=== PATIENT | male | born 1980 | race Caucasian/White ===

== ENCOUNTER 2024-12-02 14:46 | Emergency (ER) | payer BC, SELFPAY ==
[2024-12-02 14:47] VITALS: BP 153/97; PULSE 130; RESP 18; TEMP 37; O2SAT 94; BMI 26.6
--- NOTE | 2024-12-02 14:56 | CT_ITS ---
PROCEDURE: CT CHEST, ABD, PEL W/CONTRAST 12/02/2024 REASON FOR EXAM: ASCITES ?? TECHNIQUE: Chest, abdomen and pelvis CT with intravenous contrast. Coronal and Sagittal reconstruction series were provided. One or more dose reduction techniques were used (e.g., Automated exposure control, adjustment of the mA and/or kV according to patient size, use of iterative reconstruction technique. CONTRAST: Isovue 370 VOLUME: 98mL RADIATION DOSE SUMMARY: CTDlvol: 9+ 12+ 7 mGy DLP: 939 mGycm COMPARISON: None. FINDINGS: CT CHEST: The peripheral soft tissues are unremarkable. Degenerative changes of the spine. The thyroid is unremarkable. Normal caliber esophagus. No mediastinal lymphadenopathy. The heart is normal in size. Right lower lobe density with attenuation similar to paraspinal musculature with air bronchograms in a pattern favoring pneumonia CT ABDOMEN/PELVIS: The liver is enlarged, heterogeneously hypodense, with an irregular surface contour consistent with chronic liver disease. There is a focal ill-defined region adjacent to the gallbladder fossa measuring 5.2 ??? 3.5 cm, which protrudes slightly outward; a mass cannot be excluded. The parenchyma is heterogeneous with centrally located hyperdensity and linear striations, likely reflecting altered hepatic architecture. There is recanalization of the umbilical vein and tortuous upper abdominal vessels suspicious for varices. Moderate ascites is present. The gallbladder, pancreas, spleen, adrenals, and kidneys are unremarkable, with symmetric renal enhancement and no hydronephrosis. The urinary bladder and prostate are normal. The bowel is normal in caliber. The peripheral soft tissues are unremarkable. Degenerative changes are noted in the spine. CT/CT Chest, Abd, Pel w/Contrast IMPRESSION: *Findings consistent with cirrhosis and portal hypertension, evidenced by irreg ular hepatic contour, recanalized umbilical vein, varices, and moderate ascites. *Ill-defined 5.2 ??? 3.5 cm region adjacent to the gallbladder fossa-hepatocell ular carcinoma or other neoplastic process cannot be excluded. Recommend multiphase contrast-enhanced CT or MRI for further characte rization. *No additional acute abnormalities. Reading Location: [id number]
--- NOTE | 2024-12-02 14:57 | EDS_ITS ---
HPI HPI - GI History of Present Illness Chief Complaint: Edema Detail of Chief Complaint: Possible abdominal ascites. Informant: patient Abdominal Pain/Flank Pain Onset: Days Context: Gradual Onset Timing: Continuous Quality: Cramping Location: Diffuse Current Severity: Mild Maximum Severity: Mild Worsened by: Nothing Relieved by: Nothing Nausea/Vomiting/Emesis GI Symptom: Negative for Nausea Diarrhea/Melena/Hematochezia GI Symptom: Positive for - (Constipation for about a week. Has had some bowel movement.); Negative for Diarrhea, Melena or Hematochezia Onset: Days Severity: Mild Associated Symptoms Associated Symptoms: Negative for Dysuria, Frequency, Hematuria or Urgency Narrative Narrative: 43-year-old male history of fatty liver. Prior evaluation in [place] and was told he did not have cirrhosis at that time but that was a year or 2 ago. States has had abdominal swelling the last several days to a week. Also had constipation. His concern is possible ascites. Said some mild nausea. No vomiting. No diarrhea. No fever. No dysuria. No urinary retention. Says urinating well. Denies any significant weight loss. Prior similar symptoms: Yes Recent Illness/Hospitalization: No PFSH PFS Home Medications ?Medication ?Instructions ?Recorded ?Last Taken ?Type famotidine 10 mg tablet (Acid 10 mg PO DAILY 12/02/24 Unknown History Controller) simethicone 250 mg capsule (Gas-X) 250 mg PO DAILY PRN 12/02/24 Unknown History gastrointestinal spasms or cramping Allergy/AdvReac Type Severity Reaction Status Date / Time No Known Allergies Allergy Verified 12/02/24 16:24 Social History Smoking Status: Current every day smoker tobacco type: cigarettes ROS ROS ED ROS Narrative Constipation. Abdominal bloating. Cramping. Constitutional Constitutional ED: Denies chills or fever(s) ENT ENT ED: Denies ear pain Cardiovascular Cardiovascular: Denies chest pain Respiratory/Chest Respiratory/Chest: Denies cough Gastrointestinal Gastrointestinal: Reports abdominal pain, constipation and nausea; Denies diarrhea, melena or vomiting Genitourinary Genitourinary ED: Denies dysuria, hematuria or urinary frequency Musculoskeletal Musculoskeletal: Denies arthralgias, back pain or myalgias Integumentary Denies abscess or Abrasions Neurologic Neurologic: Denies headache(s) Psychiatric Psychiatric: Denies anxiety Endocrine Endocrinology: Denies polydipsia Hematologic/Lymphatic Hematologic/Lymphatic: Denies easy bleeding or easy bruising Allergic/Immunologic Allergic/Immunologic ED: Denies mouth swelling, tongue swelling or urticaria EXAM Physical Exam Narrative Exam Narrative: 43-year-old male sitting upright in bed vital signs stable afebrile. He is little tachycardic. He seems anxious. H EENT exam pupils round react light. Moist mucous membranes. Neck nontender no JVD. Lungs clear to auscultation bilaterally. Heart tachycardic 115 no murmur. Chest wall and ribs nontender. Abdomen mildly bloated. But no peritoneal signs. No localizing tenderness. No hernia no mass. No obstruction no pulsatile mass. I do not really feel an ascites wave. Moving all 4 extremities. Nontender no edema. Normal range of motion. Normal strength. Back nontender. Neurologically he is awake and alert . Answering questions following commands. No focal motor deficits. Const Vital Signs: 12/02/24 14:47 12/02/24 14:53 Temperature 98.6 F Temperature Source Temporal Pulse Rate 130 H Respiratory Rate 18 Respiratory Effort Normal Respiratory Pattern Normal Blood Pressure 153/97 H Blood Pressure Mean 115 Pulse Ox 94 Oxygen Delivery Method Room Air Positive well nourished and well developed; Negative for cachectic, contractures or unkempt General Appearance ED: well developed and NAD; Negative for unkempt, cachectic, contractures or pallor Nutritional Appearance: Negative for cachectic HEENT Reports moist mucous membranes normocephalic and atraumatic Eyes PERRL and EOMs intact bilaterally General Eye ED: Negative for pale conjunctiva or scleral icterus Neck no lymphadenopathy, supple and no JVD Resp normal respiratory effort and clear to auscultation bilaterally Cardio regular rhythm, S1 normal heart sound, S2 normal heart sound and no murmurs; Negative for regular rate Rate: tachycardic GI non-tender, non-distended and no masses Inspection: Negative for abdominal distention Auscultation: normoactive bowel sounds Palpation: soft; Negative for tender, guarding, rigid, hepatomegaly, splenomegaly, hernia, mass, pulsatile mass or rebound tenderness present Back/Spine no CVA tenderness General Back: Negative for CVA tenderness Cervical Spine: Negative for cervical spine tenderness Thoracic Spine / Upper Back: Negative for thoracic spinal tenderness Lumbar Spine / Lower Back: Negative for lumbar spinal tenderness Extremity full ROM General Extremety ED: Negative for edema or tenderness General Extremity: Negative for edema Neuro CN's II-XII intact bilaterally and moves all extremities Sensorium / Orientation: alert, oriented to person, oriented to place and oriented to time; Negative for orientation impaired Motor Exam: strength 5/5 throughout Psych mental status grossly normal and thought process normal Appearance: Negative for unkempt Attitude: No agitated Mood & Affect: anxious; Negative for depressed or tearful Skin no wounds General Skin Exam: Negative for jaundice or pallor Lesions: no lesions Rashes: no rashes Trauma: Negative for abrasion MDM MDM MDM Narrative Medical decision making narrative: 43-year-old male with concerns for possible abdominal ascites he had a very benign exam. There may be being a little bloated which may be from constipation versus rule out ascites his exam is totally benign. There is no edema in his lower extremities. Greening labs to be obtained of his abdomen and his CT of his abdomen and pelvis. Repeat exam is unchanged. I went over all the test results with the patient. His elevated liver enzymes which are significantly higher than they were 2 years ago when he had this workup done at the [facility]. His CAT scan results. I spoke to Dr. Mckeon of GI. He will ensure the patient gets close follow-up with his office this week. Patient knows to call the office tomorrow. Get scheduled for an appointment next several days. He understands he may need a liver biopsy or further imaging studies. He is comfortable being discharged home. History & Record Review Discussion w/independent historian: Patient Additional record(s) reviewed:: No prior records Lab Data Attestation: I reviewed the patient's lab results. Lab results narrative: CBC shows a white count of 16.2 H&H of 13.2 and 36. Platelets slightly low at 115. Chemistries show a gap of 18. BUN/creatinine 10 and 0.5. Glucose 120. Liver enzymes showed total bilirubin 9.4. AST of 265. ALT 79. Alk phos 262. Lipase is slightly elevated at 115. Labs: Laboratory Results - last 24 hr 12/02/24 15:04 WBC 16.2 H RBC 3.50 L Hgb 13.2 Hct 36.8 L MCV 105.1 H MCH 37.7 H MCHC 35.9 RDW Std Deviation 61.8 H RDW Coeff of Johnson 15.9 H Plt Count 115 L MPV 12.2 H Immature Gran % (Auto) 0.400 Neut % (Auto) 81.8 H Lymph % (Auto) 10.1 L Gibson % (Auto) 7.4 Eos % (Auto) 0.1 Baso % (Auto) 0.2 Absolute Neuts (auto) 13.2 H Absolute Lymphs (auto) 1.63 Nucleated RBC % 0 Sodium 133 Potassium 3.8 Chloride 93 L Carbon Dioxide 22.1 Anion Gap 18 H BUN 10 Creatinine 0.59 L Estim Creat Clear Calc 156.19 Est GFR (MDRD) Non-Af 124 BUN/Creatinine Ratio 17.3 Glucose 120 H Calcium 9.3 Total Bilirubin 9.42 H AST 265 H ALT 79 H Alkaline Phosphatase 262 H Total Protein 6.7 Albumin 3.9 Globulin 2.8 Albumin/Globulin Ratio 1.4 Lipase 115 H Radiography Diagnostic Testing: Clinical Impression(s) from Imaging Studies Chest/Abdomen/Pelvis CT 12/02/24 14:56 IMPRESSION: *Findings consistent with cirrhosis and portal hypertension, evidenced by irregular hepatic contour, recanalized umbilical vein, varices, and moderate ascites. *Ill-defined 5.2 ??? 3.5 cm region adjacent to the gallbladder fossa- hepatocellular carcinoma or other neoplastic process cannot be excluded. Recommend multiphase contrast-enhanced CT or MRI for further characterization. *No additional acute abnormalities. Reading Location: [facility] Discharge Plan Triage Chief Complaint: Edema ED Provider: Taj Nieves Dx/Rx/DC Orders Clinical Impression: Abdominal pain, Elevated liver enzymes, Abdominal ascites, Constipation Instructions: ED Ascites, ED Constipation (Adult) Prescriptions: No Action Gas-X 250 mg capsule 250 mg PO DAILY PRN (Reason: gastrointestinal spasms or cramping) famotidine [Acid Controller] 10 mg tablet 10 mg PO DAILY Primary Care Provider: Val Patrick NP Referrals: Zac Byers MD [Non-Staff] - Keegan Mckeon DO [Med Staff - Active Staff] - As soon as possible (Call the siding installer office tomorrow, Dr. Mckoen, tell them you were seen in the ER today. That I spoke to Dr. Mckeon. And that they need to get you an appointment this week.) Activity Restrictions/Additional Instructions: GoLytely for the constipation. Drink a 10 ounce glass every half an hour to an hour to give a large bowel movement. You have an enlarged liver with elevated liver enzymes and some fluid in your abdomen called ascites. I spoke to our GI doctor, Dr. Mckeon, call his office tomorrow they will get you in this week. You need further evaluation of this including possibly a liver biopsy. May be an MRI. Once they see you and look at all your test they can determine what additional testing they need to do. Print Language: Palauan Disposition Disposition: Home, Self Care
[2024-12-02 15:31] LABS: Hematocrit 36.8 % (40-54); Hemoglobin 13.2 g/dL (13.0-16.5); Immature Granulocytes Count 0.060 X10^3/uL (0.0-0.0); Mean Corp Hgb Conc 35.9 g/dL (32-36); Mean Corpuscular Volume 105.1 fL (80-94); Mean Platelet Vol. 12.2 fl (6.2-12.0); NRBC Flagged by Analyzer 0 % (0-5); Platelet Count 115 K/mm3 (150-450); RBC Distribution Width CV 15.9 % (11.6-14.6); RBC Distribution Width SD 61.8 fl (35.1-43.9); Red Blood Count 3.50 M/mm3 (4.6-6.2); White Blood Count 16.2 K/mm3 (4.4-11.0)
[2024-12-02 15:46] LABS: Lipase 115 U/L (13-75)
[2024-12-02 15:49] LABS: AST(SGOT) 265 U/L (<=37); Alanine Aminotransfer ALT/SGPT 79 U/L (<=46); Albumin, Serum 3.9 g/dL (3.5-5.0); Alkaline Phosphatase 262 U/L (40-129); Anion Gap 18 (5-15); BUN 10 mg/dL (4-19); BUN/Creat Ratio 17.3 RATIO (10-20); Calcium,Total 9.3 mg/dL (7.6-11.0); Carbon Dioxide 22.1 mmol/L (21.0-32.0); Chloride 93 mmol/L (98-108); Estimated Creatinine Clearance 156.19 ml/min (50-250); Globulin 2.8 g/dL (2.2-4.2); Glucose 120 mg/dL (70-99); Potassium 3.8 mmol/L (3.3-5.1)
[2024-12-02] MEDS: Electrolyte Solution/Peg's 4000 ML 2000 ML PO (17:07)
[2024-12-02 17:09] VITALS: BP 145/87; PULSE 114; RESP 16; TEMP 36.6; O2SAT 989
== END 2024-12-02 17:09 | disposition home or self-care (01) ==
PROVIDERS: Emergency Provider Emergency Medicine; PCP Nurse Practitioner Family; Visit Provider Emergency Medicine
DX: R10.9 Unspecified abdominal pain (principal); K59.00 Constipation, unspecified; R18.8 Other ascites; R74.8 Abnormal levels of other serum enzymes; F17.210 Nicotine dependence, cigarettes, uncomplicated
CPT/HCPCS: 71260; 74177; 80053; 83690; 85025; 99283; Q9967; A4216

== ENCOUNTER → 2024-12-04 | Outpatient (CLI) | payer BC, SELFPAY ==
[2024-12-04 12:14] LABS: Hematocrit 35.9 % (40-54); Hemoglobin 13.0 g/dL (13.0-16.5); Immature Granulocytes Count 0.100 X10^3/uL (0.0-0.0); Mean Corp Hgb Conc 36.2 g/dL (32-36); Mean Corpuscular Volume 106.8 fL (80-94); Mean Platelet Vol. 12.9 fl (6.2-12.0); NRBC Flagged by Analyzer 0 % (0-5); Platelet Count 101 K/mm3 (150-450); RBC Distribution Width CV 16.2 % (11.6-14.6); RBC Distribution Width SD 63.7 fl (35.1-43.9); Red Blood Count 3.36 M/mm3 (4.6-6.2); White Blood Count 15.6 K/mm3 (4.4-11.0)
[2024-12-04 12:26] LABS: Prothrombin Time (Protime)PT. 15.7 SECONDS (11.7-14.9)
[2024-12-04 13:47] LABS: Hepatitis B Surface Antigen Nonreactive (Nonreactive); Hepatitis C Antibody Nonreactive (Nonreactive)
[2024-12-04 13:55] LABS: AST(SGOT) 196 U/L (<=37); Alanine Aminotransfer ALT/SGPT 72 U/L (<=46); Albumin, Serum 3.6 g/dL (3.5-5.0); Alkaline Phosphatase 227 U/L (40-129); Anion Gap 21 (5-15); BUN 10 mg/dL (4-19); BUN/Creat Ratio 16.7 RATIO (10-20); Bilirubin, Direct 11.30 mg/dL (0.00-0.30); Calcium,Total 8.7 mg/dL (7.6-11.0); Carbon Dioxide 20.1 mmol/L (21.0-32.0); Chloride 88 mmol/L (98-108); Globulin 2.6 g/dL (2.2-4.2); Glucose 86 mg/dL (70-99); Potassium 3.2 mmol/L (3.3-5.1)
[2024-12-05 05:07] LABS: GGTP 1155 IU/L (0-65)
== END | disposition home or self-care (01) ==
LOC: LAB 11:32
PROVIDERS: PCP Nurse Practitioner Family; Referring Provider Nurse Practitioner Acute Care; Visit Provider Nurse Practitioner Acute Care
DX: R74.8 Abnormal levels of other serum enzymes (principal); R18.8 Other ascites; R10.9 Unspecified abdominal pain; R93.5 Abnormal findings on diagnostic imaging of other abdominal regions, including retroperitoneum
CPT/HCPCS: 36415; 80048; 80076; 82105; 82977; 85025; 85610; 86704; 86706; 86708; 86803; 87340

== ENCOUNTER → 2024-12-04 | Outpatient (CLI) | payer BC, SELFPAY ==
--- NOTE | 2024-12-04 13:50 | MRI_ITS ---
PROCEDURE: MRI ABD WITH AND W/O CONTRAST 12/04/2024 REASON FOR EXAM: ABNORMAL CT, PALPABLE ABDOMINAL MASS TECHNIQUE: MRI ABD WITH AND W/O CONTRAST Multiplanar and multisequence images were obtained. CONTRAST: Clariscan VOLUME: 15 mL COMPARISON: CT scan on 12/02/2024. FINDINGS: Bilateral basilar atelectatic pulmonary changes. Cirrhotic liver. Large number of regenerative nodules replacing the hepatic parenchyma. When correlated to the CT scan performed on 12/02/2024. The suspected liver mass adjacent to gallbladder fossa represents regenerative nodules. No suspicious enhancing nodule. No suspicious enhancing hepatic mass. Changes of portal hypertension. Recanalization of the umbilical vein. Prominent perigastric and periesophageal varices are noted. Moderate ascites is noted. Moderate mesenteric congestion. Diffuse spondylosis. Diffuse thickening of the stomach and the small bowels which is probably secondary to portal hypertension/ascites. Normal gallbladder and extrahepatic biliary system. Normal spleen. Normal pancreas. Normal bilateral adrenal glands. Normal size of the right kidney. There is no right renal mass. There are no right renal calculi. There is no right hydronephrosis. Normal visualized right ureter. Normal size of the left kidney. There is no left renal mass. There are no left renal calculi. There is no left hydronephrosis. Normal visualized left ureter. Normal abdominal aorta. Normal inferior vena cava. Normal retroperitoneum. Normal abdominal wall. MRI/MRI Abd WITH and W/O Contrast IMPRESSION: Bilateral basilar atelectatic pulmonary changes. Cirrhotic liver. Large number of regenerative nodules replacing the hepatic parenchyma. When correlated to the CT scan performed on 12/02/2024. The suspected liver mas s adjacent to gallbladder fossa represents regenerative nodules. No suspicious enhancing nodule. No suspicious enhancing hepatic mass. Changes of portal hypertension. Recanalization of the umbilical vein. Prominent perigastric and periesophageal varices are noted. Moderate ascites is noted. Moderate mesenteric congestion. Diffuse spondylosis. Diffuse thickening of the stomach and the small bowels which is probably second magdaleno to portal hypertension/ascites. Reading Location: [place] [id number]
== END | disposition home or self-care (01) ==
LOC: OPMRI 13:48
PROVIDERS: PCP Nurse Practitioner Family; Referring Provider Nurse Practitioner Acute Care; Visit Provider Nurse Practitioner Acute Care
DX: R74.8 Abnormal levels of other serum enzymes (principal); R18.8 Other ascites; R10.9 Unspecified abdominal pain; R93.5 Abnormal findings on diagnostic imaging of other abdominal regions, including retroperitoneum
CPT/HCPCS: 74183; A9575; A4216

== ENCOUNTER 2024-12-29 11:03 | Inpatient (IN) | payer BC, SELFPAY ==
[2024-12-29] VITALS (21 sets, daily range): BP systolic 77–99; BP diastolic 46–79; PULSE 56–160; RESP 14–20; TEMP 32.9–35.3; O2SAT 96–100; BMI 25.3
--- NOTE | 2024-12-29 11:24 | EKG12_ITS ---
Test Reason : ARRYTH Blood Pressure : */* mmHG Vent. Rate : 55 BPM Atrial Rate : 55 BPM P-R Int : 272 ms QRS Dur : 148 ms QT Int : 568 ms P-R-T Axes : 23 -14 27 degrees QTcB Int : 543 ms Sinus bradycardia with 1st degree A-V block Non-specific intra-ventricular conduction block Abnormal ECG Confirmed by Sher Velasquez ([id number]), editor city KELLY LOPEZ ([id number]) on 12/30/2024 11:59:06 AM Referred By: Confirmed By: Sher Velasquez
--- NOTE | 2024-12-29 11:58 | CT_ITS ---
PROCEDURE: BRAIN/HEAD WITHOUT CONTRAST 12/29/2024 REASON FOR EXAM: FALL, AMS End-stage liver disease/cirrhosis. TECHNIQUE: Procedure Code: CTBR Modality: CT Procedure: BRAIN/HEAD WITHOUT CONTRAST Coronal and Sagittal reconstruction series were provided. One or more dose reduction techniques were used (e.g., Automated exposure control, adjustment of the mA and/or kV according to patient size, use of iterative reconstruction technique. RADIATION DOSE SUMMARY: CTDlvol: 44.99 mGy DLP: 728.62 mGycm COMPARISON: None FINDINGS: Brain: Within normal limits for age CSF Spaces: Mild generalized cerebral atrophy Sinuses/Mastoids: Clear at visualized levels Bones: Unremarkable CT/Brain/Head without Contrast IMPRESSION: Mild degree of cerebral atrophy. Reading Location: [place] [id number]
--- NOTE | 2024-12-29 12:10 | EDS_ITS ---
HPI History of Present Illness Chief Complaint: Abn Labs Informant: patient and spouse/S.O. Narrative Narrative: Patient is a 44-year-old male with history of alcoholic hepatitis, jaundice, ascites and possible hepatic cell carcinoma presenting for evaluation of i ncreased weakness, worsening jaundice fall. Patient has an appointment to see nurse practitioner for GI today and was recommended that he be sent to the ER for concern of decompensated and progressive jaundice. Patient most recently was admitted at for decompensated alcoholic cirrhosis and discharged on 12/12/2024. notes that he has been worsening over the past 3 to 4 days. His last drink was December 01. He was weak and dizzy and fell in the bathroom today. He does not think he hit his head. He states that he has been compliant with his lactulose and is confused on bowel movements (denies any black or blood in his stool). Has not had his lactulose today because of doctors appointments. He denies any chest pain but does have some ongoing upper abdominal pain which is stable. Has chronic swelling to have his abdomen. Denies any urinary symptoms. No other complaints or concerns reported at this time. PFSH [facility] Medical History no medical history Home Medications ?Medication ?Instructions ?Recorded ?Last Taken ?Type famotidine 10 mg tablet (Acid 20 mg PO DAILY 12/02/24 12/29/24 History Controller) ondansetron HCl 4 mg tablet 4 mg PO Q8H nausea #3 tabs 12/04/24 Unknown Rx furosemide 20 mg tablet (Lasix) 40 mg PO QAM 12/29/24 12/29/24 History furosemide 40 mg tablet 40 mg PO DAILY 12/29/2412/15 History lactulose 10 gram/15 mL oral 20 ml PO Q8H 12/29/24 Unk nown History solution rifaximin 550 mg tablet (Xifaxan) 550 mg PO BID 12/29/24 History simethicone 80 mg chewable tablet 80 mg PO PRN 5 Unknown History (Gas Relief 80 (simethicone)) spironolactone 100 mg tablet 100 mg PO DAILY 12/29/24 12/29/24 History Allergy/AdvReac Type Severity Reaction Status Date / Time No Known Allergies Allergy Verified 12/29/24 11:06 Family History no significant family his Surgical History no surgical history Social History Smoking Status: Current every day smoker tobacco type: cigarettes alcohol intake: current alcohol intake frequency: a few times a week Alcohol type: beer ROS ROS ED Constitutional Constitutional ED: Reports chills and other Details: Generalized weakness ; Denies fever(s) Cardiovascular Cardiovascular: Denies chest pain Gastrointestinal Gastrointestinal: Reports abdominal pain; Denies melena, nausea or vomiting Musculoskeletal Musculoskeletal: Denies arthralgias or myalgias Integumentary Reports other Details: Worsening jaundice Neurologic Neurologic: Reports weakness Psychiatric Psychiatric: Denies anxiety Hematologic/Lymphatic Hematologic/Lymphatic: Reports easy bleeding and easy bruising EXAM Physical Exam Const Vital Signs: 12/29/24 11:04 12/29/24 11:06 12/29/24 11:13 Temperature 94 F L 95.4 F L Temperature Source Temporal Temporal Pulse Rate 160 H 160 H Respiratory Rate 20 H 20 H Respiratory Effort Normal Non-Labored Respiratory Pattern Blood Pressure 92/79 92/79 Blood Pressure Mean 83 83 Pulse Ox 98 98 Oxygen Delivery Method Room Air Room Air 12/29/24 12:03 12/29/24 12:06 12/29/24 13:00 Temperature 95.6 F L 95.3 F L Temperature Source Temporal Temporal Pulse Rate 57 L 56 L 57 L Respiratory Rate 20 H 18 Respiratory Effort Respiratory Pattern Blood Pressure 78/50 L 77/50 L Blood Pressure Mean 59 59 Pulse Ox 97 98 Oxygen Delivery Method Room Air Room Air 12/29/24 13:56 12/29/24 14:00 12/29/24 15:00 Temperature 95.3 F L 95.4 F L Temperature Source Temporal Temporal Pulse Rate 59 L 58 L Respiratory Rate 18 18 Respiratory Effort Respiratory Pattern Blood Pressure 80/52 L 86/50 L 87/55 L Blood Pressure Mean 61 62 65 Pulse Ox 98 98 Oxygen Delivery Method Room Air Room Air 12/29/24 15:05 12/29/24 16:00 Temperature 95.4 F L Temperature Source Oral Pulse Rate 60 64 Respiratory Rate 16 19 H Respiratory Effort Respiratory Pattern Normal Blood Pressure 93/55 L Blood Pressure Mean 67 Pulse Ox 98 Oxygen Delivery Method Room Air Positive well nourished and well developed General Appearance ED: well developed and NAD HEENT Reports moist mucous membranes Negative for trauma Eyes PERRL and EOMs intact bilaterally General Eye ED: Yes scleral icterus Neck supple Resp normal respiratory effort and clear to auscultation bilaterally Cardio regular rate and regular rhythm GI non-tender GI Narrative: Positive fluid wave Inspection: abdominal distention Palpation: soft; Negative for tender or guarding Extremity normal to inspection General Extremety ED: Negative for edema General Extremity: Negative for edema Neuro Neuro Narrative: Slightly tremulous, no asterixis Sensorium / Orientation: alert Motor Exam: general weakness Psych mental status grossly normal Skin no rashes or lesions noted and no wounds General Skin Exam: jaundice MDM MDM MDM Narrative Medical decision making narrative: Patient is evaluated for worsening generalized weakness and jaundice. Fall today denies any injury associate this fall. Has end-stage cirrhosis of the liver. Differential includes intracranial hemorrhage, decompensated liver disease, hyperammonia anemia, spontaneous bacterial peritonitis, renal failure, sepsis, electrolyte derangement and underlying infection. Patient's blood pressure soft in the emergency room and upon arrival he is quite tachycardic however this does improve with his heart rate without further intervention. Clinically he is quite jaundiced. Abdomen only minimally tender in lower suspicion for SBP based on abdominal exam. Patient has significant leukocytosis of 29 on CBC she has a normal hemoglobin. His platelets are low at 125 consistent with his history of cirrhosis. Blood cultures and lactate added on as patient is mildly hypothermic in the emergency room. He is gently rewarmed in the ER. He is given gentle IV fluids is not fluid overloaded him and his blood pressure does improve. INR is elevated 2.2 consistent again with liver failure. His BMP shows hyponatremia the sodium 121, hyperkalemia with a potassium of 6.3 and acute renal failure with a BUN of 145 and a creatinine of 16.20. Anion gap is 33 and his bicarb is 9. Due to the profound abnormalities on this I will recheck a renal function panel to ensure its accuracy however given his clinical presentation I think it is likely true. In addition his total bilirubin is now 34 with a direct bilirubin of 25.5. He has a chronic transaminitis. Ammonia is large normal at 52.2. Lipase is also elevated to 71. CT abdomen pelvis is obtained to look for any hydronephrosis or structural values of the kidney to explain his renal failure as well as looking for any signs of intra-abdominal infection. He has cirrhotic morphology of the liver with stigmata of portal hypertension and large volume ascites but otherwise normal CT. CT of the brain is obtained as he did have a fall, and is generally weak and confused. This is negative for any acute process. Patient is given sodium bicarb and calcium gluconate in the emergency room for his hyperkalemia. EKG shows slightly peaked T waves and prolonged MS interval/QTc consistent with changes associated with hyperkalemia. Renal function panel does show the same abnormalities. He still mildly hypoglycemic 65 and is given bolus of D10 in addition to the hyper-K order set. Call to GI is sent out however I think patient require transfer back to [facility] where he follows with hepatology, Dr. Renteria. Patient is given stress dose of Solu-Cortef in case he has some type of adrenal insufficiency given his acidosis, hyponatremia and hyperkalemia. Case is discussed with Dr. Zhang, nephrology who is agreeable with Lasix drip as well as sodium bicarb drip for correction of his hyperkalemia. Nursing staff attempted to place Pryor catheter however unable to advance it. Patient signed out to oncoming physician pending final disposition as patient likely require transfer to tertiary care given his severe metabolic derangements and comorbidities. Lab Data Attestation: I reviewed the patient's lab results. Labs: Laboratory Results - last 24 hr 12/29/24 12/29/24 12/29/24 12:05 13:10 13:38 WBC 29.0 H RBC 3.58 L Hgb 13.2 Hct 35.2 L MCV 98.3 H MCH 36.9 H MCHC 37.5 H RDW Std Deviation 50.1 H RDW Coeff of Johns[place] 14.0 Plt Count 125 L MPV 12.1 H Immature Gran % (Auto) 0.700 Neut % (Auto) 92.7 H Lymph % (Auto) 3.[address] [place] % (Auto) 2.7 Eos % (Auto) 0.0 Baso % (Auto) 0.1 Absolute Neuts (auto) 26.8 H Absolute Lymphs (auto) 1.10 Nucleated RBC % 0.1 PT 25.1 H INR 2.2 Sodium 121 L 120 L Potassium 6.3 H* 6.6 H* Chloride 80 L 81 L Carbon Dioxide 9.0 L* 7.2 L* Anion Gap 33 H 32 H BUN 145 H* 146 H* Creatinine 16.20 H* 16.00 H* Estim Creat Clear Calc 5.63 L* 5.70 L* Est GFR (MDRD) Non-Af 3 L 3 L BUN/Creatinine Ratio 9.0 L 9.1 L Glucose 70 65 L Lactic Acid 1.6 Calcium 7.5 L 7.3 L Phosphorus 17.0 H* Total Bilirubin 34.00 H* Direct Bilirubin 25.50 H AST 285 H ALT 145 H Alkaline Phosphatase 243 H Ammonia 52.2 Total Protein 4.9 L Albumin 2.5 L 2.4 L Globulin 2.4 Lipase 271 H POC Glucose 12/29/24 16:08 WBC RBC Hgb Hct MCV MCH MCHC RDW Std Deviation RDW Coeff of Johnson Plt Count MPV Immature Gran % (Auto) Neut % (Auto) Lymph % (Auto) [place] % (Auto) Eos % (Auto) Baso % (Auto) Absolute Neuts (auto) Absolute Lymphs (auto) Nucleated RBC % PT INR Sodium Potassium Chloride Carbon Dioxide Anion Gap BUN Creatinine Estim Creat Clear Calc Est GFR (MDRD) Non-Af BUN/Creatinine Ratio Glucose Lactic Acid Calcium Phosphorus Total Bilirubin Direct Bilirubin AST ALT Alkaline Phosphatase Ammonia Total Protein Albumin Globulin Lipase POC Glucose 310 H Radiography Diagnostic Testing: Clinical Impression(s) from Imaging Studies Brain CT 12/29/24 11:58 IMPRESSION: Mild degree of cerebral atrophy. Reading Location: [facility] Abdomen/Pelvis CT 12/29/24 13:28 IMPRESSION: Cirrhotic liver morphology. Fatty infiltration of the liver. Stigmata of portal hypertension including large volume ascites. Normal appearance of the kidneys. No collecting system dilation or calculus. Gallstones. No biliary ductal dilation. Reading Location: [id number] Rhythm Strip Rhythm Strip: Sinus Rhythm Rate: 55 Ectopy: None EKG Initial EKG: Attestation: I personally reviewed and interpreted this EKG as follows: Interpretation: Sinus Bradycardia Comments: Sinus bradycardia with first gravy block at a rate 55 bpm MS interval 272 Normal axis Prolonged QTc at 543 Nonspecific intraventricular conduction delay Normal ST segments No prior EKG available for comparison Management Discussion w/another healthcare provider: Quality Review Trainer Critical Care Time Critical Care Time: Yes Critical care time (excluding procedures): 30-74 minutes (45), Discussing w/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, Discussing w/Consultants and Arranging Admission or Transfer Discharge Plan Triage Chief Complaint: Abn Labs ED Provider: Roseline Norris Dx/Rx/DC Orders Clinical Impression: Decompensated cirrhosis, Fatigue, Acute renal failure, Acute hyperkalemia, Acute hyponatremia, Serum total bilirubin elevated, Leukocytosis Prescriptions: No Action ondansetron HCl 4 mg tablet 4 mg PO Q8H Qty: 3 0RF furosemide [Lasix] 20 mg tablet 40 mg PO QAM Xifaxan 550 mg tablet 550 mg PO BID famotidine [Acid Controller] 10 mg tablet 20 mg PO DAILY spironolactone 100 mg tablet 100 mg PO DAILY furosemide 40 mg tablet 40 mg PO DAILY simethicone [Gas Relief 80 (simethicone)] 80 mg tablet,chewable 80 mg PO PRN Rx Instructions: after meals lactulose 10 gram/15 mL solution 20 ml PO Q8H Primary Care Provider: Val Patrick NP Referrals: Val Patrick NP, [employer] [Primary Care Provider] - Print Language: [place] Disposition Disposition: Acute Care Hospital [facility]
[2024-12-29 12:28] LABS: Prothrombin Time (Protime)PT. 25.1 SECONDS (11.7-14.9)
[2024-12-29 12:47] LABS: Lipase 271 U/L (13-75)
[2024-12-29 12:55] LABS: Ammonia 52.2 umol/L (16-60)
--- NOTE | 2024-12-29 13:19 | ED.RN ---
Dr Norris notified of sepsis alert
--- NOTE | 2024-12-29 13:28 | CT_ITS ---
PROCEDURE: ABDOMEN/PELVIS WITHOUT CONT 12/29/2024 REASON FOR EXAM: ACUTE RENAL FAILURE Jaundice, ascites. Alcoholic hepatitis. TECHNIQUE: Procedure Code: CTABDPEL Modality: CT Procedure: ABDOMEN/PELVIS WITHOUT CONT Noncontrast technique limits evaluation of the abdominal and pelvic viscera. Coronal and Sagittal reconstruction series were provided. One or more dose reduction techniques were used (e.g., Automated exposure control, adjustment of the mA and/or kV according to patient size, use of iterative reconstruction technique). RADIATION DOSE SUMMARY: CTDlvol: 10 mGy DLP: 597 mGycm COMPARISON: December 04, 2024, December 02, 2024 FINDINGS: Lung bases: Atelectasis right lung base. Liver: Cirrhotic liver morphology. Recanalization of the umbilical vein. Diffuse fatty liver. No discrete reproducible mass seen, but sensitivity for masses is diminished without the use of intravenous contrast. Correlate with recent MRI performed December 04, 2024. Gallbladder: Small calculus seen dependently within the otherwise unremarkable gallbladder. Spleen: Normal. Pancreas: Normal. Adrenals: Normal. Kidneys: No calculus. No collecting system dilation. No mass seen. Bladder: Normal Reproductive Organs: Normal male Bowel: Stomach appears normal. Small bowel is normal. Colon is evacuated. Qualitative thickening likely on the basis of nondistention. A few scattered colonic diverticula are present. Lymph nodes: None appear enlarged. Vasculature: Normal caliber. Mild atherosclerotic plaque. Peritoneum / Retroperitoneum: Large volume ascites. No mass or free air. Bones: Facet hypertrophy lower lumbar spine. CT/Abdomen/Pelvis without Cont IMPRESSION: Cirrhotic liver morphology. Fatty infiltration of the liver. Stigmata of port al hypertension including large volume ascites. Normal appearance of the kidneys. No collecting system dilation or calculus. Gallstones. No biliary ductal dilation. Reading Location: [id number]
--- NOTE | 2024-12-29 13:28 | ED.RN ---
Dr Norris notified of critical lab values
[2024-12-29 13:29] LABS: AST(SGOT) 285 U/L (<=37); Alanine Aminotransfer ALT/SGPT 145 U/L (<=46); Albumin, Serum 2.5 g/dL (3.5-5.0); Alkaline Phosphatase 243 U/L (40-129); Anion Gap 33 (5-15); BUN 145 mg/dL (4-19); BUN/Creat Ratio 9.0 RATIO (10-20); Bilirubin, Direct 25.50 mg/dL (0.00-0.30); Calcium,Total 7.5 mg/dL (7.6-11.0); Carbon Dioxide 9.0 mmol/L (21.0-32.0); Chloride 80 mmol/L (98-108); Estimated Creatinine Clearance 5.63 ml/min (50-250); Globulin 2.4 g/dL (2.2-4.2); Glucose 70 mg/dL (70-99); Potassium 6.3 mmol/L (3.3-5.1)
--- NOTE | 2024-12-29 13:38 | CHAPLAIN ---
Type of Pastoral Visit _x__ Initial Visit ___ Follow-up Visit ___ On-call Visit ___ General Patient Visit ___ Spiritual Assessment ___ Family Conference ___ Bereavement ___ Rapid Response ___ Code Blue ___ Other (describe below) Pastoral Care Referral From ___ Patient ___ Family ___ Nurse ___ Physician ___ Format Proofreader ___ Treatment Technician _x__ Other (describe below) Sacrament/Intervention _x__ Active listening ___ Anointing ___ Gnosticism ___ Bereavement ___ Communion ___ Nichol exploration ___ ___ Life review ___ Prayer ___ Reconciliation ___ Sacrament of Sick _x__ Supportive presence ___ Wedding ___ Other (describe below) Pastoral Comments HRO requested a visit to be offered to this patient and his ; entered room and found both; pt is alert but weak; pt and confirm that pt has been ill and recently spent 11 days in [facility]; pt was coming for a check up here but is obviously very jaundice and compromised in health; adds to answers but states that she is doing okay for NOW with some emphasis; pt denies needs but just reiterates that he is tired
[2024-12-29] MEDS: 0.9% Normal Saline (500mL Bag) 500 ML 999 ML IV (13:52)
[2024-12-29] MEDS: Sodium Bicarbonate 8.4% 50 ML Syringe 50 MEQ IV (13:58)
[2024-12-29 14:11] LABS: Hematocrit 35.2 % (40-54); Hemoglobin 13.2 g/dL (13.0-16.5); Immature Granulocytes Count 0.200 X10^3/uL (0.0-0.0); Mean Corp Hgb Conc 37.5 g/dL (32-36); Mean Corpuscular Volume 98.3 fL (80-94); Mean Platelet Vol. 12.1 fl (6.2-12.0); NRBC Flagged by Analyzer 0.1 % (0-5); POSITIVE DIFFERENTIAL YES; Platelet Count 125 K/mm3 (150-450); RBC Distribution Width CV 14.0 % (11.6-14.6); RBC Distribution Width SD 50.1 fl (35.1-43.9); Red Blood Count 3.58 M/mm3 (4.6-6.2); White Blood Count 29.0 K/mm3 (4.4-11.0)
[2024-12-29 14:52] LABS: Differential Indicated SCAN CRITERIA MET
[2024-12-29 15:00] LABS: Albumin, Serum 2.4 g/dL (3.5-5.0); Anion Gap 32 (5-15); BUN 146 mg/dL (4-19); BUN/Creat Ratio 9.1 RATIO (10-20); Calcium,Total 7.3 mg/dL (7.6-11.0); Carbon Dioxide 7.2 mmol/L (21.0-32.0); Chloride 81 mmol/L (98-108); Estimated Creatinine Clearance 5.70 ml/min (50-250); Glucose 65 mg/dL (70-99); Potassium 6.6 mmol/L (3.3-5.1)
[2024-12-29] MEDS: Albuterol *CONC* 2.5mg/0.5mL VIAL.NEB. 10 MG INHALATION (15:21)
[2024-12-29] MEDS: Sodium Bicarbonate 150 MEQ in Dextrose 5%-Water (1000mL Bag) 1,000 ML 250 MEQ IV (15:57)
--- NOTE | 2024-12-29 16:05 | ED.RN ---
Attempt for Urinary catheter. 14Fr cath attempted a second time without success. Patient refusing further attempts. pt states he has not peed for [address] Norris notified.
[2024-12-29] MEDS: Insulin Lispro 10 UNIT in Syringe 0 ML 6 UNIT IV (16:09)
[2024-12-29] MEDS: Furosemide 500 MG in Empty Viaflex 50 mL 1 EACH CONT INF (16:11)
[2024-12-29] MEDS: Ceftriaxone 2 GM in 0.9% Normal Saline (50mL MB+) 50 ML IV (17:19)
[2024-12-29 17:57] LABS: Potassium 5.2 mmol/L (3.3-5.1)
[2024-12-29 19:13] LABS: Potassium 5.1 mmol/L (3.3-5.1)
--- NOTE | 2024-12-29 23:39 | ED.RN ---
dr lawrence made aware of the pts low bp
[2024-12-30] VITALS (47 sets, daily range): BP systolic 73–120; BP diastolic 45–66; PULSE 61–89; RESP 13–25; TEMP 33.4–35.1; O2SAT 94–98; BMI 25.2
--- NOTE | 2024-12-30 01:00 | RAD_ITS ---
PROCEDURE: CXR FOR LINE PLACEMENT 12/30/2024 REASON FOR EXAM: CENTRAL LINE PLACEMENT TECHNIQUE: Procedure Code: RADCXRLP Modality: DX Procedure: CXR FOR LINE PLACEMENT COMPARISON: CT scan on 12/02/2024. FINDINGS: Bilateral basilar atelectatic pulmonary changes. Right subclavian central catheter is in good position with its tip at the atriocaval junction. There is no demonstrated pleural abnormality. Normal heart and pericardium. Normal mediastinum and luna. Normal visualized pulmonary arteries. Normal visualized aortic arch and descending thoracic aorta. Normal visualized thoracic spine. Normal visualized ribs, clavicles, and shoulders. There is no demonstrated abnormality of the visualized soft tissue structures of the upper abdomen. RAD/CXR for Line Placement IMPRESSION: Bilateral basilar atelectatic pulmonary changes. Right subclavian central catheter is in good position with its tip at the atrio caval junction. Reading Location: [facility]
[2024-12-30] MEDS: Norepinephrine 8 MG in 0.9% Normal Saline (250mL Bag) 242 ML 9.4 MG CONT INF (01:10)
--- OUTSIDE RECORDS SUMMARY | 2024-12-30 01:21 | XMS RPT_ITS | CCD ---
Author Organization [facility] Care Team Providers Care Camera Prototyping Engineer Name Role Phone Keron LOOSE HAND PACKER.FURNITURE MOVER HELPER, [facility] Primary Care Provider KERON, CARMITA Referring Unavailable KERON, CARMITA Primary Care Unavailable KERON, CARMITA Referring Unavailable KERON, CARMITA Primary Care Unavailable Keron LOOSE HAND PACKER.FURNITURE MOVER HELPER, [facility] Primary Care Provider Keron LOOSE HAND PACKER.FURNITURE MOVER HELPER, [facility] Primary Care Provider Keron LOOSE HAND PACKER.FURNITURE MOVER HELPER, [facility] Primary Care Provider Unavailable Primary Care Provider Unavailserge Byers MD, Dr. Frank Primary Care Provider Modesta ISLAS, Dr. Frank Referring Provider Sameer Montero Attending Provider Dr. Taj Nieves MD Emergency Provider Keron MANHOLE STRIPPER-C, Carmita Primary Care Provider Keron MANHOLE STRIPPER-C, Carmita Referring Provider Marcial MANHOLE STRIPPER-C, Maria Ines Attending Provider Marcial MANHOLE STRIPPER-C, Maria Ines Referring Provider PIEDAD RIBEIRO Attending Unavailable Dr. Taj Nieves MD Attending Provider Francisco ISLAS, Brianna Unavailable BRIANNA SINGH Admitting Unavailable MELVI SHEIKH Attending Unavailable CELESTINE QUINN Referring Unavailable Taj Nieves Attending Unavailable Keron MANHOLE STRIPPER, Carmita Primary Care Unavailable Ion Saavedra Attending Unavailable Keron MANHOLE STRIPPER, [facility] Primary Care Unavailable Keron MANHOLE STRIPPER, [facility] Primary Care Unavailable Maria Ines Ceja Attending Unavailable Maria Ines Ceja Referring Unavailable Keron MANHOLE STRIPPER, [facility] Primary Care Unavailable Keron MANHOLE STRIPPER, [facility] Referring Unavailable Maria Ines Ceja Attending Unavailable Modesta, Zac Primary Care Unavailable Zac Byers Referring Unavailable Sameer Montero Attending Unavailable Maria Ines Ceja Attending Unavailable [facility] MANHOLE STRIPPER, Carmita Referring Unavailable Keron MANHOLE STRIPPER, [facility] Primary Care Unavailable Keron MANHOLE STRIPPER, [facility] Primary Care Unavailable Maria Ines Ceja Referring Unavailable Maria Ines Ceja Attending Unavailable Keron MANHOLE STRIPPER, [facility] Primary Care Unavailable Maria Ines Ceja Referring Unavailable Maria Ines Ceja Attending Unavailable Medications Current Medications Medication Drug Class(es) Dates Sig (Normalized) Sig (Original) acetaminophen 325 mg oral tablet (9 sources) take 2 tablets by mouth every six hours as needed acetaminophen (TYLENOL) 325 mg tablet Take 650 mg by mouth every 6 hours as needed. Active Comment on above: Take 650 mg by mouth every 6 hours as needed. aluminum hydroxide 40 mg/ml / magnesium hydroxide 40 mg/ml / simethicone 4 mg/ml oral suspension (1 source) Start: 12-08-2024 diazePAM 5 mg/ml injectable solution (1 source) Benzodiazepine Start: 2024 Drug or medicament (substance) (1 source) Start: 12-06-2024 ergocalciferol 1.25 mg oral capsule (7 sources) Provitamin D2 Compound Start: 02-17-2022 take 1 capsule by mouth every week VITAMIN D2 1,250 mcg (50,000 unit) capsule Take 1 capsule by mouth one time a week. 12 capsule 02/17/2022 Active Comment on above: Take 1 capsule by [facility] one time a week. famotidine 10 mg oral tablet (6 sources) Histamine-2 Receptor Antagonist Start: 12-02-2024 take 1 tablet by mouth once daily Famotidine (Acid Controller) 10 mg tablet Active 10 mg PO DAILY December 02, 2024 12:00am take 20 mg by mouth every twenty -four hours as needed folic acid 1 mg oral tablet (6 sources) Start: 2024 Start: 02-14-2022 End: 05-15-2022 take 1 tablet by mouth once daily folic acid 1 mg tablet Indications: Alcoholic liver disease (HCC) Take 1 tablet by mouth once daily. 90 tablet 1 02/14/2022 05/15/2022 Active Comment on above: Take 1 tablet by adriana th once daily. furosemide 20 mg oral tablet (8 sources) Loop Diuretic Start: 12-29-2024 take 2 tablets by mouth once daily in the morning Furosemide (Lasix) 20 mg tablet Active 40 mg PO EVERY MORNING December 29, 2024 12:00am Start: 12-12-2024 End: 12-12-2024 Start: 12-10-2024 End: 12-11-2024 Start: 12-09-2024 End: 12-10-2024 Start: 12-06-2024 End: 12-08-2024 glucagon (rdna) 1 mg injection (2 sources) Antihypoglycemic Agent Start: 12-08-2024 50 ml glucose 500 mg/ml prefilled syringe (2 sources) Start: 12-08-2024 insulin lispro 100 unt/ml injectable solution (1 source) Insulin Analog Start: 12-08-2024 iv contrast (will be provided with radiology test) (8 sources) Start: 01-09-2022 End: 01-10-2022 iv contrast (will be provided with radiology test) Indications: Hepatomegaly MRI Liver Inject, intravenously, once for 1 dose. No IV access, insert saline lock prior to the beginning of sedation, infusion, injection of imaging exam. Discontinue saline lock post exam. If Pt. has a central line or IVAD, may access for administration according to line specific nursing protocol. Once exam is complete flush line and de-access according to line specific nursing protocol in the MR contrast administration guidelines link. 1 Each 0 01/09/2022 01/10/2022 Active Start: 01-04-2022 End: 01-05-2022 iv contrast (will be provide d with radiology test) Indications: Intra-abdominal and pelvic swelling, mass and lump, unspecified site , Nausea , Abdominal bloating , Generalized abdominal pain , Weight loss , Early satiety , Alcohol abuse , Dark urine , Pulsatile abdomen , Hepatomegaly CT ABD/PEL -Inject, intravenously, once for 1 dose.No IV access, insert saline lock prior to the beginning of sedation, infusion, injection of imaging exam. Discontinue saline lock post exam. If Pt. has a central line or IVAD, may access for administration according to line specific nursing protocol. Once exam is complete flush line and de-access according to line specific nursing protocol in the CT contrast administration guidelines link. 1 Each 0 01/04/2022 01/05/2022 Start: 01-04-2022 End: 01-05-2022 iv contrast (will be provide d with radiology test) Indications: Intra-abdominal and pelvic swelling, mass and lump, unspecified site , Nausea , Abdominal bloating , Generalized abdominal pain , Weight loss , Early satiety , Alcohol abuse , Dark urine , Pulsatile abdomen , Hepatomegaly CT ABD/PEL -Inject, intravenously, once for 1 dose.No IV access, insert saline lock prior to the beginning of sedation, infusion, injection of imaging exam. Discontinue saline lock post exam. If Pt. has a central line or IVAD, may access for administration according to line specific nursing protocol. Once exam is complete flush line and de-access according to line specific nursing protocol in the CT contrast administration guidelines link. 1 Each 0 01/04/2022 01/05/2022 Active Start: 01-02-2022 End: 01-03-2022 iv contrast (will be provide d with radiology test) Indications: Nausea , Nausea and vomiting, unspecified vomiting type , Abdominal bloating , Generalized abdominal pain , Epigastric mass , Right upper quadrant abdominal mass , Abdominal mass, LUQ (left upper quadrant) , Weight loss , Early satiety , Alcohol abuse , Dark urine CT ABD/PEL -Inject, intravenously, once for 1 dose.No IV access, insert saline lock prior to the beginning of sedation, infusion, injection of imaging exam. Discontinue saline lock post exam. If Pt. has a central line or IVAD, may access for administration according to line specific nursing protocol. Once exam is complete flush line and de-access according to line specific nursing protocol in the CT contrast administration guidelines link. 1 Each 01/02/2022 01/03/2022 Start: 01-02-2022 End: 01-03-2022 iv contrast (will be provide d with radiology test) Indications: Nausea , Nausea and vomiting, unspecified vomiting type , Abdominal bloating , Generalized abdominal pain , Epigastric mass , Right upper quadrant abdominal mass , Abdominal mass, LUQ (left upper quadrant) , Weight loss , Early satiety , Alcohol abuse , Dark urine CT ABD/PEL -Inject, intravenously, once for 1 dose.No IV access, insert saline lock prior to the beginning of sedation, infusion, injection of imaging exam. Discontinue saline lock post exam. If Pt. has a central line or IVAD, may access for administration according to line specific nursing protocol. Once exam is complete flush line and de-access according to line specific nursing protocol in the CT contrast administration guidelines link. 1 Each 0 01/02/2022 01/03/2022 Start: 01-02-2022 End: 01-03-2022 iv contrast (will be provide d with radiology test) Indications: Nausea , Nausea and vomiting, unspecified vomiting type , Abdominal bloating , Generalized abdominal pain , Epigastric mass , Right upper quadrant abdominal mass , Abdominal mass, LUQ (left upper quadrant) , Weight loss , Early satiety , Alcohol abuse , Dark urine CT ABD/PEL -Inject, intravenously, once for 1 dose.No IV access, insert saline lock prior to the beginning of sedation, infusion, injection of imaging exam. Discontinue saline lock post exam. If Pt. has a central line or IVAD, may access for administration according to line specific nursing protocol. Once exam is complete flush line and de-access according to line specific nursing protocol in the CT contrast administration guidelines link. 1 Each 0 01/02/2022 01/03/2022 Active Comment on above: CT ABD/PEL -Inject, intravenously, once for 1 dose.No IV access, insert saline lock prior to the beginning of sedation, infusion, injection of imaging exam. Discontinue saline lock post exam. If Pt. has a central line or IVAD, may access for administration according to line specific nursing protocol. Once exam is complete flush line and de-access according to line specific nursing protocol in the CT contrast administration guidelines link. MRI Liver Inject, in travenously, once for 1 dose. No IV access, insert saline lock prior to the beginning of sedation, infusion, injection of imaging exam. Discontinue saline lock post exam. If Pt. has a central line or IVAD, may access for administration according to line specific nursing protocol. Once exam is complete flush line and de-access according to line specific nursing protocol in the MR contrast administration guidelines link. lactulose 80533 mg powder for oral solution (5 sources) Osmotic Laxative Start: 12-29-2024 take 20 g by mouth three times daily Lactulose 20 gram packet Active 20 g PO THREE TIMES A DAY December 29, 2024 12:00am Start: 2024 End: 04-11-2025 lidocaine 0.04 mg/mg medicated patch (2 sources) Antiarrhythmic, Amide Local Anesthetic Start: 12-08-2024 Start: 12-04-2024 End: 12-04-2024 24 hr nicotine 0.583 mg/hr transdermal system (1 source) Cholinergic Nicotinic Agonist Start: 12-06-2024 ondansetron 4 mg oral tablet (5 sources) Serotonin-3 Receptor Antagonist Start: 12-04-2024 End: 01-11-2025 pantoprazole 40 mg delayed release oral tablet (1 source) Proton Pump Inhibitor Start: 12-09-2024 polymyxin b 18767 unt/ml / trimethoprim 1 mg/ml ophthalmic solution (2 sources) Dihydrofolate Reductase Inhibitor Antibacterial, Polymyxin-class Antibacterial Start: 12-04-2024 End: 12-12-2024 take 1 drop(s) into the eye(s) every four hours polymyxin B-trimethoprim (POLYTRIM) 10,000 unit- 1 mg/mL ophthalmic solution Indications: Acute bacterial conjunctivitis of both eyes Use 1 drop in both eyes every 4 hours for 7 days. 10 mL 12/04/2024 12/11/2024 Active prednisoLONE 5 mg oral tablet (1 source) Corticosteroid Start: 12-09-2024 promethazine hydrochloride 12.5 mg oral tablet (20 sources) Phenothiazine Start: 01-02-2022 End: 10-03-2022 take 1-2 tablets by mouth every six hours as needed for nausea promethazine (PHENERGAN) 12.5 mg tablet Take 1-2 tablets by mouth every 6 hours as needed for nausea/vomiting. 30 tablet 1 10/03/2022 Active Comment on above: Take 1-2 tablets by mouth every 6 hours as needed for nausea/vomiting. rifAXIMin 550 mg oral tablet (4 sources) Rifamycin Antibacterial Start: 12-29-2024 take 1 tablet by mouth twice daily Rifaximin (Xifaxan) 550 mg tablet Active 550 mg PO TWICE A DAY December 29, 2024 12:00am Start: 2024 End: 12-12-2024 spironolactone 100 mg oral t ablet (4 sources) Aldosterone Antagonist Start: 12-12-2024 End: 12-12-2024 Start: 12-06-2024 End: 12-11-2024 thiamine 100 mg oral tablet (14 sources) Start: 12-08-2024 Start: 2024 End: 12-07-2024 Start: 02-14-2022 End: 05-15-2022 take 1 tablet by mouth once daily thiamine (VITAMIN B1) 100 mg tablet Indications: Alcoholic liver disease (HCC) Take 1 tablet by mouth once daily. 90 tablet 1 02/14/2022 Active Comment on above: [facility]. zinc acetate 50 mg oral capsule (7 sources) Start: 04-26-2023 take 1 capsule by mouth once daily Zinc Acetate, Oral, 50 mg (zinc) cap Take 1 capsule by mouth once daily. 90 capsule 04/26/2023 Active Start: 02-17-2022 take 1 capsule by [facility] once daily Zinc Acetate, Oral, 50 mg (zinc) cap Take 1 capsule by mouth once daily. 90 capsule 0 02/17/2022 Active Comment on above: Take 1 capsule by [facility] once daily. (1 source) Start: 2024 Completed/Discontinued Medications Medication Drug Class(es) Dates Sig (Normalized) Sig (Original) amoxicillin 500 mg oral tablet (5 sources) Penicillin-class Antibacterial Start: 03-05-2015 End: 12-02-2024 take 1 tablet by mouth three times daily Amoxicillin 500 MG tablet Discontinued 500 mg PO THREE TIMES A DAY 30 0 March 05, 2015 1:00am December 02, 2024 2:56pm azithromycin 500 mg oral tablet (8 sources) Macrolide Antimicrobial Start: 01-25-2019 End: 01-05-2022 take 2 tablets by mouth once daily azithromycin (ZITHROMAX) 500 mg tablet Take 2 tablets by mouth once daily. 2 tablet 01/25/2019 01/05/2022 Discontinued Comment on above: Take 2 tablets by [facility] once daily. calcium chloride 0.0014 meq/ml / potassium chloride 0.004 meq/ml / sodium chloride 0.103 meq/ml / sodium lactate 0.028 meq/ml injectable solution (2 sources) Start: 12-04-2024 End: 2024 cefTRIAXone 2000 mg injection (1 source) Cephalosporin Antibacterial Start: 2024 End: 2024 cyclobenzaprine hydrochloride 10 mg oral tablet (8 sources) Muscle Relaxant Start: 11-04-2020 End: 01-05-2022 take 1 tablet by mouth every eight hours as needed cyclobenzaprine (FLEXERIL) 10 mg tablet Take 1 tablet by mouth three times daily as needed for muscle spasm. 15 tablet 11/04/2020 01/05/2022 Discontinued Comment on above: Take 1 tablet by adriana three times daily as needed for muscle spasm. enteric contrast (will be provided with radiology test) (7 sources) Start: 01-04-2022 End: 01-05-2022 enteric contrast (will be provided with radiology test) Indications: Intra-abdominal and pelvic swelling, mass and lump, unspecified site , Nausea , Abdominal bloating , Generalized abdominal pain , Weight loss , Early satiety , Alcohol abuse , Dark urine , Pulsatile abdomen , Hepatomegaly For CT ABD/PEL W IVCON Routine order Administer, As Directed One Time Only, via Oral, Rectal, both Oral and Rectal, Enteric Tube, Stoma or Indwelling Catheter, Enteric Contrast as designated per enteric contrast guidelines 1 Each 0 01/04/2022 01/05/2022 Start: 01-04-2022 End: 01-05-2022 enteric contrast (will be pr ovided with radiology test) Indications: Intra-abdominal and pelvic swelling, mass and lump, unspecified site , Nausea , Abdominal bloating , Generalized abdominal pain , Weight loss , Early satiety , Alcohol abuse , Dark urine , Pulsatile abdomen , Hepatomegaly For CT ABD/PEL W IVCON Routine order Administer, As Directed One Time Only, via Oral, Rectal, both Oral and Rectal, Enteric Tube, Stoma or Indwelling Catheter, Enteric Contrast as designated per enteric contrast guidelines 1 Each 0 01/04/2022 01/05/2022 Active Start: 01-02-2022 End: 01-03-2022 enteric contrast (will be pr ovided with radiology test) Indications: Nausea , Nausea and vomiting, unspecified vomiting type , Abdominal bloating , Generalized abdominal pain , Epigastric mass , Right upper quadrant abdominal mass , Abdominal mass, LUQ (left upper quadrant) , Weight loss , Early satiety , Alcohol abuse , Dark urine For CT ABD/PEL W IVCON Routine order Administer, As Directed One Time Only, via Oral, Rectal, both Oral and Rectal, Enteric Tube, Stoma or Indwelling Catheter, Enteric Contrast as designated per enteric contrast guidelines 1 Each 01/02/2022 01/03/2022 Start: 01-02-2022 End: 01-03-2022 enteric contrast (will be pr ovided with radiology test) Indications: Nausea , Nausea and vomiting, unspecified vomiting type , Abdominal bloating , Generalized abdominal pain , Epigastric mass , Right upper quadrant abdominal mass , Abdominal mass, LUQ (left upper quadrant) , Weight loss , Early satiety , Alcohol abuse , Dark urine For CT ABD/PEL W IVCON Routine order Administer, As Directed One Time Only, via Oral, Rectal, both Oral and Rectal, Enteric Tube, Stoma or Indwelling Catheter, Enteric Contrast as designated per enteric contrast guidelines 1 Each 0 01/02/2022 01/03/2022 Start: 01-02-2022 End: 01-03-2022 enteric contrast (will be pr ovided with radiology test) Indications: Nausea , Nausea and vomiting, unspecified vomiting type , Abdominal bloating , Generalized abdominal pain , Epigastric mass , Right upper quadrant abdominal mass , Abdominal mass, LUQ (left upper quadrant) , Weight loss , Early satiety , Alcohol abuse , Dark urine For CT ABD/PEL W IVCON Routine order Administer, As Directed One Time Only, via Oral, Rectal, both Oral and Rectal, Enteric Tube, Stoma or Indwelling Catheter, Enteric Contrast as designated per enteric contrast guidelines 1 Each 0 01/02/2022 01/03/2022 Active Comment on above: For CT ABD/PEL W IVC ON Routine order Administer, As Directed One Time Only, via Oral, Rectal, both Oral and Rectal, Enteric Tube, Stoma or Indwelling Catheter, Enteric Contrast as designated per enteric contrast guidelines LORazepam 1 mg oral tablet (1 source) Benzodiazepine Start: 2024 End: 2024 Start: 2024 End: 2024 50 ml magnesium sulfate 40 mg/ml injection (1 source) Start: 2024 End: 2024 meloxicam 15 mg oral tablet (8 sources) Nonsteroidal Anti-inflammatory Drug Start: 07-24-2018 End: 01-05-2022 take 1 tablet by mouth once daily for pain meloxicam (MOBIC) 15 mg tablet Indications: Closed fracture of one rib of left side with routine healing, subsequent encounter Take 1 tablet by mouth once daily. for pain. Take with food. 30 tablet 07/24/2018 01/05/2022 Discontinued Comment on above: Take 1 tablet by adriana th once daily. for pain. Take with food. naproxen 500 mg oral tablet (8 sources) Nonsteroidal Anti-inflammatory Drug Start: 11-04-2020 End: 01-05-2022 take 1 tablet by mouth every twelve hours as needed naproxen (NAPROSYN) 500 mg tablet Take 1 tablet by mouth twice daily as needed (pain/inflammatio n, take with food.). 20 tablet 11/04/2020 01/05/2022 Discontinued Comment on above: Take 1 tablet by adriana th twice daily as needed (pain/inflammation, take with food.). piperacillin 3000 mg / tazobactam 375 mg injection (1 source) Penicillin-class Antibacterial, beta Lactamase Inhibitor Start: 2024 End: 12-08-2024 take 3.375 g intravenously every six hours 100 ml potassium chloride 0.2 meq/ml injection (3 sources) Start: 12-06-2024 End: 12-06-2024 Start: 2024 End: 12-06-2024 take 20 mEq intravenously every two hours predniSONE 20 mg oral tablet (1 source) Start: 12-08-2024 End: 12-09-2024 simethicone 250 mg oral capsule (6 sources) Start: 12-02-2024 End: 12-29-2024 take 1 capsule by mouth once daily as needed for muscle spasms Simethicone (Gas-X) 250 mg capsule Discontinued 250 mg PO DAILY as needed for gastrointestinal spasms or cramping December 02, 2024 12:00am December 29, 2024 10:38am take 80 mg by mouth every six ho urs as needed 1000 ml sodium chloride 9 mg/ml injection (1 source) Start: 2024 End: 2024 triamcinolone acetonide 1 mg/ml topical cream (8 sources) Corticosteroid Start: 10-30-2014 End: 01-05-2022 triamcinolone acetonide (KENALOG) 0.1 % cream Apply 1 application to affected area twice daily. 1 Tube 0 10/30/2014 01/05/2022 Discontinued Comment on above: Apply 1 application to affected area twice daily. (3 sources) Start: 12-09-2024 End: 12-09-2024 Start: 12-07-2024 End: 12-07-2024 Start: 2024 End: 2024 Problems Active Problems Problem Classification Problem Date Documented Date Episodic/Chronic Abdominal pain (20 sources) Generalized abdominal pain; Translations: [Generalized abdominal pain] Onset: 2 Resolved: 5 Episodic Alcohol-related disorders (20 sources) Alcohol abuse; Translations: [Alcohol abuse, uncomplicated] Onset: 2 Chronic Cardiac dysrhythmias (2 sources) Tachycardia; Translations: [Tachycardia, unspecified] Onset: 5 12-04-2024 Episodic Esophageal disorders (20 sources) Gastroesophageal reflux disease; Translations: [Gastro-esophageal reflux disease without esophagitis] Onset: 7 03-26-2007 Chronic Genitourinary symptoms and ill-defined conditions (8 sources) Urine looks dark; Translations: [Other abnormal findings in urine] Onset: 2 Episodic Headache; including migraine (20 sources) Migraine; Translations: [Migraine, unspecified, not intractable, without status migrainosus] Onset: 0 04-11-2021 Chronic Inflammation; infection of eye (except that caused by tuberculosis or sexually transmitteddisease) (2 sources) Acute infectious conjunctivitis; Translations: [Unspecified acute conjunctivitis, bilateral] Onset: 5 12-04-2024 Episodic Nausea and vomiting (13 sources) Nausea; Translations: [Nausea] Onset: 2 Episodic Other gastrointestinal disorders (7 sources) Abdominal bloating; Translations: [Abdominal distension (gaseous)] Episodic Other gastrointestinal disorders (3 sources) Epigastric mass; Translations: [Epigastric swelling, mass or lump] Episodic Other gastrointestinal disorders (3 sources) Right upper quadrant abdominal mass; Translations: [Right upper quadrant abdominal swelling, mass and lump] Episodic Other gastrointestinal disorders (3 sources) Abdominal mass; Translations: [Left upper quadrant abdominal swelling, mass and lump] Episodic Other gastrointestinal disorders (4 sources) Finding of abdominopelvic segment of trunk; Translations: [Intra-abdominal and pelvic swelling, mass and lump, unspecified site] Episodic Other gastrointestinal disorders (5 sources) Finding of pulsation of abdomen; Translations: [Other specified symptoms and signs involving the digestive system and abdomen] Episodic Other gastrointestinal disorders (1 source) Abdominal distension (gaseous); Translations: [Abdominal bloating] Onset: 2 Episodic Other gastrointestinal disorders (1 source) Epigastric swelling, mass or lump; Translations: [Epigastric mass] Onset: 2 Episodic Other gastrointestinal disorders (1 source) Right upper quadrant abdominal swelling, mass and lump; Translations: [Right upper quadrant abdominal mass] Onset: 2 Episodic Other gastrointestinal disorders (1 source) Left upper quadrant abdominal swelling, mass and lump; Translations: [Abdominal mass, LUQ (left upper quadrant)] Onset: 2 Episodic Other gastrointestinal disorders (10 sources) Ascites; Translations: [Other ascites] 12-02-2024 Episodic Other gastrointestinal disorders (5 sources) Constipation; Translations: [Constipation, unspecified] 12-02-2024 Episodic Other gastrointestinal disorders (4 sources) Other ascites; Translations: [Other ascites] Onset: 5 Episodic Other hematologic conditions (1 source) Hypersplenism; Translations: [Hypersplenism] Episodic Other liver diseases (9 sources) Large liver; Translations: [Hepatomegaly, not elsewhere classified] Episodic Other liver diseases (9 sources) Elevated liver enzymes level; Translations: [Abnormal levels of other serum enzymes] 12-02-2024 Episodic Other liver diseases (1 source) Jaundice; Translations: [Unspecified jaundice] 12-04-2024 Episodic Other liver diseases (1 source) Unspecified jaundice; Translations: [Jaundice] Onset: 5 Episodic Other liver diseases (1 source) Abnormal levels of other serum enzymes; Translations: [Abnormal levels of other serum enzymes] Onset: 5 Episodic Other non-traumatic joint disorders (1 source) Pain in right shoulder; Translations: [Pain in joint, shoulder region] 11-04-2020 Episodic Other nutritional; endocrine; and metabolic disorders (20 sources) Obesity; Translations: [Obesity, unspecified] Onset: 5 11-04-2014 Chronic Other nutritional; endocrine; and metabolic disorders (7 sources) Weight loss; Translations: [Abnormal weight loss] Episodic Other nutritional; endocrine; and metabolic disorders (1 source) Abnormal weight loss; Translations: [Weight loss] Onset: 2 Episodic Other screening for suspected conditions (not mental disorders or infectious disease) (9 sources) Imaging of abdomen abnormal; Translations: [Abnormal findings on diagnostic imaging of other abdominal regions, including retroperitoneum] Onset: 5 12-04-2024 Episodic Other upper respiratory disease (20 sources) Allergic rhinitis; Translations: [Allergic rhinitis, unspecified] Onset: 7 09-12-2006 Chronic Residual codes; unclassified (7 sources) Early satiety; Translations: [Early satiety] Episodic Residual codes; unclassified (1 source) Early satiety; Translations: [Early satiety] Onset: 2 Episodic Residual codes; unclassified (1 source) Current drinker; Translations: [Other specified health status] Episodic Residual codes; unclassified (1 source) Edema, unspecified; Translations: [Edema, unspecified] Onset: 5 Episodic Septicemia (except in labor) (3 sources) Sepsis; Translations: [Sepsis, unspecified organism] Onset: 5 2024 Episodic Spondylosis; intervertebral disc disorders; other back problems (20 sources) Degeneration of lumbar intervertebral disc; Translations: [Other intervertebral disc degeneration, lumbar region] Onset: 1 01-05-2011 Chronic Substance-related disorders (20 sources) Tobacco user; Translations: [Nicotine dependence, unspecified, uncomplicated] 05-09-2011 Chronic Unclassified (5 sources) Call the cuff setter office tomorrow, Dr. Mckeon, tell them you were seen in the ER today. That I spoke to Dr. Mckeon. And that they need to get you an appointment this week. Past or Other Problems Problem Classification Problem Date Documented Da te Episodic/Chronic Administrative/social admission (11 sources) Patient encounter status; Translations: [Encounter for pre-employment examination] Onset: 09-04-2024 2017 Episodic Blindness and vision defects (20 sources) Blurring of visual image; Translations: [Other visual disturbances] Onset: 11-24-2009 11-24-2009 Episodic Other eye disorders (20 sources) Dissociated deviation; Translations: [Other specified disorders of binocular movement] Onset: 11-24-2009 11-24-2009 Episodic Spondylosis; intervertebral disc disorders; other back problems (20 sources) Lumbar radiculopathy; Translations: [Radiculopathy, lumbar region] Onset: 01-11-2011 01-11-2011 Episodic Sprains and strains (20 sources) Injury of shoulder and upper arm; Translations: [Sprain and strain of unspecified site of shoulder and upper arm] Onset: 04-26-2006 04-26-2006 Episodic Results Test Name Value Interpretation Reference Range Facility Abdomen/Pelvis without Conto n 12-29-2024 Abdomen/Pelvis without Cont [facility] Imaging Services [address] [place] [address] Abdomen/Pelvis without Cont MR#: [id number] Acct: [id number] Name: JOSE PARKER Rep #: [id number] : 1980 M 44 From: Bebo Gonzalez MD PCP: Carmita Patrick, BRYN-Yovany Status: REG ER Study: Abdomen/Pelvis without Cont Date of Exam: 12/15 09/07 Exam# [id number] Ordering Dr: Roseline Norris DO PROCEDURE: ABDOMEN/PELVIS WITHOUT CONT 12/29/2024 REASON FOR EXAM: ACUTE RENAL FAILURE Jaundice, ascites. Alcoholic hepatitis. TECHNIQUE: Procedure Code: CTABDPEL Modality: CT Procedure: ABDOMEN/PELVIS WITHOUT CONT Noncontrast technique limits evaluation of the abdominal and pelvic viscera. Coronal and Sagittal reconstruction series were provided. One or more dose reduction techniques were used (e.g., Automated exposure control, adjustment of the mA and/or kV according to patient size, use of iterative reconstruction technique). RADIATION DOSE SUMMARY: CTDlvol: 10 mGy DLP: 597 mGycm COMPARISON: December 04, 2024, December 02, 2024 FINDINGS: Lung bases: Atelectasis right lung base. Liver: Cirrhotic liver morphology. Recanalization of the umbilical vein. Diffuse fatty liver. No discrete reproducible mass seen, but sensitivity for masses is diminished without the use of intravenous contrast. Correlate with recent MRI performed December 04, 2024. Gallbladder: Small calculus seen dependently within the otherwise unremarkable gallbladder. Spleen: Normal. Pancreas: Normal. Adrenals: Normal. Kidneys: No calculus. No collecting system dilation. No mass seen. Bladder: Normal Reproductive Organs: Normal male Bowel: Stomach appears normal. Small bowel is normal. Colon is evacuated. Qualitative thickening likely on the basis of nondistention. A few scattered colonic diverticula are present. Lymph nodes: None appear enlarged. Vasculature: Normal caliber. Mild atherosclerotic plaque. Peritoneum / Retroperitoneum: Large volume ascites. No mass or free air. Bones: Facet hypertrophy lower lumbar spine. CT/Abdomen/Pelvis without Cont IMPRESSION: Cirrhotic liver morphology. Fatty infiltration of the liver. Stigmata of portal hypertension including large volume ascites. Normal appearance of the kidneys. No collecting system dilation or calculus. Gallstones. No biliary ductal dilation. Reading Location: [id number] CC: RAJESH Patrick; Dr. Roseline Norris DO Radar Operator: Signed Normal [facility] Ammoniaon 12-29-2024 Ammonia (P) [Moles/Vol] 52.2 umol/L Normal 16-60 [facility] Comment on above: Performed By: #### L 500.4050, L501.2450, L100.0100 #### [facility] [address] [place], [address] Basic Metabolic Profile (BMP )on 12-29-2024 BUN/CRE 9.0 RATIO Low 10-20 [facility] Comment on above: Performed By: #### L 100.0100, L500.3400, L501.2450, L500.2500 #### [facility] [address] [place], [address] Calcium [Mass/Vol] 7.5 mg/dL Low 7.6-11.0 [facility] Comment on above: Performed By: #### L 100.0100, L500.3400, L501.2450, L500.2500 #### [facility] [address] [place], [address] Chloride [Moles/Vol] 80 mmol/L Low 98-108 [facility] Comment on above: Performed By: #### L 100.0100, L500.3400, L501.2450, L500.2500 #### [facility] [address] [place], [address] CO2 [Moles/Vol] 9.0 mmol/L Invalid Interpretation Code 21.0-32.0 [facility] Comment on above: Result Comment: Crit ical Result(s) Called to: Елена RN (ER) by: Manish??Results read back by same. Performed By: #### L 100.0100, L500.3400, L501.2450, L500.2500 #### [facility] [address] [place], [address] Creatinine [Mass/Vol] 16.20 mg/dL Invalid Interpretation Code 0.70-1.20 [facility] Comment on above: Result Comment: Icte lilia present, Results may be affected. Critical Result(s) Called at: by:??Results read back by same. Critical Result(s) Called to: Елена MCPHERSON (ER) by: Manish??Results read back by same. Performed By: #### L 100.0100, L500.3400, L501.2450, L500.2500 #### [facility] [address] [place], [address] ECRCL 5.63 ml/min Invalid Interpretation Code 50-250 [facility] Comment on above: Performed By: #### L 100.0100, L500.3400, L501.2450, L500.2500 #### [facility] [address] [place], [address] GAP 33 High 5-15 [facility] Comment on above: Performed By: #### L 100.0100, L500.3400, L501.2450, L500.2500 #### [facility] [address] [place], [address] Glucose [Mass/Vol] 70 mg/dL Normal 70-99 [facility] Comment on above: Performed By: #### L 100.0100, L500.3400, L501.2450, L500.2500 #### [facility] [address] [place], [address] Potassium [Moles/Vol] 6.3 mmol/L Invalid Interpretation Code 3.3-5.1 [facility] Comment on above: Result Comment: Crit ical Result(s) Called at: by:??Results read back by same. Critical Result(s) Called to: Елена MCPHERSON (ER) by: Manish??Results read back by same. Performed By: #### L 100.0100, L500.3400, L501.2450, L500.2500 #### [facility] [address] [place], [address] Sodium [Moles/Vol] 121 mmol/L Low 133-145 [facility] Comment on above: Performed By: #### L 100.0100, L500.3400, L501.2450, L500.2500 #### [facility] [address] [place], [address] Urea nitrogen [Mass/Vol] 145 mg/dL Invalid Interpretation Code 4-19 [facility] Comment on above: Result Comment: Crit ical Result(s) Called to: Елена MCPHERSON (ER) by: Manish??Results read back by same. Performed By: #### L 100.0100, L500.3400, L501.2450, L500.2500 #### [facility] [address] [place], [address] Bedside Glucoseon 12-29-2024 FINGERSTICK GLU 310 mg/dL High 74-106 [facility] Comment on above: Result Comment: QIAN THOMAS OF PATIENT CARE PER NURSING PROTOCOL Performed By: #### L 500.4050, L501.2450, L100.0100 #### [facility] [address] [place], [address] Brain/Head without Contrasto n 12-29-2024 Brain/Head without Contrast [facility] Imaging Services [address] [place] [address] Brain/Head without Contrast MR#: [id number] Acct: [id number] Name: JOSE PARKER Rep #: [id number] : 1980 M 44 From: Loco colon MD PCP: RAJESH Redd Status: REG ER Study: Brain/Head without Contrast Date of Exam: 12/15 09/07 Exam# [id number] Ordering Dr: Rosleine Norris DO PROCEDURE: BRAIN/HEAD WITHOUT CONTRAST 12/29/2024 REASON FOR EXAM: FALL, AMS End-stage liver disease/cirrhosis. TECHNIQUE: Procedure Code: CTBR Modality: CT Procedure: BRAIN/HEAD WITHOUT CONTRAST Coronal and Sagittal reconstruction series were provided. One or more dose reduction techniques were used (e.g., Automated exposure control, adjustment of the mA and/or kV according to patient size, use of iterative reconstruction technique. RADIATION DOSE SUMMARY: CTDlvol: 44.99 mGy DLP: 728.62 mGycm COMPARISON: None FINDINGS: Brain: Within normal limits for age CSF Spaces: Mild generalized cerebral atrophy Sinuses/Mastoids: Clear at visualized levels Bones: Unremarkable CT/Brain/Head without Contrast IMPRESSION: Mild degree of cerebral atrophy. Reading Location: [facility] CC: MANHOLE STRIPPERAlok Patrick; Dr. Roseline Norris DO Radar Operator: Signed Normal [facility] CBC W/Diff, Automatedon 12-15 Absolute Lymph 1.10 X10 3/uL Normal 0.83-4.51 [facility] Comment on above: Performed By: #### L 100.0100, L500.3400, L501.2450, L500.2500 #### [facility] [address] [place], [address] Absolute Neut 26.8 X10 3/uL High 2.0-7.7 [facility] Comment on above: Performed By: #### L 100.0100, L500.3400, L501.2450, L500.2500 #### [facility] [address] [place], [address] Basophils/100 WBC (Bld) 0.1 % Normal 0-1 [facility] Comment on above: Performed By: #### L 100.0100, L500.3400, L501.2450, L500.2500 #### [facility] [address] [place], [address] Eosinophils/100 WBC (Bld) 0.0 % Normal 0-5 [facility] Comment on above: Performed By: #### L 100.0100, L500.3400, L501.2450, L500.2500 #### [facility] [address] [place], [address] Erythrocyte distribution width (RBC) [Ratio] 14.0 % Normal 11.6-14.6 [facility] Comment on above: Performed By: #### L 100.0100, L500.3400, L501.2450, L500.2500 #### [facility] [address] [place], [address] Hematocrit (Bld) [Volume fraction] 35.2 % Low 40-54 [facility] Comment on above: Performed By: #### L 100.0100, L500.3400, L501.2450, L500.2500 #### [facility] [address] [place], [address] Hemoglobin (Bld) [Mass/Vol] 13.2 g/dL Normal 13.0-16.5 [facility] Comment on above: Performed By: #### L 100.0100, L500.3400, L501.2450, L500.2500 #### [facility] [address] [place], [address] IG% 0.700 Normal 0.0-0.9 [facility] Comment on above: Result Comment: IG% - Immature Granulocytes (promyelocytes, myelocytes and metamyelocytes) > 1% indicates that a LEFT SHIFT is Present. Performed By: #### L 100.0100, L500.3400, L501.2450, L500.2500 #### [facility] [address] [place], [address] Lymphocytes/100 WBC (Bld) 3.8 % Low 19-41 [facility] Comment on above: Performed By: #### L 100.0100, L500.3400, L501.2450, L500.2500 #### [facility] [address] [place], [address] MCH (RBC) [Entitic mass] 36.9 pg High 27.0-32.0 [facility] Comment on above: Performed By: #### L 100.0100, L500.3400, L501.2450, L500.2500 #### [facility] [address] [place], [address] MCHC (RBC) [Mass/Vol] 37.5 g/dL High 32-36 [facility] Comment on above: Performed By: #### L 100.0100, L500.3400, L501.2450, L500.2500 #### [facility] [address] [place], [address] MCV (RBC) [Entitic vol] 98.3 fL High 80-94 [facility] Comment on above: Performed By: #### L 100.0100, L500.3400, L501.2450, L500.2500 #### [facility] [address] [place], [address] Monocytes/100 WBC (Bld) 2.7 % Normal 0-10 [facility] Comment on above: Performed By: #### L 100.0100, L500.3400, L501.2450, L500.2500 #### [facility] [address] [place], [address] Neutrophils/100 WBC (Bld) 92.7 % High 47-70 [facility] Comment on above: Performed By: #### L 100.0100, L500.3400, L501.2450, L500.2500 #### [facility] [address] [place], [address] Nucleated RBC (Bld) [#/Vol] 0.1 10*3/uL Normal 0-5 [facility] Comment on above: Performed By: #### L 100.0100, L500.3400, L501.2450, L500.2500 #### [facility] [address] [place], [address] Platelet mean volume (Bld) [Entitic vol] 12.1 fL High 6.2-12.0 [facility] Comment on above: Performed By: #### L 100.0100, L500.3400, L501.2450, L500.2500 #### [facility] [address] [place], [address] Platelets (Bld) [#/Vol] 125 10*3/uL Low 150-450 [facility] Comment on above: Performed By: #### L 100.0100, L500.3400, L501.2450, L500.2500 #### [facility] [address] [place], [address] RBC (Bld) [#/Vol] 3.58 10*6/uL Low 4.6-6.2 [facility] Comment on above: Performed By: #### L 100.0100, L500.3400, L501.2450, L500.2500 #### [facility] [address] [place], [address] RDW SD 50.1 fl High 35.1-43.9 [facility] Comment on above: Performed By: #### L 100.0100, L500.3400, L501.2450, L500.2500 #### [facility] [address] [place], [address] WBC (Bld) [#/Vol] 29.0 10*3/uL High 4.4-11.0 [facility] Comment on above: Performed By: #### L 100.0100, L500.3400, L501.2450, L500.2500 #### [facility] [address] [place], [address] Emergency Department Summary on 12-29-2024 Emergency Department Summary [facility] Medical Records Department [address] [place] [address] Emergency Department Summary 12/29/24 MR#: [id number] Acct: [id number] Name: JOSE PARKER Rep #: [id number] : 1980 44 From: Roseline Norris DO PCP: RAJESH Redd Status:REG ER Location: ED ADDENDUM by Dr. Roseline Norris DO on 12/29/24 at 1713 Case discussed with ICU attending at , Dr. Higgins. Patient is accepted. He states he would like the potassium is below 5.5 for stability transport. Will obtain VBG to check patient's acid-base status and recheck patient's potassium. 12/29/24 1713 Cosigner Signature (if applicable): cc: MANHOLE STRIPPER-C Carmita Patrick * Signed HPI History of Present Illness Chief Complaint: Abn Labs Informant: patient and spouse/S.O. Narrative Narrative: Patient is a 44-year-old male with history of alcoholic hepatitis, jaundice, ascites and possible hepatic cell carcinoma presenting for evaluation of increased weakness, worsening jaundice fall. Patient has an appointment to see nurse practitioner for GI today and was recommended that he be sent to the ER for concern of decompensated and progressive jaundice. Patient most recently was admitted at for decompensated alcoholic cirrhosis and discharged on 12/12/2024. notes that he has been worsening over the past 3 to 4 days. His last drink was December 01. He was weak and dizzy and fell in the bathroom today. He does not think he hit his head. He states that he has been compliant with his lactulose and is confused on bowel movements (denies any black or blood in his stool). Has not had his lactulose today because of doctors appointments. He denies any chest pain but does have some ongoing upper abdominal pain which is stable. Has chronic swelling to have his abdomen. Denies any urinary symptoms. No other complaints or concerns reported at this time. [facility] Medical History no medical history Home Medications ???Medication ???Instructions ???Recorded ???Last Taken ???Type famotidine 10 mg tablet (Acid 20 mg PO DAILY 12/02/24 12/29/24 H istory Controller) ondansetron HCl 4 mg tablet 4 mg PO Q8H nausea #3 tabs 5 Unknown Rx furosemide 20 mg tablet (Lasix) 40 mg PO QAM 12/29/24 12/29/24 His tory furosemide 40 mg tablet 40 mg PO DAILY 12/29/24 12/29/24 H istory lactulose 10 gram/15 mL oral 20 ml PO Q8H 12/29/24 Unknown Hist ory solution rifaximin 550 mg tablet (Xifaxan) 550 mg PO BID 12/29/24 12/29/24 H istory simethicone 80 mg chewable tablet 80 mg PO PRN 12/29/24 Unknown His tory (Gas Relief 80 (simethicone)) spironolactone 100 mg tablet 100 mg PO DAILY 12/29/24 12/29/24 History Allergy/AdvReac Type Severity Reaction Status Date / Time No Known Allergies Allergy Verified 12/29/24 11:06 Family History no significant family his Surgical History no surgical history Social History Smoking Status: Current every day smoker tobacco type: cigarettes alcohol intake: current alcohol intake frequency: a few times a week Alcohol type: beer ROS ROS ED Constitutional Constitutional ED: Reports chills and other Details: Generalized weakness ; Denies fever(s) Cardiovascular Cardiovascular: Denies chest pain Gastrointestinal Gastrointestinal: Reports abdominal pain; Denies melena, nausea or vomiting Musculoskeletal Musculoskeletal: Denies arthralgias or myalgias Integumentary Reports other Details: Worsening jaundice Neurologic Neurologic: Reports weakness Psychiatric Psychiatric: Denies anxiety Hematologic/Lymphatic Hematologic/Lymphatic: Reports easy bleeding and easy bruising EXAM Physical Exam Const Vital Signs: 12/29/24 11:04 12/29/24 11:06 12/29/24 11:13 Temperature 94 F L 95.4 F L Temperature Source Temporal Temporal Pulse Rate 160 H 160 H Respiratory Rate 20 H 20 H Respiratory Effort Normal Non-Labored Respiratory Pattern Blood Pressure 92/79 92/79 Blood Pressure Mean 83 83 Pulse Ox 98 98 Oxygen Delivery Method Room Air Room Air 12/29/24 12:03 12/29/24 12:06 12/29/24 13:00 Temperature 95.6 F L 95.3 F L Temperature Source Temporal Temporal Pulse Rate 57 L 56 L 57 L Respiratory Rate 20 H 18 Respiratory Effort Respiratory Pattern Blood Pressure 78/50 L 77/50 L Blood Pressure Mean 59 59 Pulse Ox 97 98 Oxygen Delivery Method Room Air Room Air 12/29/24 13:56 12/29/24 14:00 12/29/24 15:00 Temperature 95.3 F L 95.4 F L Temperature Source Temporal Temporal Pulse Rate 59 L 58 L Respiratory Rate 18 18 Respiratory Effort Respiratory Pattern Blood Pressure 80/52 L 86/50 L 87/55 L Blood Pressure Mean 61 62 65 Pulse Ox 98 98 Oxygen Delivery (more content not included)... Normal [facility] Gastroenterology Visit Repor ton 12-29-2024 Gastroenterology Visit Report [facility] [address] [place] [address] OFFICE VISIT Date of Service: 12/29/24 MR#: [id number] Acct: [id number] Name: JOSE PARKER tK Rep #: [id number] : 1980 Provider: RAJESH bose Age/Sex: 44/M Location: [facility] [place] Status: Signed Intake Vital Signs 12/04/24 10:35 Height 5 ft 8 in Intake Visit Reasons: Follow Up from Chief Complaint: decompensated cirrhosis Allergies No Known Allergies Allergy (Verified 12/29/24 11:06) Medications ???Medication ???Instructions ???Recorded ???Confirmed ???Type famotidine 10 mg tablet (Acid 20 mg PO DAILY 12/02/24 12/29/24 H istory Controller) ondansetron HCl 4 mg tablet 4 mg PO Q8H nausea #3 tabs 5 12/29/24 Rx furosemide 20 mg tablet (Lasix) 40 mg PO QAM 12/29/24 12/29/24 His tory furosemide 40 mg tablet 40 mg PO DAILY 12/29/24 12/29/24 H istory lactulose 20 gram oral packet 20 g PO TID 12/29/24 12/29/24 Hist ory rifaximin 550 mg tablet (Xifaxan) 550 mg PO BID 12/29/24 12/29/24 H istory simethicone 80 mg chewable tablet 80 mg PO PRN 12/29/24 12/29/24 Hi story (Gas Relief 80 (simethicone)) spironolactone 100 mg tablet 100 mg PO DAILY 12/29/24 12/29/24 History PFSH Social History Smoking Status: Current every day smoker tobacco type: cigarettes alcohol intake: current alcohol intake frequency: a few times a week Alcohol type: beer HPI HPI Chief Complaint: decompensated cirrhosis Details: OV 12/04/2024 43y/o male with acute decompensated alcoholic hepatitis, with a liver mass, portal hypertension, ascites, tachycardia (120-140's), and weight loss (10 lb over 2 months). He reports a history of heavy alcohol use (6 beers nightly, ages 14???25; currently 4.5 oz vodka 2???3x/week) last drink Sunday evening, prior liver evaluation (2021), and remote tattoo exposure, presenting with 10 days of progressive abdominal distension, nausea with oral intake, and emesis. Denies pruritus, fevers, chills, night sweats, recent viral illness, muscle aches. No overt hepatic encephalopathy at present. Reports dark urine, no change in stool color. No history of IVDU, blood transfusion, or family history of liver disease. He was seen in the ED at [facility] on 12/02/2024 at which time labs were revealing for WBC 16.7, HGB 13.2, MCV 105, PLT 115, Na 133, K+ 3.8, Creat 0.59, AST 265, ALT 79, ALP 262, T bili 9.42, albumin 3.9, lipase 115. Unable to calculate MELD without INR. He was discharged with Golytely for constipation and after 3/4 bottle he is experiencing watery diarrhea. Medications: ibuprofen 400 mg a few times weekly, Gas-X, and famotidine PRN. No recent antibiotics or acetaminophen. No evidence of GIB or infection by history, but concern for SBP given decompensation. I have ordered diagnostic and therapeutic paracentesis (STAT) and will send fluid for cell count and differential, albumin, total protein, amylase, gram stain, culture, and cytology. SAAG and total protein will help determine etiology. Labs have been ordered (CBC, CMP, INR, AFP, acute hepatitis panel, GGT), to assess for infection, coagulopathy, synthetic function, and viral hepatitis. I have requested a STAT MRI for suspected HCC characterization, with anticipation of referral to tertiary center for biopsy and ongoing management. Patient Instructions: Abstain from use of all Ibuprofen. Do not take any Tylenol Abstain from all alcohol intake Sodium restriction (<2 g/day) STAT Paracentesis STAT MRI STAT labs to be completed now ABD US: 12/04/2024 1. The patient declined to complete the examination. 2. Cirrhotic morphology of the liver with moderate volume intra-abdominal ascites of the images obtained before the patient terminated the exam GI REC's 12/12/2024 #Alcohol withdrawal #Alcoholic hepatitis Presentation is consistent with alcohol withdrawal with elevated CIWA requiring BDZ. reports th epatient never having withdrawal in the past. Patient was first found to have alcoholic hepatitis in 2021 when he was told to stop alcohol but has been continuously drinking 3 4 mixed vodka drinks until recently. PETH from this admission is very elevated at 1798. Lab is consistent with alcoholic hepatitis (T seth 17.6, AST 133/ALT 53>2, ALP 173). Low Na 129. MDF58>32. Paracentesis on 12/04 with WBC 133 ruling out SBP. No albumin collected to calculate SAAG. LowTPof 2.0. UA neg. CT head negative for any acute process. Blood culture from 12/04 negative. Plan for repeat giving persistently elevated WBC though could be from steroid. The patient has started on steroid on 12/08. Bilirubin/INR without improvement on day 5 thus plan to discontinue. Again discussed importance alcohol cessation and to follow up with transplant hepatologis (more content not included)... Normal [facility] Lactic Acidon 12-29-2024 Lactate [Moles/Vol] 1.6 mmol/L Normal 0.0-2.0 [facility] Comment on above: Order Comment: Y Result Comment: Icte lilia present, Results may be affected. Performed By: #### L 503.6005 #### [facility] [address] [facility] [address] Lipaseon 12-29-2024 Lipase [Catalytic activity/Vol] 271 U/L High 13-75 [facility] Comment on above: Result Comment: Christa zarate note: LIPASE revised reference range effective 22. New Lipase methodology. Expected to produce lower values than the previous assay method. NEW Reference Range: 13 - 75 U/L Performed By: #### L 100.0100, L500.3400, L501.2450, L500.2500 #### [facility] [address] [facility] [address] Liver Profileon 12-29-2024 Albumin [Mass/Vol] 2.5 g/dL Low 3.5-5.0 [facility] Comment on above: Performed By: #### L 100.0100, L500.3400, L501.2450, L500.2500 #### [facility] [address] [facility] [address] ALK PHOS 243 U/L High 40-129 [facility] Comment on above: Performed By: #### L 100.0100, L500.3400, L501.2450, L500.2500 #### [facility] [address] [place], [address] ALT [Catalytic activity/Vol] 145 U/L High <=46 [facility] Comment on above: Performed By: #### L 100.0100, L500.3400, L501.2450, L500.2500 #### [facility] [address] [place], [address] AST [Catalytic activity/Vol] 285 U/L High <=37 [facility] Comment on above: Performed By: #### L 100.0100, L500.3400, L501.2450, L500.2500 #### [facility] [address] [place], [address] Bilirubin [Mass/Vol] 34.00 mg/dL Invalid Interpretation Code 0.00-1.30 [facility] Comment on above: Result Comment: Call ed to: Елена MCPHERSON (ER) by: Manish Performed By: #### L 100.0100, L500.3400, L501.2450, L500.2500 #### [facility] [address] [place], [address] Bilirubin.direct [Mass/Vol] 25.50 mg/dL High 0.00-0.30 [facility] Comment on above: Performed By: #### L 100.0100, L500.3400, L501.2450, L500.2500 #### [facility] [address] [place], [address] Globulin (S) [Mass/Vol] 2.4 g/dL Normal 2.2-4.2 [facility] Comment on above: Performed By: #### L 100.0100, L500.3400, L501.2450, L500.2500 #### [facility] [address] [place], [address] T PROT 4.9 g/dL Low 5.9-8.4 [facility] Comment on above: Result Comment: Icte lilia present, Results may be affected. Performed By: #### L 100.0100, L500.3400, L501.2450, L500.2500 #### [facility] [address] [place], [address] Potassiumon 12-29-2024 Potassium [Moles/Vol] 5.1 mmol/L Normal 3.3-5.1 [facility] Comment on above: Performed By: #### L 501.5600 #### [facility] [address] [place], [address] Potassium [Moles/Vol] 5.2 mmol/L High 3.3-5.1 [facility] Comment on above: Performed By: #### L 500.4050, L501.2450, L100.0100 #### [facility] [address] [place], [address] Prothrombin Time w/INRon INR Coag (PPP) [Relative time] 2.2 {INR} Normal [facility] Comment on above: Performed By: #### L 500.4050, L501.2450, L100.0100 #### [facility] [address] [place], [address] PT Coag (PPP) [Time] 25.1 s High 11.7-14.9 [facility] Comment on above: Performed By: #### L 500.4050, L501.2450, L100.0100 #### [facility] [address] [place], [address] Renal Profileon 12-29-2024 Albumin [Mass/Vol] 2.4 g/dL Low 3.5-5.0 [facility] Comment on above: Performed By: #### L 500.3600 #### [facility] [address] [place], [address] BUN/CRE 9.1 RATIO Low 10-20 [facility] Comment on above: Performed By: #### L 500.3600 #### [facility] [address] [place], [address] Calcium [Mass/Vol] 7.3 mg/dL Low 7.6-11.0 [facility] Comment on above: Performed By: #### L 500.3600 #### [facility] [address] [place], [address] Chloride [Moles/Vol] 81 mmol/L Low 98-108 [facility] Comment on above: Performed By: #### L 500.3600 #### [facility] [address] [place], [address] CO2 [Moles/Vol] 7.2 mmol/L Invalid Interpretation Code 21.0-32.0 [facility] Comment on above: Result Comment: Crit ical Result(s) Called at: by:??Results read back by same. Performed By: #### L 500.3600 #### [facility] [address] [place], [address] Creatinine [Mass/Vol] 16.00 mg/dL Invalid Interpretation Code 0.70-1.20 [facility] Comment on above: Result Comment: Icte lilia present, Results may be affected. Critical Result(s) Called at: by:??Results read back by same. Critical Result(s) Called at: by:??Results read back by same. Performed By: #### L 500.3600 #### [facility] [address] [place], [address] ECRCL 5.70 ml/min Invalid Interpretation Code 50-250 [facility] Comment on above: Performed By: #### L 500.3600 #### [facility] [address] [place], [address] GAP 32 High 5-15 [facility] Comment on above: Performed By: #### L 500.3600 #### [facility] [address] [place], [address] Glucose [Mass/Vol] 65 mg/dL Low 70-99 [facility] Comment on above: Performed By: #### L 500.3600 #### [facility] [address] [place], [address] Phosphate [Mass/Vol] 17.0 mg/dL Invalid Interpretation Code 2.7-4.5 [facility] Comment on above: Result Comment: Crit ical Result(s) Called at: by:??Results read back by same. Critical Result(s) Called at: by:??Results read back by same. Performed By: #### L 500.3600 #### [facility] [address] [place], [address] Potassium [Moles/Vol] 6.6 mmol/L Invalid Interpretation Code 3.3-5.1 [facility] Comment on above: Result Comment: Hemo lysis present, Results??could be affected. ?? Critical Result(s) Called at: by:??Results read back by same. Critical Result(s) Called at: by:??Results read back by same. Performed By: #### L 500.3600 #### [facility] [address] [place], [address] Sodium [Moles/Vol] 120 mmol/L Low 133-145 [facility] Comment on above: Performed By: #### L 500.3600 #### [facility] [address] [place], [address] Urea nitrogen [Mass/Vol] 146 mg/dL Invalid Interpretation Code 4-19 [facility] Comment on above: Result Comment: Crit ical Result(s) Called at:1458 12/29/2024 by:??URSULA STONER Results read back by same. Performed By: #### L 500.3600 #### [facility] [address] [place], [place], [address] GFR/1.73 sq M.predicted among non-blacks MDRD (S/P/Bld) [Vol rate/Area] 3 mL/min/{1.73_m2} Low >60 [facility] Comment on above: Result Comment: mL/m in/1.73m2 CKD-EPI Creatinine Equation (2020) Performed By: #### L 500.3600 #### [facility] [address] [facility] [address] [place], [place], [address] Performed By: #### L 100.0100, L500.3400, L501.2450, L500.2500 #### [facility] [address], [place], [id number] Basic metabolic 2000 panelon 12-12-2024 Anion gap [Moles/Vol] 12 mmol/L 10 - 2 0 mmol/L [facility] Calcium [Mass/Vol] 8.3 mg/dL Low 8.6 - 10. 6 mg/dL [facility] Chloride [Moles/Vol] 91 mmol/L Low 98 - 10 7 mmol/L [facility] CO2 [Moles/Vol] 32 mmol/L 21 - 32 mmol/L [facility] Creatinine [Mass/Vol] 0.81 mg/dL 0.50 - 1.30 mg/dL [facility] eGFR - PINF [facility] Glucose [Mass/Vol] 91 mg/dL 74 - 99 mg/dL [facility] Potassium [Moles/Vol] 3.9 mmol/L 3.5 - 5.3 mmol/L [facility] Sodium [Moles/Vol] 131 mmol/L Low 136 - 145 mmol/L [facility] Urea nitrogen [Mass/Vol] 12 mg/dL 6 - 23 mg/dL [facility] Anion gap [Moles/Vol] 12 mmol/L Normal 10-20 [facility] Comment on above: Performed By: #### 1 6362-6 #### ANA M Soler ([id number]) [facility] ([facility]) [address] [place] [address] Calcium [Mass/Vol] 8.3 mg/dL Low 8.6-10.6 [facility] Comment on above: Performed By: #### 1 6362-6 #### ANA M AVINA L ([id number]) [facility] ([facility]) [address] [place] [address] Chloride [Moles/Vol] 91 mmol/L Low 98-107 [facility] Comment on above: Performed By: #### 1 6362-6 #### ANA M AVINA L ([id number]) [facility] ([facility]) [address] [place] [address] CO2 [Moles/Vol] 32 mmol/L Normal 21-32 [facility] Comment on above: Performed By: #### 1 6362-6 #### ANA M AVINA L ([id number]) [facility] ([facility]) [address] [place] [address] Creatinine [Mass/Vol] 0.81 mg/dL Normal 0.50-1.30 [facility] Comment on above: Result Comment: CORNELIO VILLANUEVA ICTERUS DETECTED. The result may be falsely decreased due to icterus or other interferents. Clinical correlation is recommended. Repeat testing may be considered. Performed By: #### 1 6362-6 #### ANA M Soler ([id number]) [facility] ([facility]) [address] [place] [address] Glomerular filtration rate >90 Normal >60 [facility] Comment on above: Result Comment: Calc ulations of estimated GFR are performed using the 2020 CKD-EPI Study Refit equation without the race variable for the IDMS-Traceable creatinine methods. https://jasn.asnjournals.org/content//ASN.13264 28364 Performed By: #### 1 6362-6 #### ANA M AVINA L ([id number]) [facility] ([facility]) [address] [place] [address] Glucose [Mass/Vol] 91 mg/dL Normal 74-99 [facility] Comment on above: Performed By: #### 1 6362-6 #### ANA M INMANER L ([id number]) [facility] ([facility]) [address] [place] [address] Potassium [Moles/Vol] 3.9 mmol/L Normal 3.5-5.3 [facility] Comment on above: Performed By: #### 1 6362-6 #### ANA M SCHULTZMOTZER L ([id number]) [facility] ([facility]) [address] [place] [address] Sodium [Moles/Vol] 131 mmol/L Low 136-145 [facility] Comment on above: Performed By: #### 1 6362-6 #### ANA M BROWNTZER L ([id number]) [facility] ([facility]) [address] [place] [address] Urea nitrogen [Mass/Vol] 12 mg/dL Normal 6-23 [facility] Comment on above: Performed By: #### 1 6362-6 #### ANA M BROWNTZER L ([id number]) [facility] ([facility]) [address] [place] [address] CBC W Auto Differential pane l (Bld)on 12-12-2024 Basophils (Bld) [#/Vol] 0.04 10*3/uL [facility] Basophils/100 WBC (Bld) 0.2 % 0.0 - 2.0 % [facility] Eosinophils (Bld) [#/Vol] 0.01 10*3/uL [facility] Eosinophils/100 WBC (Bld) 0.0 % 0.0 - 6.0 % [facility] Erythrocyte distribution width (RBC) [Ratio] 17.8 % High 11.5 - 14.5 % [facility] Hematocrit (Bld) [Volume fraction] 39.9 % Low 41.0 - 52.0 % [facility] Hemoglobin (Bld) [Mass/Vol] 13.5 g/dL 13.5 - 17.5 g/dL [facility] Immature granulocytes (Bld) [#/Vol] 0.20 10*3/uL [facility] Immature granulocytes/100 WBC (Bld) 0.9 % 0.0 - 0.9 % [facility] Interpretation and review of laboratory results Abnormal [facility] Lymphocytes (Bld) [#/Vol] 1.79 10*3/uL [facility] Lymphocytes/100 WBC (Bld) 8.2 % 13.0 - 44.0 % [facility] MCH (RBC) [Entitic mass] 37.6 pg High 26.0 - 34.0 pg [facility] MCHC (RBC) [Mass/Vol] 33.8 g/dL 32.0 - 36.0 g/dL [facility] MCV (RBC) [Entitic vol] 111 fL High 80 - 100 fL [facility] Monocytes (Bld) [#/Vol] 1.62 10*3/uL High [facility] Monocytes/100 WBC (Bld) 7.5 % 2.0 - 10.0 % [facility] Neutrophils (Bld) [#/Vol] 18.05 10*3/uL High [facility] Neutrophils/100 WBC (Bld) 83.2 % 40.0 - 80.0 % [facility] Nucleated RBC/100 WBC (Bld) [Ratio] 0.0 % [facility] Platelets (Bld) [#/Vol] 223 10*3/uL [facility] RBC (Bld) [#/Vol] 3.59 10*6/uL Low [facility] WBC (Bld) [#/Vol] 21.7 10*3/uL High [facility] Basophils (Bld) [#/Vol] 0.04 x10*3/uL Normal 0.00-0.10 [facility] Comment on above: Performed By: #### 1 6362-6 #### ANA M Soler ([id number]) [facility] ([facility]) [id number] [place] [address] Basophils/100 WBC (Bld) 0.2 % Normal 0.0-2.0 [facility] Comment on above: Performed By: #### 1 6362-6 #### ANA M Soler ([id number]) [facility] ([facility]) [address] [place] [address] Eosinophils (Bld) [#/Vol] 0.01 x10*3/uL Normal 0.00-0.70 [facility] Comment on above: Performed By: #### 1 6362-6 #### ANA M Soler ([id number]) [facility] ([facility]) [address] [place] [address] Eosinophils/100 WBC (Bld) 0.0 % Normal 0.0-6.0 [facility] Comment on above: Performed By: #### 1 6362-6 #### ANA M Soler ([id number]) [facility] ([facility]) [address] [place] [address] Erythrocyte distribution width (RBC) [Ratio] 17.8 % High 11.5-14.5 [facility] Comment on above: Performed By: #### 1 6362-6 #### ANA M Soler ([id number]) [facility] ([facility]) [address] [place] [address] Hematocrit (Bld) [Volume fraction] 39.9 % Low 41.0-52.0 [facility] Comment on above: Performed By: #### 1 6362-6 #### ANA M Soler ([id number]) [facility] ([facility]) [address] [place] [address] Hemoglobin (Bld) [Mass/Vol] 13.5 g/dL Normal 13.5-17.5 [facility] Comment on above: Performed By: #### 1 6362-6 #### ANA M Soler ([id number]) [facility] ([facility]) [address] [place] [address] Immature granulocytes (Bld) [#/Vol] 0.20 x10*3/uL Normal 0.00-0.70 [facility] Comment on above: Performed By: #### 1 6362-6 #### ANA M Soler ([id number]) [facility] ([facility]) [address] [place] [address] Immature granulocytes/100 WBC (Bld) 0.9 % Normal 0.0-0.9 [facility] Comment on above: Result Comment: Johanna ture Granulocyte Count (IG) includes promyelocytes, myelocytes and metamyelocytes but does not include bands. Percent differential counts (%) should be interpreted in the context of the absolute cell counts (cells/UL). Performed By: #### 1 6362-6 #### ANA M Soler ([id number]) [facility] ([facility]) [address] [place] [address] Lymphocytes (Bld) [#/Vol] 1.79 x10*3/uL Normal 1.20-4.80 [facility] Comment on above: Performed By: #### 1 6362-6 #### ANA M Soler ([id number]) [facility] ([facility]) [address] [place] [address] Lymphocytes/100 WBC (Bld) 8.2 % Normal 13.0-44.0 [facility] Comment on above: Performed By: #### 1 6362-6 #### ANA M Soler ([id number]) [facility] ([facility]) [address] [place] [address] MCH (RBC) [Entitic mass] 37.6 pg High 26.0-34.0 [facility] Comment on above: Performed By: #### 1 6362-6 #### ANA M Soler ([id number]) [facility] ([facility]) [address] [place] [address] MCHC (RBC) [Mass/Vol] 33.8 g/dL Normal 32.0-36.0 [facility] Comment on above: Performed By: #### 1 6362-6 #### ANA M Soler ([id number]) [facility] ([facility]) [address] [place] [address] MCV (RBC) [Entitic vol] 111 fL High 80-100 [facility] Comment on above: Performed By: #### 1 6362-6 #### ANA M Soler ([id number]) [facility] ([facility]) [address] [place] [address] Monocytes (Bld) [#/Vol] 1.62 x10*3/uL High 0.10-1.00 [facility] Comment on above: Performed By: #### 1 6362-6 #### ANA M Soler ([id number]) [facility] ([facility]) [address] [place] [address] Monocytes/100 WBC (Bld) 7.5 % Normal 2.0-10.0 [facility] Comment on above: Performed By: #### 1 6362-6 #### ANA M Soler ([id number]) [facility] ([facility]) [address] [place] [address] Neutrophils (Bld) [#/Vol] 18.05 x10*3/uL High 1.20-7.70 [facility] Comment on above: Result Comment: Perc ent differential counts (%) should be interpreted in the context of the absolute cell counts (cells/uL). Performed By: #### 1 6362-6 #### ANA M Soler ([id number]) [facility] ([facility]) [address] [place] [address] Neutrophils/100 WBC (Bld) 83.2 % Normal 40.0-80.0 [facility] Comment on above: Performed By: #### 1 6362-6 #### ANA M Soler ([id number]) [facility] ([facility]) [address] [place] [address] Nucleated RBC/100 WBC (Bld) [Ratio] 0.0 /100 WBCs Normal 0.0-0.0 [facility] Comment on above: Performed By: #### 1 6362-6 #### ANA M Soler ([id number]) [facility] ([facility]) [address] [place] [address] Platelets (Bld) [#/Vol] 223 x10*3/uL Normal 150-450 [facility] Comment on above: Performed By: #### 1 6362-6 #### ANA M Soler ([id number]) [facility] ([facility]) [address] [place] [address] RBC (Bld) [#/Vol] 3.59 x10*6/uL Low 4.50-5.90 [facility] Comment on above: Performed By: #### 1 6362-6 #### ANA M Soler ([id number]) [facility] ([facility]) [address] [place] [address] WBC (Bld) [#/Vol] 21.7 x10*3/uL High 4.4-11.3 [facility] Comment on above: Performed By: #### 1 6362-6 #### ANA M Soler ([id number]) [facility] ([facility]) [address] [place] [address] Glucose Test strip manual (B ld) [Mass/Vol]on 12-12-2024 Glucose [Mass/Vol] 98 mg/dL 74 - 99 mg/dL [facility] Interpretation and review of laboratory results Normal [facility] Glucose [Mass/Vol] 98 mg/dL Normal 74-99 [facility] Comment on above: Performed By: #### 1 6362-6 #### ANA M Soler ([id number]) [facility] ([facility]) [address] [place] [address] Glucose [Mass/Vol] 94 mg/dL 74 - 99 mg/dL [facility] Interpretation and review of laboratory results Normal [facility] Glucose [Mass/Vol] 94 mg/dL Normal 74-99 [facility] Comment on above: Performed By: #### 1 6362-6 #### ANA M Soler ([id number]) [facility] ([facility]) [address] [place] [address] Hepatic function 2000 panelo n 12-12-2024 Albumin BCP dye [Mass/Vol] 2.8 g/dL Low 3.4 - 5.0 g/dL [facility] ALP [Catalytic activity/Vol] 144 U/L High 33 - 120 U/L [facility] ALT With P-5'-P [Catalytic activity/Vol] 77 U/L High 10 - 52 U/L [facility] AST With P-5'-P [Catalytic activity/Vol] 137 U/L High 9 - 39 U/L [facility] Bilirubin [Mass/Vol] 23.6 mg/dL High 0.0 - 1 .2 mg/dL [facility] Bilirubin.direct [Mass/Vol] 15.9 mg/dL High 0.0 - 0.3 mg/dL [facility] Interpretation and review of laboratory results Abnormal [facility] Protein [Mass/Vol] 5.0 g/dL Low 6.4 - 8.2 g/dL [facility] Albumin BCP dye [Mass/Vol] 2.8 g/dL Low 3.4-5.0 [facility] Comment on above: Performed By: #### 1 6362-6 #### ANA M Soler ([id number]) [facility] ([facility]) [address] [place] [address]1421 ALP [Catalytic activity/Vol] 144 U/L High 33-120 [facility] Comment on above: Result Comment: CORNELIO VILLANUEVA ICTERUS DETECTED. The result may be falsely elevated due to icterus or other interferents. Clinical correlation is recommended. Repeat testing may be considered. Performed By: #### 1 6362-6 #### ANA M Soler ([id number]) [facility] ([facility]) [address] [place] [address] ALT With P-5'-P [Catalytic activity/Vol] 77 U/L High 10-52 [facility] Comment on above: Result Comment: Kala ents treated with Sulfasalazine may generate falsely decreased results for ALT. Performed By: #### 1 6362-6 #### ANA M Soler ([id number]) [facility] ([facility]) [address] [place] [address] AST With P-5'-P [Catalytic activity/Vol] 137 U/L High 9-39 [facility] Comment on above: Performed By: #### 1 6362-6 #### ANA M Soler ([id number]) [facility] ([facility]) [address] [place] [address] Bilirubin [Mass/Vol] 23.6 mg/dL High 0.0-1.2 [facility] Comment on above: Performed By: #### 1 6362-6 #### ANA M Soler ([id number]) [facility] ([facility]) [address] [place] [address]3616 Bilirubin.direct [Mass/Vol] 15.9 mg/dL High 0.0-0.3 [facility] Comment on above: Performed By: #### 1 6362-6 #### ANA M Soler ([id number]) [facility] ([facility]) [address] [place] [address]15 Protein [Mass/Vol] 5.0 g/dL Low 6.4-8.2 [facility] Comment on above: Performed By: #### 1 6362-6 #### ANA M Soler ([id number]) [facility] ([facility]) [address] [place] [address] 63734 Magnesiumon 12-12-2024 Magnesium [Mass/Vol] 2.53 mg/dL High 1.60 - 2.40 mg/dL [facility] Magnesium [Mass/Vol] 2.53 mg/dL High 1.60-2.40 [facility] Comment on above: Result Comment: CORNELIO VILLANUEVA ICTERUS DETECTED. The result may be falsely elevated due to icterus or other interferents. Clinical correlation is recommended. Repeat testing may be considered. Performed By: #### 1 6362-6 #### ANA M Soler ([id number]) [facility] ([facility]) [address] [place], [place] [id number] No Panel Informationon 12-12 Interpretation and review of laboratory results Abnormal [facility] PT and aPTT panel Coag (PPP) on 12-12-2024 aPTT Coag (PPP) [Time] 27 s Un [facility] INR Coag (PPP) [Relative time] 1.6 {INR} High 0.9 - 1.1 [facility] Interpretation and review of laboratory results Abnormal [facility] PT Coag (PPP) [Time] 17.2 s High [facility] aPTT Coag (PPP) [Time] 27 s Normal 26-36 [facility] Comment on above: Order Comment: The A PTT is no longer used for monitoring Unfractionated Heparin Therapy. For monitoring Heparin Therapy, use the Heparin Assay. Performed By: #### 1 6362-6 #### ANA M Soler ([id number]) [facility] ([facility]) [address] [place] [address] 969[address] INR Coag (PPP) [Relative time] 1.6 High 0.9-1.1 [facility] Comment on above: Order Comment: The A PTT is no longer used for monitoring Unfractionated Heparin Therapy. For monitoring Heparin Therapy, use the Heparin Assay. Performed By: #### 1 6362-6 #### ANA M Soler ([id number]) [facility] ([facility]) [address] [place] [address]247 PT Coag (PPP) [Time] 17.2 s High 9.8-12.4 [facility] Comment on above: Order Comment: The A PTT is no longer used for monitoring Unfractionated Heparin Therapy. For monitoring Heparin Therapy, use the Heparin Assay. Performed By: #### 1 6362-6 #### ANA M Soler ([id number]) [facility] ([facility]) [address] [place] [address] 99565 Phosphateon 12-12-2024 Phosphate [Mass/Vol] 2.4 mg/dL Low 2.5-4.9 [facility] Comment on above: Performed By: #### 1 6362-6 #### ANA M Soler ([id number]) [facility] ([facility]) [address] [place] [address] 41673 Phosphoruson 12-12-2024 Phosphate [Mass/Vol] 2.4 mg/dL Low 2.5 - 4 .9 mg/dL [facility] Alpha 1 antitrypsin phenotyp ing [Interp]on 12-11-2024 Alpha 1 antitrypsin [Mass/Vol] 257 mg/dL High 90 - 200 mg/dL [facility] Interpretation and review of laboratory results Abnormal [facility] Alpha-1 Antitrypsin Phenotyp jennifer 12-11-2024 Alpha 1 antitrypsin phenotyping [Interp] MM [facility] Basic metabolic 2000 panelon 12-11-2024 Anion gap [Moles/Vol] 14 mmol/L 10 - 2 0 mmol/L [facility] Calcium [Mass/Vol] 8.4 mg/dL Low 8.6 - 10. 6 mg/dL [facility] Chloride [Moles/Vol] 91 mmol/L Low 98 - 10 7 mmol/L [facility] CO2 [Moles/Vol] 32 mmol/L 21 - 32 mmol/L [facility] Creatinine [Mass/Vol] 0.75 mg/dL 0.50 - 1.30 mg/dL [facility] eGFR - PINF [facility] Glucose [Mass/Vol] 72 mg/dL Low 74 - 99 mg/dL [facility] Interpretation and review of laboratory results Abnormal [facility] Potassium [Moles/Vol] 3.6 mmol/L 3.5 - 5.3 mmol/L [facility] Sodium [Moles/Vol] 133 mmol/L Low 136 - 145 mmol/L [facility] Urea nitrogen [Mass/Vol] 12 mg/dL 6 - 23 mg/dL [facility] Anion gap [Moles/Vol] 14 mmol/L Normal 10-20 [facility] Comment on above: Performed By: #### 1 6362-6 #### ANA M Soler ([id number]) [facility] ([facility]) [address] [place] [address] Calcium [Mass/Vol] 8.4 mg/dL Low 8.6-10.6 [facility] Comment on above: Performed By: #### 1 6362-6 #### ANA M BROWNTZER L ([id number]) [facility] ([facility]) [address] [place] [address] Chloride [Moles/Vol] 91 mmol/L Low 98-107 [facility] Comment on above: Performed By: #### 1 6362-6 #### ANA M SCHULTZMOTZER L ([id number]) [facility] ([facility]) [address] [place] [address] CO2 [Moles/Vol] 32 mmol/L Normal 21-32 [facility] Comment on above: Performed By: #### 1 6362-6 #### ANA M SCHULTZMOTZER L ([id number]) [facility] ([facility]) [address] [place] [address] Creatinine [Mass/Vol] 0.75 mg/dL Normal 0.50-1.30 [facility] Comment on above: Result Comment: CORNELIO VILLANUEVA ICTERUS DETECTED. The result may be falsely decreased due to icterus or other interferents. Clinical correlation is recommended. Repeat testing may be considered. Performed By: #### 1 6362-6 #### ANA M INMANER L ([id number]) [facility] ([facility]) [address] [place] [address] Glomerular filtration rate >90 Normal >60 [facility] Comment on above: Result Comment: Calc ulations of estimated GFR are performed using the 2020 CKD-EPI Study Refit equation without the race variable for the IDMS-Traceable creatinine methods. https://jasn.asnjournals.org/content/early//ASN.58723 68507 Performed By: #### 1 6362-6 #### ANA M SCHULTZMOTZER L ([id number]) [facility] ([facility]) [address] [place] [address] Glucose [Mass/Vol] 72 mg/dL Low 74-99 [facility] Comment on above: Performed By: #### 1 6362-6 #### ANA M SCHULTZMOTZER L ([id number]) [facility] ([facility]) [address] [place] [address] Potassium [Moles/Vol] 3.6 mmol/L Normal 3.5-5.3 [facility] Comment on above: Performed By: #### 1 6362-6 #### ANA M AVINA L ([id number]) [facility] ([facility]) [address] [place] [address] Sodium [Moles/Vol] 133 mmol/L Low 136-145 [facility] Comment on above: Performed By: #### 1 6362-6 #### ANA M AVINA L ([id number]) [facility] ([facility]) [address] [place] [address] Urea nitrogen [Mass/Vol] 12 mg/dL Normal 6-23 [facility] Comment on above: Performed By: #### 1 6362-6 #### ANA M AVINA L ([id number]) [facility] ([facility]) [address] [place] [address] CBC W Auto Differential pane l (Bld)on 12-11-2024 Basophils (Bld) [#/Vol] 0.06 10*3/uL [facility] Basophils/100 WBC (Bld) 0.3 % 0.0 - 2.0 % [facility] Eosinophils (Bld) [#/Vol] 0.01 10*3/uL [facility] Eosinophils/100 WBC (Bld) 0.1 % 0.0 - 6.0 % [facility] Erythrocyte distribution width (RBC) [Ratio] 18.3 % High 11.5 - 14.5 % [facility] Hematocrit (Bld) [Volume fraction] 39.3 % Low 41.0 - 52.0 % [facility] Hemoglobin (Bld) [Mass/Vol] 13.4 g/dL Low 13.5 - 17.5 g/dL [facility] Immature granulocytes (Bld) [#/Vol] 0.25 10*3/uL [facility] Immature granulocytes/100 WBC (Bld) 1.4 % High 0.0 - 0.9 % [facility] Interpretation and review of laboratory results Abnormal [facility] Lymphocytes (Bld) [#/Vol] 1.87 10*3/uL [facility] Lymphocytes/100 WBC (Bld) 10.3 % 13.0 - 44.0 % [facility] MCH (RBC) [Entitic mass] 37.9 pg High 26.0 - 34.0 pg [facility] MCHC (RBC) [Mass/Vol] 34.1 g/dL 32.0 - 36.0 g/dL [facility] MCV (RBC) [Entitic vol] 111 fL High 80 - 100 fL [facility] Monocytes (Bld) [#/Vol] 1.94 10*3/uL [facility] Monocytes/100 WBC (Bld) 10.6 % 2.0 - 10.0 % [facility] Neutrophils (Bld) [#/Vol] 14.09 10*3/uL [facility] Neutrophils/100 WBC (Bld) 77.3 % 40.0 - 80.0 % [facility] Nucleated RBC/100 WBC (Bld) [Ratio] 0.1 % High [facility] Platelets (Bld) [#/Vol] 216 10*3/uL [facility] RBC (Bld) [#/Vol] 3.54 10*6/uL Low [facility] WBC (Bld) [#/Vol] 18.2 10*3/uL High [facility] Basophils (Bld) [#/Vol] 0.06 x10*3/uL Normal 0.00-0.10 [facility] Comment on above: Performed By: #### 1 6362-6 #### ANA M Soler ([id number]) [facility] ([facility]) [address] [place] [address] Basophils/100 WBC (Bld) 0.3 % Normal 0.0-2.0 [facility] Comment on above: Performed By: #### 1 6362-6 #### ANA M Soler ([id number]) [facility] ([facility]) [address] [place] [address] Eosinophils (Bld) [#/Vol] 0.01 x10*3/uL Normal 0.00-0.70 [facility] Comment on above: Performed By: #### 1 6362-6 #### ANA M Soler ([id number]) [facility] ([facility]) [address] [place] [address]1461 Eosinophils/100 WBC (Bld) 0.1 % Normal 0.0-6.0 [facility] Comment on above: Performed By: #### 1 6362-6 #### ANA M Soler ([id number]) [facility] ([facility]) [address] [place] [address]757 Erythrocyte distribution width (RBC) [Ratio] 18.3 % High 11.5-14.5 [facility] Comment on above: Performed By: #### 1 6362-6 #### ANA M Soler ([id number]) [facility] ([facility]) [address] [place] [address]76 Hematocrit (Bld) [Volume fraction] 39.3 % Low 41.0-52.0 [facility] Comment on above: Performed By: #### 1 6362-6 #### ANA M Soler ([id number]) [facility] ([facility]) [address] [place] [address]012 Hemoglobin (Bld) [Mass/Vol] 13.4 g/dL Low 13.5-17.5 [facility] Comment on above: Performed By: #### 1 6362-6 #### ANA M Soler ([id number]) [facility] ([facility]) [address] [place] [address]20 Immature granulocytes (Bld) [#/Vol] 0.25 x10*3/uL Normal 0.00-0.70 [facility] Comment on above: Performed By: #### 1 6362-6 #### ANA M Soler ([id number]) [facility] ([facility]) [address] [place] [address]402 Immature granulocytes/100 WBC (Bld) 1.4 % High 0.0-0.9 [facility] Comment on above: Result Comment: Johanna ture Granulocyte Count (IG) includes promyelocytes, myelocytes and metamyelocytes but does not include bands. Percent differential counts (%) should be interpreted in the context of the absolute cell counts (cells/UL). Performed By: #### 1 6362-6 #### ANA M Soler ([id number]) [facility] ([facility]) [address] [place] [address] Lymphocytes (Bld) [#/Vol] 1.87 x10*3/uL Normal 1.20-4.80 [facility] Comment on above: Performed By: #### 1 6362-6 #### ANA M Soler ([id number]) [facility] ([facility]) [address] [place] [address] Lymphocytes/100 WBC (Bld) 10.3 % Normal 13.0-44.0 [facility] Comment on above: Performed By: #### 1 6362-6 #### ANA M Soler ([id number]) [facility] ([facility]) [address] [place] [address] MCH (RBC) [Entitic mass] 37.9 pg High 26.0-34.0 [facility] Comment on above: Performed By: #### 1 6362-6 #### ANA M Soler ([id number]) [facility] ([facility]) [address] [place] [address] MCHC (RBC) [Mass/Vol] 34.1 g/dL Normal 32.0-36.0 [facility] Comment on above: Performed By: #### 1 6362-6 #### ANA M Soler ([id number]) [facility] ([facility]) [address] [place] [address] MCV (RBC) [Entitic vol] 111 fL High 80-100 [facility] Comment on above: Performed By: #### 1 6362-6 #### ANA M Soler ([id number]) [facility] ([facility]) [address] [place] [address] Monocytes (Bld) [#/Vol] 1.94 x10*3/uL High 0.10-1.00 [facility] Comment on above: Performed By: #### 1 6362-6 #### ANA M Soler ([id number]) [facility] ([facility]) [address] [place] [address] Monocytes/100 WBC (Bld) 10.6 % Normal 2.0-10.0 [facility] Comment on above: Performed By: #### 1 6362-6 #### ANA M Soler ([id number]) [facility] ([facility]) [address] [place] [address] Neutrophils (Bld) [#/Vol] 14.09 x10*3/uL High 1.20-7.70 [facility] Comment on above: Result Comment: Perc ent differential counts (%) should be interpreted in the context of the absolute cell counts (cells/uL). Performed By: #### 1 6362-6 #### ANA M Soler ([id number]) [facility] ([facility]) [address] [place] [address] Neutrophils/100 WBC (Bld) 77.3 % Normal 40.0-80.0 [facility] Comment on above: Performed By: #### 1 6362-6 #### ANA M Soler ([id number]) [facility] ([facility]) [address] [place] [address] 78235 Nucleated RBC/100 WBC (Bld) [Ratio] 0.1 /100 WBCs High 0.0-0.0 [facility] Comment on above: Performed By: #### 1 6362-6 #### ANA M Soler ([id number]) [facility] ([facility]) [address] [place] [address] Platelets (Bld) [#/Vol] 216 x10*3/uL Normal 150-450 [facility] Comment on above: Performed By: #### 1 6362-6 #### ANA M Soler ([id number]) [facility] ([facility]) [address] [place] [address] RBC (Bld) [#/Vol] 3.54 x10*6/uL Low 4.50-5.90 [facility] Comment on above: Performed By: #### 1 6362-6 #### ANA M Soler ([id number]) [facility] ([facility]) [address] [place] [address] WBC (Bld) [#/Vol] 18.2 x10*3/uL High 4.4-11.3 [facility] Comment on above: Performed By: #### 1 6362-6 #### ANA M Soler ([id number]) [facility] ([facility]) [address] [place] [address] Cobalamin (Vitamin B12) [Mas s/Vol]on 12-11-2024 Interpretation and review of laboratory results Normal [facility] Cobalaminson 12-11-2024 Cobalamin (Vitamin B12) [Mass/Vol] 859 pg/mL Normal 211-911 [facility] Comment on above: Performed By: #### 1 6362-6 #### ANA M Soler ([id number]) [facility] ([facility]) [address] [place] [address] 68689 Folateon 12-11-2024 Folate [Mass/Vol] 12.9 ng/mL 5.0 - PINF ng/mL [facility] Folate [Mass/Vol] 12.9 ng/mL Normal >5.0 [facility] Comment on above: Order Comment: Low < 3.4Borderline 3.4-5.0Normal >5.0Patients receiving more than 5 mg/day of biotin may have interference in test results. A sample should be taken no sooner than eight hours after previous dose. Contact the testing laboratory for additional information. Performed By: #### 1 6362-6 #### ANA M Soler ([id number]) [facility] ([facility]) [address] [place] [address] 36930 Folate [Mass/Vol]on 12-12-19 Interpretation and review of laboratory results Normal [facility] Glucose Test strip manual (B ld) [Mass/Vol]on 12-11-2024 Glucose [Mass/Vol] 116 mg/dL High 74 - 99 mg/dL [facility] Interpretation and review of laboratory results Abnormal [facility] Glucose [Mass/Vol] 116 mg/dL High 74-99 [facility] Comment on above: Performed By: #### 1 6362-6 #### ANA M Soler ([id number]) [facility] ([facility]) [address] [place] [address] 39634 Glucose [Mass/Vol] 141 mg/dL High 74 - 99 mg/dL [facility] Interpretation and review of laboratory results Abnormal [facility] Glucose [Mass/Vol] 141 mg/dL High 74-99 [facility] Comment on above: Performed By: #### 1 6362-6 #### ANA M Soler ([id number]) [facility] ([facility]) [address] [place] [address] 54577 Glucose [Mass/Vol] 113 mg/dL High 74 - 99 mg/dL [facility] Interpretation and review of laboratory results Abnormal [facility] Glucose [Mass/Vol] 113 mg/dL High 74-99 [facility] Comment on above: Performed By: #### 1 6362-6 #### ANA M Soler ([id number]) [facility] ([facility]) [address] [place] [address] 33226 Glucose [Mass/Vol] 77 mg/dL 74 - 99 mg/dL [facility] Interpretation and review of laboratory results Normal [facility] Glucose [Mass/Vol] 77 mg/dL Normal 74-99 [facility] Comment on above: Performed By: #### 1 6362-6 #### ANA M Soler ([id number]) [facility] ([facility]) [address] [place] [address] 87830 Hepatic function 2000 panelo n 12-11-2024 Albumin BCP dye [Mass/Vol] 3.0 g/dL Low 3.4 - 5.0 g/dL [facility] ALP [Catalytic activity/Vol] 164 U/L High 33 - 120 U/L [facility] ALT With P-5'-P [Catalytic activity/Vol] 74 U/L High 10 - 52 U/L [facility] AST With P-5'-P [Catalytic activity/Vol] 134 U/L High 9 - 39 U/L [facility] Bilirubin [Mass/Vol] 22.9 mg/dL High 0.0 - 1 .2 mg/dL [facility] Bilirubin.direct [Mass/Vol] 14.7 mg/dL High 0.0 - 0.3 mg/dL [facility] Interpretation and review of laboratory results Abnormal [facility] Protein [Mass/Vol] 5.4 g/dL Low 6.4 - 8.2 g/dL [facility] Albumin BCP dye [Mass/Vol] 3.0 g/dL Low 3.4-5.0 [facility] Comment on above: Performed By: #### 1 6362-6 #### ANA M Soler ([id number]) [facility] ([facility]) [address] [place] [address] 10027 ALP [Catalytic activity/Vol] 164 U/L High 33-120 [facility] Comment on above: Result Comment: CORNELIO VILLANUEVA ICTERUS DETECTED. The result may be falsely elevated due to icterus or other interferents. Clinical correlation is recommended. Repeat testing may be considered. Performed By: #### 1 6362-6 #### ANA M Soler ([id number]) [facility] ([facility]) [address] [place] [address] 08421 ALT With P-5'-P [Catalytic activity/Vol] 74 U/L High 10-52 [facility] Comment on above: Result Comment: Kala ents treated with Sulfasalazine may generate falsely decreased results for ALT. Performed By: #### 1 6362-6 #### ANA M Soler ([id number]) [facility] ([facility]) [address] [place] [address] 61107 AST With P-5'-P [Catalytic activity/Vol] 134 U/L High 9-39 [facility] Comment on above: Performed By: #### 1 6362-6 #### ANA M Soler ([id number]) [facility] ([facility]) [address] [place], [place] [address] Bilirubin [Mass/Vol] 22.9 mg/dL High 0.0-1.2 [facility] Comment on above: Performed By: #### 1 6362-6 #### ANA M Soler ([id number]) [facility] ([facility]) [address] [place] [address] 88856 Bilirubin.direct [Mass/Vol] 14.7 mg/dL High 0.0-0.3 [facility] Comment on above: Performed By: #### 1 6362-6 #### ANA M Soler ([id number]) [facility] ([facility]) [address] [place] [address] Protein [Mass/Vol] 5.4 g/dL Low 6.4-8.2 [facility] Comment on above: Performed By: #### 1 6362-6 #### ANA M Soler ([id number]) [facility] ([facility]) [address] [place] [address] Magnesiumon 12-11-2024 Magnesium [Mass/Vol] 2.50 mg/dL High 1.60 - 2.40 mg/dL [facility] Magnesium [Mass/Vol] 2.50 mg/dL High 1.60-2.40 [facility] Comment on above: Result Comment: CORNELIO VILLANUEVA ICTERUS DETECTED. The result may be falsely elevated due to icterus or other interferents. Clinical correlation is recommended. Repeat testing may be considered. Performed By: #### 1 6362-6 #### ANA M Soler ([id number]) [facility] ([facility]) [address] [place], [place] [phone] No Panel Informationon 12-11 Interpretation and review of laboratory results Abnormal [facility] PT and aPTT panel Coag (PPP) on 12-11-2024 aPTT Coag (PPP) [Time] 26 s Un [facility] INR Coag (PPP) [Relative time] 1.4 {INR} High 0.9 - 1.1 [facility] Interpretation and review of laboratory results Abnormal [facility] PT Coag (PPP) [Time] 15.3 s High [facility] aPTT Coag (PPP) [Time] 26 s Normal 26-[address] [facility] Comment on above: Order Comment: The A PTT is no longer used for monitoring Unfractionated Heparin Therapy. For monitoring Heparin Therapy, use the Heparin Assay. Performed By: #### 1 6362-6 #### ANA M Soler ([id number]) [facility] ([facility]) [address] [place] [address] 32468 INR Coag (PPP) [Relative time] 1.4 High 0.9-1.1 [facility] Comment on above: Order Comment: The A PTT is no longer used for monitoring Unfractionated Heparin Therapy. For monitoring Heparin Therapy, use the Heparin Assay. Performed By: #### 1 6362-6 #### ANA M Soler ([id number]) [facility] ([facility]) [address] [place] [address] 93674 PT Coag (PPP) [Time] 15.3 s High 9.8-12.4 [facility] Comment on above: Order Comment: The A PTT is no longer used for monitoring Unfractionated Heparin Therapy. For monitoring Heparin Therapy, use the Heparin Assay. Performed By: #### 1 6362-6 #### ANA M Soler ([id number]) [facility] ([facility]) [address] [place] [address] 51915 Phosphateon 12-11-2024 Phosphate [Mass/Vol] 2.1 mg/dL Low 2.5-4.9 [facility] Comment on above: Performed By: #### 1 6362-6 #### ANA M Soler ([id number]) [facility] ([facility]) [address] [place] [address] 28494 Phosphoruson 12-11-2024 Phosphate [Mass/Vol] 2.1 mg/dL Low 2.5 - 4 .9 mg/dL [facility] Vitamin B12on 12-11-2024 Cobalamin (Vitamin B12) [Mass/Vol] 859 pg/mL 211 - 911 pg/mL [facility] AFB Processedon 12-10-2024 Extra Tube Hold for add-ons. [facility] Albuminon 12-10-2024 Albumin (Body fld) [Mass/Vol] 1.0 g/dL Normal Not established [facility] Comment on above: Order Comment: The p erformance characteristics of this test have been validated on peritoneal/ascites,pleural, and pericardial fluid by the performing [facility] laboratory. This test has not been approved by the FDA; however, such approval is not necessary. Performed By: #### 1 968-7 #### ANA M Soler ([id number]) [facility] ([facility]) [address] [place] [address] 08563 Albumin, Body Fluidon 2024 Albumin (Body fld) [Mass/Vol] 1.0 g/dL Not established [facility] Amylaseon 12-10-2024 Amylase (Body fld) [Catalytic activity/Vol] 10 U/L Normal Not established. [facility] Comment on above: Order Comment: The p erformance characteristics of this test have been validated on peritoneal/ascites,pleural, pericardial, drain, and liver/pancreatic cyst fluid by the performing [facility] laboratory. This test has not been approved by the FDA; however, such approval is not necessary. Performed By: #### 1 968-7 #### ANA M Soler ([id number]) [facility] ([facility]) [address] [place] [address] Amylase, Body Fluidon 2024 Amylase (Body fld) [Catalytic activity/Vol] 10 U/L Not established. [facility] Bacteriaon 12-10-2024 Bacteria identified Cx Nom (Bld) Test: Blood Culture Specimen Source: Peripheral Venipuncture Specimen Type: Blood culture Specimen Date: 12/10/2024 1149 Result Date: 12/14/2024 140 Result Status: Final result Abnormal: No Resulting Lab: [facility] [address] [place] [address] CULTURE No growth at 4 days - FINAL REPORT [facility] Comment on above: Performed By: #### 1 9123-9 #### ANA M Soler ([id number]) [facility] ([facility]) [address] [place] [address] Bacteria identified Cx Nom (Bld) Test: Blood Culture Specimen Source: Peripheral Venipuncture Specimen Type: Blood culture Specimen Date: 12/10/2024 114 Result Date: 12/14/2024 140 Result Status: Final result Abnormal: No Resulting Lab: [facility] [address] [place] [address] CULTURE No growth at 4 days - FINAL REPORT [facility] Comment on above: Performed By: #### 1 9123-9 #### ANA M Soler ([id number]) [facility] ([facility]) [address] [place] [address] Bacteria identified Cx Nom (Body fld) Test: Sterile Fluid Culture/Smear Specimen Source: Ascites Fluid Specimen Type: Fluid Specimen Date: 12/10/202456 Result Date: 12/13/2024 0711 Result Status: Final result Resulting Lab: [facility] [address] [place] [address] CULTURE No growth aerobically and anaerobically STAIN (2+) Few Polymorphonuclear leukocytes No organisms seen [facility] Comment on above: Performed By: #### 1 6362-6 #### ANA M Soler ([id number]) [facility] ([facility]) [address] [place], [place] [id number] Basic metabolic 2000 panelon 12-10-2024 Anion gap [Moles/Vol] 13 mmol/L 10 - 2 0 mmol/L [facility] Calcium [Mass/Vol] 8.5 mg/dL Low 8.6 - 10. 6 mg/dL [facility] Chloride [Moles/Vol] 92 mmol/L Low 98 - 10 7 mmol/L [facility] CO2 [Moles/Vol] 30 mmol/L 21 - 32 mmol/L [facility] Creatinine [Mass/Vol] 0.64 mg/dL 0.50 - 1.30 mg/dL [facility] eGFR - PINF [facility] Glucose [Mass/Vol] 109 mg/dL High 74 - 99 mg/dL [facility] Interpretation and review of laboratory results Abnormal [facility] Potassium [Moles/Vol] 3.4 mmol/L Low 3.5 - 5.3 mmol/L [facility] Sodium [Moles/Vol] 132 mmol/L Low 136 - 145 mmol/L [facility] Urea nitrogen [Mass/Vol] 12 mg/dL 6 - 23 mg/dL [facility] Anion gap [Moles/Vol] 13 mmol/L Normal 10-20 [facility] Comment on above: Performed By: #### Sarah RUBL #### ANA M Soler ([id number]) [facility] ([facility]) [address] [place] [address] 21638 Calcium [Mass/Vol] 8.5 mg/dL Low 8.6-10.6 [facility] Comment on above: Performed By: #### Sarah RUBL #### ANA M Soler ([id number]) [facility] ([facility]) [id number] [place] [address] 04314 Chloride [Moles/Vol] 92 mmol/L Low 98-107 [facility] Comment on above: Performed By: #### Sarah RUBL #### ANA M Soler ([id number]) [facility] ([facility]) [address] [place] [address] 95171 CO2 [Moles/Vol] 30 mmol/L Normal 21-32 [facility] Comment on above: Performed By: #### D RUBL #### ANA M BROWNTZER L ([id number]) [facility] ([facility]) [address] [place] [address] Creatinine [Mass/Vol] 0.64 mg/dL Normal 0.50-1.30 [facility] Comment on above: Result Comment: CORNELIO VILLANUEVA ICTERUS DETECTED. The result may be falsely decreased due to icterus or other interferents. Clinical correlation is recommended. Repeat testing may be considered. Performed By: #### D RUBL #### ANA M BROWNTZER L ([id number]) [facility] ([facility]) [address] [place] [address] 14473 Glomerular filtration rate >90 Normal >60 [facility] Comment on above: Result Comment: Calc ulations of estimated GFR are performed using the 2020 CKD-EPI Study Refit equation without the race variable for the IDMS-Traceable creatinine methods. https://jasn.asnjournals.org/content/early/ASN.10879 04782 Performed By: #### D RUBL #### ANA M BROWNTZER L ([id number]) [facility] ([facility]) [address] [place] [address] 13130 Glucose [Mass/Vol] 109 mg/dL High 74-99 [facility] Comment on above: Performed By: #### D RUBL #### ANA M SCHULTZMOTZER L ([id number]) [facility] ([facility]) [address] [place] [address] 05480 Potassium [Moles/Vol] 3.4 mmol/L Low 3.5-5.3 [facility] Comment on above: Performed By: #### D RUBL #### ANA M SCHULTZMOTZER L ([id number]) [facility] ([facility]) [id number] [place] [address] 88882 Sodium [Moles/Vol] 132 mmol/L Low 136-145 [facility] Comment on above: Performed By: #### D RUBL #### ANA M SCHMOTZER L ([id number]) [facility] ([facility]) [address] [place] [address] Urea nitrogen [Mass/Vol] 12 mg/dL Normal 6-23 [facility] Comment on above: Performed By: #### D MANNYL #### ANA M Soler ([id number]) [facility] ([facility]) [id number] [place] [address] 39542 Bilirubinon 12-10-2024 Bilirubin (Body fld) [Mass/Vol] 6.3 mg/dL Normal Not established [facility] Comment on above: Order Comment: The p erformance characteristics of this test have been validated on peritoneal/ascites,pleural, pericardial and drain fluid by the [facility] laboratory. This test has not been approved by the FDA; however, such approval is not necessary. Performed By: #### 1 968-7 #### ANA M Soler ([id number]) [facility] ([facility]) [address] [place] [address] 44296 Bilirubin, Total, Body Fluid on 12-10-2024 Bilirubin (Body fld) [Mass/Vol] 6.3 mg/dL Not established [facility] CBC W Auto Differential pane l (Bld)on 12-10-2024 Basophils (Bld) [#/Vol] 0.06 10*3/uL [facility] Basophils/100 WBC (Bld) 0.3 % 0.0 - 2.0 % [facility] Eosinophils (Bld) [#/Vol] 0.00 10*3/uL [facility] Eosinophils/100 WBC (Bld) 0.0 % 0.0 - 6.0 % [facility] Erythrocyte distribution width (RBC) [Ratio] 18.3 % High 11.5 - 14.5 % [facility] Hematocrit (Bld) [Volume fraction] 39.6 % Low 41.0 - 52.0 % [facility] Hemoglobin (Bld) [Mass/Vol] 13.6 g/dL 13.5 - 17.5 g/dL [facility] Immature granulocytes (Bld) [#/Vol] 0.72 10*3/uL High [facility] Immature granulocytes/100 WBC (Bld) 3.1 % High 0.0 - 0.9 % [facility] Interpretation and review of laboratory results Abnormal [facility] Lymphocytes (Bld) [#/Vol] 1.38 10*3/uL [facility] Lymphocytes/100 WBC (Bld) 6.0 % 13.0 - 44.0 % [facility] MCH (RBC) [Entitic mass] 37.7 pg High 26.0 - 34.0 pg [facility] MCHC (RBC) [Mass/Vol] 34.3 g/dL 32.0 - 36.0 g/dL [facility] MCV (RBC) [Entitic vol] 110 fL High 80 - 100 fL [facility] Monocytes (Bld) [#/Vol] 2.94 10*3/uL High [facility] Monocytes/100 WBC (Bld) 12.8 % 2.0 - 10.0 % [facility] Neutrophils (Bld) [#/Vol] 17.78 10*3/uL High [facility] Neutrophils/100 WBC (Bld) 77.8 % 40.0 - 80.0 % [facility] Nucleated RBC/100 WBC (Bld) [Ratio] 0.0 % [facility] Platelets (Bld) [#/Vol] 244 10*3/uL [facility] RBC (Bld) [#/Vol] 3.61 10*6/uL Low [facility] WBC (Bld) [#/Vol] 22.9 10*3/uL High [facility] Basophils (Bld) [#/Vol] 0.06 x10*3/uL Normal 0.00-0.10 [facility] Comment on above: Performed By: #### D RUBL #### ANA M Soler ([id number]) [facility] ([facility]) [id number] [place] [address] 51184 Basophils/100 WBC (Bld) 0.3 % Normal 0.0-2.0 [facility] Comment on above: Performed By: #### D RUBL #### ANA M Soler ([id number]) [facility] ([facility]) [address] [place] [address] 76726 Eosinophils (Bld) [#/Vol] 0.00 x10*3/uL Normal 0.00-0.70 [facility] Comment on above: Performed By: #### D RUBL #### ANA M Soler ([id number]) [facility] ([facility]) [address] [place] [address] 63470 Eosinophils/100 WBC (Bld) 0.0 % Normal 0.0-6.0 [facility] Comment on above: Performed By: #### D RUBL #### ANA M Soler ([id number]) [facility] ([facility]) [address] [place] [address] 91527 Erythrocyte distribution width (RBC) [Ratio] 18.3 % High 11.5-14.5 [facility] Comment on above: Performed By: #### D RUBL #### ANA M Soler ([id number]) [facility] ([facility]) [address] [place] [address] 07396 Hematocrit (Bld) [Volume fraction] 39.6 % Low 41.0-52.0 [facility] Comment on above: Performed By: #### D RUBL #### ANA M Soler ([id number]) [facility] ([facility]) [address] [place] [address] 65962 Hemoglobin (Bld) [Mass/Vol] 13.6 g/dL Normal 13.5-17.5 [facility] Comment on above: Performed By: #### D RUBL #### ANA M Soler ([id number]) [facility] ([facility]) [address] [place] [address] 29710 Immature granulocytes (Bld) [#/Vol] 0.72 x10*3/uL High 0.00-0.70 [facility] Comment on above: Performed By: #### D RUBL #### ANA M Soler ([id number]) [facility] ([facility]) [address] [place] [address] 47673 Immature granulocytes/100 WBC (Bld) 3.1 % High 0.0-0.9 [facility] Comment on above: Result Comment: Johanna ture Granulocyte Count (IG) includes promyelocytes, myelocytes and metamyelocytes but does not include bands. Percent differential counts (%) should be interpreted in the context of the absolute cell counts (cells/UL). Performed By: #### D RUBL #### ANA M Soler ([id number]) [facility] ([facility]) [address] [place] [address] Lymphocytes (Bld) [#/Vol] 1.38 x10*3/uL Normal 1.20-4.80 [facility] Comment on above: Performed By: #### D RUBL #### ANA M Soler ([id number]) [facility] ([facility]) [address] [place] [address] 48399 Lymphocytes/100 WBC (Bld) 6.0 % Normal 13.0-44.0 [facility] Comment on above: Performed By: #### Sarah RUBL #### ANA M Soler ([id number]) [facility] ([facility]) [address] [place] [address] MCH (RBC) [Entitic mass] 37.7 pg High 26.0-34.0 [facility] Comment on above: Performed By: #### Sarah RUBL #### ANA M Soler ([id number]) [facility] ([facility]) [address] [place] [address] MCHC (RBC) [Mass/Vol] 34.3 g/dL Normal 32.0-36.0 [facility] Comment on above: Performed By: #### D RUBL #### ANA M Soler ([id number]) [facility] ([facility]) [address] [place] [address] MCV (RBC) [Entitic vol] 110 fL High 80-100 [facility] Comment on above: Performed By: #### D RUBL #### ANA M Soler ([id number]) [facility] ([facility]) [address] [place] [address] Monocytes (Bld) [#/Vol] 2.94 x10*3/uL High 0.10-1.00 [facility] Comment on above: Performed By: #### D RUBL #### ANA M Soler ([id number]) [facility] ([facility]) [address] [place] [address] 56041 Monocytes/100 WBC (Bld) 12.8 % Normal 2.0-10.0 [facility] Comment on above: Performed By: #### Sarah RUBL #### ANA M Soler ([id number]) [facility] ([facility]) [address] [place] [address] 29306 Neutrophils (Bld) [#/Vol] 17.78 x10*3/uL High 1.20-7.70 [facility] Comment on above: Result Comment: Perc ent differential counts (%) should be interpreted in the context of the absolute cell counts (cells/uL). Performed By: #### Sarah RUBL #### ANA M Soler ([id number]) [facility] ([facility]) [address] [place] [address] 37291 Neutrophils/100 WBC (Bld) 77.8 % Normal 40.0-80.0 [facility] Comment on above: Performed By: #### Sarah RUBL #### ANA M Soler ([id number]) [facility] ([facility]) [address] [place] [address] 43837 Nucleated RBC/100 WBC (Bld) [Ratio] 0.0 /100 WBCs Normal 0.0-0.0 [facility] Comment on above: Performed By: #### Sarah RUBL #### ANA M Soler ([id number]) [facility] ([facility]) [address] [place] [address] 53563 Platelets (Bld) [#/Vol] 244 x10*3/uL Normal 150-450 [facility] Comment on above: Performed By: #### D RUBL #### ANA M Soler ([id number]) [facility] ([facility]) [address] [place] [address] RBC (Bld) [#/Vol] 3.61 x10*6/uL Low 4.50-5.90 [facility] Comment on above: Performed By: #### Sarah RUBL #### ANA M Soler ([id number]) [facility] ([facility]) [address] [place] [address] WBC (Bld) [#/Vol] 22.9 x10*3/uL High 4.4-11.3 [facility] Comment on above: Performed By: #### Sarah RUBL #### ANA M Soler ([id number]) [facility] ([facility]) [address] [place] [address] Cell count panel (Body fld)o n 12-10-2024 Clarity (Body fld) Clear Clear [facility] Color (Body fld) Yellow Colorless, Straw, Yellow [facility] RBC Auto (Body fld) [#/Vol] 240 /uL see comment [facility] WBC (Body fld) [#/Vol] 0.022 10*3/uL See [facility] Clarity (Body fld) Clear Clear [facility] Color (Body fld) Yellow Colorless, Straw, Yellow [facility] RBC Auto (Body fld) [#/Vol] 252 /uL see comment [facility] WBC (Body fld) [#/Vol] 0.038 10*3/uL See [facility] Clarity (Body fld) Clear Normal Clear [facility] Comment on above: Order Comment: Body Fluid cell count reference ranges have not been established by [facility]. Reference ranges provided are based on published references. Performed By: #### 1 968-7 #### ANA M Soler ([id number]) [facility] ([facility]) [address] [place] [address] Performed By: #### 1 9123-9 #### ANA M Soler ([id number]) [facility] ([facility]) [address] [place] [address] Color (Body fld) Yellow Normal Colorless, Straw, Yellow [facility] Comment on above: Order Comment: Body Fluid cell count reference ranges have not been established by [facility]. Reference ranges provided are based on published references. Performed By: #### 1 968-7 #### ANA M Soler ([id number]) [facility] ([facility]) [address] [place] [address] Performed By: #### 1 9123-9 #### ANA M Soler ([id number]) [facility] ([facility]) [address] [place] [address] RBC Auto (Body fld) [#/Vol] 252 /uL Normal see comment [facility] Comment on above: Order Comment: Body Fluid cell count reference ranges have not been established by [facility]. Reference ranges provided are based on published references. Result Comment: Manu al hemacytometer count. BAL/Synovial/Peritoneal/Pericardial/Pleural Fluid Reference Range: <500 cells/uL Performed By: #### 1 968-7 #### ANA M Soler ([id number]) [facility] ([facility]) [address] [place] [address] RBC Auto (Body fld) [#/Vol] 240 /uL Normal see comment [facility] Comment on above: Order Comment: Body Fluid cell count reference ranges have not been established by [facility]. Reference ranges provided are based on published references. Result Comment: Manu al hemacytometer count. BAL/Synovial/Peritoneal/Pericardial/Pleural Fluid Reference Range: <500 cells/uL Performed By: #### 1 9123-9 #### ANA M Soler ([id number]) [facility] ([facility]) [address] [place], [place] [address] WBC (Body fld) [#/Vol] 0.038 10*3/uL Normal See Elvin mcduffie [facility] Comment on above: Order Comment: Body Fluid cell count reference ranges have not been established by [facility]. Reference ranges provided are based on published references. Result Comment: Manu al hemacytometer count. BAL/Synovial/Peritoneal/Pericardial/Pleural Fluid Reference Range: <500 cells/uL Performed By: #### 1 968-7 #### ANA M Soler ([id number]) [facility] ([facility]) [address] [place] [address] WBC (Body fld) [#/Vol] 0.022 10*3/uL Normal See Elvin t [facility] Comment on above: Order Comment: Body Fluid cell count reference ranges have not been established by [facility]. Reference ranges provided are based on published references. Result Comment: Manu al hemacytometer count. BAL/Synovial/Peritoneal/Pericardial/Pleural Fluid Reference Range: <500 cells/uL Performed By: #### 1 9123-9 #### ANA M Soler ([id number]) [facility] ([facility]) [address] [place] [address] 01362 Cholesterolon 12-10-2024 Cholesterol (Body fld) [Mass/Vol] <25 Normal Not established [facility] Comment on above: Order Comment: The p erformance characteristics of this test have been validated on peritoneal/ascites,pleural, and pericardial fluid by the performing [facility] laboratory. This test has not been approved by the FDA; however, such approval is not necessary. Performed By: #### 1 968-7 #### ANA M Soler ([id number]) [facility] ([facility]) [address] [place] [address] 69467 Cholesterol, Body Fluidon Cholesterol (Body fld) [Mass/Vol] mg/dL Not established mg/dL [facility] Differential panel (Body fld )on 12-10-2024 Cells Counted Total (Body fld) [#] 100 [facility] Eosinophils/100 WBC Manual cnt (Body fld) [facility] Lymphocytes/100 WBC Manual cnt (Body fld) 31 % see comment [facility] Monocytes+Macrophages/ 100 WBC Manual cnt (Body fld) 59 % see comment [facility] Neutrophils/100 WBC (Body fld) 10 % see comment [facility] Cells Counted Total (Body fld) [#] 100 Normal [facility] Comment on above: Order Comment: Body Fluid cell differential reference ranges have not been established by [facility]. Reference ranges provided are based on published references. Performed By: #### 1 9123-9 #### ANA M INMANER L ([id number]) [facility] ([facility]) [address] [place] [address] Eosinophils/100 WBC Manual cnt (Body fld) Normal [facility] Comment on above: Order Comment: Body Fluid cell differential reference ranges have not been established by [facility]. Reference ranges provided are based on published references. Result Comment: BAL Reference Range: <1% Performed By: #### 1 9123-9 #### ANA M BROWNTZER L ([id number]) [facility] ([facility]) [address] [place] [address] Lymphocytes/100 WBC Manual cnt (Body fld) 31 % Normal see comment [facility] Comment on above: Order Comment: Body Fluid cell differential reference ranges have not been established by [facility]. Reference ranges provided are based on published references. Result Comment: Syno vial/Peritoneal/Pericardial/Pleural Fluid Reference Range: <75% BAL Reference Range: <10% Performed By: #### 1 9123-9 #### ANA M BROWNTZER L ([id number]) [facility] ([facility]) [address] [place] [address] Monocytes+Macrophages/ 100 WBC Manual cnt (Body fld) 59 % Normal see comment [facility] Comment on above: Order Comment: Body Fluid cell differential reference ranges have not been established by [facility]. Reference ranges provided are based on published references. Result Comment: Syno vial/Peritoneal/Pericardial/Pleural Fluid Reference Range: <70% BAL Reference Range: 87-100% Performed By: #### 1 9123-9 #### ANA M SCHULTZMOTZER L ([id number]) [facility] ([facility]) [address] [place] [address] Neutrophils/100 WBC (Body fld) 10 % Normal see comment [facility] Comment on above: Order Comment: Body Fluid cell differential reference ranges have not been established by [facility]. Reference ranges provided are based on published references. Result Comment: Syno vial/Peritoneal/Pericardial/Pleural Fluid Reference Range: <25% BAL Reference Range: <2% Performed By: #### 1 9123-9 #### ANA M Soler ([id number]) [facility] ([facility]) [address] [place] [address] 98456 Glucoseon 12-10-2024 Glucose (Body fld) [Mass/Vol] 134 mg/dL Normal Not established [facility] Comment on above: Order Comment: The p erformance characteristics of this test have been validated on peritoneal/ascites, pleural, pericardial, drain, dialysate and liver/pancreatic cyst fluid by the [facility]. This test has not been approved by the FDA; however, such approval is not necessary. Performed By: #### 1 9123-9 #### ANA M Soler ([id number]) [facility] ([facility]) [address] [place] [address] 57551 Glucose Test strip manual (B ld) [Mass/Vol]on 12-10-2024 Glucose [Mass/Vol] 138 mg/dL High 74 - 99 mg/dL [facility] Interpretation and review of laboratory results Abnormal [facility] Glucose [Mass/Vol] 138 mg/dL High 74-99 [facility] Comment on above: Performed By: #### 1 6362-6 #### ANA M Soler ([id number]) [facility] ([facility]) [address] [place] [address] 46495 Glucose [Mass/Vol] 124 mg/dL High 74 - 99 mg/dL [facility] Interpretation and review of laboratory results Abnormal [facility] Glucose [Mass/Vol] 124 mg/dL High 74-99 [facility] Comment on above: Performed By: #### 1 6362-6 #### ANA M Soler ([id number]) [facility] ([facility]) [address] [place] [address] 53876 Glucose [Mass/Vol] 120 mg/dL High 74 - 99 mg/dL [facility] Interpretation and review of laboratory results Abnormal [facility] Glucose [Mass/Vol] 120 mg/dL High 74-99 [facility] Comment on above: Performed By: #### 1 9123-9 #### ANA M Soler ([id number]) [facility] ([facility]) [address] [place] [address] Glucose [Mass/Vol] 94 mg/dL 74 - 99 mg/dL [facility] Interpretation and review of laboratory results Normal [facility] Glucose [Mass/Vol] 94 mg/dL Normal 74-99 [facility] Comment on above: Performed By: #### 1 968-7 #### ANA M Soler ([id number]) [facility] ([facility]) [address] [place] [address] Glucose, Body Fluidon 2024 Glucose (Body fld) [Mass/Vol] 134 mg/dL Not established [facility] Guidance for paracentesis of Peritoneumon 12-10-2024 U[facility] MMODAL UH MMODAL [facility] Work Phone: [facility] Work Phone: Radiology Study observation (narrative) [facility] Work Phone: Hepatic function 2000 panelo n 12-10-2024 Albumin BCP dye [Mass/Vol] 3.1 g/dL Low 3.4 - 5.0 g/dL [facility] ALP [Catalytic activity/Vol] 165 U/L High 33 - 120 U/L [facility] ALT With P-5'-P [Catalytic activity/Vol] 67 U/L High 10 - 52 U/L [facility] AST With P-5'-P [Catalytic activity/Vol] 134 U/L High 9 - 39 U/L [facility] Bilirubin [Mass/Vol] 22.8 mg/dL High 0.0 - 1 .2 mg/dL [facility] Bilirubin.direct [Mass/Vol] 15.0 mg/dL High 0.0 - 0.3 mg/dL [facility] Interpretation and review of laboratory results Abnormal [facility] Protein [Mass/Vol] 5.5 g/dL Low 6.4 - 8.2 g/dL [facility] Albumin BCP dye [Mass/Vol] 3.1 g/dL Low 3.4-5.0 [facility] Comment on above: Performed By: #### 1 968-7 #### ANA M Soler ([id number]) [facility] ([facility]) [address] [place] [address] ALP [Catalytic activity/Vol] 165 U/L High 33-120 [facility] Comment on above: Result Comment: CORNELIO VILLANUEVA ICTERUS DETECTED. The result may be falsely elevated due to icterus or other interferents. Clinical correlation is recommended. Repeat testing may be considered. Performed By: #### 1 968-7 #### ANA M AVINA L ([id number]) [facility] ([facility]) [address] [place] [address] 02012 ALT With P-5'-P [Catalytic activity/Vol] 67 U/L High 10-52 [facility] Comment on above: Result Comment: Kala ents treated with Sulfasalazine may generate falsely decreased results for ALT. Performed By: #### 1 968-7 #### ANA M AVINA L ([id number]) [facility] ([facility]) [address] [place] [address] AST With P-5'-P [Catalytic activity/Vol] 134 U/L High 9-39 [facility] Comment on above: Performed By: #### 1 968-7 #### ANA M SCHULTZMOFLORECITAER L ([id number]) [facility] [facility] ([facility]) [address] [place] [address] Bilirubin [Mass/Vol] 22.8 mg/dL High 0.0-1.2 [facility] Comment on above: Performed By: #### 1 968-7 #### ANA M SCHULTZMOTZER L ([id number]) [facility] ([facility]) [address] [place] [address] Bilirubin.direct [Mass/Vol] 15.0 mg/dL High 0.0-0.3 [facility] Comment on above: Performed By: #### 1 968-7 #### ANA M SCHULTZMOTZER L ([id number]) [facility] ([facility]) [address] [place] [address] Protein [Mass/Vol] 5.5 g/dL Low 6.4-8.2 [facility] Comment on above: Performed By: #### 1 968-7 #### ANA M Soler ([id number]) [facility] ([facility]) [address] [place] [address] 93098 Lactate Dehydrogenase, Body Fluidon 12-10-2024 LDH Lactate to pyruvate reaction (Body fld) [Catalytic activity/Vol] 48 U/L Not established. [facility] Lactate dehydrogenaseon 11-15 LDH Lactate to pyruvate reaction (Body fld) [Catalytic activity/Vol] 48 U/L Normal Not established. [facility] Comment on above: Order Comment: The p erformance characteristics of this test have been validated on peritoneal/ascites,pleural, pericardial and drain fluid by the performing [facility] laboratory. This test has not been approved by the FDA; however, such approval is not necessary. Performed By: #### 1 9123-9 #### ANA M Soler ([id number]) [facility] ([facility]) [id number] [place] [address] Magnesiumon 12-10-2024 Magnesium [Mass/Vol] 2.59 mg/dL High 1.60 - 2.40 mg/dL [facility] Magnesium [Mass/Vol] 2.59 mg/dL High 1.60-2.40 [facility] Comment on above: Result Comment: CORNELIO ED ICTERUS DETECTED. The result may be falsely elevated due to icterus or other interferents. Clinical correlation is recommended. Repeat testing may be considered. Performed By: #### 1 968-7 #### ANA M Soler ([id number]) [facility] ([facility]) [address] [place] [address] 28285 Mycobacterium spon Mycobacterium sp identified Org specific cx Nom (Unsp spec) Test: AFB Culture/Smear Specimen Source: Ascites Fluid Specimen Type: Fluid Specimen Date: 12/10/2024 0856 Result Date: 12/24/2024 1213 Result Status: Preliminary result Resulting Lab: [facility] [address] [place], [place] [id number] CULTURE Culture in progress and will be examined weekly. A result will be issued either when positive or after 8 weeks incubation. STAIN No acid fast bacilli seen Normal [facility] Comment on above: Performed By: #### 1 6362-6 #### ANA M Soler ([id number]) [facility] ([facility]) [address] [place] [address] No Panel Informationon 12-10 [facility] Interpretation and review of laboratory results Abnormal [facility] PT and aPTT panel Coag (PPP) on 12-10-2024 aPTT Coag (PPP) [Time] 28 s Un [facility] Work Phone: INR Coag (PPP) [Relative time] 1.4 {INR} High 0.9 - 1.1 [facility] Work Phone: Interpretation and review of laboratory results Abnormal [facility] Work Phone: PT Coag (PPP) [Time] 15.5 s High [facility] Work Phone: [facility] Work Phone: [facility] Work Phone: aPTT Coag (PPP) [Time] 28 s Normal 26-36 [facility] Comment on above: Order Comment: The A PTT is no longer used for monitoring Unfractionated Heparin Therapy. For monitoring Heparin Therapy, use the Heparin Assay. Performed By: #### 1 968-7 #### ANA M Soler ([id number]) [facility] ([facility]) [address] [place] [address] INR Coag (PPP) [Relative time] 1.4 High 0.9-1.1 [facility] Comment on above: Order Comment: The A PTT is no longer used for monitoring Unfractionated Heparin Therapy. For monitoring Heparin Therapy, use the Heparin Assay. Performed By: #### 1 968-7 #### ANA M Soler ([id number]) [facility] ([facility]) [address] [place] [address]758 PT Coag (PPP) [Time] 15.5 s High 9.8-12.4 [facility] Comment on above: Order Comment: The A PTT is no longer used for monitoring Unfractionated Heparin Therapy. For monitoring Heparin Therapy, use the Heparin Assay. Performed By: #### 1 968-7 #### ANA M Soler ([id number]) [facility] ([facility]) [address] [place] [address]17 Phosphateon 12-10-2024 Phosphate [Mass/Vol] 2.0 mg/dL Low 2.5-4.9 [facility] Comment on above: Performed By: #### 1 968-7 #### ANA M Soler ([id number]) [facility] ([facility]) [address] [place] [address] 43665 Phosphoruson 12-10-2024 Phosphate [Mass/Vol] 2.0 mg/dL Low 2.5 - 4 .9 mg/dL [facility] Proteinon 12-10-2024 Protein (Body fld) [Mass/Vol] 1.5 g/dL Normal Not established [facility] Comment on above: Order Comment: The p erformance characteristics of this test have been validated on peritoneal/ascites,pleural, pericardial, drain, and liver/pancreatic cyst fluid by the [facility] laboratory. This test has not been approved by the FDA; however, such approval is not necessary. Performed By: #### 1 9123-9 #### ANA M Soler ([id number]) [facility] ([facility]) [address] [place] [address]328 Protein, Total, Body Fluidon 12-10-2024 Protein (Body fld) [Mass/Vol] 1.5 g/dL Not established [facility] Urea Nitrogen, Body Fluidon 12-10-2024 Urea nitrogen (Body fld) [Mass/Vol] 12 mg/dL Not established [facility] Urea nitrogenon 12-10-2024 Urea nitrogen (Body fld) [Mass/Vol] 12 mg/dL Normal Not established [facility] Comment on above: Order Comment: The p erformance characteristics of this test have been validated on peritoneal/ascites,pleural, pericardial, drain and dialysate fluid by the performing [facility] laboratory. This test has not been approved by the FDA; however, such approval is not necessary. Performed By: #### 1 9123-9 #### ANA M Soler ([id number]) [facility] ([facility]) [address] [place] [address] Anti-smooth muscle antibody, IgGOrdered By: Bert Mike on 12-09-2024 Smooth muscle Ab IF Ql (S) Positive Abnormal Negative [facility] Bacteria identified Cx Nom ( Bld)on 12-09-2024 Interpretation and review of laboratory results Normal [facility] Basic metabolic 2000 panelon 12-09-2024 Anion gap [Moles/Vol] 14 mmol/L 10 - 2 0 mmol/L [facility] Calcium [Mass/Vol] 8.5 mg/dL Low 8.6 - 10. 6 mg/dL [facility] Chloride [Moles/Vol] 90 mmol/L Low 98 - 10 7 mmol/L [facility] CO2 [Moles/Vol] 30 mmol/L 21 - 32 mmol/L [facility] Creatinine [Mass/Vol] 0.65 mg/dL 0.50 - 1.30 mg/dL [facility] eGFR - PINF [facility] Glucose [Mass/Vol] 101 mg/dL High 74 - 99 mg/dL [facility] Interpretation and review of laboratory results Abnormal [facility] Potassium [Moles/Vol] 3.4 mmol/L Low 3.5 - 5.3 mmol/L [facility] Sodium [Moles/Vol] 131 mmol/L Low 136 - 145 mmol/L [facility] Urea nitrogen [Mass/Vol] 10 mg/dL 6 - 23 mg/dL [facility] Anion gap [Moles/Vol] 14 mmol/L Normal 10-20 [facility] Comment on above: Performed By: #### D RUBL #### ANA M SCHULTZMOTZER L ([id number]) [facility] ([facility]) [address] [place] [address] Calcium [Mass/Vol] 8.5 mg/dL Low 8.6-10.6 [facility] Comment on above: Performed By: #### D RUBL #### ANA M SCHMOTZER L ([id number]) [facility] ([facility]) [address] [place] [address] Chloride [Moles/Vol] 90 mmol/L Low 98-107 [facility] Comment on above: Performed By: #### D RUBL #### ANA M SCHMOTZER L ([id number]) [facility] ([facility]) [address] [place] [address] CO2 [Moles/Vol] 30 mmol/L Normal 21-32 [facility] Comment on above: Performed By: #### D RUBL #### ANA M SCHULTZMOFLORECITAER L ([id number]) [facility] ([facility]) [address] [place] [address] Creatinine [Mass/Vol] 0.65 mg/dL Normal 0.50-1.30 [facility] Comment on above: Result Comment: CORNELIO VILLANUEVA ICTERUS DETECTED. The result may be falsely decreased due to icterus or other interferents. Clinical correlation is recommended. Repeat testing may be considered. Performed By: #### D RUBL #### ANA M SCHULTZMOTZER L ([id number]) [facility] ([facility]) [address] [place] [address] Glomerular filtration rate >90 Normal >60 [facility] Comment on above: Result Comment: Calc ulations of estimated GFR are performed using the 2020 CKD-EPI Study Refit equation without the race variable for the IDMS-Traceable creatinine methods. https://jasn.asnjournals.org/content//ASN.32723 94098 Performed By: #### D RUBL #### ANA M AVINA L ([id number]) [facility] ([facility]) [address] [place] [address] Glucose [Mass/Vol] 101 mg/dL High 74-99 [facility] Comment on above: Performed By: #### D RUBL #### ANA M INMANER L ([id number]) [facility] ([facility]) [address] [place] [address] 21451 Potassium [Moles/Vol] 3.4 mmol/L Low 3.5-5.3 [facility] Comment on above: Performed By: #### D RUBL #### ANA M INMANER L ([id number]) [facility] ([facility]) [address] [place] [address] 595[address] Sodium [Moles/Vol] 131 mmol/L Low 136-145 [facility] Comment on above: Performed By: #### D RUBL #### ANA M AVINA L ([id number]) [facility] ([facility]) [address] [place] [address] 75360 Urea nitrogen [Mass/Vol] 10 mg/dL Normal 6-23 [facility] Comment on above: Performed By: #### D RUBL #### ANA M AVINA L ([id number]) [facility] ([facility]) [address] [place] [address] 01111 CBC W Auto Differential pane l (Bld)on 12-09-2024 Basophils (Bld) [#/Vol] 0.04 10*3/uL [facility] Basophils/100 WBC (Bld) 0.2 % 0.0 - 2.0 % [facility] Eosinophils (Bld) [#/Vol] 0.01 10*3/uL [facility] Eosinophils/100 WBC (Bld) 0.1 % 0.0 - 6.0 % [facility] Erythrocyte distribution width (RBC) [Ratio] 18.3 % High 11.5 - 14.5 % [facility] Hematocrit (Bld) [Volume fraction] 38.7 % Low 41.0 - 52.0 % [facility] Hemoglobin (Bld) [Mass/Vol] 13.8 g/dL 13.5 - 17.5 g/dL [facility] Immature granulocytes (Bld) [#/Vol] 0.36 10*3/uL [facility] Immature granulocytes/100 WBC (Bld) 1.9 % High 0.0 - 0.9 % [facility] Interpretation and review of laboratory results Abnormal [facility] Lymphocytes (Bld) [#/Vol] 1.15 10*3/uL Low [facility] Lymphocytes/100 WBC (Bld) 5.9 % 13.0 - 44.0 % [facility] MCH (RBC) [Entitic mass] 38.7 pg High 26.0 - 34.0 pg [facility] MCHC (RBC) [Mass/Vol] 35.7 g/dL 32.0 - 36.0 g/dL [facility] MCV (RBC) [Entitic vol] 108 fL High 80 - 100 fL [facility] Monocytes (Bld) [#/Vol] 2.20 10*3/uL High [facility] Monocytes/100 WBC (Bld) 11.3 % 2.0 - 10.0 % [facility] Neutrophils (Bld) [#/Vol] 15.64 10*3/uL High [facility] Neutrophils/100 WBC (Bld) 80.6 % 40.0 - 80.0 % [facility] Nucleated RBC/100 WBC (Bld) [Ratio] 0.0 % [facility] Platelets (Bld) [#/Vol] 193 10*3/uL [facility] RBC (Bld) [#/Vol] 3.57 10*6/uL Low [facility] WBC (Bld) [#/Vol] 19.4 10*3/uL High [facility] Basophils (Bld) [#/Vol] 0.04 x10*3/uL Normal 0.00-0.10 [facility] Comment on above: Performed By: #### 5 902-2 #### ANA M Soler ([id number]) [facility] ([facility]) [address] [place] [address] Basophils/100 WBC (Bld) 0.2 % Normal 0.0-2.0 [facility] Comment on above: Performed By: #### 5 902-2 #### ANA M Soler ([id number]) [facility] ([facility]) [address] [place] [address] 45674 Eosinophils (Bld) [#/Vol] 0.01 x10*3/uL Normal 0.00-0.70 [facility] Comment on above: Performed By: #### 5 902-2 #### ANA M Soler ([id number]) [facility] ([facility]) [address] [place] [address] 24987 Eosinophils/100 WBC (Bld) 0.1 % Normal 0.0-6.0 [facility] Comment on above: Performed By: #### 5 902-2 #### ANA M Soler ([id number]) [facility] ([facility]) [address] [place] [address] 05379 Erythrocyte distribution width (RBC) [Ratio] 18.3 % High 11.5-14.5 [facility] Comment on above: Performed By: #### 5 902-2 #### ANA M Soler ([id number]) [facility] ([facility]) [address] [place] [address] 30741 Hematocrit (Bld) [Volume fraction] 38.7 % Low 41.0-52.0 [facility] Comment on above: Performed By: #### 5 902-2 #### ANA M Soler ([id number]) [facility] ([facility]) [address] [place] [address] 43225 Hemoglobin (Bld) [Mass/Vol] 13.8 g/dL Normal 13.5-17.5 [facility] Comment on above: Performed By: #### 5 902-2 #### ANA M Soler ([id number]) [facility] ([facility]) [address] [place] [address] 03755 Immature granulocytes (Bld) [#/Vol] 0.36 x10*3/uL Normal 0.00-0.70 [facility] Comment on above: Performed By: #### 5 902-2 #### ANA M Soler ([id number]) [facility] ([facility]) [address] [place] [address] 12132 Immature granulocytes/100 WBC (Bld) 1.9 % High 0.0-0.9 [facility] Comment on above: Result Comment: Johanna ture Granulocyte Count (IG) includes promyelocytes, myelocytes and metamyelocytes but does not include bands. Percent differential counts (%) should be interpreted in the context of the absolute cell counts (cells/UL). Performed By: #### 5 902-2 #### ANA M Soler ([id number]) [facility] ([facility]) [address] [place] [address] 82763 Lymphocytes (Bld) [#/Vol] 1.15 x10*3/uL Low 1.20-4.80 [facility] Comment on above: Performed By: #### 5 902-2 #### ANA M Soler ([id number]) [facility] ([facility]) [address] [place] [address] 13625 Lymphocytes/100 WBC (Bld) 5.9 % Normal 13.0-44.0 [facility] Comment on above: Performed By: #### 5 902-2 #### ANA M Soler ([id number]) [facility] ([facility]) [address] [place] [address] 59957 MCH (RBC) [Entitic mass] 38.7 pg High 26.0-34.0 [facility] Comment on above: Performed By: #### 5 902-2 #### ANA M AVINA L ([id number]) [facility] ([facility]) [address] [place] [address] 26648 MCHC (RBC) [Mass/Vol] 35.7 g/dL Normal 32.0-36.0 [facility] Comment on above: Performed By: #### 5 902-2 #### ANA M Soler ([id number]) [facility] ([facility]) [address] [place] [address] MCV (RBC) [Entitic vol] 108 fL High 80-100 [facility] Comment on above: Performed By: #### 5 902-2 #### ANA M Soler ([id number]) [facility] ([facility]) [address] [place] [address] Monocytes (Bld) [#/Vol] 2.20 x10*3/uL High 0.10-1.00 [facility] Comment on above: Performed By: #### 5 902-2 #### ANA M Soler ([id number]) [facility] ([facility]) [address] [place] [address] Monocytes/100 WBC (Bld) 11.3 % Normal 2.0-10.0 [facility] Comment on above: Performed By: #### 5 902-2 #### ANA M Soler ([id number]) [facility] ([facility]) [address] [place] [address] 89875 Neutrophils (Bld) [#/Vol] 15.64 x10*3/uL High 1.20-7.70 [facility] Comment on above: Result Comment: Perc ent differential counts (%) should be interpreted in the context of the absolute cell counts (cells/uL). Performed By: #### 5 902-2 #### ANA M Soler ([id number]) [facility] ([facility]) [address] [place] [address] Neutrophils/100 WBC (Bld) 80.6 % Normal 40.0-80.0 [facility] Comment on above: Performed By: #### 5 902-2 #### ANA M Soler ([id number]) [facility] ([facility]) [address] [place] [address] Nucleated RBC/100 WBC (Bld) [Ratio] 0.0 /100 WBCs Normal 0.0-0.0 [facility] Comment on above: Performed By: #### 5 902-2 #### ANA M Soler ([id number]) [facility] ([facility]) [address] [place] [address] Platelets (Bld) [#/Vol] 193 x10*3/uL Normal 150-450 [facility] Comment on above: Performed By: #### 5 902-2 #### ANA M Soler ([id number]) [facility] ([facility]) [address] [place] [address] 65897 RBC (Bld) [#/Vol] 3.57 x10*6/uL Low 4.50-5.90 [facility] Comment on above: Performed By: #### 5 902-2 #### ANA M Soler ([id number]) [facility] ([facility]) [address] [place] [address] 79490 WBC (Bld) [#/Vol] 19.4 x10*3/uL High 4.4-11.3 [facility] Comment on above: Performed By: #### 5 902-2 #### ANA M Soler ([id number]) [facility] ([facility]) [address] [place] [address] 34700 Glucose Test strip manual (B ld) [Mass/Vol]on 12-09-2024 Glucose [Mass/Vol] 101 mg/dL High 74 - 99 mg/dL [facility] Interpretation and review of laboratory results Abnormal [facility] Glucose [Mass/Vol] 101 mg/dL High 74-99 [facility] Comment on above: Performed By: #### 5 902-2 #### ANA M Soler ([id number]) [facility] ([facility]) [address] [place] [address] 07962 Hepatic function 2000 panelo n 12-09-2024 Albumin BCP dye [Mass/Vol] 3.2 g/dL Low 3.4 - 5.0 g/dL [facility] ALP [Catalytic activity/Vol] 163 U/L High 33 - 120 U/L [facility] ALT With P-5'-P [Catalytic activity/Vol] 60 U/L High 10 - 52 U/L [facility] AST With P-5'-P [Catalytic activity/Vol] 138 U/L High 9 - 39 U/L [facility] Bilirubin [Mass/Vol] 23.1 mg/dL High 0.0 - 1 .2 mg/dL [facility] Bilirubin.direct [Mass/Vol] 15.9 mg/dL High 0.0 - 0.3 mg/dL [facility] Interpretation and review of laboratory results Abnormal [facility] Protein [Mass/Vol] 5.7 g/dL Low 6.4 - 8.2 g/dL [facility] Albumin BCP dye [Mass/Vol] 3.2 g/dL Low 3.4-5.0 [facility] Comment on above: Performed By: #### D RUBL #### ANA M Soler ([id number]) [facility] ([facility]) [address] [place] [address]677 ALP [Catalytic activity/Vol] 163 U/L High 33-120 [facility] Comment on above: Result Comment: CORNELIO VILLANUEVA ICTERUS DETECTED. The result may be falsely elevated due to icterus or other interferents. Clinical correlation is recommended. Repeat testing may be considered. Performed By: #### D RUBL #### ANA M Soler ([id number]) [facility] ([facility]) [address] [place] [address] 30933 ALT With P-5'-P [Catalytic activity/Vol] 60 U/L High 10-52 [facility] Comment on above: Result Comment: Kala ents treated with Sulfasalazine may generate falsely decreased results for ALT. Performed By: #### D RUBL #### ANA M Soler ([id number]) [facility] ([facility]) [address] [place] [address] AST With P-5'-P [Catalytic activity/Vol] 138 U/L High 9-39 [facility] Comment on above: Performed By: #### D RUBL #### ANA M Soler ([id number]) [facility] ([facility]) [address] [place] [address] Bilirubin [Mass/Vol] 23.1 mg/dL High 0.0-1.2 [facility] Comment on above: Performed By: #### D RUBL #### ANA M Soler ([id number]) [facility] ([facility]) [address] [place] [address] Bilirubin.direct [Mass/Vol] 15.9 mg/dL High 0.0-0.3 [facility] Comment on above: Performed By: #### D RUBL #### ANA M Soler ([id number]) [facility] ([facility]) [address] [place] [address] Protein [Mass/Vol] 5.7 g/dL Low 6.4-8.2 [facility] Comment on above: Performed By: #### D RUBL #### ANA M Soler ([id number]) [facility] ([facility]) [address] [place] [address] Laboratory - Microbiology an d Antimicrobial susceptibilityon 12-09-2024 Bacteria identified Cx Nom (Bld) No growth at 4 days - FINAL REPORT [facility] Magnesiumon 12-09-2024 Magnesium [Mass/Vol] 2.60 mg/dL High 1.60 - 2.40 mg/dL [facility] Magnesium [Mass/Vol] 2.60 mg/dL High 1.60-2.40 [facility] Comment on above: Result Comment: CORNELIO RICH ICTERUS DETECTED. The result may be falsely elevated due to icterus or other interferents. Clinical correlation is recommended. Repeat testing may be considered. Performed By: #### D RUBL #### ANA M Soler ([id number]) [facility] ([facility]) [address] [place], [place] [id number] No Panel Informationon 12-09 Interpretation and review of laboratory results Abnormal [facility] PT and aPTT panel Coag (PPP) on 12-09-2024 aPTT Coag (PPP) [Time] 30 s Un [facility] Work Phone: INR Coag (PPP) [Relative time] 1.9 {INR} High 0.9 - 1.1 [facility] Work Phone: Interpretation and review of laboratory results Abnormal [facility] Work Phone: PT Coag (PPP) [Time] 20.7 s High [facility] Work Phone: [facility] Work Phone: [facility] Work Phone: aPTT Coag (PPP) [Time] 30 s Normal 26-36 [facility] Comment on above: Order Comment: The A PTT is no longer used for monitoring Unfractionated Heparin Therapy. For monitoring Heparin Therapy, use the Heparin Assay. Performed By: #### D RUBL #### ANA M Soler ([id number]) [facility] ([facility]) [address] [place] [address] 35404 INR Coag (PPP) [Relative time] 1.9 High 0.9-1.1 [facility] Comment on above: Order Comment: The A PTT is no longer used for monitoring Unfractionated Heparin Therapy. For monitoring Heparin Therapy, use the Heparin Assay. Performed By: #### D RUBL #### ANA M Soler ([id number]) [facility] ([facility]) [address] [place] [address] 83839 PT Coag (PPP) [Time] 20.7 s High 9.8-12.4 [facility] Comment on above: Order Comment: The A PTT is no longer used for monitoring Unfractionated Heparin Therapy. For monitoring Heparin Therapy, use the Heparin Assay. Performed By: #### D RUBL #### ANA M Soler ([id number]) [facility] ([facility]) [address] [place] [address] 02880 Phosphateon 12-09-2024 Phosphate [Mass/Vol] 1.9 mg/dL Low 2.5-4.9 [facility] Comment on above: Performed By: #### D RUBL #### ANA M Soler ([id number]) [facility] ([facility]) [address] [place] [address] 83186 Phosphoruson 12-09-2024 Phosphate [Mass/Vol] 1.9 mg/dL Low 2.5 - 4 .9 mg/dL [facility] Smooth muscle Ab IF Ql (S)Or dered By: Bert Mike on 12-09-2024 Interpretation and review of laboratory results Abnormal [facility] Study Interpretation of outs nilesh studyon 12-09-2024 IMAGING IMAGING CHERYL with Reflex to ENAOrdere d By: Gabriele Barbosa on 12-08-2024 Nuclear Ab Hep2 substrate Ql (S) Negative Negative [facility] Antimitochondrial antibodyon 12-08-2024 Mitochondria Ab IF Ql (S) Negative Negative [facility] Work Phone: Basic metabolic 2000 panelon 12-08-2024 Anion gap [Moles/Vol] 16 mmol/L 10 - 2 0 mmol/L [facility] Calcium [Mass/Vol] 8.5 mg/dL Low 8.6 - 10. 6 mg/dL [facility] Chloride [Moles/Vol] 93 mmol/L Low 98 - 10 7 mmol/L [facility] CO2 [Moles/Vol] 27 mmol/L 21 - 32 mmol/L [facility] Creatinine [Mass/Vol] 0.70 mg/dL 0.50 - 1.30 mg/dL [facility] eGFR - PINF [facility] Glucose [Mass/Vol] 88 mg/dL 74 - 99 mg/dL [facility] Interpretation and review of laboratory results Abnormal [facility] Potassium [Moles/Vol] 4.1 mmol/L 3.5 - 5.3 mmol/L [facility] Sodium [Moles/Vol] 132 mmol/L Low 136 - 145 mmol/L [facility] Urea nitrogen [Mass/Vol] 7 mg/dL 6 - 23 mg/dL [facility] Anion gap [Moles/Vol] 16 mmol/L Normal 10-20 [facility] Comment on above: Performed By: #### 1 4979-9 #### ANA M Soler ([id number]) [facility] ([facility]) [address] [place] [address] Calcium [Mass/Vol] 8.5 mg/dL Low 8.6-10.6 [facility] Comment on above: Performed By: #### 1 4979-9 #### ANA M AVINA L ([id number]) [facility] ([facility]) [address] [place] [address] Chloride [Moles/Vol] 93 mmol/L Low 98-107 [facility] Comment on above: Performed By: #### 1 4979-9 #### ANA M AVINA L ([id number]) [facility] ([facility]) [address] [place] [address] CO2 [Moles/Vol] 27 mmol/L Normal 21-32 [facility] Comment on above: Performed By: #### 1 4979-9 #### ANA M AVINA L ([id number]) [facility] ([facility]) [address] [place] [address] Creatinine [Mass/Vol] 0.70 mg/dL Normal 0.50-1.30 [facility] Comment on above: Performed By: #### 1 4979-9 #### ANA M AVINA L ([id number]) [facility] ([facility]) [address] [place] [address]8780 Glomerular filtration rate >90 Normal >60 [facility] Comment on above: Result Comment: Calc ulations of estimated GFR are performed using the 2020 CKD-EPI Study Refit equation without the race variable for the IDMS-Traceable creatinine methods. https://jasn.asnjournals.org/content/early//ASN.16650 84745 Performed By: #### 1 4979-9 #### ANA M BROWNTZKRYSTAL L ([id number]) [facility] ([facility]) [address] [place] [address] Glucose [Mass/Vol] 88 mg/dL Normal 74-99 [facility] Comment on above: Performed By: #### 1 4979-9 #### ANA M AVINA L ([id number]) [facility] ([facility]) [address] [place] [address] Potassium [Moles/Vol] 4.1 mmol/L Normal 3.5-5.3 [facility] Comment on above: Performed By: #### 1 4979-9 #### ANA M INMANER L ([id number]) [facility] ([facility]) [address] [place] [address] Sodium [Moles/Vol] 132 mmol/L Low 136-145 [facility] Comment on above: Performed By: #### 1 4979-9 #### ANA M SCHULTZMOTZER L ([id number]) [facility] ([facility]) [address] [place] [address] 82914 Urea nitrogen [Mass/Vol] 7 mg/dL Normal 6-23 [facility] Comment on above: Performed By: #### 1 4979-9 #### ANA M INMANER L ([id number]) [facility] ([facility]) [address] [place] [address] 79[address] CBC W Auto Differential pane l (Bld)on 12-08-2024 Basophils (Bld) [#/Vol] 0.04 10*3/uL [facility] Basophils/100 WBC (Bld) 0.3 % 0.0 - 2.0 % [facility] Eosinophils (Bld) [#/Vol] 0.15 10*3/uL [facility] Eosinophils/100 WBC (Bld) 1.2 % 0.0 - 6.0 % [facility] Erythrocyte distribution width (RBC) [Ratio] 18.0 % High 11.5 - 14.5 % [facility] Hematocrit (Bld) [Volume fraction] 32.6 % Low 41.0 - 52.0 % [facility] Hemoglobin (Bld) [Mass/Vol] 11.6 g/dL Low 13.5 - 17.5 g/dL [facility] Immature granulocytes (Bld) [#/Vol] 0.12 10*3/uL [facility] Immature granulocytes/100 WBC (Bld) 1.0 % High 0.0 - 0.9 % [facility] Interpretation and review of laboratory results Abnormal [facility] Lymphocytes (Bld) [#/Vol] 1.08 10*3/uL Low [facility] Lymphocytes/100 WBC (Bld) 8.6 % 13.0 - 44.0 % [facility] MCH (RBC) [Entitic mass] 38.8 pg High 26.0 - 34.0 pg [facility] MCHC (RBC) [Mass/Vol] 35.6 g/dL 32.0 - 36.0 g/dL [facility] MCV (RBC) [Entitic vol] 109 fL High 80 - 100 fL [facility] Monocytes (Bld) [#/Vol] 1.62 10*3/uL High [facility] Monocytes/100 WBC (Bld) 12.9 % 2.0 - 10.0 % [facility] Neutrophils (Bld) [#/Vol] 9.57 10*3/uL High [facility] Neutrophils/100 WBC (Bld) 76.0 % 40.0 - 80.0 % [facility] Nucleated RBC/100 WBC (Bld) [Ratio] 0.0 % [facility] Platelets (Bld) [#/Vol] 129 10*3/uL Low [facility] RBC (Bld) [#/Vol] 2.99 10*6/uL Low [facility] WBC (Bld) [#/Vol] 12.6 10*3/uL High [facility] Basophils (Bld) [#/Vol] 0.04 x10*3/uL Normal 0.00-0.10 [facility] Comment on above: Performed By: #### 5 902-2 #### ANA M Soler ([id number]) [facility] ([facility]) [address] [place] [address] Basophils/100 WBC (Bld) 0.3 % Normal 0.0-2.0 [facility] Comment on above: Performed By: #### 5 902-2 #### ANA M Soler ([id number]) [facility] ([facility]) [address] [place] [address] Eosinophils (Bld) [#/Vol] 0.15 x10*3/uL Normal 0.00-0.70 [facility] Comment on above: Performed By: #### 5 902-2 #### ANA M Soler ([id number]) [facility] ([facility]) [address] [place] [address] 04263 Eosinophils/100 WBC (Bld) 1.2 % Normal 0.0-6.0 [facility] Comment on above: Performed By: #### 5 902-2 #### ANA M Soler ([id number]) [facility] ([facility]) [address] [place] [address] 88437 Erythrocyte distribution width (RBC) [Ratio] 18.0 % High 11.5-14.5 [facility] Comment on above: Performed By: #### 5 902-2 #### ANA M Soler ([id number]) [facility] ([facility]) [address] [place] [address] Hematocrit (Bld) [Volume fraction] 32.6 % Low 41.0-52.0 [facility] Comment on above: Performed By: #### 5 902-2 #### ANA M Soler ([id number]) [facility] ([facility]) [address] [place] [address]686 Hemoglobin (Bld) [Mass/Vol] 11.6 g/dL Low 13.5-17.5 [facility] Comment on above: Performed By: #### 5 902-2 #### ANA M AVINA L ([id number]) [facility] ([facility]) [address] [place] [address] 88919 Immature granulocytes (Bld) [#/Vol] 0.12 x10*3/uL Normal 0.00-0.70 [facility] Comment on above: Performed By: #### 5 902-2 #### ANA M Soler ([id number]) [facility] ([facility]) [address] [place] [address] 18879 Immature granulocytes/100 WBC (Bld) 1.0 % High 0.0-0.9 [facility] Comment on above: Result Comment: Johanna ture Granulocyte Count (IG) includes promyelocytes, myelocytes and metamyelocytes but does not include bands. Percent differential counts (%) should be interpreted in the context of the absolute cell counts (cells/UL). Performed By: #### 5 902-2 #### ANA M Soler ([id number]) [facility] ([facility]) [address] [place] [address] 08531 Lymphocytes (Bld) [#/Vol] 1.08 x10*3/uL Low 1.20-4.80 [facility] Comment on above: Performed By: #### 5 902-2 #### ANA M Soler ([id number]) [facility] ([facility]) [address] [place] [address] 75119 Lymphocytes/100 WBC (Bld) 8.6 % Normal 13.0-44.0 [facility] Comment on above: Performed By: #### 5 902-2 #### ANA M Soler ([id number]) [facility] ([facility]) [address] [place] [address] 87680 MCH (RBC) [Entitic mass] 38.8 pg High 26.0-34.0 [facility] Comment on above: Performed By: #### 5 902-2 #### ANA M Soler ([id number]) [facility] ([facility]) [address] [place] [address] 67166 MCHC (RBC) [Mass/Vol] 35.6 g/dL Normal 32.0-36.0 [facility] Comment on above: Performed By: #### 5 902-2 #### ANA M Soler ([id number]) [facility] ([facility]) [address] [place] [address] 57540 MCV (RBC) [Entitic vol] 109 fL High 80-100 [facility] Comment on above: Performed By: #### 5 902-2 #### ANA M Soler ([id number]) [facility] ([facility]) [address] [place] [address] Monocytes (Bld) [#/Vol] 1.62 x10*3/uL High 0.10-1.00 [facility] Comment on above: Performed By: #### 5 902-2 #### ANA M BROWNTZER L ([id number]) [facility] ([facility]) [address] [place] [address] Monocytes/100 WBC (Bld) 12.9 % Normal 2.0-10.0 [facility] Comment on above: Performed By: #### 5 902-2 #### ANA M INMANER L ([id number]) [facility] ([facility]) [address] [place] [address] 09323 Neutrophils (Bld) [#/Vol] 9.57 x10*3/uL High 1.20-7.70 [facility] Comment on above: Result Comment: Perc ent differential counts (%) should be interpreted in the context of the absolute cell counts (cells/uL). Performed By: #### 5 902-2 #### ANA M INMANER L ([id number]) [facility] ([facility]) [address] [place] [address] 59245 Neutrophils/100 WBC (Bld) 76.0 % Normal 40.0-80.0 [facility] Comment on above: Performed By: #### 5 902-2 #### ANA M SCHULTZMOFLORECITAER L ([id number]) [facility] ([facility]) [address] [place] [address] Nucleated RBC/100 WBC (Bld) [Ratio] 0.0 /100 WBCs Normal 0.0-0.0 [facility] Comment on above: Performed By: #### 5 902-2 #### ANA M BROWNTZER L ([id number]) [facility] ([facility]) [address] [place] [address] 78426 Platelets (Bld) [#/Vol] 129 x10*3/uL Low 150-450 [facility] Comment on above: Performed By: #### 5 902-2 #### ANA M SCHULTZMOANA L ([id number]) [facility] ([facility]) [address] [place] [address] 54454 RBC (Bld) [#/Vol] 2.99 x10*6/uL Low 4.50-5.90 [facility] Comment on above: Performed By: #### 5 902-2 #### ANA M Soler ([id number]) [facility] ([facility]) [address] [place] [address] 25128 WBC (Bld) [#/Vol] 12.6 x10*3/uL High 4.4-11.3 [facility] Comment on above: Performed By: #### 5 902-2 #### ANA M Soler ([id number]) [facility] ([facility]) [address] [place] [address] 57706 Extra Urine [place]wood TubeOrdered By: Kishore Alvarez on 12-08-2024 [facility] Work Phone: Glucose Test strip manual (B ld) [Mass/Vol]on 12-08-2024 Glucose [Mass/Vol] 145 mg/dL High 74 - 99 mg/dL [facility] Interpretation and review of laboratory results Abnormal [facility] Glucose [Mass/Vol] 145 mg/dL High 74-99 [facility] Comment on above: Performed By: #### 5 902-2 #### ANA M Soler ([id number]) [facility] ([facility]) [address] [place] [address] 41917 Glucose [Mass/Vol] 131 mg/dL High 74 - 99 mg/dL [facility] Interpretation and review of laboratory results Abnormal [facility] Glucose [Mass/Vol] 131 mg/dL High 74-99 [facility] Comment on above: Performed By: #### 5 902-2 #### ANA M Soler ([id number]) [facility] ([facility]) [address] [place] [address] 81415 Hepatic function 2000 panelo n 12-08-2024 Albumin BCP dye [Mass/Vol] 3.1 g/dL Low 3.4 - 5.0 g/dL [facility] ALP [Catalytic activity/Vol] 359 U/L High 33 - 120 U/L [facility] ALT With P-5'-P [Catalytic activity/Vol] 50 U/L 10 - 52 U/L [facility] AST With P-5'-P [Catalytic activity/Vol] 130 U/L High 9 - 39 U/L [facility] Bilirubin [Mass/Vol] 21.0 mg/dL High 0.0 - 1 .2 mg/dL [facility] Bilirubin.direct [Mass/Vol] 14.4 mg/dL High 0.0 - 0.3 mg/dL [facility] Interpretation and review of laboratory results Abnormal [facility] Protein [Mass/Vol] 5.7 g/dL Low 6.4 - 8.2 g/dL [facility] Albumin BCP dye [Mass/Vol] 3.1 g/dL Low 3.4-5.0 [facility] Comment on above: Performed By: #### 5 902-2 #### ANA M Soler ([id number]) [facility] ([facility]) [address] [place] [address] 01631 ALP [Catalytic activity/Vol] 359 U/L High 33-120 [facility] Comment on above: Performed By: #### 5 902-2 #### ANA M Soler ([id number]) [facility] ([facility]) [address] [place] [address] 74328 ALT With P-5'-P [Catalytic activity/Vol] 50 U/L Normal 10-52 [facility] Comment on above: Result Comment: Kala ents treated with Sulfasalazine may generate falsely decreased results for ALT. Performed By: #### 5 902-2 #### ANA M Soler ([id number]) [facility] ([facility]) [address] [place] [address] 65115 AST With P-5'-P [Catalytic activity/Vol] 130 U/L High 9-39 [facility] Comment on above: Performed By: #### 5 902-2 #### ANA M Soler ([id number]) [facility] ([facility]) [address] [place] [address] 30524 Bilirubin [Mass/Vol] 21.0 mg/dL High 0.0-1.2 [facility] Comment on above: Performed By: #### 5 902-2 #### ANA M Soler ([id number]) [facility] ([facility]) [address] [place] [address] 31596 Bilirubin.direct [Mass/Vol] 14.4 mg/dL High 0.0-0.3 [facility] Comment on above: Performed By: #### 5 902-2 #### ANA M Soler ([id number]) [facility] ([facility]) [address] [place] [address] 89828 Protein [Mass/Vol] 5.7 g/dL Low 6.4-8.2 [facility] Comment on above: Performed By: #### 5 902-2 #### ANA M Soler ([id number]) [facility] ([facility]) [address] [place] [address] 21715 Magnesiumon 12-08-2024 Magnesium [Mass/Vol] 2.44 mg/dL High 1.60 - 2.40 mg/dL [facility] Magnesium [Mass/Vol] 2.44 mg/dL High 1.60-2.40 [facility] Comment on above: Performed By: #### 5 902-2 #### ANA M Soler ([id number]) [facility] ([facility]) [address] [place] [address] 13734 Magnesium [Mass/Vol]on 12-08 Interpretation and review of laboratory results Abnormal [facility] Mitochondria Ab IF Ql (S)on 12-08-2024 Interpretation and review of laboratory results Normal [facility] Work Phone: [facility] Work Phone: Nuclear Ab Hep2 substrate Ql (S)Ordered By: Gabriele Barbosa on 12-08-2024 Interpretation and review of laboratory results Normal [facility] PT and aPTT panel Coag (PPP) Ordered By: Beni Healy on 12-08-2024 aPTT Coag (PPP) [Time] 31 s [facility] INR Coag (PPP) [Relative time] 1.7 {INR} High 0.9 - 1.1 [facility] Interpretation and review of laboratory results Abnormal [facility] PT Coag (PPP) [Time] 19.3 s High [facility] PT and aPTT panel Coag (PPP) on 12-08-2024 aPTT Coag (PPP) [Time] 31 s Normal 26-36 [facility] Comment on above: Order Comment: The A PTT is no longer used for monitoring Unfractionated Heparin Therapy. For monitoring Heparin Therapy, use the Heparin Assay. Performed By: #### 1 4979-9 #### ANA M Soler ([id number]) [facility] ([facility]) [address] [place] [address] 10234 INR Coag (PPP) [Relative time] 1.7 High 0.9-1.1 [facility] Comment on above: Order Comment: The A PTT is no longer used for monitoring Unfractionated Heparin Therapy. For monitoring Heparin Therapy, use the Heparin Assay. Performed By: #### 1 4979-9 #### ANA M Soler ([id number]) [facility] ([facility]) [address] [place] [address] 54690 PT Coag (PPP) [Time] 19.3 s High 9.8-12.4 [facility] Comment on above: Order Comment: The A PTT is no longer used for monitoring Unfractionated Heparin Therapy. For monitoring Heparin Therapy, use the Heparin Assay. Performed By: #### 1 4979-9 #### ANA M Soler ([id number]) [facility] ([facility]) [address] [place] [address] 69542 Phosphateon 12-08-2024 Phosphate [Mass/Vol] 2.3 mg/dL Low 2.5-4.9 [facility] Comment on above: Performed By: #### 5 902-2 #### ANA M BROWNANA Soler ([id number]) [facility] ([facility]) [address] [place] [address] Phosphate [Mass/Vol]on 12-08 Interpretation and review of laboratory results Abnormal [facility] Phosphoruson 12-08-2024 Phosphate [Mass/Vol] 2.3 mg/dL Low 2.5 - 4 .9 mg/dL [facility] US GUIDED ABDOMINAL PARACENT ESISon 12-08-2024 US GUIDED ABDOMINAL PARACENTESIS Interpreted By: Dominguez Palacios, STUDY: US GUIDED ABDOMINAL PARACENTESIS; 54:45 pm INDICATION: Signs/Symptoms:Paracentes is. COMPARISON: None. ACCESSION NUMBER(S): [id number] ORDERING CLINICIAN: BRIANNA SINGH TECHNIQUE: INTERVENTIONALIST(S): Dominguez Palacios CONSENT: The patient/patient's POA/next of kin was informed of the nature of the proposed procedure. The purposes, alternatives, risks, and benefits were explained and discussed. All questions were answered and consent was obtained. SEDATION: None MEDICATION/CONTRAST: TIME OUT: A time out was performed immediately prior to procedure start with the interventional team, correctly identifying the patient name, date of , MRN, procedure, anatomy (including marking of site and side), patient position, procedure consent form, relevant laboratory and imaging test results, antibiotic administration, safety precautions, and procedure-specific equipment needs. FINDINGS: The patient was placed in the supine position. The abdominal space was examined with paz scale ultrasound, and the most accessible fluid identified and marked for paracentesis. The skin was prepped and draped in usual manner. Local anesthesia with Lidocaine was administered and a right-sided paracentesis was performed. A 5 [place] One-Step paracentesis needle/catheter was then placed where marked. Approximately 3700 mL of yellowish colored fluid was removed. The needle/catheter was then withdrawn. The patient tolerated the procedure well and there were no immediate complications. Specimen(s) sent to the laboratory and pathology for further evaluation, per the requesting team. IMPRESSION: Uneventful paracentesis, as detailed above. Right Hemiabdomen, 3700 mL I personally performed and/or directly supervised this study and was present for the entire procedure. Performed and dictated at [facility]. Signed by: Dominguez Palacios 12/10/2024 4:46 PM Dictation workstation: [id number] Normal [facility] Anti-neutrophilic cytoplasmi c antibodyon 12-07-2024 Neutrophil cytoplasmic Ab pattern IF (S) [Interp] Not detected None Detected [facility] Neutrophil cytoplasmic IgG IF (S) [Titer] <1:20 [facility] Basic metabolic 2000 panelon 12-07-2024 Anion gap [Moles/Vol] 12 mmol/L 10 - 2 0 mmol/L [facility] Calcium [Mass/Vol] 8.7 mg/dL 8.6 - 10. 6 mg/dL [facility] Chloride [Moles/Vol] 92 mmol/L Low 98 - 10 7 mmol/L [facility] CO2 [Moles/Vol] 32 mmol/L 21 - 32 mmol/L [facility] Creatinine [Mass/Vol] 0.76 mg/dL 0.50 - 1.30 mg/dL [facility] eGFR - PINF [facility] Glucose [Mass/Vol] 89 mg/dL 74 - 99 mg/dL [facility] Interpretation and review of laboratory results Abnormal [facility] Potassium [Moles/Vol] 3.5 mmol/L 3.5 - 5.3 mmol/L [facility] Sodium [Moles/Vol] 132 mmol/L Low 136 - 145 mmol/L [facility] Urea nitrogen [Mass/Vol] 9 mg/dL 6 - 23 mg/dL [facility] Anion gap [Moles/Vol] 12 mmol/L Normal 10-20 [facility] Comment on above: Performed By: #### 1 4979-9 #### ANA M Soler ([id number]) [facility] ([facility]) [address] [place] [address] Calcium [Mass/Vol] 8.7 mg/dL Normal 8.6-10.6 [facility] Comment on above: Performed By: #### 1 4979-9 #### ANA M Soler ([id number]) [facility] ([facility]) [address] [place] [address] Chloride [Moles/Vol] 92 mmol/L Low 98-107 [facility] Comment on above: Performed By: #### 1 4979-9 #### ANA M SCHULTZMOTZER L ([id number]) [facility] ([facility]) [address] [place] [address] CO2 [Moles/Vol] 32 mmol/L Normal 21-32 [facility] Comment on above: Performed By: #### 1 4979-9 #### ANA M CSHULTZMOTZER L ([id number]) [facility] ([facility]) [address] [place] [address] Creatinine [Mass/Vol] 0.76 mg/dL Normal 0.50-1.30 [facility] Comment on above: Performed By: #### 1 4979-9 #### ANA M BROWNTZER L ([id number]) [facility] ([facility]) [address] [place] [address] 91185 Glomerular filtration rate >90 Normal >60 [facility] Comment on above: Result Comment: Calc ulations of estimated GFR are performed using the 2020 CKD-EPI Study Refit equation without the race variable for the IDMS-Traceable creatinine methods. https://jasn.asnjournals.org/content/early//ASN.75828 96864 Performed By: #### 1 4979-9 #### ANA M BROWNTZER L ([id number]) [facility] ([facility]) [address] [place] [address] Glucose [Mass/Vol] 89 mg/dL Normal 74-99 [facility] Comment on above: Performed By: #### 1 4979-9 #### ANA M SCHULTZMOTZER L ([id number]) [facility] ([facility]) [address] [place] [address] Potassium [Moles/Vol] 3.5 mmol/L Normal 3.5-5.3 [facility] Comment on above: Performed By: #### 1 4979-9 #### ANA M Soler ([id number]) [facility] ([facility]) [address] [place] [address] Sodium [Moles/Vol] 132 mmol/L Low 136-145 [facility] Comment on above: Performed By: #### 1 4979-9 #### ANA M Soler ([id number]) [facility] ([facility]) [address] [place] [address] Urea nitrogen [Mass/Vol] 9 mg/dL Normal - [facility] Comment on above: Performed By: #### 1 4979-9 #### ANA M Soler ([id number]) [facility] ([facility]) [address] [place], [place] [id number] CBC W Auto Differential pane l (Bld)on 12-07-2024 Basophils (Bld) [#/Vol] 0.06 10*3/uL [facility] Basophils/100 WBC (Bld) 0.4 % 0.0 - 2.0 % [facility] Eosinophils (Bld) [#/Vol] 0.13 10*3/uL [facility] Eosinophils/100 WBC (Bld) 1.0 % 0.0 - 6.0 % [facility] Erythrocyte distribution width (RBC) [Ratio] 18.0 % High 11.5 - 14.5 % [facility] Hematocrit (Bld) [Volume fraction] 36.7 % Low 41.0 - 52.0 % [facility] Hemoglobin (Bld) [Mass/Vol] 12.8 g/dL Low 13.5 - 17.5 g/dL [facility] Immature granulocytes (Bld) [#/Vol] 0.16 10*3/uL [facility] Immature granulocytes/100 WBC (Bld) 1.2 % High 0.0 - 0.9 % [facility] Interpretation and review of laboratory results Abnormal [facility] Lymphocytes (Bld) [#/Vol] 1.68 10*3/uL [facility] Lymphocytes/100 WBC (Bld) 12.5 % 13.0 - 44.0 % [facility] MCH (RBC) [Entitic mass] 38.3 pg High 26.0 - 34.0 pg [facility] MCHC (RBC) [Mass/Vol] 34.9 g/dL 32.0 - 36.0 g/dL [facility] MCV (RBC) [Entitic vol] 110 fL High 80 - 100 fL [facility] Monocytes (Bld) [#/Vol] 1.41 10*3/uL [facility] Monocytes/100 WBC (Bld) 10.5 % 2.0 - 10.0 % [facility] Neutrophils (Bld) [#/Vol] 10.01 10*3/uL [facility] Neutrophils/100 WBC (Bld) 74.4 % 40.0 - 80.0 % [facility] Nucleated RBC/100 WBC (Bld) [Ratio] 0.1 % [facility] Platelets (Bld) [#/Vol] 121 10*3/uL Low [facility] RBC (Bld) [#/Vol] 3.34 10*6/uL Low [facility] WBC (Bld) [#/Vol] 13.5 10*3/uL High [facility] Basophils (Bld) [#/Vol] 0.06 x10*3/uL Normal 0.00-0.10 [facility] Comment on above: Performed By: #### 2 4339-4 #### ANA M Soler ([id number]) [facility] ([facility]) [id number] [place] [address] Basophils/100 WBC (Bld) 0.4 % Normal 0.0-2.0 [facility] [facility] Comment on above: Performed By: #### 2 4339-4 #### ANA M Soler ([id number]) [facility] ([facility]) [address] [place] [address] Eosinophils (Bld) [#/Vol] 0.13 x10*3/uL Normal 0.00-0.70 [facility] Comment on above: Performed By: #### 2 4339-4 #### ANA M Soler ([id number]) [facility] ([facility]) [address] [place] [address] 16018 Eosinophils/100 WBC (Bld) 1.0 % Normal 0.0-6.0 [facility] Comment on above: Performed By: #### 2 4339-4 #### ANA M Soler ([id number]) [facility] ([facility]) [address] [place] [address] 69084 Erythrocyte distribution width (RBC) [Ratio] 18.0 % High 11.5-14.5 [facility] Comment on above: Performed By: #### 2 4339-4 #### ANA M Soler ([id number]) [facility] ([facility]) [address] [place] [address] 53866 Hematocrit (Bld) [Volume fraction] 36.7 % Low 41.0-52.0 [facility] Comment on above: Performed By: #### 2 4339-4 #### ANA M Soler ([id number]) [facility] ([facility]) [address] [place] [address] 63949 Hemoglobin (Bld) [Mass/Vol] 12.8 g/dL Low 13.5-17.5 [facility] Comment on above: Performed By: #### 2 4339-4 #### ANA M Soler ([id number]) [facility] ([facility]) [address] [place] [address] 05946 Immature granulocytes (Bld) [#/Vol] 0.16 x10*3/uL Normal 0.00-0.70 [facility] Comment on above: Performed By: #### 2 4339-4 #### ANA M Soler ([id number]) [facility] ([facility]) [address] [place] [address] 39955 Immature granulocytes/100 WBC (Bld) 1.2 % High 0.0-0.9 [facility] Comment on above: Result Comment: Johanna ture Granulocyte Count (IG) includes promyelocytes, myelocytes and metamyelocytes but does not include bands. Percent differential counts (%) should be interpreted in the context of the absolute cell counts (cells/UL). Performed By: #### 2 4339-4 #### ANA M Soler ([id number]) [facility] ([facility]) [address] [place] [address] 47477 Lymphocytes (Bld) [#/Vol] 1.68 x10*3/uL Normal 1.20-4.80 [facility] Comment on above: Performed By: #### 2 4339-4 #### ANA M Soler ([id number]) [facility] ([facility]) [address] [place] [address] 51954 Lymphocytes/100 WBC (Bld) 12.5 % Normal 13.0-44.0 [facility] Comment on above: Performed By: #### 2 4339-4 #### ANA M Soler ([id number]) [facility] ([facility]) [address] [place] [address] 83760 MCH (RBC) [Entitic mass] 38.3 pg High 26.0-34.0 [facility] Comment on above: Performed By: #### 2 4339-4 #### ANA M Soler ([id number]) [facility] ([facility]) [address] [place] [address] 61133 MCHC (RBC) [Mass/Vol] 34.9 g/dL Normal 32.0-36.0 [facility] Comment on above: Performed By: #### 2 4339-4 #### ANA M Soler ([id number]) [facility] ([facility]) [address] [place] [address] 99890 MCV (RBC) [Entitic vol] 110 fL High 80-100 [facility] Comment on above: Performed By: #### 2 4339-4 #### ANA M Soler ([id number]) [facility] ([facility]) [address] [place] [address] 39077 Monocytes (Bld) [#/Vol] 1.41 x10*3/uL High 0.10-1.00 [facility] Comment on above: Performed By: #### 2 4339-4 #### ANA M Soler ([id number]) [facility] ([facility]) [address] [place] [address] Monocytes/100 WBC (Bld) 10.5 % Normal 2.0-10.0 [facility] Comment on above: Performed By: #### 2 4339-4 #### ANA M Soler ([id number]) [facility] ([facility]) [address] [place] [address] 00209 Neutrophils (Bld) [#/Vol] 10.01 x10*3/uL High 1.20-7.70 [facility] Comment on above: Result Comment: Perc ent differential counts (%) should be interpreted in the context of the absolute cell counts (cells/uL). Performed By: #### 2 4339-4 #### ANA M Soler ([id number]) [facility] ([facility]) [address] [place] [address] 88969 Neutrophils/100 WBC (Bld) 74.4 % Normal 40.0-80.0 [facility] Comment on above: Performed By: #### 2 4339-4 #### ANA M Soler ([id number]) [facility] ([facility]) [address] [place] [address] 06132 Nucleated RBC/100 WBC (Bld) [Ratio] 0.1 /100 WBCs High 0.0-0.0 [facility] Comment on above: Performed By: #### 2 4339-4 #### ANA M Soler ([id number]) [facility] ([facility]) [address] [place] [address] 04861 Platelets (Bld) [#/Vol] 121 x10*3/uL Low 150-450 [facility] Comment on above: Performed By: #### 2 4339-4 #### ANA M Soler ([id number]) [facility] ([facility]) [address] [place] [address] 10327 RBC (Bld) [#/Vol] 3.34 x10*6/uL Low 4.50-5.90 [facility] Comment on above: Performed By: #### 2 4339-4 #### ANA M Soler ([id number]) [facility] ([facility]) [address] [place] [address] WBC (Bld) [#/Vol] 13.5 x10*3/uL High 4.4-11.3 [facility] Comment on above: Performed By: #### 2 4339-4 #### ANA M Soler ([id number]) [facility] ([facility]) [address] [place] [address] Hepatic function 2000 panelo n 12-07-2024 Albumin BCP dye [Mass/Vol] 3.4 g/dL 3.4 - 5.0 g/dL [facility] ALP [Catalytic activity/Vol] 168 U/L High 33 - 120 U/L [facility] ALT With P-5'-P [Catalytic activity/Vol] 54 U/L High 10 - 52 U/L [facility] AST With P-5'-P [Catalytic activity/Vol] 128 U/L High 9 - 39 U/L [facility] Bilirubin [Mass/Vol] 20.2 mg/dL High 0.0 - 1 .2 mg/dL [facility] Bilirubin.direct [Mass/Vol] 13.5 mg/dL High 0.0 - 0.3 mg/dL [facility] Interpretation and review of laboratory results Abnormal [facility] Protein [Mass/Vol] 6.0 g/dL Low 6.4 - 8.2 g/dL [facility] Albumin BCP dye [Mass/Vol] 3.4 g/dL Normal 3.4-5.0 [facility] Comment on above: Performed By: #### 1 4979-9 #### ANA M Soler ([id number]) [facility] ([facility]) [address] [place], [place] [address] ALP [Catalytic activity/Vol] 168 U/L High 33-120 [facility] Comment on above: Performed By: #### 1 4979-9 #### ANA M Soler ([id number]) [facility] ([facility]) [address] [place] [address] ALT With P-5'-P [Catalytic activity/Vol] 54 U/L High 10-52 [facility] Comment on above: Result Comment: Kala ents treated with Sulfasalazine may generate falsely decreased results for ALT. Performed By: #### 1 4979-9 #### ANA M Soler ([id number]) [facility] ([facility]) [address] [place] [address] AST With P-5'-P [Catalytic activity/Vol] 128 U/L High 9-39 [facility] Comment on above: Performed By: #### 1 4979-9 #### ANA M Soler ([id number]) [facility] ([facility]) [address] [place] [address] Bilirubin [Mass/Vol] 20.2 mg/dL High 0.0-1.2 [facility] Comment on above: Performed By: #### 1 4979-9 #### ANA M Soler ([id number]) [facility] ([facility]) [address] [place] [address] Bilirubin.direct [Mass/Vol] 13.5 mg/dL High 0.0-0.3 [facility] Comment on above: Performed By: #### 1 4979-9 #### ANA M Soler ([id number]) [facility] ([facility]) [address] [place] [address] 93610 Protein [Mass/Vol] 6.0 g/dL Low 6.4-8.2 [facility] Comment on above: Performed By: #### 1 4979-9 #### ANA M Soler ([id number]) [facility] ([facility]) [address] [place] [address] 70124 Liver kidney microsomal Ab I F (S) [Titer]on 12-07-2024 [facility] Liver/Kidney Microsome Type 1 Antibodies, Serumon 12-07-2024 Liver kidney microsomal Ab IF (S) [Titer] <1:20 [facility] Magnesiumon 12-07-2024 Magnesium [Mass/Vol] 2.45 mg/dL High 1.60 - 2.40 mg/dL [facility] Magnesium [Mass/Vol] 2.45 mg/dL High 1.60-2.40 [facility] Comment on above: Performed By: #### 1 4979-9 #### ANA M Soler ([id number]) [facility] ([facility]) [address] [place], [place] [address] No Panel Informationon 12-07 Interpretation and review of laboratory results Abnormal [facility] PT and aPTT panel Coag (PPP) on 12-07-2024 aPTT Coag (PPP) [Time] 29 s Un [facility] INR Coag (PPP) [Relative time] 1.5 {INR} High 0.9 - 1.1 [facility] Interpretation and review of laboratory results Abnormal [facility] PT Coag (PPP) [Time] 17.1 s High [facility] aPTT Coag (PPP) [Time] 29 s Normal 26-36 [facility] Comment on above: Order Comment: The A PTT is no longer used for monitoring Unfractionated Heparin Therapy. For monitoring Heparin Therapy, use the Heparin Assay. Performed By: #### 2 4339-4 #### ANA M Soler ([id number]) [facility] ([facility]) [address] [place] [address] 49102 INR Coag (PPP) [Relative time] 1.5 High 0.9-1.1 [facility] Comment on above: Order Comment: The A PTT is no longer used for monitoring Unfractionated Heparin Therapy. For monitoring Heparin Therapy, use the Heparin Assay. Performed By: #### 2 4339-4 #### ANA M Soler ([id number]) [facility] ([facility]) [address] [place] [address] 39235 PT Coag (PPP) [Time] 17.1 s High 9.8-12.4 [facility] Comment on above: Order Comment: The A PTT is no longer used for monitoring Unfractionated Heparin Therapy. For monitoring Heparin Therapy, use the Heparin Assay. Performed By: #### 2 4339-4 #### ANA M Soler ([id number]) [facility] ([facility]) [address] [place] [address] Phosphateon 12-07-2024 Phosphate [Mass/Vol] 1.8 mg/dL Low 2.5-4.9 [facility] Comment on above: Performed By: #### 1 4979-9 #### ANA M Soelr ([id number]) [facility] ([facility]) [address] [place] [address] 04657 Phosphatidylethanol (PEth), Whole Blood, Quantitativeon 12-07-2024 Laboratory comment Christopher (Report) See Comment [facility] report See Note [facility] PEth 16:0/18:1 (POPEth) 1576 ng/mL [facility] PEth 16:0/18:2 (PLPEth) 1798 ng/mL [facility] Phosphoruson 12-07-2024 Phosphate [Mass/Vol] 1.8 mg/dL Low 2.5 - 4 .9 mg/dL [facility] Vascular US abdomen/pelvis d uplex completeon 12-07-2024 [facility] Work Phone: Radiology Study observation (narrative) [facility] Work Phone: Vascular US abdomen/pelvis d uplex completeOrdered By: Houston Avalos on 12-07-2024 [facility] Work Phone: Basic metabolic 2000 panelon 12-06-2024 Anion gap [Moles/Vol] 12 mmol/L 10 - 2 0 mmol/L [facility] Calcium [Mass/Vol] 8.1 mg/dL Low 8.6 - 10. 6 mg/dL [facility] Chloride [Moles/Vol] 91 mmol/L Low 98 - 10 7 mmol/L [facility] CO2 [Moles/Vol] 31 mmol/L 21 - 32 mmol/L [facility] Creatinine [Mass/Vol] 0.63 mg/dL 0.50 - 1.30 mg/dL [facility] eGFR - PINF [facility] Glucose [Mass/Vol] 99 mg/dL 74 - 99 mg/dL [facility] Interpretation and review of laboratory results Abnormal [facility] Potassium [Moles/Vol] 3.1 mmol/L Low 3.5 - 5.3 mmol/L [facility] Sodium [Moles/Vol] 131 mmol/L Low 136 - 145 mmol/L [facility] Urea nitrogen [Mass/Vol] 11 mg/dL 6 - 23 mg/dL [facility] Anion gap [Moles/Vol] 12 mmol/L Normal 10-20 [facility] Comment on above: Performed By: #### 2 4339-4 #### ANA M AVINA L ([id number]) [facility] ([facility]) [address] [place] [address] 69941 Calcium [Mass/Vol] 8.1 mg/dL Low 8.6-10.6 [facility] Comment on above: Performed By: #### 2 4339-4 #### ANA M AVINA L ([id number]) [facility] ([facility]) [address] [place] [address] 94899 Chloride [Moles/Vol] 91 mmol/L Low 98-107 [facility] Comment on above: Performed By: #### 2 4339-4 #### ANA M SCHULTZMOTZER L ([id number]) [facility] ([facility]) [address] [place] [address] 75664 CO2 [Moles/Vol] 31 mmol/L Normal 21-32 [facility] Comment on above: Performed By: #### 2 4339-4 #### ANA M AVINA L ([id number]) [facility] ([facility]) [address] [place] [address] 32951 Creatinine [Mass/Vol] 0.63 mg/dL Normal 0.50-1.30 [facility] Comment on above: Performed By: #### 2 4339-4 #### ANA M AVINA L ([id number]) [facility] ([facility]) [address] [place] [address] 51855 Glomerular filtration rate >90 Normal >60 [facility] Comment on above: Result Comment: Calc ulations of estimated GFR are performed using the 2020 CKD-EPI Study Refit equation without the race variable for the IDMS-Traceable creatinine methods. https://jasn.asnjournals.org/content//ASN.53949 12995 Performed By: #### 2 4339-4 #### ANA M Soler ([id number]) [facility] ([facility]) [address] [place] [address] 40171 Glucose [Mass/Vol] 99 mg/dL Normal 74-99 [facility] Comment on above: Performed By: #### 2 4339-4 #### ANA M Soler ([id number]) [facility] ([facility]) [address] [place] [address] 57340 Potassium [Moles/Vol] 3.1 mmol/L Low 3.5-5.3 [facility] Comment on above: Performed By: #### 2 4339-4 #### ANA M Soler ([id number]) [facility] ([facility]) [address] [place] [address] 79040 Sodium [Moles/Vol] 131 mmol/L Low 136-145 [facility] Comment on above: Performed By: #### 2 4339-4 #### ANA M Soler ([id number]) [facility] ([facility]) [address] [place] [address] 12546 Urea nitrogen [Mass/Vol] 11 mg/dL Normal 6-23 [facility] Comment on above: Performed By: #### 2 4339-4 #### ANA M Soler ([id number]) [facility] ([facility]) [address] [place] [address] 06567 CBC W Auto Differential pane l (Bld)on 12-06-2024 Basophils (Bld) [#/Vol] 0.03 10*3/uL [facility] Basophils/100 WBC (Bld) 0.3 % 0.0 - 2.0 % [facility] Eosinophils (Bld) [#/Vol] 0.11 10*3/uL [facility] Eosinophils/100 WBC (Bld) 1.1 % 0.0 - 6.0 % [facility] Erythrocyte distribution width (RBC) [Ratio] 17.3 % High 11.5 - 14.5 % [facility] Hematocrit (Bld) [Volume fraction] 33.2 % Low 41.0 - 52.0 % [facility] Hemoglobin (Bld) [Mass/Vol] 11.4 g/dL Low 13.5 - 17.5 g/dL [facility] Immature granulocytes (Bld) [#/Vol] 0.06 10*3/uL [facility] Immature granulocytes/100 WBC (Bld) 0.6 % 0.0 - 0.9 % [facility] Interpretation and review of laboratory results Abnormal [facility] Lymphocytes (Bld) [#/Vol] 1.09 10*3/uL Low [facility] Lymphocytes/100 WBC (Bld) 10.6 % 13.0 - 44.0 % [facility] MCH (RBC) [Entitic mass] 38.1 pg High 26.0 - 34.0 pg [facility] MCHC (RBC) [Mass/Vol] 34.3 g/dL 32.0 - 36.0 g/dL [facility] MCV (RBC) [Entitic vol] 111 fL High 80 - 100 fL [facility] Monocytes (Bld) [#/Vol] 0.89 10*3/uL [facility] Monocytes/100 WBC (Bld) 8.7 % 2.0 - 10.0 % [facility] Neutrophils (Bld) [#/Vol] 8.08 10*3/uL High [facility] Neutrophils/100 WBC (Bld) 78.7 % 40.0 - 80.0 % [facility] Nucleated RBC/100 WBC (Bld) [Ratio] 0.0 % [facility] Platelets (Bld) [#/Vol] 81 10*3/uL Low [facility] RBC (Bld) [#/Vol] 2.99 10*6/uL Low [facility] WBC (Bld) [#/Vol] 10.3 10*3/uL [facility] Basophils (Bld) [#/Vol] 0.03 x10*3/uL Normal 0.00-0.10 [facility] Comment on above: Performed By: #### 2 4339-4 #### ANA M Soler ([id number]) [facility] ([facility]) [address] [place] [address] 85918 Basophils/100 WBC (Bld) 0.3 % Normal 0.0-2.0 [facility] Comment on above: Performed By: #### 2 4339-4 #### ANA M Soler ([id number]) [facility] ([facility]) [address] [place] [address] 38201 Eosinophils (Bld) [#/Vol] 0.11 x10*3/uL Normal 0.00-0.70 [facility] Comment on above: Performed By: #### 2 4339-4 #### ANA M AVINA L ([id number]) [facility] ([facility]) [address] [place] [address] 76905 Eosinophils/100 WBC (Bld) 1.1 % Normal 0.0-6.0 [facility] Comment on above: Performed By: #### 2 4339-4 #### ANA M Soler ([id number]) [facility] ([facility]) [address] [place] [address] 03125 Erythrocyte distribution width (RBC) [Ratio] 17.3 % High 11.5-14.5 [facility] Comment on above: Performed By: #### 2 4339-4 #### ANA M AVINA L ([id number]) [facility] ([facility]) [address] [place] [address] 46507 Hematocrit (Bld) [Volume fraction] 33.2 % Low 41.0-52.0 [facility] Comment on above: Performed By: #### 2 4339-4 #### ANA M AVINA L ([id number]) [facility] ([facility]) [address] [place] [address] Hemoglobin (Bld) [Mass/Vol] 11.4 g/dL Low 13.5-17.5 [facility] Comment on above: Performed By: #### 2 4339-4 #### ANA M Soler ([id number]) [facility] ([facility]) [address] [place] [address] 76237 Immature granulocytes (Bld) [#/Vol] 0.06 x10*3/uL Normal 0.00-0.70 [facility] Comment on above: Performed By: #### 2 4339-4 #### ANA M Soler ([id number]) [facility] ([facility]) [address] [place] [address] 71722 Immature granulocytes/100 WBC (Bld) 0.6 % Normal 0.0-0.9 [facility] Comment on above: Result Comment: Johanna ture Granulocyte Count (IG) includes promyelocytes, myelocytes and metamyelocytes but does not include bands. Percent differential counts (%) should be interpreted in the context of the absolute cell counts (cells/UL). Performed By: #### 2 4339-4 #### ANA M Soler ([id number]) [facility] ([facility]) [address] [place] [address] 97417 Lymphocytes (Bld) [#/Vol] 1.09 x10*3/uL Low 1.20-4.80 [facility] Comment on above: Performed By: #### 2 4339-4 #### ANA M Soler ([id number]) [facility] ([facility]) [address] [place] [address] 93999 Lymphocytes/100 WBC (Bld) 10.6 % Normal 13.0-44.0 [facility] Comment on above: Performed By: #### 2 4339-4 #### ANA M Soler (43606) [facility] ([facility]) [address] [place] [address] MCH (RBC) [Entitic mass] 38.1 pg High 26.0-34.0 [facility] Comment on above: Performed By: #### 2 4339-4 #### ANA M Soler ([id number]) [facility] ([facility]) [address] [place] [address] MCHC (RBC) [Mass/Vol] 34.3 g/dL Normal 32.0-36.0 [facility] Comment on above: Performed By: #### 2 4339-4 #### ANA M Soler ([id number]) [facility] ([facility]) [address] [place] [address] MCV (RBC) [Entitic vol] 111 fL High 80-100 [facility] Comment on above: Performed By: #### 2 4339-4 #### ANA M Soler ([id number]) [facility] ([facility]) [address] [place] [address] 74516 Monocytes (Bld) [#/Vol] 0.89 x10*3/uL Normal 0.10-1.00 [facility] Comment on above: Performed By: #### 2 4339-4 #### ANA M Soler ([id number]) [facility] ([facility]) [address] [place] [address] Monocytes/100 WBC (Bld) 8.7 % Normal 2.0-10.0 [facility] Comment on above: Performed By: #### 2 4339-4 #### ANA M Soler ([id number]) [facility] ([facility]) [address] [place] [address] Neutrophils (Bld) [#/Vol] 8.08 x10*3/uL High 1.20-7.70 [facility] Comment on above: Result Comment: Perc ent differential counts (%) should be interpreted in the context of the absolute cell counts (cells/uL). Performed By: #### 2 4339-4 #### ANA M AVINA L ([id number]) [facility] ([facility]) [address] [place] [address] Neutrophils/100 WBC (Bld) 78.7 % Normal 40.0-80.0 [facility] Comment on above: Performed By: #### 2 4339-4 #### ANA M Soler ([id number]) [facility] ([facility]) [address] [place] [address] 99785 Nucleated RBC/100 WBC (Bld) [Ratio] 0.0 /100 WBCs Normal 0.0-0.0 [facility] Comment on above: Performed By: #### 2 4339-4 #### ANA M Soler ([id number]) [facility] ([facility]) [address] [place] [address] 76183 Platelets (Bld) [#/Vol] 81 x10*3/uL Low 150-450 [facility] Comment on above: Performed By: #### 2 4339-4 #### ANA M Soler ([id number]) [facility] ([facility]) [address] [place] [address] 63858 RBC (Bld) [#/Vol] 2.99 x10*6/uL Low 4.50-5.90 [facility] Comment on above: Performed By: #### 2 4339-4 #### ANA M Soler ([id number]) [facility] ([facility]) [address] [place] [address] 05855 WBC (Bld) [#/Vol] 10.3 x10*3/uL Normal 4.4-11.3 [facility] Comment on above: Performed By: #### 2 4339-4 #### ANA M Soler ([id number]) [facility] ([facility]) [address] [place] [address] Head WO contraston 2024 [facility]AL [facility] Work Phone: Radiology Study observation (narrative) [facility] Work Phone: CT Head WO contrastOrdered B y: Ignacio Melissa on 12-06-2024 [facility] Work Phone: Hepatic function 2000 panelo n 12-06-2024 Albumin BCP dye [Mass/Vol] 3.1 g/dL Low 3.4 - 5.0 g/dL [facility] ALP [Catalytic activity/Vol] 154 U/L High 33 - 120 U/L [facility] ALT With P-5'-P [Catalytic activity/Vol] 46 U/L 10 - 52 U/L [facility] AST With P-5'-P [Catalytic activity/Vol] 116 U/L High 9 - 39 U/L [facility] Bilirubin [Mass/Vol] 17.1 mg/dL High 0.0 - 1 .2 mg/dL [facility] Bilirubin.direct [Mass/Vol] 9.6 mg/dL High 0.0 - 0.3 mg/dL [facility] Interpretation and review of laboratory results Abnormal [facility] Protein [Mass/Vol] 5.1 g/dL Low 6.4 - 8.2 g/dL [facility] Albumin BCP dye [Mass/Vol] 3.1 g/dL Low 3.4-5.0 [facility] Comment on above: Performed By: #### 2 4339-4 #### ANA M Soler ([id number]) [facility] ([facility]) [address] [place] [address] ALP [Catalytic activity/Vol] 154 U/L High 33-120 [facility] Comment on above: Performed By: #### 2 4339-4 #### ANA M Soler ([id number]) [facility] ([facility]) [address] [place] [address] ALT With P-5'-P [Catalytic activity/Vol] 46 U/L Normal 10-52 [facility] Comment on above: Result Comment: Kala ents treated with Sulfasalazine may generate falsely decreased results for ALT. Performed By: #### 2 4339-4 #### ANA M Soler ([id number]) [facility] ([facility]) [address] [place] [address] AST With P-5'-P [Catalytic activity/Vol] 116 U/L High 9-39 [facility] Comment on above: Performed By: #### 2 4339-4 #### ANA M Soler ([id number]) [facility] ([facility]) [id number] [place] [id number] Bilirubin [Mass/Vol] 17.1 mg/dL High 0.0-1.2 [facility] Comment on above: Performed By: #### 2 4339-4 #### ANA M Soler ([id number]) [facility] ([facility]) 36 [place] [address] 14080 Bilirubin.direct [Mass/Vol] 9.6 mg/dL High 0.0-0.3 [facility] Comment on above: Performed By: #### 2 4339-4 #### ANA M Soler ([id number]) [facility] ([facility]) [address] [place] [address] 35488 Protein [Mass/Vol] 5.1 g/dL Low 6.4-8.2 [facility] Comment on above: Performed By: #### 2 4339-4 #### ANA M Soler ([id number]) [facility] ([facility]) [address] [place] [address] 06991 Magnesiumon 12-06-2024 Magnesium [Mass/Vol] 2.34 mg/dL 1.60 - 2.40 mg/dL [facility] Magnesium [Mass/Vol] 2.34 mg/dL Normal 1.60-2.40 [facility] Comment on above: Performed By: #### 2 4339-4 #### ANA M Soler ([id number]) [facility] ([facility]) [address] [place] [address] 69429 Magnesium [Mass/Vol]on 12-06 Interpretation and review of laboratory results Normal [facility] No Panel Informationon 12-06 [facility] PT and aPTT panel Coag (PPP) on 12-06-2024 aPTT Coag (PPP) [Time] 28 s Un [facility] INR Coag (PPP) [Relative time] 1.5 {INR} High 0.9 - 1.1 [facility] Interpretation and review of laboratory results Abnormal [facility] PT Coag (PPP) [Time] 17.0 s High [facility] aPTT Coag (PPP) [Time] 28 s Normal 26-36 [facility] Comment on above: Order Comment: The A PTT is no longer used for monitoring Unfractionated Heparin Therapy. For monitoring Heparin Therapy, use the Heparin Assay. Performed By: #### 2 4339-4 #### ANA M Soler ([id number]) [facility] ([facility]) [address] [place] [address] 96249 INR Coag (PPP) [Relative time] 1.5 High 0.9-1.1 [facility] Comment on above: Order Comment: The A PTT is no longer used for monitoring Unfractionated Heparin Therapy. For monitoring Heparin Therapy, use the Heparin Assay. Performed By: #### 2 4339-4 #### ANA M Soler ([id number]) [facility] ([facility]) [address] [place] [address] 47855 PT Coag (PPP) [Time] 17.0 s High 9.8-12.4 [facility] Comment on above: Order Comment: The A PTT is no longer used for monitoring Unfractionated Heparin Therapy. For monitoring Heparin Therapy, use the Heparin Assay. Performed By: #### 2 4339-4 #### ANA M Soler ([id number]) [facility] ([facility]) [address] [place] [address] 30056 Phosphateon 12-06-2024 Phosphate [Mass/Vol] 2.2 mg/dL Low 2.5-4.9 [facility] Comment on above: Performed By: #### 2 4339-4 #### ANA M Soler ([id number]) [facility] ([facility]) [address] [place] [address] 58055 Phosphate [Mass/Vol]on 12-06 Interpretation and review of laboratory results Abnormal [facility] Phosphoruson 12-06-2024 Phosphate [Mass/Vol] 2.2 mg/dL Low 2.5 - 4 .9 mg/dL [facility] AFB Processedon 2024 Extra Tube Hold for add-ons. [facility] AFP Tumor Markeron 5 AFP [Mass/Vol] 6 ng/mL 0 - 9 ng/mL [facility] AFP [Mass/Vol]on 2024 Interpretation and review of laboratory results Normal [facility] AFP, Tumor Markeron 12-06-19 25 AFP TUMOR CORNELIO 8.7 ng/mL High 0.0-6.9 [facility] Comment on above: Order Comment: N Result Comment: [employer] Electrochemiluminescence Immunoassay (ECLIA) Values obtained with different assay methods or kits cannot be used interchangeably. Results cannot be interpreted as absolute evidence of the presence or absence of malignant disease. This test is not interpretable in females. Performed By: #### L 500.4050, L501.2450, L100.0100 #### [facility] [address] [place], [address] ANTI-NEUTROPHILIC CYTOPLASMI C ANTIBODYon 2024 Neutrophil cytoplasmic Ab pattern IF (S) [Interp] Not detected Normal None Detected [facility] Comment on above: Result Comment: INTE RPRETIVE INFORMATION: ANCA IFA Pattern Neutrophil Cytoplasmic Antibodies (C-ANCA = granular cytoplasmic staining, P-ANCA = perinuclear staining) are found in the serum of over 90 percent of patients with certain necrotizing systemic vasculitides, and usually in less than 5 percent of patients with collagen vascular disease or arthritis. Performed By: [facility] [address] [place] [address] 80654 Global Category Manager: Karthik Farias MD, PhD CLIA Number: [id number] Performed By: #### 1 4979-9 #### ANA M Soler ([id number]) [facility] ([facility]) [address] [place] [address] 74650 Neutrophil cytoplasmic IgG IF (S) [Titer] <1:20 Normal <1:20 [facility] Comment on above: Performed By: #### 1 4979-9 #### ANA M Soler ([id number]) [facility] ([facility]) [address] [place] [address] 26802 Acute hepatitis 2000 panel ( S)on 2024 HAV IgM Ql (S) Non-Reactive Nonreactive [facility] HBV core IgM Ql (S) Non-Reactive Nonreactive Un [facility] HBV surface Ag IA Ql Non-Reactive Nonreactive [facility] HCV Ab Ql (S) Non-Reactive Nonreactive [facility] Interpretation and review of laboratory results [facility] Alpha 1 antitrypsin phenotyp jennifer 2024 Alpha 1 antitrypsin phenotyping [Interp] MM [facility] Comment on above: Result Comment: Clinical Interpretation: The patient appears to have a normal phenotype. All M alleles (including subtypes M1, M2, and M3) produce normal serum concentrations of [id number] inhibitor and are not associated with clinical disease. Caution in interpretation is advised if the patient has been transfused within the previous 21 days. Performed By: [facility] [address] [place] [address] 51883 Global Category Manager: Karthik Farias MD, PhD CLIA Number: [id number] Performed By: #### 1 6362-6 #### ANA M Soler ([id number]) [facility] ([facility]) [address] [place], [place] [address] Alpha 1 antitrypsin phenotyp ing [Interp]on 2024 Alpha 1 antitrypsin [Mass/Vol] 257 mg/dL High 90-200 [facility] Comment on above: Result Comment: To c onvert to umol/L, multiply mg/dL by 0.185 Performed By: #### 1 6362-6 #### ANA M Soler ([id number]) [facility] ([facility]) [address] [place] [address] 45186 Basic metabolic 2000 panelon 2024 Anion gap [Moles/Vol] 15 mmol/L 10 - 2 0 mmol/L [facility] Calcium [Mass/Vol] 8.7 mg/dL 8.6 - 10. 6 mg/dL [facility] Chloride [Moles/Vol] 88 mmol/L Low 98 - 10 7 mmol/L [facility] CO2 [Moles/Vol] 29 mmol/L 21 - 32 mmol/L [facility] Creatinine [Mass/Vol] 0.71 mg/dL 0.50 - 1.30 mg/dL [facility] eGFR - PINF [facility] Glucose [Mass/Vol] 80 mg/dL 74 - 99 mg/dL [facility] Interpretation and review of laboratory results Abnormal [facility] Potassium [Moles/Vol] 3.1 mmol/L Low 3.5 - 5.3 mmol/L [facility] Sodium [Moles/Vol] 129 mmol/L Low 136 - 145 mmol/L [facility] Urea nitrogen [Mass/Vol] 13 mg/dL 6 - 23 mg/dL [facility] Anion gap [Moles/Vol] 15 mmol/L Normal 10-20 [facility] Comment on above: Performed By: #### 2 4323-8 #### ANA M Soler ([id number]) [facility] ([facility]) [address] [place] [address] 75907 Calcium [Mass/Vol] 8.7 mg/dL Normal 8.6-10.6 [facility] Comment on above: Performed By: #### 2 4323-8 #### ANA M AVINA L ([id number]) [facility] ([facility]) [address] [place] [address] 07976 Chloride [Moles/Vol] 88 mmol/L Low 98-107 [facility] Comment on above: Performed By: #### 2 4323-8 #### ANA M AVINA L ([id number]) [facility] ([facility]) [address] [place] [address] 37295 CO2 [Moles/Vol] 29 mmol/L Normal 21-32 [facility] Comment on above: Performed By: #### 2 4323-8 #### ANA M Soler ([id number]) [facility] ([facility]) [address] [place] [address] 39123 Creatinine [Mass/Vol] 0.71 mg/dL Normal 0.50-1.30 [facility] Comment on above: Performed By: #### 2 4323-8 #### ANA M Soler ([id number]) [facility] ([facility]) [address] [place] [address] 17718 Glomerular filtration rate >90 Normal >60 [facility] Comment on above: Result Comment: Calc ulations of estimated GFR are performed using the 2020 CKD-EPI Study Refit equation without the race variable for the IDMS-Traceable creatinine methods. https://jasn.asnjournals.org/content/early//ASN.59433 93966 Performed By: #### 2 4323-8 #### ANA M Soler ([id number]) [facility] ([facility]) [address] [place] [address] 44665 Glucose [Mass/Vol] 80 mg/dL Normal 74-99 [facility] Comment on above: Performed By: #### 2 4323-8 #### ANA M AVINA L ([id number]) [facility] ([facility]) [address] [place] [address] 44206 Potassium [Moles/Vol] 3.1 mmol/L Low 3.5-5.3 [facility] Comment on above: Performed By: #### 2 4323-8 #### ANA M AVINA L ([id number]) [facility] ([facility]) [address] [place] [address] 44093 Sodium [Moles/Vol] 129 mmol/L Low 136-145 [facility] Comment on above: Performed By: #### 2 4323-8 #### ANA M SCHULTZMOTZER L ([id number]) [facility] ([facility]) [address] [place] [address] 21672 Urea nitrogen [Mass/Vol] 13 mg/dL Normal 6-23 [facility] Comment on above: Performed By: #### 2 4323-8 #### ANA M AVINA L ([id number]) [facility] ([facility]) [address] [place] [address] 85323 Blood Gas Lactic Acid, Reid pickering 2024 Lactate (BldV) [Moles/Vol] 1.2 mmol/L 0.4 - 2.0 mmol/L [facility] CBC W Auto Differential pane l (Bld)on 2024 Basophils (Bld) [#/Vol] 0.02 10*3/uL [facility] Basophils/100 WBC (Bld) 0.2 % 0.0 - 2.0 % [facility] Eosinophils (Bld) [#/Vol] 0.06 10*3/uL [facility] Eosinophils/100 WBC (Bld) 0.5 % 0.0 - 6.0 % [facility] Erythrocyte distribution width (RBC) [Ratio] 16.8 % High 11.5 - 14.5 % [facility] Hematocrit (Bld) [Volume fraction] 34.2 % Low 41.0 - 52.0 % [facility] Hemoglobin (Bld) [Mass/Vol] 12.0 g/dL Low 13.5 - 17.5 g/dL [facility] Immature granulocytes (Bld) [#/Vol] 0.08 10*3/uL [facility] Immature granulocytes/100 WBC (Bld) 0.7 % 0.0 - 0.9 % [facility] Interpretation and review of laboratory results Abnormal [facility] Lymphocytes (Bld) [#/Vol] 1.20 10*3/uL [facility] Lymphocytes/100 WBC (Bld) 10.8 % 13.0 - 44.0 % [facility] MCH (RBC) [Entitic mass] 38.2 pg High 26.0 - 34.0 pg [facility] MCHC (RBC) [Mass/Vol] 35.1 g/dL 32.0 - 36.0 g/dL [facility] MCV (RBC) [Entitic vol] 109 fL High 80 - 100 fL [facility] Monocytes (Bld) [#/Vol] 0.75 10*3/uL [facility] Monocytes/100 WBC (Bld) 6.7 % 2.0 - 10.0 % [facility] Neutrophils (Bld) [#/Vol] 9.04 10*3/uL High [facility] Neutrophils/100 WBC (Bld) 81.1 % 40.0 - 80.0 % [facility] Nucleated RBC/100 WBC (Bld) [Ratio] 0.2 % High [facility] Platelets (Bld) [#/Vol] 83 10*3/uL [place] RBC (Bld) [#/Vol] 3.14 10*6/uL [facility] WBC (Bld) [#/Vol] 11.2 10*3/uL [facility] Basophils (Bld) [#/Vol] 0.02 x10*3/uL Normal 0.00-0.10 [facility] Comment on above: Performed By: #### 2 4323-8 #### ANA M Soler ([id number]) [facility] ([facility]) [address] [place] [address] 36078 Basophils/100 WBC (Bld) 0.2 % Normal 0.0-2.0 [facility] Comment on above: Performed By: #### 2 4323-8 #### ANA M Soler ([id number]) [facility] ([facility]) [address] [place] [address] 94191 Eosinophils (Bld) [#/Vol] 0.06 x10*3/uL Normal 0.00-0.70 [facility] Comment on above: Performed By: #### 2 4323-8 #### ANA M Soler ([id number]) [facility] ([facility]) [address] [place] [address] 63054 Eosinophils/100 WBC (Bld) 0.5 % Normal 0.0-6.0 [facility] Comment on above: Performed By: #### 2 4323-8 #### ANA M Soler ([id number]) [facility] ([facility]) [address] [place] [address] 24545 Erythrocyte distribution width (RBC) [Ratio] 16.8 % High 11.5-14.5 [facility] Comment on above: Performed By: #### 2 4323-8 #### ANA M Soler ([id number]) [facility] ([facility]) [address] [place] [address] 24233 Hematocrit (Bld) [Volume fraction] 34.2 % Low 41.0-52.0 [facility] Comment on above: Performed By: #### 2 4323-8 #### ANA M Soler ([id number]) [facility] ([facility]) [address] [place] [address] 84875 Hemoglobin (Bld) [Mass/Vol] 12.0 g/dL Low 13.5-17.5 [facility] Comment on above: Performed By: #### 2 4323-8 #### ANA M Soler ([id number]) [facility] ([facility]) [address] [place] [address] 14485 Immature granulocytes (Bld) [#/Vol] 0.08 x10*3/uL Normal 0.00-0.70 [facility] Comment on above: Performed By: #### 2 4323-8 #### ANA M Soler ([id number]) [facility] ([facility]) [address] [place] [address] 94652 Immature granulocytes/100 WBC (Bld) 0.7 % Normal 0.0-0.9 [facility] Comment on above: Result Comment: Johanna ture Granulocyte Count (IG) includes promyelocytes, myelocytes and metamyelocytes but does not include bands. Percent differential counts (%) should be interpreted in the context of the absolute cell counts (cells/UL). Performed By: #### 2 4323-8 #### ANA M Soler ([id number]) [facility] ([facility]) [address] [place] [address] 73035 Lymphocytes (Bld) [#/Vol] 1.20 x10*3/uL Normal 1.20-4.80 [facility] Comment on above: Performed By: #### 2 4323-8 #### ANA M Soler ([id number]) [facility] ([facility]) [address] [place] [address] 90041 Lymphocytes/100 WBC (Bld) 10.8 % Normal 13.0-44.0 [facility] Comment on above: Performed By: #### 2 4323-8 #### ANA M Soler ([id number]) [facility] ([facility]) [address] [place] [address] 76095 MCH (RBC) [Entitic mass] 38.2 pg High 26.0-34.0 [facility] Comment on above: Performed By: #### 2 4323-8 #### ANA M Soler ([id number]) [facility] ([facility]) [address] [place] [address] 00962 MCHC (RBC) [Mass/Vol] 35.1 g/dL Normal 32.0-36.0 [facility] Comment on above: Performed By: #### 2 4323-8 #### ANA M Soler ([id number]) [facility] ([facility]) [address] [place] [address] 25828 MCV (RBC) [Entitic vol] 109 fL High 80-100 [facility] Comment on above: Performed By: #### 2 4323-8 #### ANA M Soler ([id number]) [facility] ([facility]) [address] [place] [address] 74677 Monocytes (Bld) [#/Vol] 0.75 x10*3/uL Normal 0.10-1.00 [facility] Comment on above: Performed By: #### 2 4323-8 #### ANA M Soler ([id number]) [facility] ([facility]) [address] [place] [address] 81688 Monocytes/100 WBC (Bld) 6.7 % Normal 2.0-10.0 [facility] Comment on above: Performed By: #### 2 4323-8 #### ANA M Soler ([id number]) [facility] ([facility]) [address] [place] [address] 30225 Neutrophils (Bld) [#/Vol] 9.04 x10*3/uL High 1.20-7.70 [facility] Comment on above: Result Comment: Perc ent differential counts (%) should be interpreted in the context of the absolute cell counts (cells/uL). Performed By: #### 2 4323-8 #### ANA M Soler ([id number]) [facility] ([facility]) [address] [place] [address] Neutrophils/100 WBC (Bld) 81.1 % Normal 40.0-80.0 [facility] Comment on above: Performed By: #### 2 4323-8 #### ANA M Soler ([id number]) [facility] ([facility]) [address] [place] [address] 37406 Nucleated RBC/100 WBC (Bld) [Ratio] 0.2 /100 WBCs High 0.0-0.0 [facility] Comment on above: Performed By: #### 2 4323-8 #### ANA M Soler ([id number]) [facility] ([facility]) [address] [place] [address] Platelets (Bld) [#/Vol] 83 x10*3/uL Low 150-450 [facility] Comment on above: Performed By: #### 2 4323-8 #### ANA M Soler ([id number]) [facility] ([facility]) [address] [place] [address] 56648 RBC (Bld) [#/Vol] 3.14 x10*6/uL Low 4.50-5.90 [facility] Comment on above: Performed By: #### 2 4323-8 #### ANA M Soler ([id number]) [facility] ([facility]) [address] [place] [address] 73793 WBC (Bld) [#/Vol] 11.2 x10*3/uL Normal 4.4-11.3 [facility] Comment on above: Performed By: #### 2 4323-8 #### ANA M Soler ([id number]) [facility] ([facility]) [address] [place] [address] CT HEAD WO IV CONTRASTon CT HEAD WO IV CONTRAST Interpreted By: Ignacio Spencer, STUDY: CT HEAD WO IV CONTRAST; 12/06/2024 8:10 am INDICATION: Signs/Symptoms:altered mental status. COMPARISON: None. ACCESSION NUMBER(S): [id number] ORDERING CLINICIAN: BRIANNA SINGH TECHNIQUE: Axial noncontrast head CT FINDINGS: Parenchyma: The paz-white differentiation is intact. There is no mass effect or midline shift. There is no intracranial hemorrhage. CSF Spaces: The ventricles, sulci and basal cisterns are within normal limits. There is no extraaxial fluid collection. Calvarium: The calvarium is unremarkable. Paranasal sinuses and mastoids: Visualized paranasal sinuses and mastoids are clear. Incidental note is made of incomplete arch of the C1 vertebral body posteriorly. IMPRESSION: No acute intracranial abnormality was identified within the limits of noncontrast head CT. Signed by: Ignacio Torres 12/06/2024 5:35 PM Dictation workstation: [id number] Normal [facility] Cell count panel (Body fld)o n 2024 Clarity (Body fld) Clear Clear [facility] Color (Body fld) Yellow Colorless, Straw, Yellow [facility] RBC Auto (Body fld) [#/Vol] 2000 /uL see comment [facility] WBC (Body fld) [#/Vol] 0.133 10*3/uL See Elvin mcduffie [facility] Ceruloplasminon 2024 Ceruloplasmin [Mass/Vol] 23.4 mg/dL 20.0 - 60.0 mg/dL [facility] Work Phone: Ceruloplasmin [Mass/Vol] 23.4 mg/dL Normal 20.0-60.0 [facility] Comment on above: Performed By: #### 3 040-3 #### ANA M Soler ([id number]) [facility] ([facility]) [address] [place] [address] Differential panel (Body fld )on 2024 Cells Counted Total (Body fld) [#] 100 [facility] Eosinophils/100 WBC Manual cnt (Body fld) 5 % see comment [facility] Lymphocytes/100 WBC Manual cnt (Body fld) 6 % see comment [facility] Monocytes+Macrophages/ 100 WBC Manual cnt (Body fld) 46 % see comment [facility] Neutrophils/100 WBC (Body fld) 43 % see comment [facility] Drugs of abuse screen W Refl ex confirm panel (U)on 2024 Amphetamines Screen Ql (U) Negative Presumptive Negative [facility] Barbiturates Screen Ql (U) Negative Presumptive Negative [facility] Benzodiazepines Ql (U) Negative Presu mptive Negative [facility] Benzoylecgonine Screen Ql (U) Negative Presumptive Negative [facility] Cannabinoids Screen Ql (U) Negative Presumptive Negative [facility] fentaNYL+Norfentanyl Screen Ql (U) Negative Presumptive Negative [facility] Interpretation and review of laboratory results Normal [facility] Methadone Screen Ql (U) Negative Presumptive Negative [facility] Opiates Screen Ql (U) Negative Presum ptive Negative [facility] oxyCODONE+oxyMORphone Screen Ql (U) Negative Presumptive Negative [facility] Phencyclidine Ql (U) Negative Presump tive Negative [facility] ECG 12 leadOrdered By: Adam Armstrong on 2024 Atrial Rate 124 BPM [facility] Work Phone: [phone] P [place] 35 degrees [facility] Work Phone: [phone] P Offset 194 [facility] Work Phone: [phone] P Onset 140 [facility] Work Phone: [phone] NE Interval 156 ms [facility] Work Phone: [phone] Q Onset 218 [facility] Work Phone: [phone] QRS Count 21 beats [facility] Work Phone: [phone] QRS Duration 74 ms [facility] Work Phone: [phone] QT Interval 334 ms [facility] Work Phone: [phone] QTC Calculation(Bazett) 479 ms [facility] Work Phone: QTC Fredericia 425 ms [facility] Work Phone: R [place] -11 degrees [facility] Work Phone: T [place] 49 degrees [facility] Work Phone: [phone] T Offset 385 ms [facility] Work Phone: [phone] Ventricular Rate 124 BPM [facility] Work Phone: [phone] [facility] Work Phone: [phone] ECG 12 leadon 2024 MUSE [facility] Work Phone: Ethanolon 2024 Ethanol [Mass/Vol] mg/dL NINF - 10 mg/dL [facility] Work Phone: Ethanol [Mass/Vol]on 025 Interpretation and review of laboratory results Normal [facility] Work Phone: [facility] Work Phone: Ferritinon 2024 Ferritin [Mass/Vol] 2253 ng/mL High 20 - 300 ng/mL [facility] Gas panel (BldV)on 5 Anion gap 4 (BldV) [Moles/Vol] 10.0 mmol/L 10.0 - 25.0 mmol/L [facility] Base excess Calc (BldV) [Moles/Vol] 3.0 mmol/L -2.0 - 3.0 mmol/L [facility] Calcium.ionized (BldV) [Moles/Vol] 1.08 mmol/L Low 1.10 - 1.33 mmol/L [facility] Chloride (BldV) [Moles/Vol] 90 mmol/L Low 98 - 107 mmol/L [facility] CO2 (BldV) [Partial pressure] 34 mm[Hg] Low [facility] Glucose [Mass/Vol] 82 mg/dL 74 - 99 mg/dL [facility] HCO3 (Bld) [Moles/Vol] 25.9 mmol/L 22.0 - 26.0 mmol/L [facility] Hematocrit Est (Bld) [Volume fraction] 47.0 % 41.0 - 52.0 % [facility] Hemoglobin (Bld) [Mass/Vol] 15.5 g/dL 13.5 - 17.5 g/dL [facility] Inhaled oxygen concentration 21 % [facility] Interpretation and review of laboratory results Abnormal [facility] Lactate (BldV) [Moles/Vol] 2.4 mmol/L High 0.4 - 2.0 mmol/L [facility] Oxygen (BldV) [Partial pressure] 63 mm[Hg] High [facility] Oxygen saturation in Venous blood 92 % High 45 - 75 % [facility] Oxyhemoglobin (BldV) [Mass fraction] 89.3 % High 45.0 - 75.0 % [facility] pH (BldV) 7.49 [pH] High 7.33 - 7.43 pH [facility] Potassium (BldV) [Moles/Vol] 3.3 mmol/L Low 3.5 - 5.3 mmol/L [facility] Sodium (BldV) [Moles/Vol] 123 mmol/L Low 136 - 145 mmol/L [facility] Anion gap 4 (BldV) [Moles/Vol] 10.0 mmol/L Normal 10.0-25.0 [facility] Comment on above: Performed By: #### 3 040-3 #### ANA M Soler ([id number]) [facility] ([facility]) [address] [place] [address] Base excess Calc (BldV) [Moles/Vol] 3.0 mmol/L Normal -2.0-3.0 [facility] Comment on above: Performed By: #### 3 040-3 #### ANA M Soler ([id number]) [facility] ([facility]) [address] [place], [place] [id number] Calcium.ionized (BldV) [Moles/Vol] 1.08 mmol/L Low 1.10-1.33 [facility] Comment on above: Performed By: #### 3 040-3 #### ANA M Soler ([id number]) [facility] ([facility]) [address] [place] [address] 76096 Chloride (BldV) [Moles/Vol] 90 mmol/L Low 98-107 [facility] Comment on above: Performed By: #### 3 040-3 #### ANA M Soler ([id number]) [facility]) [address] [place] [address] 33511 CO2 (BldV) [Partial pressure] 34 mm Hg Low 41-51 [facility] Comment on above: Performed By: #### 3 040-3 #### ANA M Soler ([id number]) [facility] ([facility]) [address] [place] [address] 03637 Glucose [Mass/Vol] 82 mg/dL Normal 74-99 [facility] Comment on above: Performed By: #### 3 040-3 #### ANA M Soler ([id number]) [facility] ([facility]) [address] [place] [address] 86105 HCO3 (Bld) [Moles/Vol] 25.9 mmol/L Normal 22.0-26.0 [facility] Comment on above: Performed By: #### 3 040-3 #### ANA M Soler ([id number]) [facility]) [address] [place] [address] 35970 Hematocrit Est (Bld) [Volume fraction] 47.0 % Normal 41.0-52.0 [facility] Comment on above: Performed By: #### 3 040-3 #### ANA M Soler ([id number]) [facility]) [address] [place] [address] 60215 Hemoglobin (Bld) [Mass/Vol] 15.5 g/dL Normal 13.5-17.5 [facility] Comment on above: Performed By: #### 3 040-3 #### ANA M Soler ([id number]) [facility] ([facility]) [address] [place] [address] 18606 Inhaled oxygen concentration 21 % Normal [facility] Comment on above: Performed By: #### 3 040-3 #### ANA M Soler ([id number]) [facility] ([facility]) [address] [place] [address] 65503 Lactate (BldV) [Moles/Vol] 2.4 mmol/L High 0.4-2.0 [facility] Comment on above: Performed By: #### 3 040-3 #### ANA M Soler ([id number]) [facility] ([facility]) [address] [place] [address] 65304 Oxygen (BldV) [Partial pressure] 63 mm Hg High 35-45 [facility] Comment on above: Performed By: #### 3 040-3 #### ANA M Soler ([id number]) [facility] ([facility]) [address] [place] [address] 93951 Oxygen saturation in Venous blood 92 % High 45-75 [facility] Comment on above: Performed By: #### 3 040-3 #### ANA M Soler ([id number]) [facility] ([facility]) [address] [place] [address] 88350 Oxyhemoglobin (BldV) [Mass fraction] 89.3 % High 45.0-75.0 [facility] Comment on above: Performed By: #### 3 040-3 #### ANA M Soler ([id number]) [facility] ([facility]) [address] [place] [address] 26723 pH (BldV) 7.49 [pH] High 7.33-7.43 [facility] Comment on above: Performed By: #### 3 040-3 #### ANA M Soler ([id number]) [facility] ([facility]) [address] [place] [address] 66455 Potassium (BldV) [Moles/Vol] 3.3 mmol/L Low 3.5-5.3 [facility] Comment on above: Performed By: #### 3 040-3 #### ANA M Soler ([id number]) [facility] ([facility]) [address] [place] [address] Sodium (BldV) [Moles/Vol] 123 mmol/L Low 136-145 [facility] Comment on above: Performed By: #### 3 040-3 #### ANA M Soler ([id number]) [facility] ([facility]) [address] [place] [address] 40468 Hepatic function 2000 panelo n 2024 Albumin BCP dye [Mass/Vol] 3.5 g/dL 3.4 - 5.0 g/dL [facility] Work Phone: ALP [Catalytic activity/Vol] 173 U/L High 33 - 120 U/L [facility] Work Phone: [phone] ALT With P-5'-P [Catalytic activity/Vol] 53 U/L High 10 - 52 U/L [facility] Work Phone: [phone] AST With P-5'-P [Catalytic activity/Vol] 133 U/L High 9 - 39 U/L [facility] Work Phone: [phone] Bilirubin [Mass/Vol] 17.6 mg/dL High 0.0 - 1 .2 mg/dL [facility] Work Phone: [phone] Bilirubin.direct [Mass/Vol] 10.0 mg/dL High 0.0 - 0.3 mg/dL [facility] Work Phone: [phone] Interpretation and review of laboratory results Abnormal [facility] Work Phone: [phone] Protein [Mass/Vol] 5.9 g/dL Low 6.4 - 8.2 g/dL [facility] Work Phone: Albumin BCP dye [Mass/Vol] 3.5 g/dL Normal 3.4-5.0 [facility] Comment on above: Performed By: #### 2 4323-8 #### ANA M Soler ([id number]) [facility] ([facility]) [address] [place] [address] ALP [Catalytic activity/Vol] 173 U/L High 33-120 [facility] Comment on above: Performed By: #### 2 4323-8 #### ANA M Soler ([id number]) [facility] ([facility]) [address] [place] [address] ALT With P-5'-P [Catalytic activity/Vol] 53 U/L High 10-52 [facility] Comment on above: Result Comment: Kala ents treated with Sulfasalazine may generate falsely decreased results for ALT. Performed By: #### 2 4323-8 #### ANA M Soler ([id number]) [facility] ([facility]) [address] [place] [address] AST With P-5'-P [Catalytic activity/Vol] 133 U/L High 9-39 [facility] Comment on above: Performed By: #### 2 4323-8 #### ANA M Soler ([id number]) [facility] ([facility]) [address] [place] [address] 79708 Bilirubin [Mass/Vol] 17.6 mg/dL High 0.0-1.2 [facility] Comment on above: Performed By: #### 2 4323-8 #### ANA M Soler ([id number]) [facility] ([facility]) [address] [place] [address] 22635 Bilirubin.direct [Mass/Vol] 10.0 mg/dL High 0.0-0.3 [facility] Comment on above: Performed By: #### 2 4323-8 #### ANA M Soler ([id number]) [facility] ([facility]) [address] [place] [address] 19237 Protein [Mass/Vol] 5.9 g/dL Low 6.4-8.2 [facility] Comment on above: Performed By: #### 2 4323-8 #### ANA M Soler ([id number]) [facility] ([facility]) [address] [place] [address] 77575 Hepatitis A AB, Totalon 08-2 2-2025 HEPATITIS A,TOT Positive Abnormal Negative [facility] Comment on above: Result Comment: Comm ent: The HAV total antibody assay detects both IgG and IgM but does not differentiate between them. A negative result suggests susceptibility to infection. A positive result could be due to vaccination, previously resolved infection or active infection. Testing for HAV IgM should be performed if active HAV infection is suspected. [employer] offers profiles that will automatically reflex positive HAV total antibody results to IgM (e.g., panel #[id number] HAV Antibody w/ Rfx). Performed at: [address] [id number] Bank Boss: Stanley Ozuna PhD, Phone: [phone] Performed By: #### L 500.4050, L501.2450, L100.0100 #### [facility] [address] [place], [place], [id number] Hepatitis B Core Ab Totalon 2024 HEP B CORE,TOT Negative Normal Negative [facility] Comment on above: Performed By: #### L 500.4050, L501.2450, L100.0100 #### [facility] [address] [place], [place], [id number] IgGOrdered By: Nicola Saab on 2024 IgG [Mass/Vol] 870 mg/dL 700 - 1600 mg/dL [facility] IgGon 2024 IgG [Mass/Vol] 870 mg/dL Normal 700-1600 [facility] Comment on above: Result Comment: MONO CLONAL PROTEINS MAY CAUSE FALSELY LOW RESULTS IN THIS ASSAY. SERUM PROTEIN ELECTROPHORESIS SHOULD BE DONE THE FIRST TEST TO EVALUATE MONOCLONAL GAMMOPATHY. Performed By: #### 3 040-3 #### ANA M Soler ([id number]) [facility] ([facility]) [address] [place] [address] 95689 Iron and Iron binding capaci ty panelon 2024 Iron [Mass/Vol] 70 ug/dL 35 - 150 ug/dL [facility] Iron binding capacity [Mass/Vol] 160 ug/dL Low 240 - 445 ug/dL [facility] Iron binding capacity.unsaturated [Mass/Vol] 90 ug/dL Low 110 - 370 ug/dL [facility] Iron saturation [Mass fraction] 44 % 25 - 45 % [facility] L501.5101on 2024 GGTP 1155 IU/L Abnormal 0-65 [facility] Comment on above: Performed By: #### L 500.4050, L501.2450, L100.0100 #### [facility] [address] [place], [address] Lactateon 2024 Lactate (BldV) [Moles/Vol] 1.2 mmol/L Normal 0.4-2.0 [facility] Comment on above: Performed By: #### 3 040-3 #### ANA M Soler ([id number]) [facility] ([facility]) [address] [place] [address] 63730 Lactate [Moles/Vol] 1.6 mmol/L 0.4 - 2. 0 mmol/L [facility] Lactate [Moles/Vol] 1.6 mmol/L Normal 0.4-2.0 [facility] Comment on above: Order Comment: Venip uncture immediately after or during the administration of Metamizole may lead to falsely low results. Testing should be performed immediately prior to Metamizole dosing. Result Comment: MODE RATE ICTERUS DETECTED. The result may be falsely decreased due to icterus or other interferents. Clinical correlation is recommended. Repeat testing may be considered. Performed By: #### 3 040-3 #### ANA M Soler ([id number]) [facility] ([facility]) [address] [place] [address] 89483 Lactate (BldV) [Moles/Vol]on 2024 Interpretation and review of laboratory results Normal [facility] Lactate [Moles/Vol]on 2024 Interpretation and review of laboratory results Normal [facility] Liver kidney microsomal Abon 2024 Liver kidney microsomal Ab IF (S) [Titer] <1:20 Normal <1:20 [facility] Comment on above: Result Comment: INTE RPRETIVE INFORMATION: Uwuul-Qruijs-Uiomnavwk Abs, IgG Liver-Kidney Microsome IgG antibody (anti-LKM), as detected by indirect immunofluorescent antibody (IFA) techniques, may be observed in patients with autoimmune hepatitis type 2 (AIH-2), AIH-2 associated with autoimmune tzjaaoiybihyqyiwda-boytowgvmlg-orgwoyfvkh dystrophy (APECED), viral hepatitis C or D, and some forms of drug-induced hepatitis. This IFA does not differentiate among the four types of LKM antibodies (LKM-1, LKM-2, LKM-3, and a fourth type that recognizes CY and CY antigens). Of these, anti-LKM-1 (cytochrome C613BVW2) IgG antibodies are considered specific for AIH-2. This test was developed and its performance characteristics determined by [facility]. It has not been cleared or approved by the US Food and Drug Administration. This test was performed in a CLIA certified laboratory and is intended for clinical purposes. Performed By: [facility] [address] [place] [address]11 Global Category Manager: Karthik Farias MD, PhD CLIA Number: [id number] Performed By: #### 1 4979-9 #### ANA M Soler ([id number]) [facility] ([facility]) [address] [place] [address] MagnesiumOrdered By: Erna lopez on 2024 Magnesium [Mass/Vol] 1.85 mg/dL 1.60 - 2.40 mg/dL [facility] Magnesiumon 2024 Magnesium [Mass/Vol] 1.85 mg/dL Normal 1.60-2.40 [facility] Comment on above: Performed By: #### 2 4323-8 #### ANA M Soler ([id number]) [facility] ([facility]) [address] [place] [address] Magnetic resonance imaging r eportOrdered By: Brianna Aceves on 2024 Study report [facility] Services [address] [place] [address] MRI Abd WITH and W/O Contrast MR#: [id number] Acct: [id number] Name: JOSE PARKER Rep #: [id number] : 1980 M 43 From: Miriam Aceves MD PCP: Carmita Patrick, [facility] Status: REG CLI Study:MRI Abd WITH and W/O Contrast Date of E xam: 12/04/24 Exam# [id number] Ordering Dr: Maria Ines Ceja [employer] PROCEDURE: MRI ABD WITH AND W/O CONTRAST 12/04/2024 REASON FOR EXAM: ABNORMAL CT, PALPABLE ABDOMINAL MASS TECHNIQUE: MRI ABD WITH AND W/O CONTRAST Multiplanar and multisequence images were obtained. CONTRAST: Clariscan VOLUME: 15 mL COMPARISON: CT scan on 12/02/2024. FINDINGS: Bilateral basilar atelectatic pulmonary changes. Cirrhotic liver. Large number of regenerative nodules replacing the hepatic parenchyma. When correlated to the CT scan performed on 12/02/2024. The suspected liver mass adjacent to gallbladder fossa represents regenerative nodules. No suspicious enhancing nodule. No suspicious enhancing hepatic mass. Changes of portal hypertension. Recanalization of the umbilical vein. Prominent perigastric and periesophageal varices are noted. Moderate ascites is noted. Moderate mesenteric congestion. Diffuse spondylosis. Diffuse thickening of the stomach and the small bowels which is probably secondary to portal hypertension/ascites. Normal gallbladder and extrahepatic biliary system. Normal spleen. Normal pancreas. Normal bilateral adrenal glands. Normal size of the right kidney. There is no right renal mass. There are no right renal calculi. There is no right hydronephrosis. Normal visualized right ureter. Normal size of the left kidney. There is no left renal mass. There are no leftrenal calculi. There is no left hydronephrosis. Normal visualized left ureter. Normal abdominal aorta. Normal inferior vena cava. Normal retroperitoneum. Normal abdominal wall. MRI/MRI Abd WITH and W/O Contrast IMPRESSION: Bilateral basilar atelectatic pulmonary changes. Cirrhotic liver. Large number of regenerative nodules replacing the hepatic parenchyma. When correlated to the CT scan performed on 12/02/2024. The suspected liver massadjacent to gallbladder fossa represents regenerative nodules. No suspicious enhancing nodule. No suspicious enhancing hepatic mass. Changes of portal hypertension. Recanalization of the umbilical vein. Prominent perigastric and periesophageal varices are noted. Moderate ascites is noted. Moderate mesenteric congestion. Diffuse spondylosis. Diffuse thickening of the stomach and the small bowels which is probably secondary to portal hypertension/ascites. Reading [facility] CC: RAJESH Ceja; RAJESH Patrick ~ Radar Operator: Signed [facility] Mitochondria Abon 2024 Mitochondria Ab IF Ql (S) Negative Normal Negative [facility] Comment on above: Performed By: #### 5 902-2 #### ANA M Soler ([id number]) [facility] ([facility]) [address] [place] [address] No Panel InformationOrdered By: Nicola Saab on 2024 Interpretation and review of laboratory results Normal [facility] No Panel Informationon 12-05 Interpretation and review of laboratory results Normal [facility] Work Phone: [facility] Work Phone: Interpretation and review of laboratory results Abnormal [facility] Nuclear Abon 2024 Nuclear Ab Hep2 substrate Ql (S) Negative Normal Negative [facility] Comment on above: Result Comment: The Antinuclear Antibody (CHERYL) test was performed using indirect immunofluorescence assay with HEp-2 cells slide. Performed By: #### 5 902-2 #### ANA M Soler ([id number]) [facility] ([facility]) [address] [place] [address] OsmolalityOrdered By: Ann Polk on 2024 Osmolality [Osmolality] 273 mosm/kg Low [facility] Osmolality (U) [Osmolality]o n 2024 Interpretation and review of laboratory results [facility] Work Phone: [facility] Work Phone: Osmolality [Osmolality]Order ed By: Camelia Polk on 2024 Interpretation and review of laboratory results Abnormal [facility] Osmolality, urineon 12-06-19 25 Osmolality (U) [Osmolality] 705 mosm/kg [facility] Work Phone: PHOSPHATIDYLETHANOL (PETH), WHOLE BLOOD, QUANTITATIVEon 2024 Laboratory comment Christopher (Report) See Comment Normal [facility] Comment on above: Result Comment: Phos phatidylethanol (PEth) is a group of phospholipids formed in the presence of ethanol, phospholipase D and phosphatidylcholine. PEth is known to be a direct alcohol biomarker. The predominant PEth homologues are PEth 16:0/18:1 (POPEth) and PEth 16:0/18:2 (PLPEth), which account for 37-46% and 26-28% of the total PEth homologues, respectively. PEth is incorporated into the phospholipid membrane of red blood cells and has a general half-life of 4-10 days and a window of detection of 2-4 weeks. However, the window of detection is longer in individuals who chronically or excessively consume alcohol. The limit of quantification is 10 ng/mL. Serial monitoring of PEth may be helpful in monitoring alcohol abstinence over time. PEth results should be interpreted in the context of the patient's clinical and behavioral history. Patients with advanced liver disease may have falsely elevated PEth concentrations (Sonali FARIAS et al 2018, Alcoholism Clinical & Experimental Research). This test was developed and its performance characteristics determined by [facility]. It has not been cleared or approved by the U.S. Food and Drug Administration. This test was performed in a CLIA-certified laboratory and is intended for clinical purposes. Performed By: [facility] [address] [place] [address] 26031 Global Category Manager: Karthik Farias MD, PhD CLIA Number: [id number] Performed By: #### 1 4979-9 #### ANA M Soler ([id number]) [facility] ([facility]) [address] [place] [address] Laboratory report See Note Normal [facility] Comment on above: Result Comment: Auth orized individuals can access the [employer] Enhanced Report with an [employer] account using the following link. Your local lab can assist you in obtaining the patient report if you don't have a Connect account. [email or web address] Performed By: #### 1 4979-9 #### ANA M Soler ([id number]) [facility] ([facility]) [address] [place] [address] 14816 Phosphatidylethanol 16:0-18:1 1576 ng/mL Normal [facility] Comment on above: Result Comment: PEth 16:0/18:1 (POPEth) Less than 10 ng/mL............Not detected Less than 20 ng/mL............Abstinence or light alcohol consumption 20 - 200 ng/mL................Moderate alcohol consumption Greater than 200 ng/mL........Heavy alcohol consumption or chronic alcohol use (Reference: Ricky Saleh and Davonte Harrison 2018 J. Forensic Sci) Performed By: #### 1 4979-9 #### ANA M Soler ([id number]) [facility] ([facility]) [address] [place] [address] 54475 Phosphatidylethanol 16:0-18:2 1798 ng/mL [facility] Comment on above: Result Comment: Refe rence ranges are not well established. Performed By: #### 1 4979-9 #### ANA M Soler ([id number]) [facility] ([facility]) [address] [place] [address] 49725 PT and aPTT panel Coag (PPP) on 2024 aPTT Coag (PPP) [Time] 28 s Un [facility] INR Coag (PPP) [Relative time] 1.7 {INR} High 0.9 - 1.1 [facility] Interpretation and review of laboratory results Abnormal [facility] PT Coag (PPP) [Time] 18.8 s High [facility] aPTT Coag (PPP) [Time] 28 s Normal 26-36 [facility] Comment on above: Order Comment: The A PTT is no longer used for monitoring Unfractionated Heparin Therapy. For monitoring Heparin Therapy, use the Heparin Assay. Performed By: #### 2 4323-8 #### ANA M Soler ([id number]) [facility] ([facility]) [address] [place] [address] 56803 INR Coag (PPP) [Relative time] 1.7 High 0.9-1.1 [facility] Comment on above: Order Comment: The A PTT is no longer used for monitoring Unfractionated Heparin Therapy. For monitoring Heparin Therapy, use the Heparin Assay. Performed By: #### 2 4323-8 #### ANA M Soler ([id number]) [facility] ([facility]) [address] [place] [address] 84041 PT Coag (PPP) [Time] 18.8 s High 9.8-12.4 [facility] Comment on above: Order Comment: The A PTT is no longer used for monitoring Unfractionated Heparin Therapy. For monitoring Heparin Therapy, use the Heparin Assay. Performed By: #### 2 4323-8 #### ANA M Soler ([id number]) [facility] ([facility]) [address] [place] [address] 74481 Phosphateon 2024 Phosphate [Mass/Vol] 2.6 mg/dL Normal 2.5-4.9 [facility] Comment on above: Performed By: #### 3 040-3 #### ANA M Soler ([id number]) [facility] ([facility]) [address] [place] [address] 10765 Phosphoruson 2024 Phosphate [Mass/Vol] 2.6 mg/dL 2.5 - 4 .9 mg/dL [facility] Work Phone: Protein (Body fld) [Mass/Vol ]on 2024 [facility] Protein, Total, Body Fluidon 2024 Protein (Body fld) [Mass/Vol] 2.0 g/dL Not established [facility] Smooth muscle Abon Smooth muscle Ab IF Ql (S) Positive Abnormal Negative [facility] Comment on above: Performed By: #### D RUBL #### ANA M Soler ([id number]) [facility] ([facility]) [address] [place], [place] [address] TSHon 2024 TSH Qn 3.10 m[IU]/L [facility] TSH Qnon 2024 Interpretation and review of laboratory results Normal [facility] Thyrotropinon 2024 TSH Qn 3.10 m[IU]/L Normal 0.44-3.98 [facility] Comment on above: Order Comment: Venip uncture immediately after or during the administration of Metamizole may lead to falsely low results. Testing should be performed immediately prior to Metamizole dosing. Performed By: #### 3 040-3 #### ANA M Soler ([id number]) [facility] ([facility]) [address] [place], [place] [address] US ABDOMEN LIMITEDon 025 US ABDOMEN LIMITED Interpreted By: Mina Martel and Stevens Alex STUDY: US ABDOMEN LIMITED; 2024 9:15 am INDICATION: Signs/Symptoms:new liver disease. COMPARISON: None. ACCESSION NUMBER(S): [id number] ORDERING CLINICIAN: VERO MACHADO TECHNIQUE: Multiple images of the right upper quadrant were obtained. Underwood scale, color Doppler and spectral Doppler waveform analysis was performed. FINDINGS: The patient declined to complete the examination. The liver appears heterogenous in echotexture with a nodular surface contour. Additionally, there is moderate volume intra-abdominal ascites. IMPRESSION: 1. The patient declined to complete the examination. 2. Cirrhotic morphology of the liver with moderate volume intra-abdominal ascites of the images obtained before the patient terminated the exam. I personally reviewed the images/study and I agree with the findings as stated by Gamal Schulz DO PGY-3. This study was interpreted at [place], [place]. MACRO: None Signed by: Mina España 2024 4:20 PM Dictation workstation: [id number] Normal [facility] Comment on above: Order Comment: Venip uncture immediately after or during the administration of Metamizole may lead to falsely low results. Testing should be performed immediately prior to Metamizole dosing. US Abdomen RUQon 2024 UH MMODAL UH MMODAL [facility] Work Phone: US Abdomen RUQOrdered By: Markel Mcgraw on 2024 [facility] Work Phone: US Abdomen limitedon 025 UH MMODAL UH MMODAL [facility] Work Phone: Radiology Study observation (narrative) [facility] Work Phone: US Abdomen limitedOrdered By : Mina España on 2024 [facility] Work Phone: Urinalysis complete W Reflex Culture panel (U)on 2024 Appearance (U) Turbid Abnormal Clear [facility] Bilirubin (U) [Mass/Vol] OVER (4+) Abnormal NEGATIVE mg/dL [facility] Color (U) Dark-Yellow Light-Yellow , Yellow, Dark-Yellow [facility] Glucose Auto test strip (U) [Mass/Vol] Normal Normal mg/dL [facility] Interpretation and review of laboratory results Abnormal [facility] Ketones (U) [Mass/Vol] 40 (2+) Abnormal NEGAT SÁNCHEZ mg/dL [facility] Leukocyte esterase Auto test strip Ql (U) Negative NEGATIVE [facility] Mucus Auto (Urine sed) [#/Area] 1+ Reference range not established. /LPF [facility] Nitrite Auto test strip Ql (U) Negative NEGATIVE [facility] pH (U) 6.0 [pH] 5.0, 5.5, 6.0, 6.5, 7.0, 7.5, 8.0 [facility] Protein (U) [Mass/Vol] 20 (TRACE) NEGAT SÁNCHEZ, 10 (TRACE), 20 (TRACE) mg/dL [facility] RBC (U) [#/Vol] Negative NEGATIVE mg/dL [facility] RBC Auto (Urine sed) [#/Area] NONE NONE, 1-2, 3-5 /HPF [facility] Specific gravity (U) [Rel density] 1.029 1.005 - 1.035 [facility] Urobilinogen (U) [Mass/Vol] 4 (2+) Abnormal Normal mg/dL [facility] WBC Auto (Urine sed) [#/Area] 1-5 1-5, NONE /HPF [facility] Urine electrolyteson 025 Chloride (U) [Moles/Vol] mmol/L mmol/L [facility] Chloride/Creatinine Ratio [facility] Creatinine (U) [Mass/Vol] 179.6 mg/dL 20.0 - 370.0 mg/dL [facility] Potassium (U) [Moles/Vol] 38 mmol/L [facility] Potassium/Creatinine (U) [Ratio] 21 Not established mmol/g Creat [facility] Sodium (U) [Moles/Vol] mmol/L mmol/L [facility]/Creat[facility] (U) [Ratio] [facility] US ABDOMINAL/PELVIC DUP DELANO COMPLETEon 2024 [facility] US ABDOMINAL/PELVIC DUPLEX COMPLETE Interpreted By: Houston Avalos and Sheng Max STUDY: [facility] US ABDOMINAL/PELVIC DUPLEX COMPLETE; 12/07/2024 12:52 pm INDICATION: Signs/Symptoms:Liver doppler. ,R10.84 Generalized abdominal pain COMPARISON: US ABDOMEN LIMITED 2024, MR INTERPRETATION OF OUTSIDE FILMS 12/04/2024, CT INTERPRETATION OF OUTSIDE FILMS 12/02/2024 ACCESSION NUMBER(S): [id number] ORDERING CLINICIAN: BRIANNA SINGH TECHNIQUE: Multiple color and spectral Doppler images of the liver and spleen were obtained. This examination was interpreted at [facility], [facility]. FINDINGS: DOPPLER EVALUATION: HEPATIC ARTERIES: The following demonstrate patency and appropriate direction of flow: * Main hepatic artery RI 0.56 * Right hepatic artery RI 0.53 * Left hepatic artery RI 0.75 SPLENIC VEIN: Splenic vein calculated velocity of 13.8 cm/s. RIGHT AND LEFT PORTAL VENOUS BRANCHES: Portal vein velocities are calculated as follows: * Main portal vein 14.7 cm/s * Right portal vein anterior branch 14.6 cm/s * Right portal vein posterior branch 1.6 cm/s * Left portal vein 21.2 cm/s HEPATIC VEIN: The main, left and right hepatic veins are patent. The main, left and right hepatic veins demonstrate triphasic flow. IVC appears patent. Incidentally noted recanalization of the paraumbilical vein (image 24-). SPLEEN: The spleen measures 13.9 cm and is grossly unremarkable. OTHER: The partially imaged liver demonstrates nodular contour and diffuse coarse echogenicity similar compared to prior ultrasound consistent with hepatic steatosis and cirrhosis. Small volume free fluid is noted surrounding the perihepatic spaces (image 10-03/12). IMPRESSION: 1. Patent hepatic vasculature, as described. 2. Partially visualized cirrhotic morphology of the liver with findings compatible with portal hypertension including splenomegaly, small perihepatic ascites, slow flow within the portal venous system, and lies paraumbilical vein. I personally reviewed the images/study and I agree with the findings as stated by Dr. Jama Dominguez. This study was interpreted at [place], [place]. MACRO: None Signed by: Houston Avalos 12/07/2024 7:03 PM Dictation workstation: [id number] Normal [facility] ACUTE TOXICOLOGY PANEL, KISHANBailey Yao 12-04-2024 Acetaminophen [Mass/Vol] ug/mL Normal 10.0-30.0 [facility] Comment on above: Performed By: #### D RUBL #### ANA M Soler ([id number]) [facility] ([facility]) [address] [place] [address] Ethanol [Mass/Vol] mg/dL Normal <=10 [facility] Comment on above: Performed By: #### D RUBL #### ANA M Soler ([id number]) [facility] ([facility]) [address] [place] [address] Performed By: #### 1 6362-6 #### ANA M Soler ([id number]) [facility] ([facility]) [address] [place] [address] Salicylates [Mass/Vol] mg/dL Normal 4-20 [facility] Comment on above: Performed By: ###Jonathan SPARROW #### ANA M Soler ([id number]) [facility] ([facility]) [id number] [place] [address] Absolute lymphocyte countOrd ered By: Maria Ines Marcial on 12-04-2024 Lymphocytes Auto (Unsp spec) [#/Vol] 1.11 10*3/uL 0.83-4.51 [facility] Absolute neutrophil countOrd ered By: Maria Ines Ceja on 12-04-2024 Neutrophils (Bld) [#/Vol] 13.4 10*3/uL High 2.0-7.7 [facility] Acute Toxicology Panel, Bloo don 12-04-2024 Acetaminophen [Mass/Vol] ug/mL 10.0 - 30.0 ug/mL [facility] Ethanol [Mass/Vol] mg/dL NINF - 10 mg/dL [facility] Salicylates [Mass/Vol] mg/dL 4 - 20 mg/dL [facility] Acute hepatitis 2000 panel ( S)on 12-04-2024 HAV IgM Ql (S) Non-Reactive Normal Nonreactive [facility] Comment on above: Result Comment: Biot in interference may cause falsely decreased results. Patients taking a Biotin dose of up to 5 mg/day should refrain from taking Biotin for 24 hours before sample collection. Providers may contact their local laboratory for further information. Performed By: #### 3 040-3 #### ANA M Soler ([id number]) [facility] ([facility]) [id number] [place] [address] HBV core IgM Ql (S) Non-Reactive Normal Nonreactive [facility] Comment on above: Result Comment: Resu lts from patients taking biotin supplements or receiving high-dose biotin therapy should be interpreted with caution due to possible interference with this test. Providers may contact their local laboratory for further information. Performed By: #### 3 040-3 #### ANA M Soler ([id number]) [facility] ([facility]) [address] [place] [id number] HBV surface Ag IA Ql Non-Reactive Normal Nonreactive U [facility] Comment on above: Result Comment: Biot in interference may cause falsely decreased results. Patients taking a Biotin dose of up to 5 mg/day should refrain from taking Biotin for 24 hours before sample collection. Providers may contact their local laboratory for further information. Performed By: #### 3 040-3 #### ANA M Soler ([id number]) [facility] ([facility]) [address] [place], [place] [id number] HCV Ab Ql (S) Non-Reactive Normal Nonreactive [facility] Comment on above: Result Comment: Resu lts from patients taking biotin supplements or receiving high-dose biotin therapy should be interpreted with caution due to possible interference with this test. Providers may contact their local laboratory for further information. Performed By: #### 3 040-3 #### ANA M Soler ([id number]) [facility] ([facility]) [address] [place], [place] [id number] [id number] 2024 AFP [Mass/Vol] 6 ng/mL Normal 0-9 [facility] Comment on above: Order Comment: AFP t esting is performed by chemiluminescent immunoassay using the Siemens Guestmob. Values obtained with different analyte methods cannot be used interchangeably. This test can be used as an adjunct in the diagnosis and monitoring of AFP-producing tumors, including non-seminomatous germ cell tumors and hepatocellular carcinomas. Performed By: #### 2 4323-8 #### ANA M Soler ([id number]) [facility] ([facility]) [address] [place] [address] Ammoniaon 12-04-2024 Ammonia (P) [Moles/Vol] 64 umol/L High 16 - 53 umol/L [facility] Ammonia (P) [Moles/Vol] 64 umol/L High 16-53 [facility] Comment on above: Result Comment: MODE RATE HEMOLYSIS DETECTED. The result may be falsely elevated due to hemolysis or other interferents. Clinical correlation is recommended. Repeat testing may be considered. Performed By: #### 1 6362-6 ###Jonathan Soler ([id number]) [facility] ([facility]) [address] [place] [address] Anion gap in Serum or Plasma Ordered By: Maria Ines Ceja on 12-04-2024 Anion gap [Moles/Vol] 21 mmol/L High 5-15 [facility] Automated lymphocyte count a s percentage of total leukocytesOrdered By: Maria Ines Ceja on 12-04-2024 Lymphocytes/100 WBC Auto (Unsp spec) 7.1 % Low 19-41 [facility] BUN/creatinine ratioOrdered By: Maria Ines Ceja on 12-04-2024 Urea nitrogen/Creatinine [Mass ratio] 16.7 mg/mg 10- [facility] Bacteriaon 12-04-2024 Bacteria identified Cx Nom (Bld) Test: Blood Culture Specimen Source: Peripheral Venipuncture Specimen Type: Blood culture Specimen Date: 12/04/20242220 Result Date: 12/09/2024 0000 Result Status: Final result Abnormal: No Resulting Lab: [facility] [address] [place] [address] CULTURE No growth at 4 days - FINAL REPORT [facility] Comment on above: Performed By: #### 1 6362-6 #### ANA M Soler ([id number]) [facility] ([facility]) [address] [place] [address] Basic Metabolic Profile (BMP )on 12-04-2024 BUN/CRE 16.7 RATIO Normal - [facility] Comment on above: Performed By: #### L 500.4050, L501.2450, L100.0100 #### [facility] [address] [place], [address] Calcium [Mass/Vol] 8.7 mg/dL Normal 7.6-11.0 [facility] Comment on above: Performed By: #### L 500.4050, L501.2450, L100.0100 #### [facility] [address] [place], [address] Chloride [Moles/Vol] 88 mmol/L Low 98-108 [facility] Comment on above: Performed By: #### L 500.4050, L501.2450, L100.0100 #### [facility] [address] [place], [address] CO2 [Moles/Vol] 20.1 mmol/L Low 21.0-32.0 [facility] Comment on above: Performed By: #### L 500.4050, L501.2450, L100.0100 #### [facility] [address] [place], [address] Creatinine [Mass/Vol] 0.61 mg/dL Low 0.70-1.20 [facility] Comment on above: Result Comment: Icte lilia present, Results may be affected. Performed By: #### L 500.4050, L501.2450, L100.0100 #### [facility] [address] [place], [address] GAP 21 High 5-15 [facility] Comment on above: Performed By: #### L 500.4050, L501.2450, L100.0100 #### [facility] [address] [place], [address] GFR/1.73 sq M.predicted among non-blacks MDRD (S/P/Bld) [Vol rate/Area] 123 mL/min/{1.73_m2} Normal >60 [facility] Comment on above: Result Comment: mL/m in/1.73m2 CKD-EPI Creatinine Equation (2020) Performed By: #### L 500.4050, L501.2450, L100.0100 #### [facility] [address] [place], [address] Glucose [Mass/Vol] 86 mg/dL Normal 70-99 [facility] Comment on above: Performed By: #### L 500.4050, L501.2450, L100.0100 #### [facility] [address] [place], [address] Potassium [Moles/Vol] 3.2 mmol/L Low 3.3-5.1 [facility] Comment on above: Performed By: #### L 500.4050, L501.2450, L100.0100 #### [facility] [address] [place], [address] Sodium [Moles/Vol] 129 mmol/L Low 133-145 [facility] Comment on above: Performed By: #### L 500.4050, L501.2450, L100.0100 #### [facility] [address] [place], [address] Urea nitrogen [Mass/Vol] 10 mg/dL Normal 4-19 [facility] Comment on above: Performed By: #### L 500.4050, L501.2450, L100.0100 #### [facility] [address] [place], [address] Basophil percentageOrdered B y: Maria Ines Ceja on 12-04-2024 Basophils/100 WBC (Bld) 0.3 % 0-1 [facility] Bilirubin directOrdered By: Maria Ines Ceja on 12-04-2024 Bilirubin.direct [Mass/Vol] 11.30 mg/dL High 0.00-0.30 [facility] Bilirubin, Directon 12-05-19 25 Bilirubin.direct [Mass/Vol] 9.8 mg/dL High 0.0 - 0.3 mg/dL [facility] Bilirubin, totalOrdered By: Maria Ines Ceja on 12-04-2024 Bilirubin [Mass/Vol] 15.40 mg/dL High 0.00-1.30 [facility] Comment on above: CRITICAL RESULTS JOSE LED TO LMCCLAIN BY CASSIE BALES. RESULTS READ BACK BY SAME. 1355 Bilirubin.direct [Mass/Vol]o n 12-04-2024 Interpretation and review of laboratory results Abnormal [facility] Bilirubin.glucuronidated+Seth irubin.albumin boundon 12-04-2024 Bilirubin.direct [Mass/Vol] 9.8 mg/dL High 0.0-0.3 [facility] Comment on above: Performed By: #### 1 968-7 #### ANA M Soler ([id number]) [facility] ([facility]) [address] [place] [address] CBC W Auto Differential pane l (Bld)on 12-04-2024 Basophils (Bld) [#/Vol] 0.03 10*3/uL [facility] Basophils/100 WBC (Bld) 0.2 % 0.0 - 2.0 % [facility] Eosinophils (Bld) [#/Vol] 0.01 10*3/uL [facility] Eosinophils/100 WBC (Bld) 0.1 % 0.0 - 6.0 % [facility] Erythrocyte distribution width (RBC) [Ratio] 15.5 % High 11.5 - 14.5 % [facility] Hematocrit (Bld) [Volume fraction] 32.6 % Low 41.0 - 52.0 % [facility] Hemoglobin (Bld) [Mass/Vol] 12.1 g/dL Low 13.5 - 17.5 g/dL [facility] Immature granulocytes (Bld) [#/Vol] 0.24 10*3/uL [facility] Immature granulocytes/100 WBC (Bld) 1.4 % High 0.0 - 0.9 % [facility] Interpretation and review of laboratory results Abnormal [facility] Lymphocytes (Bld) [#/Vol] 1.11 10*3/uL Low [facility] Lymphocytes/100 WBC (Bld) 6.3 % 13.0 - 44.0 % [facility] MCH (RBC) [Entitic mass] 37.9 pg High 26.0 - 34.0 pg [facility] MCHC (RBC) [Mass/Vol] 37.1 g/dL High 32.0 - 36.0 g/dL [facility] MCV (RBC) [Entitic vol] 102 fL High 80 - 100 fL [facility] Monocytes (Bld) [#/Vol] 1.07 10*3/uL [facility] Monocytes/100 WBC (Bld) 6.0 % 2.0 - 10.0 % [facility] Neutrophils (Bld) [#/Vol] 15.27 10*3/uL [facility] Neutrophils/100 WBC (Bld) 86.0 % 40.0 - 80.0 % [facility] Nucleated RBC/100 WBC (Bld) [Ratio] 0.2 % [facility] Platelets (Bld) [#/Vol] 94 10*3/uL [place] RBC (Bld) [#/Vol] 3.19 10*6/uL [facility] WBC (Bld) [#/Vol] 17.7 10*3/uL [facility] Basophils (Bld) [#/Vol] 0.03 x10*3/uL Normal 0.00-0.10 [facility] Comment on above: Performed By: #### 5 7021-8 #### ANA M Soler ([id number]) [facility] ([facility]) [address] [place] [address] Basophils/100 WBC (Bld) 0.2 % Normal 0.0-2.0 [facility] Comment on above: Performed By: #### 5 7021-8 #### ANA M Soler ([id number]) [facility] ([facility]) [address] [place] [address] Eosinophils (Bld) [#/Vol] 0.01 x10*3/uL Normal 0.00-0.70 [facility] Comment on above: Performed By: #### 5 7021-8 #### ANA M AVINA L ([id number]) [facility] ([facility]) [address] [place] [address] Eosinophils/100 WBC (Bld) 0.1 % Normal 0.0-6.0 [facility] Comment on above: Performed By: #### 5 7021-8 #### ANA M Soler ([id number]) [facility] ([facility]) [address] [place] [address] Erythrocyte distribution width (RBC) [Ratio] 15.5 % High 11.5-14.5 [facility] Comment on above: Performed By: #### 5 7021-8 #### ANA M Soler ([id number]) [facility] ([facility]) [address] [place] [address] Hematocrit (Bld) [Volume fraction] 32.6 % Low 41.0-52.0 [facility] Comment on above: Performed By: #### 5 7021-8 #### ANA M Soler ([id number]) [facility] ([facility]) [address] [place] [address] Hemoglobin (Bld) [Mass/Vol] 12.1 g/dL Low 13.5-17.5 [facility] Comment on above: Performed By: #### 5 7021-8 #### ANA M Soler ([id number]) [facility] ([facility]) [address] [place] [address] Immature granulocytes (Bld) [#/Vol] 0.24 x10*3/uL Normal 0.00-0.70 [facility] Comment on above: Performed By: #### 5 7021-8 #### ANA M Soler ([id number]) [facility] ([facility]) [address] [place] [address] Immature granulocytes/100 WBC (Bld) 1.4 % High 0.0-0.9 [facility] Comment on above: Result Comment: Johanna ture Granulocyte Count (IG) includes promyelocytes, myelocytes and metamyelocytes but does not include bands. Percent differential counts (%) should be interpreted in the context of the absolute cell counts (cells/UL). Performed By: #### 5 7021-8 #### ANA M Soler ([id number]) [facility] ([facility]) [address] [place] [address] Lymphocytes (Bld) [#/Vol] 1.11 x10*3/uL Low 1.20-4.80 [facility] Comment on above: Performed By: #### 5 7021-8 #### ANA M Soler ([id number]) [facility] ([facility]) [address] [place] [address] Lymphocytes/100 WBC (Bld) 6.3 % Normal 13.0-44.0 [facility] Comment on above: Performed By: #### 5 7021-8 #### ANA M Soler ([id number]) [facility] ([facility]) [address] [place] [address] MCH (RBC) [Entitic mass] 37.9 pg High 26.0-34.0 [facility] Comment on above: Performed By: #### 5 7021-8 #### ANA M Soler ([id number]) [facility] ([facility]) [address] [place] [address] MCHC (RBC) [Mass/Vol] 37.1 g/dL High 32.0-36.0 [facility] Comment on above: Performed By: #### 5 7021-8 #### ANA M Soler ([id number]) [facility] ([facility]) [address] [place] [address] MCV (RBC) [Entitic vol] 102 fL High 80-100 [facility] Comment on above: Performed By: #### 5 7021-8 #### ANA M Soler ([id number]) [facility] ([facility]) [address] [place] [address]76 Monocytes (Bld) [#/Vol] 1.07 x10*3/uL High 0.10-1.00 [facility] Comment on above: Performed By: #### 5 7021-8 #### ANA M Soler ([id number]) [facility] ([facility]) [address] [place] [address] 217[address] Monocytes/100 WBC (Bld) 6.0 % Normal 2.0-10.0 [facility] Comment on above: Performed By: #### 5 7021-8 #### ANA M Soler ([id number]) [facility] ([facility]) [address] [place] [address] Neutrophils (Bld) [#/Vol] 15.27 x10*3/uL High 1.20-7.70 [facility] Comment on above: Result Comment: Perc ent differential counts (%) should be interpreted in the context of the absolute cell counts (cells/uL). Performed By: #### 5 7021-8 #### ANA M Soler ([id number]) [facility] ([facility]) [address] [place] [address] Neutrophils/100 WBC (Bld) 86.0 % Normal 40.0-80.0 [facility] Comment on above: Performed By: #### 5 7021-8 #### ANA M Soler ([id number]) [facility] ([facility]) [address] [place] [address] 32680 Nucleated RBC/100 WBC (Bld) [Ratio] 0.2 /100 WBCs High 0.0-0.0 [facility] Comment on above: Performed By: #### 5 7021-8 #### ANA M Soler ([id number]) [facility] ([facility]) [address] [place] [address] Platelets (Bld) [#/Vol] 94 x10*3/uL Low 150-450 [facility] Comment on above: Performed By: #### 5 7021-8 #### ANA M Soler ([id number]) [facility] ([facility]) [address] [place] [address] 55268 RBC (Bld) [#/Vol] 3.19 x10*6/uL Low 4.50-5.90 [facility] Comment on above: Performed By: #### 5 7021-8 #### ANA M Soler ([id number]) [facility] ([facility]) [address] [place] [address]89[address] WBC (Bld) [#/Vol] 17.7 x10*3/uL High 4.4-11.3 [facility] Comment on above: Performed By: #### 5 7021-8 #### ANA M Soler ([id number]) [facility] ([facility]) [address] [place] [address] CBC W/Diff, Automatedon 08-2 Absolute Lymph 1.11 X10 3/uL Normal 0.83-4.51 [facility] Comment on above: Performed By: #### L 500.4050, L501.2450, L100.0100 #### [facility] [address] [place], [address] Absolute Neut 13.4 X10 3/uL High 2.0-7.7 [facility] Comment on above: Performed By: #### L 500.4050, L501.2450, L100.0100 #### [facility] [address] [place], [address] Basophils/100 WBC (Bld) 0.3 % Normal 0-1 [facility] Comment on above: Performed By: #### L 500.4050, L501.2450, L100.0100 #### [facility] [address] [place], [address] Eosinophils/100 WBC (Bld) 0.1 % Normal 0-5 [facility] Comment on above: Performed By: #### L 500.4050, L501.2450, L100.0100 #### [facility] [address] [place], [address] Erythrocyte distribution width (RBC) [Ratio] 16.2 % High 11.6-14.6 [facility] Comment on above: Performed By: #### L 500.4050, L501.2450, L100.0100 #### [facility] [address] [place], [address] Hematocrit (Bld) [Volume fraction] 35.9 % Low 40-54 [facility] Comment on above: Performed By: #### L 500.4050, L501.2450, L100.0100 #### [facility] [address] [place], [address] Hemoglobin (Bld) [Mass/Vol] 13.0 g/dL Normal 13.0-16.5 [facility] Comment on above: Performed By: #### L 500.4050, L501.2450, L100.0100 #### [facility] [address] [place], [address] IG% 0.600 Normal 0.0-0.9 [facility] Comment on above: Result Comment: IG% - Immature Granulocytes (promyelocytes, myelocytes and metamyelocytes) > 1% indicates that a LEFT SHIFT is Present. Performed By: #### L 500.4050, L501.2450, L100.0100 #### [facility] [address] [place], [address] Lymphocytes/100 WBC (Bld) 7.1 % Low 19-41 [facility] Comment on above: Performed By: #### L 500.4050, L501.2450, L100.0100 #### [facility] [address] [place], [address] MCH (RBC) [Entitic mass] 38.7 pg High 27.0-32.0 [facility] Comment on above: Performed By: #### L 500.4050, L501.2450, L100.0100 #### [facility] [address] [place], [address] MCHC (RBC) [Mass/Vol] 36.2 g/dL High 32-36 [facility] Comment on above: Performed By: #### L 500.4050, L501.2450, L100.0100 #### [facility] [address] [place], [address] MCV (RBC) [Entitic vol] 106.8 fL High 80-94 [facility] Comment on above: Performed By: #### L 500.4050, L501.2450, L100.0100 #### [facility] [address] [place], [address] Monocytes/100 WBC (Bld) 5.7 % Normal 0-10 [facility] Comment on above: Performed By: #### L 500.4050, L501.2450, L100.0100 #### [facility] [address] [place], [address] Neutrophils/100 WBC (Bld) 86.2 % High 47-70 [facility] Comment on above: Performed By: #### L 500.4050, L501.2450, L100.0100 #### [facility] [address] [place], [address] Nucleated RBC (Bld) [#/Vol] 0 10*3/uL Normal 0-5 [facility] Comment on above: Performed By: #### L 500.4050, L501.2450, L100.0100 #### [facility] [address] [place], [address] Platelet mean volume (Bld) [Entitic vol] 12.9 fL High 6.2-12.0 [facility] Comment on above: Performed By: #### L 500.4050, L501.2450, L100.0100 #### [facility] [address] [place], [address] Platelets (Bld) [#/Vol] 101 10*3/uL Low 150-450 [facility] Comment on above: Performed By: #### L 500.4050, L501.2450, L100.0100 #### [facility] [address] [place], [address] RBC (Bld) [#/Vol] 3.36 10*6/uL Low 4.6-6.2 [facility] Comment on above: Performed By: #### L 500.4050, L501.2450, L100.0100 #### [facility] [address] [place], [address] RDW SD 63.7 fl High 35.1-43.9 [facility] Comment on above: Performed By: #### L 500.4050, L501.2450, L100.0100 #### [facility] [address] [place], [address] WBC (Bld) [#/Vol] 15.6 10*3/uL High 4.4-11.0 [facility] Comment on above: Performed By: #### L 500.4050, L501.2450, L100.0100 #### [facility] [address] [place], [address] CNOVon 12-04-2024 CNOV Office Visit ([facility]) ----- JOSE PARKER ([id number]) 1980 M Date Time Provider Department 12/04/24 12:15 PM PIEDAD RIBEIRO During your visit today, we recorded the following information about you: Temperature Pulse Respiration Blood pressure 99.8 degrees 140/minute 21/minute 120/78 Weight 79 kg Piedad Ribeiro APRN.MIKA 12/04/2024 12:43 PM Signed [facility] Rockwellian is a 43 year old male. Patient presents with: Eye Problem: Possible SETH pink eye x 2 days HPI Patient presents today with concern for bilateral pinkeye. Patient states that he awoke especially this morning with eyes that were matted shut. Denies any trauma to the eye and does not wear contacts. Denies any nausea vomiting or fever. Review of Systems As above Objective BP 120/78 Pulse (!) 140 Temp 37.7 ?C (99.8 ?F) Resp 21 Wt 79 kg (174 lb 2.6 oz) SpO2 94% BMI 25.72 kg/m? Physical Exam Vitals and nursing note reviewed. Constitutional: General: He is not in acute distress. Appearance: Normal appearance. He is not ill-appearing. HENT: Head: Normocephalic. Mouth/Throat: Mouth: Mucous membranes are moist. Eyes: General: Scleral icterus present. Comments: Mildly injected bilateral eyes with bilateral scleral icterus Cardiovascular: Rate and Rhythm: Regular rhythm. Tachycardia present. Pulmonary: Effort: Pulmonary effort is normal. Breath sounds: Normal breath sounds. Musculoskeletal: General: Normal range of motion. Cervical back: Normal range of motion. Skin: General: Skin is warm and dry. Coloration: Skin is jaundiced. Neurological: General: No focal deficit present. Mental Status: He is alert. Psychiatric: Mood and Affect: Mood normal. Behavior: Behavior normal. {ASSESSMENT/PLAN: 1. Acute bacterial conjunctivitis of both eyes - ICD9: 372.03, ICD10: H10.33 (primary diagnosis) - see medication orders - course and contagiousness issues discussed, including hand washing. - Instructed to call if high fever, development of periorbital redness or swelling, eye pain, visual changes, concerns or if symptoms persist. - POLYMYXIN B SULFATE 10,000 UNIT-TRIMETHOPRIM 1 MG/ML EYE DROPS 2. Tachycardia - ICD9: 785.0, ICD10: R00.0 - Discussed the patient's heart rate with him who notes that he does have a normally high resting heart rate of 100-105 however as of right now he states he feels very anxious regarding his recent appointment with the GI doctor. Patient denying any chest pain or shortness of breath. Patient states that he feels his heart rate will return to normal and does not want any further testing 3. Jaundice - ICD9: 782.4, ICD10: R17 -On initial presentation patient was extremely jaundiced throughout the face extending down into the arms with bilateral scleral icterus. I did discuss this with the patient who noted that he just left his GI doctor's office where a large amount of blood was taken and he is scheduled for multiple tests tomorrow. Patient's history does show alcohol use/abuse. As patient does have ongoing follow-up with test scheduled for tomorrow no further action was needed on this presentation at this time Piedad Ribeiro APRN.MIKA History and Record Review External record(s) reviewed: prior outpatient record and prior labs/imaging. Systemic symptoms present included: Tachycardia Disposition The patient was discharged. Transfer to ED was considered. Reason for not transferring: Patient has close follow-up scheduled as outpatient Procedures Allergies As of Date: 12/04/2024 (No Known Allergies) Date Reviewed: 12/04/2024 Reviewed by: Piedad Ribeiro APRN.CNP - Fully Assessed Reason for Visit: Eye Problem [43] Cmt: Possible SETH pink eye x 2 days Primary Visit Diagnosis:Acute bacterial conjunctivitis of both eyes [H10.33] Other Visit Diagnoses:Tachycardia [R00.0] Jaundice [R17] Order(s):polymyxin B-trimethoprim (POLYTRIM) 10,000 unit- 1 mg/mL ophthalmic solutionUse 1 drop in both eyes every 4 hours for 7 days.Disp: 10 mLRfl: 0 Prescriptions as of 12/04/2024 - polymyxin B-trimethoprim (POLYTRIM) 10,000 unit- 1 mg/mL ophthalmic solution Use 1 drop in both eyes every 4 hours for 7 days. - Zinc Acetate, Oral, 50 mg (zinc) cap Take 1 capsule by mouth once daily. - promethazine (PHENERGAN) 12.5 mg tablet Take 1-2 tablets by mouth every 6 hours as needed for nausea/vomiting. - VITAMIN D2 1,250 mcg (50,000 unit) capsule Take 1 capsule by mouth one time a week. - acetaminophen (TYLENOL) 325 mg tablet Take 650 mg by mouth every 6 hours as needed. - thiamine (VITAMIN B1) 100 mg tablet Take 1 tablet by mouth once daily. Problem List As Of Date 12/04/2024 Noted Resolved SPRAIN SHOULDER/ARM NOS [UUZ1200] 04/26/2006 ALLERGIC RHINITIS NOS [J30.9] 09/12/2006 ESOPHAGEAL REFLUX [K21.9] 03/26/2007 Migraine [G43.909] 11/24/2009 (more content not included)... Normal [facility] CT TRANSFER OF OUTSIDE FILMS on 12-04-2024 CT TRANSFER OF OUTSIDE FILMS Outside images for comparison or treatment purposes, not interpreted by Radiologists. Normal [facility] Carbon dioxide, total [Moles /volume] in Central venous bloodOrdered By: Maria Ines Ceja on 12-04-2024 CO2 [Moles/Vol] 20.1 mmol/L Low 21.0-32.0 [facility] Cell count panel (Body fld)o n 12-04-2024 Clarity (Body fld) Clear Normal Clear [facility] Comment on above: Order Comment: First to runBody Fluid cell count reference ranges have not been established by [facility]. Reference ranges provided are based on published references. Performed By: #### 1 6362-6 #### ANA M Soler ([id number]) [facility] ([facility]) [address] [place] [address] Color (Body fld) Yellow Normal Colorless, Straw, Yellow [facility] Comment on above: Order Comment: First to runBody Fluid cell count reference ranges have not been established by [facility]. Reference ranges provided are based on published references. Performed By: #### 1 6362-6 #### ANA M Soler ([id number]) [facility] ([facility]) [address] [place] [address] RBC Auto (Body fld) [#/Vol] 2000 /uL Normal see comment [facility] Comment on above: Order Comment: First to runBody Fluid cell count reference ranges have not been established by [facility]. Reference ranges provided are based on published references. Result Comment: BAL/ Synovial/Peritoneal/Pericardial/Pleural Fluid Reference Range: 0 cells/uL Performed By: #### 1 6362-6 #### ANA M SCHULTZMOTZER Ryder ([id number]) [facility] ([facility]) [address] [place] [address] 13374 WBC (Body fld) [#/Vol] 0.133 10*3/uL Normal See Commnegrito t [facility] Comment on above: Order Comment: First to runBody Fluid cell count reference ranges have not been established by [facility]. Reference ranges provided are based on published references. Result Comment: BAL/ Synovial/Peritoneal/Pericardial/Pleural Fluid Reference Range: <500 cells/uL Performed By: #### 1 6362-6 #### ANA M Soler ([id number]) [facility] ([facility]) [address] [place] [address] Chloride assayOrdered By: Kahlil Ceja on 12-04-2024 Chloride [Moles/Vol] 88 mmol/L Low 98-108 [facility] Coagulation surface inducedo n 12-04-2024 aPTT Coag (PPP) [Time] 27 s Normal 26-[address] [facility] Comment on above: Order Comment: The A PTT is no longer used for monitoring Unfractionated Heparin Therapy. For monitoring Heparin Therapy, use the Heparin Assay. Performed By: #### 1 4979-9 #### ANA M Soler ([id number]) [facility] ([facility]) [address] [place] [address]773 Coagulation tissue factor in ducedon 12-04-2024 PT Coag (PPP) [Time] 18.7 s High 9.8-12.4 [facility] Comment on above: Performed By: #### 5 902-2 #### ANA M Soler ([id number]) [facility] ([facility]) [address] [place] [address] Comprehensive metabolic 2000 panelon 12-04-2024 Albumin BCP dye [Mass/Vol] 3.7 g/dL 3.4 - 5.0 g/dL [facility] ALP [Catalytic activity/Vol] 196 U/L High 33 - 120 U/L [facility] ALT With P-5'-P [Catalytic activity/Vol] 56 U/L High 10 - 52 U/L [facility] Anion gap [Moles/Vol] 21 mmol/L High 10 - 2 0 mmol/L [facility] AST With P-5'-P [Catalytic activity/Vol] 185 U/L High 9 - 39 U/L [facility] Bilirubin [Mass/Vol] 17.9 mg/dL High 0.0 - 1 .2 mg/dL [facility] Calcium [Mass/Vol] 8.5 mg/dL Low 8.6 - 10. 6 mg/dL [facility] Chloride [Moles/Vol] 88 mmol/L Low 98 - 10 7 mmol/L [facility] CO2 [Moles/Vol] 23 mmol/L 21 - 32 mmol/L [facility] Creatinine [Mass/Vol] 0.77 mg/dL 0.50 - 1.30 mg/dL [facility] eGFR - PINF [facility] Glucose [Mass/Vol] 84 mg/dL 74 - 99 mg/dL [facility] Potassium [Moles/Vol] 5.5 mmol/L High 3.5 - 5.3 mmol/L [facility] Protein [Mass/Vol] 6.5 g/dL 6.4 - 8.2 g/dL [facility] Sodium [Moles/Vol] 126 mmol/L Low 136 - 145 mmol/L [facility] Urea nitrogen [Mass/Vol] 13 mg/dL 6 - 23 mg/dL [facility] Albumin BCP dye [Mass/Vol] 3.7 g/dL Normal 3.4-5.0 [facility] Comment on above: Performed By: #### 2 4323-8 #### ANA M Soler ([id number]) [facility] ([facility]) [address] [place] [address]99 ALP [Catalytic activity/Vol] 196 U/L High 33-120 [facility] Comment on above: Performed By: #### 2 4323-8 #### ANA M Soler ([id number]) [facility] ([facility]) [address] [place] [address]86[address] ALT With P-5'-P [Catalytic activity/Vol] 56 U/L High 10-52 [facility] Comment on above: Result Comment: Kala ents treated with Sulfasalazine may generate falsely decreased results for ALT. Performed By: #### 2 4323-8 #### ANA M Soler ([id number]) [facility] ([facility]) [address] [place] [address] Anion gap [Moles/Vol] 21 mmol/L High 10-20 [facility] Comment on above: Performed By: #### 2 4323-8 #### ANA M Soler ([id number]) [facility] ([facility]) [address] [place] [address] AST With P-5'-P [Catalytic activity/Vol] 185 U/L High 9-39 [facility] Comment on above: Result Comment: MODE RATE HEMOLYSIS DETECTED. The result may be falsely elevated due to hemolysis or other interferents. Clinical correlation is recommended. Repeat testing may be considered. Performed By: #### 2 4323-8 #### ANA M Soler ([id number]) [facility] ([facility]) [address] [place] [address] 20814 Bilirubin [Mass/Vol] 17.9 mg/dL High 0.0-1.2 [facility] Comment on above: Performed By: #### 2 4323-8 #### ANA M Soler ([id number]) [facility] ([facility]) [address] [place] [address] Calcium [Mass/Vol] 8.5 mg/dL Low 8.6-10.6 [facility] Comment on above: Performed By: #### 2 4323-8 #### ANA M Soler ([id number]) [facility] ([facility]) [address] [place] [address]45 Chloride [Moles/Vol] 88 mmol/L Low 98-107 [facility] Comment on above: Performed By: #### 2 4323-8 #### ANA M Soler ([id number]) [facility] ([facility]) [address] [place] [address] CO2 [Moles/Vol] 23 mmol/L Normal 21-32 [facility] Comment on above: Performed By: #### 2 4323-8 #### ANA M Soler ([id number]) [facility] ([facility]) [address] [place] [address] Creatinine [Mass/Vol] 0.77 mg/dL Normal 0.50-1.30 [facility] Comment on above: Performed By: #### 2 432-8 #### ANA M Soler ([id number]) [facility] ([facility]) [address] [place] [address] Glomerular filtration rate >90 Normal >60 [facility] Comment on above: Result Comment: Calc ulations of estimated GFR are performed using the 2020 CKD-EPI Study Refit equation without the race variable for the IDMS-Traceable creatinine methods. https://jasn.asnjournals.org/content//ASN.54431 78074 Performed By: #### 2 4323-8 #### ANA M AVINA L ([id number]) [facility] ([facility]) [address] [place] [address] Glucose [Mass/Vol] 84 mg/dL Normal 74-99 [facility] Comment on above: Performed By: #### 2 4323-8 #### ANA M AVINA L ([id number]) [facility] ([facility]) [address] [place] [address] Potassium [Moles/Vol] 5.5 mmol/L High 3.5-5.3 [facility] Comment on above: Result Comment: MODE RATE HEMOLYSIS DETECTED. The result may be falsely elevated due to hemolysis or other interferents. Clinical correlation is recommended. Repeat testing may be considered. Performed By: #### 2 4323-8 #### ANA M AVINA L ([id number]) [facility] ([facility]) [address] [place] [address] Protein [Mass/Vol] 6.5 g/dL Normal 6.4-8.2 [facility] Comment on above: Performed By: #### 2 4323-8 #### ANA M SCHULTZMOTZER L ([id number]) [facility] ([facility]) [address] [place] [address] Sodium [Moles/Vol] 126 mmol/L Low 136-145 [facility] Comment on above: Performed By: #### 2 4323-8 #### ANA M INMANER L ([id number]) [facility] ([facility]) [address] [place] [address] 46676 Urea nitrogen [Mass/Vol] 13 mg/dL Normal 6- [facility] Comment on above: Performed By: #### 2 4323-8 #### ANA M Soler ([id number]) [facility] ([facility]) [address] [place] [address] 78279 Differential panel (Body fld )on 12-04-2024 Cells Counted Total (Body fld) [#] 100 Normal [facility] Comment on above: Order Comment: First to runBody Fluid cell differential reference ranges have not been established by [facility]. Reference ranges provided are based on published references. Performed By: #### 2 4323-8 #### ANA M Soler ([id number]) [facility] ([facility]) [address] [place] [address] Eosinophils/100 WBC Manual cnt (Body fld) 5 % Normal see comment [facility] Comment on above: Order Comment: First to runBody Fluid cell differential reference ranges have not been established by [facility]. Reference ranges provided are based on published references. Result Comment: BAL Reference Range: <1% Performed By: #### 2 4323-8 #### ANA M Soler ([id number]) [facility] ([facility]) [address] [place] [address] 98982 Lymphocytes/100 WBC Manual cnt (Body fld) 6 % Normal see comment [facility] Comment on above: Order Comment: First to runBody Fluid cell differential reference ranges have not been established by [facility]. Reference ranges provided are based on published references. Result Comment: Syno vial/Peritoneal/Pericardial/Pleural Fluid Reference Range: <75% BAL Reference Range: <10% Performed By: #### 2 4323-8 #### ANA M Soler ([id number]) [facility] ([facility]) [address] [place] [address] 30980 Monocytes+Macrophages/ 100 WBC Manual cnt (Body fld) 46 % Normal see comment [facility] Comment on above: Order Comment: First to runBody Fluid cell differential reference ranges have not been established by [facility]. Reference ranges provided are based on published references. Result Comment: Syno vial/Peritoneal/Pericardial/Pleural Fluid Reference Range: <70% BAL Reference Range: 87-100% Performed By: #### 2 4323-8 #### ANA M Soler ([id number]) [facility] ([facility]) [address] [place] [address] Neutrophils/100 WBC (Body fld) 43 % Normal see comment [facility] Comment on above: Order Comment: First to runBody Fluid cell differential reference ranges have not been established by [facility]. Reference ranges provided are based on published references. Result Comment: Syno vial/Peritoneal/Pericardial/Pleural Fluid Reference Range: <25% BAL Reference Range: <2% Performed By: #### 2 4323-8 #### ANA M Soler ([id number]) [facility] ([facility]) [address] [place] [address] Drugs of abuse screen W Refl ex confirm panel (U)on 12-04-2024 Amphetamines Screen Ql (U) Negative Normal Presumptive Negative [facility] Comment on above: Order Comment: Drug screen results are presumptive and should not be used to assesscompliance with prescribed medication. Definitive confirmatory drug testinghas been added to this sample for any positive screen result and will bereported separately.Toxicology screening results are reported qualitatively. The concentration mustbe greater than or equal to the cutoff to be reported as positive. The concentrationat which the screening test can detect an individual drug or metabolite varies.The absence of expected drug(s) and/or drug metabolite(s) may indicate non-compliance,inappropriate timing of specimen collection relative to drug administration, poor drugabsorption, diluted/adulterated urine, or limitations of testing. For medical purposesonly; not valid for forensic use.Interpretive questions should be directed to the laboratory medical directors. Result Comment: CUTO FF LEVEL: 500 NG/ML Cross-reactivity has been reported with high concentrations of the following drugs: buproprion, chloroquine, chlorpromazine, ephedrine, mephentermine, fenfluramine, phentermine, phenylpropanolamine, pseudoephedrine, and propranolol. Performed By: #### 1 6362-6 #### ANA M Soler ([id number]) [facility] ([facility]) [address] [place] [address] Barbiturates Screen Ql (U) Negative Normal Presumptive Negative [facility] Comment on above: Order Comment: Drug screen results are presumptive and should not be used to assesscompliance with prescribed medication. Definitive confirmatory drug testinghas been added to this sample for any positive screen result and will bereported separately.Toxicology screening results are reported qualitatively. The concentration mustbe greater than or equal to the cutoff to be reported as positive. The concentrationat which the screening test can detect an individual drug or metabolite varies.The absence of expected drug(s) and/or drug metabolite(s) may indicate non-compliance,inappropriate timing of specimen collection relative to drug administration, poor drugabsorption, diluted/adulterated urine, or limitations of testing. For medical purposesonly; not valid for forensic use.Interpretive questions should be directed to the laboratory medical directors. Result Comment: CUTO FF LEVEL: 200 NG/ML Performed By: #### 1 6362-6 #### AAN M Soler ([id number]) [facility] ([facility]) [address] [place] [address] Benzodiazepines Ql (U) Negative Normal Presu mptive Negative [facility] Comment on above: Order Comment: Drug screen results are presumptive and should not be used to assesscompliance with prescribed medication. Definitive confirmatory drug testinghas been added to this sample for any positive screen result and will bereported separately.Toxicology screening results are reported qualitatively. The concentration mustbe greater than or equal to the cutoff to be reported as positive. The concentrationat which the screening test can detect an individual drug or metabolite varies.The absence of expected drug(s) and/or drug metabolite(s) may indicate non-compliance,inappropriate timing of specimen collection relative to drug administration, poor drugabsorption, diluted/adulterated urine, or limitations of testing. For medical purposesonly; not valid for forensic use.Interpretive questions should be directed to the laboratory medical directors. Result Comment: CUTO FF LEVEL: 200 NG/ML Performed By: #### 1 6362-6 #### ANA M AVINA L ([id number]) [facility] ([facility]) [address] [place] [address] Benzoylecgonine Screen Ql (U) Negative Normal Presumptive Negative [facility] Comment on above: Order Comment: Drug screen results are presumptive and should not be used to assesscompliance with prescribed medication. Definitive confirmatory drug testinghas been added to this sample for any positive screen result and will bereported separately.Toxicology screening results are reported qualitatively. The concentration mustbe greater than or equal to the cutoff to be reported as positive. The concentrationat which the screening test can detect an individual drug or metabolite varies.The absence of expected drug(s) and/or drug metabolite(s) may indicate non-compliance,inappropriate timing of specimen collection relative to drug administration, poor drugabsorption, diluted/adulterated urine, or limitations of testing. For medical purposesonly; not valid for forensic use.Interpretive questions should be directed to the laboratory medical directors. Result Comment: CUTO FF LEVEL: 150 NG/ML Performed By: #### 1 6362-6 #### ANA M Soler ([id number]) [facility] ([facility]) [address] [place] [address] Cannabinoids Screen Ql (U) Negative Normal Presumptive Negative [facility] Comment on above: Order Comment: Drug screen results are presumptive and should not be used to assesscompliance with prescribed medication. Definitive confirmatory drug testinghas been added to this sample for any positive screen result and will bereported separately.Toxicology screening results are reported qualitatively. The concentration mustbe greater than or equal to the cutoff to be reported as positive. The concentrationat which the screening test can detect an individual drug or metabolite varies.The absence of expected drug(s) and/or drug metabolite(s) may indicate non-compliance,inappropriate timing of specimen collection relative to drug administration, poor drugabsorption, diluted/adulterated urine, or limitations of testing. For medical purposesonly; not valid for forensic use.Interpretive questions should be directed to the laboratory medical directors. Result Comment: CUTO FF LEVEL: 50 NG/ML Performed By: #### 1 6362-6 #### ANA M Soler ([id number]) [facility] [facility] ([facility]) [address] [place] [address] fentaNYL+Norfentanyl Screen Ql (U) Negative Normal Presumptive Negative [facility] Comment on above: Order Comment: Drug screen results are presumptive and should not be used to assesscompliance with prescribed medication. Definitive confirmatory drug testinghas been added to this sample for any positive screen result and will bereported separately.Toxicology screening results are reported qualitatively. The concentration mustbe greater than or equal to the cutoff to be reported as positive. The concentrationat which the screening test can detect an individual drug or metabolite varies.The absence of expected drug(s) and/or drug metabolite(s) may indicate non-compliance,inappropriate timing of specimen collection relative to drug administration, poor drugabsorption, diluted/adulterated urine, or limitations of testing. For medical purposesonly; not valid for forensic use.Interpretive questions should be directed to the laboratory medical directors. Result Comment: CUTO FF LEVEL: 5 NG/ML Performed By: #### 1 6362-6 #### ANA M Soler ([id number]) [facility] ([facility]) [address] [place] [address] Methadone Screen Ql (U) Negative Normal Presumptive Negative [facility] Comment on above: Order Comment: Drug screen results are presumptive and should not be used to assesscompliance with prescribed medication. Definitive confirmatory drug testinghas been added to this sample for any positive screen result and will bereported separately.Toxicology screening results are reported qualitatively. The concentration mustbe greater than or equal to the cutoff to be reported as positive. The concentrationat which the screening test can detect an individual drug or metabolite varies.The absence of expected drug(s) and/or drug metabolite(s) may indicate non-compliance,inappropriate timing of specimen collection relative to drug administration, poor drugabsorption, diluted/adulterated urine, or limitations of testing. For medical purposesonly; not valid for forensic use.Interpretive questions should be directed to the laboratory medical directors. Result Comment: CUTO FF LEVEL: 150 NG/ML The metabolite P-weiru-gkluczkcrijvpk (LAAM) is not detected by this method in concentrations that would be found in the urine of patients on LAAM therapy. Performed By: #### 1 6362-6 #### ANA M Soler ([id number]) [facility] ([facility]) [address] [place] [address] Opiates Screen Ql (U) Negative Normal Presum ptive Negative [facility] Comment on above: Order Comment: Drug screen results are presumptive and should not be used to assesscompliance with prescribed medication. Definitive confirmatory drug testinghas been added to this sample for any positive screen result and will bereported separately.Toxicology screening results are reported qualitatively. The concentration mustbe greater than or equal to the cutoff to be reported as positive. The concentrationat which the screening test can detect an individual drug or metabolite varies.The absence of expected drug(s) and/or drug metabolite(s) may indicate non-compliance,inappropriate timing of specimen collection relative to drug administration, poor drugabsorption, diluted/adulterated urine, or limitations of testing. For medical purposesonly; not valid for forensic use.Interpretive questions should be directed to the laboratory medical directors. Result Comment: CUTO FF LEVEL: 300 NG/ML The opiate screen does not detect fentanyl, meperidine, or tramadol. Oxycodone is not consistently detected (refer to Oxycodone Screen, Urine result). Performed By: #### 1 6362-6 #### ANA M Soler ([id number]) [facility] ([facility]) [address] [place] [address] oxyCODONE+oxyMORphone Screen Ql (U) Negative Normal Presumptive Negative [facility] Comment on above: Order Comment: Drug screen results are presumptive and should not be used to assesscompliance with prescribed medication. Definitive confirmatory drug testinghas been added to this sample for any positive screen result and will bereported separately.Toxicology screening results are reported qualitatively. The concentration mustbe greater than or equal to the cutoff to be reported as positive. The concentrationat which the screening test can detect an individual drug or metabolite varies.The absence of expected drug(s) and/or drug metabolite(s) may indicate non-compliance,inappropriate timing of specimen collection relative to drug administration, poor drugabsorption, diluted/adulterated urine, or limitations of testing. For medical purposesonly; not valid for forensic use.Interpretive questions should be directed to the laboratory medical directors. Result Comment: CUTO FF LEVEL: 100 NG/ML This test will accurately detect both oxycodone and oxymorphone. Performed By: #### 1 6362-6 #### ANA M Soler ([id number]) [facility] ([facility]) [address] [place] [address] Phencyclidine Ql (U) Negative Normal Presump tive Negative [facility] Comment on above: Order Comment: Drug screen results are presumptive and should not be used to assesscompliance with prescribed medication. Definitive confirmatory drug testinghas been added to this sample for any positive screen result and will bereported separately.Toxicology screening results are reported qualitatively. The concentration mustbe greater than or equal to the cutoff to be reported as positive. The concentrationat which the screening test can detect an individual drug or metabolite varies.The absence of expected drug(s) and/or drug metabolite(s) may indicate non-compliance,inappropriate timing of specimen collection relative to drug administration, poor drugabsorption, diluted/adulterated urine, or limitations of testing. For medical purposesonly; not valid for forensic use.Interpretive questions should be directed to the laboratory medical directors. Result Comment: CUTO FF LEVEL: 25 NG/ML Cross-reactivity has been reported with dextromethorphan. Performed By: #### 1 6362-6 #### ANA M Soler ([id number]) [facility] ([facility]) [id number] [place] [address] 85344 ECG 12-LEADon 12-04-2024 ECG 12-LEAD Ventricular Rate 124 Atrial Rate 124 P-R Interval 156 QRS Duration 74 Q-T Interval 334 QTC Calculation(Bazett) 479 P Wimbledon 35 R Wimbledon -11 T [place]imb[place]on 49 QRS Count 21 Q Onset 218 P Onset 140 P Offset 194 T Offset 385 QTC Fredericia 425 Diagnosis Sinus tachycardia Possible Left atrial enlargement Cannot rule out Anterior infarct , age undetermined Abnormal ECG No previous ECGs available See ED provider note for full interpretation and clinical correlation Confirmed by Rekha Armstrong ([id number]) on 2024 7:08:02 AM Normal [facility] ELECTROLYTE PANEL, URINEon 0 12-04-2024 Chloride (U) [Moles/Vol] mmol/L Normal [facility] Comment on above: Performed By: #### 3 040-3 #### ANA M Soler ([id number]) [facility] ([facility]) [address] [place] [address] 33891 CHLORIDE/CREATININE (MMOL/G) IN URINE Normal [facility] Comment on above: Result Comment: One or more analytes used in this calculation is outside of the analytical measurement range. Calculation cannot be performed. Performed By: #### 3 040-3 #### ANA M Soler ([id number]) [facility] ([facility]) [address] [place] [address] 71050 Creatinine (U) [Mass/Vol] 179.6 mg/dL Normal 20.0-370.0 [facility] Comment on above: Performed By: #### 3 040-3 #### ANA M Soler ([id number]) [facility] ([facility]) [address] [place] [address] 12472 Potassium (U) [Moles/Vol] 38 mmol/L Normal [facility] Comment on above: Performed By: #### 3 040-3 #### ANA M Soler ([id number]) [facility] ([facility]) [address] [place] [address] 70748 Potassium/Creatinine (U) [Ratio] 21 mmol/g Creat Normal Not established [facility] Comment on above: Performed By: #### 3 040-3 #### ANA M Soler ([id number]) [facility] ([facility]) [address] [place] [address] 53025 Sodium (U) [Moles/Vol] mmol/L Normal [facility] Comment on above: Performed By: #### 3 040-3 #### ANA M Soler ([id number]) [facility] ([facility]) [address] [place] [address] 86240 Sodium/Creatinine (U) [Ratio] Normal [facility] Comment on above: Result Comment: One or more analytes used in this calculation is outside of the analytical measurement range. Calculation cannot be performed. Performed By: #### 3 040-3 #### ANA M Soler ([id number]) [facility] ([facility]) [address] [place] [address] 20898 Eosinophil percentageOrdered By: Maria Ines Ceja on 12-04-2024 Eosinophils/100 WBC (Bld) 0.1 % 0-5 [facility] Erythrocyte distribution wid th ratioOrdered By: Maria Ines Ceja on 12-04-2024 Erythrocyte distribution width (RBC) [Ratio] 16.2 % High 11.6-14.6 [facility] Erythrocyte distribution wid th standard deviationOrdered By: Maria Ines Ceja on 12-04-2024 Erythrocyte distribution width (RBC) [Ratio] 63.7 fl High 35.1-43.9 [facility] Ferritinon 12-04-2024 Ferritin [Mass/Vol] 2253 ng/mL High 20-300 [facility] Comment on above: Performed By: #### 2 4323-8 #### ANA M Soler ([id number]) [facility] ([facility]) [address] [place] [address] Gamma glutamyl transferase ( GGT) measurementOrdered By: Maria Ines Ceja on 12-04-2024 Amylase [Catalytic activity/Vol] 1155 U/L High 0-65 [facility] Gas panel (BldV)on Anion gap 4 (BldV) [Moles/Vol] 10.0 mmol/L 10.0 - 25.0 mmol/L [facility] Base excess Calc (BldV) [Moles/Vol] 5.5 mmol/L High -2.0 - 3.0 mmol/L [facility] Calcium.ionized (BldV) [Moles/Vol] 1.05 mmol/L Low 1.10 - 1.33 mmol/L [facility] Chloride (BldV) [Moles/Vol] 90 mmol/L Low 98 - 107 mmol/L [facility] CO2 (BldV) [Partial pressure] 37 mm[Hg] Low [facility] Glucose [Mass/Vol] 90 mg/dL 74 - 99 mg/dL [facility] HCO3 (Bld) [Moles/Vol] 28.9 mmol/L High 22.0 - 26.0 mmol/L [facility] Hematocrit Est (Bld) [Volume fraction] 45.0 % 41.0 - 52.0 % [facility] Hemoglobin (Bld) [Mass/Vol] 15.1 g/dL 13.5 - 17.5 g/dL [facility] Interpretation and review of laboratory results Abnormal [facility] Lactate (BldV) [Moles/Vol] 1.9 mmol/L 0.4 - 2.0 mmol/L [facility] Oxygen (BldV) [Partial pressure] 41 mm[Hg] [facility] Oxygen saturation in Venous blood 61 % 45 - 75 % [facility] Oxyhemoglobin (BldV) [Mass fraction] 58.8 % 45.0 - 75.0 % [facility] pH (BldV) 7.50 [pH] High 7.33 - 7.43 pH [facility] Potassium (BldV) [Moles/Vol] 3.6 mmol/L 3.5 - 5.3 mmol/L [facility] Sodium (BldV) [Moles/Vol] 125 mmol/L Low 136 - 145 mmol/L [facility] Anion gap 4 (BldV) [Moles/Vol] 10.0 mmol/L Normal 10.0-25.0 [facility] Comment on above: Performed By: #### 2 4339-4 #### ANA M Soler ([id number]) [facility] ([facility]) [address] [place] [address] 11735 Base excess Calc (BldV) [Moles/Vol] 5.5 mmol/L High -2.0-3.0 [facility] Comment on above: Performed By: #### 2 4339-4 #### ANA M Soler ([id number]) [facility] ([facility]) [address] [place] [address] 09427 Calcium.ionized (BldV) [Moles/Vol] 1.05 mmol/L Low 1.10-1.33 [facility] Comment on above: Performed By: #### 2 4339-4 #### ANA M Soler ([id number]) [facility] ([facility]) [address] [place] [address] 36163 Chloride (BldV) [Moles/Vol] 90 mmol/L Low 98-107 [facility] Comment on above: Performed By: #### 2 4339-4 #### ANA M Soler ([id number]) [facility] ([facility]) [address] [place] [address] CO2 (BldV) [Partial pressure] 37 mm Hg Low 41-51 [facility] Comment on above: Performed By: #### 2 4339-4 #### ANA M Soler ([id number]) [facility] ([facility]) [address] [place] [address] Glucose [Mass/Vol] 90 mg/dL Normal 74-99 [facility] Comment on above: Performed By: #### 2 4339-4 #### ANA M Soler ([id number]) [facility] ([facility]) [address] [place] [address] 63413 HCO3 (Bld) [Moles/Vol] 28.9 mmol/L High 22.0-26.0 [facility] Comment on above: Performed By: #### 2 4339-4 #### ANA M Soler ([id number]) [facility] ([facility]) [address] [place] [address] 72566 Hematocrit Est (Bld) [Volume fraction] 45.0 % Normal 41.0-52.0 [facility] Comment on above: Performed By: #### 2 4339-4 #### ANA M Soler ([id number]) [facility] ([facility]) [address] [place] [address] 47196 Hemoglobin (Bld) [Mass/Vol] 15.1 g/dL Normal 13.5-17.5 [facility] Comment on above: Performed By: #### 2 4339-4 #### ANA M Soler ([id number]) [facility] ([facility]) [address] [place] [address] 39359 Lactate (BldV) [Moles/Vol] 1.9 mmol/L Normal 0.4-2.0 [facility] Comment on above: Performed By: #### 2 4339-4 #### ANA M Soler ([id number]) [facility] ([facility]) [address] [place] [address] 34622 Oxygen (BldV) [Partial pressure] 41 mm Hg Normal 35-45 [facility] Comment on above: Performed By: #### 2 4339-4 #### ANA M Soler ([id number]) [facility] ([facility]) [address] [place] [address] 74900 Oxygen saturation in Venous blood 61 % Normal 45-75 [facility] Comment on above: Performed By: #### 2 4339-4 #### ANA M Soler ([id number]) [facility] ([facility]) [address] [place] [address] 94400 Oxyhemoglobin (BldV) [Mass fraction] 58.8 % Normal 45.0-75.0 [facility] Comment on above: Performed By: #### 2 4339-4 #### ANA M Soler ([id number]) [facility] ([facility]) [address] [place] [address] 43965 pH (BldV) 7.50 [pH] High 7.33-7.43 [facility] Comment on above: Performed By: #### 2 4339-4 #### ANA M Soler ([id number]) [facility] ([facility]) [address] [place] [address] 60668 Potassium (BldV) [Moles/Vol] 3.6 mmol/L Normal 3.5-5.3 [facility] Comment on above: Performed By: #### 2 4339-4 #### ANA M Soler ([id number]) [facility] ([facility]) [address] [place] [address] 22812 Sodium (BldV) [Moles/Vol] 125 mmol/L Low 136-145 [facility] Comment on above: Performed By: #### 2 4339-4 #### ANA M Soler ([id number]) [facility] ([facility]) [address] [place] [address] 61285 Gastroenterology Visit Repor ton 12-04-2024 Gastroenterology Visit Report [facility] [address] [place] [address] OFFICE VISIT Date of Service: 12/04/24 MR#: [id number] Acct: [id number] Name: JOSE PARKER Rep #: [id number] : 1980 Provider: RAJESH bose Age/Sex: 43/M Location: [facility] Status: Signed Intake Vital Signs 12/02/24 14:47 12/04/24 10:35 Height 5 ft 8 in 5 ft 8 in Weight: 174 lb BMI 26.4 BP 123/84 H Blood Pressure Location Rt brachial Position Sitting Pulse 129 H Pulse Oximetry (%) 92 Oxygen Delivery Method room air Intake Visit Reasons: Hospital FU Chief Complaint: abdominal distension and constipation Tier In Required: No Accompanied by: Self Allergies No Known Allergies Allergy (Verified 12/02/24 16:24) Medications ???Medication ???Instructions ???Recorded ???Confirmed ???Type famotidine 10 mg tablet (Acid 10 mg PO DAILY 12/02/24 12/04/24 H istory Controller) simethicone 250 mg capsule (Gas-X) 250 mg PO DAILY PRN 12/02/24 History gastrointestinal spasms or cramping PFSH Social History Smoking Status: Current every day smoker tobacco type: cigarettes alcohol intake: current alcohol intake frequency: a few times a week Alcohol type: beer HPI HPI Chief Complaint: abdominal distension and constipation Details: ER on 12/02/2024 - for abdominal distension CT A P with IV contrast 12/02/2024 Findings consistent with cirrhosis and portal hypertension, evidenced by irregular hepatic contour, recanalized umbilical vein, varices, and moderate ascites. *Ill-defined 5.2 ??? 3.5 cm region adjacent to the gallbladder fossa-hepatocellular carcinoma or other neoplastic process cannot be excluded. Recommend multiphase contrast-enhanced CT or MRI for further characterization. *No additional acute abnormalities. - constipation - very yellow - no family h/o liver disease - drinks 2-3 beers a week - he is now having a lot of diarrhea, but prior to ER visit he would go 5d without a BM - woke up this morning with what he thinks is pink eye - eye crusted over, almost matter shut this morning - abdominal distension - afraid to eat because it causes bloating HR 120-140's CBC: 8/[id number] WBC 16.7, HGB 13.2, MCV 105, PLT 115 CMP: 12/02/2024 Na 133, K+ 3.8, Creat 0.59, AST 265, ALT 79, ALP 262, T bili 9.42, Albumin 3.9 Lipase: 12/02/2024 elevated 115 - denies any itching - abdominal distension began 10 days ago - was taking IBU, Gas-X, and Famotidine - IBU 400mg couple times a week - denies any recent ATB - denies taking any Tylenol - EtOH: 4.5 ounces 2-3x a week Vodka and soda - reports he saw someone at [facility] for his liver previously in 2021 - reports from -25y/o he would be a heavy drinker, 6 beers a night - lost weight of 10lbs in the past 2 months - c/o nausea with PO intake and emesis - denies any fevers, chills, night sweats - denies any recent viral infections - denies any known family h/o liver disease - denies any h/o IVDU - he does have tattoos - denies ever having a blood transfusion - no muscle aches - urine is a little bit darker - no change in color of stools - he did drink 3/4 bottle of Golytely ROS Const Constitutional: Positive for weight change; No fatigue or fever(s) ENT ENT: No difficulty swallowing Gastro GI: Positive for bloating, change in bowel habits, constipation, diarrhea, excessive flatus, nausea/dyspepsia and vomiting; No abdominal pain, belching, change in stool character, coffee ground emesis, cramping, heartburn, difficulty swallowing, feeling full early, incontinent of stools, Vomiting blood/hematemesis, Blood in stool, loose stools, Black,tarry stools, pain with swallowing or other Musc Musculoskeletal: No joint pain Skin Skin: No yellowing of the eye or itchy eyes Psych Psychiatric: No anxiety and No depression Endo Endocrine: Positive for weight change; No fatigue Aller/Imm Allergy/Immunologic: No itchy eyes Josué/Lymp Hematologic/Lymphatic: Positive for easy bruising; No easy bleeding ROS Narrative Negative for fever, chills, night sweats, pruritus, muscle aches, confusion, or GI bleeding. Exam Const General: cooperative Nutritional Appearance: cachectic Orientation: alert and oriented x3 HENMT Head: normocephalic Ears: hearing grossly normal bilaterally Mouth: moist mucous membranes Eyes Sclera: scleral abnormality Other: Scleral icterus??? Neck Neck: normal visual inspection, full ROM and trachea midline Resp Effort Inspection: normal respiratory effort, able to speak in complete sentences and symmetric chest movement Auscultation: Bilateral: Clear to Auscultation Cardio Rate: regular rate Rhythm: regular rhythm Heart Sounds: S1 normal and (more content not included)... Normal [facility] Glomerular filtration rate ( GFR) estimation/1.73 sq m using serum, plasma, or whole bOrdered By: Maria Ines Ceja on 12-04-2024 GFR/1.73 sq M.predicted among non-blacks MDRD (S/P/Bld) [Vol rate/Area] 123 mL/min/{1.73_m2} >60 [facility] Comment on above: mL/min/1.73m2 CKD-EP I Creatinine Equation (2020) Hematocrit Auto (Bld) [Volum e fraction]Ordered By: Maria Ines Ceja on 12-04-2024 Hematocrit (Bld) [Volume fraction] 35.9 % Low 40-54 [facility] Hemoglobin measurementOrdere d By: Maria Ines Ceja on 12-04-2024 Hemoglobin (Bld) [Mass/Vol] 13.0 g/dL 13.0-16.5 [facility] Hepatitis B Surface Antibody on 12-04-2024 HEP B Surf Ab REAC Normal [facility] Comment on above: Result Comment: <8.5 mIU/mL: Non-Reactive 8.5<= x <11.5 mIU/mL: Indeterminate >=11.5 mIU/mL: Reactive Non Reactive: Inconsistent with immunity less than <10 mIU/mL Reactive: Consistent with immunity greater than or equal to 10 mIU/mL Performed By: #### L 500.4050, L501.2450, L100.0100 #### [facility], [address] Hepatitis C Antibodyon 12-04 Hepatitis C Ab Non-Reactive Normal Nonreactive [facility] Comment on above: Result Comment: Reac tive: Presumptive evidence of antibodies to HCV. Follow CDC recommendations for supplemental testing. Non-Reactive: Antibodies to HCV were not detected; does not exclude the possibility of exposure to HCV Reactive Results are presumptive evidence of antibodies to HCV. Follow CDC recommendations for supplemental testing. Order confirmation testing: HCV Quant by PCR testing - HCVPCR lc#[id number] Non Reactive: < 0.8 Equivocal: >/= 0.8 to < 1.0 Reactive: >/= 1.0 The [facility] requires that a reactive/equivocal HCV antibody result be sent out for confirmation. HCV Quant by PCR testing. Performed By: #### L 500.4050, L501.2450, L100.0100 #### [facility] [address] [place], [address] Immature granulocytes/100 WB C Auto (Bld)Ordered By: Maria Ines Ceja on 12-04-2024 Immature granulocytes/100 WBC (Bld) 0.600 % 0.0-0.9 [facility] Comment on above: IG% - Immature Granu locytes (promyelocytes, myelocytes and metamyelocytes) > 1% indicates that a LEFT SHIFT is Present. International normalized rat io (INR) calculationOrdered By: Maria Ines Ceja on 12-04-2024 INR Coag (Bld) [Relative time] 1.2 {INR} [facility] Iron and Iron binding capaci ty panelon 12-04-2024 Iron [Mass/Vol] 70 ug/dL Normal 35-150 [facility] Comment on above: Performed By: #### 2 4323-8 #### ANA M Soler ([id number]) [facility] ([facility]) [address] [place] [address] 08119 Iron binding capacity [Mass/Vol] 160 ug/dL Low 240-445 [facility] Comment on above: Performed By: #### 2 4323-8 #### ANA M Soler ([id number]) [facility] ([facility]) [address] [place] [address] Iron binding capacity.unsaturated [Mass/Vol] 90 ug/dL Low 110-370 [facility] Comment on above: Performed By: #### 2 4323-8 #### ANA M Soler ([id number]) [facility] ([facility]) [address] [place] [address] 44296 Iron saturation [Mass fraction] 44 % Normal 25-45 [facility] Comment on above: Performed By: #### 2 4323-8 #### ANA M Soler ([id number]) [facility] ([facility]) [address] [place] [address] 35628 L3890.6102on 12-04-2024 HEP B Surf Ag Non-Reactive Normal Nonreactive [facility] Comment on above: Result Comment: Reac tive: Presumptive evidence of HBV. Repeatedly reactive samples must be confirmed using a neutralization test ([employer] HBsAg Confirmatory Test) Non-Reactive: HBsAg not detected; does not exclude the possibility of exposure to HBV Performed By: #### L 500.4050, L501.2450, L100.0100 #### [facility] [address] [place], [address] Laboratory - Chemistry and C hemistry - challengeOrdered By: Maria Ines Ceja on 12-04-2024 AST [Catalytic activity/Vol] 196 U/L High <38 [facility] - Microbiology an d Antimicrobial susceptibilityOrdered By: Maria Ines Ceja on 12-04-2024 HBV surface Ag Ql (S) Non-Reactive Nonreactive [facility] Comment on above: Reactive: Presumptiv e evidence of HBV. Repeatedly reactive samples must be confirmed using a neutralization test ([employer] HBsAg Confirmatory Test)Non-Reactive: HBsAg not detected; does not exclude the possibility of exposure to HBV Lipaseon 12-04-2024 Lipase [Catalytic activity/Vol] 70 U/L 9 - 82 U/L [facility] Lipase [Catalytic activity/V ol]on 12-04-2024 Interpretation and review of laboratory results Normal [facility] Liver Profileon 12-04-2024 Albumin [Mass/Vol] 3.6 g/dL Normal 3.5-5.0 [facility] Comment on above: Performed By: #### L 500.4050, L501.2450, L100.0100 #### [facility] [address] [place], [address] ALK PHOS 227 U/L High 40-129 [facility] Comment on above: Performed By: #### L 500.4050, L501.2450, L100.0100 #### [facility] [address] [place], [address] ALT [Catalytic activity/Vol] 72 U/L High <=46 [facility] Comment on above: Performed By: #### L 500.4050, L501.2450, L100.0100 #### [facility] [address] [place], [address] AST [Catalytic activity/Vol] 196 U/L High <=37 [facility] Comment on above: Performed By: #### L 500.4050, L501.2450, L100.0100 #### [facility] [address] [place], [address] Bilirubin [Mass/Vol] 15.40 mg/dL Invalid Interpretation Code 0.00-1.30 [facility] Comment on above: Result Comment: CRIT ICAL RESULTS CALLED TO [facility] BY CASSIE BALES. RESULTS READ BACK BY SAME. 1355 Performed By: #### L 500.4050, L501.2450, L100.0100 #### [facility] [address] [place], [address] Bilirubin.direct [Mass/Vol] 11.30 mg/dL High 0.00-0.30 [facility] Comment on above: Performed By: #### L 500.4050, L501.2450, L100.0100 #### [facility] [address] [place], [address] Globulin (S) [Mass/Vol] 2.6 g/dL Normal 2.2-4.2 [facility] Comment on above: Performed By: #### L 500.4050, L501.2450, L100.0100 #### [facility] [address] [place], [address] T PROT 6.2 g/dL Normal 5.9-8.4 [facility] Comment on above: Performed By: #### L 500.4050, L501.2450, L100.0100 #### [facility] [address] [place], [address] MCV (mean corpuscular volume ) determinationOrdered By: Maria Ines Ceja on 12-04-2024 MCV (RBC) [Entitic vol] 106.8 fL High 80-94 [facility] MR TRANSFER OF OUTSIDE FILMS on 12-04-2024 MR TRANSFER OF OUTSIDE FILMS Outside images for comparison or treatment purposes, not interpreted by Radiologists. [facility] Comment on above: Order Comment: [id number]; Pao Santos ([email or web address]); [id number] exam changed to Transfer of Outside Films per Dr. Jose Coffey request; MRI Abd WITH and W/O Contras ton 12-04-2024 MRI Abd WITH and W/O Contrast [facility] Imaging Services [address] [place], [place] [address] MRI Abd WITH and W/O Contrast MR#: [id number] Acct: [id number] Name: JOSE PARKER Rep #: [id number] : 1980 M 43 From: Brianna regalado MD PCP: RAJESH Redd Status: REG CLI Study: MRI Abd WITH and W/O Contrast Date of Exam: Exam# [id number] Ordering Dr: Maria Ines Ceja PROCEDURE: MRI ABD WITH AND W/O CONTRAST 12/04/2024 REASON FOR EXAM: ABNORMAL CT, PALPABLE ABDOMINAL MASS TECHNIQUE: MRI ABD WITH AND W/O CONTRAST Multiplanar and multisequence images were obtained. CONTRAST: Clariscan VOLUME: 15 mL COMPARISON: CT scan on 12/02/2024. FINDINGS: Bilateral basilar atelectatic pulmonary changes. Cirrhotic liver. Large number of regenerative nodules replacing the hepatic parenchyma. When correlated to the CT scan performed on 12/02/2024. The suspected liver mass adjacent to gallbladder fossa represents regenerative nodules. No suspicious enhancing nodule. No suspicious enhancing hepatic mass. Changes of portal hypertension. Recanalization of the umbilical vein. Prominent perigastric and periesophageal varices are noted. Moderate ascites is noted. Moderate mesenteric congestion. Diffuse spondylosis. Diffuse thickening of the stomach and the small bowels which is probably secondary to portal hypertension/ascites. Normal gallbladder and extrahepatic biliary system. Normal spleen. Normal pancreas. Normal bilateral adrenal glands. Normal size of the right kidney. There is no right renal mass. There are no right renal calculi. There is no right hydronephrosis. Normal visualized right ureter. Normal size of the left kidney. There is no left renal mass. There are no left renal calculi. There is no left hydronephrosis. Normal visualized left ureter. Normal abdominal aorta. Normal inferior vena cava. Normal retroperitoneum. Normal abdominal wall. MRI/MRI Abd WITH and W/O Contrast IMPRESSION: Bilateral basilar atelectatic pulmonary changes. Cirrhotic liver. Large number of regenerative nodules replacing the hepatic parenchyma. When correlated to the CT scan performed on 12/02/2024. The suspected liver mass adjacent to gallbladder fossa represents regenerative nodules. No suspicious enhancing nodule. No suspicious enhancing hepatic mass. Changes of portal hypertension. Recanalization of the umbilical vein. Prominent perigastric and periesophageal varices are noted. Moderate ascites is noted. Moderate mesenteric congestion. Diffuse spondylosis. Diffuse thickening of the stomach and the small bowels which is probably secondary to portal hypertension/ascites. Reading [facility] CC: RAJESH Ceja; RAJESH Patrick Radar Operator: Signed Normal [facility] Magnesiumon 12-04-2024 Magnesium [Mass/Vol] 1.66 mg/dL 1.60 - 2.40 mg/dL [facility] Magnesium [Mass/Vol] 1.66 mg/dL Normal 1.60-2.40 [facility] Comment on above: Performed By: #### 1 9123-9 #### ANA M Soler ([id number]) [facility] ([facility]) [address] [place] [address] Mean corpuscular hemoglobin (MCH) determinationOrdered By: Maria Ines Ceja on 12-04-2024 MCH (RBC) [Entitic mass] 38.7 pg High 27.0-32.0 [facility] Mean corpuscular hemoglobin concentration (MCHC) determinationOrdered By: Maria Ines Ceja on 12-04-2024 MCHC (RBC) [Mass/Vol] 36.2 g/dL High 32-36 [facility] Mean platelet volume determi nationOrdered By: Maria Ines Ceja on 12-04-2024 Platelet mean volume (Bld) [Entitic vol] 12.9 fL High 6.2-12.0 [facility] Monocyte percentageOrdered B y: Maria Ines Ceja on 12-04-2024 Monocytes/100 WBC (Bld) 5.7 % 0-10 [facility] Mycobacterium spon Mycobacterium sp identified Org specific cx Nom (Unsp spec) Test: AFB Culture/Smear Specimen Source: Ascites Fluid Specimen Type: Fluid Specimen Date: 12/04/20242324 Result Date: 12/24/20241212 Result Status: Preliminary result Resulting Lab: [facility] [address] [place] [address] CULTURE Culture in progress and will be examined weekly. A result will be issued either when positive or after 8 weeks incubation. STAIN No acid fast bacilli seen [facility] Comment on above: Performed By: #### 2 4339-4 #### ANA M Soler ([id number]) [facility] ([facility]) [address] [place] [address] Neutrophil percentageOrdered By: Maria Ines Ceja on 12-04-2024 Neutrophils/100 WBC (Bld) 86.2 % High 47-70 [facility] No Panel Informationon 12-04 Interpretation and review of laboratory results Normal [facility] [place] [place] Interpretation and review of laboratory results Abnormal [facility] Nucleated red blood cell per centageOrdered By: Maria Ines Ceja on 12-04-2024 Nucleated RBC/100 WBC (Bld) [Ratio] 0 % 0-5 [facility] Observationon 12-04-2024 Osmolality (U) [Osmolality] 705 mosm/kg Normal 200-1200 [facility] Comment on above: Performed By: #### 1 6362-6 #### ANA M Soler ([id number]) [facility] ([facility]) [address] [place] [address] Osmolality [Osmolality] 273 mosm/kg Low 280-300 [facility] Comment on above: Performed By: #### 1 6362-6 #### ANA M Soler ([id number]) [facility] ([facility]) [address] [place], [place] [id number] PT Coag (PPP) [Time]on 12-04 INR Coag (PPP) [Relative time] 1.7 {INR} High 0.9 - 1.1 [facility] Interpretation and review of laboratory results Abnormal [facility] INR Coag (PPP) [Relative time] 1.7 High 0.9-1.1 [facility] Comment on above: Performed By: #### 5 902-2 #### ANA M Soler ([id number]) [facility] ([facility]) [address] [place] [address] Platelet countOrdered By: Kahlil Ceja on 12-04-2024 Platelets (Bld) [#/Vol] 101 10*3/uL Low 150-450 [facility] Potassium measurement (mass/ volume)Ordered By: Maria Ines Ceja on 12-04-2024 Potassium (Unsp spec) [Mass/Vol] 3.2 mmol/L Low 3.3-5.1 [facility] Proteinon 12-04-2024 Protein (Body fld) [Mass/Vol] 2.0 g/dL Normal Not established [facility] Comment on above: Order Comment: Third to runThe performance characteristics of this test have been validated on peritoneal/ascites,pleural, pericardial, drain, and liver/pancreatic cyst fluid by the [facility] laboratory. This test has not been approved by the FDA; however, such approval is not necessary. Performed By: #### 1 6362-6 #### ANA M KAILYN Soler ([id number]) [facility] ([facility]) [address] [place] [address] Prothrombin Time w/INRon INR Coag (PPP) [Relative time] 1.2 {INR} Normal [facility] Comment on above: Performed By: #### L 500.4050, L501.2450, L100.0100 #### [facility] [address] [place], [address] PT Coag (PPP) [Time] 15.7 s High 11.7-14.9 [facility] Comment on above: Performed By: #### L 500.4050, L501.2450, L100.0100 #### [facility] [address] [place], [address] Prothrombin timeOrdered By: Maria Ines Ceja on 12-04-2024 PT Coag (PPP) [Time] 15.7 s High 11.7-14.9 [facility] Protime-INRon 12-04-2024 PT Coag (PPP) [Time] 18.7 s High [facility] RBC Auto (Bld) [#/Vol]Ordere d By: Maria Ines Ceja on 12-04-2024 RBC (Bld) [#/Vol] 3.36 10*6/uL Low 4.6-6.2 [facility] Serum creatinine measurement (mass/volume)Ordered By: Maria Ines Ceja on 12-04-2024 Creatinine [Mass/Vol] 0.61 mg/dL Low 0.70-1.20 [facility] Comment on above: Icterus present, Res ults may be affected. Serum globulin measurementOr dered By: Maria Ines Ceja on 12-04-2024 Globulin (S) [Mass/Vol] 2.6 g/dL 2.2-4.2 [facility] Serum glucose measurement (m ass/volume)Ordered By: Maria Ines Ceja on 12-04-2024 Glucose [Mass/Vol] 86 mg/dL 70-99 [facility] Serum hepatitis B virus core antibody detectionOrdered By: Maria Ines Ceja on 12-04-2024 HBV core Ab Ql (S) Negative Negative [facility] Serum hepatitis B virus surf moses antibody detectionOrdered By: Maria Ines Ceja on 12-04-2024 HBV surface Ab Ql (S) REAC [facility] Comment on above: <8.5 mIU/mL: Non-Radha ctive8.5<= x <11.5 mIU/mL: Indeterminate>=11.5 mIU/mL: Reactive Non Reactive: Inconsistent with immunity less than <10 mIU/mL Reactive: Consistent with immunity greater than or equal to 10 mIU/mL Serum or plasma alanine parham otransferase (ALT) measurementOrdered By: Maria Ines Ceja on 12-04-2024 ALT [Catalytic activity/Vol] 72 U/L High <47 [facility] Serum or plasma albumin amy urement (mass/volume)Ordered By: Maria Ines Ceja on 12-04-2024 Albumin [Mass/Vol] 3.6 g/dL 3.5-5.0 [facility] Serum or plasma alkaline alex sphatase measurementOrdered By: Maria Ines Ceja on 12-04-2024 ALP [Catalytic activity/Vol] 227 U/L High 40-129 [facility] Serum or plasma calcium amy urement (mass/volume)Ordered By: Maria Ines Ceja on 12-04-2024 Calcium [Mass/Vol] 8.7 mg/dL 7.6-11.0 [facility] Serum or plasma urea nitroge n measurement (mass/volume)Ordered By: Maria Ines Ceja on 12-04-2024 Urea nitrogen [Mass/Vol] 10 mg/dL 4-19 [facility] Sodium levelOrdered By: Chante Ceja on 12-04-2024 Sodium [Moles/Vol] 129 mmol/L Low 133-145 [facility] Total proteinOrdered By: Caprice Ceja on 12-04-2024 Protein [Mass/Vol] 6.2 g/dL 5.9-8.4 [facility] Triacylglycerol lipaseon Lipase [Catalytic activity/Vol] 70 U/L Normal 9-82 [facility] Comment on above: Order Comment: Venip uncture immediately after or during the administration of Metamizole may lead to falsely low results. Testing should be performed immediately prior to Metamizole dosing. Result Comment: MODE RATE ICTERUS DETECTED. The result may be falsely decreased due to icterus or other interferents. Clinical correlation is recommended. Repeat testing may be considered.I Performed By: #### 3 040-3 #### ANA M Soler ([id number]) [facility] ([facility]) [address] [place] [address] US Abdomen RUQon 12-04-2024 Radiology Study observation (narrative) [facility] Work Phone: US RIGHT UPPER QUADRANTon US RIGHT UPPER QUADRANT Interpreted By: Leena Mcgraw and Bartolomei Aguilar Christopher STUDY: US RIGHT UPPER QUADRANT; 2024 12:07 am INDICATION: Signs/Symptoms:new cholestasis, eval for source of obstruction. COMPARISON: MRI liver 12/04/2024. CT abdomen and pelvis 12/02/2024. ACCESSION NUMBER(S): [id number] ORDERING CLINICIAN: VERO MACHAOD TECHNIQUE: Multiple images of the right upper quadrant were obtained. FINDINGS: LIVER: The liver measures 21.8 cm and appears diffusely heterogeneous with a nodular contour. There is moderate volume perihepatic ascites. GALLBLADDER: Gallbladder is mildly distended with multiple intraluminal echogenic foci and layering echogenic material consistent with gallstones and biliary sludge respectively. Gallbladder wall thickness measures 0.3 cm. Per the resource specialist Corbett's sign is negative. BILE DUCTS: No evidence of intra or extrahepatic biliary dilatation is identified; the common bile duct is prominent but nondilated measuring 0.6 cm. PANCREAS: The pancreas is poorly visualized due to overlying bowel gas. RIGHT KIDNEY: The right kidney measures 12.2 cm in length. The renal cortical echogenicity and thickness are within normal limit. No hydronephrosis. IMPRESSION: 1. Cholelithiasis and gallbladder sludge with no sonographic evidence of acute cholecystitis. 2. Hepatomegaly. Diffuse heterogeneity of the liver with a nodular contour. Please correlate with clinical history of cirrhosis and with LFTs. 3. Moderate amount of abdominal ascites. I personally reviewed the images/study and I agree with the findings as stated. MACRO: None Signed by: Leena Mcgraw 2024 3:24 AM Dictation workstation: [id number] Normal [facility] Urinalysis complete W Reflex Culture panel (U)on 12-04-2024 Appearance (U) Turbid Normal Clear [facility] Comment on above: Order Comment: OVER is reported when the result is greater than the clinically reportable range. Performed By: #### 1 6362-6 #### ANA M Soler ([id number]) [facility] ([facility]) [address] [place] [address] Bilirubin (U) [Mass/Vol] OVER (4+) Abnormal NEGATIVE [facility] Comment on above: Order Comment: OVER is reported when the result is greater than the clinically reportable range. Performed By: #### 1 6362-6 #### ANA M Soler ([id number]) [facility] ([facility]) [address] [place] [address] Color (U) Dark-Yellow Normal Light-Yellow , Yellow, Dark-Yellow [facility] Comment on above: Order Comment: OVER is reported when the result is greater than the clinically reportable range. Performed By: #### 1 6362-6 #### ANA M Soler ([id number]) [facility] ([facility]) [address] [place] [address] Glucose Auto test strip (U) [Mass/Vol] Normal Normal Normal [facility] Comment on above: Order Comment: OVER is reported when the result is greater than the clinically reportable range. Performed By: #### 1 6362-6 #### ANA M AVINA L ([id number]) [facility] ([facility]) [address] [place] [address] Ketones (U) [Mass/Vol] 40 (2+) Abnormal NEGATIVE [facility] on above: Order Comment: OVER is reported when the result is greater than the clinically reportable range. Performed By: #### 1 6362-6 #### ANA M Soler ([id number]) [facility] ([facility]) [address] [place] [address] Leukocyte esterase Auto test strip Ql (U) Negative Normal NEGATIVE [facility] Comment on above: Order Comment: OVER is reported when the result is greater than the clinically reportable range. Performed By: #### 1 6362-6 #### ANA M AVINA L ([id number]) [facility] ([facility]) [address] [place] [address] Mucus Auto (Urine sed) [#/Area] 1+ /LPF Normal Reference range not established. [facility] Comment on above: Performed By: #### 1 6362-6 #### ANA M AVINA L ([id number]) [facility] ([facility]) [address] [place] [address] Nitrite Auto test strip Ql (U) Negative Normal NEGATIVE [facility] Comment on above: Order Comment: OVER is reported when the result is greater than the clinically reportable range. Performed By: #### 1 6362-6 #### ANA M AVINA L ([id number]) [facility] ([facility]) [address] [place] [address] pH (U) 6.0 [pH] Normal 5.0, 5.5, 6.0, 6.5, 7.0, 7.5, 8.0 [facility] Comment on above: Order Comment: OVER is reported when the result is greater than the clinically reportable range. Performed By: #### 1 6362-6 #### ANA M AVINA L ([id number]) [facility] ([facility]) [address] [place] [address] Protein (U) [Mass/Vol] 20 (TRACE) Normal NEGAT SÁNCHEZ, 10 (TRACE), 20 (TRACE) [facility] Comment on above: Order Comment: OVER is reported when the result is greater than the clinically reportable range. Performed By: #### 1 6362-6 #### ANA M BROWNTZER L ([id number]) [facility] ([facility]) [address] [place] [address] RBC (U) [#/Vol] Negative Normal NEGATIVE [facility] Comment on above: Order Comment: OVER is reported when the result is greater than the clinically reportable range. Performed By: #### 1 6362-6 #### ANA M SCHULTZMOTZER L ([id number]) [facility] ([facility]) [address] [place] [address] RBC Auto (Urine sed) [#/Area] NONE Normal NONE, 1-2, 3-5 [facility] Comment on above: Performed By: #### 1 6362-6 #### ANA M AVINA L ([id number]) [facility] ([facility]) [address] [place] [address] Specific gravity (U) [Rel density] 1.029 Normal 1.005-1.035 [facility] Comment on above: Order Comment: OVER is reported when the result is greater than the clinically reportable range. Performed By: #### 1 6362-6 #### ANA M Soler ([id number]) [facility] ([facility]) [address] [place] [address] Urobilinogen (U) [Mass/Vol] 4 (2+) Abnormal Normal [facility] Comment on above: Order Comment: OVER is reported when the result is greater than the clinically reportable range. Result Comment: Some pigments and medications may cause a false positive urobilinogen. Performed By: #### 1 6362-6 #### ANA M SCHULTZMOTZER L ([id number]) [facility] ([facility]) [address] [place] [address] WBC Auto (Urine sed) [#/Area] 1-5 Normal 1-5, NONE [facility] Comment on above: Performed By: #### 1 6362-6 #### ANA M SCHULTZMOTZER L ([id number]) [facility] ([facility]) [address] [place] [address] White blood cell (WBC) count Ordered By: Maria Ines Ceja on 12-04-2024 WBC (Bld) [#/Vol] 15.6 10*3/uL High 4.4-11.0 [facility] aPTTon 12-04-2024 aPTT Coag (PPP) [Time] 27 s [facility] aPTT Coag (PPP) [Time]on Interpretation and review of laboratory results [facility] Absolute lymphocyte countOrd ered By: Taj Nieves on 12-02-2024 Lymphocytes Auto (Unsp spec) [#/Vol] 1.63 10*3/uL 0.83-4.51 [facility] Absolute neutrophil countOrd ered By: Taj Nieves on 12-02-2024 Neutrophils (Bld) [#/Vol] 13.2 10*3/uL High 2.0-7.7 [facility] Anion gap in Serum or Plasma Ordered By: Taj Nieves on 12-02-2024 Anion gap [Moles/Vol] 18 mmol/L High 5-15 [facility] Automated lymphocyte count a s percentage of total leukocytesOrdered By: Taj Nieves on 12-02-2024 Lymphocytes/100 WBC Auto (Unsp spec) 10.1 % Low 19-41 [facility] BUN/creatinine ratioOrdered By: Taj Nieves on 12-02-2024 Urea nitrogen/Creatinine [Mass ratio] 17.3 mg/mg 10-20 [facility] Basophil percentageOrdered B y: Taj Nieves on 12-02-2024 Basophils/100 WBC (Bld) 0.2 % 0-1 [facility] Bilirubin, totalOrdered By: Taj Nieves on 12-02-2024 Bilirubin [Mass/Vol] 9.42 mg/dL High 0.00-1.30 [facility] CBC W/Diff, Automatedon 11-14 Absolute Lymph 1.63 X10 3/uL Normal 0.83-4.51 [facility] Comment on above: Performed By: #### L 500.4050, L501.2450, L100.0100 #### [facility] [place], [address] Absolute Neut 13.2 X10 3/uL High 2.0-7.7 [facility] Comment on above: Performed By: #### L 500.4050, L501.2450, L100.0100 #### [facility] [address] [place], [address] Basophils/100 WBC (Bld) 0.2 % Normal 0-1 [facility] Comment on above: Performed By: #### L 500.4050, L501.2450, L100.0100 #### [facility] [address] [place], [address] Eosinophils/100 WBC (Bld) 0.1 % Normal 0-5 [facility] Comment on above: Performed By: #### L 500.4050, L501.2450, L100.0100 #### [facility] [address] [place], [address] Erythrocyte distribution width (RBC) [Ratio] 15.9 % High 11.6-14.6 [facility] Comment on above: Performed By: #### L 500.4050, L501.2450, L100.0100 #### [facility] [address] [place], [address] Hematocrit (Bld) [Volume fraction] 36.8 % Low 40-54 [facility] Comment on above: Performed By: #### L 500.4050, L501.2450, L100.0100 #### [facility] [address] [place], [address] Hemoglobin (Bld) [Mass/Vol] 13.2 g/dL Normal 13.0-16.5 [facility] [facility] Comment on above: Performed By: #### L 500.4050, L501.2450, L100.0100 #### [facility] [address] [place], [address] IG% 0.400 Normal 0.0-0.9 [facility] Comment on above: Result Comment: IG% - Immature Granulocytes (promyelocytes, myelocytes and metamyelocytes) > 1% indicates that a LEFT SHIFT is Present. Performed By: #### L 500.4050, L501.2450, L100.0100 #### [facility] [address] [place], [id number] Lymphocytes/100 WBC (Bld) 10.1 % Low 19-41 [facility] Comment on above: Performed By: #### L 500.4050, L501.2450, L100.0100 #### [facility] [address] [place], [id number] MCH (RBC) [Entitic mass] 37.7 pg High 27.0-32.0 [facility] Comment on above: Performed By: #### L 500.4050, L501.2450, L100.0100 #### [facility] [address] [place], [address] MCHC (RBC) [Mass/Vol] 35.9 g/dL Normal 32-36 [facility] Comment on above: Performed By: #### L 500.4050, L501.2450, L100.0100 #### [facility] [address] [place], [id number] MCV (RBC) [Entitic vol] 105.1 fL High 80-94 [facility] Comment on above: Performed By: #### L 500.4050, L501.2450, L100.0100 #### [facility] [address] [place], [id number] Monocytes/100 WBC (Bld) 7.4 % Normal 0-10 [facility] Comment on above: Performed By: #### L 500.4050, L501.2450, L100.0100 #### [facility] [address] [place], [id number] Neutrophils/100 WBC (Bld) 81.8 % High 47-70 [facility] Comment on above: Performed By: #### L 500.4050, L501.2450, L100.0100 #### [facility] [address] [place], [id number] Nucleated RBC (Bld) [#/Vol] 0 10*3/uL Normal 0-5 [facility] Comment on above: Performed By: #### L 500.4050, L501.2450, L100.0100 #### [facility] [address] [place], [id number] Platelet mean volume (Bld) [Entitic vol] 12.2 fL High 6.2-12.0 [facility] Comment on above: Performed By: #### L 500.4050, L501.2450, L100.0100 #### [facility] [address] [place], [address] Platelets (Bld) [#/Vol] 115 10*3/uL Low 150-450 [facility] Comment on above: Performed By: #### L 500.4050, L501.2450, L100.0100 #### [facility] [address] [place], [id number] RBC (Bld) [#/Vol] 3.50 10*6/uL Low 4.6-6.2 [facility] Comment on above: Performed By: #### L 500.4050, L501.2450, L100.0100 #### [facility] [address] [place], [id number] RDW SD 61.8 fl High 35.1-43.9 [facility] Comment on above: Performed By: #### L 500.4050, L501.2450, L100.0100 #### [facility] [address] [place], [id number] WBC (Bld) [#/Vol] 16.2 10*3/uL High 4.4-11.0 [facility] Comment on above: Performed By: #### L 500.4050, L501.2450, L100.0100 #### [facility] [address] [place], [address] CT Chest, Abd, Pel w/Contras ton 12-02-2024 CT Chest, Abd, Pel w/Contrast [facility] Imaging Services [address] [place], [place] [address] CT Chest, Abd, Pel w/Contrast MR#: [id number] Acct: [id number] Name: JOSE PARKER Rep #: [id number] : 1980 M 43 From: Aleks Thomason MD PCP: RAJESH Redd Status: [facility] Study: CT Chest, Abd, Pel w/Contrast Date of Exam: Exam# [id number] Ordering Dr: Taj Nieves MD PROCEDURE: CT CHEST, ABD, PEL W/CONTRAST 12/02/2024 REASON FOR EXAM: ASCITES ?? TECHNIQUE: Chest, abdomen and pelvis CT with intravenous contrast. Coronal and Sagittal reconstruction series were provided. One or more dose reduction techniques were used (e.g., Automated exposure control, adjustment of the mA and/or kV according to patient size, use of iterative reconstruction technique. CONTRAST: Isovue 370 VOLUME: 98mL RADIATION DOSE SUMMARY: CTDlvol: 9+ 12+ 7 mGy DLP: 939 mGycm COMPARISON: None. FINDINGS: CT CHEST: The peripheral soft tissues are unremarkable. Degenerative changes of the spine. The thyroid is unremarkable. Normal caliber esophagus. No mediastinal lymphadenopathy. The heart is normal in size. Right lower lobe density with attenuation similar to paraspinal musculature with air bronchograms in a pattern favoring pneumonia CT ABDOMEN/PELVIS: The liver is enlarged, heterogeneously hypodense, with an irregular surface contour consistent with chronic liver disease. There is a focal ill-defined region adjacent to the gallbladder fossa measuring 5.2 ??? 3.5 cm, which protrudes slightly outward; a mass cannot be excluded. The parenchyma is heterogeneous with centrally located hyperdensity and linear striations, likely reflecting altered hepatic architecture. There is recanalization of the umbilical vein and tortuous upper abdominal vessels suspicious for varices. Moderate ascites is present. The gallbladder, pancreas, spleen, adrenals, and kidneys are unremarkable, with symmetric renal enhancement and no hydronephrosis. The urinary bladder and prostate are normal. The bowel is normal in caliber. The peripheral soft tissues are unremarkable. Degenerative changes are noted in the spine. CT/CT Chest, Abd, Pel w/Contrast IMPRESSION: *Findings consistent with cirrhosis and portal hypertension, evidenced by irregular hepatic contour, recanalized umbilical vein, varices, and moderate ascites. *Ill-defined 5.2 ??? 3.5 cm region adjacent to the gallbladder fossa-hepatocellular carcinoma or other neoplastic process cannot be excluded. Recommend multiphase contrast-enhanced CT or MRI for further characterization. *No additional acute abnormalities. Reading Location: [facility] CC: RAJESH Patrick; Dr. Taj Nieves MD Radar Operator: Signed Normal [facility] Carbon dioxide, total [Moles /volume] in Central venous bloodOrdered By: Taj Nieves on 12-02-2024 CO2 [Moles/Vol] 22.1 mmol/L 21.0-32.0 [facility] Chloride assayOrdered By: Kahlil Nieves on 12-02-2024 Chloride [Moles/Vol] 93 mmol/L Low 98-108 [facility] Comprehensive Metabolic Prof ilon 12-02-2024 Albumin [Mass/Vol] 3.9 g/dL Normal 3.5-5.0 [facility] Comment on above: Performed By: #### L 500.4050, L501.2450, L100.0100 #### [facility] [address] [place], [address] Albumin/Globulin [Mass ratio] 1.4 {ratio} Normal 0.9-2.4 [facility] Comment on above: Performed By: #### L 500.4050, L501.2450, L100.0100 #### [facility] [address] [place], [address] ALK PHOS 262 U/L High 40-129 [facility] Comment on above: Performed By: #### L 500.4050, L501.2450, L100.0100 #### [facility] [address] [place], [address] ALT [Catalytic activity/Vol] 79 U/L High <=46 [facility] Comment on above: Performed By: #### L 500.4050, L501.2450, L100.0100 #### [facility] [address] [place], [address] AST [Catalytic activity/Vol] 265 U/L High <=37 [facility] Comment on above: Performed By: #### L 500.4050, L501.2450, L100.0100 #### [facility] [address] [place], [address] Bilirubin [Mass/Vol] 9.42 mg/dL High 0.00-1.30 [facility] Comment on above: Performed By: #### L 500.4050, L501.2450, L100.0100 #### [facility] [address] [place], [address] BUN/CRE 17.3 RATIO Normal 10-20 [facility] Comment on above: Performed By: #### L 500.4050, L501.2450, L100.0100 #### [facility] [address] [place], [address] Calcium [Mass/Vol] 9.3 mg/dL Normal 7.6-11.0 [facility] Comment on above: Performed By: #### L 500.4050, L501.2450, L100.0100 #### [facility] [address] [place], [address] Chloride [Moles/Vol] 93 mmol/L Low 98-108 [facility] Comment on above: Performed By: #### L 500.4050, L501.2450, L100.0100 #### [facility] [address] [place], [address] CO2 [Moles/Vol] 22.1 mmol/L Normal 21.0-32.0 [facility] Comment on above: Performed By: #### L 500.4050, L501.2450, L100.0100 #### [facility] [address] [place], [address] Creatinine [Mass/Vol] 0.59 mg/dL Low 0.70-1.20 [facility] Comment on above: Result Comment: Icte lilia present, Results may be affected. Performed By: #### L 500.4050, L501.2450, L100.0100 #### [facility] [address] [place], [address] ECRCL 156.19 ml/min Normal 50-250 [facility] Comment on above: Performed By: #### L 500.4050, L501.2450, L100.0100 #### [facility] [address] [place], [address] GAP 18 High 5-15 [facility] Comment on above: Performed By: #### L 500.4050, L501.2450, L100.0100 #### [facility] [address] [place], [address] GFR/1.73 sq M.predicted among non-blacks MDRD (S/P/Bld) [Vol rate/Area] 124 mL/min/{1.73_m2} Normal >60 [facility] Comment on above: Result Comment: mL/m in/1.73m2 CKD-EPI Creatinine Equation (2020) Performed By: #### L 500.4050, L501.2450, L100.0100 #### [facility] [address] [place], [address] Globulin (S) [Mass/Vol] 2.8 g/dL Normal 2.2-4.2 [facility] Comment on above: Performed By: #### L 500.4050, L501.2450, L100.0100 #### [facility] [address] [place], [address] Glucose [Mass/Vol] 120 mg/dL High 70-99 [facility] Comment on above: Performed By: #### L 500.4050, L501.2450, L100.0100 #### [facility] [address] [place], [address] Potassium [Moles/Vol] 3.8 mmol/L Normal 3.3-5.1 [facility] Comment on above: Performed By: #### L 500.4050, L501.2450, L100.0100 #### [facility] [address] [place], [address] Sodium [Moles/Vol] 133 mmol/L Normal 133-145 [facility] Comment on above: Performed By: #### L 500.4050, L501.2450, L100.0100 #### [facility] [address] [place], [address] T PROT 6.7 g/dL Normal 5.9-8.4 [facility] Comment on above: Performed By: #### L 500.4050, L501.2450, L100.0100 #### [facility] [address] [place], [address] Urea nitrogen [Mass/Vol] 10 mg/dL Normal 4-19 [facility] Comment on above: Performed By: #### L 500.4050, L501.2450, L100.0100 #### [facility] [address] [place], [address] Emergency Department Summary on 12-02-2024 Emergency Department Summary [facility] Medical Records Department [address] [place] [address] Emergency Department Summary 12/02/24 MR#: [id number] Acct: [id number] Name: JOSE PARKER Rep #: [id number] : 1980 43 From: Taj Nieves MD PCP: RAJESH Redd Status:DEP ER Location: ED HPI HPI - GI History of Present Illness Chief Complaint: Edema Detail of Chief Complaint: Possible abdominal ascites. Informant: patient Abdominal Pain/Flank Pain Onset: Days Context: Gradual Onset Timing: Continuous Quality: Cramping Location: Diffuse Current Severity: Mild Maximum Severity: Mild Worsened by: Nothing Relieved by: Nothing Nausea/Vomiting/Emesis GI Symptom: Negative for Nausea Diarrhea/Melena/Hematoche [place] GI Symptom: Positive for - (Constipation for about a week. Has had some bowel movement.); Negative for Diarrhea, Melena or Hematochezia Onset: Days Severity: Mild Associated Symptoms Associated Symptoms: Negative for Dysuria, Frequency, Hematuria or Urgency Narrative Narrative: 43-year-old male history of fatty liver. Prior evaluation in [place] and was told he did not have cirrhosis at that time but that was a year or 2 ago. States has had abdominal swelling the last several days to a week. Also had constipation. His concern is possible ascites. Said some mild nausea. No vomiting. No diarrhea. No fever. No dysuria. No urinary retention. Says urinating well. Denies any significant weight loss. 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 Abdominal bloating. Cramping. Constitutional Constitutional ED: Denies chills or fever(s) ENT ENT ED: Denies ear pain Cardiovascular Cardiovascular: Denies chest pain Respiratory/Chest Respiratory/Chest: Denies cough Gastrointestinal Gastrointestinal: Reports abdominal pain, constipation and nausea; Denies diarrhea, melena or vomiting Genitourinary Genitourinary ED: Denies dysuria, hematuria or urinary frequency Musculoskeletal Musculoskeletal: Denies arthralgias, back pain or myalgias Integumentary Denies abscess or Abrasions Neurologic Neurologic: Denies headache(s) Psychiatric Psychiatric: Denies anxiety Endocrine Endocrinology: Denies polydipsia Hematologic/Lymphatic Hematologic/Lymphatic: Denies easy bleeding or easy bruising Allergic/Immunologic Allergic/Immunologic ED: Denies mouth swelling, tongue swelling or urticaria EXAM Physical Exam Narrative Exam Narrative: 43-year-old male sitting upright in bed vital signs stable afebrile. He is little tachycardic. He seems anxious. H EENT exam pupils round react light. Moist mucous membranes. Neck nontender no JVD. Lungs clear to auscultation bilaterally. Heart tachycardic 115 no murmur. Chest wall and ribs nontender. Abdomen mildly bloated. But no peritoneal signs. No localizing tenderness. No hernia no mass. No obstruction no pulsatile mass. I do not really feel an ascites wave. Moving all 4 extremities. Nontender no edema. Normal range of motion. Normal strength. Back nontender. Neurologically he is awake and alert. Answering questions following commands. No focal motor deficits. Const Vital Signs: 12/02/24 14:47 12/02/24 14:53 Temperature 98.6 F Temperature Source Temporal Pulse Rate 130 H Respiratory Rate 18 Respiratory Effort Normal Respiratory Pattern Normal Blood Pressure 153/97 H Blood Pressure Mean 115 Pulse Ox 94 Oxygen Delivery Method Room Air Positive well nourished and well developed; Negative for cachectic, contractures or unkempt General Appearance ED: well developed and NAD; Negative for unkempt, cachectic, contractures or pallor Nutritional Appearance: Negative for cachectic HEENT Reports moist mucous membranes normocephalic and atraumatic Eyes PERRL and EOMs intact bilaterally General Eye ED: Negative for pale conjunctiva or scleral icterus Neck no lymphadenopathy, supple and no JVD Resp normal respiratory effort and clear to auscultation bilaterally Cardio regular rhythm, S1 normal heart sound, S2 normal heart sound and no murmurs; Negative for regular rate Rate: tachycardic GI non-tender, non-distended and no masses Inspection: Negative for a (more content not included)... Normal [facility] Eosinophil percentageOrdered By: Taj Nieves on 12-02-2024 Eosinophils/100 WBC (Bld) 0.1 % 0-5 [facility] Erythrocyte distribution wid th ratioOrdered By: Taj Nieves on 12-02-2024 Erythrocyte distribution width (RBC) [Ratio] 15.9 % High 11.6-14.6 [facility] Erythrocyte distribution wid th standard deviationOrdered By: Taj Nieves on 12-02-2024 Erythrocyte distribution width (RBC) [Ratio] 61.8 fl High 35.1-43.9 [facility] Glomerular filtration rate ( GFR) estimation/1.73 sq m using serum, plasma, or whole bOrdered By: Taj Nieves on 12-02-2024 GFR/1.73 sq M.predicted among non-blacks MDRD (S/P/Bld) [Vol rate/Area] 124 mL/min/{1.73_m2} >60 [facility] Comment on above: mL/min/1.73m2 CKD-EP I Creatinine Equation (2020) Hematocrit Auto (Bld) [Volum e fraction]Ordered By: Taj Nieves on 12-02-2024 Hematocrit (Bld) [Volume fraction] 36.8 % Low 40-54 [facility] Hemoglobin measurementOrdere d By: Taj Nieves on 12-02-2024 Hemoglobin (Bld) [Mass/Vol] 13.2 g/dL 13.0-16.5 [facility] Immature granulocytes/100 WB C Auto (Bld)Ordered By: Taj Nieves on 12-02-2024 Immature granulocytes/100 WBC (Bld) 0.400 % 0.0-0.9 [facility] Comment on above: IG% - Immature Granu locytes (promyelocytes, myelocytes and metamyelocytes) > 1% indicates that a LEFT SHIFT is Present. Laboratory - Chemistry and C hemistry - challengeOrdered By: Taj Nieves on 12-02-2024 AST [Catalytic activity/Vol] 265 U/L High <38 [facility] Lipaseon 12-02-2024 Lipase [Catalytic activity/Vol] 115 U/L High 13-75 [facility] Comment on above: Result Comment: Christa zarate note: LIPASE revised reference range effective 22. New Lipase methodology. Expected to produce lower values than the previous assay method. NEW Reference Range: 13 - 75 U/L Performed By: #### L 500.4050, L501.2450, L100.0100 #### [facility] [address] [place], [address] Lipase measurementOrdered By : Taj Nieves on 12-02-2024 Lipase [Catalytic activity/Vol] 115 U/L High 13-75 [facility] Comment on above: Please note:LIPASE r evised reference range effective 22. New Lipase methodology. Expected to produce lower values than the previous assay method. NEW Reference Range: 13 - 75 U/L MCV (mean corpuscular volume ) determinationOrdered By: Taj Nieves on 12-02-2024 MCV (RBC) [Entitic vol] 105.1 fL High 80-94 [facility] Mean corpuscular hemoglobin (MCH) determinationOrdered By: Taj Nieves on 12-02-2024 MCH (RBC) [Entitic mass] 37.7 pg High 27.0-32.0 [facility] Mean corpuscular hemoglobin concentration (MCHC) determinationOrdered By: Taj Nieves on 12-02-2024 MCHC (RBC) [Mass/Vol] 35.9 g/dL 32-36 [facility] Mean platelet volume determi nationOrdered By: Taj Nieves on 12-02-2024 Platelet mean volume (Bld) [Entitic vol] 12.2 fL High 6.2-12.0 [facility] Monocyte percentageOrdered B y: Taj Nieves on 12-02-2024 Monocytes/100 WBC (Bld) 7.4 % 0-10 [facility] Neutrophil percentageOrdered By: Taj Nieves on 12-02-2024 Neutrophils/100 WBC (Bld) 81.8 % High 47-70 [facility] Nucleated red blood cell per centageOrdered By: Taj Nieves on 12-02-2024 Nucleated RBC/100 WBC (Bld) [Ratio] 0 % 0-5 [facility] Platelet countOrdered By: Kahlil Nieves on 12-02-2024 Platelets (Bld) [#/Vol] 115 10*3/uL Low 150-450 [facility] Potassium measurement (mass/ volume)Ordered By: Taj Nieves on 12-02-2024 Potassium (Unsp spec) [Mass/Vol] 3.8 mmol/L 3.3-5.1 [facility] RBC Auto (Bld) [#/Vol]Ordere d By: Taj Nieves on 12-02-2024 RBC (Bld) [#/Vol] 3.50 10*6/uL Low 4.6-6.2 [facility] Serum creatinine measurement (mass/volume)Ordered By: Tja Nieves on 12-02-2024 Creatinine [Mass/Vol] 0.59 mg/dL Low 0.70-1.20 [facility] Comment on above: Icterus present, Res ults may be affected. Serum globulin measurementOr dered By: Taj Nieves on 12-02-2024 Globulin (S) [Mass/Vol] 2.8 g/dL 2.2-4.2 [facility] Serum glucose measurement (m ass/volume)Ordered By: Taj Nieves on 12-02-2024 Glucose [Mass/Vol] 120 mg/dL High 70-99 [facility] Serum or plasma alanine parham otransferase (ALT) measurementOrdered By: Taj Nieves on 12-02-2024 ALT [Catalytic activity/Vol] 79 U/L High <47 [facility] Serum or plasma albumin amy urement (mass/volume)Ordered By: Taj Nieves on 12-02-2024 Albumin [Mass/Vol] 3.9 g/dL 3.5-5.0 [facility] Serum or plasma albumin/glob ulin mass ratioOrdered By: Taj Nieves on 12-02-2024 Albumin/Globulin [Mass ratio] 1.4 {ratio} 0.9-2.4 [facility] Serum or plasma alkaline alex sphatase measurementOrdered By: Taj Nieves on 12-02-2024 ALP [Catalytic activity/Vol] 262 U/L High 40-129 [facility] Serum or plasma calcium amy urement (mass/volume)Ordered By: Taj Nieves on 12-02-2024 Calcium [Mass/Vol] 9.3 mg/dL 7.6-11.0 [facility] Serum or plasma urea nitroge n measurement (mass/volume)Ordered By: Taj Nieves on 12-02-2024 Urea nitrogen [Mass/Vol] 10 mg/dL 4-19 [facility] Sodium levelOrdered By: Taj Nieves on 12-02-2024 Sodium [Moles/Vol] 133 mmol/L 133-145 [facility] Total proteinOrdered By: Tanner Nieves on 12-02-2024 Protein [Mass/Vol] 6.7 g/dL 5.9-8.4 [facility] White blood cell (WBC) count Ordered By: Taj Nieves on 12-02-2024 WBC (Bld) [#/Vol] 16.2 10*3/uL High 4.4-11.0 [facility] Urgent Care Visit Reporton 0 09-04-2024 Urgent Care Visit Report [facility] [address], [address] [place] [address] OFFICE VISIT Date of Service: 09/04/24 MR#: [id number] Acct: [id number] Name: JOSE PARKER Rep #: [id number] : 1980 Provider: YUAN Acuña Age/Sex: 43/M Location: [facility] Status: Signed Intake Vital Signs 03/05/15 18:31 Height 5 ft 8 in Intake Visit Reasons: PE/NON DOT/PHYSICAL/[place] Allergies No Known Allergies Allergy (Verified 03/05/15 19:10) PFSH Social History (Updated 12/05/17 @ 14:35 by Akash BOLDEN, YUAN) Smoking Status: Current every day smoker HPI HPI Details: JOSE PARKER, is a 43 M who presents to the office today for preemployment physical. Please see corresponding scanned documents with today's date. 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 Hematocrit (Bld) [Volume fraction] 42.9 % 39.0 - 51.0 % [facility] Hemoglobin (Bld) [Mass/Vol] 14.2 g/dL 13.0 - 17.0 g/dL [facility] MCH (RBC) [Entitic mass] 36.4 pg High 26.0 - 34.[address] [facility] MCHC (RBC) [Mass/Vol] 33.1 g/dL 30.5 - 36.0 g/dL [facility] MCV (RBC) [Entitic vol] 110.0 fL High 80.0 - 100.[address] [facility] Nucleated RBC (Bld) [#/Vol] <0.01 k/uL [facility] Platelet mean volume (Bld) [Entitic vol] 11.8 fL 9.0 - 12.[address] [facility] Platelets (Bld) [#/Vol] 156 10*3/uL 150 - 400 k/uL [facility] RBC (Bld) [#/Vol] 3.90 10*6/uL Low 4.20 - 6.0 0 m/uL [facility] WBC (Bld) [#/Vol] 11.42 10*3/uL High 3.70 - 11 .00 k/uL [facility] Comprehensive metabolic 2000 panelon 02-14-2022 Albumin [Mass/Vol] 4.2 g/dL 3.9 - 4.9 g/dL [facility] ALP [Catalytic activity/Vol] 194 U/L High 38 - 113 U/L [facility] ALT [Catalytic activity/Vol] 32 U/L 10 - 54 U/L [facility] Anion gap [Moles/Vol] 12 mmol/L 9 - 18 mmol/L [facility] AST [Catalytic activity/Vol] 75 U/L High 14 - 40 U/L [facility] Bilirubin [Mass/Vol] 1.2 mg/dL 0.2 - 1 .3 mg/dL [facility] Calcium [Mass/Vol] 9.3 mg/dL 8.5 - 10. 2 mg/dL [facility] Chloride [Moles/Vol] 104 mmol/L 97 - 10 5 mmol/L [facility] CO2 [Moles/Vol] 22 mmol/L 22 - 30 mmol/L [facility] Creatinine [Mass/Vol] 0.65 mg/dL Low 0.73 - 1.22 mg/dL [facility] Estimated Glomerular Filtration Rate 121 mL/min/1.73m >=60 mL/min/1.73m [facility] Glucose [Mass/Vol] 91 mg/dL 74 - 99 mg/dL [facility] Potassium [Moles/Vol] 4.5 mmol/L 3.7 - 5.1 mmol/L [facility] Protein [Mass/Vol] 7.0 g/dL 6.3 - 8.0 g/dL [facility] Sodium [Moles/Vol] 138 mmol/L 136 - 144 mmol/L [facility] Urea nitrogen [Mass/Vol] 9 mg/dL 9 - 24 mg/dL [facility] US ABD LIVER VASCULARon 11-0 [facility] US DOPPLER COMPLETEon 2021 [facility] VIBRATION CONTROLLED TRANSIE NT ELASTOGRAPHY (POC)on 02-14-2022 [facility] VITAMIN B12 BLOODon 02-15-20 Cobalamin (Vitamin B12) [Mass/Vol] 508 pg/mL 232 - 1,245 pg/mL [facility] VITAMIN D 25 HYDROXYon 02-14 25-hydroxyvitamin D3 [Mass/Vol] 9.7 ng/mL Low 31.0 - 80.0 ng/mL [facility] No Panel Informationon 01-04 [facility] AMYLASE BLDon 01-03-2022 Amylase [Catalytic activity/Vol] 22 U/L Low 30 - 104 U/L [facility] C-PEPTIDE BLDon 01-03-2022 C peptide [Mass/Vol] 0.90 ng/mL 0.81 - 3.85 ng/mL [facility] C-REACTIVE PROTEIN (CRP)on 0 01-03-2022 CRP [Mass/Vol] 1.1 mg/dL High <0.9 mg/dL [facility] CBC W Auto Differential pane l (Bld)on 01-03-2022 Abs Immature Gran 0.04 k/uL <0.10 k/uL [facility] Basophils (Bld) [#/Vol] 0.04 10*3/uL <0.11 k/uL [facility] Basophils/100 WBC (Bld) 0.3 % [facility] CBC W Differential panel, method unspecified (Bld) Done [facility] Differential cell count method Nom (Bld) Auto [facility] Eosinophils (Bld) [#/Vol] 0.10 10*3/uL <0.46 k/uL [facility] Eosinophils/100 WBC (Bld) 0.7 % [facility] Erythrocyte distribution width (RBC) [Ratio] 14.1 % 11.5 - 15.0 % [facility] Hematocrit (Bld) [Volume fraction] 42.9 % 39.0 - 51.0 % [facility] Hemoglobin (Bld) [Mass/Vol] 14.8 g/dL 13.0 - 17.0 g/dL [facility] Immature Gran % 0.3 % [facility] Lymphocytes (Bld) [#/Vol] 2.07 10*3/uL 1.00 - 4.00 k/uL [facility] Lymphocytes/100 WBC (Bld) 14.6 % [facility] MCH (RBC) [Entitic mass] 38.8 pg High 26.0 - 34.[address] [facility] MCHC (RBC) [Mass/Vol] 34.5 g/dL 30.5 - 36.0 g/dL [facility] MCV (RBC) [Entitic vol] 112.6 fL High 80.0 - 100.[address] [facility] Monocytes (Bld) [#/Vol] 1.28 10*3/uL High <0.87 k/uL [facility] Monocytes/100 WBC (Bld) 9.0 % [facility] Neutrophils (Bld) [#/Vol] 10.68 10*3/uL High 1.45 - 7.50 k/uL [facility] Neutrophils/100 WBC (Bld) 75.1 % [facility] Nucleated RBC (Bld) [#/Vol] <0.01 k/uL [facility] Nucleated RBC/100 WBC (Bld) [Ratio] 0.0 /[address] [facility] Platelet Estimate Decreased [facility] Platelet mean volume (Bld) [Entitic vol] 12.9 fL High 9.0 - 12.[address] [facility] Platelets (Bld) [#/Vol] 134 10*3/uL Low 150 - 400 k/uL [facility] Polychromasia LM Ql (Bld) Slight [facility] RBC (Bld) [#/Vol] 3.81 10*6/uL Low 4.20 - 6.0 0 m/uL [facility] Red Cell Morph Reviewed: unremarkable [facility] WBC (Bld) [#/Vol] 14.21 10*3/uL High 3.70 - 11 .00 k/uL [facility] Comprehensive metabolic 2000 panelon 01-03-2022 Albumin [Mass/Vol] 3.7 g/dL Low 3.9 - 4.9 g/dL [facility] ALP [Catalytic activity/Vol] 291 U/L High 38 - 113 U/L [facility] ALT [Catalytic activity/Vol] 40 U/L 10 - 54 U/L [facility] Anion gap [Moles/Vol] 12 mmol/L 9 - 18 mmol/L [facility] AST [Catalytic activity/Vol] 123 U/L High 14 - 40 U/L [facility] Bilirubin [Mass/Vol] 1.2 mg/dL 0.2 - 1 .3 mg/dL [facility] Calcium [Mass/Vol] 9.2 mg/dL 8.5 - 10. 2 mg/dL [facility] Chloride [Moles/Vol] 101 mmol/L 97 - 10 5 mmol/L [facility] CO2 [Moles/Vol] 25 mmol/L 22 - 30 mmol/L [facility] Creatinine [Mass/Vol] 0.63 mg/dL Low 0.73 - 1.22 mg/dL [facility] Estimated Glomerular Filtration Rate 123 mL/min/1.73m >=60 mL/min/1.73m [facility] Glucose [Mass/Vol] 82 mg/dL 74 - 99 mg/dL [facility] Potassium [Moles/Vol] 3.9 mmol/L 3.7 - 5.1 mmol/L [facility] Protein [Mass/Vol] 6.9 g/dL 6.3 - 8.0 g/dL [facility] Sodium [Moles/Vol] 138 mmol/L 136 - 144 mmol/L [facility] Urea nitrogen [Mass/Vol] 5 mg/dL Low 9 - 24 mg/dL [facility] ESR Westergren method (Bld) [Velocity]on 01-03-2022 ESR (Bld) [Velocity] 26 mm/h High 0 - 15 mm/hr [facility] FERRITIN [facility] 01-03-2022 Ferritin [Mass/Vol] 2773.0 ng/mL High 30.3 - 5 65.7 ng/mL [facility] Iron and Iron binding capaci ty panelon 01-03-2022 Iron [Mass/Vol] 93 ug/dL 41 - 186 ug/dL [facility] Iron binding capacity [Mass/Vol] 182 ug/dL Low 232 - 386 ug/dL [facility] Iron/TIBC [Molar ratio] 51.1 % 15.0 - 57.0 % [facility] LIPASE [facility] 01-03-2022 Lipase [Catalytic activity/Vol] 49 U/L 16 - 61 U/L [facility] T3 [facility] 01-03-2022 T3 [Mass/Vol] 131 ng/dL 79 - 165 ng/dL [facility] T4 FREE/FREE THYROXon 2021 Free T4 [Mass/Vol] 1.4 ng/dL 0.9 - 1.7 ng/dL [facility] TSH [facility] 01-03-2022 TSH Qn 2.700 m[IU]/L 0.270 - 4.200 mIU/L [facility] Urinalysis complete panel (U )on 01-03-2022 Bilirubin Ql (U) Negative Negative [facility] Clarity (Unsp spec) Cloudy Abnormal Clear [facility] Color (U) [place] Abnormal Yellow [facility] Glucose Test strip (U) [Mass/Vol] Negative Negative [facility] Hemoglobin Ql (U) Negative Negative [facility] Ketones Ql (U) Negative Negative [facility] Leukocyte esterase Test strip Ql (U) Negative Negative [facility] Nitrite Ql (U) Negative Negative [facility] pH (U) 6.0 [pH] 5.0 - 8.0 [facility] Protein (U) [Mass/Vol] 1+ Abnormal Negative [facility] RBC LM.HPF (Urine sed) [#/Area] 0-3 /HPF 0-3 /HPF [facility] Specific gravity (U) [Rel density] 1.024 1.005 - 1.030 [facility] Urobilinogen Ql (U) 1+ Abnormal Negative [facility] WBC LM.HPF (Urine sed) [#/Area] 0-5 /HPF 0-5 /HPF [facility] XR CHEST 2V FRONTAL/LATon [facility] XR Chest PA and Lateralon IMPRESSION: Mild hazy opacity at the left base, atelectasis versus small focus of bronchopneumonia in the appropriate clinical setting. Radar Operator: PSCB Transcribe Date/Time: Jan 02 2022 3:44P Dictated by : JONH SONG MD This examination was interpreted and the report reviewed and electronically signed by: JONH SONG MD on Jan 02 2022 3:46PM [facility] DIVISION OF RADIOLOGY * * *Final Report* * * DATE OF EXAM: Jan 02 2022 3:39PM WOX 5291 - XR CHEST 2V FRONTAL/LAT / PROCEDURE REASON: multiple diagnoses * * * * Physician Interpretation * * * * EXAMINATION: CHEST RADIOGRAPH (2 VIEW FRONTAL & LATERAL) CLINICAL HISTORY: Nausea MQ: XC2_6 EXAM DATE/TIME: 01/02/2022 3:39 PM COMPARISON: No relevant prior studies available. RESULT: Lines, tubes, and devices: None. Lungs and pleura: Small hazy opacity at the left base. Cardiomediastinal silhouette: Normal cardiomediastinal silhouette. Bones and soft tissues: No acute abnormality. Remote healed left lower lateral rib fracture. DIVISION OF RADIOLOGY Provider, [facility] - 01/02/2022 * * *Final Report* * * DATE OF EXAM: Jan 02 2022 3:39PM WOX 5291 - XR CHEST 2V FRONTAL/LAT / PROCEDURE REASON: multiple diagnoses * * * * Physician Interpretation * * * * EXAMINATION: CHEST RADIOGRAPH (2 VIEW FRONTAL & LATERAL) CLINICAL HISTORY: Nausea MQ: XC2_6 EXAM DATE/TIME: 01/02/2022 3:39 PM COMPARISON: No relevant prior studies available. RESULT: Lines, tubes, and devices: None. Lungs and pleura: Small hazy opacity at the left base. Cardiomediastinal silhouette: Normal cardiomediastinal silhouette. Bones and soft tissues: No acute abnormality. Remote healed left lower lateral rib fracture. IMPRESSION IMPRESSION: Mild hazy opacity at the left base, atelectasis versus small focus of bronchopneumonia in the appropriate clinical setting. Radar Operator: [facility] Transcribe Date/Time: Jan 02 2022 3:44P Dictated by : JONH SONG MD This examination was interpreted and the report reviewed and electronically signed by: JONH SONG MD on Jan 02 2022 3:46PM EST [facility] Radiology Study observation (narrative) [facility] XR Chest PA and LateralOrder ed By: Ccf Provider on 01-02-2022 [facility] XR Shoulder - right 3 Viewso n 11-04-2020 IMPRESSION: Acromioclavicular osteoarthrosis. No acute osseous abnormality identified. Radar Operator: [facility] Transcribe Date/Time: Nov 04 2020 9:39A Dictated by : TRES CHURCHILL MD This examination was interpreted and the report reviewed and electronically signed by: TRES CHURCHILL MD on Nov 04 2020 9:40AM [facility] DIVISION OF RADIOLOGY * * *Final Report* * * DATE OF EXAM: Nov 04 2020 9:36AM WOX 5253 - XR SHLDR >/=3V AP/FRANK AP/OTHR RT / PROCEDURE REASON: Acute pain of right shoulder * * * * Physician Interpretation * * * * Right shoulder radiographs HISTORY: 39 years old Clinical information: Acute pain of right shoulder 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 RESULT: Findings: Glenohumeral joint space is maintained. Mild narrowing of the chromic clavicular joint. Subacromial osteophyte formation. No fracture or dislocation. 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 RESULT: Findings: Glenohumeral joint space is maintained. Mild narrowing of the chromic clavicular joint. Subacromial osteophyte formation. No fracture or dislocation. IMPRESSION IMPRESSION: Acromioclavicular osteoarthrosis. No acute osseous abnormality identified. Radar Operator: PSCB Transcribe Date/Time: Nov 04 2020 9:39A Dictated by : TRES CHURCHILL MD This examination was interpreted and the report reviewed and electronically signed by: TRES CHURCHILL MD on Nov 04 2020 9:40AM EST [facility] Radiology Study observation (narrative) [facility] XR Shoulder - right 3 ViewsO rdered By: Ccf Provider on 11-04-2020 [facility] DDI VIBRATION CONTROLLED TRA NSIENT ELASTOGRAPHY (VCTE) [facility] Vital Signs Date Time Vital Sign Value Performing Clinician Facility 12-12-2024 05:08-0400 Body temperature 99 [degF] Vero Machado MD Work Phone: [facility] 12-12-2024 05:08-0400 Diastolic blood pressure 56 mm[Hg] Vero Machado MD Work Phone: [facility] 12-12-2024 05:08-0400 Heart rate 79 /min Vero Machado MD Work Phone: [facility] 12-12-2024 05:08-0400 Respiratory rate 18 /min Vero Machado MD Work Phone: [facility] 12-12-2024 05:08-0400 SaO2% (BldA) [Mass fraction] 92 % Vero Machado MD Work Phone: [facility] 12-12-2024 05:08-0400 Systolic blood pressure 98 mm[Hg] Vero Machado MD Work Phone: [facility] 2024 11:16-0400 Body temperature 37.0 Vero Machado MD Work Phone: [facility] 2024 10:48-0400 Body temperature 37.0 degrees Celsius [facility] Comment on above: Performed By: #### [id number] #### ANA M Soler ([id number]) [facility] ([facility]) [address] [place] [address] 2024 03:21-0400 Body height 172.2 cm Vero Machado MD Work Phone: [facility] 2024 03:21-0400 Body mass index (BMI) [Ratio] 26.62 kg/m2 Vero Machado MD Work Phone: [facility] 2024 03:21-0400 Body weight 78.93 kg Vero Machado MD Work Phone: [facility] 12-04-2024 22:19-0400 Body temperature 37.0 Vero Machado MD Work Phone: [facility] 12-04-2024 22:17-0400 Body temperature 37.0 degrees Celsius [facility] Comment on above: Result Comment: NOTE: Patient Results ar e Not Corrected for Temperature Performed By: #### 2 4339-4 #### ANA M Soler ([id number]) [facility] ([facility]) [address] [place] [address] 12-04-2024 12:21-0400 Body mass index (BMI) [Ratio] 25.72 kg/m2 Piedad Ribeiro APRN.CNP Work Phone: [facility] 12-04-2024 12:21-0400 Body temperature 99.81 [degF] Piedad Moomaw LOOSE [employer] P[employer]ER.FURNITURE MOVER HELPER Work Phone: [facility] 12-04-2024 12:21-0400 Body weight 79 kg Piedad Moomaw [employer]OOSE HAND PACKER.FURNITURE MOVER HELPER Work Phone: [facility] 12-04-2024 12:21-0400 Diastolic blood pressure 78 mm[Hg] Piedad Moomaw LOOSE HAND PACKER.FURNITURE MOVER HELPER Work Phone: [facility] 12-04-2024 12:21-0400 Heart rate 140 /min Piedad Moomaw LOOSE HAND PACKER.FURNITURE MOVER HELPER Work Phone: [facility] 12-04-2024 12:21-0400 Respiratory rate 21 /min Piedad Moomaw LOOSE HAND PACKER.FURNITURE MOVER HELPER Work Phone: [facility] 12-04-2024 12:21-0400 SaO2% (BldA) [Mass fraction] 94 % Piedad Moomaw [employer]OOSE HAND PACKER.FURNITURE MOVER HELPER Work Phone: [facility] 12-04-2024 12:21-0400 Systolic blood pressure 120 mm[Hg] Piedad Moomaw LOOSE HAND PACKER.FURNITURE MOVER HELPER Work Phone: [facility] 12-04-2024 10:35-0400 Body height 172.[address] Zac Byers MD Work Phone: [facility] 12-04-2024 10:35-0400 Body mass index (BMI) [Ratio] 26.4 kg/m2 Dr. Zac Byers MD Work Phone: [facility] 12-04-2024 10:35-0400 Body weight 78.[address] Zac Byers MD Work Phone: [facility] 12-04-2024 10:35-0400 Diastolic blood pressure 84 mm[Hg] Dr. Zac Byers MD Work Phone: [facility] 12-04-2024 10:35-0400 Heart rate 129 /min Dr. Zac Byers MD Work Phone: [facility] 12-04-2024 10:35-0400 SaO2% (BldA) [Mass fraction] 92 % Dr. Zac Byers MD Work Phone: 1(939)947-927450 [place] [address] 12-04-2024 10:35-0400 Systolic blood pressure 123 mm[Hg] Dr. Zac Byers MD Work Phone: 6(245)160-030950 [place] [address] 12-02-2024 17:09-0400 Body temperature 97.9 [degF] Dr. Zac Byers MD Work Phone: 5(538)019-716650 [place] [address] 12-02-2024 17:09-0400 Diastolic blood pressure 87 mm[Hg] Dr. Zac Byers MD Work Phone: 7(865)635-267350 [place] [address] 12-02-2024 17:09-0400 Heart rate 114 /min Dr. Zac Byers MD Work Phone: 2(827)393-657150 [place] [address] 12-02-2024 17:09-0400 Respiratory rate 16 /min Dr. Zac Byers MD Work Phone: 8(916)960-791150 [place] [address] 12-02-2024 17:09-0400 SaO2% (BldA) [Mass fraction] 989 % Dr. Zac Byers MD Work Phone: 9(482)147-029750 [place] [address] 12-02-2024 17:09-0400 Systolic blood pressure 145 mm[Hg] Dr. Zac Byers MD Work Phone: 1(158)917-444150 [place] [address] 12-02-2024 14:47-0400 Body height 172.[address] Zac Byers MD Work Phone: 1(842)434-757650 [place] [address] 12-02-2024 14:47-0400 Body mass index (BMI) [Ratio] 26.6 kg/m2 Dr. Zac Byers MD Work Phone: 1(190)233-436650 [place] [address] 12-02-2024 14:47-0400 Body weight 79.[address] Zac Byers MD Work Phone: 0(883)465-374250 [place] [address] 02-14-2022 12:38-0400 Body height 175.3 cm Noemi Russell MD Work Phone: [facility] 02-14-2022 12:38-0400 Body weight 78.11 kg Noemi Russell MD Work Phone: [facility] 02-14-2022 12:38-0400 Diastolic blood pressure 78 mm[Hg] Noemi Russell MD Work Phone: [facility] 02-14-2022 12:38-0400 Heart rate 108 /min Noemi Russell MD Work Phone: [facility] 02-14-2022 12:38-0400 SaO2% (BldA) [Mass fraction] 100 % Noemi Russell MD Work Phone: [facility] 02-14-2022 12:38-0400 Systolic blood pressure 122 mm[Hg] Noemi Russell MD Work Phone: [facility] 01-09-2022 11:13-0400 Body height 175.3 cm Aleks Najera MD Work Phone: [facility] 01-09-2022 11:13-0400 Body temperature 97.59 [degF] Aleks Najera MD Work Phone: [facility] 01-09-2022 11:13-0400 Body weight 74.75 kg Aleks Najera MD Work Phone: [facility] 01-09-2022 11:13-0400 Diastolic blood pressure 60 mm[Hg] Aleks Najera MD Work Phone: [facility] 01-09-2022 11:13-0400 Heart rate 96 /min Aleks Najera MD Work Phone: [facility] 01-09-2022 11:13-0400 SaO2% (BldA) [Mass fraction] 98 % Aleks Najera MD Work Phone: [facility] 01-09-2022 11:13-0400 Systolic blood pressure 102 mm[Hg] Aleks Najera MD Work Phone: [facility] 01-02-2022 13:51-0400 Body height 176.9 cm Carmita Keron LOOSE HAND PACKER.FURNITURE MOVER HELPER Work Phone: [facility] 01-02-2022 13:51-0400 Body weight 75.39 kg Carmita Keron LOOSE HAND PACKER.FURNITURE MOVER HELPER Work Phone: [facility] 01-02-2022 13:51-0400 Diastolic blood pressure 76 mm[Hg] Carmita Keron LOOSE HAND PACKER.FURNITURE MOVER HELPER Work Phone: [facility] 01-02-2022 13:51-0400 Heart rate 109 /min Carmita Keron LOOSE HAND PACKER.FURNITURE MOVER HELPER Work Phone: [facility] 01-02-2022 13:51-0400 SaO2% (BldA) [Mass fraction] 94 % Carmita Keron LOOSE HAND PACKER.FURNITURE MOVER HELPER Work Phone: [facility] 01-02-2022 13:51-0400 Systolic blood pressure 118 mm[Hg] Carmita Keron LOOSE HAND PACKER.FURNITURE MOVER HELPER Work Phone: [facility] Encounters Encounter Date Encounter Type Care Provider Facility Start: 12-29-2024 Emergency department patient visit Ion Keri Facility:[facility] Start: 12-29-2024 End: 12-29-2024 Patient encounter procedure Maria Ines Ceja MANHOLE STRIPPER-C -[facility] Work Phone: Start: 12-29-2024 End: 12-29-[address] Zac Byers MD Work Phone: -[facility] Start: 2024 ambulatory Carmita reynaga NP Facility:[facility] Start: 12-04-2024 End: 12-12-2024 Evaluation and management of inpatient Vero Machado MD Work Phone: [facility] [address] Start: 12-04-2024 End: 12-04-2024 Emergency department patient visit CELESTINE QUINN [facility] Start: 12-04-2024 End: 12-04-[address] Zac Byers MD Work Phone: [facility] Start: 12-04-2024 End: 12-04-2024 Patient encounter procedure Maria Ines MENA -[facility] Work Phone: Start: 12-04-2024 End: 12-04-2024 ambulatory PIEDAD YORDANW Facility:[facility] Start: 12-04-2024 End: 12-04-2024 Patient encounter procedure Maria Ines MENA -Laboratory Work Phone: Comment on above: Acute bacterial conj unctivitis of both eyes (Primary Dx); Tachycardia; Jaundice Start: 12-04-2024 End: 12-04-2024 Patient encounter procedure Maria Ines MENA -[facility] Work Phone: Start: 12-04-2024 End: 12-04-[address] Zac Byers MD Work Phone: -[facility] Start: 12-04-2024 End: 12-04-2024 ambulatory Carmita Patrick NP Facility:[facility] Start: 12-02-2024 End: 12-02-2024 Emergency department patient visit Dr. Zac Byers MD Work Phone: -Emergency Department Work Phone: Start: 09-04-2024 End: 09-04-2024 Patient encounter procedure Sameer Mars [place] -[facility] Work Phone: Start: 09-04-2024 End: 09-04-2024 ambulatory Zac Byers Facility:[facility] Start: 10-08-2023 Telephone encounter Noemi cox MD Work Phone: Gastroenterology Comment on above: Appointment Start: 10-02-2022 Refill Carmita reynaga LOOSE HAND PACKERDonnyFURNITURE MOVER HELPER Work Phone: [address] [place] [address] Comment on above: Refill Request; Refi ll Request Patient Question Start: 03-17-2022 Refill Carmita reynaga LOOSE HAND PACKER.FURNITURE MOVER HELPER Work Phone: [facility] Comment on above: Refill Request Start: 02-27-2022 Telephone encounter Adriana POPE Work Phone: NEUROLOGY Comment on above: Care Coordination ([facility] clinic follow up) Start: 02-17-2022 Orders Only Noemi ronquillo MD Work Phone: Gastroenterology Start: 02-14-2022 End: 02-14-2022 Orders Only Noemi Russell MD Work Phone: Gastroenterology Comment on above: Hepatomegaly (Primar y Dx) Alcohol use (Primary Dx) Alcoholic liver dise ase (HCC) (Primary Dx) Hepatomegaly [R16.0] Alcohol abuse (Prima ry Dx) Start: 02-13-2022 ambulatory Adriana Ojedaronnell POPE Work Phone: NEUROLOGY Comment on above: Informed Consent Start: 02-13-2022 E-mail encounter fro m caregiver Adriana Jackson POPE Work Phone: [facility] Start: 01-19-2022 End: 01-19-2022 ambulatory Noemi Russell MD Work Phone: Gastroenterology Comment on above: Alcoholic cirrhosis of liver without ascites (HCC) (Primary Dx); Hepatomegaly; Nausea and vomiting, unspecified vomiting type Start: 01-19-2022 End: 01-19-2022 Telemedicine consultation with patient Neomi Russell MD Work Phone: [facility] Start: 01-18-2022 Telephone encounter Sarah Cheek (Pss) Gastroenterology Comment on above: Appointment Start: 01-09-2022 End: 01-09-2022 Patient encounter procedure Aleks Najera MD Work Phone: Gastroenterology Comment on above: Hypersplenism (Prima ry Dx); Intra-abdominal and pelvic swelling, mass and lump, unspecified site; Abdominal bloating; Generalized abdominal pain; Weight loss; Early satiety; Alcohol abuse; Dark urine; Pulsatile abdomen; Hepatomegaly; Nausea and vomiting, unspecified vomiting type Start: 01-05-2022 Telephone encounter Carmita Quezada vaalexus ANNETTE.FURNITURE MOVER HELPER Work Phone: [facility] Comment on above: Results Start: 01-04-2022 End: 01-04-2022 Subsequent hospital visit by physician [facility] ([facility]) Work Phone: Cat Scan Comment on above: Intra-abdominal and pelvic swelling, mass and lump, unspecified site [R19.00] Start: 01-03-2022 Telephone encounter Carmita Burnham ANNETTE.FURNITURE MOVER HELPER Work Phone: [facility] Comment on above: Patient update re: C T scan (Left without having test done ) Start: 01-02-2022 ambulatory [facility] Facil ty:[facility] Start: 01-02-2022 End: 01-02-2022 Subsequent hospital visit by physician [facility] Work Phone: [facility] Start: 01-02-2022 End: 01-02-2022 Subsequent hospital visit by physician X[facility] Work Phone: Radiology Comment on above: Nausea [R11.0] Start: 01-02-2022 End: 01-02-2022 Patient encounter procedure Carmita Patrick [employer]OOSE [employer] P[employer]ER.FURNITURE MOVER HELPER Work Phone: [facility] Comment on above: Hepatomegaly (Primar y Dx); Pulsatile abdomen; Nausea; Nausea and vomiting, unspecified vomiting type; Abdominal bloating; Generalized abdominal pain; Epigastric mass; Right upper quadrant abdominal mass; Abdominal mass, LUQ (left upper quadrant); Weight loss; Early satiety; Alcohol abuse; Dark urine Start: 11-04-2020 End: 11-04-2020 Subsequent hospital visit by physician [facility] [place] Work Phone: Radiology Comment on above: Acute pain of right shoulder [M25.511] Procedures Date Procedure Procedure Detail Performing Clinician Start: 12-12-2024 Glucose quantitative blood xcpt reagent strip Melvi Weaver DO Work Phone: Start: 12-12-2024 End: 12-12-2024 Comprehensive metabolic panel Azalia Zamora MD Work Phone: Start: 12-11-2024 Glucose quantitative blood xcpt reagent strip Esmer Delonte Weaver DO Work Phone: Start: 12-11-2024 Glucose quantitative blood xcpt reagent strip Melvi Patel Delonte Weaver DO Work Phone: Start: 12-11-2024 Glucose quantitative blood xcpt reagent strip Esmer Delonte Weaver DO Work Phone: Start: 12-11-2024 Cyanocobalamin vitamin b-12 Arin Gonsalez MD Work Phone: Start: 12-11-2024 End: 12-11-2024 Comprehensive metabolic panel Azalia Zamora MD Work Phone: Start: 12-10-2024 Glucose quantitative blood xcpt reagent strip Melvi Weaver DO Work Phone: Start: 12-10-2024 Glucose quantitative blood xcpt reagent strip Esmer Delonte Weaver DO Work Phone: Start: 12-10-2024 Glucose quantitative blood xcpt reagent strip Melvi Martel Owen DO Work Phone: Start: 12-10-2024 End: 12-10-2024 Culture bacterial blood aerobic w/id isolates Arin Gonsalez MD Work Phone: Start: 12-10-2024 AFB PROCESSED Arin Gonsalez MD Work Phone: Start: 12-10-2024 Albumin [Mass/volume] in Body fluid Arin Gonsalez MD Work Phone: Start: 12-10-2024 Amylase [Enzymatic activity/volume] in Body fluid Arin Gonsalez MD Work Phone: Start: 12-10-2024 End: 12-10-2024 Assay of amylase Arin Gonsalez MD Work Phone: Start: 12-10-2024 Bilirubin.total [Mass/volume] in Body fluid Arin Gonsalez MD Work Phone: Start: 12-10-2024 Cell count and Differential panel - Body fluid Arin Gonsalez MD Work Phone: Start: 12-10-2024 Cell count misc body fluids w/differential count Arin Gonsalez MD Work Phone: Start: 12-10-2024 Cholesterol [Mass/volume] in Body fluid Arin Gonsalez MD Work Phone: Start: 12-10-2024 Cul bact xcpt urine blood/stool aerobic isol Arin Gonsalez MD Work Phone: Start: 12-10-2024 Differential panel - Body fluid Arin Kaplan MD Work Phone: Start: 12-10-2024 Glucose [Mass/volume] in Body fluid Arin Gonsalez MD Work Phone: Start: 12-10-2024 Lactate dehydrogenase [Enzymatic activity/volume] in Body fluid by Lactate to pyruvate reaction Arin Gonsalez MD Work Phone: Start: 12-10-2024 Other source albumin quantitative each specimen Arin Gonsalez MD Work Phone: Start: 12-10-2024 Protein [Mass/volume] in Body fluid Arin Gonsalez MD Work Phone: Start: 12-10-2024 Urea nitrogen [Mass/volume] in Body fluid Arin Gonsalez MD Work Phone: Start: 12-10-2024 Abdom paracentesis dx/ther w/imaging guidance Arin Gonsalez MD Work Phone: Start: 12-10-2024 Comprehensive metabolic panel Azalia Zamora MD Work Phone: Start: 12-09-2024 End: 12-09-2024 Comprehensive metabolic panel Azalia Zamora MD Work Phone: Start: 12-08-2024 Glucose quantitative blood xcpt reagent strip Brianna Singh MD Work Phone: Start: 12-08-2024 Glucose quantitative blood xcpt reagent strip Brianna Singh MD Work Phone: Start: 12-08-2024 Blood count complete auto&auto difrntl wbc Azalia Zamora MD Work Phone: Start: 12-08-2024 Comprehensive metabolic panel Azalia Zamora MD Work Phone: Start: 12-07-2024 Dup-scan artl geno abdl/pel/scrot&/rpr orgn com Gregor Mayfield MD Work Phone: Start: 12-07-2024 Comprehensive metabolic panel Azalia Zamora MD Work Phone: Start: 12-06-2024 Ct head/brain w/o contrast material Gregor Mayfield MD Work Phone: Start: 12-06-2024 Comprehensive metabolic panel Azalia Zamora MD Work Phone: Start: 2024 Assay of lactate Gregor Mayfield MD Work Phone: Start: 2024 Assay of lactate Gregor Mayfield MD Work Phone: Start: 2024 Us abdominal real time w/image limited Azalia Zamora MD Work Phone: Start: 2024 Antinuclear antibodies cheryl Azalia Zamora MD Work Phone: Start: 2024 Comprehensive metabolic panel Azalia Zamora MD Work Phone: Start: 2024 HC ANTINEUTROPHIL CYTOPLASMIC ANTIBODY (ANCA); SCREEN, EACH ANTIBODY ANCA IGG BY IFA Azalia Zamora MD Work Phone: Start: 2024 Mitochondria Ab [Presence] in Serum by Immunofluorescence Azalia Zamora MD Work Phone: Start: 2024 Smooth muscle Ab [Presence] in Serum by Immunofluorescence Azalia Zamora MD Work Phone: Start: 2024 Us abdominal real time w/image limited Vero Machado MD Work Phone: Start: 12-04-2024 EXTRA URINE UNDERWOOD TUBE Vero Machado MD Work Phone: Start: 12-04-2024 Urinalysis complete W Reflex Culture panel - Urine Vero Machado MD Work Phone: Start: 12-04-2024 Cell count and Differential panel - Body fluid Aleks Catalan DO Work Phone: Start: 12-04-2024 End: 12-04-2024 Cell count misc body fluids w/differential count Aleks Catalan DO Work Phone: Start: 12-04-2024 Differential panel - Body fluid Aleks Catalan DO Work Phone: Start: 12-04-2024 Study Interpretation of outside study Vero Machado MD Work Phone: Start: 12-04-2024 AFB PROCESSED Aleks Catalan DO Work Phone: Start: 12-04-2024 End: 12-04-2024 Culture tubercle/oth acid-fast bacilli any isol Aleks Catalan DO Work Phone: Start: 12-04-2024 Protein [Mass/volume] in Body fluid Aleks Catalan DO Work Phone: Start: 12-04-2024 End: 12-04-2024 Protein total xcpt refractometry oth src Aleks Catalan DO Work Phone: Start: 12-04-2024 Acute hepatitis panel Vero Machado MD Work Phone: Start: 12-04-2024 End: 12-04-2024 Bilirubin direct Vero Machado MD Work Phone: Start: 12-04-2024 Culture bacterial blood aerobic w/id isolates Vero Machado MD Work Phone: Start: 12-04-2024 Ethanol [Mass/volume] in Serum or Plasma Azalia Zamora MD Work Phone: Start: 12-04-2024 HC ASSAY OF ACETAMINOPHEN - ACETAMINOPHEN LEVEL Vero Machado MD Work Phone: Start: 12-04-2024 Study Interpretation of outside study Vero Machado MD Work Phone: Start: 12-04-2024 Comprehensive metabolic panel Vero kumar MD Work Phone: Start: 12-04-2024 Ecg routine ecg w/least 12 lds trcg only w/o i&r Vero Machado MD Work Phone: Start: 12-04-2024 MRI of abdomen with contrast Dr. Zac Beckford MD Work Phone: Start: 12-04-2024 Fbnad-2-Qfctndupksy measurement Dr. Millie Byers MD Work Phone: Comment on above: [facility] Electrochemiluminescen ce Immunoassay(ECLIA)Values obtained with different assay methods or kits cannotbe used interchangeably. Results cannot be interpreted asabsolute evidence of the presence or absence of malignantdisease.This test is not interpretable in females. Start: 12-04-2024 Hepatitis A virus antibody, total measurement Dr. Zac Byers MD Work Phone: Comment on above: Comment: The HAV total antibody assay de tects both IgG andIgM but does not differentiate between them. A negativeresult suggests susceptibility to infection. A positiveresult could be due to vaccination, previously resolvedinfection or active infection. Testing for HAV IgM shouldbe performed if active HAV infection is suspected. [facility] profiles that will automatically reflex positive HAVtotal antibody results to IgM (e.g., panel #[id number] HAVAntibody w/ Rfx).Performed at: [address] [id number] Director: Stanley Ozuna PhD, Phone: [phone] Start: 12-04-2024 Hepatitis C antibody measurement Dr. Sin Byers MD Work Phone: Comment on above: Reactive: Presumptive evidence of antibo dies to HCV. Follow CDC recommendations for supplemental testing.Non-Reactive: Antibodies to HCV were not detected; does not exclude the possibility of exposure to HCVReactive Results are presumptive evidence of antibodies to HCV. Follow CDC recommendations for supplemental testing.Order confirmation testing: HCV Quant by PCR testing - HCVPCR #[id number] Non Reactive: < 0.8 Equivocal: >/= 0.8 to < 1.0 Reactive: >/= 1.0The CDC requires that a reactive/equivocal HCV antibody result be sent out for confirmation. HCV Quant by PCR testing. Start: 12-02-[address] Zac Byers MD Work Phone: Start: 12-02-2024 CT of thorax, abdomen and pelvis with contrast Dr. 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 Work Phone: Start: 01-02-2022 Radiologic exam chest 2 views Carmita Burnham [employer]OOSE HAND PACKER.FURNITURE MOVER HELPER Work Phone: Start: 11-04-2020 Radex shoulder complete minimum 2 views Schuyler Hartman LOOSE HAND PACKER.FURNITURE MOVER HELPER Work Phone: Start: 01-27-2011 Adult depression screening assessment [facility] Work Phone: Plan of Treatment Date Care Activity Detail Author Start: 2030 [facility] Start: 12-13-2027 Diabetes mellitus screening [facility] Start: 02-03-2025 End: 02-03-2025 ambulatory [facility] Start: 12-15-[address] [facility] Start: 12-04-2024 Psvti-6-rzirlvwicwv.tumor marker [Units/volume] in Serum or Plasma [facility] Start: 12-04-2024 Basic metabolic 2008 panel with ionized calcium - Serum or Plasma [facility] Start: 12-04-2024 CBC W Auto Differential panel - Blood [facility] Start: 12-04-2024 Gamma glutamyl transferase measurement [facility] Start: 12-04-2024 Hepatic function panel [facility] Start: 12-04-2024 Hepatitis A virus Ab [Presence] in Serum [facility] Start: 12-04-2024 Hepatitis B virus core Ab [Presence] in Serum [facility] Start: 12-04-2024 Hepatitis B virus surface Ab [Presence] in Serum [facility] Start: 12-04-2024 Hepatitis C antibody measurement [facility] Start: 12-04-2024 Prothrombin time [facility] Start: 12-04-2024 [facility] Start: 12-02-2024 [facility] Start: 12-16-2023 Covid-19 Vaccine ( season) Covid-19 Vaccine ( season) [facility] Start: 12-16-[address] [facility] Start: 12-16-2023 [facility] Start: 04-16-2023 Behavioral Health Screening Behavioral Health Screening [facility] Start: 12-15-2022 Covid-19 Vaccine ( season) Covid-19 Vaccine ( season) [facility] Start: 12-15-2022 Influenza vaccination INFLUENZA (#1) [facility] Start: 04-16-2022 DEPRESSION ASSESSMENT DEPRESSION ASSESSMENT [facility] Start: 03-14-2022 HEPATITIS A (2 of 3 - Hep A Twinrix risk 3-dose series) HEPATITIS A (2 of 3 - Hep A Twinrix risk 3-dose series) [facility] Start: 03-14-2022 [facility] Start: 02-15-2022 End: 04-17-2022 ETHYL GLUCURONIDE UR SCR ETHYL GLUCURONIDE UR SCR Lab Routine Alcoholic liver disease (HCC) Expected: 02/15/2022, Expires: 04/17/2022 [facility] Work Phone: Comment on above: Expected: 02/15/2022, Expires: 3 Start: 02-15-2022 End: 04-17-2022 PAIN PANEL, UR QUANT PAIN PANEL, UR QUANT Lab Routine Alcoholic liver disease (HCC) Expected: 02/15/2022, Expires: 04/17/2022 [facility] Work Phone: Comment on above: Expected: 02/15/2022, Expires: 3 Start: 02-15-2022 End: 04-17-2022 PHOSPHATIDYLETHANOL (PETH) PHOSPHATIDYLETHANOL (PETH) Lab Routine Alcoholic liver disease (HCC) Expected: 02/15/2022, Expires: 04/17/2022 [facility] Work Phone: Comment on above: Expected: 02/15/2022, Expires: 3 Start: 02-15-2022 End: 04-17-2022 TOX SCREEN ROUT UR TOX SCREEN ROUT UR Lab Routine Alcoholic liver disease (HCC) Expected: 02/15/2022, Expires: 04/17/2022 [facility] Work Phone: Comment on above: Expected: 02/15/2022, Expires: 3 Start: 02-15-2022 End: 04-17-2022 Zinc [Mass/volume] in Serum or Plasma ZINC BLD Lab Routine Alcoholic liver disease (HCC) Expected: 02/15/2022, Expires: 04/17/2022 [facility] Work Phone: Comment on above: Expected: 02/15/2022, Expires: 3 Start: 01-09-2022 End: 03-11-2022 ALPHA 1 ANTITRYP PHEN/GENOTYPE ALPHA 1 ANTITRYP PHEN/GENOTYPE Lab Routine Hepatomegaly Expected: 01/09/2022, Expires: 03/11/2022 [facility] Work Phone: Comment on above: Expected: 01/09/2022, Expires: 2 Start: 01-09-2022 End: 03-11-2022 Prjic-2-Wmasrivszsa [Mass/volume] in Serum or Plasma ALPHA FETOPROTEIN BL Lab Routine Dark urine Pulsatile abdomen Hepatomegaly Nausea and vomiting, unspecified vomiting type Expected: 01/09/2022, Expires: 03/11/2022 [facility] Work Phone: Comment on above: Expected: 01/09/2022, Expires: 2 Start: 01-09-2022 End: 03-11-2022 CBC panel - Blood by Automated count CBC Lab Routine Hepatomegaly Expected: 01/09/2022, Expires: 03/11/2022 [facility] Work Phone: Comment on above: Expected: 01/09/2022, Expires: 2 Start: 01-09-2022 End: 03-11-2022 Comprehensive metabolic 2000 panel - Serum or Plasma COMP METABOLIC PANEL Lab Routine Hepatomegaly Expected: 01/09/2022, Expires: 03/11/2022 [facility] Work Phone: Comment on above: Expected: 01/09/2022, Expires: 2 Start: 01-09-2022 End: 03-11-2022 HEPATITIS A ANTIBODY, IGG HEPATITIS A ANTIBODY, IGG Lab Routine Hepatomegaly Expected: 01/09/2022, Expires: 03/11/2022 [facility] Work Phone: Comment on above: Expected: 01/09/2022, Expires: 2 Start: 01-09-2022 End: 03-11-2022 Hepatitis B virus core Ab [Presence] in Serum HEP B CORE AB TOTAL Lab Routine Hepatomegaly Expected: 01/09/2022, Expires: 03/11/2022 [facility] Work Phone: Comment on above: Expected: 01/09/2022, Expires: 2 Start: 01-09-2022 End: 03-11-2022 Hepatitis B virus surface Ab [Presence] in Serum HEP B SURF AB QUAL Lab Routine Hepatomegaly Expected: 01/09/2022, Expires: 03/11/2022 [facility] Work Phone: Comment on above: Expected: 01/09/2022, Expires: 2 Start: 01-09-2022 End: 03-11-2022 Hepatitis B virus surface Ab [Presence] in Serum by Immunoassay HEP B SURF AG SCRN Lab Routine Hepatomegaly Expected: 01/09/2022, Expires: 03/11/2022 [facility] Work Phone: Comment on above: Expected: 01/09/2022, Expires: 2 Start: 01-09-2022 End: 03-11-2022 HFE gene targeted mutation analysis in Blood or Tissue by Molecular genetics method HFE (HEMOCHROMATOSIS) Lab Routine Hepatomegaly Nausea and vomiting, unspecified vomiting type Expected: 01/09/2022, Expires: 03/11/2022 [facility] Work Phone: Comment on above: Expected: 01/09/2022, Expires: 2 Start: 01-09-2022 End: 03-11-2022 Mitochondria Ab [Presence] in Serum by Immunofluorescence MITOCHONDRIAL AB SCR Lab Routine Hepatomegaly Expected: 01/09/2022, Expires: 03/11/2022 [facility] Work Phone: Comment on above: Expected: 01/09/2022, Expires: 2 Start: 01-09-2022 End: 03-11-2022 Nuclear Ab [Presence] in Serum by Immunoassay CHERYL BLOOD Lab Routine Hepatomegaly Expected: 01/09/2022, Expires: 03/11/2022 [facility] Work Phone: Comment on above: Expected: 01/09/2022, Expires: 2 Start: 01-09-2022 End: 03-11-2022 PT panel - Platelet poor plasma by Coagulation assay PROTHROMBIN TIME/PT Lab Routine Dark urine Pulsatile abdomen Hepatomegaly Expected: 01/09/2022, Expires: 03/11/2022 [facility] Work Phone: Comment on above: Expected: 01/09/2022, Expires: 2 Start: 12-15-2021 Influenza vaccination INFLUENZA (#1) [facility] Start: 04-16-2021 DEPRESSION ASSESSMENT DEPRESSION ASSESSMENT [facility] Start: 10-01-2020 COVID-19 VACCINE (2 - Pfizer series) COVID-19 VACCINE (2 - Pfizer series) [facility] Start: 08-27-2020 COVID-19 VACCINE (2 - Pfizer series) COVID-19 VACCINE (2 - Pfizer series) [facility] Start: 07-09-2019 [facility] Start: 07-09-2019 [facility] Start: 12-06-2015 Lipid [address] Lipid Screening [facility] Start: 12-06-[address] [facility] Start: 11-05-2015 PNEUMOCOCCAL (2 - PPSV23 if available, else PCV20) PNEUMOCOCCAL (2 - PPSV23 if available, else PCV20) [facility] Start: 11-05-2015 PNEUMOCOCCAL (2 - PPSV23 or PCV20) PNEUMOCOCCAL (2 - PPSV23 or PCV20) [facility] Start: 12-30-2014 PNEUMOCOCCAL (2 - PPSV23 or PCV20) PNEUMOCOCCAL (2 - PPSV23 or PCV20) [facility] Start: 12-30-2014 [facility] Start: 12-30-2014 [facility] Start: 08-13-2012 HEPATITIS B (3 of 3 - 3-dose series) HEPATITIS B (3 of 3 - 3-dose series) [facility] Start: 01-28-2012 Adult depression screening assessment DEPRESSION SCREENING [facility] Start: 12-06-2007 HPV Vaccine (1 - 3-dose SCDM series) HPV Vaccine (1 - 3-dose SCDM series) [facility] Start: 12-06-2007 [facility] Start: 1998 Anxiety Screening Anxiety Screening [facility] Start: 1998 Depression Screening Depression Screening [facility] Start: 1981 HEPATITIS A (1 of 2 - Risk 2-dose series) HEPATITIS A (1 of 2 - Risk 2-dose series) [facility] Start: 1980 HIV screening [facility] Start: 1980 Lipid panel [facility] Start: 1980 [facility] Alanine aminotransfe rase [Enzymatic activity/volume] in Serum or Plasma [facility] Albumin [Mass/volume ] in Serum or Plasma [facility] Alkaline phosphatase [Enzymatic activity/volume] in Serum or Plasma [facility] Anion gap in Serum o r Plasma [facility] Bacteria identified in Blood by Culture [facility] Work Phone: Bacteria identified in Body fluid by Culture [facility] Work Phone: Bilirubin, total measurement [facility] Bilirubin.direct [Mass/volume] in Serum or Plasma [facility] BUN/Creatinine ratio [facility] Calcium [Mass/volume ] in Serum or Plasma [facility] Carbon dioxide, tota l [Moles/volume] in Central venous blood [facility] CBC W Auto Different ial panel - Blood [facility] Work Phone: [facility] Creatinine [Mass/vol ume] in Serum or Plasma [facility] DDI VIBRATION CONTRO LLED TRANSIENT ELASTOGRAPHY (VCTE) DDI VIBRATION CONTROLLED TRANSIENT ELASTOGRAPHY (VCTE) Procedures Routine Hepatomegaly Ordered: 01/19/2022 [facility] Work Phone: Comment on above: Ordered: 01/19/2022 End: 02-18-2023 Dup-scan artl geno abdl/pel/scrot&/rpr orgn com US DOPPLER COMPLETE Radiology Routine Hepatomegaly 1 Occurrences starting 01/19/2022 until 02/18/2023 [facility] Work Phone: Comment on above: 1 Occurrences starting 01/19/2022 until 02/18/2023 End: 01-02-2023 ECG COMPLETE ECG COMPLETE ECG Routine Nausea Nausea and vomiting, unspecified vomiting type Abdominal bloating Generalized abdominal pain Epigastric mass Right upper quadrant abdominal mass Abdominal mass, LUQ (left upper quadrant) Weight loss Early satiety Alcohol abuse Dark urine Pulsatile abdomen 1 Occurrences starting 01/02/2022 until 01/02/2023 [facility] Work Phone: Comment on above: 1 Occurrences starting 01/02/2022 until 01/02/2023 Electrocardiogram, 1 2-lead PRN ACS symptoms [facility] Service Area Work Phone: Erythrocyte mean corpuscular volume determination [facility] ETHYL GLUCURONIDE UR SCR ETHYL G LUCURONIDE UR SCR Lab Routine Alcoholic liver disease (HCC) 02/14/2022 4:25 PM EDT [facility] Work Phone: Glucose [Mass/volume ] in Serum or Plasma [facility] Glucose [Mass/volume ] in Serum or Plasma [facility] Work Phone: Hematocrit [Volume Fraction] of Blood [facility] Hemoglobin [Mass/vol ume] in Blood [facility] Hepatic function 200 0 panel - Serum or Plasma [facility] Work Phone: Hepatitis B virus mccoy rface Ag [Presence] in Serum [facility] INR in Blood by Coag ulation assay [facility] Leukocytes [#/volume ] in Blood [facility] Magnesium [Mass/volu me] in Serum or Plasma [facility] Work Phone: Mean corpuscular hem oglobin concentration determination [facility] Mean corpuscular hem oglobin determination [facility] Measurement of renal function [facility] MR Abdomen WO and W contrast IV [facility] End: 02-08-2023 Mri abdomen w/o & w/contrast material MRI LIVER WO/W IVCON Radiology Routine Hepatomegaly Hypersplenism 1 Occurrences starting 01/09/2022 until 02/08/2023 [facility] Work Phone: Comment on above: 1 Occurrences starting 01/09/2022 until 02/08/2023 Mycobacterium sp nilesh ntified in Unspecified specimen by Organism specific culture [facility] Work Phone: Mycobacterium sp nilesh ntified in Unspecified specimen by Organism specific culture [facility] Work Phone: Neutrophil count [facility] Neutrophil percent differential count [facility] PAIN PANEL, UR QUANT PAIN PANEL, UR QUANT Lab Routine Alcoholic liver disease (HCC) 02/14/2022 4:26 PM EDT [facility] Work Phone: Patient Education ED Ascites ED Constipation (Adult) [facility] Work Phone: PHOSPHATIDYLETHANOL (PETH) PHOSP HATIDYLETHANOL (PETH) Lab Routine Alcoholic liver disease (HCC) 02/14/2022 3:27 PM EDT [facility] Work Phone: Platelets [#/volume] in Blood [facility] Potassium measurement [facility] PT and aPTT panel - Platelet poor plasma by Coagulation assay [facility] Work Phone: Red blood cell count [facility] Red cell distributio n width determination [facility] Renal function 2000 panel - Serum or Plasma [facility] Work Phone: Serum chloride measurement [facility] Sodium measurement [facility] Total protein measurement [facility] TOX SCREEN ROUT UR TOX SCREEN RO UT UR Lab Routine Alcoholic liver disease (HCC) 02/14/2022 4:26 PM EDT [facility] Work Phone: Urea nitrogen [Mass/ volume] in Serum or Plasma [facility] End: 02-18-2023 US ABD LIVER VASCULAR US ABD LIVER VASCULAR Radiology Routine Hepatomegaly 1 Occurrences starting 01/19/2022 until 02/18/2023 [facility] Work Phone: Comment on above: 1 Occurrences starting 01/19/2022 until 02/18/2023 VIBRATION CONTROLLED TRANSIENT ELASTOGRAPHY (POC) VIBRATION CONTROLLED TRANSIENT ELASTOGRAPHY (POC) Imaging Diagnostic Routine Hepatomegaly Ordered: 01/19/2022 [facility] Work Phone: Comment on above: Ordered: 01/19/2022 Zinc [Mass/volume] i n Serum or Plasma ZINC BLD Lab Routine Alcoholic liver disease (HCC) 02/14/2022 3:27 PM EDT [facility] Work Phone: [facility] Immunizations Immunization Date Immunization Notes Care Provider Samy farias 02-14-2022 hepatitis A and hepatitis B vaccine Adriana POPE Work Phone: [facility] 11-04-2014 pneumococcal conjuga te vaccine, [address] [facility] Work Phone: [facility] Work Phone: 01-31-2013 influenza virus vaccine, unspecified formulation [facility] Work Phone: [facility] Work Phone: 06-04-2012 hepatitis B vaccine, adult dosage [facility] Work Phone: [facility] 06-04-2012 hepatitis B vaccine, unspecified formulation [facility] Work Phone: [facility] 05-22-2012 measles, mumps and rubella virus vaccine [facility] Work Phone: [facility] Work Phone: 05-13-2012 tuberculin skin test ; purified protein derivative solution, intradermal Xr [place] Work Phone: [facility] 04-23-2012 hepatitis B vaccine, adult dosage [facility] Work Phone: [facility] 04-23-2012 influenza virus vaccine, unspecified formulation [facility] Work Phone: [facility] 04-23-2012 tuberculin skin test ; purified protein derivative solution, intradermal Xr [place] Work Phone: [facility] 07-08-2009 tetanus toxoid, redu leobardo diphtheria toxoid, and acellular pertussis vaccine, adsorbed [facility] Work Phone: [facility] Work Phone: Payers Date Payer Category Payer Blue Cross Blue Shie ld [facility] Care [id number] 2024 Self-pay 2021 [employer] Blue [employer] BLUE CARD PPO OOS [id number] 2021 Unknown [id number] 2020 Unknown [id number] 2018 Private Health Insurance [facility] CHOICE PLUS [id number] 2018-2021 [address] [place] [address] HMO [id number] 1980 Unknown [id number] 1980 Unknown [id number] Unknown [id number] Unknown [id number] Unknown [id number] Unknown [id number] Unknown [id number] Unknown [id number] Unknown [id number] Unknown [id number] Unknown [id number] Social History Date Type Detail Facility Start: 01-05-2011 End: 01-02-2022 Tobacco smoking status NHIS Occasional tobacco smoker [facility] Start: 04-16-2024 History of tobacco use Cigarette Smoker [facility] Start: 01-02-2022 End: 2024 Cigarettes smoked current (pack per day) - Reported 0.5 [facility] Start: 01-05-2011 End: 01-02-2022 Tobacco use and exposure Smokeless tobacco non-user [facility] Start: 01-02-2022 End: 2024 Alcohol intake Current drinker of alcohol (finding) [facility] Start: 01-01-2022 History SDOH Alcohol Frequency 5 [facility] Start: 01-01-2022 History SDOH Alcohol Std Drinks 2 [facility] Start: 11-04-2014 History SDOH Alcohol Comment occasional: At least 12 pack over the weekend and probably additional 12 pack through the week [facility] Start: 01-01-2022 History SDOH Social Connections Get Together 3 [facility] Start: 01-01-2022 History SDOH Social Connections Sikh 1 [facility] Start: 01-01-2022 History SDOH Social Connections Living 8 [facility] Start: 01-05-2011 End: 01-02-2022 Tobacco Comment [address] [facility] Start: 1980 Sex Assigned At Not on file [facility] Start: 10-05-2020 End: 02-14-2022 Exposure to SARS-CoV-2 (event) Not sure [facility] Start: 01-09-2022 History SDOH Alcohol Comment Daily, after work [facility] Start: 01-10-2022 End: 01-20-2022 Exposure to SARS-CoV-2 (event) Unable to assess [facility] Start: 01-01-2022 End: 2024 Social connection and isolation panel [facility] Do you belong to any clubs or organizations such as amish groups, unions, fraternal or athletic groups, or school groups? No [facility] Are you now , , , , never or living with a partner? Living with partner [facility] How often to you hav e a drink containing alcohol? 4 or more times a week [facility] How many standard dr inks containing alcohol do you have on a typical day? [address] [facility] How often do you hav e 6 or more drinks on 1 occasion? Less than monthly [facility] How hard is it for y ou to pay for the very basics like food, housing, medical care, and heating Somewhat hard [facility] Start: 03-17-2012 End: 03-10-2022 Adult Depression Screening Assessment 0 [facility] (I/We) worried wheth er (my/our) food would run out before (I/we) got money to buy more. Never true [facility] In the past 12 month s, was there a time when you were not able to pay the mortgage or rent on time? Yes [facility] Start: 12-02-2024 End: 12-04-2024 Tobacco smoking status NHIS Smokes tobacco daily (finding) [facility] Start: 1980 Sex Assigned At Male [facility] Start: 2024 Tobacco use and exposure User of smokeless tobacco [facility] Work Phone: Are you now , , , , never or living with a partner? [facility] Work Phone: How often do you hav e 6 or more drinks on 1 occasion? Weekly [facility] Work Phone: Do you feel stress - tense, restless, nervous, or anxious, or unable to sleep at night because your mind is troubled all the time - these days [OSQ] To some extent [facility] Work Phone: How often do you nee d to have someone help you when you read instructions, pamphlets, or other written material from your doctor or pharmacy [SILS] Never [facility] Work Phone: Start: 12-04-2024 Gender identity Identifies as male gender (finding) [facility] Functional Status Date Assessment Result Facility 2024 Total score [AUDIT-C] [facility] Work Phone: 2024 Patient Health Quest ionnaire 2 item (PHQ-2) [Reported] [facility] Work Phone: 12-04-2024 [facility] everity rating scale screener - recent [C-SSRS] [facility] Work Phone: 11-04-2014 Are you deaf, or do you have serious difficulty hearing No 11/04/2014 11:25 AM Alethea Ochoa LPN No [facility] 11-04-2014 Are you blind, or do you have serious difficulty seeing, even when wearing glasses No 11/04/2014 11:25 AM Alethea Ohcoa LPN No [facility] 11-04-2014 Do you have serious difficulty walking or climbing stairs No 11/04/2014 11:25 AM Alethea Ochoa LPN No [facility] 11-04-2014 Do you have difficul ty dressing or bathing No 11/04/2014 11:25 AM Alethea Ochoa LPN No [facility] 11-04-2014 Because of a physica l, mental, or emotional condition, do you have difficulty doing errands alone such as visiting a physician's office or shopping No 11/04/2014 11:25 AM Alethea Ochoa LPN No [facility] Work Phone: Mental Status Date Assessment Result Facility 12-02-2024 Cognitive function Level Of Cons ciousness Awake;Alert;Appropriate [facility] Work Phone: 11-04-2014 Because of a physica l, mental, or emotional condition, do you have serious difficulty concentrating, remembering, or making decisions No 11/04/2014 11:25 AM Alethea Ochoa LPN No [facility] Clinical Notes 11-04-2020 to 12-12-2024 Nita Ruth RN - 12/12/2024 1:38 PM EDTCare Plan - Sondra Ureña RN - 12/12/2024 1:23 PM EDTCare Plan - Nathalia Tello RN - 12/12/2024 12:43 AM EDTDischarge InstructionsAttachments Note Date & Type Note Facility 12-12-2024 Nurse Note 12/12/2024 1339 Discharge Note Patient discharged home with no needs. Discharge instructions discussed with patient, verbalized understanding. Aware of follow up appointments needed. Meds to beds delivered to patient prior to discharge. Patient missing rifaximin, called meds to beds and medication ready, patient will [facility] [address]. Peripheral IV already out at time of discharge. Belongings gathered per patient. Has a ride home. Refused transport and ambulated off unit with family at 1328. ---- Nita Ruth RN documented in this encounter [facility] Work Phone: 12-12-2024 Miscellaneous Notes The patient's goals for the shift include monitor for pain and discomfort The clinical goals for the shift include Patient will remain safe throughout this shift Problem: Pain - Adult Goal: Verbalizes/displays adequate comfort level or baseline comfort level Outcome: Progressing Problem: Safety - Adult Goal: Free from fall injury Outcome: Progressing Problem: Discharge Planning Goal: Discharge to home or other facility with appropriate resources Outcome: Progressing Problem: Chronic Conditions and Co-morbidities Goal: Patient's chronic conditions and co-morbidity symptoms are monitored and maintained or improved Outcome: Progressing Problem: Nutrition Goal: Nutrient intake appropriate for maintaining nutritional needs Outcome: Progressing Problem: Fall/Injury Goal: Not fall by end of shift Outcome: Progressing Goal: Be free from injury by end of the shift Outcome: Progressing Goal: Verbalize understanding of personal risk factors for fall in the hospital Outcome: Progressing Goal: Verbalize understanding of risk factor reduction measures to prevent injury from fall in the home Outcome: Progressing Goal: Use assistive devices by end of the shift Outcome: Progressing Goal: Pace activities to prevent fatigue by end of the shift Outcome: Progressing The patient's goals for the shift include monitor for pain and discomfort The clinical goals for the shift include Patient will remain safe throughout this shift Over the shift, the patient did not make progress toward the following goals. Barriers to progression include . Recommendations to address these barriers include . The patient's goals for the shift include monitor for pain and discomfort The clinical goals for the shift include Patient will remain safe throughout this shift Patient remain safe throughout this shift Rapid Response Nurse Note: RADAR alert: 7 Pager time: 141 Arrival time: 142 Event end time: 144 Location: [place] [address] [] Triage by phone or secure messaging Rapid response initiated by: [] Rapid response RN [] Family [] Nursing Windlace Machine Operator [] Physician [x] RADAR auto page [] Sepsis auto-page [] RN [] RT [] MANHOLE STRIPPER/PA [] Other: Primary reason for call: [] BAT [] New CPAP/BiPAP [] Bleeding [] Change in mental status [] Chest pain [] Code blue [] FiO2 >/= 50% [] HR </= 40 bpm [] HR >/= 130 bpm [] Hyperglycemia [] Hypoglycemia [x] RADAR [] RR </= 8 bpm [] RR >/= 30 bpm [] SBP </= 90 mmHg [] SpO2 < 90% [] Seizure [] Sepsis [] Shortness of breath [] Staff concern: see comments Initial VS and/or RADAR VS: T 36.5 C; HR 83; RR 21; BP 100/56; SPO2 90%. Providers present at bedside (if applicable): Name of ICU Provider contacted (if applicable): Interventions: [x] None [] ABG/VBG [] Assist w/ICU transfer [] BAT paged [] Bag mask [] Blood [] Cardioversion [] Code Blue [] Code blue for intubation [] Code status changed [] Chest x-ray [] EKG [] IV fluid/bolus [] KUB x-ray [] Labs/cultures [] Medication [] Nebulizer treatment [] NIPPV (CPAP/BiPAP) [] Oxygen [] Oral airway [] Peripheral IV [] Palliative care consult [] CT/MRI [] Sepsis protocol [] Suctioned [] Other: Outcome: [] Coded and [] Code blue for intubation [] Coded and transferred to ICU [] on division [x] Remained on division (no change) [] Remained on division + additional monitoring [] Remained in ED [] Transferred to ED [] Transferred to ICU [] Transferred to inpatient status [] Transferred for interventions (procedure) [] Transferred to ICU stepdown [] Transferred to surgery [] Transferred to telemetry [] Sepsis protocol [] STEMI protocol [] Stroke protocol [x] Bedside nurse instructed to page rapid response for any concerns or acute change in condition/VS Additional Comments: RADAR alert- score of 7. Message to the bedside nurse, VS reviewed. No immediate concerns. Pt to remain on the floor for continued plan of care. The patient's goals for the shift include monitor for pain and discomfort The clinical goals for the shift include Pt will remain safe and free from injury during shift taken 12/10 The patient's goals for the shift include monitor for pain and discomfort The clinical goals for the shift include Pt rafa remain safe and free from injury throughout shift. Problem: Pain - Adult Goal: Verbalizes/displays adequate comfort level or baseline comfort level Outcome: Progressing Problem: Safety - Adult Goal: Free from fall injury Outcome: Progressing Problem: Discharge Planning Goal: Discharge to home or other facility with appropriate resources Outcome: Progressing Problem: Chronic Conditions and Co-morbidities Goal: Patient's chronic conditions and co-morbidity symptoms are monitored and maintained or improved Outcome: Progressing Problem: Nutrition Goal: Nutrient intake appropriate for maintaining nutritional needs Outcome: Progressing Problem: Fall/Injury Goal: Not fall by end of shift Outcome: Progressing Goal: Be free from injury by end of the shift Outcome: Progressing Goal: Verbalize understanding of personal risk factors for fall in the hospital Outcome: Progressing Goal: Verbalize understanding of risk factor reduction measures to prevent injury from fall in the home Outcome: Progressing Goal: Use assistive devices by end of the shift Outcome: Progressing Goal: Pace activities to prevent fatigue by end of the shift Outcome: Progressing INTERVENTIONAL RADIOLOGY ADVANCED PRACTICE PROCEDURE [facility] A time out was performed and Right Hemiabdomen was examined with US and appropriate entry point was confirmed and marked. The patient was prepped and draped in a sterile manner, 1% lidocaine was used to anesthesize the skin and subcutaneous tissue. A 5F Centesis needle was then introduced through the skin into the peritoneal space, the centesis catheter was then threaded without difficulty. 3700 ml of yellow fluid was removed without difficulty. The catheter was then removed. No immediate complications were noted during and immediately following the procedure. The patient's goals for the shift include monitor for pain and discomfort The clinical goals for the shift include pt will remain free from falls and injuries throughout the shift The patient's goals for the shift include monitor for pain and discomfort The clinical goals for the shift include patient will remain safe and free from falls and injuries throughout the shift The patient's goals for the shift include monitor for pain and discomfort The clinical goals for the shift include Patient will remain safe and free from falls and injuries throughout the shift Due to clinical presentation, there is no further indication for CLAUDIA services at this time. Please contact [facility] via secure chat to resume services or if any questions/concerns arise. The clinical goals for the shift include Patient will remain safe and free from falls and injury by 1900 on 12/07/24. The patient's goals for the shift include monitor for pain and discomfort The clinical goals for the shift include Pt will remain HDS throughout the shift 12/07/24 0700. Problem: Pain - Adult Goal: Verbalizes/displays adequate comfort level or baseline comfort level Outcome: Progressing Problem: Safety - Adult Goal: Free from fall injury Outcome: Progressing Problem: Discharge Planning Goal: Discharge to home or other facility with appropriate resources Outcome: Progressing Problem: Chronic Conditions and Co-morbidities Goal: Patient's chronic conditions and co-morbidity symptoms are monitored and maintained or improved Outcome: Progressing Problem: Nutrition Goal: Nutrient intake appropriate for maintaining nutritional needs Outcome: Progressing Rapid Response Nurse Note: [x] RADAR alert/Score 7 Pager time: 2101 Arrival time: 2110 Event end time: 2117 Location: [place] [address] [] Phone triage Rapid response initiated by: [] Rapid Response RN [] Family [] Nursing Windlace Machine Operator [] Physician [x] RADAR auto-page [] Sepsis auto-page [] RN [] RT [] MANHOLE STRIPPER/PA [] Other: Primary reason for call: [] BAT [] New CPAP/BiPAP [] Bleeding [] Change in mental status [] Chest pain [] Code blue [] FiO2 >/= 50% [] HR </= 40 bpm [] HR >/= 130 bpm [] Hyperglycemia [] Hypoglycemia [x] RADAR [] RR </= 8 bpm [] RR >/= 30 bpm [] SBP </= 90 mmHg [] SpO2 < 90% [] Seizure [] Sepsis [] Staff concern: Initial VS and/or RADAR VS: radar vitals below in bold Vitals: 12/06/24 1313 12/06/24 1700 12/06/24210112/06/[id number] BP: 101/66 102/76 90/60 100/64 BP Location: Right arm Patient Position: Lying Pulse: 96 88 97 96 Resp: 18 20 18 Temp: 36.8 C (98.2 F) 36.2 C (97.2 F) TempSrc: Temporal SpO2: 93% 90% 94% Weight: Height: Interventions: [x] None [] ABG [] Assist w/ICU transfer [] BAT paged [] Bag mask [] Blood [] Cardioversion [] Code Blue [] Code blue for intubation [] Code status changed [] Chest x-ray [] EKG [] IV fluid/bolus [] KUB x-ray [] Labs/cultures [] Medication [] Nebulizer treatment [] NIPPV (CPAP/BiPAP) [] Oxygen [] Oral airway [] Peripheral IV [] Palliative care consult [] CT/MRI [] Sepsis protocol [] Suctioned [] Other: Outcome: [] Coded and [] Code blue for intubation [] Coded and transferred to ICU [] on division [x] Remained on division (no change) [] Remained on division + additional monitoring [] Remained in ED [] Transferred to ED [] Transferred to ICU [] Transferred to inpatient status [] Transferred for interventions (procedure) [] Transferred to ICU stepdown [] Transferred to surgery [] Transferred to telemetry [] Sepsis protocol [] STEMI protocol [] Stroke protocol Additional Comments: RN not present at time of arrival. Spoke to covering RN regarding vital signs. Pt found off his oxygen and placed back on nasal cannula. He denied being light headed or dizzy. Covering RN instructed to page rapid response for any concerns or acute changes in condition or vital signs. The patient's goals for the shift include monitor for pain and discomfort The clinical goals for the shift include Pt will remain safe and free from injury throughout shift. Problem: Pain - Adult Goal: Verbalizes/displays adequate comfort level or baseline comfort level Outcome: Progressing Problem: Safety - Adult Goal: Free from fall injury Outcome: Progressing Problem: Discharge Planning Goal: Discharge to home or other facility with appropriate resources Outcome: Progressing Problem: Chronic Conditions and Co-morbidities Goal: Patient's chronic conditions and co-morbidity symptoms are monitored and maintained or improved Outcome: Progressing Problem: Nutrition Goal: Nutrient intake appropriate for maintaining nutritional needs Outcome: Progressing Problem: Fall/Injury Goal: Not fall by end of shift Outcome: Progressing Goal: Be free from injury by end of the shift Outcome: Progressing Goal: Verbalize understanding of personal risk factors for fall in the hospital Outcome: Progressing Goal: Verbalize understanding of risk factor reduction measures to prevent injury from fall in the home Outcome: Progressing Goal: Use assistive devices by end of the shift Outcome: Progressing Goal: Pace activities to prevent fatigue by end of the shift Outcome: Progressing Problem: Pain - Adult Goal: Verbalizes/displays adequate comfort level or baseline comfort level Outcome: Progressing Problem: Safety - Adult Goal: Free from fall injury Outcome: Progressing Problem: Discharge Planning Goal: Discharge to home or other facility with appropriate resources Outcome: Progressing Problem: Chronic Conditions and Co-morbidities Goal: Patient's chronic conditions and co-morbidity symptoms are monitored and maintained or improved Outcome: Progressing Problem: Fall/Injury Goal: Not fall by end of shift Outcome: Progressing Goal: Be free from injury by end of the shift Outcome: Progressing Goal: Verbalize understanding of personal risk factors for fall in the hospital Outcome: Progressing Goal: Verbalize understanding of risk factor reduction measures to prevent injury from fall in the home Outcome: Progressing Goal: Use assistive devices by end of the shift Outcome: Progressing Goal: Pace activities to prevent fatigue by end of the shift Outcome: Progressing The patient's goals for the shift include monitor for pain and discomfort The clinical goals for the shift include Patient will remain safe and free from falls and injury by 1900 on 12/05/24. Over the shift, the patient did not make progress toward the following goals. Barriers to progression include . Recommendations to address these barriers include . The clinical goals for the shift include Patient will remain safe and free from falls and injury by 1900 on 12/05/24. Jose Parker is a 44 y.o. male with h/o alcohol use and hepatic steatosis vs cirrhosis presented with x1-2 week of worsening abdominal pain, distension, and jaundice. Patient sent to ED from primary care provider. Upon arrival, patient was hemodynamically stable with tachycardia to 130s. Labs were notable for Na 126, K 5.5 (mod hemolysis), Cl 88. CBC showed leukocytosis with wbc 17.7, platelets 94. INR 1.7, PT 18.7. LFTs show alk phos 196, alt 56, ast 186, total bili 17.9, direct bili 9.8. alcohol <10. Urinalysis showed 2+ ketones. Urine toxicology was negative and blood cultures are negative. In regards to imaging, RUQ ultrasound showed cholelithiasis and gallbladder sludge with no sonographic evidence of acute cholecystitis, hepatomegaly, diffuse heterogeneity of the liver with a nodular contur, and a moderate amt of ascites. He had a diagnostic paracentesis which was negative for SBP. He was given x1 dose of ceftriaxone 2g IV and 1L IVF. Patient later became more confused, with tremors, tachycardia, and visual hallucinations, concerning for alcohol withdrawal as states his last drink was 12/01/24 and drinks 3-4 vodka drinks daily. CIWA was protocol activated. Withdrawal symptoms resolved within 24 hours. Liver function tests continued to worsen with an increasing leukocytosis, increasing total bilirubin and increasing liver function tests (Alkaline phosphatase, AST, ALT). Hepatology was consulted. Due to concerns of alcoholic hepatitis, prednisolone 40 daily was started for 5 days to assess effectiveness. Additionally, patient underwent diagnostic and therapeutic paracentesis on 12/10/24 which was negative for SBP and removed 3.7L. After 5 days, patient had limited response to steroids and failed steroid course. Patient is stable and ready for discharge on 12/12/24. Continue to follow up with liver outpatient and get screening EGD CLAUDIA Initial Assessment: CLAUDIA services consulted by bedside nurse due to AMS, agitation, and elopement behaviors in the context of suspected etoh withdrawal. Per bedside nurse, patient has progressively become more confused and disoriented as the day progresses. When patient went to IR, he refused his US and wandered into a procedural area of another patient. Patient was sent back to [place] [id number]. Patient was agitated, pulled out his IV, and insistent on leaving the hospital. Bedside nurse scored the patient's CIWA as 17. On assessment, patient was sitting at the edge of the bed attempting to get up. Patient was disoriented and disorganized. The provider spoke with the patient on indication for hospitalization. As the provider spoke with the in the hallway, the patient got out of bed and fidgeted with the door handle. Patient was redirected back to bed. Patient was agreeable with lorazepam 1 mg PO at 1027. Patient allowed staff to obtain labs and place PIV. Abx reconnected and IV wrapped with kerlix to prevent patient from pulling out IV again. At end of encounter, patient was lying in bed quietly. and patient observer at bedside. Per eMAR, patient now has diazepam PRN ordered q2 hr for CIWA > 6 or HR > 100 bpm. Shift updates 1630: Patient received PRN diazepam 10 mg at 1325. Per bedside nurse, patient has been resting in bed quietly after receiving PRN diazepam. No acute concerns identified at this time. CLAUDIA services available to patient and staff / throughout hospitalization. CLAUDIA will continue to perform q12 hr rounding to ensure safety of patient and staff. Please secure chat CLAUDIA with any questions or concerns. Problem: Pain - Adult Goal: Verbalizes/displays adequate comfort level or baseline comfort level Outcome: Progressing Problem: Safety - Adult Goal: Free from fall injury Outcome: Progressing Problem: Discharge Planning Goal: Discharge to home or other facility with appropriate resources Outcome: Progressing Problem: Chronic Conditions and Co-morbidities Goal: Patient's chronic conditions and co-morbidity symptoms are monitored and maintained or improved Outcome: Progressing Problem: Nutrition Goal: Nutrient intake appropriate for maintaining nutritional needs Outcome: Progressing The patient's goals for the shift include monitor for pain and discomfort The clinical goals for the shift include no pain Over the shift, the patient did not make progress toward the following goals. Barriers to progression include . Recommendations to address these barriers include . documented in this encounter [facility] Work Phone: 12-12-2024 History of Presen t illness Narrative [facility] PROGRESS NOTE Reason For Consult Alcoholic Hepatitis SUBJECTIVE Day 5 on steroid. T-seth and INR remains the same. EXAM Last Recorded Vitals Blood pressure 98/56, pulse 79, temperature 37.2 C (99 F), temperature source Temporal, resp. rate 18, height 1.722 m (5' 7.8), weight 78.9 kg (174 lb), SpO2 92%. Intake/Output Summary (Last 24 hours) at 12/12/2024 1128 Last data filed at 12/12/2024 1000 Gross per 24 hour Intake 360 ml Output -- Net 360 ml Physical Exam General: Jaundiced. HEENT: EOMI. Moist mucosa Respiratory: nonlabored breathing on room air Cardiovascular: RRR, no murmurs/rubs/gallops Abdomen: Soft, distended, bowel sounds present. No masses palpated Extremities: no edema, no asterixis Neuro: alert and oriented, CNII-XII grossly intact, moves all 4 extremities with no focal deficits OBJECTIVE Medications Current Medications[1] Labs Results for orders placed or performed during the hospital encounter of 12/04/24 (from the past 24 hours) POCT GLUCOSE Result Value Ref Range POCT Glucose 113 (H) 74 - 99 mg/dL POCT GLUCOSE Result Value Ref Range POCT Glucose 141 (H) 74 - 99 mg/dL POCT GLUCOSE Result Value Ref Range POCT Glucose 116 (H) 74 - 99 mg/dL CBC and Auto Differential Result Value Ref Range WBC 21.7 (H) 4.4 - 11.3 x10*3/uL nRBC 0.0 0.0 - 0.0 /100 WBCs RBC 3.59 (L) 4.50 - 5.90 x10*6/uL Hemoglobin 13.5 13.5 - 17.5 g/dL Hematocrit 39.9 (L) 41.0 - 52.0 % MCV 111 (H) 80 - 100 fL MCH 37.6 (H) 26.0 - 34.0 pg MCHC 33.8 32.0 - 36.0 g/dL RDW 17.8 (H) 11.5 - 14.5 % Platelets 223 150 - 450 x10*3/uL Neutrophils % 83.2 40.0 - 80.0 % Immature Granulocytes %, Automated 0.9 0.0 - 0.9 % Lymphocytes % 8.2 13.0 - 44.0 % Monocytes % 7.5 2.0 - 10.0 % Eosinophils % 0.0 0.0 - 6.0 % Basophils % 0.2 0.0 - 2.0 % Neutrophils Absolute 18.05 (H) 1.20 - 7.70 x10*3/uL Immature Granulocytes Absolute, Automated 0.20 0.00 - 0.70 x10*3/uL Lymphocytes Absolute 1.79 1.20 - 4.80 x10*3/uL Monocytes Absolute 1.62 (H) 0.10 - 1.00 x10*3/uL Eosinophils Absolute 0.01 0.00 - 0.70 x10*3/uL Basophils Absolute 0.04 0.00 - 0.10 x10*3/uL Magnesium Result Value Ref Range Magnesium 2.53 (H) 1.60 - 2.40 mg/dL Hepatic Function Panel Result Value Ref Range Albumin 2.8 (L) 3.4 - 5.0 g/dL Bilirubin, Total 23.6 (H) 0.0 - 1.2 mg/dL Bilirubin, Direct 15.9 (H) 0.0 - 0.3 mg/dL Alkaline Phosphatase 144 (H) 33 - 120 U/L ALT 77 (H) 10 - 52 U/L AST 137 (H) 9 - 39 U/L Total Protein 5.0 (L) 6.4 - 8.2 g/dL Coagulation Screen Result Value Ref Range Protime 17.2 (H) 9.8 - 12.4 seconds INR 1.6 (H) 0.9 - 1.1 aPTT 27 26 - 36 seconds Phosphorus Result Value Ref Range Phosphorus 2.4 (L) 2.5 - 4.9 mg/dL Basic Metabolic Panel Result Value Ref Range Glucose 91 74 - 99 mg/dL Sodium 131 (L) 136 - 145 mmol/L Potassium 3.9 3.5 - 5.3 mmol/L Chloride 91 (L) 98 - 107 mmol/L Bicarbonate 32 21 - 32 mmol/L Anion Gap 12 10 - 20 mmol/L Urea Nitrogen 12 6 - 23 mg/dL Creatinine 0.81 0.50 - 1.30 mg/dL eGFR >90 >60 mL/min/1.73m*2 Calcium 8.3 (L) 8.6 - 10.6 mg/dL POCT GLUCOSE Result Value Ref Range POCT Glucose 94 74 - 99 mg/dL Imaging === 12/04/24 === US ABDOMEN LIMITED - Impression - 1. The patient declined to complete the examination. 2. Cirrhotic morphology of the liver with moderate volume intra-abdominal ascites of the images obtained before the patient terminated the exam. GI Procedures ASSESSMENT / PLAN ASSESSMENT/PLAN: Jose Parker is a 44 y.o. male with a past medical history of alcohol use disorder, hepatic steatosis presenting with abdomina distention, pain and jaundice admitted on 12/04/2024 concerned for alcohol withdrawal/alcoholic hepatitis. MELD 3.0: 26 at 12/12/2024 7:22 AM MELD-Na: 27 at 12/12/2024 7:22 AM Calculated from: Serum Creatinine: 0.81 mg/dL (Using min of 1 mg/dL) at 12/12/2024 7:22 AM Serum Sodium: 131 mmol/L at 12/12/2024 7:22 AM Total Bilirubin: 23.6 mg/dL at 12/12/2024 7:22 AM Serum Albumin: 2.8 g/dL at 12/12/2024 7:22 AM INR(ratio): 1.6 at 12/12/2024 7:22 AM Age at listing (hypothetical): 44 years Sex: Male at 12/12/2024 7:22 AM #Alcohol withdrawal #Alcoholic hepatitis Presentation is consistent with alcohol withdrawal with elevated CIWA requiring BDZ. reports the patient never having withdrawal in the past. Patient was first found to have alcoholic hepatitis in 2021 when he was told to stop alcohol but has been continuously drinking 3~4 mixed vodka drinks until recently. PETH from this admission is very elevated at 1798. Lab is consistent with alcoholic hepatitis (T seth 17.6, AST 133/ALT 53>2, ALP 173). Low Na 129. MDF 58>32. Paracentesis on 12/04 with WBC 133 ruling out SBP. No albumin collected to calculate SAAG. Low TP of 2.0. UA neg. CT head negative for any acute process. Blood culture from 12/04 negative. Plan for repeat giving persistently elevated WBC though could be from steroid. The patient has started on steroid on 12/08. Bilirubin/INR without improvement on day 5 thus plan to discontinue. Again discussed importance alcohol cessation and to follow up with transplant rn burn for possible evaluation in case the patient further decompensates and shows sobriety. Plan -Discontinue prednisolone -Continue diuretics to lasix 40mg/spironolactone 100mg. -Continue rifaximin/lactulose -Continue thiamin/MVI -Daily MELD lab (CBC, LFT, BMP, INR) while inpt. Recommend labs in 1 week as outpt. -Patient to follow up with Dr. Renteria as outpatient. Will arrange it. -EGD as outpatient. Patient to obtain with his local cuff setter. Patient could also get paracentesis PRN there, limit fluid removal to 4 lts and check cell count with diff. Patient was seen and discussed with Dr. Jalloh Thank you for this interesting consult. Gastroenterology will sign off. -During weekday hours of 7am-5pm please do not hesitate to contact me on [employer] Chat or page [phone] if there are any further questions between the weekday hours of 7 AM - 5 PM. -After hours, on weekends, and on holidays, [place] [phone]. Thank you. Elena Quinteros MD Gastroenterology Fellow, PGY-6 [1] Current Facility-Administered Medications: alum-mag hydroxide-simeth (Mylanta) 200-200-20 mg/5 mL oral suspension 20 mL, 20 mL, oral, 4x daily PRN, Arin Gonsalez MD, 20 mL at 12/08/24 1753 dextrose 50 % injection 12.5 g, 12.5 g, intravenous, q15 min PRN, Arin Gonsalez MD dextrose 50 % injection 25 g, 25 g, intravenous, q15 min PRN, Arin Gonsalez MD diazePAM (Valium) injection 10 mg, 10 mg, intravenous, q2h PRN, Gamal Garcia MD, 10 mg at 12/05/24 1325 folic acid (Folvite) tablet 1 mg, 1 mg, oral, Daily, Azalia Zamora MD, 1 mg at 12/12/24928 furosemide (Lasix) tablet 40 mg, 40 mg, oral, Daily, Arin Gonsalez MD, 40 mg at 12/12/24928 glucagon (Glucagen) injection 1 mg, 1 mg, intramuscular, q15 min PRN, Arin Gonsalez MD glucagon (Glucagen) injection 1 mg, 1 mg, intramuscular, q15 min PRN, Arin Gonsalez MD insulin lispro injection 0-5 Units, 0-5 Units, subcutaneous, TID AC, Arin Gonsalez MD lactulose 20 gram/30 mL oral solution 10 g, 10 g, oral, TID, Gregor Mayfield MD, 10 g at 12/11/24 2045 lidocaine 4 % patch 1 patch, 1 patch, transdermal, Daily, Arin Gonsalez MD, 1 patch at 12/09/24 0814 multivitamin with minerals 1 tablet, 1 tablet, oral, Daily, Azalia Zamora MD, 1 tablet at 12/12/24928 nicotine (Nicoderm CQ) 14 mg/24 hr patch 1 patch, 1 patch, transdermal, q24h, Naomi Chakraborty MD, 1 patch at 12/09/24 1408 oxygen (O2) therapy, 1 Dose, inhalation, Continuous - O2/gases, Giovany Ram MD, 1 Dose at 12/10/24 0517 pantoprazole (ProtoNix) EC tablet 40 mg, 40 mg, oral, Daily before breakfast, Arin Gonsalez MD, 40 mg at 12/12/24928 prednisoLONE (Sterane) tablet 40 mg, 40 mg, oral, Daily, Arin Gonsalez MD, 40 mg at 12/12/24928 rifAXIMin (Xifaxan) tablet 550 mg, 550 mg, oral, q12h ANTOINE, Azalia Zamora MD, 550 mg at 12/12/24928 spironolactone (Aldactone) tablet 100 mg, 100 mg, oral, Daily, Arin Gonsalez MD, 100 mg at 12/12/24928 thiamine (Vitamin B-1) tablet 100 mg, 100 mg, oral, Daily, Azalia Zamora MD, 100 mg at 12/12/24928 Cosigned by Susana Jalloh MD at 12/12/2024 2:04 PM EDT Associated attestation - Susana Jalloh MD - 12/12/2024 2:04 PM EDT I saw and evaluated the patient. I personally obtained the avilez and critical portions of the history and physical exam or was physically present for avilez and critical portions performed by the resident/fellow. I reviewed the resident/fellow's documentation and discussed the patient with the resident/fellow. I agree with the resident/fellow's medical decision making as documented in the note with the exception/addition of the following: Mr Parker was seen this morning. His was present at bedside. Lille score is borderline and not favorable. As a result, prednisolone will be discontinued. Reviewed recs for management of complications from liver ds- including diuretics for ascites/volume. Recommend outpt EGD with MAC for variceal screening. Pt plans to have this done close to home with GI team in [place]. Discussed the importance of sobriety from all alcohol use. Reviewed that he has decompensated ds and his MELD 3.0 score of 26 places him at high risk for morbidity and mortality. Recommend he establish care with Dr Renteria in hepatology. Given positive alcohol use hx (PETH ~ 1500 in this admission), long standing hx of liver ds, alcohol use ds (used to follow with [facility] in 2021 as well for AUD related liver ds)- he is not a candidate for liver transplant eval at this time. He was advised to participate in treatment for alcohol use ds as an outpt. Pt notes that this was a wake up call for him and he intends not to use alcohol. Discussed the importance of treatment of this disorder and to develop skills to prevent relapse. [facility] PROGRESS NOTE Reason For Consult Alcoholic Hepatitis SUBJECTIVE S/p para yesterday w/o SBP. Repetat blood culture obtained. T-seth remains elevated. EXAM Last Recorded Vitals Blood pressure 96/58, pulse 91, temperature 36.4 C (97.5 F), temperature source Temporal, resp. rate 17, height 1.722 m (5' 7.8), weight 78.9 kg (174 lb), SpO2 93%. Intake/Output Summary (Last 24 hours) at 12/11/2024 1131 Last data filed at 12/11/2024 0600 Gross per 24 hour Intake 100 ml Output -- Net 100 ml Physical Exam General: Jaundiced. HEENT: EOMI. Moist mucosa Respiratory: nonlabored breathing on room air Cardiovascular: RRR, no murmurs/rubs/gallops Abdomen: Soft, distended, bowel sounds present. No masses palpated Extremities: no edema, no asterixis Neuro: alert and oriented, CNII-XII grossly intact, moves all 4 extremities with no focal deficits OBJECTIVE Medications Current Medications[1] Labs Results for orders placed or performed during the hospital encounter of 12/04/24 (from the past 24 hours) Blood Culture Specimen: Peripheral Venipuncture; Blood culture Result Value Ref Range Blood Culture Loaded on Instrument - Culture in progress POCT GLUCOSE Result Value Ref Range POCT Glucose 120 (H) 74 - 99 mg/dL Blood Culture Specimen: Peripheral Venipuncture; Blood culture Result Value Ref Range Blood Culture Loaded on Instrument - Culture in progress POCT GLUCOSE Result Value Ref Range POCT Glucose 124 (H) 74 - 99 mg/dL POCT GLUCOSE Result Value Ref Range POCT Glucose 138 (H) 74 - 99 mg/dL CBC and Auto Differential Result Value Ref Range WBC 18.2 (H) 4.4 - 11.3 x10*3/uL nRBC 0.1 (H) 0.0 - 0.0 /100 WBCs RBC 3.54 (L) 4.50 - 5.90 x10*6/uL Hemoglobin 13.4 (L) 13.5 - 17.5 g/dL Hematocrit 39.3 (L) 41.0 - 52.0 % MCV 111 (H) 80 - 100 fL MCH 37.9 (H) 26.0 - 34.0 pg MCHC 34.1 32.0 - 36.0 g/dL RDW 18.3 (H) 11.5 - 14.5 % Platelets 216 150 - 450 x10*3/uL Neutrophils % 77.3 40.0 - 80.0 % Immature Granulocytes %, Automated 1.4 (H) 0.0 - 0.9 % Lymphocytes % 10.3 13.0 - 44.0 % Monocytes % 10.6 2.0 - 10.0 % Eosinophils % 0.1 0.0 - 6.0 % Basophils % 0.3 0.0 - 2.0 % Neutrophils Absolute 14.09 (H) 1.20 - 7.70 x10*3/uL Immature Granulocytes Absolute, Automated 0.25 0.00 - 0.70 x10*3/uL Lymphocytes Absolute 1.87 1.20 - 4.80 x10*3/uL Monocytes Absolute 1.94 (H) 0.10 - 1.00 x10*3/uL Eosinophils Absolute 0.01 0.00 - 0.70 x10*3/uL Basophils Absolute 0.06 0.00 - 0.10 x10*3/uL Magnesium Result Value Ref Range Magnesium 2.50 (H) 1.60 - 2.40 mg/dL Hepatic Function Panel Result Value Ref Range Albumin 3.0 (L) 3.4 - 5.0 g/dL Bilirubin, Total 22.9 (H) 0.0 - 1.2 mg/dL Bilirubin, Direct 14.7 (H) 0.0 - 0.3 mg/dL Alkaline Phosphatase 164 (H) 33 - 120 U/L ALT 74 (H) 10 - 52 U/L AST 134 (H) 9 - 39 U/L Total Protein 5.4 (L) 6.4 - 8.2 g/dL Coagulation Screen Result Value Ref Range Protime 15.3 (H) 9.8 - 12.4 seconds INR 1.4 (H) 0.9 - 1.1 aPTT 26 26 - 36 seconds Phosphorus Result Value Ref Range Phosphorus 2.1 (L) 2.5 - 4.9 mg/dL Basic Metabolic Panel Result Value Ref Range Glucose 72 (L) 74 - 99 mg/dL Sodium 133 (L) 136 - 145 mmol/L Potassium 3.6 3.5 - 5.3 mmol/L Chloride 91 (L) 98 - 107 mmol/L Bicarbonate 32 21 - 32 mmol/L Anion Gap 14 10 - 20 mmol/L Urea Nitrogen 12 6 - 23 mg/dL Creatinine 0.75 0.50 - 1.30 mg/dL eGFR >90 >60 mL/min/1.73m*2 Calcium 8.4 (L) 8.6 - 10.6 mg/dL POCT GLUCOSE Result Value Ref Range POCT Glucose 77 74 - 99 mg/dL Imaging === 12/04/24 === US ABDOMEN LIMITED - Impression - 1. The patient declined to complete the examination. 2. Cirrhotic morphology of the liver with moderate volume intra-abdominal ascites of the images obtained before the patient terminated the exam. GI Procedures ASSESSMENT / PLAN ASSESSMENT/PLAN: Jose Parker is a 44 y.o. male with a past medical history of alcohol use disorder, hepatic steatosis presenting with abdomina distention, pain and jaundice admitted on 12/04/2024 concerned for alcohol withdrawal/alcoholic hepatitis. MELD 3.0: 25 at 12/11/2024 7:14 AM MELD-Na: 24 at 12/11/2024 7:14 AM Calculated from: Serum Creatinine: 0.75 mg/dL (Using min of 1 mg/dL) at 12/11/2024 7:14 AM Serum Sodium: 133 mmol/L at 12/11/2024 7:14 AM Total Bilirubin: 22.9 mg/dL at 12/11/2024 7:14 AM Serum Albumin: 3 g/dL at 12/11/2024 7:14 AM INR(ratio): 1.4 at 12/11/2024 7:14 AM Age at listing (hypothetical): 44 years Sex: Male at 12/11/2024 7:14 AM #Alcohol withdrawal #Alcoholic hepatitis Presentation is consistent with alcohol withdrawal with elevated CIWA requiring BDZ. reports the patient never having withdrawal in the past. Patient was first found to have alcoholic hepatitis in 2021 when he was told to stop alcohol but has been continuously drinking 3~4 mixed vodka drinks until recently. PETH from this admission is very elevated at 1798. Lab is consistent with alcoholic hepatitis (T seth 17.6, AST 133/ALT 53>2, ALP 173). Low Na 129. MDF 58>32. Paracentesis on 12/04 with WBC 133 ruling out SBP. No albumin collected to calculate SAAG. Low TP of 2.0. UA neg. CT head negative for any acute process. Blood culture from 12/04 negative. Plan for repeat giving persistently elevated WBC though could be from steroid. The patient has started on steroid on 12/08. Plan to monitor the response based on Lille score to determine the length of prednisone. So far, bilirubin/INR has been somewhat improving. Plan -Repeat blood culture giving persistently elevated WBC -Await paracentesis fluid analysis -Continue prednisolone 40mg daily. Depending on Lille score on day 5 which is 12/12, will decide the length of steroid. -Please increase dose of diuretics to lasix 40mg/spironolactone 100mg. -Continue rifaximin/lactulose -Continue thiamin/MVI -Daily MELD lab (CBC, LFT, BMP, INR) Patient was seen and discussed with Dr. Renteria. Thank you for this interesting consult. Gastroenterology will continue to follow. -During weekday hours of 7am-5pm please do not hesitate to contact me on [employer] Chat or page [phone] if there are any further questions between the weekday hours of 7 AM - 5 PM. -After hours, on weekends, and on holidays, [place] [phone]. Thank you. Elena Quinteros MD Gastroenterology Fellow, PGY-6 [1] Current Facility-Administered Medications: alum-mag hydroxide-simeth (Mylanta) 200-200-20 mg/5 mL oral suspension 20 mL, 20 mL, oral, 4x daily PRN, Arin Gonsalez MD, 20 mL at 12/08/24 1753 dextrose 50 % injection 12.5 g, 12.5 g, intravenous, q15 min PRN, Arin Gonsalez MD dextrose 50 % injection 25 g, 25 g, intravenous, q15 min PRN, Arin Gonsalez MD diazePAM (Valium) injection 10 mg, 10 mg, intravenous, q2h PRN, Gamal Garcia MD, 10 mg at 12/05/24 1325 folic acid (Folvite) tablet 1 mg, 1 mg, oral, Daily, Azalia Zamora MD, 1 mg at 12/11/24 0853 furosemide (Lasix) tablet 20 mg, 20 mg, oral, Daily, Arin Gonsalez MD, 20 mg at 12/11/24 0853 glucagon (Glucagen) injection 1 mg, 1 mg, intramuscular, q15 min PRN, Arin Gonsalez MD glucagon (Glucagen) injection 1 mg, 1 mg, intramuscular, q15 min PRN, Arin Gonsalez MD insulin lispro injection 0-5 Units, 0-5 Units, subcutaneous, TID AC, Arin Gonsalez MD lactulose 20 gram/30 mL oral solution 10 g, 10 g, oral, TID, Gregor Mayfield MD, 10 g at 12/11/24 0857 lidocaine 4 % patch 1 patch, 1 patch, transdermal, Daily, Arin Gonsalez MD, 1 patch at 12/09/24 0814 multivitamin with minerals 1 tablet, 1 tablet, oral, Daily, Azalia Zamora MD, 1 tablet at 12/11/24 0853 nicotine (Nicoderm CQ) 14 mg/24 hr patch 1 patch, 1 patch, transdermal, q24h, Naomi Chakraborty MD, 1 patch at 12/09/24 1408 oxygen (O2) therapy, 1 Dose, inhalation, Continuous - O2/gases, Giovany Ram MD, 1 Dose at 12/10/24 0517 pantoprazole (ProtoNix) EC tablet 40 mg, 40 mg, oral, Daily before breakfast, Arin Gonsalez MD, 40 mg at 12/11/24 0628 prednisoLONE (Sterane) tablet 40 mg, 40 mg, oral, Daily, Arin Gonsalez MD, 40 mg at 12/11/24 0853 rifAXIMin (Xifaxan) tablet 550 mg, 550 mg, oral, q12h ANTOINE, Azalia Zamora MD, 550 mg at 12/11/24 0853 spironolactone (Aldactone) tablet 50 mg, 50 mg, oral, Daily, Naomi Chakraborty MD, 50 mg at 12/11/24 0853 thiamine (Vitamin B-1) tablet 100 mg, 100 mg, oral, Daily, Azalia Zamora MD, 100 mg at 12/11/24 0853 Cosigned by Alessandro Renteria MD at 12/11/2024 11:36 AM EDT Associated attestation - Alessandro Renteria MD - 12/11/2024 11:36 AM EDT Attending addendum: I saw and evaluated the patient. I personally obtained the critical portions of the history and physical exam. The case was discussed in detail with the fellow; including, but not limited to the chief complaint, HPI, past history, physical findings, labs and radiological findings. I agree with the fellow's medical decision making as documented in the fellow's note. The patient was counseled on the possible differential diagnoses and testing needed to arrive at a diagnosis or a treatment plan. The patient does report some mild increase in his abdominal distention. I would recommend that the primary team consider increasing the diuretics. I suspect that he will have worsening ascites at home. We also educated him about a 2000 mg sodium diet. He does have multiple snacks in the room which have a large amount of sodium. We showed him how to read the labels and how to try to attain a 2000 mg daily sodium goal. His overall liver function has not changed much. We will await his Lille score tomorrow at day 5 of prednisone. However, with his bilirubin not improving, I doubt that this will be successful and we may likely need to discontinue his steroids. This would suggest a poor prognosis. Again, given his ongoing alcohol use and other issues, I personally do not feel that he would be a good transplant candidate currently. Alessandro Renteria MD, CRISTINA, FAASLD, FACG Application Dba, Hepatology Senior Attending Physician [facility] [facility] accounts receivable assistant Division of Gastroenterology and Liver Disease [facility] [employer] [address] [place] [phone] 12/11/24 1031 Rapid Rounds Attendance Provider;Nurse;Care Transitions Expected Discharge Disposition Home (Steroid) Today we still await: Clinical stability;Diagnostic workup;Symptomatic control Review at Escalation Rounds No escalation needed RAZA Luis-service member Coordinator (TCC) [phone] ext [phone] Nutrition Follow Up Assessment Nutrition Assessment Reason for Assessment: Dietitian discretion Patient is a 44 y.o. male presenting with abdominal pain, distention, and jaundice x 1-2 weeks. PMH of alcohol use and hepatic steatosis vs cirrhosis. Recent events: Diagnostic and therapeutic paracentesis completed today (12/10/24). 3.7L removed Patient was assessed virtually. Nutrition History: Food and Nutrient History: Pt seen for follow up. Remote RD spoke with patient over phone. He reports he is feeling much better today after paracentesis. States when he was eating before, it felt like it was sitting heavy and he felt bloated. States he was only able to have 2-3 bites of food before. States he eats light for breakfast and eats some fruit. States he did not eat much for lunch but is looking forward to dinner now that he has had some fluid removed. He states all his symptoms began about 3-4 weeks ago. He denies weight loss and reports only fluid gain. States his usual dry weight is around 170#. He has no known food allergies, but states he does not like fish. He is open to trying Boost [facility] daily for more calories and protein with less fluid intake due to fluid restriction. Vitamin/Herbal Supplement Use: None Anthropometrics: Height: 172.2 cm (5' 7.8) Weight: 78.9 kg (174 lb) BMI (Calculated): 26.62 IBW/kg (Dietitian Calculated): 70 kg Percent of IBW: 113 % Admission Weight Trend: Weights (last 14 days) Date/Time Weight 12/05/24 03:21:52 78.9 kg (174 lb) 12/04/24 1920 79.1 kg (174 lb 6.4 oz) Weight Change %: Weight History / % Weight Change: Patient reports he has only gained weight d/t fluid over the last few weeks. Reports a usual dry weight of 170#. Significant Weight Loss: No Nutrition Focused Physical Exam Findings: defer: Subcutaneous Fat Loss: Defer Subcutaneous Fat Loss Assessment: Defer all Defer All Reason: Remote assessment Muscle Wasting: Defer Muscle Wasting Assessment: Defer all Defer All Reason: Remote assessment Edema: Edema: +2 mild Edema Location: BLE Physical Findings: Skin: Negative Digestive System Findings: Abdominal distension Nutrition Significant Labs: CBC Trend: Results from last 7 days Lab Units 12/10/24 0717 12/09/24 0733 12/08/24 1230 12/07/24 0721 WBC AUTO x10*3/uL 22.9* 19.4* 12.6* 13.5* RBC AUTO x10*6/uL 3.61* 3.57* 2.99* 3.34* HEMOGLOBIN g/dL 13.6 13.8 11.6* 12.8* HEMATOCRIT % 39.6* 38.7* 32.6* 36.7* MCV fL 110* 108* 109* 110* PLATELETS AUTO x10*3/uL 244 193 129* 121* , BMP Trend: Results from last 7 days Lab Units 12/10/24 0717 12/09/24 0733 12/08/24 0615 12/07/24 0721 GLUCOSE mg/dL 109* 101* 88 89 CALCIUM mg/dL 8.5* 8.5* 8.5* 8.7 SODIUM mmol/L 132* 131* 132* 132* POTASSIUM mmol/L 3.4* 3.4* 4.1 3.5 CO2 mmol/L 30 30 27 32 CHLORIDE mmol/L 92* 90* 93* 92* BUN mg/dL 12 10 7 9 CREATININE mg/dL 0.64 0.65 0.70 0.76 , BG POCT trend: Results from last 7 days Lab Units 12/10/24 1146 12/10/24 0944 12/09/24 0804 12/08/24 1948 12/08/24 1732 POCT GLUCOSE mg/dL 120* 94 101* 145* 131* , Liver Function Trend: Results from last 7 days Lab Units 12/10/24 0717 12/09/24 0733 12/08/24 0615 12/07/24 0721 ALK PHOS U/L 165* 163* 359* 168* AST U/L 134* 138* 130* 128* ALT U/L 67* 60* 50 54* BILIRUBIN TOTAL mg/dL 22.8* 23.1* 21.0* 20.2* , Lipid Panel: No results found for: CHOL, HDL, CHHDL, LDLF, VLDL, TRIG , Vit D: No results found for: VITD25 , Vit B12: No results found for: [id number] , Iron Panel: Lab Results Component Value Date IRON 70 12/04/2024 TIBC 160 (L) 12/04/2024 FERRITIN 2,253 (H) 12/04/2024 , Folate: No results found for: FOLATE Nutrition Specific Medications: Scheduled medications Scheduled Medications[1] Continuous medications Continuous Medications[2] PRN medications PRN Medications[3] I/O: Last BM Date: 12/10/24; Stool Appearance: Soft (12/07/24 2100) Dietary Orders (From admission, onward) Start Ordered 12/05/24 1411 Adult diet Regular; 2000 mL fluid Diet effective now Question Answer Comment Diet type Regular Dietary fluid restriction / 24h: 2000 mL fluid 12/05/24 1410 12/05/24 0425 May Not Participate in Room Service ( ROOM SERVICE MAY NOT PARTICIPATE) Once Question: . Answer: Yes 12/05/24423 Estimated Needs: Total Energy Estimated Needs in 24 hours (kCal): 2450 kCal Method for Estimating Needs: 30-35 kcal/kg IBW, cirrhosis Total Protein Estimated Needs in 24 Hours (g): 105 g Method for Estimating 24 Hour Protein Needs: 1.2-1.5 gm/kg IBW, cirrhosis Total Fluid Estimated Needs in 24 Hours (mL): 1750 mL Method for Estimating 24 Hour Fluid Needs: ~25 mL/kcal, hyponatremia Nutrition Diagnosis Nutrition Diagnosis Patient has Nutrition Diagnosis: Yes Diagnosis Status (1): Resolved Nutrition Diagnosis 1: Inadequate oral intake Related to (1): abdominal pain As Evidenced by (1): pt is NPO for liver imaging Additional Nutrition Diagnosis: Diagnosis 2 Diagnosis Status (2): New Nutrition Diagnosis 2: Inadequate oral intake Related to (2): Bloating, feeling of fullness As Evidenced by (2): Pt report of decreased intake and 2-3 bites at meals Nutrition Interventions/Recommendations Nutrition Prescription: Individualized Nutrition Prescription Provided for : Continue diet with fluid restriction per MD as ordered. Recommend add Boost [facility] once daily to supplement PO intake as this will provide more calories and protein in less volume. Recommend check vitamin B12 and folic acid as deficiency risk is increased with cirrhosis. Supplement if deficient. Nutrition Interventions: Food and/or Nutrient Delivery Interventions Interventions: Meals and snacks, Medical food supplement Meals and Snacks: Fluid-modified diet, General healthful diet Goal: >50% oral intake, tolerate diet Medical Food Supplement: Commercial beverage medical food supplement therapy Goal: Boost [facility] daily to provide 530kcal and 22g protein Nutrition Education: Nutrition Monitoring and Evaluation Food/Nutrient Related History Monitoring Monitoring and Evaluation Plan: Estimated Energy Intake, Intake / amount of food Estimated Energy Intake: Energy intake 50 -75% of estimated energy needs Intake / Amount of food: Consumes at least 50% or more of meals/snacks/supplements Anthropometric Measurements Monitoring and Evaluation Plan: Body weight Body Weight: Body weight - Maintain stable weight Biochemical Data, Medical Tests and Procedures Monitoring and Evaluation Plan: Vitamin profile, Electrolyte/renal panel Electrolyte and Renal Panel: Electrolytes within normal limits Vitamin Profile: Other (Comment) (Vitamin B12, Folic Acid) Physical Exam Findings Monitoring and Evaluation Plan: Edema Edema Finding: +2 Pitting edema Goal Status: Some progress toward goal(s) Time Spent/Follow-up Reminder: [1] folic acid, 1 mg, oral, Daily furosemide, 20 mg, oral, Daily insulin lispro, 0-5 Units, subcutaneous, TID AC lactulose, 10 g, oral, TID lidocaine, 1 patch, transdermal, Daily multivitamin with minerals, 1 tablet, oral, Daily nicotine, 1 patch, transdermal, q24h pantoprazole, 40 mg, oral, Daily before breakfast [Held by provider] polyethylene glycol, 17 g, oral, Daily prednisoLONE, 40 mg, oral, Daily rifAXIMin, 550 mg, oral, q12h ANTOINE spironolactone, 50 mg, oral, Daily thiamine, 100 mg, oral, Daily [2] [3] PRN medications: alum-mag hydroxide-simeth, dextrose, dextrose, diazePAM, glucagon, glucagon, oxygen [facility] PROGRESS NOTE Reason For Consult Alcoholic Hepatitis SUBJECTIVE T-seth slight improving. INR improved post vit K 10 mg x 1. Continues to have leukocytosis. S/p paracentesis with 3.7L fluid removal. EXAM Last Recorded Vitals Blood pressure 106/71, pulse 91, temperature 36.6 C (97.9 F), temperature source Temporal, resp. rate 18, height 1.722 m (5' 7.8), weight 78.9 kg (174 lb), SpO2 94%. No intake or output data in the 24 hours ending 12/10/24 1149 Physical Exam General: Jaundiced. HEENT: EOMI. Moist mucosa Respiratory: nonlabored breathing on room air Cardiovascular: RRR, no murmurs/rubs/gallops Abdomen: Soft, distended, bowel sounds present. No masses palpated Extremities: no edema, no asterixis Neuro: alert and oriented, CNII-XII grossly intact, moves all 4 extremities with no focal deficits OBJECTIVE Medications Current Medications[1] Labs Results for orders placed or performed during the hospital encounter of 12/04/24 (from the past 24 hours) CBC and Auto Differential Result Value Ref Range WBC 22.9 (H) 4.4 - 11.3 x10*3/uL nRBC 0.0 0.0 - 0.0 /100 WBCs RBC 3.61 (L) 4.50 - 5.90 x10*6/uL Hemoglobin 13.6 13.5 - 17.5 g/dL Hematocrit 39.6 (L) 41.0 - 52.0 % MCV 110 (H) 80 - 100 fL MCH 37.7 (H) 26.0 - 34.0 pg MCHC 34.3 32.0 - 36.0 g/dL RDW 18.3 (H) 11.5 - 14.5 % Platelets 244 150 - 450 x10*3/uL Neutrophils % 77.8 40.0 - 80.0 % Immature Granulocytes %, Automated 3.1 (H) 0.0 - 0.9 % Lymphocytes % 6.0 13.0 - 44.0 % Monocytes % 12.8 2.0 - 10.0 % Eosinophils % 0.0 0.0 - 6.0 % Basophils % 0.3 0.0 - 2.0 % Neutrophils Absolute 17.78 (H) 1.20 - 7.70 x10*3/uL Immature Granulocytes Absolute, Automated 0.72 (H) 0.00 - 0.70 x10*3/uL Lymphocytes Absolute 1.38 1.20 - 4.80 x10*3/uL Monocytes Absolute 2.94 (H) 0.10 - 1.00 x10*3/uL Eosinophils Absolute 0.00 0.00 - 0.70 x10*3/uL Basophils Absolute 0.06 0.00 - 0.10 x10*3/uL Magnesium Result Value Ref Range Magnesium 2.59 (H) 1.60 - 2.40 mg/dL Hepatic Function Panel Result Value Ref Range Albumin 3.1 (L) 3.4 - 5.0 g/dL Bilirubin, Total 22.8 (H) 0.0 - 1.2 mg/dL Bilirubin, Direct 15.0 (H) 0.0 - 0.3 mg/dL Alkaline Phosphatase 165 (H) 33 - 120 U/L ALT 67 (H) 10 - 52 U/L AST 134 (H) 9 - 39 U/L Total Protein 5.5 (L) 6.4 - 8.2 g/dL Coagulation Screen Result Value Ref Range Protime 15.5 (H) 9.8 - 12.4 seconds INR 1.4 (H) 0.9 - 1.1 aPTT 28 26 - 36 seconds Phosphorus Result Value Ref Range Phosphorus 2.0 (L) 2.5 - 4.9 mg/dL Basic Metabolic Panel Result Value Ref Range Glucose 109 (H) 74 - 99 mg/dL Sodium 132 (L) 136 - 145 mmol/L Potassium 3.4 (L) 3.5 - 5.3 mmol/L Chloride 92 (L) 98 - 107 mmol/L Bicarbonate 30 21 - 32 mmol/L Anion Gap 13 10 - 20 mmol/L Urea Nitrogen 12 6 - 23 mg/dL Creatinine 0.64 0.50 - 1.30 mg/dL eGFR >90 >60 mL/min/1.73m*2 Calcium 8.5 (L) 8.6 - 10.6 mg/dL Albumin, Body Fluid Result Value Ref Range Albumin, Fluid 1.0 Not established g/dL Amylase, Body Fluid Result Value Ref Range Amylase, Fluid 10 Not established. U/L Body Fluid Cell Count Result Value Ref Range Color, Fluid Yellow Colorless, Straw, Yellow Clarity, Fluid Clear Clear WBC, Fluid 38 See Comment /uL RBC, Fluid 252 see comment /uL Cholesterol, Body Fluid Result Value Ref Range Cholesterol, Fluid <25 Not established mg/dL Glucose, Body Fluid Result Value Ref Range Glucose, Fluid 134 Not established mg/dL Lactate Dehydrogenase, Body Fluid Result Value Ref Range LD, Fluid 48 Not established. U/L Bilirubin, Total, Body Fluid Result Value Ref Range Total Bili, Fluid 6.3 Not established mg/dL Protein, Total, Body Fluid Result Value Ref Range Protein, Total Fluid 1.5 Not established g/dL Urea Nitrogen, Body Fluid Result Value Ref Range Urea Nitrogen, Fluid 12 Not established mg/dL POCT GLUCOSE Result Value Ref Range POCT Glucose 94 74 - 99 mg/dL Imaging === 12/04/24 === US ABDOMEN LIMITED - Impression - 1. The patient declined to complete the examination. 2. Cirrhotic morphology of the liver with moderate volume intra-abdominal ascites of the images obtained before the patient terminated the exam. GI Procedures ASSESSMENT / PLAN ASSESSMENT/PLAN: Jose Parker is a 44 y.o. male with a past medical history of alcohol use disorder, hepatic steatosis presenting with abdomina distention, pain and jaundice admitted on 12/04/2024 concerned for alcohol withdrawal/alcoholic hepatitis. MELD 3.0: 20 at 12/10/2024 8:56 AM MELD-Na: 21 at 12/10/2024 8:56 AM Calculated from: Serum Creatinine: 0.64 mg/dL (Using min of 1 mg/dL) at 12/10/2024 7:17 AM Serum Sodium: 132 mmol/L at 12/10/2024 7:17 AM Total Bilirubin: 6.3 mg/dL at 12/10/2024 8:56 AM Serum Albumin: 3.1 g/dL at 12/10/2024 7:17 AM INR(ratio): 1.4 at 12/10/2024 7:17 AM Age at listing (hypothetical): 44 years Sex: Male at 12/10/2024 8:56 AM #Alcohol withdrawal #Alcoholic hepatitis Presentation is consistent with alcohol withdrawal with elevated CIWA requiring BDZ. reports the patient never having withdrawal in the past. Patient was first found to have alcoholic hepatitis in 2021 when he was told to stop alcohol but has been continuously drinking 3~4 mixed vodka drinks until recently. PETH from this admission is very elevated at 1798. Lab is consistent with alcoholic hepatitis (T seth 17.6, AST 133/ALT 53>2, ALP 173). Low Na 129. MDF 58>32. Paracentesis on 12/04 with WBC 133 ruling out SBP. No albumin collected to calculate SAAG. Low TP of 2.0. UA neg. CT head negative for any acute process. Blood culture from 12/04 negative. Plan for repeat giving persistently elevated WBC though could be from steroid. The patient has started on steroid on 12/08. Plan to monitor the response based on Lille score to determine the length of prednisone. So far, bilirubin/INR has been somewhat improving. Plan -Repeat blood culture giving persistently elevated WBC -Await paracentesis fluid analysis -Continue prednisolone 40mg daily -Continue rifaximin/lactulose -Continue thiamin/MVI -Daily MELD lab (CBC, LFT, BMP, INR) -Transition from IV lasix to PO and continue aldactone PO. Depending on response and electrolytes, dose to be increased. Patient was seen and discussed with Dr. Renteria. Thank you for this interesting consult. Gastroenterology will continue to follow. -During weekday hours of 7am-5pm please do not hesitate to contact me on [employer] Chat or page [phone] if there are any further questions between the weekday hours of 7 AM - 5 PM. -After hours, on weekends, and on holidays, [place] [phone]. Thank you. Elena Quinteros MD Gastroenterology Fellow, PGY-6 [1] Current Facility-Administered Medications: alum-mag hydroxide-simeth (Mylanta) 200-200-20 mg/5 mL oral suspension 20 mL, 20 mL, oral, 4x daily PRN, Arin Gonsalez MD, 20 mL at 12/08/24 1753 dextrose 50 % injection 12.5 g, 12.5 g, intravenous, q15 min PRN, Arin Gonsalez MD dextrose 50 % injection 25 g, 25 g, intravenous, q15 min PRN, Arin Gonsalez MD diazePAM (Valium) injection 10 mg, 10 mg, intravenous, q2h PRN, Gamal Garcia MD, 10 mg at 12/05/24 1325 folic acid (Folvite) tablet 1 mg, 1 mg, oral, Daily, Azalia Zamora MD, 1 mg at 12/10/24 0957 furosemide (Lasix) tablet 20 mg, 20 mg, oral, Daily, Arin Gonsalez MD glucagon (Glucagen) injection 1 mg, 1 mg, intramuscular, q15 min PRN, Arin Gonsalez MD glucagon (Glucagen) injection 1 mg, 1 mg, intramuscular, q15 min PRN, Arin Gonsalez MD insulin lispro injection 0-5 Units, 0-5 Units, subcutaneous, TID AC, Arin Gonsalez MD lactulose 20 gram/30 mL oral solution 10 g, 10 g, oral, TID, Gregor Mayfield MD, 10 g at 12/10/24 1001 lidocaine 4 % patch 1 patch, 1 patch, transdermal, Daily, Arin Gonsalez MD, 1 patch at 12/09/24 0814 multivitamin with minerals 1 tablet, 1 tablet, oral, Daily, Azalia Zamora MD, 1 tablet at 12/10/24 0957 nicotine (Nicoderm CQ) 14 mg/24 hr patch 1 patch, 1 patch, transdermal, q24h, Naomi Chakraborty MD, 1 patch at 12/09/24 1408 oxygen (O2) therapy, 1 Dose, inhalation, Continuous - O2/gases, Giovany Ram MD, 1 Dose at 12/10/24 0517 pantoprazole (ProtoNix) EC tablet 40 mg, 40 mg, oral, Daily before breakfast, Arin Gonsalez MD, 40 mg at 12/10/24 0637 [Held by provider] polyethylene glycol (Glycolax, Miralax) packet 17 g, 17 g, oral, Daily, Azalia Zamora MD prednisoLONE (Sterane) tablet 40 mg, 40 mg, oral, Daily, Arin Gonsalez MD, 40 mg at 12/10/24 0956 rifAXIMin (Xifaxan) tablet 550 mg, 550 mg, oral, q12h ANTOINE, Azalia Zamora MD, 550 mg at 12/10/24 0957 spironolactone (Aldactone) tablet 50 mg, 50 mg, oral, Daily, Naomi Chakraborty MD, 50 mg at 12/10/24 0957 thiamine (Vitamin B-1) tablet 100 mg, 100 mg, oral, Daily, Azalia Zamora MD, 100 mg at 12/10/24 0957 Cosigned by Alessandro Renteria MD at 12/10/2024 12:03 PM EDT Associated attestation - Alessandro Renteria MD - 12/10/2024 12:03 PM EDT Attending addendum: I saw and evaluated the patient. I personally obtained the critical portions of the history and physical exam. The case was discussed in detail with the fellow; including, but not limited to the chief complaint, HPI, past history, physical findings, labs and radiological findings. I agree with the fellow's medical decision making as documented in the fellow's note. The patient was counseled on the possible differential diagnoses and testing needed to arrive at a diagnosis or a treatment plan. The patient had a 3.7 L paracentesis today and feels much better. We are awaiting the results of the studies to make sure there is no evidence of SBP. His white blood cell count remains elevated. This could obviously be the alcoholic hepatitis, steroids, or infection. I would recommend 1 more set of blood cultures. He is now on day 3 of steroids. We will follow his Lille score at day 5 to determine if his steroids are beneficial and whether we should continue these. His INR did improve with the vitamin K. This will be factored into his Lille score. We would not be opposed to his primary team increasing his oral diuretics. Alessandro Renteria MD, CRISTINA, FAASLD, [facility] D[facility], Hepatology Senior Attending Physician [facility] accounts receivable assistant Division of Gastroenterology and Liver Disease [facility] [employer] [address] [place] [phone] 12/10/24 1036 Rapid Rounds Attendance Provider;Nurse;Care Transitions Expected Discharge Disposition Home Today we still await: Clinical stability;Diagnostic workup;Symptomatic control (hepatolgy recs) Review at Escalation Rounds No escalation needed TCC will continue to follow and update the plan as warranted. OPAL LuisN-service member Coordinator (TCC) [phone] ext [phone] [facility] PROGRESS NOTE Reason For Consult Alcoholic Hepatitis SUBJECTIVE AAO X 3. Endorses nausea which he thinks from steroid. INR still elevated. EXAM Last Recorded Vitals Blood pressure 102/66, pulse 89, temperature 37.1 C (98.8 F), temperature source Temporal, resp. rate 17, height 1.722 m (5' 7.8), weight 78.9 kg (174 lb), SpO2 91%. No intake or output data in the 24 hours ending 12/09/24 1611 Physical Exam General: Jaundiced. HEENT: EOMI. Moist mucosa Respiratory: nonlabored breathing on room air Cardiovascular: RRR, no murmurs/rubs/gallops Abdomen: Soft, distended, bowel sounds present. No masses palpated Extremities: no edema, no asterixis Neuro: alert and oriented, CNII-XII grossly intact, moves all 4 extremities with no focal deficits OBJECTIVE Medications Current Medications[1] Labs Results for orders placed or performed during the hospital encounter of 12/04/24 (from the past 24 hours) POCT GLUCOSE Result Value Ref Range POCT Glucose 131 (H) 74 - 99 mg/dL POCT GLUCOSE Result Value Ref Range POCT Glucose 145 (H) 74 - 99 mg/dL CBC and Auto Differential Result Value Ref Range WBC 19.4 (H) 4.4 - 11.3 x10*3/uL nRBC 0.0 0.0 - 0.0 /100 WBCs RBC 3.57 (L) 4.50 - 5.90 x10*6/uL Hemoglobin 13.8 13.5 - 17.5 g/dL Hematocrit 38.7 (L) 41.0 - 52.0 % MCV 108 (H) 80 - 100 fL MCH 38.7 (H) 26.0 - 34.0 pg MCHC 35.7 32.0 - 36.0 g/dL RDW 18.3 (H) 11.5 - 14.5 % Platelets 193 150 - 450 x10*3/uL Neutrophils % 80.6 40.0 - 80.0 % Immature Granulocytes %, Automated 1.9 (H) 0.0 - 0.9 % Lymphocytes % 5.9 13.0 - 44.0 % Monocytes % 11.3 2.0 - 10.0 % Eosinophils % 0.1 0.0 - 6.0 % Basophils % 0.2 0.0 - 2.0 % Neutrophils Absolute 15.64 (H) 1.20 - 7.70 x10*3/uL Immature Granulocytes Absolute, Automated 0.36 0.00 - 0.70 x10*3/uL Lymphocytes Absolute 1.15 (L) 1.20 - 4.80 x10*3/uL Monocytes Absolute 2.20 (H) 0.10 - 1.00 x10*3/uL Eosinophils Absolute 0.01 0.00 - 0.70 x10*3/uL Basophils Absolute 0.04 0.00 - 0.10 x10*3/uL Magnesium Result Value Ref Range Magnesium 2.60 (H) 1.60 - 2.40 mg/dL Hepatic Function Panel Result Value Ref Range Albumin 3.2 (L) 3.4 - 5.0 g/dL Bilirubin, Total 23.1 (H) 0.0 - 1.2 mg/dL Bilirubin, Direct 15.9 (H) 0.0 - 0.3 mg/dL Alkaline Phosphatase 163 (H) 33 - 120 U/L ALT 60 (H) 10 - 52 U/L AST 138 (H) 9 - 39 U/L Total Protein 5.7 (L) 6.4 - 8.2 g/dL Coagulation Screen Result Value Ref Range Protime 20.7 (H) 9.8 - 12.4 seconds INR 1.9 (H) 0.9 - 1.1 aPTT 30 26 - 36 seconds Phosphorus Result Value Ref Range Phosphorus 1.9 (L) 2.5 - 4.9 mg/dL Basic Metabolic Panel Result Value Ref Range Glucose 101 (H) 74 - 99 mg/dL Sodium 131 (L) 136 - 145 mmol/L Potassium 3.4 (L) 3.5 - 5.3 mmol/L Chloride 90 (L) 98 - 107 mmol/L Bicarbonate 30 21 - 32 mmol/L Anion Gap 14 10 - 20 mmol/L Urea Nitrogen 10 6 - 23 mg/dL Creatinine 0.65 0.50 - 1.30 mg/dL eGFR >90 >60 mL/min/1.73m*2 Calcium 8.5 (L) 8.6 - 10.6 mg/dL POCT GLUCOSE Result Value Ref Range POCT Glucose 101 (H) 74 - 99 mg/dL Imaging === 12/04/24 === US ABDOMEN LIMITED - Impression - 1. The patient declined to complete the examination. 2. Cirrhotic morphology of the liver with moderate volume intra-abdominal ascites of the images obtained before the patient terminated the exam. GI Procedures ASSESSMENT / PLAN ASSESSMENT/PLAN: Jose Parker is a 44 y.o. male with a past medical history of alcohol use disorder, hepatic steatosis presenting with abdomina distention, pain and jaundice admitted on 12/04/2024 concerned for alcohol withdrawal/alcoholic hepatitis. MELD 3.0: 27 at 12/09/2024 7:33 AM MELD-Na: 28 at 12/09/2024 7:33 AM Calculated from: Serum Creatinine: 0.65 mg/dL (Using min of 1 mg/dL) at 12/09/2024 7:33 AM Serum Sodium: 131 mmol/L at 12/09/2024 7:33 AM Total Bilirubin: 23.1 mg/dL at 12/09/2024 7:33 AM Serum Albumin: 3.2 g/dL at 12/09/2024 7:33 AM INR(ratio): 1.9 at 12/09/2024 7:33 AM Age at listing (hypothetical): 44 years Sex: Male at 12/09/2024 7:33 AM #Alcohol withdrawal #Alcoholic hepatitis Presentation is consistent with alcohol withdrawal with elevated CIWA requiring BDZ. reports the patient never having withdrawal in the past. Patient was first found to have alcoholic hepatitis in 2021 when he was told to stop alcohol but has been continuously drinking 3~4 mixed vodka drinks until recently. PETH from this admission is very elevated at 1798. Lab is consistent with alcoholic hepatitis (T seth 17.6, AST 133/ALT 53>2, ALP 173). Low Na 129. MDF 58>32. Paracentesis on 12/04 with WBC 133 ruling out SBP. No albumin collected to calculate SAAG. Low TP of 2.0. UA neg. CT head negative for any acute process. Blood culture from 12/04 negative. The patient has started on steroid on 12/08. Plan to monitor the response based on Lille score to determine the length of prednisone. Giving persistently elevated INR, we advise for vit K for possible underlying malnutrition. Plan -please administer Vit K 10mg IV x 1 -please switch prednisone to prednisolone 40mg daily -please repeat diagnostic/therapeutic paracentesis given leukocytosis. -Continue rifaximin/lactulose -Continue thiamin/MVI -Daily MELD lab (CBC, LFT, BMP, INR) Patient was seen and discussed with Dr. Renteria. Thank you for this interesting consult. Gastroenterology will continue to follow. -During weekday hours of 7am-5pm please do not hesitate to contact me on [employer] Chat or page [phone] if there are any further questions between the weekday hours of 7 AM - 5 PM. -After hours, on weekends, and on holidays, [place] [phone]. Thank you. Elena Quinteros MD Gastroenterology Fellow, PGY-6 [1] Current Facility-Administered Medications: alum-mag hydroxide-simeth (Mylanta) 200-200-20 mg/5 mL oral suspension 20 mL, 20 mL, oral, 4x daily PRN, Arin Gonsalez MD, 20 mL at 12/08/24 1753 dextrose 50 % injection 12.5 g, 12.5 g, intravenous, q15 min PRN, Arin Gonsalez MD dextrose 50 % injection 25 g, 25 g, intravenous, q15 min PRN, Arin Gonsalez MD diazePAM (Valium) injection 10 mg, 10 mg, intravenous, q2h PRN, Gamal Garcia MD, 10 mg at 12/05/24 1325 folic acid (Folvite) tablet 1 mg, 1 mg, oral, Daily, Azalia Zamora MD, 1 mg at 12/09/24 0813 furosemide (Lasix) injection 20 mg, 20 mg, intravenous, Daily, Arin Gonsalez MD, 20 mg at 12/09/24 0812 glucagon (Glucagen) injection 1 mg, 1 mg, intramuscular, q15 min PRN, Arin Gonsalez MD glucagon (Glucagen) injection 1 mg, 1 mg, intramuscular, q15 min PRN, Arin Gonsalez MD insulin lispro injection 0-5 Units, 0-5 Units, subcutaneous, TID AC, Arin Gonsalez MD lactulose 20 gram/30 mL oral solution 10 g, 10 g, oral, TID, Gregor Mayfield MD, 10 g at 12/08/242057 lidocaine 4 % patch 1 patch, 1 patch, transdermal, Daily, Arin Gonsalez MD, 1 patch at 12/09/24 0814 multivitamin with minerals 1 tablet, 1 tablet, oral, Daily, Azalia Zamora MD, 1 tablet at 12/09/24 0812 nicotine (Nicoderm CQ) 14 mg/24 hr patch 1 patch, 1 patch, transdermal, q24h, Naomi Chakraborty MD, 1 patch at 12/09/24 1408 oxygen (O2) therapy, 1 Dose, inhalation, Continuous - O2/gases, Giovany Ram MD pantoprazole (ProtoNix) EC tablet 40 mg, 40 mg, oral, Daily before breakfast, Arin Gonsalez MD, 40 mg at 12/09/24 0646 [Held by provider] polyethylene glycol (Glycolax, Miralax) packet 17 g, 17 g, oral, Daily, Azalia Zamora MD prednisoLONE (Sterane) tablet 40 mg, 40 mg, oral, Daily, Arin Gonsalez MD, 40 mg at 12/09/24 1319 rifAXIMin (Xifaxan) tablet 550 mg, 550 mg, oral, q12h ANTOINE, Azalia Zamora MD, 550 mg at 12/09/24 0812 spironolactone (Aldactone) tablet 50 mg, 50 mg, oral, Daily, Naomi Chakraborty MD, 50 mg at 12/09/24 0812 thiamine (Vitamin B-1) tablet 100 mg, 100 mg, oral, Daily, Azalia Zamora MD, 100 mg at 12/09/24 0813 Cosigned by Alessandro Renteria MD at 12/09/2024 4:21 PM EDT Associated attestation - Alessandro Renteria MD - 12/09/2024 4:21 PM EDT Attending addendum: I saw and evaluated the patient. I personally obtained the critical portions of the history and physical exam. The case was discussed in detail with the fellow; including, but not limited to the chief complaint, HPI, past history, physical findings, labs and radiological findings. I agree with the fellow's medical decision making as documented in the fellow's note. The patient was counseled on the possible differential diagnoses and testing needed to arrive at a diagnosis or a treatment plan. The patient had no particular issues or complaints overnight. He continues to have some abdominal bloating. He did not undergo paracentesis yesterday. I would still recommend diagnostic and therapeutic paracentesis. He has been started on low-dose diuretics. He was started on prednisone 40 mg daily by the primary team. His white count is elevated which can go along with acute alcoholic hepatitis. Again, I would make sure that there is no evidence of SBP on the paracentesis. Given the fact that they have started him on prednisone, I would recommend switching to prednisolone as an option for his alcoholic hepatitis instead. We can check his liver function and Lille score at day 5 to see if he is having a response for his alcoholic hepatitis. I would give him 1 shot of IV vitamin K 10 mg to make sure that he is not having any coagulopathy from vitamin K deficiency from the cholestasis. Alessandro Renteria MD, CRISTINA, FAAS, [facility] Application Dba, Hepatology Senior Attending Physician [facility] accounts receivable assistant Division of Gastroenterology and Liver Disease [facility] [employer] [facility] [address] [place] [id number] [facility] PROGRESS NOTE Reason For Consult Alcoholic Hepatitis SUBJECTIVE AAO X 3. Much oriented. T-seth is still elevated. PETH 1798. EXAM Last Recorded Vitals Blood pressure 106/68, pulse 98, temperature 36.8 C (98.2 F), resp. rate 18, height 1.722 m (5' 7.8), weight 78.9 kg (174 lb), SpO2 92%. Intake/Output Summary (Last 24 hours) at 12/08/2024 1145 Last data filed at 12/07/2024 1438 Gross per 24 hour Intake 620 ml Output -- Net 620 ml Physical Exam General: Jaundiced. HEENT: EOMI. Moist mucosa Respiratory: nonlabored breathing on room air Cardiovascular: RRR, no murmurs/rubs/gallops Abdomen: Soft, distended, bowel sounds present. No masses palpated Extremities: no edema, no asterixis Neuro: alert and oriented, CNII-XII grossly intact, moves all 4 extremities with no focal deficits OBJECTIVE Medications Current Medications[1] Labs Results for orders placed or performed during the hospital encounter of 12/04/24 (from the past 24 hours) Magnesium Result Value Ref Range Magnesium 2.44 (H) 1.60 - 2.40 mg/dL Hepatic Function Panel Result Value Ref Range Albumin 3.1 (L) 3.4 - 5.0 g/dL Bilirubin, Total 21.0 (H) 0.0 - 1.2 mg/dL Bilirubin, Direct 14.4 (H) 0.0 - 0.3 mg/dL Alkaline Phosphatase 359 (H) 33 - 120 U/L ALT 50 10 - 52 U/L AST 130 (H) 9 - 39 U/L Total Protein 5.7 (L) 6.4 - 8.2 g/dL Coagulation Screen Result Value Ref Range Protime 19.3 (H) 9.8 - 12.4 seconds INR 1.7 (H) 0.9 - 1.1 aPTT 31 26 - 36 seconds Phosphorus Result Value Ref Range Phosphorus 2.3 (L) 2.5 - 4.9 mg/dL Basic Metabolic Panel Result Value Ref Range Glucose 88 74 - 99 mg/dL Sodium 132 (L) 136 - 145 mmol/L Potassium 4.1 3.5 - 5.3 mmol/L Chloride 93 (L) 98 - 107 mmol/L Bicarbonate 27 21 - 32 mmol/L Anion Gap 16 10 - 20 mmol/L Urea Nitrogen 7 6 - 23 mg/dL Creatinine 0.70 0.50 - 1.30 mg/dL eGFR >90 >60 mL/min/1.73m*2 Calcium 8.5 (L) 8.6 - 10.6 mg/dL Imaging === 12/04/24 === US ABDOMEN LIMITED - Impression - 1. The patient declined to complete the examination. 2. Cirrhotic morphology of the liver with moderate volume intra-abdominal ascites of the images obtained before the patient terminated the exam. GI Procedures ASSESSMENT / PLAN ASSESSMENT/PLAN: Jose Parker is a 44 y.o. male with a past medical history of alcohol use disorder, hepatic steatosis presenting with abdomina distention, pain and jaundice admitted on 12/04/2024 concerned for alcohol withdrawal/alcoholic hepatitis. MELD 3.0: 26 at 12/08/2024 6:15 AM MELD-Na: 27 at 12/08/2024 6:15 AM Calculated from: Serum Creatinine: 0.7 mg/dL (Using min of 1 mg/dL) at 12/08/2024 6:15 AM Serum Sodium: 132 mmol/L at 12/08/2024 6:15 AM Total Bilirubin: 21 mg/dL at 12/08/2024 6:15 AM Serum Albumin: 3.1 g/dL at 12/08/2024 6:15 AM INR(ratio): 1.7 at 12/08/2024 6:15 AM Age at listing (hypothetical): 44 years Sex: Male at 12/08/2024 6:15 AM #Alcohol withdrawal #Alcoholic hepatitis Presentation is consistent with alcohol withdrawal with elevated CIWA requiring BDZ. reports the patient never having withdrawal in the past. Patient was first found to have alcoholic hepatitis in 2021 when he was told to stop alcohol but has been continuously drinking 3~4 mixed vodka drinks until recently. PETH from this admission is very elevated at 1798. Lab is consistent with alcoholic hepatitis (T seth 17.6, AST 133/ALT 53>2, ALP 173). Low Na 129. MDF 58>32. Paracentesis on 12/04 with WBC 133 ruling out SBP. No albumin collected to calculate SAAG. Low TP of 2.0. UA neg. CT head negative for any acute process. Blood culture from 12/04 negative. We could consider steroid for alcoholic hepatitis if all the infectious work negative at 72 hours and lab show no improvement of liver function (T-seth/INR). The patient has started on prednisone per primary team. Plan to monitor the response based on Lille score to determine the length of prednisone. Plan -please repeat diagnostic/therapeutic paracentesis given leukocytosis. -Continue rifaximin/lactulose -Continue thiamin/MVI -Daily MELD lab (CBC, LFT, BMP, INR) Patient was seen and discussed with Dr. Renteria. Thank you for this interesting consult. Gastroenterology will continue to follow. -During weekday hours of 7am-5pm please do not hesitate to contact me on Epic Chat or page [phone] if there are any further questions between the weekday hours of 7 AM - 5 PM. -After hours, on weekends, and on holidays, [place] [phone]. Thank you. Elena Quinteros MD Gastroenterology Fellow, PGY-6 [1] Current Facility-Administered Medications: diazePAM (Valium) injection 10 mg, 10 mg, intravenous, q2h PRN, Gamal Garcia MD, 10 mg at 12/05/24 1325 folic acid (Folvite) tablet 1 mg, 1 mg, oral, Daily, Azalia Zamora MD, 1 mg at 12/08/24 0858 furosemide (Lasix) tablet 20 mg, 20 mg, oral, Daily, Naomi Chakraborty MD, 20 mg at 12/08/24 0858 lactulose 20 gram/30 mL oral solution 10 g, 10 g, oral, TID, Gregor Mayfield MD, 10 g at 12/08/24 0858 lidocaine 4 % patch 1 patch, 1 patch, transdermal, Daily, Arin Gonsalez MD, 1 patch at 12/08/24 0858 multivitamin with minerals 1 tablet, 1 tablet, oral, Daily, Azalia Zamora MD, 1 tablet at 12/08/24 0858 nicotine (Nicoderm CQ) 14 mg/24 hr patch 1 patch, 1 patch, transdermal, q24h, Naomi Chakraborty MD, 1 patch at 12/07/24 1438 oxygen (O2) therapy, 1 Dose, inhalation, Continuous - O2/gases, Giovany Ram MD [Held by provider] piperacillin-tazobactam (Zosyn) 3.375 g in dextrose (iso) IV 50 mL, 3.375 g, intravenous, q6h, Azalia Zamora MD, Stopped at 12/07/24 0216 polyethylene glycol (Glycolax, Miralax) packet 17 g, 17 g, oral, Daily, Azalia Zamora MD predniSONE (Deltasone) tablet 40 mg, 40 mg, oral, Daily, Arin Gonsalez MD rifAXIMin (Xifaxan) tablet 550 mg, 550 mg, oral, q12h ANTOINE, Azalia Zamora MD, 550 mg at 12/08/24 0858 spironolactone (Aldactone) tablet 50 mg, 50 mg, oral, Daily, Naomi Chakraborty MD, 50 mg at 12/08/24 0858 thiamine (Vitamin B-1) tablet 100 mg, 100 mg, oral, Daily, Azalia Zamora MD, 100 mg at 12/08/24 0523 Cosigned by Alessandro Renteria MD at 12/08/2024 12:15 PM EDT Associated attestation - Alessandro Renteria MD - 12/08/2024 12:15 PM EDT Attending addendum: I saw and evaluated the patient. I personally obtained the critical portions of the history and physical exam. The case was discussed in detail with the fellow; including, but not limited to the chief complaint, HPI, past history, physical findings, labs and radiological findings. I agree with the fellow's medical decision making as documented in the fellow's note. The patient was counseled on the possible differential diagnoses and testing needed to arrive at a diagnosis or a treatment plan. Other than abdominal bloating, the patient had no other specific major complaints today. His PETH level came back extremely elevated at 1800. Again, he is aware that he needs to avoid absolutely all alcohol use and get into a formal alcohol rehab program. I would recommend diagnostic and therapeutic paracentesis. He is more distended with ascites today. We will await his labs today as well as his peripheral white blood cell count. If there is no evidence of infection and his liver tests are not improving, we could consider steroids for his severe alcoholic hepatitis. Again, he is aware that he is not a candidate for liver transplant. If he were to remain abstinent to complete a formal alcohol rehab program, this could be addressed in the future. Alessandro Renteria MD, CRISTINA, FAASLD, [facility] Application Dba, Hepatology Senior Attending Physician [facility] accounts receivable assistant Division of Gastroenterology and Liver Disease [facility] [employer] [address] [place] [id number] Jose Parker is a 44 y.o. male on day 3 of admission presenting with Generalized abdominal pain. Subjective - No acute events overnight - Endorses some upper epigastric pain but unchanged distension Objective Last Recorded Vitals BP 106/68 Pulse 98 Temp 36.8 C (98.2 F) Resp 18 Wt 78.9 kg (174 lb) SpO2 92% Intake/Output last 3 Shifts: Intake/Output Summary (Last 24 hours) at 12/08/2024 1112 Last data filed at 12/07/2024 1438 Gross per 24 hour Intake 620 ml Output -- Net 620 ml Admission Weight Weight: 79.1 kg (174 lb 6.4 oz) (12/04/24 1920) Daily Weight 12/05/24 : 78.9 kg (174 lb) Image Results Vascular US abdomen/pelvis duplex complete Narrative: Interpreted By: Houston Avalos and Sheng Max STUDY: [facility] US ABDOMINAL/PELVIC DUPLEX COMPLETE; 12/07/2024 12:52 pm INDICATION: Signs/Symptoms:Liver doppler. ,R10.84 Generalized abdominal pain COMPARISON: US ABDOMEN LIMITED 2024, MR INTERPRETATION OF OUTSIDE FILMS 12/04/2024, CT INTERPRETATION OF OUTSIDE FILMS 12/02/2024 ACCESSION NUMBER(S): [id number] ORDERING CLINICIAN: BRIANNA SINGH TECHNIQUE: Multiple color and spectral Doppler images of the liver and spleen were obtained. This examination was interpreted at [facility]. FINDINGS: DOPPLER EVALUATION: HEPATIC ARTERIES: The following demonstrate patency and appropriate direction of flow: * Main hepatic artery RI 0.56 * Right hepatic artery RI 0.53 * Left hepatic artery RI 0.75 SPLENIC VEIN: Splenic vein calculated velocity of 13.8 cm/s. RIGHT AND LEFT PORTAL VENOUS BRANCHES: Portal vein velocities are calculated as follows: * Main portal vein 14.7 cm/s * Right portal vein anterior branch 14.6 cm/s * Right portal vein posterior branch 1.6 cm/s * Left portal vein 21.2 cm/s HEPATIC VEIN: The main, left and right hepatic veins are patent. The main, left and right hepatic veins demonstrate triphasic flow. IVC appears patent. Incidentally noted recanalization of the paraumbilical vein (image 24-). SPLEEN: The spleen measures 13.9 cm and is grossly unremarkable. OTHER: The partially imaged liver demonstrates nodular contour and diffuse coarse echogenicity similar compared to prior ultrasound consistent with hepatic steatosis and cirrhosis. Small volume free fluid is noted surrounding the perihepatic spaces (image 10-03/12). Impression: 1. Patent hepatic vasculature, as described. 2. Partially visualized cirrhotic morphology of the liver with findings compatible with portal hypertension including splenomegaly, small perihepatic ascites, slow flow within the portal venous system, and lies paraumbilical vein. I personally reviewed the images/study and I agree with the findings as stated by Dr. Jama Dominguez. This study was interpreted at [place], [place]. MACRO: None Signed by: Houston Avalos 12/07/2024 7:03 PM Dictation workstation: [id number] Physical Exam Constitutional: Appearance: Normal appearance. HENT: Head: Normocephalic. Cardiovascular: Rate and Rhythm: Normal rate and regular rhythm. Pulses: Normal pulses. Pulmonary: Effort: Pulmonary effort is normal. Abdominal: General: There is distension. Palpations: Abdomen is soft. Skin: General: Skin is warm. Coloration: Skin is jaundiced. Neurological: General: No focal deficit present. Mental Status: He is alert. Relevant Results Results for orders placed or performed during the hospital encounter of 12/04/24 (from the past 24 hours) Magnesium Result Value Ref Range Magnesium 2.44 (H) 1.60 - 2.40 mg/dL Hepatic Function Panel Result Value Ref Range Albumin 3.1 (L) 3.4 - 5.0 g/dL Bilirubin, Total 21.0 (H) 0.0 - 1.2 mg/dL Bilirubin, Direct 14.4 (H) 0.0 - 0.3 mg/dL Alkaline Phosphatase 359 (H) 33 - 120 U/L ALT 50 10 - 52 U/L AST 130 (H) 9 - 39 U/L Total Protein 5.7 (L) 6.4 - 8.2 g/dL Coagulation Screen Result Value Ref Range Protime 19.3 (H) 9.8 - 12.4 seconds INR 1.7 (H) 0.9 - 1.1 aPTT 31 26 - 36 seconds Phosphorus Result Value Ref Range Phosphorus 2.3 (L) 2.5 - 4.9 mg/dL Basic Metabolic Panel Result Value Ref Range Glucose 88 74 - 99 mg/dL Sodium 132 (L) 136 - 145 mmol/L Potassium 4.1 3.5 - 5.3 mmol/L Chloride 93 (L) 98 - 107 mmol/L Bicarbonate 27 21 - 32 mmol/L Anion Gap 16 10 - 20 mmol/L Urea Nitrogen 7 6 - 23 mg/dL Creatinine 0.70 0.50 - 1.30 mg/dL eGFR >90 >60 mL/min/1.73m*2 Calcium 8.5 (L) 8.6 - 10.6 mg/dL Vascular US abdomen/pelvis duplex complete Result Date: 12/07/2024 Interpreted By: Houston Avalos and Sheng Max STUDY: [facility] US ABDOMINAL/PELVIC DUPLEX COMPLETE; 12/07/2024 12:52 pm INDICATION: Signs/Symptoms:Liver doppler. ,R10.84 Generalized abdominal pain COMPARISON: US ABDOMEN LIMITED 2024, MR INTERPRETATION OF OUTSIDE FILMS 12/04/2024, CT INTERPRETATION OF OUTSIDE FILMS 12/02/2024 ACCESSION NUMBER(S): [id number] ORDERING CLINICIAN: BRIANNA SINGH TECHNIQUE: Multiple color and spectral Doppler images of the liver and spleen were obtained. This examination was interpreted at [facility]. FINDINGS: DOPPLER EVALUATION: HEPATIC ARTERIES: The following demonstrate patency and appropriate direction of flow: * Main hepatic artery RI 0.56 * Right hepatic artery RI 0.53 * Left hepatic artery RI 0.75 SPLENIC VEIN: Splenic vein calculated velocity of 13.8 cm/s. RIGHT AND LEFT PORTAL VENOUS BRANCHES: Portal vein velocities are calculated as follows: * Main portal vein 14.7 cm/s * Right portal vein anterior branch 14.6 cm/s * Right portal vein posterior branch 1.6 cm/s * Left portal vein 21.2 cm/s HEPATIC VEIN: The main, left and right hepatic veins are patent. The main, left and right hepatic veins demonstrate triphasic flow. IVC appears patent. Incidentally noted recanalization of the paraumbilical vein (image 24-). SPLEEN: The spleen measures 13.9 cm and is grossly unremarkable. OTHER: The partially imaged liver demonstrates nodular contour and diffuse coarse echogenicity similar compared to prior ultrasound consistent with hepatic steatosis and cirrhosis. Small volume free fluid is noted surrounding the perihepatic spaces (image 10-03/12). 1. Patent hepatic vasculature, as described. 2. Partially visualized cirrhotic morphology of the liver with findings compatible with portal hypertension including splenomegaly, small perihepatic ascites, slow flow within the portal venous system, and lies paraumbilical vein. I personally reviewed the images/study and I agree with the findings as stated by Dr. Jama Dominguez. This study was interpreted at [place], [place]. MACRO: None Signed by: Houston Avalos 12/07/2024 7:03 PM Dictation workstation: [id number] CT head wo IV contrast Result Date: 12/06/2024 Interpreted By: Ignacio Torres, STUDY: CT HEAD WO IV CONTRAST; 12/06/2024 8:10 am INDICATION: Signs/Symptoms:altered mental status. COMPARISON: None. ACCESSION NUMBER(S): [id number] ORDERING CLINICIAN: BRIANNA SINGH TECHNIQUE: Axial noncontrast head CT FINDINGS: Parenchyma: The paz-white differentiation is intact. There is no mass effect or midline shift. There is no intracranial hemorrhage. CSF Spaces: The ventricles, sulci and basal cisterns are within normal limits. There is no extraaxial fluid collection. Calvarium: The calvarium is unremarkable. Paranasal sinuses and mastoids: Visualized paranasal sinuses and mastoids are clear. Incidental note is made of incomplete arch of the C1 vertebral body posteriorly. No acute intracranial abnormality was identified within the limits of noncontrast head CT. Signed by: Ignacio Torres 12/06/2024 5:35 PM Dictation workstation: [id number] US abdomen limited Result Date: 2024 Interpreted By: Mina España and Stevens Alex STUDY: US ABDOMEN LIMITED; 2024 9:15 am INDICATION: Signs/Symptoms:new liver disease. COMPARISON: None. ACCESSION NUMBER(S): [id number] ORDERING CLINICIAN: VERO MACHADO TECHNIQUE: Multiple images of the right upper quadrant were obtained. Underwood scale, color Doppler and spectral Doppler waveform analysis was performed. FINDINGS: The patient declined to complete the examination. The liver appears heterogenous in echotexture with a nodular surface contour. Additionally, there is moderate volume intra-abdominal ascites. 1. The patient declined to complete the examination. 2. Cirrhotic morphology of the liver with moderate volume intra-abdominal ascites of the images obtained before the patient terminated the exam. I personally reviewed the images/study and I agree with the findings as stated by Gamal Schulz DO PGY-3. This study was interpreted at [place], [place]. MACRO: None Signed by: Mina España 2024 4:20 PM Dictation workstation: [id number] ECG 12 lead Result Date: 2024 Sinus tachycardia Possible Left atrial enlargement Cannot rule out Anterior infarct , age undetermined Abnormal ECG No previous ECGs available See ED provider note for full interpretation and clinical correlation Confirmed by Rekha Armstrong ([id number]) on 2024 7:08:02 AM US right upper quadrant Result Date: 2024 Interpreted By: Leena Mcgraw and Bartolomei Aguilar Christopher STUDY: US RIGHT UPPER QUADRANT; 2024 12:07 am INDICATION: Signs/Symptoms:new cholestasis, eval for source of obstruction. COMPARISON: MRI liver 12/04/2024. CT abdomen and pelvis 12/02/2024. ACCESSION NUMBER(S): [id number] ORDERING CLINICIAN: VERO MACHADO TECHNIQUE: Multiple images of the right upper quadrant were obtained. FINDINGS: LIVER: The liver measures 21.8 cm and appears diffusely heterogeneous with a nodular contour. There is moderate volume perihepatic ascites. GALLBLADDER: Gallbladder is mildly distended with multiple intraluminal echogenic foci and layering echogenic material consistent with gallstones and biliary sludge respectively. Gallbladder wall thickness measures 0.3 cm. Per the resource specialist Corbett's sign is negative. BILE DUCTS: No evidence of intra or extrahepatic biliary dilatation is identified; the common bile duct is prominent but nondilated measuring 0.6 cm. PANCREAS: The pancreas is poorly visualized due to overlying bowel gas. RIGHT KIDNEY: The right kidney measures 12.2 cm in length. The renal cortical echogenicity and thickness are within normal limit. No hydronephrosis. 1. Cholelithiasis and gallbladder sludge with no sonographic evidence of acute cholecystitis. 2. Hepatomegaly. Diffuse heterogeneity of the liver with a nodular contour. Please correlate with clinical history of cirrhosis and with LFTs. 3. Moderate amount of abdominal ascites. I personally reviewed the images/study and I agree with the findings as stated. MACRO: None Signed by: Leena Mcgraw 2024 3:24 AM Dictation workstation: [id number] Assessment & Plan Jose Parker is a 44 y/o M with a PMH of alcohol use induced liver cirrhosis who was admitted for 1-2 weeks of worsening abdominal pain, distension, jaundice Updates (12/09/24): - Diagnostic and therapeutic thoracentesis with IR - Started prednisone 40 daily for alcoholic hepatitis - Started pantoprazole 40 daily and SSI due to steroid initiation #Acute Decompensated Cirrhosis #Alcohol Hepatitis ::Fibroscan 02/2022 showed IQR 4% kpa 74.3 CAP 329 suggesting fibrosis stage F4 and steatosis grade of S3 ::RUQ US Duplex: Cirrhotic morphology of the liver with portal hypertension including splenomegaly, small perihepatic ascites, slow flow within the poral venous system and lies paraumbilical vein ::Patient states he drinks 3-4 vodka drinks daily ::Diagnostic paracentesis negative for SBP ::Labs (Up trending LFTs) : T bili (21) direct bili (14.4), Alk Phos (359), AST (130) Plan: - MELD (12/09/24): 26, Maddrey 59.2 - Started prednisone 40 daily due to alcoholic hepatitis picture - Continue Lasix 20 mg, spironolactone 50 mg - Continue rifaximin 550 mg BID, lactulose 10 mg TID - Hepatology following, appreciate recs #Abdominal Pain (improving) :: Likely secondary to decompensates cirrhosis :: Paracentesis today #Hyponatremia :: Na 132 (12/08/24) :: CTM Fluids: Replete PRN with caution iso cirrhosis Electrolytes: Keep mg >2, phos >3 and K >4 Nutrition: Regular, 2g Na with 3271-1718 ml fluid restriction when able Access: PIV DVT ppx: hold iso elevated INR GI ppx: NA Bowel care: lactulose Catheter: None Antibiotics: None Oxygen: Room Air Code Status: Full Code (confirmed on admission) NOK: Spouse; Jennifer Jose Luis Parekr Braeunig Arin Gonsalez MD Cosigned by Brianna Singh MD at 12/08/2024 4:03 PM EDT Associated attestation - Brianna Singh MD - 12/08/2024 4:03 PM EDT I evaluated and saw the patient independently and agree with the documented note, assessment/plan per the resident physician, medical student, or JOSE. Plan was discussed with team during rounds -Afebrile/HDS/on RA; feels well overall; stable abd pain/distention; denies f/c/n/v/melena/hematochezia/con fusion -LFTs continue to worsen; MELD 26, Maddreys 59 -Full infectious aprks negative (including prior dx para); abx discontinued -Start prednisone 40mg today for alcoholic hepatitis -Continue lasix/aldactone, rifaximin/lactulose -Therapeutic para today -Understanding of poor prognosis and why he is not transplant eligible -CIWAS improved; CTM 12/08/24 1020 Rapid Rounds Attendance Provider;Nurse;Care Transitions Expected Discharge Disposition Home Today we still await: Clinical stability;Diagnostic workup;Symptomatic control Review at Escalation Rounds No escalation needed OPAL LuisN-service member Coordinator (TCC) [phone] ext [phone] [facility] CONSULT FOLLOW-UP Reason For Consult Alcoholic Hepatitis SUBJECTIVE No acute events overnight. Having slightly worsening abdominal distention today. Says he is up and walking around but getting winded easily. No abdominal pain; tolerating a diet. All cultures remain negative. LFTs stable overall but mildly increased form yesterday (Tbili 17 -> 20). WBC also increased form 10 -> 13 EXAM Last Recorded Vitals Blood pressure 106/66, pulse 97, temperature 36.3 C (97.3 F), resp. rate 16, height 1.722 m (5' 7.8), weight 78.9 kg (174 lb), SpO2 93%. Intake/Output Summary (Last 24 hours) at 12/07/2024 1332 Last data filed at 12/07/2024 0900 Gross per 24 hour Intake 610 ml Output -- Net 610 ml Physical Exam General: Ill appearing. Jaundiced. Confused. HEENT: EOMI. Moist mucosa Respiratory: nonlabored breathing on room air Cardiovascular: RRR, no murmurs/rubs/gallops Abdomen: Soft, distended, bowel sounds present. No masses palpated Extremities: no edema, no asterixis Neuro: alert and oriented, CNII-XII grossly intact, moves all 4 extremities with no focal deficits OBJECTIVE Medications Current Medications[1] Labs Results for orders placed or performed during the hospital encounter of 12/04/24 (from the past 24 hours) CBC and Auto Differential Result Value Ref Range WBC 13.5 (H) 4.4 - 11.3 x10*3/uL nRBC 0.1 (H) 0.0 - 0.0 /100 WBCs RBC 3.34 (L) 4.50 - 5.90 x10*6/uL Hemoglobin 12.8 (L) 13.5 - 17.5 g/dL Hematocrit 36.7 (L) 41.0 - 52.0 % MCV 110 (H) 80 - 100 fL MCH 38.3 (H) 26.0 - 34.0 pg MCHC 34.9 32.0 - 36.0 g/dL RDW 18.0 (H) 11.5 - 14.5 % Platelets 121 (L) 150 - 450 x10*3/uL Neutrophils % 74.4 40.0 - 80.0 % Immature Granulocytes %, Automated 1.2 (H) 0.0 - 0.9 % Lymphocytes % 12.5 13.0 - 44.0 % Monocytes % 10.5 2.0 - 10.0 % Eosinophils % 1.0 0.0 - 6.0 % Basophils % 0.4 0.0 - 2.0 % Neutrophils Absolute 10.01 (H) 1.20 - 7.70 x10*3/uL Immature Granulocytes Absolute, Automated 0.16 0.00 - 0.70 x10*3/uL Lymphocytes Absolute 1.68 1.20 - 4.80 x10*3/uL Monocytes Absolute 1.41 (H) 0.10 - 1.00 x10*3/uL Eosinophils Absolute 0.13 0.00 - 0.70 x10*3/uL Basophils Absolute 0.06 0.00 - 0.10 x10*3/uL Magnesium Result Value Ref Range Magnesium 2.45 (H) 1.60 - 2.40 mg/dL Hepatic Function Panel Result Value Ref Range Albumin 3.4 3.4 - 5.0 g/dL Bilirubin, Total 20.2 (H) 0.0 - 1.2 mg/dL Bilirubin, Direct 13.5 (H) 0.0 - 0.3 mg/dL Alkaline Phosphatase 168 (H) 33 - 120 U/L ALT 54 (H) 10 - 52 U/L AST 128 (H) 9 - 39 U/L Total Protein 6.0 (L) 6.4 - 8.2 g/dL Coagulation Screen Result Value Ref Range Protime 17.1 (H) 9.8 - 12.4 seconds INR 1.5 (H) 0.9 - 1.1 aPTT 29 26 - 36 seconds Phosphorus Result Value Ref Range Phosphorus 1.8 (L) 2.5 - 4.9 mg/dL Basic Metabolic Panel Result Value Ref Range Glucose 89 74 - 99 mg/dL Sodium 132 (L) 136 - 145 mmol/L Potassium 3.5 3.5 - 5.3 mmol/L Chloride 92 (L) 98 - 107 mmol/L Bicarbonate 32 21 - 32 mmol/L Anion Gap 12 10 - 20 mmol/L Urea Nitrogen 9 6 - 23 mg/dL Creatinine 0.76 0.50 - 1.30 mg/dL eGFR >90 >60 mL/min/1.73m*2 Calcium 8.7 8.6 - 10.6 mg/dL Imaging === 12/04/24 === US ABDOMEN LIMITED - Impression - 1. The patient declined to complete the examination. 2. Cirrhotic morphology of the liver with moderate volume intra-abdominal ascites of the images obtained before the patient terminated the exam. GI Procedures ASSESSMENT / PLAN ASSESSMENT/PLAN: Jose Parker is a 44 y.o. male with a past medical history of alcohol use disorder, hepatic steatosis presenting with abdomina distention, pain and jaundice admitted on 12/04/2024 concerned for alcohol withdrawal/alcoholic hepatitis. MELD 3.0: 24 at 12/07/2024 7:21 AM MELD-Na: 25 at 12/07/2024 7:21 AM Calculated from: Serum Creatinine: 0.76 mg/dL (Using min of 1 mg/dL) at 12/07/2024 7:21 AM Serum Sodium: 132 mmol/L at 12/07/2024 7:21 AM Total Bilirubin: 20.2 mg/dL at 12/07/2024 7:21 AM Serum Albumin: 3.4 g/dL at 12/07/2024 7:21 AM INR(ratio): 1.5 at 12/07/2024 7:21 AM Age at listing (hypothetical): 44 years Sex: Male at 12/07/2024 7:21 AM #Alcohol withdrawal #Alcoholic hepatitis Presentation is consistent with alcohol withdrawal with elevated CIWA requiring BDZ. reports the patient never having withdrawal in the past. Patient was first found to have alcoholic hepatitis in 2021 when he was told to stop alcohol but has been continuously drinking 3~4 mixed vodka drinks until recently. Lab is consistent with alcoholic hepatitis (T seth 17.6, AST 133/ALT 53>2, ALP 173). Low Na 129. MDF 58>32. Patient also has AMS likely from alcohol withdrawal but will check CTH to r/o intracranial pathology. Paracentesis on 12/04 with WBC 133 ruling out SBP. No albumin collected to calculate SAAG. Low TP of 2.0. UA neg. Awaiting blood cultures. Will await the infection work up as well as CTH. We could consider steroid for alcoholic hepatitis if all the infectious work negative at 72 hours and lab show no improvement of liver function (T-seth/INR). CT head negative for any acute process. Blood and urine cultures remain negative Plan -please repeat diagnostic/therapeutic paracentesis given leukocytosis. -Continue CIWA protocol -Continue rifaximin/lactulose -Continue thiamin/MVI -Daily MELD lab (CBC, LFT, BMP, INR) -Await [facility] Patient was seen and discussed with Dr. Renteria. Thank you for this interesting consult. Gastroenterology will continue to follow. -During weekday hours of 7am-5pm please do not hesitate to contact me on [employer] Chat or page [phone] if there are any further questions between the weekday hours of 7 AM - 5 PM. -After hours, on weekends, and on holidays, [place] [phone]. Thank you. Marisol Suero MD Gastroenterology Fellow, PGY-4 [1] Current Facility-Administered Medications: diazePAM (Valium) injection 10 mg, 10 mg, intravenous, q2h PRN, Gamal Garcia MD, 10 mg at 12/05/24 1325 folic acid (Folvite) tablet 1 mg, 1 mg, oral, Daily, Azalia Zamora MD, 1 mg at 12/07/24 1033 furosemide (Lasix) tablet 20 mg, 20 mg, oral, Daily, Naomi Chakraborty MD, 20 mg at 12/07/24 1033 lactulose 20 gram/30 mL oral solution 20 g, 20 g, oral, TID, Azalia Zamora MD, 20 g at 12/07/24 1033 multivitamin with minerals 1 tablet, 1 tablet, oral, Daily, Azalia Zamora MD, 1 tablet at 12/07/24 1033 nicotine (Nicoderm CQ) 14 mg/24 hr patch 1 patch, 1 patch, transdermal, q24h, Naomi Chakraborty MD, 1 patch at 12/06/24 1458 oxygen (O2) therapy, 1 Dose, inhalation, Continuous - O2/gases, Giovany Ram MD [Held by provider] piperacillin-tazobactam (Zosyn) 3.375 g in dextrose (iso) IV 50 mL, 3.375 g, intravenous, q6h, Azalia Zamora MD, Stopped at 12/07/24 0216 polyethylene glycol (Glycolax, Miralax) packet 17 g, 17 g, oral, Daily, Azalia Zamora MD potassium phosphates 30 mmol in dextrose 5% 250 mL IV, 30 mmol, intravenous, Once, Gregor Mayfield MD rifAXIMin (Xifaxan) tablet 550 mg, 550 mg, oral, q12h ANTOINE, Azalia Zamora MD, 550 mg at 12/07/24 1033 spironolactone (Aldactone) tablet 50 mg, 50 mg, oral, Daily, Naomi Chakraborty MD, 50 mg at 12/07/24 1033 [START ON 12/08/2024] thiamine (Vitamin B-1) tablet 100 mg, 100 mg, oral, Daily, Azalia Zamora MD thiamine (Vitamin B1) injection 500 mg, 500 mg, intravenous, q8h ANTOINE, Azalia Zamora MD, 500 mg at 12/07/24 0543 Cosigned by Alessandro Renteria MD at 12/07/2024 2:41 PM EDT Associated attestation - Alessandro Renteria MD - 12/07/2024 2:41 PM EDT Attending addendum: I saw and evaluated the patient. I personally obtained the critical portions of the history and physical exam. The case was discussed in detail with the fellow; including, but not limited to the chief complaint, HPI, past history, physical findings, labs and radiological findings. I agree with the fellow's medical decision making as documented in the fellow's note. The patient was counseled on the possible differential diagnoses and testing needed to arrive at a diagnosis or a treatment plan. The patient had no particular issues or complaints overnight. He was able to ambulate with assistance. His head CT was unrevealing. All of his cultures are negative to date. Unfortunately, his bilirubin continues to worsen. If his cultures are negative tomorrow, we would recommend starting him on steroids for his severe alcoholic hepatitis. I would recommend diagnostic and therapeutic paracentesis as his ascites volume is increasing. Alessandro Renteria MD, CRISTINA, FAASLD, FACG Application Dba, Hepatology Senior Attending Physician [facility] accounts receivable assistant Division of Gastroenterology and Liver Disease [facility] [employer] [address] [place] [id number] Jose Parker is a 44 y.o. male on day 2 of admission presenting with Generalized abdominal pain. Subjective There were no acute events overnight. Patient states that abdominal pain is improved. Patient had 7 bowel movements yesterday. Subjectively feels much better today. Denies any nausea, vomiting, diarrhea, fever, chills, cough or chest pain. Objective Last Recorded Vitals BP 106/66 Pulse 97 Temp 36.3 C (97.3 F) Resp 16 Wt 78.9 kg (174 lb) SpO2 93% Intake/Output last 3 Shifts: Intake/Output Summary (Last 24 hours) at 12/07/2024 1124 Last data filed at 12/07/2024 0600 Gross per 24 hour Intake 490 ml Output -- Net 490 ml Admission Weight Weight: 79.1 kg (174 lb 6.4 oz) (12/04/24 1920) Daily Weight 12/05/24 : 78.9 kg (174 lb) Image Results CT head wo IV contrast Narrative: Interpreted By: Ignacio Torres, STUDY: CT HEAD WO IV CONTRAST; 12/06/2024 8:10 am INDICATION: Signs/Symptoms:altered mental status. COMPARISON: None. ACCESSION NUMBER(S): [id number] ORDERING CLINICIAN: BRIANNA SINGH TECHNIQUE: Axial noncontrast head CT FINDINGS: Parenchyma: The paz-white differentiation is intact. There is no mass effect or midline shift. There is no intracranial hemorrhage. CSF Spaces: The ventricles, sulci and basal cisterns are within normal limits. There is no extraaxial fluid collection. Calvarium: The calvarium is unremarkable. Paranasal sinuses and mastoids: Visualized paranasal sinuses and mastoids are clear. Incidental note is made of incomplete arch of the C1 vertebral body posteriorly. Impression: No acute intracranial abnormality was identified within the limits of noncontrast head CT. Signed by: Ignacio Torres 12/06/2024 5:35 PM Dictation workstation: [id number] Physical Exam Constitutional: General: He is not in acute distress. Appearance: Normal appearance. He is not ill-appearing, toxic-appearing or diaphoretic. HENT: Head: Normocephalic. Eyes: General: Scleral icterus present. Extraocular Movements: Extraocular movements intact. Pupils: Pupils are equal, round, and reactive to light. Cardiovascular: Rate and Rhythm: Normal rate. Pulmonary: Effort: Pulmonary effort is normal. Abdominal: General: Abdomen is flat. There is distension. Palpations: Abdomen is soft. There is no mass. Tenderness: There is no abdominal tenderness. There is no guarding or rebound. Hernia: No hernia is present. Musculoskeletal: General: Normal range of motion. Right lower leg: Edema present. Left lower leg: Edema present. Skin: General: Skin is warm. Coloration: Skin is jaundiced. Findings: Bruising and erythema present. Neurological: General: No focal deficit present. Mental Status: He is alert and oriented to person, place, and time. Mental status is at baseline. Relevant Results Results for orders placed or performed during the hospital encounter of 12/04/24 (from the past 24 hours) CBC and Auto Differential Result Value Ref Range WBC 13.5 (H) 4.4 - 11.3 x10*3/uL nRBC 0.1 (H) 0.0 - 0.0 /100 WBCs RBC 3.34 (L) 4.50 - 5.90 x10*6/uL Hemoglobin 12.8 (L) 13.5 - 17.5 g/dL Hematocrit 36.7 (L) 41.0 - 52.0 % MCV 110 (H) 80 - 100 fL MCH 38.3 (H) 26.0 - 34.0 pg MCHC 34.9 32.0 - 36.0 g/dL RDW 18.0 (H) 11.5 - 14.5 % Platelets 121 (L) 150 - 450 x10*3/uL Neutrophils % 74.4 40.0 - 80.0 % Immature Granulocytes %, Automated 1.2 (H) 0.0 - 0.9 % Lymphocytes % 12.5 13.0 - 44.0 % Monocytes % 10.5 2.0 - 10.0 % Eosinophils % 1.0 0.0 - 6.0 % Basophils % 0.4 0.0 - 2.0 % Neutrophils Absolute 10.01 (H) 1.20 - 7.70 x10*3/uL Immature Granulocytes Absolute, Automated 0.16 0.00 - 0.70 x10*3/uL Lymphocytes Absolute 1.68 1.20 - 4.80 x10*3/uL Monocytes Absolute 1.41 (H) 0.10 - 1.00 x10*3/uL Eosinophils Absolute 0.13 0.00 - 0.70 x10*3/uL Basophils Absolute 0.06 0.00 - 0.10 x10*3/uL Magnesium Result Value Ref Range Magnesium 2.45 (H) 1.60 - 2.40 mg/dL Hepatic Function Panel Result Value Ref Range Albumin 3.4 3.4 - 5.0 g/dL Bilirubin, Total 20.2 (H) 0.0 - 1.2 mg/dL Bilirubin, Direct 13.5 (H) 0.0 - 0.3 mg/dL Alkaline Phosphatase 168 (H) 33 - 120 U/L ALT 54 (H) 10 - 52 U/L AST 128 (H) 9 - 39 U/L Total Protein 6.0 (L) 6.4 - 8.2 g/dL Coagulation Screen Result Value Ref Range Protime 17.1 (H) 9.8 - 12.4 seconds INR 1.5 (H) 0.9 - 1.1 aPTT 29 26 - 36 seconds Phosphorus Result Value Ref Range Phosphorus 1.8 (L) 2.5 - 4.9 mg/dL Basic Metabolic Panel Result Value Ref Range Glucose 89 74 - 99 mg/dL Sodium 132 (L) 136 - 145 mmol/L Potassium 3.5 3.5 - 5.3 mmol/L Chloride 92 (L) 98 - 107 mmol/L Bicarbonate 32 21 - 32 mmol/L Anion Gap 12 10 - 20 mmol/L Urea Nitrogen 9 6 - 23 mg/dL Creatinine 0.76 0.50 - 1.30 mg/dL eGFR >90 >60 mL/min/1.73m*2 Calcium 8.7 8.6 - 10.6 mg/dL Vascular US abdomen/pelvis duplex complete Result Value Ref Range BSA 1.94 m2 Assessment & Plan Generalized abdominal pain Jose Parker is a 44 y.o. male with h/o alcohol use and hepatic steatosis vs cirrhosis presenting with x1-2 week of worsening abdominal pain, distension, and jaundice admitted for decompensated cirrhosis likely d/t alcoholic hepatitis. Hyponatremia improving with IVFs (likely pre-renal). Actively in alcohol withdrawal on CIWA (17 last score). Currently on zosyn due to coverage for possible ascending cholangitis (AMS, jaundice) given elevated bilirubin [id number] to alcoholic hepatitis. 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 without clinically significant portal htn vs advanced fibrosis at that time, subsequently lost to follow up ::Fibroscan 02/2022 showed IQR 4% kpa 74.3 CAP 329 suggesting fibrosis stage F4 and steatosis grade of S3 ::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 Bili 10; No biliary dilatation on RUQ US ::Viral Hepatitis Panel neg., AFP wnl Plan: -FU daily MELD labs -FU CT and MR interpretation from [facility] yesterday -liver ultrasound w/ doppler pending -liver stamp pending -defer steroids to hepatology -c/w zosyn iso critical illness with leukocytosis to 17 despite no SBP on para -c/w lactulose, titrate to 3-5 bm daily -c/w rifaximin 550 mg bid -c/w lasix and aldactone -consider screening EGD given decompensated cirrhosis -hepatology on board #Toxic Encephalopathy likely d/t alcohol withdrawal #Hepatic Encephalopathy ::ddx: metabolic - HE, AGMA (ketones), hypoNa; infectious - cholangitis, encephalitis/autoimmune encephalitis; structural - seizures; Toxin - alcohol withdrawal ::last drink Friday 12/01 ::CTH negative Plan: -[facility] protocol initiated -ctm for seizures and escalate level of care if alcohol withdrawal symptoms are uncontrolled -consider med tox consult if needed -FU PETH, TSH #alcohol withdrawal-resolved #alcohol use ::tachycardic to 130s on presentation ::anxious and tremulous ::last drink was Friday 12/01 per ::alcohol <10 Plan: -CTH w/o contrast to r/o intracranial explanation for AMS -PETH pending -ciwa protocol initiated; diazepam IM ordered -nutrition consult -thiamine 500 mg IV q8h x3 days followed by 100 mg PO qd -folate 1 mg qd #c/f sepsis (2/4 SIRS - WBC and tachycardia) #c/f cholangitis (jaundice, AMS) :: elevated t and direct bili: 1810 :: RUQ US did not show any biliary duct dilatation :: source likely biliary tree Plan: - DC zosyn empirically - FU Bcx - ctm for signs of ascending cholangitis (fever, AMS, jaundice, RUQ pain, hypotension #Hyponatremia - improving :: Na of 126 on admission improved w 1L LR (129) :: Serum Osm 273 (low); Urine Osm 705 (high) :: Likely pre-renal v hypervolemic (not overloaded on PE) Plan: - FU urine lytes - Strict I/Os - 1L LR bolus today #respiratory alkalosis #AGMA - resolved :: AG of 21 w/ ketonuria :: lactate normal :: VBG pH -> resp alkalosis Plan: -ctm -VBG if AG develops #gallstones #biliary colic ::RUQ ultrasound showing cholelithiasis and gallbladder sludge with no sonographic evidence of acute cholecystitis ::abdominal pain could have component of biliary colic, although it has no association to meals Plan: -consider MRI liver vs MRCP -FU w/ outpatient for possible cholecystectomy Fluids: Replete PRN with caution iso cirrhosis Electrolytes: Keep mg >2, phos >3 and K >4 Nutrition: Regular, 2g Na with 2275-1115 ml fluid restriction when able Access: PIV DVT ppx: hold iso elevated INR GI ppx: NA Bowel care: lactulose Catheter: None Antibiotics: None Oxygen: Room Air Code Status: Full Code (confirmed on admission) NOK: Spouse; Jennifer Jose Luis Casiano Gregor Mayfield MD Internal Medicine, PGY-1 Cosigned by Brianna Singh MD at 12/07/2024 10:45 PM EDT Associated attestation - Brianna Singh MD - 12/07/2024 10:45 PM EDT I evaluated and saw the patient independently and agree with the documented note, assessment/plan per the resident physician, medical student, or JOSE. Plan was discussed with team during rounds -See prior progress note -Guarded prognosis. MELD 36, Maddreys 48 -Start steroids today for alcoholic hepatitis -Pending final infectious parks, dc abx tomorrow Images from the original note were not included. Jose Parker is a 44 y.o. male on day 1 of admission presenting with Generalized abdominal pain. Subjective Mentation is better this am. More calm. CIWA active Objective Last Recorded Vitals BP 136/89 Pulse (!) 117 Temp 36.9 C (98.4 F) Resp 19 Wt 78.9 kg (174 lb) SpO2 92% Intake/Output last 3 Shifts: Intake/Output Summary (Last 24 hours) at 2024 1057 Last data filed at 2024 0900 Gross per 24 hour Intake 976.67 ml Output -- Net 976.67 ml Admission Weight Weight: 79.1 kg (174 lb 6.4 oz) (12/04/24 1920) Daily Weight 12/05/24 : 78.9 kg (174 lb) Image Results ECG 12 lead Sinus tachycardia Possible Left atrial enlargement Cannot rule out Anterior infarct , age undetermined Abnormal ECG No previous ECGs available See ED provider note for full interpretation and clinical correlation Confirmed by Rekha Armstrong ([id number]) on 2024 7:08:02 AM US right upper quadrant Narrative: Interpreted By: Leena Mcgraw, and Ziggy Charles STUDY: US RIGHT UPPER QUADRANT; 2024 12:07 am INDICATION: Signs/Symptoms:new cholestasis, eval for source of obstruction. COMPARISON: MRI liver 12/04/2024. CT abdomen and pelvis 12/02/2024. ACCESSION NUMBER(S): [id number] ORDERING CLINICIAN: VERO MACHADO TECHNIQUE: Multiple images of the right upper quadrant were obtained. FINDINGS: LIVER: The liver measures 21.8 cm and appears diffusely heterogeneous with a nodular contour. There is moderate volume perihepatic ascites. GALLBLADDER: Gallbladder is mildly distended with multiple intraluminal echogenic foci and layering echogenic material consistent with gallstones and biliary sludge respectively. Gallbladder wall thickness measures 0.3 cm. Per the resource specialist Corbett's sign is negative. BILE DUCTS: No evidence of intra or extrahepatic biliary dilatation is identified; the common bile duct is prominent but nondilated measuring 0.6 cm. PANCREAS: The pancreas is poorly visualized due to overlying bowel gas. RIGHT KIDNEY: The right kidney measures 12.2 cm in length. The renal cortical echogenicity and thickness are within normal limit. No hydronephrosis. Impression: 1. Cholelithiasis and gallbladder sludge with no sonographic evidence of acute cholecystitis. 2. Hepatomegaly. Diffuse heterogeneity of the liver with a nodular contour. Please correlate with clinical history of cirrhosis and with LFTs. 3. Moderate amount of abdominal ascites. I personally reviewed the images/study and I agree with the findings as stated. MACRO: None Signed by: Leena Mcgraw 2024 3:24 AM Dictation workstation: [id number] Physical Exam HENT: Head: Normocephalic. Eyes: General: Scleral icterus present. Extraocular Movements: Extraocular movements intact. Pupils: Pupils are equal, round, and reactive to light. Cardiovascular: Rate and Rhythm: Regular Pulmonary: Effort: Pulmonary effort is normal. Abdominal: General: There is distension. Palpations: There is no mass. Tenderness: There is abdominal tenderness. There is no guarding or rebound. Hernia: No hernia is present. Musculoskeletal: General: Normal range of motion. Cervical back: Normal range of motion. Right lower leg: No edema. Left lower leg: No edema. Skin: General: Skin is warm. Coloration: Skin is jaundiced. Findings: Bruising and erythema present. Neurological: Mental Status: He is Oriented Results for orders placed or performed during the hospital encounter of 12/04/24 (from the past 24 hours) Blood Gas Lactic Acid, Venous Result Value Ref Range POCT Lactate, Venous 1.2 0.4 - 2.0 mmol/L CBC and Auto Differential Result Value Ref Range WBC 10.3 4.4 - 11.3 x10*3/uL nRBC 0.0 0.0 - 0.0 /100 WBCs RBC 2.99 (L) 4.50 - 5.90 x10*6/uL Hemoglobin 11.4 (L) 13.5 - 17.5 g/dL Hematocrit 33.2 (L) 41.0 - 52.0 % MCV 111 (H) 80 - 100 fL MCH 38.1 (H) 26.0 - 34.0 pg MCHC 34.3 32.0 - 36.0 g/dL RDW 17.3 (H) 11.5 - 14.5 % Platelets 81 (L) 150 - 450 x10*3/uL Neutrophils % 78.7 40.0 - 80.0 % Immature Granulocytes %, Automated 0.6 0.0 - 0.9 % Lymphocytes % 10.6 13.0 - 44.0 % Monocytes % 8.7 2.0 - 10.0 % Eosinophils % 1.1 0.0 - 6.0 % Basophils % 0.3 0.0 - 2.0 % Neutrophils Absolute 8.08 (H) 1.20 - 7.70 x10*3/uL Immature Granulocytes Absolute, Automated 0.06 0.00 - 0.70 x10*3/uL Lymphocytes Absolute 1.09 (L) 1.20 - 4.80 x10*3/uL Monocytes Absolute 0.89 0.10 - 1.00 x10*3/uL Eosinophils Absolute 0.11 0.00 - 0.70 x10*3/uL Basophils Absolute 0.03 0.00 - 0.10 x10*3/uL Magnesium Result Value Ref Range Magnesium 2.34 1.60 - 2.40 mg/dL Hepatic Function Panel Result Value Ref Range Albumin 3.1 (L) 3.4 - 5.0 g/dL Bilirubin, Total 17.1 (H) 0.0 - 1.2 mg/dL Bilirubin, Direct 9.6 (H) 0.0 - 0.3 mg/dL Alkaline Phosphatase 154 (H) 33 - 120 U/L ALT 46 10 - 52 U/L AST 116 (H) 9 - 39 U/L Total Protein 5.1 (L) 6.4 - 8.2 g/dL Coagulation Screen Result Value Ref Range Protime 17.0 (H) 9.8 - 12.4 seconds INR 1.5 (H) 0.9 - 1.1 aPTT 28 26 - 36 seconds Phosphorus Result Value Ref Range Phosphorus 2.2 (L) 2.5 - 4.9 mg/dL Basic Metabolic Panel Result Value Ref Range Glucose 99 74 - 99 mg/dL Sodium 131 (L) 136 - 145 mmol/L Potassium 3.1 (L) 3.5 - 5.3 mmol/L Chloride 91 (L) 98 - 107 mmol/L Bicarbonate 31 21 - 32 mmol/L Anion Gap 12 10 - 20 mmol/L Urea Nitrogen 11 6 - 23 mg/dL Creatinine 0.63 0.50 - 1.30 mg/dL eGFR >90 >60 mL/min/1.73m*2 Calcium 8.1 (L) 8.6 - 10.6 mg/dL Assessment & Plan Generalized abdominal pain Jose Parker is a 44 y.o. male with h/o alcohol use and hepatic steatosis vs cirrhosis presenting with x1-2 week of worsening abdominal pain, distension, and jaundice admitted for decompensated cirrhosis likely d/t alcoholic hepatitis. Hyponatremia improving with IVFs (likely pre-renal). Actively in alcohol withdrawal on CIWA (17 last score). Currently on zosyn due to coverage for possible ascending cholangitis (AMS, jaundice) given elevated bilirubin [id number] to alcoholic hepatitis. Updates 12/06: - For hepatic encephalopathy Started on lactulose with 3 daily BM titration\ improving mental status - CIWA active - Pending CT head report - Adding nicotine patch - PET pending, hepatology onboard--no plans for steroids now, waiting final infectious parks - Starting low dose lasix and spironolactone #Acute Decompensated Cirrhosis 2/2 alcoholic hepatitisMELD 3.0 25, MELD-Na 29 #Hepatic Encephalopathy #alcoholic hepatitis, maddrey's discriminant function 48.7 #c/f cholangitis ::pt with known liver disease since at least 12/2021 likely compensated cirrhosis without clinically significant portal htn vs advanced fibrosis at that time, subsequently lost to follow up ::Fibroscan 02/2022 showed IQR 4% kpa 74.3 CAP 329 suggesting fibrosis stage F4 and steatosis grade of S3 ::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 Bili 10; No biliary dilatation on RUQ US ::Viral Hepatitis Panel neg., AFP wnl Plan: -FU daily MELD labs -FU CT and MR interpretation from [facility] yesterday -liver ultrasound w/ doppler pending -liver stamp pending -defer steroids to hepatology -c/w zosyn iso critical illness with leukocytosis to 17 despite no SBP on para -c/w lactulose, titrate to 3-5 bm daily -c/w rifaximin 550 mg bid -consider screening EGD given decompensated cirrhosis -hepatology on board #Toxic Encephalopathy likely d/t alcohol withdrawal #Hepatic Encephalopathy ::ddx: metabolic - HE, AGMA (ketones); infectious - cholangitis, encephalitis/autoimmune encephalitis; structural - seizures; Toxin - alcohol withdrawal ::last drink Friday 12/01 Plan: -CTH w/o contrast to r/o [place] Encephalopathy -CIWA protocol initiated -ctm for seizures and escalate level of care if alcohol withdrawal symptoms are uncontrolled -consider med tox consult if needed -FU PETH, TSH - Starting lasix 20 and spironolactone 50 #alcohol withdrawal #alcohol use ::tachycardic to 130s on presentation ::anxious and tremulous ::last drink was Friday 12/01 per ::alcohol <10 Plan: -CTH w/o contrast to r/o intracranial explanation for AMS -PETH pending -ciwa protocol initiated; diazepam IM ordered -nutrition consult -thiamine 500 mg IV q8h x3 days followed by 100 mg PO qd -folate 1 mg qd #c/f sepsis (2/4 SIRS - WBC and tachycardia) #c/f cholangitis (jaundice, AMS) :: elevated t and direct bili: 31/01 :: RUQ US did not show any biliary duct dilatation :: source likely biliary tree Plan: - c/w zosyn empirically - FU Bcx - ctm for signs of ascending cholangitis (fever, AMS, jaundice, RUQ pain, hypotension #Hyponatremia :: Na of 126 on admission improved w 1L LR (129) :: Serum Osm 273 (low); Urine Osm 705 (high) :: Likely pre-renal v hypervolemic (not overloaded on PE) Plan: - FU urine lytes - Strict I/Os - 1L LR bolus today #respiratory alkalosis #AGMA - resolved :: AG of 21 w/ ketonuria :: lactate normal :: VBG pH -> resp alkalosis Plan: -ctm -VBG if AG develops #gallstones #biliary colic ::RUQ ultrasound showing cholelithiasis and gallbladder sludge with no sonographic evidence of acute cholecystitis ::abdominal pain could have component of biliary colic, although it has no association to meals Plan: -consider MRI liver vs MRCP -FU w/ outpatient for possible cholecystectomy Fluids: Replete PRN with caution iso cirrhosis Electrolytes: Keep mg >2, phos >3 and K >4 Nutrition: Regular, 2g Na with 5289-3120 ml fluid restriction when able Access: PIV DVT ppx: hold iso elevated INR GI ppx: NA Bowel care: lactulose Catheter: None Antibiotics: Zosyn Oxygen: Room Air Code Status: Full Code (confirmed on admission) NOK: Spouse; Jennifer A Frantz Casiano Cosigned by Brianna Singh MD at 12/06/2024 3:41 PM EDT Associated attestation - Brianna Singh MD - 12/06/2024 3:41 PM EDT I evaluated and saw the patient independently and agree with the documented note, assessment/plan per the resident physician, medical student, or JOSE. Plan was discussed with team during rounds -Mentating better today, AAO x 4; stable abd pain, n/v -Pending MRI liver overread from OSH -Full liver stamp pending -Start lasix/aldactone -Full infectious parks NGTD; favor stopping abx tomorrow after 48 hrs; low suspicion of cholangitis; dx para neg for SBP -Appreciate hepatology recs on steroids Hepatology Consult Service Progress Note Department of Gastroenterology & Hepatology [facility] December 06, 2024 Patient: Jose Parker Medical Record: [id number] Reason for Initial Consult: Alcoholic Hepatitis Interval History: - No acute events overnight - Urinalysis is negative for bacteria - Urine and bacterial cultures are negative at 24 hours - Mild improvement in LFTs: AST: 185 > 133 > 116; ALT 56 > 53 > 46; tBili 9.8 > 10 > 9.6; AP 196 > 173 > 154; INR 1.7 > 1.7 > 1.5 Physical Exam: Vitals: 12/05/24 2336 12/06/24 0329 12/06/24 0557 12/06/24 0754 BP: 108/74 105/70 109/67 112/72 BP Location: Right arm Patient Position: Pulse: 100 94 93 97 Resp: 16 Temp: 36.4 C (97.5 F) 36.8 C (98.2 F) 37.1 C (98.8 F) 37 C (98.6 F) TempSrc: Temporal SpO2: 94% 95% 92% 94% Weight: Height: Intake/Output Summary (Last 24 hours) at 12/06/2024 1053 Last data filed at 2024 1802 Gross per 24 hour Intake 1552.91 ml Output -- Net 1552.91 ml General: Ill appearing. Jaundiced. Confused. HEENT: EOMI. Moist mucosa Respiratory: nonlabored breathing on room air Cardiovascular: RRR, no murmurs/rubs/gallops Abdomen: Soft, distended, bowel sounds present. No masses palpated Extremities: no edema, no asterixis Neuro: alert and oriented, CNII-XII grossly intact, moves all 4 extremities with no focal deficits Labs: CBC Results from last 7 days Lab Units 12/06/24 0732 12/05/24 0740 08/21/25 1939 HEMOGLOBIN g/dL 11.4* 12.0* 12.1* HEMATOCRIT % 33.2* 34.2* 32.6* WBC AUTO x10*3/uL 10.3 11.2 17.7* PLATELETS AUTO x10*3/uL 81* 83* 94* BMP Results from last 7 days Lab Units 12/06/24 0712/05/24 0740 12/04/24222012/04/241938 SODIUM mmol/L 131* 129* -- 126* POTASSIUM mmol/L 3.1* 3.1* -- 5.5* CHLORIDE mmol/L 91* 88* -- 88* CO2 mmol/L 31 29 -- 23 BUN mg/dL 11 13 -- 13 CREATININE mg/dL 0.63 0.71 -- 0.77 MAGNESIUM mg/dL 2.34 1.85 1.66 -- PHOSPHORUS mg/dL 2.2* 2.6 -- -- ANION GAP mmol/L 12 15 -- 21* GLUCOSE mg/dL 99 80 -- 84 CALCIUM mg/dL 8.1* 8.7 -- 8.5* LFTS Results from last 7 days Lab Units 12/06/24 0712/05/24 0740 12/04/24222012/04/241938 ALT U/L 46 53* -- 56* AST U/L 116* 133* -- 185* ALK PHOS U/L 154* 173* -- 196* BILIRUBIN TOTAL mg/dL 17.1* 17.6* -- 17.9* BILIRUBIN DIRECT mg/dL 9.6* 10.0* 9.8* -- COAGS Results from last 7 days Lab Units 12/06/2473112/05/2473912/04/242220 INR 1.5* 1.7* 1.7* Imaging: === 12/04/24 === US ABDOMEN LIMITED - Impression - 1. The patient declined to complete the examination. 2. Cirrhotic morphology of the liver with moderate volume intra-abdominal ascites of the images obtained before the patient terminated the exam. I personally reviewed the images/study and I agree with the findings as stated by Gamal Schulz DO PGY-3. This study was interpreted at [place], [place]. MACRO: None Signed by: Mina España 2024 4:20 PM Dictation workstation: [id number] GI procedures Assessment and Plan: Jose Parker is a 44 y.o. male with a past medical history of alcohol use disorder, hepatic steatosis presenting with abdomina distention, pain and jaundice admitted on 12/04/2024 concerned for alcohol withdrawal/alcoholic hepatitis. MELD 3.0: 24 at 12/06/2024 7:32 AM MELD-Na: 26 at 12/06/2024 7:32 AM Calculated from: Serum Creatinine: 0.63 mg/dL (Using min of 1 mg/dL) at 12/06/2024 7:32 AM Serum Sodium: 131 mmol/L at 12/06/2024 7:32 AM Total Bilirubin: 17.1 mg/dL at 12/06/2024 7:32 AM Serum Albumin: 3.1 g/dL at 12/06/2024 7:32 AM INR(ratio): 1.5 at 12/06/2024 7:32 AM Age at listing (hypothetical): 44 years Sex: Male at 12/06/2024 7:32 AM #Alcohol withdrawal #Alcoholic hepatitis Presentation is consistent with alcohol withdrawal with elevated CIWA requiring BDZ. reports the patient never having withdrawal in the past. Patient was first found to have alcoholic hepatitis in 2021 when he was told to stop alcohol but has been continuously drinking 3~4 mixed vodka drinks until recently. Lab is consistent with alcoholic hepatitis (T seth 17.6, AST 133/ALT 53>2, ALP 173). Low Na 129. MDF 58>32. Patient also has AMS likely from alcohol withdrawal but will check CTH to r/o intracranial pathology. Paracentesis on 12/04 with WBC 133 ruling out SBP. No albumin collected to calculate SAAG. Low TP of 2.0. UA neg. Awaiting blood cultures. Will await the infection work up as well as CTH. We could consider steroid for alcoholic hepatitis if all the infectious work negative at 72 hours and lab show no improvement of liver function (T-seth/INR). Plan -Follow up CT head -Await cultures -Continue CIWA protocol -Continue rifaximin/lactulose -Continue thiamin/MVI -Daily MELD lab (CBC, LFT, BMP, INR) -Await PETH Patient seen and discussed with attending, Dr. Alessandro Renteria. Farzad Barbour MD, PhD Gastroenterology Fellow, PGY-7 [facility] Division of Gastroenterology and Liver Disease Thank you for the consultation. Gastroenterology will continue to the follow the patient. Please do not hesitate to contact me on DocHalo or page [phone] if there are any further questions between the weekday hours of 7 AM - 5 PM. If there is an urgent concern during the weekend, after-hours, or holidays; then [place] [phone]. Thank you. SIGNATURE: Farzad Barbour MD PATIENT NAME: Jose Parker DATE: December 06, 2024 Cosigned by Alessandro Renteria MD at 12/06/2024 12:45 PM EDT Associated attestation - Alessandro Renteria MD - 12/06/2024 12:45 PM EDT Attending addendum: I saw and evaluated the patient. I personally obtained the critical portions of the history and physical exam. The case was discussed in detail with the fellow; including, but not limited to the chief complaint, HPI, past history, physical findings, labs and radiological findings. I agree with the fellow's medical decision making as documented in the fellow's note. The patient was counseled on the possible differential diagnoses and testing needed to arrive at a diagnosis or a treatment plan. The patient is much calmer this morning and remains on his CIWA protocol. He did undergo the head CT but the results are not yet back. Doppler ultrasound showed cirrhosis, fatty liver and moderate ascites. His blood cultures are negative at 24 hours. His ascites did not show evidence of SBP. His UA was negative. If his blood cultures come back negative at 72 hours and his LFTs have not improved, we would likely consider steroids for his severe alcoholic hepatitis. We did speak with him and his at bedside about the poor prognosis associated with severe alcoholic hepatitis. They are well aware of this. He is aware that he will need to be abstinent from alcohol lifelong and should attend a formal IOP program. He can remain on diuretics and a low-sodium diet for the ascites. Alessandro Renteria MD, CRISTNIA, FAASLD, [facility] [employer] D[facility], Hepatology Senior Attending Physician [facility] [place] [facility] accounts receivable assistant Division of Gastroenterology and Liver Disease [facility] [address] [place] [phone] Pharmacy Medication History Review Jose Parker is a 44 y.o. male admitted for Generalized abdominal pain. Pharmacy reviewed the patient's [id number] medications and allergies for accuracy. Medications ADDED: All medications on ELECTRICAL ASSISTANT list Medications CHANGED: None Medications REMOVED: None The list below reflects the updated ELECTRICAL ASSISTANT list. Prior to Admission Medications Prescriptions Last Dose Informant famotidine (Pepcid) 20 mg tablet Spouse/Significant Other Sig: Take 1 tablet (20 mg) by mouth once daily as needed for heartburn or indigestion. ondansetron (Zofran) 4 mg tablet Spouse/Significant Other Sig: Take 1 tablet (4 mg) by mouth every 8 hours if needed for nausea or vomiting. polymyxin B sulf-trimethoprim (Polytrim) ophthalmic solution Spouse/Significant Other Sig: Administer 1 drop into both eyes every 4 hours. For 7 days simethicone (Mylicon) 80 mg chewable tablet Spouse/Significant Other Sig: Chew and swallow 1 tablet (80 mg) every 6 hours if needed for flatulence. Facility-Administered Medications: None The list below reflects the updated allergy list. Please review each documented allergy for additional clarification and justification. Allergies Reviewed by Serenity Martinez RN on 12/04/2024 No Known Allergies Patient accepts M2B at discharge. Sources: [facility] Pharmacy dispense history Spouse patient confused. Reviewed home meds with in the room Chart Review Care Everywhere Additional Comments: None Robson Lyon PharmD Transitions of Care Pharmacist 12/05/24 Secure Chat preferred If no response call [phone] or [facility] Jose Parker is a 44 y.o. male on day 0 of admission presenting with Generalized abdominal pain. Subjective There were no acute events overnight. He was very confused this morning without coherent train of thought or logic. Evidence of active visual hallucinations because he kept referring/pointing to people not present in the room. Was unable to state the date but knew it was his birthday. was present bedside and stated that his confusion started in the ED. She noticed one bowel movement with the lactulose. According to her, she believes his last drink was on Sunday. Patient endorses pressure-like pain in the abdomen due to distended abdomen. denies any episodes of hematemesis. Objective Last Recorded Vitals BP 136/89 Pulse (!) 117 Temp 36.9 C (98.4 F) Resp 19 Wt 78.9 kg (174 lb) SpO2 92% Intake/Output last 3 Shifts: Intake/Output Summary (Last 24 hours) at 2024 1057 Last data filed at 2024 0900 Gross per 24 hour Intake 976.67 ml Output -- Net 976.67 ml Admission Weight Weight: 79.1 kg (174 lb 6.4 oz) (12/04/24 1920) Daily Weight 12/05/24 : 78.9 kg (174 lb) Image Results ECG 12 lead Sinus tachycardia Possible Left atrial enlargement Cannot rule out Anterior infarct , age undetermined Abnormal ECG No previous ECGs available See ED provider note for full interpretation and clinical correlation Confirmed by Rekha Armstrong ([id number]) on 2024 7:08:02 AM US right upper quadrant Narrative: Interpreted By: Leena Mcgraw, and Ziggy Charles STUDY: US RIGHT UPPER QUADRANT; 2024 12:07 am INDICATION: Signs/Symptoms:new cholestasis, eval for source of obstruction. COMPARISON: MRI liver 12/04/2024. CT abdomen and pelvis 12/02/2024. ACCESSION NUMBER(S): [id number] ORDERING CLINICIAN: VERO MACHADO TECHNIQUE: Multiple images of the right upper quadrant were obtained. FINDINGS: LIVER: The liver measures 21.8 cm and appears diffusely heterogeneous with a nodular contour. There is moderate volume perihepatic ascites. GALLBLADDER: Gallbladder is mildly distended with multiple intraluminal echogenic foci and layering echogenic material consistent with gallstones and biliary sludge respectively. Gallbladder wall thickness measures 0.3 cm. Per the resource specialist Corbett's sign is negative. BILE DUCTS: No evidence of intra or extrahepatic biliary dilatation is identified; the common bile duct is prominent but nondilated measuring 0.6 cm. PANCREAS: The pancreas is poorly visualized due to overlying bowel gas. RIGHT KIDNEY: The right kidney measures 12.2 cm in length. The renal cortical echogenicity and thickness are within normal limit. No hydronephrosis. Impression: 1. Cholelithiasis and gallbladder sludge with no sonographic evidence of acute cholecystitis. 2. Hepatomegaly. Diffuse heterogeneity of the liver with a nodular contour. Please correlate with clinical history of cirrhosis and with LFTs. 3. Moderate amount of abdominal ascites. I personally reviewed the images/study and I agree with the findings as stated. MACRO: None Signed by: Leena Mcgraw 2024 3:24 AM Dictation workstation: [id number] Physical Exam HENT: Head: Normocephalic. Eyes: General: Scleral icterus present. Extraocular Movements: Extraocular movements intact. Pupils: Pupils are equal, round, and reactive to light. Cardiovascular: Rate and Rhythm: Tachycardia present. Pulmonary: Effort: Pulmonary effort is normal. Abdominal: General: There is distension. Palpations: There is no mass. Tenderness: There is abdominal tenderness. There is no guarding or rebound. Hernia: No hernia is present. Musculoskeletal: General: Normal range of motion. Cervical back: Normal range of motion. Right lower leg: No edema. Left lower leg: No edema. Skin: General: Skin is warm. Coloration: Skin is jaundiced. Findings: Bruising and erythema present. Neurological: Mental Status: He is disoriented. Relevant Results Results for orders placed or performed during the hospital encounter of 12/04/24 (from the past 24 hours) ECG 12 lead Result Value Ref Range Ventricular Rate 124 BPM Atrial Rate 124 BPM NE Interval 156 ms QRS Duration 74 ms QT Interval 334 ms QTC Calculation(Bazett) 479 ms P [place] 35 degrees R [place] -11 degrees T [place] 49 degrees QRS Count 21 beats Q Onset 218 ms P Onset 140 ms P Offset 194 ms T Offset 385 ms QTC Frederic[place] 425 ms CBC and Auto Differential Result Value Ref Range WBC 17.7 (H) 4.4 - 11.3 x10*3/uL nRBC 0.2 (H) 0.0 - 0.0 /100 WBCs RBC 3.19 (L) 4.50 - 5.90 x10*6/uL Hemoglobin 12.1 (L) 13.5 - 17.5 g/dL Hematocrit 32.6 (L) 41.0 - 52.0 % MCV 102 (H) 80 - 100 fL MCH 37.9 (H) 26.0 - 34.0 pg MCHC 37.1 (H) 32.0 - 36.0 g/dL RDW 15.5 (H) 11.5 - 14.5 % Platelets 94 (L) 150 - 450 x10*3/uL Neutrophils % 86.0 40.0 - 80.0 % Immature Granulocytes %, Automated 1.4 (H) 0.0 - 0.9 % Lymphocytes % 6.3 13.0 - 44.0 % Monocytes % 6.0 2.0 - 10.0 % Eosinophils % 0.1 0.0 - 6.0 % Basophils % 0.2 0.0 - 2.0 % Neutrophils Absolute 15.27 (H) 1.20 - 7.70 x10*3/uL Immature Granulocytes Absolute, Automated 0.24 0.00 - 0.70 x10*3/uL Lymphocytes Absolute 1.11 (L) 1.20 - 4.80 x10*3/uL Monocytes Absolute 1.07 (H) 0.10 - 1.00 x10*3/uL Eosinophils Absolute 0.01 0.00 - 0.70 x10*3/uL Basophils Absolute 0.03 0.00 - 0.10 x10*3/uL Comprehensive metabolic panel Result Value Ref Range Glucose 84 74 - 99 mg/dL Sodium 126 (L) 136 - 145 mmol/L Potassium 5.5 (H) 3.5 - 5.3 mmol/L Chloride 88 (L) 98 - 107 mmol/L Bicarbonate 23 21 - 32 mmol/L Anion Gap 21 (H) 10 - 20 mmol/L Urea Nitrogen 13 6 - 23 mg/dL Creatinine 0.77 0.50 - 1.30 mg/dL eGFR >90 >60 mL/min/1.73m*2 Calcium 8.5 (L) 8.6 - 10.6 mg/dL Albumin 3.7 3.4 - 5.0 g/dL Alkaline Phosphatase 196 (H) 33 - 120 U/L Total Protein 6.5 6.4 - 8.2 g/dL AST 185 (H) 9 - 39 U/L Bilirubin, Total 17.9 (H) 0.0 - 1.2 mg/dL ALT 56 (H) 10 - 52 U/L Lipase Result Value Ref Range Lipase 70 9 - 82 U/L Ammonia Result Value Ref Range Ammonia 64 (H) 16 - 53 umol/L Blood Gas Venous Full Panel Unsolicited Result Value Ref Range POCT pH, Venous 7.50 (H) 7.33 - 7.43 pH POCT pCO2, Venous 37 (L) 41 - 51 mm Hg POCT pO2, Venous 41 35 - 45 mm Hg POCT SO2, Venous 61 45 - 75 % POCT Oxy Hemoglobin, Venous 58.8 45.0 - 75.0 % POCT Hematocrit Calculated, Venous 45.0 41.0 - 52.0 % POCT Sodium, Venous 125 (L) 136 - 145 mmol/L POCT Potassium, Venous 3.6 3.5 - 5.3 mmol/L POCT Chloride, Venous 90 (L) 98 - 107 mmol/L POCT Ionized Calicum, Venous 1.05 (L) 1.10 - 1.33 mmol/L POCT Glucose, Venous 90 74 - 99 mg/dL POCT Lactate, Venous 1.9 0.4 - 2.0 mmol/L POCT Base Excess, Venous 5.5 (H) -2.0 - 3.0 mmol/L POCT HCO3 Calculated, Venous 28.9 (H) 22.0 - 26.0 mmol/L POCT Hemoglobin, Venous 15.1 13.5 - 17.5 g/dL POCT Anion Gap, Venous 10.0 10.0 - 25.0 mmol/L Patient Temperature 37.0 degrees Celsius Protime-INR Result Value Ref Range Protime 18.7 (H) 9.8 - 12.4 seconds INR 1.7 (H) 0.9 - 1.1 aPTT Result Value Ref Range aPTT 27 26 - 36 seconds Blood Culture Specimen: Peripheral Venipuncture; Blood culture Result Value Ref Range Blood Culture Loaded on Instrument - Culture in progress Blood Culture Specimen: Peripheral Venipuncture; Blood culture Result Value Ref Range Blood Culture Loaded on Instrument - Culture in progress Magnesium Result Value Ref Range Magnesium 1.66 1.60 - 2.40 mg/dL Acute Toxicology Panel, Blood Result Value Ref Range Acetaminophen <10.0 10.0 - 30.0 ug/mL Salicylate <3 4 - 20 mg/dL Alcohol <10 <=10 mg/dL Hepatitis panel, acute Result Value Ref Range Hepatitis B Surface AG Nonreactive Nonreactive Hepatitis A AB- IgM Nonreactive Nonreactive Hepatitis B Core AB; IgM Nonreactive Nonreactive Hepatitis C AB Nonreactive Nonreactive Osmolality Result Value Ref Range Osmolality, Serum 273 (L) 280 - 300 mOsm/kg Bilirubin, Direct Result Value Ref Range Bilirubin, Direct 9.8 (H) 0.0 - 0.3 mg/dL Ethanol Result Value Ref Range Alcohol <10 <=10 mg/dL AFP Tumor Marker Result Value Ref Range Alpha-Fetoprotein 6 0 - 9 ng/mL Iron and TIBC Result Value Ref Range Iron 70 35 - 150 ug/dL UIBC 90 (L) 110 - 370 ug/dL TIBC 160 (L) 240 - 445 ug/dL % Saturation 44 25 - 45 % Ferritin Result Value Ref Range Ferritin 2,253 (H) 20 - 300 ng/mL Protein, Total, Body Fluid Result Value Ref Range Protein, Total Fluid 2.0 Not established g/dL AFB Processed Result Value Ref Range Extra Tube Hold for add-ons. Body Fluid Cell Count Result Value Ref Range Color, Fluid Yellow Colorless, Straw, Yellow Clarity, Fluid Clear Clear WBC, Fluid 133 See Comment /uL RBC, Fluid 2,000 see comment /uL Body Fluid Differential Result Value Ref Range Neutrophils %, Manual, Fluid 43 see comment % Lymphocytes %, Manual, Fluid 6 see comment % [place]/Macrophages %, Manual, Fluid 46 see comment % Eosinophils %, Manual, Fluid 5 see comment % Total Cells Counted, Fluid 100 Osmolality, urine Result Value Ref Range Osmolality, Urine Random 705 200 - 1,200 mOsm/kg Urinalysis with Reflex Culture and Microscopic Result Value Ref Range Color, Urine Dark-Yellow Light-Yellow, Yellow, Dark-Yellow Appearance, Urine Turbid (N) Clear Specific [place], Urine 1.029 1.005 - 1.035 pH, Urine 6.0 5.0, 5.5, 6.0, 6.5, 7.0, 7.5, 8.0 Protein, Urine 20 (TRACE) NEGATIVE, 10 (TRACE), 20 (TRACE) mg/dL Glucose, Urine Normal Normal mg/dL Blood, Urine NEGATIVE NEGATIVE mg/dL Ketones, Urine 40 (2+) (A) NEGATIVE mg/dL Bilirubin, Urine OVER (4+) (A) NEGATIVE mg/dL Urobilinogen, Urine 4 (2+) (A) Normal mg/dL Nitrite, Urine NEGATIVE NEGATIVE Leukocyte Esterase, Urine NEGATIVE NEGATIVE Urinalysis Microscopic Result Value Ref Range WBC, Urine 1-5 1-5, NONE /HPF RBC, Urine NONE NONE, 1-2, 3-5 /HPF Mucus, Urine 1+ Reference range not established. /LPF Drug Screen, Urine With Reflex to Confirmation Result Value Ref Range Amphetamine Screen, Urine Presumptive Negative Presumptive Negative Barbiturate Screen, Urine Presumptive Negative Presumptive Negative Benzodiazepines Screen, Urine Presumptive Negative Presumptive Negative Cannabinoid Screen, Urine Presumptive Negative Presumptive Negative Cocaine Metabolite Screen, Urine Presumptive Negative Presumptive Negative Fentanyl Screen, Urine Presumptive Negative Presumptive Negative Opiate Screen, Urine Presumptive Negative Presumptive Negative Oxycodone Screen, Urine Presumptive Negative Presumptive Negative PCP Screen, Urine Presumptive Negative Presumptive Negative Methadone Screen, Urine Presumptive Negative Presumptive Negative CBC and Auto Differential Result Value Ref Range WBC 11.2 4.4 - 11.3 x10*3/uL nRBC 0.2 (H) 0.0 - 0.0 /100 WBCs RBC 3.14 (L) 4.50 - 5.90 x10*6/uL Hemoglobin 12.0 (L) 13.5 - 17.5 g/dL Hematocrit 34.2 (L) 41.0 - 52.0 % MCV 109 (H) 80 - 100 fL MCH 38.2 (H) 26.0 - 34.0 pg MCHC 35.1 32.0 - 36.0 g/dL RDW 16.8 (H) 11.5 - 14.5 % Platelets 83 (L) 150 - 450 x10*3/uL Neutrophils % 81.1 40.0 - 80.0 % Immature Granulocytes %, Automated 0.7 0.0 - 0.9 % Lymphocytes % 10.8 13.0 - 44.0 % Monocytes % 6.7 2.0 - 10.0 % Eosinophils % 0.5 0.0 - 6.0 % Basophils % 0.2 0.0 - 2.0 % Neutrophils Absolute 9.04 (H) 1.20 - 7.70 x10*3/uL Immature Granulocytes Absolute, Automated 0.08 0.00 - 0.70 x10*3/uL Lymphocytes Absolute 1.20 1.20 - 4.80 x10*3/uL Monocytes Absolute 0.75 0.10 - 1.00 x10*3/uL Eosinophils Absolute 0.06 0.00 - 0.70 x10*3/uL Basophils Absolute 0.02 0.00 - 0.10 x10*3/uL Magnesium Result Value Ref Range Magnesium 1.85 1.60 - 2.40 mg/dL Hepatic Function Panel Result Value Ref Range Albumin 3.5 3.4 - 5.0 g/dL Bilirubin, Total 17.6 (H) 0.0 - 1.2 mg/dL Bilirubin, Direct 10.0 (H) 0.0 - 0.3 mg/dL Alkaline Phosphatase 173 (H) 33 - 120 U/L ALT 53 (H) 10 - 52 U/L AST 133 (H) 9 - 39 U/L Total Protein 5.9 (L) 6.4 - 8.2 g/dL Coagulation Screen Result Value Ref Range Protime 18.8 (H) 9.8 - 12.4 seconds INR 1.7 (H) 0.9 - 1.1 aPTT 28 26 - 36 seconds Phosphorus Result Value Ref Range Phosphorus 2.6 2.5 - 4.9 mg/dL Basic Metabolic Panel Result Value Ref Range Glucose 80 74 - 99 mg/dL Sodium 129 (L) 136 - 145 mmol/L Potassium 3.1 (L) 3.5 - 5.3 mmol/L Chloride 88 (L) 98 - 107 mmol/L Bicarbonate 29 21 - 32 mmol/L Anion Gap 15 10 - 20 mmol/L Urea Nitrogen 13 6 - 23 mg/dL Creatinine 0.71 0.50 - 1.30 mg/dL eGFR >90 >60 mL/min/1.73m*2 Calcium 8.7 8.6 - 10.6 mg/dL Assessment & Plan Generalized abdominal pain Jose Parker is a 44 y.o. male with h/o alcohol use and hepatic steatosis vs cirrhosis presenting with x1-2 week of worsening abdominal pain, distension, and jaundice admitted for decompensated cirrhosis likely d/t alcoholic hepatitis. Hyponatremia improving with IVFs (likely pre-renal). Actively in alcohol withdrawal on CIWA (17 last score). Currently on zosyn due to coverage for possible ascending cholangitis (AMS, jaundice) given elevated bilirubin [id number] to alcoholic hepatitis. 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 Bili 10; No biliary dilatation on RUQ US ::Viral Hepatitis Panel neg., AFP wnl Plan: -FU daily MELD labs -FU CT and MR interpretation from [facility] yesterday -liver ultrasound w/ doppler pending -liver stamp pending -defer steroids to hepatology -c/w zosyn iso critical illness with leukocytosis to 17 despite no SBP on para -c/w lactulose, titrate to 3-5 bm daily -c/w rifaximin 550 mg bid -consider screening EGD given decompensated cirrhosis -hepatology consulted, appreciate recs #Toxic Encephalopathy likely d/t alcohol withdrawal #Hepatic Encephalopathy ::ddx: metabolic - HE, AGMA (ketones); infectious - cholangitis, encephalitis/autoimmune encephalitis; structural - seizures; Toxin - alcohol withdrawal ::last drink Friday 12/01 Plan: -CTH w/o contrast to r/o [place]ke Encephalopathy -CIWA protocol initiated -ctm for seizures and escalate level of care if alcohol withdrawal symptoms are uncontrolled -consider med tox consult if needed -FU PETH, TSH #alcohol withdrawal #alcohol use ::tachycardic to 130s on presentation ::anxious and tremulous ::last drink was Friday 12/01 per ::alcohol <10 Plan: -CTH w/o contrast to r/o intracranial explanation for AMS -PETH pending -ciwa protocol initiated; diazepam IM ordered -nutrition consult -thiamine 500 mg IV q8h x3 days followed by 100 mg PO qd -folate 1 mg qd #c/f sepsis (2/4 SIRS - WBC and tachycardia) #c/f cholangitis (jaundice, AMS) :: elevated t and direct bili: 31/01 :: RUQ US did not show any biliary duct dilatation :: source likely biliary tree Plan: - c/w zosyn empirically - FU Bcx - ctm for signs of ascending cholangitis (fever, AMS, jaundice, RUQ pain, hypotension #Hyponatremia :: Na of 126 on admission improved w 1L LR (129) :: Serum Osm 273 (low); Urine Osm 705 (high) :: Likely pre-renal v hypervolemic (not overloaded on PE) Plan: - FU urine lytes - Strict I/Os - 1L LR bolus today #respiratory alkalosis #AGMA - resolved :: AG of 21 w/ ketonuria :: lactate normal :: VBG pH -> resp alkalosis Plan: -ctm -VBG if AG develops #gallstones #biliary colic ::RUQ ultrasound showing cholelithiasis and gallbladder sludge with no sonographic evidence of acute cholecystitis ::abdominal pain could have component of biliary colic, although it has no association to meals Plan: -consider MRI liver vs MRCP -FU w/ outpatient for possible cholecystectomy Fluids: Replete PRN with caution iso cirrhosis Electrolytes: Keep mg >2, phos >3 and K >4 Nutrition: NPO for liver imaging, 2g Na with 8979-3813 ml fluid restriction when able Access: None DVT ppx: hold iso elevated INR GI ppx: NA Bowel care: lactulose Catheter: None Antibiotics: Oxygen: Room Air Code Status: Full Code (confirmed on admission) NOK: Spouse; Jennifer Casiano Gregor Mayfield MD Internal Medicine, PGY-1 Cosigned by Brianna Singh MD at 2024 2:35 PM EDT Associated attestation - Brianna Singh MD - 2024 2:35 PM EDT I evaluated and saw the patient independently and agree with the documented note, assessment/plan per the resident physician, medical student, or JOSE. Plan was discussed with team during rounds -I assumed care of pt this am -Admitted from ED for ?1 week of abd pain/distention/jaundice, and 1 day of acute AMS; hx notable for ?cirrhosis vs hepatic steatosis, alcohol use disorder (suspected last drink 12/02; no hx of withdrawal or seizures per ) -Afebrile/HDS (tachy)/on RA; signficantly restless with visual hallucinations, tremors, AAO x 1; pt denies any abd pain/f/c/n/v/d/headache -Concern for alcohol withdrawal, HE 2/2 to decompensated cirrhosis/alcoholic hepatitis -MELD 25, Maddreys 48; pending full liver stamp; NH3 65; s/p dx para, negative for SBP -Pending OSH imaging upload from [facility] yesterday (MRI liver, CT's, ultrasounds); CTH pending -Pending full infectious, metabolic parks -Hepatology consult; appreciate recs on steroids for alcoholic hepatitis, other cirrhosis management, timing of screening EGD -Continue zosyn for now (low suspicion of cholangitis) -Lactulose; hold off on diuretics for now -CIWA protocol, s/p multiple ativan doses; consult med-tox 12/05/24 0923 Discharge Planning Living Arrangements Spouse/significant other Support Systems Spouse/significant other Assistance Needed Patient independent with ADL's Type of Residence Private residence Number of Stairs to Enter Residence 1 Number of Stairs Within Residence 15 Type of Animals or Pets A cat Who is requesting discharge planning? Provider Home or Post Acute Services None Expected Discharge Disposition Home Does the patient need discharge transport arranged? No Financial Resource Strain How hard is it for you to pay for the very basics like food, housing, medical care, and heating? Not hard Housing Stability In the last 12 months, was there a time when you were not able to pay the mortgage or rent on time? N At any time in the past 12 months, were you homeless or living in a residential (including now)? N Transportation Needs In the past 12 months, has lack of transportation kept you from medical appointments or from getting medications? no In the past 12 months, has lack of transportation kept you from meetings, work, or from getting things needed for daily living? No Patient Choice Patient / Family choosing to utilize agency / facility established prior to hospitalization No Assessment Note: Met with patient and Introduced myself as mall plant caretaker and member of the Care Transitions team for discharge planning. Patient demographics and contact information verified. Pt feels safe at home. Patient have no further questions or concerns at this time. Transportation: Patient drive to appt spouse will transport him home [facility]: [facility]) DME: None Previous home care: None Falls: No recent falls PCP: Carolyn Askew [employer]IT[employer] M[employer] HELPER Dialysis: Denies Diabetic: Denies TCC will continue to follow and update the plan as warranted. RAZA Luis-service member Coordinator (TCC) [phone] ext [phone] Images from the original note were not included. Emergency Department Transition of Care Note Signout I received Jose Parker in signout from Dr. Aleks Catalan. Please see the ED Provider Note for all HPI, PE and MDM up to the time of signout at 2300. This is in addition to the primary record. In brief Jose Parker is an 44 y.o. male presenting for abdominal pain and bloating. The patient had CT imaging at the outside hospital which showed ascites and significant liver cirrhosis as the patient does have alcohol use disorder and hepatitis C and was sent in for concern of liver failure. The patient arrived here and was tachycardic and given 500 cc of IV fluids and had labs that were notable for a leukocytosis, hyponatremia and elevated LFTs. His ammonia level was 64. The VBG did show a mixed respiratory and metabolic alkalosis with a pH of 7.5 but normal lactic acid. The patient had a diagnostic paracentesis performed just prior to signout and we are awaiting the results of those labs. The remainder of the patient's labs as well as well as a right upper quadrant ultrasound is pending at the time of signout. At the time of signout we were awaiting: Labs, right upper quadrant ultrasound and final disposition ED Course & Medical Decision Making Medical Decision Making: Under my care, the patient was reevaluated and is resting comfortably in bed in no acute distress. He does have a protuberant abdomen with mild tenderness to palpation throughout. He does remain tachycardic with a heart rate in the 100s and was given an additional 500 cc of IV fluids. He was started on 2 g of Rocephin for SBP coverage as he does meet sepsis criteria. His heart rate did improve and remained hemodynamically stable throughout the ED course. The patient was discussed with the studio coordinator who is accepted the patient for admission to the GI service for further management. The patient was admitted in stable condition. ED Course: ED Course as of 12/05/24 0153 Kiara Dec 04, [id number] Ammonia(!): 64 [MM] 2206 Attending summary: 43 y/o M with PMHx EtOH use who is presenting by instructions from his local [facility] for abnormal LFTs. Pt saw a sports journalist earlier this week and had labs checked and found to have abnormal LFTs. Had an inpatient hospital stay at [place], had labs, CT c/a/p, MRI liver. Pt reports he drinks 2-3 beers/week but used to drink 6-10/day several years ago. Last drink was 2 days ago. No hx of withdrawal. He has no complaints currently. No fevers, chills, n/v/d, abd pain. No recent travel, no hx of liver disease, no camping, didn't eat any wild mushrooms. On review of OSH records, he has elevated bili to the 12s, mildly elevated AST/ALT in the 100-200s, no other major abnormalities. Read of CT shows ?liver mass and signs of cirrhosis, portal HTN and ascites. On arrival, tachy to 130s, otherwise unremarkable. On exam, unwell but nontoxic appearing, scleral icterus and jaundice, distended but soft and nontender abdomen, no neuro deficits. No diaphoresis, tremulousness concerning for EtOH withdrawal. I suspect his symptoms are due to alcoholic hepatitis. Also concerned for new HCC. Labs from triage with leukocytosis, hyponatremia to 126, and rising tbili with stable mildly elevated AST/ALT. Will upload CT scans, get RUQ US, get broad labs and blood cx with his tachycardia and leukocytosis. I suspect his hypoNa is hypovolemic based on hx and exam but will add osms, and give IV fluids. Will do diagnostic para. Will admit to medicine. [SS] 2206 Tabathacecile's discriminant function 48.7 [SS] ED Course User Index [MM] Aleks Catalan DO [SS] Vero Machado MD Diagnoses as of 12/05/24 0153 Generalized abdominal pain Other ascites Sepsis, due to unspecified organism, unspecified whether acute organ dysfunction present (Multi) Disposition As a result of their workup, the patient will require admission to the hospital. The patient was informed of his diagnosis. The patient was given the opportunity to ask questions and I answered them. The patient agreed to be admitted to the hospital. Procedures Procedures Patient seen and discussed with ED attending physician. Beni Olsen DO Emergency Medicine Cosigned by Arleen Pichardo DO at 12/11/2024 2:42 PM EDT Associated attestation - Arleen Pichardo DO - 12/11/2024 2:42 PM EDT ATTENDING ATTESTATION: The patient was seen by the resident/fellow. I have personally performed a substantive portion of the encounter. I have seen and examined the patient; agree with the workup, evaluation, MDM, management and diagnosis. The care plan has been discussed with the resident; I have reviewed the resident s note and agree with the documented findings with any additions/exceptions as below. Arleen Pichardo DO ED Attending documented in this encounter [facility] Work Phone: 12-12-2024 Hospital Discharg e instructions Arin Gonsalez MD - 12/12/2024 10:38 AM EDT Dear Jose Worship, You were hospitalized here at [facility] on 12/04/24 after presenting to the ED with abdominal pain, jaundice, and distension. While you were hospitalized, we did imaging which showed you had some fluid in your abdomen. We initially did a diagnostic paracentesis which was negative for spontaneous bacterial peritonitis or an infection in your abdomen. We also later on did a therapeutic paracentesis where which we removed 3.7L which was also negative for infection and showed it was likely related to your liver cirrhosis. We recommend that you continue abstaining from alcohol along with limiting your sodium intake to 2g daily. In addition, we trailed a 5 day course of steroids to see if that would help the liver labs per hepatology's recommendations. You had failed that course which was evident by the unchanging liver labs. The hepatology team recommended that you follow up with them outpatient along with getting an EGD to evaluate for further liver failure. We highly recommend you go to the follow up visits. Your medications changes and follow-up appointments are listed below in detail. Referrals have been entered for your follow-up appointments. You can schedule all follow-up appointments through the [employer] jose, or you can call the central scheduling line at . Please be sure to bring your discharge paperwork to all follow-up appointments. If at any time you start developing severe abdominal pain, altered mental status, nausea, or vomiting you should immediately return to the emergency room or call 911. It was a pleasure taking care of you here at [facility]. We wish you a speedy recovery. Sincerely, Your Neurology Team Discharge Meds Your medication list ASK your doctor about these medications Instructions Last Dose Given Next Dose Due famotidine 20 mg tablet Commonly known as: Pepcid ondansetron 4 mg tablet Commonly known as: Zofran polymyxin B sulf-trimethoprim ophthalmic solution Commonly known as: Polytrim simethicone 80 mg chewable tablet Commonly known as: Mylicon Outpatient Follow-Up No future appointments. The following attachments cannot be sent through Care Everywhere.Abdominal pain in adults ED discharge instructions (Gibraltarian)documented in this encounter [facility] Work Phone: [phone] Consult note Associated Order (s): IP CONSULT TO HEPATOLOGY [facility] [place] INITIAL CONSULT NOTE Reason For Consult Alcohol hepatitis SUBJECTIVE History Of Present Illness Jose Parker is a 44 y.o. male with a past medical history of alcohol use disorder, hepatic steatosis presenting with abdomina distention, pain and jaundice admitted on 12/04/2024 concerned for alcohol withdrawal/alcoholic hepatitis. Patient is very confused at the bedside and the history obtained from . Patient first noted to have alcohol hepatitis in 2021. Established care with rn burn at [facility] but unhappy with the care. 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 Per note from rn burn, patient was told to quit alcohol. The patient was doing well until 2 weeks ago when he started to have abdominal pain, distention and jaundice. Few days prior to the admission, then patient started to become confused. Patient drinks 3~4 vodka mixed alcohol daily but the entire amounts is unclear because they work at different shifts. 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 assumes last drink was 18 or 19. reports that he never had withdrawal even when he stopped drinking when he was sick. No family history of liver disease. Review of Systems 12 point ROS otherwise negative, unless indicated above Past Medical History: Medical History[1] Home Medications Prescriptions Prior to Admission[2] Surgical History: Surgical History[3] Allergies: Allergies[4] Social History: Social History Socioeconomic History Marital status: Spouse name: Not on file Number of children: Not on file Years of education: Not on file Highest education level: Not on file Occupational History Not on file Tobacco Use Smoking status: Every Day Current packs/day: 1.50 Average packs/day: 1.5 packs/day for 0.6 years (1.0 ttl pk-yrs) Types: Cigarettes Start date: 2024 Smokeless tobacco: Current Substance and Sexual Activity Alcohol use: Yes Alcohol/week: 12.0 - 28.0 standard drinks of alcohol Types: 12 - 28 Standard drinks or equivalent per week Drug use: Not on file Sexual activity: Not on file Other Topics Concern Not on file Social History Narrative Not on file Social Drivers of Health Financial Resource Strain: Low Risk (2024) Overall Financial Resource Strain (CARDIA) Difficulty of Paying Living Expenses: Not hard at all Food Insecurity: No Food Insecurity (2024) Hunger Vital Sign Worried About Running Out of Food in the Last Year: Never true Ran Out of Food in the Last Year: Never true Transportation Needs: No Transportation Needs (2024) PRAPARE - Transportation Lack of Transportation (Medical): No Lack of Transportation (Non-Medical): No Physical Activity: Insufficiently Active (2024) Exercise Vital Sign Days of Exercise per Week: 2 days Minutes of Exercise per Session: 10 min Stress: Stress Concern Present (2024) [place] [employer] - Occupational Stress Questionnaire Feeling of Stress: To some extent Social Connections: Moderately Isolated (2024) Social Connection and Isolation Panel Frequency of Communication with Friends and Family: Three times a week Frequency of Social Gatherings with Friends and Family: Once a week Attends Synagogue Services: Never Active Member of Clubs or Organizations: No Attends Club or Organization Meetings: Never Marital Status: Intimate Partner Violence: Not At Risk (2024) Humiliation, Afraid, Rape, and Kick questionnaire Fear of Current or Ex-Partner: No Emotionally Abused: No Physically Abused: No Sexually Abused: No Housing Stability: Unknown (2024) Housing Stability Vital Sign Unable to Pay for Housing in the Last Year: No Number of Times Moved in the Last Year: Not on file Homeless in the Last Year: No Family History: Family History[5] EXAM Vitals: Vitals: 12/05/24 0807 12/05/24 1004 12/05/24 1252 12/05/24 1549 BP: 115/73 136/89 108/69 110/69 BP Location: Patient Position: Pulse: (!) 112 (!) 117 (!) 114 (!) 122 Resp: Temp: 36.8 C (98.2 F) 36.9 C (98.4 F) 36.7 C (98.1 F) 37 C (98.6 F) TempSrc: SpO2: 94% 92% 92% 90% Weight: Height: Failed to redirect to the Timeline version of the [employer] SmartLink. Intake/Output Summary (Last 24 hours) at 2024 1646 Last data filed at 2024 1152 Gross per 24 hour Intake 1343.34 ml Output -- Net 1343.34 ml Physical Exam General: Ill appearing. Jaundiced. Confused. HEENT: EOMI. Moist mucosa Respiratory: nonlabored breathing on room air Cardiovascular: RRR, no murmurs/rubs/gallops Abdomen: Soft, distended, bowel sounds present. No masses palpated Extremities: no edema, no asterixis Neuro: alert and oriented, CNII-XII grossly intact, moves all 4 extremities with no focal deficits OBJECTIVE Medications Current Medications[6] Labs Results for orders placed or performed during the hospital encounter of 12/04/24 (from the past 24 hours) ECG 12 lead Result Value Ref Range Ventricular Rate 124 BPM Atrial Rate 124 BPM NE Interval 156 ms QRS Duration 74 ms QT Interval 334 ms QTC Calculation(Bazett) 479 ms P [place] 35 degrees R [place] -11 degrees T [place] 49 degrees QRS Count 21 beats Q Onset 218 ms P Onset 140 ms P Offset 194 ms T Offset 385 ms QTC Fredericia 425 ms CBC and Auto Differential Result Value Ref Range WBC 17.7 (H) 4.4 - 11.3 x10*3/uL nRBC 0.2 (H) 0.0 - 0.0 /100 WBCs RBC 3.19 (L) 4.50 - 5.90 x10*6/uL Hemoglobin 12.1 (L) 13.5 - 17.5 g/dL Hematocrit 32.6 (L) 41.0 - 52.0 % MCV 102 (H) 80 - 100 fL MCH 37.9 (H) 26.0 - 34.0 pg MCHC 37.1 (H) 32.0 - 36.0 g/dL RDW 15.5 (H) 11.5 - 14.5 % Platelets 94 (L) 150 - 450 x10*3/uL Neutrophils % 86.0 40.0 - 80.0 % Immature Granulocytes %, Automated 1.4 (H) 0.0 - 0.9 % Lymphocytes % 6.3 13.0 - 44.0 % Monocytes % 6.0 2.0 - 10.0 % Eosinophils % 0.1 0.0 - 6.0 % Basophils % 0.2 0.0 - 2.0 % Neutrophils Absolute 15.27 (H) 1.20 - 7.70 x10*3/uL Immature Granulocytes Absolute, Automated 0.24 0.00 - 0.70 x10*3/uL Lymphocytes Absolute 1.11 (L) 1.20 - 4.80 x10*3/uL Monocytes Absolute 1.07 (H) 0.10 - 1.00 x10*3/uL Eosinophils Absolute 0.01 0.00 - 0.70 x10*3/uL Basophils Absolute 0.03 0.00 - 0.10 x10*3/uL Comprehensive metabolic panel Result Value Ref Range Glucose 84 74 - 99 mg/dL Sodium 126 (L) 136 - 145 mmol/L Potassium 5.5 (H) 3.5 - 5.3 mmol/L Chloride 88 (L) 98 - 107 mmol/L Bicarbonate 23 21 - 32 mmol/L Anion Gap 21 (H) 10 - 20 mmol/L Urea Nitrogen 13 6 - 23 mg/dL Creatinine 0.77 0.50 - 1.30 mg/dL eGFR >90 >60 mL/min/1.73m*2 Calcium 8.5 (L) 8.6 - 10.6 mg/dL Albumin 3.7 3.4 - 5.0 g/dL Alkaline Phosphatase 196 (H) 33 - 120 U/L Total Protein 6.5 6.4 - 8.2 g/dL AST 185 (H) 9 - 39 U/L Bilirubin, Total 17.9 (H) 0.0 - 1.2 mg/dL ALT 56 (H) 10 - 52 U/L Lipase Result Value Ref Range Lipase 70 9 - 82 U/L Ammonia Result Value Ref Range Ammonia 64 (H) 16 - 53 umol/L Blood Gas Venous Full Panel Unsolicited Result Value Ref Range POCT pH, Venous 7.50 (H) 7.33 - 7.43 pH POCT pCO2, Venous 37 (L) 41 - 51 mm Hg POCT pO2, Venous 41 35 - 45 mm Hg POCT SO2, Venous 61 45 - 75 % POCT Oxy Hemoglobin, Venous 58.8 45.0 - 75.0 % POCT Hematocrit Calculated, Venous 45.0 41.0 - 52.0 % POCT Sodium, Venous 125 (L) 136 - 145 mmol/L POCT Potassium, Venous 3.6 3.5 - 5.3 mmol/L POCT Chloride, Venous 90 (L) 98 - 107 mmol/L POCT Ionized Calicum, Venous 1.05 (L) 1.10 - 1.33 mmol/L POCT Glucose, Venous 90 74 - 99 mg/dL POCT Lactate, Venous 1.9 0.4 - 2.0 mmol/L POCT Base Excess, Venous 5.5 (H) -2.0 - 3.0 mmol/L POCT HCO3 Calculated, Venous 28.9 (H) 22.0 - 26.0 mmol/L POCT Hemoglobin, Venous 15.1 13.5 - 17.5 g/dL POCT Anion Gap, Venous 10.0 10.0 - 25.0 mmol/L Patient Temperature 37.0 degrees Celsius Protime-INR Result Value Ref Range Protime 18.7 (H) 9.8 - 12.4 seconds INR 1.7 (H) 0.9 - 1.1 aPTT Result Value Ref Range aPTT 27 26 - 36 seconds Blood Culture Specimen: Peripheral Venipuncture; Blood culture Result Value Ref Range Blood Culture Loaded on Instrument - Culture in progress Blood Culture Specimen: Peripheral Venipuncture; Blood culture Result Value Ref Range Blood Culture Loaded on Instrument - Culture in progress Magnesium Result Value Ref Range Magnesium 1.66 1.60 - 2.40 mg/dL Acute Toxicology Panel, Blood Result Value Ref Range Acetaminophen <10.0 10.0 - 30.0 ug/mL Salicylate <3 4 - 20 mg/dL Alcohol <10 <=10 mg/dL Hepatitis panel, acute Result Value Ref Range Hepatitis B Surface AG Nonreactive Nonreactive Hepatitis A AB- IgM Nonreactive Nonreactive Hepatitis B Core AB; IgM Nonreactive Nonreactive Hepatitis C AB Nonreactive Nonreactive Osmolality Result Value Ref Range Osmolality, Serum 273 (L) 280 - 300 mOsm/kg Bilirubin, Direct Result Value Ref Range Bilirubin, Direct 9.8 (H) 0.0 - 0.3 mg/dL Ethanol Result Value Ref Range Alcohol <10 <=10 mg/dL AFP Tumor Marker Result Value Ref Range Alpha-Fetoprotein 6 0 - 9 ng/mL Iron and TIBC Result Value Ref Range Iron 70 35 - 150 ug/dL UIBC 90 (L) 110 - 370 ug/dL TIBC 160 (L) 240 - 445 ug/dL % Saturation 44 25 - 45 % Ferritin Result Value Ref Range Ferritin 2,253 (H) 20 - 300 ng/mL Protein, Total, Body Fluid Result Value Ref Range Protein, Total Fluid 2.0 Not established g/dL AFB Processed Result Value Ref Range Extra Tube Hold for add-ons. Body Fluid Cell Count Result Value Ref Range Color, Fluid Yellow Colorless, Straw, Yellow Clarity, Fluid Clear Clear WBC, Fluid 133 See Comment /uL RBC, Fluid 2,000 see comment /uL Body Fluid Differential Result Value Ref Range Neutrophils %, Manual, Fluid 43 see comment % Lymphocytes %, Manual, Fluid 6 see comment % [place]/Macrophages %, Manual, Fluid 46 see comment % Eosinophils %, Manual, Fluid 5 see comment % Total Cells Counted, Fluid 100 Osmolality, urine Result Value Ref Range Osmolality, Urine Random 705 200 - 1,200 mOsm/kg Urinalysis with Reflex Culture and Microscopic Result Value Ref Range Color, Urine Dark-Yellow Light-Yellow, Yellow, Dark-Yellow Appearance, Urine Turbid (N) Clear Specific [place], Urine 1.029 1.005 - 1.035 pH, Urine 6.0 5.0, 5.5, 6.0, 6.5, 7.0, 7.5, 8.0 Protein, Urine 20 (TRACE) NEGATIVE, 10 (TRACE), 20 (TRACE) mg/dL Glucose, Urine Normal Normal mg/dL Blood, Urine NEGATIVE NEGATIVE mg/dL Ketones, Urine 40 (2+) (A) NEGATIVE mg/dL Bilirubin, Urine OVER (4+) (A) NEGATIVE mg/dL Urobilinogen, Urine 4 (2+) (A) Normal mg/dL Nitrite, Urine NEGATIVE NEGATIVE Leukocyte Esterase, Urine NEGATIVE NEGATIVE Urinalysis Microscopic Result Value Ref Range WBC, Urine 1-5 1-5, NONE /HPF RBC, Urine NONE NONE, 1-2, 3-5 /HPF Mucus, Urine 1+ Reference range not established. /LPF Drug Screen, Urine With Reflex to Confirmation Result Value Ref Range Amphetamine Screen, Urine Presumptive Negative Presumptive Negative Barbiturate Screen, Urine Presumptive Negative Presumptive Negative Benzodiazepines Screen, Urine Presumptive Negative Presumptive Negative Cannabinoid Screen, Urine Presumptive Negative Presumptive Negative Cocaine Metabolite Screen, Urine Presumptive Negative Presumptive Negative Fentanyl Screen, Urine Presumptive Negative Presumptive Negative Opiate Screen, Urine Presumptive Negative Presumptive Negative Oxycodone Screen, Urine Presumptive Negative Presumptive Negative PCP Screen, Urine Presumptive Negative Presumptive Negative Methadone Screen, Urine Presumptive Negative Presumptive Negative Urine electrolytes Result Value Ref Range Sodium, Urine Random <10 mmol/L Sodium/Creatinine Ratio Potassium, Urine Random 38 mmol/L Potassium/Creatinine Ratio 21 Not established mmol/g Creat Chloride, Urine Random <15 mmol/L Chloride/Creatinine Ratio Creatinine, Urine Random 179.6 20.0 - 370.0 mg/dL CBC and Auto Differential Result Value Ref Range WBC 11.2 4.4 - 11.3 x10*3/uL nRBC 0.2 (H) 0.0 - 0.0 /100 WBCs RBC 3.14 (L) 4.50 - 5.90 x10*6/uL Hemoglobin 12.0 (L) 13.5 - 17.5 g/dL Hematocrit 34.2 (L) 41.0 - 52.0 % MCV 109 (H) 80 - 100 fL MCH 38.2 (H) 26.0 - 34.0 pg MCHC 35.1 32.0 - 36.0 g/dL RDW 16.8 (H) 11.5 - 14.5 % Platelets 83 (L) 150 - 450 x10*3/uL Neutrophils % 81.1 40.0 - 80.0 % Immature Granulocytes %, Automated 0.7 0.0 - 0.9 % Lymphocytes % 10.8 13.0 - 44.0 % Monocytes % 6.7 2.0 - 10.0 % Eosinophils % 0.5 0.0 - 6.0 % Basophils % 0.2 0.0 - 2.0 % Neutrophils Absolute 9.04 (H) 1.20 - 7.70 x10*3/uL Immature Granulocytes Absolute, Automated 0.08 0.00 - 0.70 x10*3/uL Lymphocytes Absolute 1.20 1.20 - 4.80 x10*3/uL Monocytes Absolute 0.75 0.10 - 1.00 x10*3/uL Eosinophils Absolute 0.06 0.00 - 0.70 x10*3/uL Basophils Absolute 0.02 0.00 - 0.10 x10*3/uL Magnesium Result Value Ref Range Magnesium 1.85 1.60 - 2.40 mg/dL Hepatic Function Panel Result Value Ref Range Albumin 3.5 3.4 - 5.0 g/dL Bilirubin, Total 17.6 (H) 0.0 - 1.2 mg/dL Bilirubin, Direct 10.0 (H) 0.0 - 0.3 mg/dL Alkaline Phosphatase 173 (H) 33 - 120 U/L ALT 53 (H) 10 - 52 U/L AST 133 (H) 9 - 39 U/L Total Protein 5.9 (L) 6.4 - 8.2 g/dL Coagulation Screen Result Value Ref Range Protime 18.8 (H) 9.8 - 12.4 seconds INR 1.7 (H) 0.9 - 1.1 aPTT 28 26 - 36 seconds Phosphorus Result Value Ref Range Phosphorus 2.6 2.5 - 4.9 mg/dL Basic Metabolic Panel Result Value Ref Range Glucose 80 74 - 99 mg/dL Sodium 129 (L) 136 - 145 mmol/L Potassium 3.1 (L) 3.5 - 5.3 mmol/L Chloride 88 (L) 98 - 107 mmol/L Bicarbonate 29 21 - 32 mmol/L Anion Gap 15 10 - 20 mmol/L Urea Nitrogen 13 6 - 23 mg/dL Creatinine 0.71 0.50 - 1.30 mg/dL eGFR >90 >60 mL/min/1.73m*2 Calcium 8.7 8.6 - 10.6 mg/dL TSH Result Value Ref Range Thyroid Stimulating Hormone 3.10 0.44 - 3.98 mIU/L Blood Gas Venous Full Panel Result Value Ref Range POCT pH, Venous 7.49 (H) 7.33 - 7.43 pH POCT pCO2, Venous 34 (L) 41 - 51 mm Hg POCT pO2, Venous 63 (H) 35 - 45 mm Hg POCT SO2, Venous 92 (H) 45 - 75 % POCT Oxy Hemoglobin, Venous 89.3 (H) 45.0 - 75.0 % POCT Hematocrit Calculated, Venous 47.0 41.0 - 52.0 % POCT Sodium, Venous 123 (L) 136 - 145 mmol/L POCT Potassium, Venous 3.3 (L) 3.5 - 5.3 mmol/L POCT Chloride, Venous 90 (L) 98 - 107 mmol/L POCT Ionized Calicum, Venous 1.08 (L) 1.10 - 1.33 mmol/L POCT Glucose, Venous 82 74 - 99 mg/dL POCT Lactate, Venous 2.4 (H) 0.4 - 2.0 mmol/L POCT Base Excess, Venous 3.0 -2.0 - 3.0 mmol/L POCT HCO3 Calculated, Venous 25.9 22.0 - 26.0 mmol/L POCT Hemoglobin, Venous 15.5 13.5 - 17.5 g/dL POCT Anion Gap, Venous 10.0 10.0 - 25.0 mmol/L Patient Temperature 37.0 degrees Celsius FiO2 21 % Lactate Result Value Ref Range Lactate 1.6 0.4 - 2.0 mmol/L Imaging 2024 IMPRESSION: 1. The patient declined to complete the examination. 2. Cirrhotic morphology of the liver with moderate volume intra-abdominal ascites of the images obtained before the patient terminated the exam. GI Procedures None ASSESSMENT / PLAN ASSESSMENT/PLAN: Jose Parker is a 44 y.o. male with a past medical history of alcohol use disorder, hepatic steatosis presenting with abdomina distention, pain and jaundice admitted on 12/04/2024 concerned for alcohol withdrawal/alcoholic hepatitis. #Alcohol withdrawal #Alcoholic hepatitis Presentation is consistent with alcohol withdrawal with elevated CIWA requiring BDZ. reports the patient never having withdrawal in the past. Patient was first found to have alcoholic hepatitis in 2021 when he was told to stop alcohol but has been continuously drinking 3~4 mixed vodka drinks until recently. Lab is consistent with alcoholic hepatitis (T seth 17.6, AST 133/ALT 53>2, ALP 173). Low Na 129. MDF 58>32. Patient also has AMS likely from alcohol withdrawal but will check CTH to r/o intracranial pathology. Paracentesis on 12/04 with WBC 133 ruling out SBP. No albumin collected to calculate SAAG. Low TP of 2.0. UA neg. Awaiting blood cultures. Will await the infection work up as well as CTH. We could consider steroid for alcoholic hepatitis if all the infectious work negative and lab continues to show worsening liver function (T-seth/INR). Plan -Obtain CT head -Await cultures -Continue CIWA protocol -Continue rifaximin/lactulose -Continue thiamin/MVI -Daily MELD lab (CBC, LFT, BMP, INR) -Await [facility] Patient was seen and discussed with Dr. Renteria Thank you for the consultation. Hepatology will continue to the follow. - During weekday hours of 7am- 5pm, please do not hesitate to contact me on [employer] Chat or page [phone] if there are any further questions - After hours, on weekends, and on holidays, [place] [phone]. Thank you. Elena Quinteros MD PGY6 Gastroenterology Fellow [facility] [1] History reviewed. No pertinent past medical history. [2] Medications Prior to Admission Medication Sig Dispense Refill Last Dose/Taking famotidine (Pepcid) 20 mg tablet Take 1 tablet (20 mg) by mouth once daily as needed for heartburn or indigestion. ondansetron (Zofran) 4 mg tablet Take 1 tablet (4 mg) by mouth every 8 hours if needed for nausea or vomiting. polymyxin B sulf-trimethoprim (Polytrim) ophthalmic solution Administer 1 drop into both eyes every 4 hours. For 7 days simethicone (Mylicon) 80 mg chewable tablet Chew and swallow 1 tablet (80 mg) every 6 hours if needed for flatulence. [3] History reviewed. No pertinent surgical history. [4] No Known Allergies [5] No family history on file. [6] Current Facility-Administered Medications: diazePAM (Valium) injection 10 mg, 10 mg, intravenous, q2h PRN, Gamal Garcia MD, 10 mg at 12/05/24 1325 folic acid (Folvite) tablet 1 mg, 1 mg, oral, Daily, Azalia Zamora MD, 1 mg at 12/05/24 0856 lactulose 20 gram/30 mL oral solution 20 g, 20 g, oral, TID, Azalia Zamora MD, 20 g at 12/05/24 1549 magnesium sulfate 2 g in sterile water for injection 50 mL, 2 g, intravenous, Once, Gregor Mayfield MD, Last Rate: 25 mL/hr at 12/05/24 1547, 2 g at 12/05/24 1547 multivitamin with minerals 1 tablet, 1 tablet, oral, Daily, Azalia Zamora MD, 1 tablet at 12/05/24 0856 piperacillin-tazobactam (Zosyn) 3.375 g in dextrose (iso) IV 50 mL, 3.375 g, intravenous, q6h, Azalia Zamora MD, Last Rate: 0 mL/hr at 12/05/24 0928, 3.375 g at 12/05/24 1547 polyethylene glycol (Glycolax, Miralax) packet 17 g, 17 g, oral, Daily, Azalia Zamora MD potassium phosphates 15 mmol in dextrose 5% 250 mL IV, 15 mmol, intravenous, Once, Gregor Mayfield MD rifAXIMin (Xifaxan) tablet 550 mg, 550 mg, oral, q12h ANTOINE, Azalia Zamora MD, 550 mg at 12/05/24 0856 [START ON 12/08/2024] thiamine (Vitamin B-1) tablet 100 mg, 100 mg, oral, Daily, Azalia Zamora MD thiamine (Vitamin B1) injection 500 mg, 500 mg, intravenous, q8h ANTOINE, Azalia Zamora MD, 500 mg at 12/05/24 0558 Cosigned by Alessandro Renteria MD at 2024 8:48 PM EDT Associated attestation - Alessandro Renteria MD - 2024 8:48 PM EDT Attending addendum: I saw and evaluated the patient. I personally obtained the critical portions of the history and physical exam. The case was discussed in detail with the fellow; including, but not limited to the chief complaint, HPI, past history, physical findings, labs and radiological findings. I agree with the fellow's medical decision making as documented in the fellow's note. The patient was counseled on the possible differential diagnoses and testing needed to arrive at a diagnosis or a treatment plan. Hepatology is consulted for alcoholic liver disease, alcoholic cirrhosis and alcoholic hepatitis. The patient has a long history of alcohol abuse. He has actually been seen in the GI and liver clinics at [facility] in the past. They have recommended that he avoid all alcohol use. Unfortunately, despite that, he has continued to abuse alcohol. They have done extensive workup on him in the past as outlined in the chart. FibroScan in 2021 showed cirrhosis. 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 He was seen by his local providers at [place] a few days ago. The exact reason he saw him relates to increased abdominal distention, altered mental status and jaundice. He did apparently undergo CT and MRI there. We will need to review the results of these films. However, he was noted to be tachycardic and extremely jaundiced. He had actually supposedly seen a GI doctor locally that same day. He was then sent to the emergency room with presumed acute alcoholic hepatitis. He had noticed increased abdominal distention and jaundice. Upon admission here, he is confused. He is shaking and agitated. His alcohol level here was negative but he appears to be going through significant alcohol withdrawal. He should be on a CIWA protocol. If he has not had imaging of his brain, this should be done. He underwent paracentesis here which showed no evidence of SBP. His labs are consistent with very severe acute alcoholic hepatitis. I would recommend that he be lynn-cultured. If his cultures are negative and his bilirubin does not improve in the next couple of days, we would likely recommend steroids for his severe alcoholic hepatitis. We did speak to him and his about the very high mortality associated with severe alcoholic hepatitis. I would check a baseline PETH level. Assuming he survives this episode, he needs to get into a formal alcohol rehab program. If he were to ever be considered for transplant, this would be mandatory. He is not currently a transplant candidate given the fact that he has been told on several occasions to stop drinking but continues to abuse alcohol. Alessandro Renteria MD, CRISTINA, FAASLD, [facility], Hepatology Senior Attending Physician [facility] [place] accounts receivable assistant Division of Gastroenterology and Liver Disease [facility] [employer] [address] [place] [id number] Associated Order(s): IP CONSULT TO NUTRITION SERVICES Nutrition Initial Assessment: Nutrition Assessment Reason for Assessment: Admission nursing screening Patient is a 44 y.o. male presenting with abdominal pain, distention, and jaundice x 1-2 weeks. PMH of alcohol use and hepatic steatosis vs cirrhosis. Patient was assessed virtually. Nutrition History: Food and Nutrient History: Pt currently disoriented x 3. Per MD note, pt is NPO for liver imaging. Anthropometrics: Height: 172.2 cm (5' 7.8) Weight: 78.9 kg (174 lb) BMI (Calculated): 26.62 IBW/kg (Dietitian Calculated): 70 kg Percent of IBW: 113 % Weight History: Wt Readings from Last 10 Encounters: 12/05/24 78.9 kg (174 lb) Weight Change %: Weight History / % Weight Change: No weight history available to assess Nutrition Focused Physical Exam Findings: Defer: remote assessment Subcutaneous Fat Loss: Muscle Wasting: Edema: Physical Findings: Digestive System Findings: Abdominal distension Nutrition Significant Labs: BMP Trend: Results from last 7 days Lab Units 12/05/24 0740 12/04/24 1939 GLUCOSE mg/dL 80 84 CALCIUM mg/dL 8.7 8.5* SODIUM mmol/L 129* 126* POTASSIUM mmol/L 3.1* 5.5* CO2 mmol/L 29 23 CHLORIDE mmol/L 88* 88* BUN mg/dL 13 13 CREATININE mg/dL 0.71 0.77 Nutrition Specific Medications: Scheduled medications folic acid, 1 mg, oral, Daily lactulose, 20 g, oral, TID multivitamin with minerals, 1 tablet, oral, Daily polyethylene glycol, 17 g, oral, Daily [START ON 12/08/2024] thiamine, 100 mg, oral, Daily thiamine, 500 mg, intravenous, q8h ANTOINE I/O: Last BM Date: 12/05/24; Stool Appearance: Soft (12/05/24423) Dietary Orders (From admission, onward) Start Ordered 12/05/24424 May Not Participate in Room Service ( ROOM SERVICE MAY NOT PARTICIPATE) Once Question: . Answer: Yes 12/05/24 04212/05/24 0159 NPO Diet; Effective now Diet effective now 12/05/24 0201 Estimated Needs: Total Energy Estimated Needs in 24 hours (kCal): 2450 kCal Method for Estimating Needs: 30-35 kcal/kg IBW, cirrhosis Total Protein Estimated Needs in 24 Hours (g): 105 g Method for Estimating 24 Hour Protein Needs: 1.2-1.5 gm/kg IBW, cirrhosis Total Fluid Estimated Needs in 24 Hours (mL): 1750 mL Method for Estimating 24 Hour Fluid Needs: ~25 mL/kcal, hyponatremia Nutrition Diagnosis Nutrition Diagnosis Patient has Nutrition Diagnosis: Yes Diagnosis Status (1): New Nutrition Diagnosis 1: Inadequate oral intake Related to (1): abdominal pain As Evidenced by (1): pt is NPO for liver imaging Nutrition Interventions/Recommendations Nutrition prescription for oral nutrition Nutrition Recommendations: Individualized Nutrition Prescription Provided for : Advance diet per MD recommendations. Re-evaluate need for oral nutrition supplement at follow-up visit. Nutrition Interventions/Goals: Education Documentation No documentation found. Nutrition Monitoring and Evaluation Additional Plans: Less than 5 days NPO/clear liquids Goal Status: New goal(s) identified Time Spent (min): 45 minutes 12/05/24 at 1:31 PM - SANDRA ARNOLD RDN, LD documented in this encounter [facility] Work Phone: [phone] History and physical note MEDICINE ADMISSION NOTE HISTORY PRESENT ILLNESS Jose Parker is a 44 y.o. male with h/o alcohol use and hepatic steatosis vs cirrhosis admitted to [facility] 12/05/24 with x1-2 week of worsening abdominal pain, distension, and jaundice. Per EMR pt presented to his PCP in 12/2021 with bloating, nausea, and constipation. Workup revealed abnormal LFTs and he was referred for a CT of the abdomen and pelvis which showed hepatic steatosis with mildly nodular hepatic contour suggesting cirrhosis, recanalization of the paraumbilical vein most compatible with portal hypertension, and small volume of abdominopelvic ascites. He was referred to GI at [facility] in January. Liver ultrasound with doppler showed hepatic steatosis, bidirectional primarily antegrade flow in the left portal vein otherwise patent hepatic vasculature with appropriately directed flow, and recanalized umbilical vein. Fibroscan from 02/2022 showed IQR 4% kpa 74.3 CAP 329 suggesting fibrosis stage F4 and steatosis grade of S3. The etiology of his liver disease was determined to be alcohol given his hx of heavy use starting at age 14. This was supported by PETH >800. 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 He established care with [facility] clinic but was subsequently lost to follow up. Pt now presenting with x1-2 wks of worsening abdominal pain, distension, and jaundice. He is accompanied by his who provides additional history. He was feeling fine until last Friday 11/24 when he developed cramping abdominal pain and distension. He attributed the distension to constipation and the pain was manageable at first. He subsequently became jaundiced and his pain worsened to the point where he was doubling over and having difficulty breathing, prompting him to present to a local ED on saturday 12/02. He reportedly underwent an extensive workup but the records are not available in care everywhere. On he saw his PCP (or was it GI?) who told him he needs to be admitted either to or [facility] downtown. On current evaluation he is not having abdominal pain and does not feel distended. He did undergo paracentesis earlier on in the ED which has provided him with significant relief. He is anxious and shaky but feels fine otherwise. He is a&ox3 for the majority of the conversation but there are instances where he gets confused and says something that doesn't make sense. Both him and his report intermittent confusion over the past few days. He continues to drink alcohol daily, usually has x3-4 mixed vodka drinks. His last drink was Sunday night. He does not recall having had symptoms of withdrawal in the past and states his heart rate has always run in the low 100s ever since he was a kid. On presentation to the ED he was tachycardic to 130s but vitally stable otherwise. Labs notable for Na 126, K 5.5 (mod hemolysis), Cl 88. CBC showed leukocytosis with wbc 17.7, hb 12.1, platelets 94. INR 1.7, PT 18.7. LFTs show alk phos 196, alt 56, ast 186, total bili 17.9, direct bili 9.8. Acetaminophen <10, salicylate <10, alcohol <10. Urinalysis showed 2+ ketones, 4+ bilirubin, 2+ urobilinogen, nitrite and leuk est both -ve. Utox is -ve. RUQ ultrasound showed cholelithiasis and gallbladder sludge with no sonographic evidence of acute cholecystitis, hepatomegaly, diffuse heterogeneity of the liver with a nodular contur, and a moderate amt of ascites. He had a diagnostic paracentesis which was -ve for SBP. He was given x1 dose of ceftriaxone 2g IV and 1L IVF. Review of Systems Per HPI. ROS -ve unless stated otherwise. ED Course: BP: 135/80 Temperature: 37.4 C (99.3 F) Heart Rate: (!) 134 Respirations: 16 Pulse Ox: 99 % Labs: CBC: WBC 17.7 , HGB 12.1, PLT 94 BMP: NA 126, K 5.5, Cl 88, HCO3 23, BUN 13, CR 0.77, Glu 84 CALCIUM 8.5 LFTS: ALB 3.7 AST 185 , ALT 56, ALKPHOS 196 , TBILI 17.9 , DBILI 9.8 COAGS: PT 18.7 , PTT 27 , INR 1.7 Imaging: === 12/04/2024 === US RIGHT UPPER QUADRANT IMPRESSION: 1. Cholelithiasis and gallbladder sludge with no sonographic evidence of acute cholecystitis. 2. Hepatomegaly. Diffuse heterogeneity of the liver with a nodular contour. Please correlate with clinical history of cirrhosis and with LFTs. 3. Moderate amount of abdominal ascites. ED Interventions: Medications lactated Ringer's bolus 500 mL (500 mL intravenous New Bag 2455) lactated Ringer's bolus 500 mL (0 mL intravenous Stopped 2453) lidocaine (Xylocaine) 10 mg/mL (1 %) injection 10 mL (10 mL intravenous Given 12/04/242228) cefTRIAXone (Rocephin) 2 g in dextrose (iso) IV 50 mL (0 g intravenous Stopped 12/05/24 011) Past Medical History Medical History[1] Surgical History Surgical History[2] Social History He has no history on file for tobacco use, alcohol use, and drug use. Family History Family History[3] Allergies Patient has no known allergies. PHYSICAL EXAM Current Vitals BP 109/67 Pulse (!) 106 Temp 37.4 C (99.3 F) Resp 15 Ht 1.727 m (5' 8) Wt 79.1 kg (174 lb 6.4 oz) SpO2 95% BMI 26.52 kg/m Physical Exam General: A&Ox3 but intermittently confused. Tremulous but NAD. HEENT: NC/AT. MMM. Scleral icterus present. Respiratory: Normal respiratory effort on room air. CTA bilaterally. No wheezes, crackles, or rhonchi. Cardiovascular: Tachycardic, sinus. +ve systolic flow murmur. Radial pulses 2+. Abdominal: Soft, mildly distended, nontender to palpation. Liver edge palpated well below the costal margin. No rebound tenderness or involuntary guarding. : No suprapubic tenderness. Ext: No edema bilateral LE. Skin: Warm, dry. No rashes or wounds. Spider angiomas over bilateral upper ext, chest, neck. Neuro: Patient oriented to self, date, place, and situation. Intermittent confusion regarding timeline of events (thought he saw the GI doctor at [facility] a few weeks ago). Few instances of saying things that don't make sense (ongoing issue per his spouse). No asterixis and no focal neuro deficits otherwise. Psych: Anxious. Medications Home Meds Prior to Admission medications Not on File Scheduled medications Scheduled Medications[4] Continuous medications Continuous Medications[5] PRN medications PRN Medications[6] ASSESSMENT AND PLAN 44 y.o. male with h/o alcohol use and hepatic steatosis vs cirrhosis admitted to [facility] 12/05/24 with x1 week of worsening abdominal pain, distension, and jaundice. #alcoholic hepatitis, maddrey's discriminant function 48.7 #decompensated cirrhosis (HE, ascites), MELD 3.0 25, MELD-Na 29 #liver disease 2/2 alcohol : :pt with known liver disease since at least 12/2021 likely compensated cirrhosis without clinically significant portal htn vs advanced fibrosis at that time, subsequently lost to follow up : :now presenting with clinical picture c/f alc hep with underlying decompensated cirrhosis iso continued alcohol use plan -daily meld labs -liver ultrasound with doppler pending -liver stamp pending -defer steroids to hepatology -start pip-tazo iso critical illness with leukocytosis to 17 despite no SBP on para -start lactulose, titrate to 3-5 bm daily -start rifaximin 550 mg bid -hepatology consult #alcohol use #c/f alcohol withdrawal : :tachycardic to 130s on presentation : :anxious and tremulous : :last drink was Saturday 12/02 : :alcohol <10 plan -PETH pending -ciwa protocl -nutrition consult -thiamine 500 mg IV q8h x3 days followed by 100 mg PO qd -folate 1 mg qd #gallstones : :RUQ ultrasound showing cholelithiasis and gallbladder sludge with no sonographic evidence of acute cholecystitis : :abdominal pain could have component of biliary colic, although it has no association to meals plan -consider MRI liver vs MRCP -pt is not a good surgical candidate at the moment but should have his gallbladder removed at some point Fluids: Replete PRN with caution iso cirrhosis Electrolytes: Keep mg >2, phos >3 and K >4 Nutrition: NPO for liver imaging, 2g Na with 4193-8987 ml fluid restriction when able Access: PIV DVT ppx: hold iso elevated INR GI ppx: NA Bowel care: lactulose Catheter: None Antibiotics: Oxygen: Room Air Code Status: Full Code (confirmed on admission) NOK: Spouse Patient to be formally staffed tomorrow --- Azalia Zamora MD Internal Medicine PGY2 [1] No past medical history on file. [2] No past surgical history on file. [3] No family history on file. [4] lactated Ringer's, 500 mL, intravenous, Once [5] [6] Cosigned by Brianna Singh MD at 2024 2:18 PM EDT Associated attestation - Brianna Singh MD - 2024 2:18 PM EDT Patient admitted by resident physician, medical student, or JOSE. I agree with the general outline of the resident physician/medical student plan, but will evaluate and see patient on next business day. Case to be staffed with day team documented in this encounter [facility] Work Phone: 12-04-2024 Emergency department Note Images from the original note were not included. Emergency Department Provider Note History of Present Illness History provided by: Patient and Significant Other Limitations to History: None External Records Reviewed with Brief Summary: None HPI: Jose Parker is a 43 y.o. male with past medical history of alcohol abuse, cirrhosis who presents to the ED after being referred here for admission for concern of acute alcohol hepatitis. 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 Has felt abdominal distention for the past few days. Arrived at work on 12/02 where he was sent home after his boss saw the patient and was concerned for his appearance, jaundice, abdominal distention, pale. Presented to an outside ED at that time where lab work was obtained and showed elevated LFTs. Patient was ultimately discharged with instructions to follow-up with gastroenterology which she did the following day, they obtained labs and ordered a diagnostic and therapeutic paracentesis but was not performed. Also concerning findings of possible neoplasm, was then referred to hematology oncology which she saw earlier today, repeat blood work was concerning and they referred him to either or [facility] for admission. Patient chose as he has seen [facility] in the past and had a bad experience. States that he used to drink daily, now only drinks 2-3 times daily, has not drank in the past several days. Denies drugs or alcohol. Denies traveling out of state or country, denies mushroom ingestion. States abdominal distention without abdominal pain. Denies fevers or chills, leg pain or leg swelling, headache, change in vision, chest pain or shortness of breath, any further acute medical complaints at this time. Physical Exam Triage vitals: T 37.4 C (99.3 F) HR (!) 134 BP 135/80 RR 16 O2 99 % None (Room air) General: Awake, alert, in no acute distress Eyes: Gaze conjugate. Scleral icterus bilaterally HENT: Normo-cephalic, atraumatic. No stridor CV: Tachycardic rate, regular rhythm. Radial pulses 2+ bilaterally Resp: Breathing non-labored, speaking in full sentences. Clear to auscultation bilaterally GI: Soft, moderately distended with palpable smooth nontender enlarged liver. No tenderness appreciated. No rebound or guarding. MSK/Extremities: No gross bony deformities. Moving all extremities Skin: Diffuse jaundice Neuro: Alert. Oriented. Face symmetric. Speech is fluent. Gross strength and sensation intact in b/l UE and LEs Psych: Appropriate mood and affect Medical Decision Making & ED Course Medical Decision Makin y.o. male here for admission for decompensated acute alcoholic cirrhosis with ascites. Also concern for malignancy. Abdominal exam benign with exception of enlarged smooth liver and abdominal distention without tenderness. Plan for diagnostic paracentesis to rule out SBP given white count of 17. AST approximately 3X ALT. Cholestatic pattern. Will obtain right upper quadrant ultrasound to assess for biliary tree obstruction. Patient initially tachycardic, will treat with fluids and assess for response. Hyponatremic, serum and urine osmolarity sent. Paracentesis performed. Ascitic fluid sent. Pending labs and ultrasound and admission, patient signed out to oncoming provider. ---- Differential diagnoses considered include but are not limited to: Acute liver failure, alcoholic hepatitis, SBP, malignancy Social Determinants of Health which Significantly Impact Care: Social Determinants of Health which Significantly Impact Care: None identified Independent Result Review and Interpretation: Relevant laboratory and radiographic results were reviewed and independently interpreted by myself. As necessary, they are commented on in the ED Course. Chronic conditions affecting the patient's care: As documented above in MDM The patient was discussed with the following consultants/services: None Care Considerations: As documented above in [facility] ED Course: ED Course as of 12/04/24 232 Kiara Dec 04, [id number] Ammonia(!): 64 [MM] 2206 Attending summary: 43 y/o M with PMHx EtOH use who is presenting by instructions from his local [facility] for abnormal LFTs. Pt saw a sports journalist earlier this week and had labs checked and found to have abnormal LFTs. Had an inpatient hospital stay at [place], had labs, CT c/a/p, MRI liver. Pt reports he drinks 2-3 beers/week but used to drink 6-10/day several years ago. Last drink was 2 days ago. No hx of withdrawal. He has no complaints currently. No fevers, chills, n/v/d, abd pain. No recent travel, no hx of liver disease, no camping, didn't eat any wild mushrooms. On review of OSH records, he has elevated bili to the 12s, mildly elevated AST/ALT in the 100-200s, no other major abnormalities. Read of CT shows ?liver mass and signs of cirrhosis, portal HTN and ascites. On arrival, tachy to 130s, otherwise unremarkable. On exam, unwell but nontoxic appearing, scleral icterus and jaundice, distended but soft and nontender abdomen, no neuro deficits. No diaphoresis, tremulousness concerning for EtOH withdrawal. I suspect his symptoms are due to alcoholic hepatitis. Also concerned for new HCC. Labs from triage with leukocytosis, hyponatremia to 126, and rising tbili with stable mildly elevated AST/ALT. Will upload CT scans, get RUQ US, get broad labs and blood cx with his tachycardia and leukocytosis. I suspect his hypoNa is hypovolemic based on hx and exam but will add osms, and give IV fluids. Will do diagnostic para. Will admit to medicine. [SS] 2206 Amanuel's discriminant function 48.7 [SS] ED Course User Index [MM] Aleks Catalan DO [SS] Vero Machado MD Disposition Patient was signed out to Dr. Olsen at 2300 pending completion of their work-up. Please see the next provider's transition of care note for the remainder of the patient's care. Procedures Procedures Patient seen and discussed with ED attending physician. Aleks Catalan DO Emergency Medicine Aleks Catalan DO Resident 12/04/242321 Cosigned by Vero Machado MD at 12/11/2024 12:19 PM EDT Associated attestation - Vero Machado MD - 12/11/2024 12:19 PM EDT The patient was seen by the resident/fellow. I have personally performed a substantive portion of the encounter. I have seen and examined the patient; agree with the workup, evaluation, MDM, management and diagnosis. The care plan has been discussed with the resident; I have reviewed the resident s note and agree with the documented findings. Patient states that he has been sick for the past x2 weeks and noticed yellow tint to his sclera. Patient had abdominal bloating, flank pain and abdominal pain and low output. Patient had labs drawn at renal specialist today and it showed acute liver failure. Patient had labs drawn at [facility]. Patient is having disperse abdominal pain. documented in this encounter [facility] Work Phone: 12-04-2024 Note HNO ID: [id number] Author: PIEDAD RIBEIRO APRN.FURNITURE MOVER HELPER Service: ? Author Type: Nurse Practitioner Type: Progress Notes Filed: 12/04/2024 12:43 Note Text: [facility] Parker is a 43 year old male. Patient presents with: Eye Problem: Possible SETH pink eye x 2 days HPI Patient presents today with concern for bilateral pinkeye. Patient states that he awoke especially this morning with eyes that were matted shut. Denies any trauma to the eye and does not wear contacts. Denies any nausea vomiting or fever. Review of Systems As above Objective BP 120/78 Pulse (!) 140 Temp 37.7 ?C (99.8 ?F) Resp 21 Wt 79 kg (174 lb 2.6 oz) SpO2 94% BMI 25.72 kg/m? Physical Exam Vitals and nursing note reviewed. Constitutional: General: He is not in acute distress. Appearance: Normal appearance. He is not ill-appearing. HENT: Head: Normocephalic. Mouth/Throat: Mouth: Mucous membranes are moist. Eyes: General: Scleral icterus present. Comments: Mildly injected bilateral eyes with bilateral scleral icterus Cardiovascular: Rate and Rhythm: Regular rhythm. Tachycardia present. Pulmonary: Effort: Pulmonary effort is normal. Breath sounds: Normal breath sounds. Musculoskeletal: General: Normal range of motion. Cervical back: Normal range of motion. Skin: General: Skin is warm and dry. Coloration: Skin is jaundiced. Neurological: General: No focal deficit present. Mental Status: He is alert. Psychiatric: Mood and Affect: Mood normal. Behavior: Behavior normal. {ASSESSMENT/PLAN: 1. Acute bacterial conjunctivitis of both eyes - ICD9: 372.03, ICD10: H10.33 (primary diagnosis) - see medication orders - course and contagiousness issues discussed, including hand washing. - Instructed to call if high fever, development of periorbital redness or swelling, eye pain, visual changes, concerns or if symptoms persist. - POLYMYXIN B SULFATE 10,000 UNIT-TRIMETHOPRIM 1 MG/ML EYE DROPS 2. Tachycardia - ICD9: 785.0, ICD10: R00.0 - Discussed the patient's heart rate with him who notes that he does have a normally high resting heart rate of 100-105 however as of right now he states he feels very anxious regarding his recent appointment with the GI doctor. Patient denying any chest pain or shortness of breath. Patient states that he feels his heart rate will return to normal and does not want any further testing 3. Jaundice - ICD9: 782.4, ICD10: R17 -On initial presentation patient was extremely jaundiced throughout the face extending down into the arms with bilateral scleral icterus. I did discuss this with the patient who noted that he just left his GI doctor's office where a large amount of blood was taken and he is scheduled for multiple tests tomorrow. Patient's history does show alcohol use/abuse. As patient does have ongoing follow-up with test scheduled for tomorrow no further action was needed on this presentation at this time Piedad Ribeiro APRN.FURNITURE MOVER HELPER History and Record Review External record(s) reviewed: prior outpatient record and prior labs/imaging. Systemic symptoms present included: Tachycardia Disposition The patient was discharged. Transfer to ED was considered. Reason for not transferring: Patient has close follow-up scheduled as outpatient Procedures [facility] 12-04-2024 History of Presen t illness Narrative [facility] Jose Parker is a 43 year old male. Patient presents with: Eye Problem: Possible SETH pink eye x 2 days HPI Patient presents today with concern for bilateral pinkeye. Patient states that he awoke especially this morning with eyes that were matted shut. Denies any trauma to the eye and does not wear contacts. Denies any nausea vomiting or fever. Review of Systems As above Objective BP 120/78 Pulse (!) 140 Temp 37.7 C (99.8 F) Resp 21 Wt 79 kg (174 lb 2.6 oz) SpO2 94% BMI 25.72 kg/m Physical Exam Vitals and nursing note reviewed. Constitutional: General: He is not in acute distress. Appearance: Normal appearance. He is not ill-appearing. HENT: Head: Normocephalic. Mouth/Throat: Mouth: Mucous membranes are moist. Eyes: General: Scleral icterus present. Comments: Mildly injected bilateral eyes with bilateral scleral icterus Cardiovascular: Rate and Rhythm: Regular rhythm. Tachycardia present. Pulmonary: Effort: Pulmonary effort is normal. Breath sounds: Normal breath sounds. Musculoskeletal: General: Normal range of motion. Cervical back: Normal range of motion. Skin: General: Skin is warm and dry. Coloration: Skin is jaundiced. Neurological: General: No focal deficit present. Mental Status: He is alert. Psychiatric: Mood and Affect: Mood normal. Behavior: Behavior normal. {ASSESSMENT/PLAN: 1. Acute bacterial conjunctivitis of both eyes - ICD9: 372.03, ICD10: H10.33 (primary diagnosis) - see medication orders - course and contagiousness issues discussed, including hand washing. - Instructed to call if high fever, development of periorbital redness or swelling, eye pain, visual changes, concerns or if symptoms persist. - POLYMYXIN B SULFATE 10,000 UNIT-TRIMETHOPRIM 1 MG/ML EYE DROPS 2. Tachycardia - ICD9: 785.0, ICD10: R00.0 - Discussed the patient's heart rate with him who notes that he does have a normally high resting heart rate of 100-105 however as of right now he states he feels very anxious regarding his recent appointment with the GI doctor. Patient denying any chest pain or shortness of breath. Patient states that he feels his heart rate will return to normal and does not want any further testing 3. Jaundice - ICD9: 782.4, ICD10: R17 -On initial presentation patient was extremely jaundiced throughout the face extending down into the arms with bilateral scleral icterus. I did discuss this with the patient who noted that he just left his GI doctor's office where a large amount of blood was taken and he is scheduled for multiple tests tomorrow. Patient's history does show alcohol use/abuse. As patient does have ongoing follow-up with test scheduled for tomorrow no further action was needed on this presentation at this time Piedad Ribeiro APRN.MIKA History and Record Review External record(s) reviewed: prior outpatient record and prior labs/imaging. Systemic symptoms present included: Tachycardia Disposition The patient was discharged. Transfer to ED was considered. Reason for not transferring: Patient has close follow-up scheduled as outpatient Procedures documented in this encounter [facility] 12-02-2024 Radiology Diagnostic study note [facility] Imaging Services [address] [place] [id number] Chest, Abd, Pel w/Contrast MR#: [id number] Acct: [id number] Name: JOSE PARKER Rep #: [id number] : 1980 M 43 From: Onur Thomason MD PCP: RAJESH Redd Status: REG ER Study:CT Chest, Abd, Pel w/Contrast Date of E xam: 12/02/24 Exam# [id number] Ordering Dr: Kt Nieves MD PROCEDURE: CT CHEST, ABD, PEL W/CONTRAST 12/02/2024 REASON FOR EXAM: ASCITES ?? TECHNIQUE: Chest, abdomen and pelvis CT with intravenous contrast. Coronal and Sagittal reconstruction series were provided. One or more dose reduction techniques were used (e.g., Automated exposure control, adjustment of the mA and/or kV according to patient size, use of iterative reconstruction technique. CONTRAST: Isovue 370 VOLUME: 98mL RADIATION DOSE SUMMARY: CTDlvol: 9+ 12+ 7 mGy DLP: 939 mGycm COMPARISON: None. FINDINGS: CT CHEST: The peripheral soft tissues are unremarkable. Degenerative changes of the spine. The thyroid is unremarkable. Normal caliber esophagus. No mediastinal lymphadenopathy. The heart is normal in size. Right lower lobe density with attenuation similar to paraspinal musculature withair bronchograms in a pattern favoring pneumonia CT ABDOMEN/PELVIS: The liver is enlarged, heterogeneously hypodense, with an irregular surface contour consistent with chronic liver disease. There is a focal ill-defined region adjacent to the gallbladder fossa measuring 5.2 ? 3.5 cm, which protrudes slightly outward; a mass cannot be excluded. The parenchyma is heterogeneous with centrally located hyperdensity and linear striations, likely reflecting altered hepatic architecture. There is recanalization of the umbilical vein and tortuous upper abdominal vessels suspicious for varices. Moderate ascites is present. The gallbladder, pancreas, spleen, adrenals, and kidneys are unremarkable, with symmetric renal enhancement and no hydronephrosis. The urinary bladder and prostate are normal. The bowel is normalin caliber. The peripheral soft tissues are unremarkable. Degenerative changes are noted in the spine. CT/CT Chest, Abd, Pel w/Contrast IMPRESSION: *Findings consistent with cirrhosis and portal hypertension, evidenced by irregular hepatic contour, recanalized umbilical vein, varices, and moderate ascites. *Ill-defined 5.2 ? 3.5 cm region adjacent to the gallbladder fossa-hepatocellular carcinoma or other neoplastic process cannot be excluded. Recommend multiphase contrast-enhanced CT or MRI for further characterization. *No additional acute abnormalities. Reading Location: [id number] CC: RAJESH Patrick; Dr. Taj Nieves MD ~ Radar Operator: Signed [facility] 09-04-2024 Evaluation note Diagnosis Onset Date Resolution Physical exam, pre-employment acute September 04, 2024 7 :46am [facility] Work Phone: 1(171) 884-849205-22-2025 Evaluation note* Diagnosis Onset Date Resolution Status Admit Date Physical exam, pre-employment acute September 04, 2024 7:46am Abdominal ascites acute December 04, 2024 10:00am Abdominal pain acute November 10:00am Abnormal findings on diagnostic imaging of abdomen acute [facility] 2024 10:00am Elevated liver enzymes acute [facility] 2024 10:00am [facility] Work Phone: 1(495) 322-499705-22-2025 Evaluation note* Diagnosis Onset Date Resolution Status Admit Date Physical exam, pre-employment acute September 04, 2024 7:46am Abnormal findings on diagnostic imaging of abdomen acute [facility] 2024 10:00am Acute alcoholic hepatitis acute December 04, 2024 10:00am Abdominal ascites inactive December 04, 2024 10:00am Abdominal pain inactive November 10:00am Elevated liver enzymes inactive [facility] 2024 10:00am [facility] Work Phone: 1(196) 802-853906-24-2024 Telephone encounter Note* Telephone Encounter - Noemi Russell MD - 10/08/2023 11:56 AM EDT Called patient to offer MAP vs hepatology appt. No answer, left voicemail asking for callback. [facility]06-24-2024 Miscellaneous Notes* Telephone Encounter - Noemi Russell MD - 10/08/2023 11:56 AM EDT Called patient to offer MAP vs hepatology appt. No answer, left voicemail asking for callback. documented [facility] Miscellaneous Notes* Telephone Encounter - Jorge Prasad RN - 10/03/2022 9:27 AM EDT Patient returned call and given provider's message below. Patient states he did see GI in Nov, and they could not figure out the cause of nausea he's had for months, but did learn it was not his liver. Reports they think it may be gallbladder related. Patient scheduled f/u with pcp. Patient reportshis appt with pcp was cancelled d/t pcp unavailable and was rescheduled. Noted and informed patientappt was not rescheduled. Re-scheduled per patient request. Patient sounded very agitated his Rx was not refilled and states nevermind I'll just wait for my appt. * Telephone Encounter - Ramona Infante LPN - 10/03/2022 8:17 AM EDT Left message for pt to contact office. Ramona Infante LPN * Telephone Encounter - Rell Arenas MD - 10/02/2022 9:55 PM EDT Advise patient he should be contacting his cuff setter for his persistent nausea. * Telephone Encounter - Skylar Mejia Ma - 10/02/2022 3:36 PM EDT Last office visit: 01/02/22 F/u scheduled: 10/23/22 Skylar Mejia Ma * Telephone Encounter - Edel Matta - 10/02/2022 1:49 PM EDT Patient has been identified by name and date of : Yes Requested Prescriptions No prescriptions requested or ordered in this encounter RX INSTRUCTIONS: Patient aware RX will be sent to pharmacy. No need to notify patient. Edel Matta documented in [facility] Miscellaneous Notes* Telephone Encounter - Talia Tao LPN - 03/17/2022 10:04 AM EST Patient phones requesting refills as follows: Requested Prescriptions Pending Prescriptions Disp Refills promethazine (PHENERGAN) 12.5 mg tablet 30 tablet 1 Sig: Take 1-2 tablets by mouth every 6 hours as needed for nausea/vomiting. LAMAR-01/02/22 Labs-02/14/22 NOV-none med filled Please review and advise. Talia Tao LPN documented in this encounter[facility] Miscellaneous Notes* Telephone Encounter - TOSHIA Robbins - 02/27/2022 11:46 AM EST SW attempted to reach the patient to discuss treatment options available. At previous appointment patient wanted to think about his options and discuss with his girlfriend. Patient's mailbox was fulland SW unable to leave a . SW to reach out via wikifolio. TOSHIA Robbins February 27, 2022 11:47 AM documented in this encounterSt[facility] Instructions* Patient Instructions* Noemi Russell MD - 02/14/2022 3:36 PM EDT We would like you to start the following medications: - thiamine 100 mg per day - folic acid 1 mg per day - naltrexone 50 mg once per day - recommend taking it after you wake up and are getting ready for work; this medication helps with cravings for alcohol - let us know when you're ready to start takingthis medication We recommend IOP - please let us know your thoughts on this and we can arrange an intake. documented in this encounterSt[facility] History of Present illness Narrative* Klever Stark MD - 02/14/2022 2:08 PM EDT MULTIDISCIPLINARY ALCOHOL PROGRAM NEW EVALUATION PATIENT NAME: Jose Parker DATE: February 14, 2022 PATIENT INTERVIEWED: in person. Presented with . ID: Jose is a 41 year old male who is seen today for their alcohol related liver disease. Presently, they live in [place], [place] with family. HISTORY OF PRESENTING ILLNESS: Jose reports that he last drank this weekend. Has reduced his alcohol use by 50%. Was drinking 3-4 days a week. 4-8 drinks. Whisky. Now drinking 3-4 days a week. 2-4 drinks. Whisky. Not engaged in formalized or informalized addiction treatment. No history of MAT. Denies withdrawals. Although reports that she sees him having morning shakes. Mood is good. says she has not noticed any change in mood. Denies anxiety. Denies suicidal ideations. Denies homicidal ideations. Denies psychotic symptoms. Jose reports significant family history of alcohol-specific addiction. Jose admits his alcohol use in the past was crazy. History of DUI, 20+ years ago. Jose drinks to relax. Post-job. No negative consequences. reports that kids like to drink. That's when he begins to drink harder. Kids are aware of his liver issues. STRESSORS: Work stressors. 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 Cheri: Denies any history of hypomanic or manic episodes. Psychosis: Denies any auditory / visual hallucination or paranoid ideation. ANNA: Denies any symptoms of ANNA Panic: Denies any symptoms of panic OCD: Denies any symptoms of OCD. PTSD: Denies any PTSD symptoms. MEDICATIONS: No current facility-administered medications for this visit. ALLERGIES: ALLERGIES No Known Allergies SOCIAL HISTORY: Reviewed ALCOHOL: Any alcohol use?: reports DSM-5 Alcohol Use Disorder criteria Examples from patient history Larger amounts or over a longer period than intended Denies Persistent desire or unsuccessful efforts to cut down / control use Denies Great deal of time obtaining, using, recovering Denies Cravings, strong desires / urges Yes Failure to fulfill major role obligations at work, school, or home 2/2 recurrent use Denies Continued use despite persistent or recurrent physical or psychological problems Denies Continued use despite persistent or recurrent social or interpersonal problems Denies Social, occupational, or recreational activities are given up / reduced Denies Recurrent and physically hazardous use Yes history of driving under the influence, hx of REINA Tolerance (need more to get same effect, or same amount is less effective) Yes Withdrawal symptoms Yes Mild: 2-3 symptoms Moderate: 4-5 symptoms Severe: 6+ symptoms Other alcohol history AGE OF FIRST USE: 14 years-old TYPICAL USE PATTERN: 3-4 days a week DATE OF LAST USE: last weekend LONGEST ABSTINENCE: Denies any history of abstinence LEGAL: History of DUI when he was 18 Past BETTY treatment TYPES OF TX: none TX RESPONSE: no history of treatment TX KNOWLEDGE / PREFERENCE: no knowledge Does patient acknowledge they have a use disorder?: denies If yes, does patient desire sobriety?: no TOBACCO USE: Never smoked cigarettes ILLICIT SUBSTANCE USE: Amphetamines: No history of use or dependence Barbiturates/benzodiazepines: No history of use or dependence Cocaine: No history of use or dependence Opioids: No history of use or dependence Ecstasy/GHB/ketamine: No history of use or dependence Marijuana: No history of use or dependence Hallucinogens: No history of use or dependence Inhalants (liquids, aerosols, gases, nitrates): No history of use or dependence IV drug misuse: No history of use or dependence Steroid misuse: No history of use or dependence FAMILY MEDICAL HISTORY: Reviewed and unchanged. FAMILY PSYCHIATRIC HISTORY: No known psychiatric illness MEDICAL ROS: Reviewed. COLLATERAL?: Obtained by team. OBJECTIVE: There were no vitals filed for this visit. MELD-Na score: 6 at 01/17/2022 12:28 PM MELD score: 6 at 01/17/2022 12:28 PM Calculated from: Serum Creatinine: 0.61 mg/dL (Using min of 1 mg/dL) at 01/17/2022 12:28 PM Serum Sodium: 141 mmol/L (Using max of 137 mmol/L) at 01/17/2022 12:28 PM Total Bilirubin: 0.5 mg/dL (Using min of 1 mg/dL) at 01/17/2022 12:28 PM INR(ratio): 1.0 at 01/17/2022 12:28 PM Age: 41 years WBC (k/uL) Date Value 01/17/2022 13.56 Hematocrit (%) Date Value 01/17/2022 44.0 Platelet Count (k/uL) Date Value 01/17/2022 259 Sodium (mmol/L) Date Value 01/17/2022 141 Potassium (mmol/L) Date Value 01/17/2022 4.1 BUN (mg/dL) Date Value 01/17/2022 7 AST (U/L) Date Value 01/17/2022 126 ALT (U/L) Date Value 01/17/2022 54 TSH (mIU/L) Date Value 01/02/2022 2.700 Component Latest Ref Rng & Units 02/14/2022 PEth 16:0/18:1 (POPEth) ng/mL 878 PEth 16:0/18.2 (PLPEth) ng/mL 717 Component Latest Ref Rng & Units 02/14/2022 Ethyl Glucuronide Ur Scr Cutoff 500 ng/mL Negative Fibroscan: Reviewed EKG: Reviewed PATIENT ENTERED QUESTIONNAIRES: ANAN-7 02/12/2022 Score 5 (Mild Anxiety Disorder) (0-4) minimal anxiety, (5-9) mild anxiety, (10-14) moderate anxiety, (15-21) severe anxiety PHQ-9 02/12/2022 PHQ-2 Score 0 PHQ-9 Score 3 (None-Minimal Depression) (0-4) minimal depression, (5-9) mild depression, (10-14) moderate depression, (15-19) moderately severe depression, (20-27) severe depression PROMIS Global Health 01/08/2022 01/01/2022 Physical T-Score 42.3 (Good) 39.8 (Fair) Mental T-Score 43.5 (Good) 48.3 (Very Good) BAM-R 02/12/2022 Use Score 37 Risk Score 38 Protective Score 127 PDMP: All prescriptions have been APPROPRIATELY filled. No suspicious activity was identified. PHYSICAL EXAMINATION: Muscle Tone/Strength: No rigidity, tremor, hyperreflexia, or clonus noted. Moved extremities against gravity. Gait / Station : Normal MENTAL STATUS: Appearance: He is Neatly dressed, grooming and hygiene were appropriate. Alertness: Alert Orientation: Person, Place, Time and Situation Speech: Within normal limits with regard to rate, tone and volume. Demeanor: Appropriate, Relaxed Eye Contact: Good Thought-Cognitive: The patient denied a history of delusions or hallucinations; there is no evidence of formal thought disorder. Thought Processing: Goal directed Abstract Reasoning: Abstract reasoning was good Thought Content: The patient displays thought content appropriate to the interview. Mood: Euthymic. Affect: Full range. Suicidal or Homicidal Ideation: None expressed or evidenced Intelligence: Average Judgment: Appropriate Insight: Appropriate IMPRESSION: Jose is drinking alcohol. Denies it as problematic. concurs. We discussed our concerns. Patient will consider. Currently declined addiction treatment. FU in one month. DIAGNOSIS: Rule out alcohol use disorder History of insomnia TREATMENT PLAN: - Recommended Trexan and IOP. Patient will consider. - Labs and PDMP reviewed - Follow-up: 1 months I spent a total of 55 minutes on the date of the service which included preparing to see the patient, [id number] patient care, completing clinical documentation, obtaining and/or reviewing separately obtained history, performing a medically appropriate examination, counseling and educating the pat ient/family/caregiver, ordering medications, tests, or procedures, communicating with other HCPs (not separately reported), independently interpreting results (not separately reported), communicatingresults to the patient/family/caregiver, and care coordination (not separately reported). KLEVER STARK MD ADDICTION PSYCHIATRIST documented in this encounterSt. [facility] [place] [facility] History of Present illness Narrative* Noemi Russell MD - 02/14/2022 1:34 PM EDT [facility] - NEW PATIENT Chief Complaint: alcohol related liver disease HPI: Jose Parker is a 41 year old male who presents for initial evaluation in [facility]. Has cut back on alcohol to 2-3 times per week, 2-3 shots per night. Asking about results of his lab work that was done and still pending during our last virtual visit. Has been here for several hours already today for ultrasound and fibroscan, is a bit frustrated butpleasant. Girlfriend is here with him. Happy grandfather of 2 newborns, does endorse some stress related to this. Previous Liver work-up Endoscopies/Procedures: EGD: none Colonoscopy: none Paracentesis: none Relevant Imaging: US: 02/14/2022 IMPRESSION: BIDIRECTIONAL PRIMARILY ANTEGRADE FLOW IN THE LEFT PORTAL VEIN, OTHERWISE PATENT HEPATIC VASCULATURE WITH APPROPRIATELY DIRECTED FLOW. RECANALIZED UMBILICAL VEIN ALSO PRESENT. HEPATIC STEATOSIS. CT: 01/04/2022 IMPRESSION: 1. Hepatic steatosis with geographic regions of focal fatty sparing and with mildly nodular hepatic contour suggesting cirrhosis. 2. Recanalization of the paraumbilical vein most compatible with portal hypertension. Small volume of abdominopelvic ascites. MRI: none Staging: Liver Bx: none Fibroscan: CAP 329, kPa 74.3 Metabolic Syndrome Risk factors: 0/5 1) Diabetes/ Abnormal FBS >100mg/dL: No 2) Hypertension : No 3)Triglycerides more then 150 : No 4) HDL (<50 female and <40 male): No 5) Central obesity ( Waist >102 men and >88 female): No Viral Hepatitis Status: Lab Results Component Value Date HEPBCOTOL Negative 01/17/2022 Lab Results Component Value Date HEPSABQ Negative 01/17/2022 No components found for: AHBCM Lab Results Component Value Date HBSAG Negative 01/17/2022 No results found for: HEPAIGM No results found for: HEPATO Lab Results Component Value Date HEPCABEIA Negative 05/30/2013 Review of Systems: CONSTITUTIONAL: No fevers, chills, nightsweats, unintended weight loss HEENT: Denies frequent or severe heaches, nasal congestion/sinus symptoms, problematic allergy problems. EYES: No diplopia or blurry vision; no scleral icterus CARDIOVASCULAR: No chest pain, dyspnea, palpitations, orthopnea, PND, ankle edema. PULM: No dyspnea, unexplained cough. GI: No dysphagia/odynophagia, problematic reflux, constipation, diarrhea, changes in stool habits, hematochezia, melena. : No new urinary complaints, including dysuria, gross hematuria or pyuria. NEURO: No new balance problems, peripheral weakness/paresthesias or numbness of concern; no confusion or altered mental status MUSC-SKEL: No new joint pain, swelling, or erythema. PSY: No concerns regarding depression, anxiety or panic. 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 Esophageal reflux 03/26/2007 Tobacco use disorder Family History: FAMILY HISTORY Problem Relation Age of Onset other (knee arthritis [Other]) Mother GI Mother diverticulitis Coronary Artery Disease Father 42 Arthritis Father other (sleep apnea [Other]) Father Coronary Artery Disease Brother 42 coronary stent other (inguinal hernia [Other]) Brother Coronary Artery Disease Maternal Grandfather 60 Cancer Paternal Grandmother 65 cancer unsure type-possibly colon Social History: Patient Risk Factors for Liver disease include: ETOH use: Yes, see psych and social work notes for details IVD use: No Intra Nasal Cocaine: No Tattoos/Piercings: Yes High risk sexual behavior: No H/o Transfusions prior to 1989: No Other hepatotoxic medication intake: No Herbal Intake: No PATIENT ENTERED QUESTIONNAIRES: ANNA-7 02/12/2022 Score 5 (Mild Anxiety Disorder) (0-4) minimal anxiety, (5-9) mild anxiety, (10-14) moderate anxiety, (15-21) severe anxiety PHQ-9 02/12/2022 PHQ-2 Score 0 PHQ-9 Score 3 (None-Minimal Depression) (0-4) minimal depression, (5-9) mild depression, (10-14) moderate depression, (15-19) moderately severe depression, (20-27) severe depression PROMIS Global Health 01/08/2022 01/01/2022 Physical T-Score 42.3 (Good) 39.8 (Fair) Mental T-Score 43.5 (Good) 48.3 (Very Good) BAM-R 02/12/2022 Use Score 37 Risk Score 38 Protective Score 127 I have confirmed and edited as necessary, the PFSH and ROS obtained by others. Current Outpatient Medications on File Prior to Visit Medication Sig promethazine (PHENERGAN) 12.5 mg tablet Take 1-2 tablets by mouth every 6 hours as needed for nausea/vomiting. acetaminophen (TYLENOL) 325 mg tablet Take 650 mg by mouth every 6 hours as needed. No current facility-administered medications on file prior to visit. Vitals: BP 122/78 Pulse 108 Ht 5' 9 (1.75m) Wt 172 lb 3.2 oz (78.1kg) SpO2 100% BMI 25.42 kg/(m^2). Physical Exam: GENERAL: no apparent distress, pleasant HENT: no lymphadenopathy EYES: no scleral icterus LUNGS: clear to auscultation bilaterally CARDIAC: regular rate and rhythm, normal S1, S2, no murmurs ABDOMEN: no ascites, no hepatosplenomegaly, no tenderness, rebound, or guarding EXTREMITIES: no edema. NEURO: AOx3. No asterixis SKIN: no jaundice Karnofsky scale - 90 - Able to carry on normal activity: minor signs or symptoms of disease. Laboratory: CBC Hemoglobin (g/dL) Date Value 01/17/2022 14.9 Hematocrit (%) Date Value 01/17/2022 44.0 WBC (k/uL) Date Value 01/17/2022 13.56 Platelet Count (k/uL) Date Value 01/17/2022 259 CMP Glucose 76 01/17/2022 BUN 7 01/17/2022 Creatinine 0.61 01/17/2022 Sodium 141 01/17/2022 Potassium 4.1 01/17/2022 Chloride 106 01/17/2022 CO2 23 01/17/2022 Protein, Total 6.6 01/17/2022 Albumin 3.6 01/17/2022 Calcium, Total 8.7 01/17/2022 Alkaline Phosphatase 222 01/17/2022 Bilirubin, Total 0.5 01/17/2022 AST 126 01/17/2022 ALT 54 01/17/2022 PT/INR AFP Lab Results Component Value Date AFP 5.3 01/17/2022 IMAGING STUDIES: Reviewed in HPI Impression/Recommendations Assessment and Plan: In conclusion, Jose Parker is a 41 year old male wit PMH migraine headaches, tobacco use disorder, and concern for alcohol use disorder who presents for initial evaluation in [facility]. 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 clinical relevance - remainder of serologic work-up unrevealing for other causes of liver disease - degree of fibrosis unclear at this time - fibroscan indicating elevated liver stiffness while US showing steatosis but no clear cut features of cirrhosis and only a small change related to portal HTN - could all be reversible injury due to alcohol, but outside performing a liver biopsy, will need alcohol cessation, time, and monitoring - MELD-Na 6 from 01/17/2022 (if he is cirrhotic) AUD treatment plan - need further assessment but concern for alcohol use disorder - recommend IOP --> patient will think about it and let us know - naltrexone 50 mg PO every day for cravings --> patient will think about it and let us know - monthly urine ethyl gluc and Peth Nutritional deficiencies - folate, thiamine, zinc, selenium, vitamin D, and vitamin E deficiencies have been reported in patients with alcohol-associated liver disease - check zinc, vitamin D, vitamin B12 levels and supplement as appropriate - add thiamine and folic acid - recommend a weight-based daily caloric intake of at least 35 kcal/kg/day for BMI < 30 in absence of protein calorie malnutrition - recommend protein intake 1.2-1.5 gm/kg/day - Liver Frailty Index 3.48 = Pre-frail; no referral to PT at this time Health Maintenance: - Screening Colonoscopy: not yet indicated - Hepatitis Vaccination status: dose 1/3 of twinrix today - Bone density: vitamin D to be checked with today's labs RV in 4-6 weeks in [facility]. Noemi Russell MD Staff, Gastroenterology/Hepatology [facility] [place] documented in this encounterSt. [facility] [place] [facility] History of Present illness Narrative* Adriana [place], BOW MAKING MACHINE OPERATOR - 02/14/2022 1:00 PM EDT Multidisciplinary Alcohol Program Social Work New Diagnostic Evaluation Patient was seen for an initial evaluation. All information is from Patient report except when noted. This evaluation is NOT intended for forensic, disability or child custody purposes. Informed consent was discussed and signed by the patient. Visit Type:In person PRESENT: Self Referral Source: Dr. Lui Russell and Dr. Riddhi Stark Chief Complaint: Alcohol-associated liver dysfunction History of Presenting Illness: I reviewed the history of presenting illness and agree with Dr. Stark's history documented on February 14, 2022. Sobriety Date:02/12/2022 [place] Help activities:No Current Medications: Current Outpatient Medications Medication Sig acetaminophen (TYLENOL) 325 mg tablet Take 650 mg by mouth every 6 hours as needed. promethazine (PHENERGAN) 12.5 mg tablet Take 1-2 tablets by mouth every 6 hours as needed for nausea/vomiting. No current facility-administered medications for this visit. 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 Stark's history documented on February 14, 2022 SUICIDE RISK ASSESSMENT: Suicide Attempt(s): Patient denies previous suicide attempts. Risk Factors: None Protective Factors: Effective and accessible clinical care, Strong support system FAMILY PSYCHIATRIC HISTORY: Mother-Substance Abuse and Brother-Substance Abuse (Both would drink years ago but both have really slowed down) -Present in home during childhood: Mother, Father, and 2 brother(s). Patient is the middle child. Patient maintains a good relationship. -Mother: We get along great. My mom was a drinker when I was younger but now that she is older shedoesn't drink as much. -Father: when the patient was 17 years old from a massive heart attack. -General description of childhood: Good- I don't have any complaints. 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 Current supports: Gissell (girlfriend), Mom, friends Current legal issues: No Past legal issues: Yes: DUI when 18 year old Marital Status: , In partnered relationship Children: Yes, (2) adult children (23 and 21) - maintains Excellent relationship. Patient has 3 grandchildren. 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 Hobbies: Golf, get together's with family/friends, bowling Episcopal: Islam (does not actively go to amish) Mental Status Exam: Mental Status Exam: General/Sensorium: Alert and & interactive - Appearance: Appears well groomed and stated age - Eye Contact: Appropriate eye contact - Demeanor: Appropriately interactive - Motor Activity: Normal - Speech: Appropriate - Mood: Denies mood concerns - Affect: Congruent with mood - Thought Process: Linear, logical, and goal-directed - Associations: Normal - Thought Content: Appropriate with no SI/HI/AVH - Perceptions: The patient does not appear internally stimulated - Cognition: Appears intact in regards to memory, attention/concentration, fund of knowledge and language skills - Insight: Good - Judgment: Good - PATIENT ENTERED QUESTIONNAIRES: ANNA-7 02/12/2022 Score 5 (Mild Anxiety Disorder) (0-4) minimal anxiety, (5-9) mild anxiety, (10-14) moderate anxiety, (15-21) severe anxiety PHQ-9 02/12/2022 PHQ-2 Score 0 PHQ-9 Score 3 (None-Minimal Depression) (0-4) minimal depression, (5-9) mild depression, (10-14) moderate depression, (15-19) moderately severe depression, (20-27) severe depression PROMIS Global Health 01/08/2022 01/01/2022 Physical T-Score 42.3 (Good) 39.8 (Fair) Mental T-Score 43.5 (Good) 48.3 (Very Good) BAM-R 02/12/2022 Use Score 37 Risk Score 38 Protective Score 127 SUMMARY IMPRESSION: Patient is a 41 year old male being seen today due to issues with alcohol. Patient reported he has not had a drink in 48 hours. Patient reported he works 2nd shift and will frequently come home at night and have 4-6 drinks nightly. Patient reported after talking to Dr. Damonrecently he will now have 2-3 drinks, 2-3 nights a week. Patient stated he does need to drink, he usually just does it when he is unwinding at the end of an evening. Patient reported when he was 15 to mid 20's he would abuse alcohol. Drinking to excess daily. Patient stated as he got older he started drinking less due to having to care for his children and get a job. He did have a DUI when he was 18 shortly after his Dad . Denied any legal issues since then. Patient initially denied alcohol having an impact on his relationship however did state when he [id number] he lost his job due to a company byout and went on a binge for about a month. His mom encouraged him to slow down on his drinking. 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 He denied that drinking has had an impact on any additional relationships. Patient identified his family as a motivator to cut back on his drinking. Patient has 2 children and 3 grandchildren. Patient reported his girlfriend, Gissell, is also a big support to him. Discussed the different levels of care with the patient. Patient has never participated in any formalized treatment. Patient reported he would like to think about his options and discuss them with his girlfriend. Open to SW reaching out to him in a couple of weeks to check in and offer additional re sources. DIAGNOSIS: Alcohol Use Disorder, Rule out alcohol use disorder GOALS/OBJECTIVES/INTERVENTIONS: To abstain from drugs and alcohol. SW to follow up in several weeks to check in and offer additional resources. SIGNATURE: TOSHIA Robbins PATIENT NAME: Jose Parker DATE: February 14, 2022 TIME: 1:00 PM documented in this encounterSt. [facility] [facility] History of Present illness Narrative* Katherin Jimenez APRN.FURNITURE MOVER HELPER - 02/14/2022 10:25 AM EDT Patient fasting for 3 hours:Yes Any implanted devices:No Possibility of :No/ N/A Fibroscan was performed on February 14, 2022, by Marian Layton RN and results are interpreted by Katherin Jimenez CNP Diagnosis: Alcoholic liver disease/Hepatomegaly Please refer to get images report for individual readings Number of readings: 10 IQR: 4% E (kpa): 74.3 CAP: 329 Impression The reading was adequate, and corresponds to Fibrosis stage F4 and steatosis grade of S3. Katherin Jimenez CNP Grade CAP value up to 237 dB/M corresponds to S0 (< 10 % Fat) CAP value between (238 - 258 dB/M) corresponds to S1 (>/= 11 % Fat) CAP value between (259 - 289 dB/M) corresponds to S2 (>/= 33 % Fat) CAP value > 290dB/M corresponds to S3 (>/= 67 % Fat) stage 0 ( S0:< 10 % steatosis) stage 1 (>/= S1: 11%-33% steatosis) stage 2 (>/= S2: 34%-66% steatosis) stage 3 (>/= S3: > 66% steatosis) Int J Clin Exp Med. 2015; 8(10): 03085-36922. documented in this encounterSt. [facility] History of Present illness Narrative* RT Holland(Linnea) - 02/14/2022 9:15 AM EDT Radiology Service Progress Note PATIENT NAME: Jose Parker DATE OF SERVICE: February 14, 2022 TIME: 10:04 AM PATIENT IDENTITY VERIFICATION COMPLETED USING TWO (2) IDENTIFIERS: Name and Date of confirmedby patient verbally. FALL SCREENING: Has the patient had 2 falls in the last year or 1 fall with injury or currently using an Ambulatory Assistive Device (Walker, Cane, Wheelchair, Crutches, etc.)? No PATIENT GENDER DATA: Male PATIENT RELEVANT IMPLANT DATA REVIEWED: Not Applicable RADIOLOGY DEPARTMENT: Ultrasound PERIPHERAL IV DATA: Not applicable SIGNED BY: Cathy Thomas RDMS RVT February 14, 2022 10:04 AM documented in this encounterSt. Mary'[facility] [facility]10[facility] Miscellaneous Notes* Telephone Encounter - TOSHIA Robbins - 02/13/2022 9:46 AM EDT Informed Consent documented in this encounterSt. Mary'[facility] [facility]10[facility] History of Present illness Narrative* Noemi Russell MD - 01/19/2022 11:01 AM EDT VIRTUAL VISIT FOLLOW UP I had a virtual visit with Mr. Parker today for follow up of potential liver disease. 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 Esophageal reflux 03/26/2007 Tobacco use disorder PAST SURGICAL HISTORY Procedure Laterality Date NONE SHOULDER RIGHT OUT PT SURGERY 04/05/2021 FAMILY HISTORY Problem Relation Age of Onset other (knee arthritis [Other]) Mother GI Mother diverticulitis Coronary Artery Disease Father 42 Arthritis Father other (sleep apnea [Other]) Father Coronary Artery Disease Brother 42 coronary stent other (inguinal hernia [Other]) Brother Coronary Artery Disease Maternal Grandfather 60 Cancer Paternal Grandmother 65 cancer unsure type-possibly colon Social History Tobacco Use Smoking status: Some Days Packs/day: 0.50 Years: 15.00 Pack years: 7.50 Types: Cigarettes Smokeless tobacco: Never Tobacco comments: 5 cigs a day Substance Use Topics Alcohol use: Yes Alcohol/week: 24.0 standard drinks Types: 24 Cans of Beer (12oz) per week Comment: Daily, after work Drug use: No Comment: remote marijuana Patient Risk Factors for Liver disease include: ETOH use: How many times in the past year have you had 4 (women) or 5 (men)+ drinks in one day? Yes, 3-5 drinks at least 4 times per week AUDIT-C - 7 How often did you have a drink containing alcohol in the past year? 4 Never - 0 Monthly or less - 1 Two to four times per month - 2 Two to three times per week - 3 Four or more times per week - 4 How many drinks containing alcohol did you have on a typical day when you were drinking in the pastyear? 2 1-2 drinks - 0 3-4 - 1 5-6 - 2 7-9 - 3 10+ - 4 How often did you have six or more drinks on one occasion in the past year? 1 Never - 0 Less than monthly - 1 Monthly - 2 Weekly - 3 Daily or almost daily - 4 Score < 3 = normal alcohol consumption >= 3 for women or >=4 for men considered alcohol misuse Current Outpatient Medications Medication Sig Dispense Refill promethazine (PHENERGAN) 12.5 mg tablet Take 1-2 tablets by mouth every 6 hours as needed for nausea/vomiting. 30 tablet 1 No current facility-administered medications for this visit. ALLERGIES No Known Allergies REVIEW OF SYSTEMS: PAIN ASSESSMENT: Negative for pain, history of chronic pain, or current treatment for a chronic pain condition. GENERAL: No weight loss, malaise or fevers RESPIRATORY: Negative for cough, hemoptysis, wheezing, COPD, dyspnea or shortness of breath CARDIOVASCULAR: Negative for chest pain, leg swelling, hypertension, CHF or palpitations GI: No nausea, vomiting, or diarrhea : No history of dysuria, frequency or incontinence CASHIER CREDIT: Negative for abnormal vaginal bleeding, abnormal vaginal discharge PHYSICAL FINDINGS OF NOTE: General - Normal, healthy, cooperative, in no acute distress Able to interact verbally by video conference Psych - ORIENTATION: normal to time place, person and situation Mood/Affect: AFFECT AND MOOD: Normal Head/Neuro - Normal size and shape Facial appearance normal Pulmonary - respiratory effort normal Cardiovascular - patient describes extremities normal, warm, no cyanosis,no clubbing, and no edema Abdominal - Not performed Skin - abnormal lesions not visualized Motor - patient seen sitting with Normal appearing strength and coordination Anorectal exam - Not Performed REVIEWED ITEMS CT liver reviewed IMPRESSION 41 yo male with concern for alcohol related liver disease who is referred for evaluation of liver disease. RECOMMENDATION: Would benefit from and amenable to MDP evaluation in MAP clinic. Will help arrange for February. Serologic work-up sent, still pending. Will cancel MRI and arrange for LVUS and fibroscan at time of MAP evaluation. I spent more than 30 minutes [id number] with the patient and over half the time was devoted to counseling and/or coordination of care. Noemi Russell MD documented in this encounterSt[facility] [facility] Miscellaneous Notes* Telephone Encounter - Sarah Cheek - 01/18/2022 12:50 PM EDT Called Jose Parker to remind them of an appointment with Dr. Russell on 01/19/22. Spoke with patient. Appointment confirmed. documented in this encounterSt. Mary[facility] [facility] History of Present illness Narrative* Aleks Najera MD - 01/09/2022 11:30 AM EDT Images from the original note were not included. DEPARTMENT OF GASTROENTEROLOGY AND HEPATOLOGY [facility] OUTPATIENT VISIT DATE January 09, 2022 OUTPATIENT VISIT TYPE NEW Patient: Jose Parker Medical Record: [id number] Reason for Consultation: Opinion/Advice regarding abdominal pain at the request of Carmita Pugh APRN. My recommendations will be communicated by way of the shared medical record. Assessment IMPRESSION Jose Parker is a 41 year old male who presents GI clinic for concerns regarding abdominal pain. He has abnormal liver imaging concerning for cirrhosis and well as signs of portal hypertension. The presence of spider angiomata and palmar erythema on exam support this. He also has a chronic significant alcohol use history. Regarding his GI symptoms, my concern is that his unknown hepatic pathology may be contributing, and would recommend this be fully worked up and addressed prior to furtherneuroGI evaluation PLAN - Referral to hepatology for further care - Liver MRI - Anti-HAV, HBsAG, HBsAb, Anti-HCV, AFP, A1AT, HFE, CHERYL, AMA, ceruloplasmin, CBC, CMP, INR Plan is to follow up as needed (prn). Aleks Najera MD Associate Staff Division of Neurogastroenterology & Motility [facility] Diseases [facility] I spent a total of 45 minutes on the date of the service which included preparing to see the patient, [id number] patient care, completing clinical documentation, obtaining and/or reviewing separately obtained history, performing a medically appropriate examination, counseling and educating the pat ient/family/caregiver, ordering medications, tests, or procedures, communicating with other HCPs (not separately reported), independently interpreting results (not separately reported), communicatingresults to the patient/family/caregiver, and care coordination (not separately reported). HISTORY OF PRESENT ILLNESS: Jose Parker is a 41 year old male who is seen in consultation for abdominal pain. He recently saw PCP regarding these issues. CT imaging performed concerning cirrhosis with portal HTN. Interestingly, iron studies show elevated percent saturation and ferritin >2,000. Patient endorses significant alcohol use history. Will drink 4-5 shots nightly, states he has used alcohol since his early teenage years. Endorses abdominal bloating, dyspepsia. REVIEW OF SYSTEMS: Review of Systems Constitutional: Negative for chills and fever. HENT: Negative. Eyes: Negative. Respiratory: Negative for cough. Cardiovascular: Negative for chest pain. Gastrointestinal: Positive for abdominal pain, constipation, diarrhea, nausea and vomiting. Per HPI Endocrine: Negative. Genitourinary: Negative. Musculoskeletal: Negative. Skin: Negative. Allergic/Immunologic: Negative. Neurological: Negative. Hematological: Negative. Psychiatric/Behavioral: Negative. All other systems were reviewed and found to be negative. I have confirmed and edited as necessary,the PFSH and ROS obtained by others. 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 Esophageal reflux 03/26/2007 Tobacco use disorder Past Surgical History: PAST SURGICAL HISTORY Procedure Laterality Date NONE SHOULDER RIGHT OUT PT SURGERY 04/05/2021 Family History: FAMILY HISTORY Problem Relation Age of Onset other (knee arthritis [Other]) Mother GI Mother diverticulitis Coronary Artery Disease Father 42 Arthritis Father other (sleep apnea [Other]) Father Coronary Artery Disease Brother 42 coronary stent other (inguinal hernia [Other]) Brother Coronary Artery Disease Maternal Grandfather 60 Cancer Paternal Grandmother 65 cancer unsure type-possibly colon Social History: Social History Tobacco Use Smoking status: Some Days Packs/day: 0.50 Years: 15.00 Pack years: 7.50 Types: Cigarettes Smokeless tobacco: Never Tobacco comments: 5 cigs a day Substance Use Topics Alcohol use: Yes Alcohol/week: 24.0 standard drinks Types: 24 Cans of Beer (12oz) per week Comment: Daily, after work Drug use: No Comment: remote marijuana Allergies: ALLERGIES No Known Allergies Medications: Current Outpatient Medications Medication Sig Dispense Refill iv contrast (will be provided with radiology test) MRI Liver Inject, intravenously, once for 1 dose. No IV access, insert saline lock prior to the beginning of sedation, infusion, injection of imaging exam. Discontinue saline lock post exam. If Pt. has a central line or IVAD, may access for administration according to line specific nursing protocol. Once exam is complete flush line and de-access according to line specific nursing protocol in the MR contrast administration guidelines link. 1 Each 0 promethazine (PHENERGAN) 12.5 mg tablet Take 1-2 tablets by mouth every 6 hours as needed for nausea/vomiting. 30 tablet 1 No current facility-administered medications for this visit. PHYSICAL EXAM Vital Signs: BP 102/60 Pulse 96 Temp (Src) 97.6 (Temporal) Ht 5' 9 (1.75m) Wt 164 lb 12.8 oz (74.8kg) SpO2 98% BMI 24.33 kg/(m^2). Physical Exam Constitutional: Appearance: Normal appearance. HENT: Head: Normocephalic and atraumatic. Eyes: Pupils: Pupils are equal, round, and reactive to light. Cardiovascular: Rate and Rhythm: Normal rate and regular rhythm. Pulses: Normal pulses. Heart sounds: Normal heart sounds. Pulmonary: Effort: Pulmonary effort is normal. Breath sounds: Normal breath sounds. Abdominal: General: Abdomen is flat. Bowel sounds are normal. There is no distension. Palpations: Abdomen is soft. Tenderness: There is no abdominal tenderness. Musculoskeletal: General: Normal range of motion. Cervical back: Normal range of motion. Skin: General: Skin is warm and dry. Comments: Spider angiomata present on upper chest, palmar erythema present No jaundice Neurological: Mental Status: He is alert and oriented to person, place, and time. Comments: No asterixis Psychiatric: Mood and Affect: Mood normal. LABS: I have personally reviewed all pertinent labs on the date of the encounter. IMAGING: I have personally reviewed all pertinent imaging on the date of the encounter. CT ABD/PEL W IVCON 01/04/2022 IMPRESSION: 1. Hepatic steatosis with geographic regions of focal fatty sparing and with mildly nodular hepatic contour suggesting cirrhosis. 2. Recanalization of the paraumbilical vein most compatible with portal hypertension. Small volume of abdominopelvic ascites. PROCEDURES: I have personally reviewed all pertinent procedures on the date of the encounter. SIGNATURE: Aleks Najera MD PATIENT NAME: Jose Parker DATE OF 1980 documented in this encounterSt. [facility] [facility] Miscellaneous Notes* Telephone Encounter - Carmita Patrick APRN.MIKA - 01/06/2022 2:41 PM EDT Noted, thank you. Carmita Patrick APRN.MIKA * Telephone Encounter - Hiral Merino Ma - 01/06/2022 2:13 PM EDT FYI pt scheduled 01/09/22. Hiral Merino Ma * Telephone Encounter - Carla Fisher Ma - 01/06/2022 10:36 AM EDT Message given to [facility] to schedule amy. Carla Fisher Ma * Telephone Encounter - Carmita Patrick APRN.CNP - 01/06/2022 10:32 AM EDT I really need someone to call him and get this scheduled. Carmita Patrick APRN.CNP * Telephone Encounter - Carla Fisher Ma - 01/05/2022 8:03 AM EDT Pt informed, verbalized understanding. Please assist with scheduling w/ hepatology AMY. Carla Fisher Ma * Telephone Encounter - Carmita Patrick APRN.CNP - 01/05/2022 7:22 AM EDT Please let Jose know that the CT of his abdomen suggests cirrhosis of his liver. I would like him to see hepatology as soon as possible. Please assist him to schedule this appointment, within the next couple days. Carmita Patrick APRN.CNP documented in this encounterSt. [facility] [facility]09[facility] History of Present illness Narrative* Keisha Orlando Major, RT(R) - 01/04/2022 2:20 PM EDT Radiology Service Progress Note DATE OF SERVICE: January 04, 2022 TIME: 2:27 PM PATIENT IDENTITY VERIFICATION COMPLETED USING TWO (2) STANDARD IDENTIFIERS: Name and Date of confirmed by patient verbally. FALL SCREENING: Has the patient had 2 falls in the last year or 1 fall with injury or currently using an Ambulatory Assistive Device (Walker, Cane, Wheelchair, Crutches, etc.)? No PATIENT GENDER DATA: Male PATIENT RELEVANT IMPLANT DATA REVIEWED: Yes ALLERGIES: Reviewed and unchanged CONTRAST ALLERGY: NO. EXAM: CT -CONTRAST INDUCED NEPHROPATHY RISK FACTORS: Not applicable CREATININE: Creatinine Date Value Ref Range Status 01/02/2022 0.63 (L) 0.73 - 1.22 mg/dL Final Estimated Glomerular Filtration Rate Date Value Ref Range Status 01/02/2022 123 >=60 mL/min/1.73m Final Comment: Estimated Glomerular Filtration Rate (eGFR) is calculated using the 2020 CKD-EPI creatinine equation. This equation utilizes serum creatinine, sex, and age as parameters. The creatinine assay has traceable calibration to isotope dilution- mass spectrometry. Refer to KDIGO guidelines for clinical interpretation. In patients with unstable renal function, e.g. those with acute kidney injury, the eGFRmay not accurately reflect actual GFR. P.O.C.T. RESULTS: POC done: Yes, See Lab Tab January 04, 2022 TREATMENT: N/A PERIPHERAL IV DATA: Ambulatory: A peripheral IV was started in the Left antecubital site with a Angio cath: 22 gauge. RADIOLOGY DEPARTMENT: CT; Exam(s) Completed: Abdomen/Pelvis SIGNATURE: RT Eva(R) PATIENT NAME: Jose Parker DATE: January 04, 2022 TIME: 2:27 PM documented in this encounterSt. [facility] [facility] Miscellaneous Notes* Telephone Encounter - Carla Fisher Ma - 01/04/2022 12:19 PM EDT Pt scheduled for today Carla Fisher Ma * Telephone Encounter - Camrita Patrick APRN.CNP - 01/04/2022 9:[address] reordered. Please reschedule for today. Carmita Patrick APRN.CNP * Telephone Encounter - Carla Fisher Ma - 01/04/2022 9:32 AM EDT Spoke with schedulers and CT needs to be reordered. Carla Fisher Ma * Telephone Encounter - Carmita Patrick APRN.CNP - 01/04/2022 7:22 AM EDT He absolutely needs to have this CT stat. Please make sure it is done today. Carmita Patrick APRN.MIKA * Telephone Encounter - Sarah Moreno RN - 01/03/2022 10:51 AM EDT Patient's significant other Jennifer calls and reports that CT scan was not done due to it not beingcleared by patient's insurance yet. Jennifer asking what the next steps are. See message below Sarah Moreno RN * Telephone Encounter - Hilaria Ferraro LPN - 01/03/2022 10:44 AM EDT [facility]ia Rivera called and states pt was sent there to have a stat CT done yesterday 01-02-22. This had not been approved by pt's insurance and pt stated to her this was a new insurance for him he hashad it for less than a month. Natalia states before doing the test they needed pt to sign a waiver hewould be responsible for what insurance did not cover and pt did not want to sign and left without having the test done. Hilaria Ferraro LPN documented in this encounterSt. Mary[facility]09[facility] History of Present illness Narrative* Samantha Polo, RT(R) - 01/02/2022 3:40 PM EDT Radiology Service Progress Note PATIENT NAME: Jose Parker DATE OF SERVICE: January 02, 2022 TIME: 3:36 PM PATIENT IDENTITY VERIFICATION COMPLETED USING TWO (2) IDENTIFIERS: Name and Date of confirmedby patient verbally. FALL SCREENING: Has the patient had 2 falls in the last year or 1 fall with injury or currently using an Ambulatory Assistive Device (Walker, Cane, Wheelchair, Crutches, etc.)? No PATIENT GENDER DATA: Male PATIENT RELEVANT IMPLANT DATA REVIEWED: Not Applicable RADIOLOGY DEPARTMENT: General X-ray: Exam(s) Completed: Chest X-Ray PERIPHERAL IV DATA: Not applicable SIGNED BY: RT Chapito(R) January 02, 2022 3:36 PM documented in this encounterSt. Mary'[facility] [facility]09[facility] History of Present illness Narrative* Carmita Patrick, ANNETTE.FURNITURE MOVER HELPER - 01/02/2022 2:04 PM EDT Chief Complaint Patient presents with: Establish Care Abdominal Pain: X 2 months Nausea HPI Jose Parker is a 41 year old male who presents here today for Above Complaints.. Today: Had surgery on shoulder last March-didn't really have an appetite-attributed to anesthesia. In May had fullness in his stomach and felt like food was sitting on the top of his stomach. Could only eat a couple of bites. Now when he eats just a few bites, has severe bloating and pain. Feels like needs to have a bowel movement, but typically can't go. Every morning when gets out of bed vomits. Has lost about 50 pounds since the beginning of this year. Vomits about 45 minutes after every time he eats. Has tried gingerale-just makes gassy and burping. Prilosec, Alkaseltzer, TUMS. Is nauseated all the time. Is not a heartburn type of feeling. Unformed soft bowel movements to diarrhea. Not typically a lot because not eating enough to have a bowel movement. Occasional small bright red blood-likely r/t hemorrhoids. Past medical history, appointments, medications, allergies reviewed. 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 Esophageal reflux 03/26/2007 Tobacco use disorder Previous Surgical History PAST SURGICAL HISTORY Procedure Laterality Date NONE Family History FAMILY HISTORY Problem Relation Age of Onset other (knee arthritis [Other]) Mother GI Mother diverticulitis Coronary Artery Disease Father 42 Arthritis Father other (sleep apnea [Other]) Father Coronary Artery Disease Brother 42 coronary stent other (inguinal hernia [Other]) Brother Coronary Artery Disease Maternal Grandfather 60 Cancer Paternal Grandmother 65 cancer unsure type Patient Allergies ALLERGIES No Known Allergies Current Medications Current Outpatient Medications on File Prior to Visit Medication Sig naproxen (NAPROSYN) 500 mg tablet Take 1 tablet by mouth twice daily as needed (pain/inflammation, take with food.). (Patient not taking: Reported on 01/02/2022) cyclobenzaprine (FLEXERIL) 10 mg tablet Take 1 tablet by mouth three times daily as needed for muscle spasm. (Patient not taking: Reported on 01/02/2022) azithromycin (ZITHROMAX) 500 mg tablet Take 2 tablets by mouth once daily. (Patient not taking: No sig reported) meloxicam (MOBIC) 15 mg tablet Take 1 tablet by mouth once daily. for pain. Take with food. (Patient not taking: No sig reported) triamcinolone acetonide (KENALOG) 0.1 % cream Apply 1 application to affected area twice daily. (Patient not taking: Reported on 01/02/2022) No current facility-administered medications on file prior to visit. Social History Social History Tobacco Use Smoking status: Some Days Packs/day: 0.50 Years: 15.00 Pack years: 7.50 Types: Cigarettes Smokeless tobacco: Never Tobacco comments: 5 cigs a day Substance Use Topics Alcohol use: Yes Alcohol/week: 60.0 standard drinks Types: 24 Cans of Beer (12oz) per week Comment: occasional: At least 12 pack over the weekend and probably additional 12 pack through the week Drug use: No Comment: remote marijuana Review of Symptoms REVIEW OF SYSTEMS See HPI, otherwise negative EXAM: BP 118/76 (BP Site: Left Arm, BP Position: Sitting, BP Cuff Size: Regular Adult) Pulse 109 Ht 176.9 cm (5' 9.63) Wt 75.4 kg (166 lb 3.2 oz) SpO2 94% BMI 24.10 kg/m General Appearance: Thin. Ill-appearing, sallow in color, no acute distress. Skin: Sallow in color, texture, turgor normal, no suspicious rashes or lesions Head: Normocephalic, no masses, lesions, tenderness or abnormalities. Eyes: Anicteric sclera. Pupils are equally round and reactive to light. Extraocular movements are intact. . Ears: External ears normal, canals clear. Nose/Sinuses: Nares normal, septum midline, mucosa normal, no drainage or sinus tenderness. Oropharynx: Lips, mucosa, and tongue normal, teeth and gums normal, oropharynx normal. Neck: Supple, no adenopathy; thyroid symmetric, normal size, no bruits. Lungs: Lungs clear to auscultation. No wheezing, rhonchi, rales.. Heart: RRR without murmur, gallop, or rubs. No ectopy. Abdomen: Positive findings: tenderness marked and involuntary guarding epigastric, RUQ, and LUQ, hepatomegaly, liver edge palpable 10 below costal margin, liver edge palpable, irregular, hypoactive bowel sounds. Extremities: No deformities, edema, skin discoloration, clubbing or cyanosis. Good capillary refill. . Musculoskeletal: No joint swelling, deformity, or tenderness. Peripheral Pulses: Normal. Neurologic: Gait normal. Reflexes normal and symmetric. Sensation grossly intact.. Lymph Nodes: No cervical lymphadenopathy, No supraclavicular lymphadenopathy, and No axillary lymphadenopathy. Psychiatric: Health Maintenance List DEPRESSION SCREENING due on 01/28/2012 HEPATITIS B(3 of 3 - 3-dose series) due on 08/13/2012 PNEUMOCOCCAL(2 - PPSV23 or PCV20) due on 11/05/2015 LIPID SCREEN Never done DTAP,TDAP,TD(2 - Td or Tdap) due on 07/09/2019 COVID-19 VACCINE(2 - Pfizer series) due on 08/27/2020 INFLUENZA(1) due on 12/15/2021 HEPATITIS C SCREENING Completed HIV SCREENING Completed Data reviewed Previous records, office notes ASSESSMENT/PLAN: 1. Hepatomegaly - ICD9: 789.1, ICD10: R16.0 (primary diagnosis) Obtain lab work. Stat CT of abdomen. Will likely refer to general surgery for EGD and colonoscopy. Phenergan prn for n/v. Chest xray to r/o contributing causes. 2. Pulsatile abdomen - ICD9: 789.9, ICD10: R19.8 Obtain lab work. Stat CT of abdomen. Will likely refer to general surgery for EGD and colonoscopy. Phenergan prn for n/v. Chest xray to r/o contributing causes. - ECG COMPLETE 3. Nausea - ICD9: 787.02, ICD10: R11.0 Obtain lab work. Stat CT of abdomen. Will likely refer to general surgery for EGD and colonoscopy. Phenergan prn for n/v. Chest xray to r/o contributing causes. - CT ABD/PEL W IVCON - IV CONTRAST (RADIOLOGY PROCEDURE) - ENTERIC CONTRAST (RADIOLOGY PROCEDURE) - LIPASE BLD - AMYLASE BLD - CBC + DIFF - COMP METABOLIC PANEL - URINALYSIS, WITH MICROSCOPIC - IRON + TIBC - FERRITIN BLD - C-REACTIVE PROTEIN (CRP) - SED RATE WESTERGREN - C-PEPTIDE BLD - PROTEIN ELECT RND UR W/INTERP - TSH BLD - T3 BLD - T4 FREE/FREE THYROX - XR CHEST 2V FRONTAL/LAT - ECG COMPLETE 4. Nausea and vomiting, unspecified vomiting type - ICD9: 787.01, ICD10: R11.2 Obtain lab work. Stat CT of abdomen. Will likely refer to general surgery for EGD and colonoscopy. Phenergan prn for n/v. Chest xray to r/o contributing causes. - CT ABD/PEL W IVCON - IV CONTRAST (RADIOLOGY PROCEDURE) - ENTERIC CONTRAST (RADIOLOGY PROCEDURE) - LIPASE BLD - AMYLASE BLD - CBC + DIFF - COMP METABOLIC PANEL - URINALYSIS, WITH MICROSCOPIC - IRON + TIBC - FERRITIN BLD - C-REACTIVE PROTEIN (CRP) - SED RATE WESTERGREN - C-PEPTIDE BLD - PROTEIN ELECT RND UR W/INTERP - TSH BLD - T3 BLD - T4 FREE/FREE THYROX - XR CHEST 2V FRONTAL/LAT - ECG COMPLETE 5. Abdominal bloating - ICD9: 787.3, ICD10: R14.0 Obtain lab work. Stat CT of abdomen. Will likely refer to general surgery for EGD and colonoscopy. Phenergan prn for n/v. Chest xray to r/o contributing causes. - CT ABD/PEL W IVCON - IV CONTRAST (RADIOLOGY PROCEDURE) - ENTERIC CONTRAST (RADIOLOGY PROCEDURE) - LIPASE BLD - AMYLASE BLD - CBC + DIFF - COMP METABOLIC PANEL - URINALYSIS, WITH MICROSCOPIC - IRON + TIBC - FERRITIN BLD - C-REACTIVE PROTEIN (CRP) - SED RATE WESTERGREN - C-PEPTIDE BLD - PROTEIN ELECT RND UR W/INTERP - TSH BLD - T3 BLD - T4 FREE/FREE THYROX - XR CHEST 2V FRONTAL/LAT - ECG COMPLETE 6. Generalized abdominal pain - ICD9: 789.07, ICD10: R10.84 Obtain lab work. Stat CT of abdomen. Will likely refer to general surgery for EGD and colonoscopy. Phenergan prn for n/v. Chest xray to r/o contributing causes. - CT ABD/PEL W IVCON - IV CONTRAST (RADIOLOGY PROCEDURE) - ENTERIC CONTRAST (RADIOLOGY PROCEDURE) - LIPASE BLD - AMYLASE BLD - CBC + DIFF - COMP METABOLIC PANEL - URINALYSIS, WITH MICROSCOPIC - IRON + TIBC - FERRITIN BLD - C-REACTIVE PROTEIN (CRP) - SED RATE WESTERGREN - C-PEPTIDE BLD - PROTEIN ELECT RND UR W/INTERP - TSH BLD - T3 BLD - T4 FREE/FREE THYROX - XR CHEST 2V FRONTAL/LAT - ECG COMPLETE 7. Epigastric mass - ICD9: 789.36, ICD10: R19.06 Obtain lab work. Stat CT of abdomen. Will likely refer to general surgery for EGD and colonoscopy. Phenergan prn for n/v. Chest xray to r/o contributing causes. - CT ABD/PEL W IVCON - IV CONTRAST (RADIOLOGY PROCEDURE) - ENTERIC CONTRAST (RADIOLOGY PROCEDURE) - LIPASE BLD - AMYLASE BLD - CBC + DIFF - COMP METABOLIC PANEL - URINALYSIS, WITH MICROSCOPIC - IRON + TIBC - FERRITIN BLD - C-REACTIVE PROTEIN (CRP) - SED RATE WESTERGREN - C-PEPTIDE BLD - PROTEIN ELECT RND UR W/INTERP - TSH BLD - T3 BLD - T4 FREE/FREE THYROX - XR CHEST 2V FRONTAL/LAT - ECG COMPLETE 8. Right upper quadrant abdominal mass - ICD9: 789.31, ICD10: R19.01 Obtain lab work. Stat CT of abdomen. Will likely refer to general surgery for EGD and colonoscopy. Phenergan prn for n/v. Chest xray to r/o contributing causes. - CT ABD/PEL W IVCON - IV CONTRAST (RADIOLOGY PROCEDURE) - ENTERIC CONTRAST (RADIOLOGY PROCEDURE) - LIPASE BLD - AMYLASE BLD - CBC + DIFF - COMP METABOLIC PANEL - URINALYSIS, WITH MICROSCOPIC - IRON + TIBC - FERRITIN BLD - C-REACTIVE PROTEIN (CRP) - SED RATE WESTERGREN - C-PEPTIDE BLD - PROTEIN ELECT RND UR W/INTERP - TSH BLD - T3 BLD - T4 FREE/FREE THYROX - XR CHEST 2V FRONTAL/LAT - ECG COMPLETE 9. Abdominal mass, LUQ (left upper quadrant) - ICD9: 789.32, ICD10: R19.02 Obtain lab work. Stat CT of abdomen. Will likely refer to general surgery for EGD and colonoscopy. Phenergan prn for n/v. Chest xray to r/o contributing causes. - CT ABD/PEL W IVCON - IV CONTRAST (RADIOLOGY PROCEDURE) - ENTERIC CONTRAST (RADIOLOGY PROCEDURE) - LIPASE BLD - AMYLASE BLD - CBC + DIFF - COMP METABOLIC PANEL - URINALYSIS, WITH MICROSCOPIC - IRON + TIBC - FERRITIN BLD - C-REACTIVE PROTEIN (CRP) - SED RATE WESTERGREN - C-PEPTIDE BLD - PROTEIN ELECT RND UR W/INTERP - TSH BLD - T3 BLD - T4 FREE/FREE THYROX - XR CHEST 2V FRONTAL/LAT - ECG COMPLETE 10. Weight loss - ICD9: 783.21, ICD10: R63.4 Obtain lab work. Stat CT of abdomen. Will likely refer to general surgery for EGD and colonoscopy. Phenergan prn for n/v. Chest xray to r/o contributing causes. - CT ABD/PEL W IVCON - IV CONTRAST (RADIOLOGY PROCEDURE) - ENTERIC CONTRAST (RADIOLOGY PROCEDURE) - LIPASE BLD - AMYLASE BLD - CBC + DIFF - COMP METABOLIC PANEL - URINALYSIS, WITH MICROSCOPIC - IRON + TIBC - FERRITIN BLD - C-REACTIVE PROTEIN (CRP) - SED RATE WESTERGREN - C-PEPTIDE BLD - PROTEIN ELECT RND UR W/INTERP - TSH BLD - T3 BLD - T4 FREE/FREE THYROX - XR CHEST 2V FRONTAL/LAT - ECG COMPLETE 11. Early satiety - ICD9: 780.94, ICD10: R68.81 Obtain lab work. Stat CT of abdomen. Will likely refer to general surgery for EGD and colonoscopy. Phenergan prn for n/v. Chest xray to r/o contributing causes. - CT ABD/PEL W IVCON - IV CONTRAST (RADIOLOGY PROCEDURE) - ENTERIC CONTRAST (RADIOLOGY PROCEDURE) - LIPASE BLD - AMYLASE BLD - CBC + DIFF - COMP METABOLIC PANEL - URINALYSIS, WITH MICROSCOPIC - IRON + TIBC - FERRITIN BLD - C-REACTIVE PROTEIN (CRP) - SED RATE WESTERGREN - C-PEPTIDE BLD - PROTEIN ELECT RND UR W/INTERP - TSH BLD - T3 BLD - T4 FREE/FREE THYROX - XR CHEST 2V FRONTAL/LAT - ECG COMPLETE 12. Alcohol abuse - ICD9: 305.00, ICD10: F10.10 Obtain lab work. Stat CT of abdomen. Will likely refer to general surgery for EGD and colonoscopy. Phenergan prn for n/v. Chest xray to r/o contributing causes. - CT ABD/PEL W IVCON - IV CONTRAST (RADIOLOGY PROCEDURE) - ENTERIC CONTRAST (RADIOLOGY PROCEDURE) - LIPASE BLD - AMYLASE BLD - CBC + DIFF - COMP METABOLIC PANEL - URINALYSIS, WITH MICROSCOPIC - IRON + TIBC - FERRITIN BLD - C-REACTIVE PROTEIN (CRP) - SED RATE WESTERGREN - C-PEPTIDE BLD - PROTEIN ELECT RND UR W/INTERP - TSH BLD - T3 BLD - T4 FREE/FREE THYROX - XR CHEST 2V FRONTAL/LAT - ECG COMPLETE 13. Dark urine - ICD9: 791.9, ICD10: R82.998 Obtain lab work. Stat CT of abdomen. Will likely refer to general surgery for EGD and colonoscopy. Phenergan prn for n/v. Chest xray to r/o contributing causes. - CT ABD/PEL W IVCON - IV CONTRAST (RADIOLOGY PROCEDURE) - ENTERIC CONTRAST (RADIOLOGY PROCEDURE) - LIPASE BLD - AMYLASE BLD - CBC + DIFF - COMP METABOLIC PANEL - URINALYSIS, WITH MICROSCOPIC - IRON + TIBC - FERRITIN BLD - C-REACTIVE PROTEIN (CRP) - SED RATE WESTERGREN - C-PEPTIDE BLD - PROTEIN ELECT RND UR W/INTERP - TSH BLD - T3 BLD - T4 FREE/FREE THYROX - XR CHEST 2V FRONTAL/LAT - ECG COMPLETE Carmita Patrick APRN.FURNITURE MOVER HELPER [facility] History of Present illness Narrative* Samantha Polo, RT(R) - 11/04/2020 9:30 AM EDT Radiology Service Progress Note PATIENT NAME: Jose Parker DATE OF SERVICE: November 04, 2020 TIME: 9:36 AM PATIENT IDENTITY VERIFICATION COMPLETED USING TWO (2) IDENTIFIERS: Name and Date of confirmedby patient verbally. FALL SCREENING: Has the patient had 2 falls in the last year or 1 fall with injury or currently using an Ambulatory Assistive Device (Walker, Cane, Wheelchair, Crutches, etc.)? No PATIENT GENDER DATA: Male PATIENT RELEVANT IMPLANT DATA REVIEWED: Not Applicable RADIOLOGY DEPARTMENT: General X-ray: Exam(s) Completed: Upper Extremity X- Ray(s): Shoulder, AP / TRUE AP / AXILLARY right PERIPHERAL IV DATA: Not applicable SIGNED BY: RT Chapito(R) November 04, 2020 9:36 AM [facility] Diagnosis Nausea Nausea alone Nausea and vomiting, unspecified vomiting type Abdominal bloating Flatulence, eructation, and gas pain Generalized abdominal pain Abdominal pain, generalized Epigastric mass Abdominal or pelvic swelling, mass, or lump, epigastric Right upper quadrant abdominal mass Abdominal or pelvic swelling, mass, or lump, right upper quadrant Abdominal mass, LUQ (left upper quadrant) Abdominal or pelvic swelling, mass, or lump, left upper quadrant Weight loss Loss of weight Early satiety Alcohol abuse Alcohol abuse, unspecified Dark urine Other nonspecific finding on examination of urine documented in this [facility]* Diagnosis Intra-abdominal and pelvic swelling, mass and lump, unspecified site- Primary Nausea Nausea alone Abdominal bloating Flatulence, eructation, and gas pain Generalized abdominal pain Abdominal pain, generalized Weight loss Loss of weight Early satiety Alcohol abuse Alcohol abuse, unspecified Dark urine Other nonspecific finding on examination of urine Pulsatile abdomen Other symptoms involving abdomen and pelvis Hepatomegaly documented in [facility]* Diagnosis Hepatomegaly- Primary Pulsatile abdomen Other symptoms involving abdomen and pelvis Nausea Nausea alone Nausea and vomiting, unspecified vomiting type Abdominal bloating Flatulence, eructation, and gas pain Generalized abdominal pain Abdominal pain, generalized Epigastric mass Abdominal or pelvic swelling, mass, or lump, epigastric Right upper quadrant abdominal mass Abdominal or pelvic swelling, mass, or lump, right upper quadrant Abdominal mass, LUQ (left upper quadrant) Abdominal or pelvic swelling, mass, or lump, left upper quadrant Weight loss Loss of weight Early satiety Alcohol abuse Alcohol abuse, unspecified Dark urine Other nonspecific finding on examination of urine [facility]* Diagnosis Intra-abdominal and pelvic swelling, mass and lump, unspecified site Nausea Nausea alone Abdominal bloating Flatulence, eructation, and gas pain Generalized abdominal pain Abdominal pain, generalized Weight loss Loss of weight Early satiety Alcohol abuse Alcohol abuse, unspecified Dark urine Other nonspecific finding on examination of urine Pulsatile abdomen Other symptoms involving abdomen and pelvis Hepatomegaly [facility]* Diagnosis Intra-abdominal and pelvic swelling, mass and lump, unspecified site- Primary Abdominal bloating Flatulence, eructation, and gas pain Generalized abdominal pain Abdominal pain, generalized Weight loss Loss of weight Early satiety Alcohol abuse Alcohol abuse, unspecified Dark urine Other nonspecific finding on examination of urine Pulsatile abdomen Other symptoms involving abdomen and pelvis Hepatomegaly Nausea and vomiting, unspecified vomiting type [facility]* Diagnosis Hypersplenism- Primary Intra-abdominal and pelvic swelling, mass and lump, unspecified site Abdominal bloating Flatulence, eructation, and gas pain Generalized abdominal pain Abdominal pain, generalized Weight loss Loss of weight Early satiety Alcohol abuse Alcohol abuse, unspecified Dark urine Other nonspecific finding on examination of urine Pulsatile abdomen Other symptoms involving abdomen and pelvis Hepatomegaly Nausea and vomiting, unspecified vomiting type documented [facility] this [facility]* Diagnosis Alcoholic cirrhosis of liver without ascites (HCC)- Primary Alcoholic cirrhosis of liver Hepatomegaly Nausea and vomiting, unspecified vomiting type documented [facility]* Diagnosis Hepatomegaly- Primary [facility]* Diagnosis Alcohol use- Primary [facility]* Diagnosis Alcoholic liver disease (HCC)- Primary Alcoholic liver damage, unspecified [facility]* Diagnosis Hepatomegaly [facility]* Diagnosis Hepatomegaly- Primary documented [facility]* Diagnosis Alcohol abuse- Primary Alcohol abuse, unspecified [facility] Diagnosis Nausea Nausea alone Nausea and vomiting, unspecified vomiting type Abdominal bloating Flatulence, eructation, and gas pain Generalized abdominal pain Abdominal pain, generalized Epigastric mass Abdominal or pelvic swelling, mass, or lump, epigastric Right upper quadrant abdominal mass Abdominal or pelvic swelling, mass, or lump, right upper quadrant Abdominal mass, LUQ (left upper quadrant) Abdominal or pelvic swelling, mass, or lump, left upper quadrant Weight loss Loss of weight Early satiety Alcohol abuse Alcohol abuse, unspecified Dark urine Other nonspecific finding on examination of urine [facility]* Diagnosis Acute pain of right shoulder [facility]* Diagnosis Acute bacterial conjunctivitis of both eyes- Primary Tachycardia Tachycardia, unspecified Jaundice Jaundice, unspecified, not of documented [facility]* Diagnosis Generalized abdominal pain- Primary Abdominal pain, generalized Generalized abdominal pain Abdominal pain, generalized Other ascites Sepsis, due to unspecified organism, unspecified whether acute organ dysfunction present (Multi) Alcoholic cirrhosis, unspecified whether ascites present (Multi) documented in this encounter [facility] Work Phone: Hospital Discharge instructionsAdditional Instructions GoLytely for the constipation. Drink a 10 ounce glass every half an hour to an hour to give a large bowel movement. You have an enlarged liver with elevated liver enzymes and some fluid in your abdomen called ascites. I spoke to our GI doctor, Dr. Mckeon, call his office tomorrow they will get you in this week. You need further evaluation of this including possibly a liver biopsy. May be an MRI. Once they see you and look at all your test they can determine what additional testing they need to do.[facility] Work Phone: Reason for referral (narrative)* Outpatient Procedure (Routine) - Authorized Specialty Diagnoses / Procedures Referred By Contchalo t Referred To [facility] Diagnoses Nausea Nausea and vomiting, unspecified vomiting type Abdominal bloating Generalized abdominal pain Epigastric mass Right upper quadrant abdominal mass Abdominal mass, LUQ (left upper quadrant) Weight loss Early satiety Alcohol abuse Dark urine Pulsatile abdomen Procedures ECG COMPLETE ECG ROUTINE ECG W/LEAST 12 LDS W/I&R Carmita Patrick, ANNETTE.FURNITURE MOVER HELPER [address] [place] [address] [facility] [address] [place] [id number] Referral ID Status Reason Start Date Expiration Date Visits Requested Visits Authorized [id number] Authorized Auto-Generat ed Referral 01/02/2022 04/15/2022 1 1 * MRI/CT (Urgent) - Pending Review Specialty Diagnoses / Procedures Referred By Contac t Referred To Contact CT IMAGING Diagnoses Nausea Nausea and vomiting, unspecified vomiting type Abdominal bloating Generalized abdominal pain Epigastric mass Right upper quadrant abdominal mass Abdominal mass, LUQ (left upper quadrant) Weight loss Early satiety Alcohol abuse Dark urine Procedures CT ABD/PEL W IVCON CT ABD & PELVIS W/CONTRAST Carmita Patrick APRN.CNP [address] [place] [address] Ct Imaging Referral ID Status Reason Start Date Expiration Date Visits Requested Visits Authorized [id number] Pending Review Auto-Generat ed Referral 01/02/2022 02/01/2023 1 1 [facility] for referral (narrative)* Outpatient Procedure (Routine) - Pending Review Specialty Diagnoses / Procedures Referred By Medardo t Referred To Contact [facility] Diagnoses Hepatomegaly Procedures DDI VIBRATION CONTROLLED TRANSIENT ELASTOGRAPHY (VCTE) LIVER ELASTOGRAPHY W/O IMAG W/I&R Noemi Russell MD [address] [place] [address] [facility] [address] [place] [address] Referral ID Status Reason Start Date Expiration Date Visits Requested Visits Authorized [id number] Pending Review Auto-Generat ed Referral 01/19/2022 01/19/2023 1 1 * Diagnostic Procedure Only (Routine) - Authorized Specialty Diagnoses / Procedures Referred By Contac t Referred To Contact [facility] Diagnoses Hepatomegaly Procedures US DOPPLER COMPLETE DUP-SCAN ARTL GENO ABDL/PEL/SCROT&/RPR ORGN COM Noemi Russell MD [address] [place] [address] Us Imaging Referral ID Status Reason Start Date Expiration Date Visits Requested Visits Authorized [id number] Authorized Auto-Generat ed Referral 01/19/2022 02/18/2023 1 1 * Diagnostic Procedure Only (Routine) - Authorized Specialty Diagnoses / Procedures Referred By Contac t Referred To Contact [facility] IMAG[facility] Diagnoses Hepatomegaly Procedures US ABD LIVER VASCULAR US ABDOMINAL REAL TIME W/IMAGE LIMITED DUP-SCAN ARTL GENO ABDL/PEL/SCROT&/RPR ORGN COM Noemi Russell MD [address] [place] [address] Us Imaging Referral ID Status Reason Start Date Expiration Date Visits Requested Visits Authorized [id number] Authorized Auto-Generat ed Referral 01/19/2022 02/18/2023 1 1 [facility] for referral (narrative)* Diagnostic Procedure Only (Routine) - Closed Specialty Diagnoses / Procedures Referred By Contac t Referred To Contact US IMAGING Diagnoses Hepatomegaly Procedures US DOPPLER COMPLETE DUP-SCAN ARTL GENO ABDL/PEL/SCROT&/RPR ORGN [facility] Noemi Russell MD [address] [facility] [place] [address] Us Imaging Referral ID Status Reason Start Date Expiration Date V isits Requested Visits Authorized [id number] Closed Auto-Generate d Referral 01/19/2022 02/18/2023 1 1 * Diagnostic Procedure Only (Routine) - Closed Specialty Diagnoses / Procedures Referred By Contac t Referred To Contact US IMAGING Diagnoses Hepatomegaly Procedures US ABD LIVER VASCULAR US ABDOMINAL REAL TIME W/IMAGE LIMITED DUP-SCAN ARTL GENO ABDL/PEL/SCROT&/RPR ORGN [facility] Noemi Russell MD [address] [place] [address] Us Imaging Referral ID Status Reason Start Date Expiration Date V isits Requested Visits Authorized [id number] Closed Auto-Generate d Referral 01/19/2022 02/18/2023 1 1 [facility] for visit Narrative* Diagnostic Procedure Only (Routine) - Closed Specialty Diagnoses / Procedures Referred By Medardo t Referred To Contact US IMAGING Diagnoses Hepatomegaly Procedures US ABD LIVER VASCULAR US ABDOMINAL REAL TIME W/IMAGE LIMITED DUP-SCAN ARTL GENO ABDL/PEL/SCROT&/RPR ORGN [facility] Noemi Russell MD [address] [place] [id number] Us Imaging Referral ID Status Reason Start Date Expiration Date V isits Requested Visits Authorized [id number] Closed Auto-Generate d Referral 01/19/2022 02/18/2023 1 1 [facility] for visit Narrative* Outpatient Procedure (Routine) - Closed Specialty Diagnoses / Procedures Referred By Medardo t Referred To Contact [facility] Diagnoses Hepatomegaly Procedures DDI VIBRATION CONTROLLED TRANSIENT ELASTOGRAPHY (VCTE) LIVER ELASTOGRAPHY W/O IMAG W/I&R Noemi Russell MD [address] [place] [address] [facility] [address] [place] [address] Referral ID Status Reason Start Date Expiration Date V isits Requested Visits Authorized [id number] Closed Auto-Generate d Referral 01/19/2022 01/19/[address] [facility] Reason for Referral Specialty Diagnoses / Procedures Referred By Medardo t Referred To Contact CT IMAGING Diagnoses Intra-abdominal and pelvic swelling, mass and lump, unspecified site Nausea Abdominal bloating Generalized abdominal pain Weight loss Early satiety Alcohol abuse Dark urine Pulsatile abdomen Hepatomegaly Procedures CT ABD/PEL W IVCON CT ABD & PELVIS W/CONTRAST Carmita Patrick, LOOSE HAND PACKER.FURNITURE MOVER HELPER [address] [place] [address] Ct Imaging Referral ID Status Reason Start Date Expiration Date V isits Requested Visits Authorized [id number] Closed Auto-Generat ed Referral Patient Cleared - Admin/Chairm an/Director advise to proceed 01/04/2022 04/15/2022 2 2 Specialty Diagnoses / Procedures Referred By Contac t Referred To Contact Diagnoses Intra-abdominal and pelvic swelling, mass and lump, unspecified site Abdominal bloating Generalized abdominal pain Weight loss Early satiety Alcohol abuse Dark urine Pulsatile abdomen Hepatomegaly Nausea and vomiting, unspecified vomiting type Procedures CONSULT TO HEPATOLOGY OFFICE/OUTPATIENT [facility] 60-74 MINUTES Carmita Patrick LOOSE HAND PACKER.FURNITURE MOVER HELPER [address] [place] [address] Referral ID Status Reason Start Date Expiration Date Visits Requested Visits Authorized [id number] Authorized PCP Requested Referral 01/05/2022 01/05/2023 1 1 Specialty Diagnoses / Procedures Referred By Contac t Referred To Contact MR IMAGING Diagnoses Hepatomegaly Hypersplenism Procedures MRI LIVER WO/W IVCON MRI ABDOMEN W/O & W/CONTRAST MATERIAL Aleks Najera MD [address] [place] [address] Mr Imaging Referral ID Status Reason Start Date Expiration Date V isits Requested Visits Authorized [id number] Open Auto-Generate d Referral 01/09/2022 02/08/2023 1 1 Specialty Diagnoses / Procedures Referred By Contac t Referred To Contact Diagnoses Hepatomegaly Nausea and vomiting, unspecified vomiting type Procedures CONSULT TO HEPATOLOGY OFFICE/OUTPATIENT [facility] 60-74 MINUTES Aleks Najera MD [address] [place] [address] Referral ID Status Reason Start Date Expiration Date Visits Requested Visits Authorized [id number] Authorized PCP Requested Referral 01/09/2022 01/09/2023 1 1 Referral ID Status Reason Start Date Expiration Date Visits Requested Visits Authorized [id number] Authorized PCP Requested Referral 01/09/2022 01/09/2023 1 1 Specialty Diagnoses / Procedures Referred By Contac t Referred To Contact XR IMAGING Diagnoses Acute pain of right shoulder Procedures XR SHOULDER GENERAL 3V OR MORE AP/TRUE AP/OTHER RT X-RAY SHOULDER COMPLET MIN 2 VIEWS Schuyler Hartman APRN.FURNITURE MOVER HELPER [address] [place] [id number] [place] [id number] Referral ID Status Reason Start Date Expiration Date Visits Re quested Visits Authorized [id number] Closed 11/04/2020 12/04/2021 1 1 Summary Purpose Family History No Family History Records FoundNo Family History Records FoundNo Family History Records FoundNo Family History Records FoundNo Family History Records Found Advance Directives No Advanced Directives Records Found Advance Directive Response Recorded Date/ Time Do you have a Healthcare Power of Resource Specialist? No December 02, 2024 2:51pm Date Activated Date Inactivated Comments 2024 2:01 AM Question Answer Comments Plan of Care: Code Status Discussion Completed Decision Maker: Patient Chief Complaint and Reason for Visit Chief Complaint Admit Date PE/NON DOT/PHYSICAL/[place] September 04 7:46am edema December 02, 2024 2: 46pm Reason for Visit Admit Date Physical exam, pre-employment September 04, 2024 7:46am Chief Complaint Admit Date PE/NON DOT/PHYSICAL/[place] September 04 7:46am edema December 02, 2024 2: 46pm [facility] December 04, 2024 10 :00am Reason for Visit Admit Date Physical exam, pre-employment September 04, 2024 7:46am Abdominal ascites December 04, 2024 10 :00am Abdominal pain December 04, 2024 10 :00am Abnormal findings on diagnostic imaging of abdomen December 04, 2024 10:00am Elevated liver enzymes December 04, 2024 10:00am Chief Complaint Admit Date PE/NON DOT/PHYSICAL/[place] September 04 7:46am edema December 02, 2024 2: 46pm Hospital December 04, 2024 10 :00am ABDOMINAL MASS December 04, 2024 1: 48pm Reason for Visit Admit Date Physical exam, pre-employment September 04, 2024 7:46am Abnormal findings on diagnostic imaging of abdomen December 04, 2024 10:00am Acute alcoholic hepatitis December 04, 2 025 10:00am Abdominal ascites December 04, 2024 10 :00am Abdominal pain December 04, 2024 10 :00am Elevated liver enzymes December 04, 2024 10:00am Chief Complaint Admit Date PE/NON DOT/PHYSICAL/[place] September 04 7:46am edema December 02, 2024 2: 46pm [facility] December 04, 2024 10 :00am ABDOMINAL MASS December 04, 2024 1: 48pm Follow Up from December 29, 2024 10:14am Additional Source Comments Source Comments (unrecognize d section and content) In the event this informatio n is protected by the Federal Confidentiality of Alcohol and Drug Abuse Patient Records regulations: The Federal rules restrict any use of the information to criminally investigate or prosecute any alcohol or drug abuse patient.[facility] the event this information is protected by the Federal Confidentiality of Alcohol and Drug Abuse Patient Records regulations: The Federal rules restrict any use of the information to criminally investigate or prosecute any alcohol or drug abuse patient.[facility] the event this information is protected by the Federal Confidentiality of Alcohol and Drug Abuse Patient Records regulations: The Federal rules restrict any use of the information to criminally investigate or prosecute any alcohol or drug abuse patient.[facility] the event this information is protected by the Federal Confidentiality of Alcohol and Drug Abuse Patient Records regulations: The Federal rules restrict any use of the information to criminally investigate or prosecute any alcohol or drug abuse patient.[facility] the event this information is protected by the Federal Confidentiality of Alcohol and Drug Abuse Patient Records regulations: The Federal rules restrict any use of the information to criminally investigate or prosecute any alcohol or drug abuse patient.[facility] CampusIn the event this information is protected by the Federal Confidentiality of Alcohol and Drug Abuse Patient Records regulations: The Federal rules restrict any use of the information to criminally investigate or prosecute any alcohol or drug abuse patient.[facility] CampusIn the event this information is protected by the Federal Confidentiality of Alcohol and Drug Abuse Patient Records regulations: The Federal rules restrict any use of the information to criminally investigate or prosecute any alcohol or drug abuse patient.[facility] CampusIn the event this information is protected by the Federal Confidentiality of Alcohol and Drug Abuse Patient Records regulations: The Federal rules restrict any use of the information to criminally investigate or prosecute any alcohol or drug abuse patient.[facility] CampusIn the event this information is protected by the Federal Confidentiality of Alcohol and Drug Abuse Patient Records regulations: The Federal rules restrict any use of the information to criminally investigate or prosecute any alcohol or drug abuse patient.[facility] CampusIn the event this information is protected by the Federal Confidentiality of Alcohol and Drug Abuse Patient Records regulations: The Federal rules restrict any use of the information to criminally investigate or prosecute any alcohol or drug abuse patient.[facility] [place] CampusIn the event this information is protected by the Federal Confidentiality of Alcohol and Drug Abuse Patient Records regulations: The Federal rules restrict any use of the information to criminally investigate or prosecute any alcohol or drug abuse patient.[facility] [place] CampusIn the event this information is protected by the Federal Confidentiality of Alcohol and Drug Abuse Patient Records regulations: The Federal rules restrict any use of the information to criminally investigate or prosecute any alcohol or drug abuse patient.[facility] [place] CampusIn the event this information is protected by the Federal Confidentiality of Alcohol and Drug Abuse Patient Records regulations: The Federal rules restrict any use of the information to criminally investigate or prosecute any alcohol or drug abuse patient.[facility] [place] CampusIn the event this information is protected by the Federal Confidentiality of Alcohol and Drug Abuse Patient Records regulations: The Federal rules restrict any use of the information to criminally investigate or prosecute any alcohol or drug abuse patient.[facility] [place] CampusIn the event this information is protected by the Federal Confidentiality of Alcohol and Drug Abuse Patient Records regulations: The Federal rules restrict any use of the information to criminally investigate or prosecute any alcohol or drug abuse patient.[facility] [place] CampusIn the event this information is protected by the Federal Confidentiality of Alcohol and Drug Abuse Patient Records regulations: The Federal rules restrict any use of the information to criminally investigate or prosecute any alcohol or drug abuse patient.[facility] [place] CampusIn the event this information is protected by the Federal Confidentiality of Alcohol and Drug Abuse Patient Records regulations: The Federal rules restrict any use of the information to criminally investigate or prosecute any alcohol or drug abuse patient.[facility] [place] CampusIn the event this information is protected by the Federal Confidentiality of Alcohol and Drug Abuse Patient Records regulations: The Federal rules restrict any use of the information to criminally investigate or prosecute any alcohol or drug abuse patient.[facility] [place] CampusIn the event this information is protected by the Federal Confidentiality of Alcohol and Drug Abuse Patient Records regulations: The Federal rules restrict any use of the information to criminally investigate or prosecute any alcohol or drug abuse patient.[facility] [place] CampusIn the event this information is protected by the Federal Confidentiality of Alcohol and Drug Abuse Patient Records regulations: The Federal rules restrict any use of the information to criminally investigate or prosecute any alcohol or drug abuse patient.[facility] [place] CampusIn the event this information is protected by the Federal Confidentiality of Alcohol and Drug Abuse Patient Records regulations: The Federal rules restrict any use of the information to criminally investigate or prosecute any alcohol or drug abuse patient.[facility] [place] CampusIn the event this information is protected by the Federal Confidentiality of Alcohol and Drug Abuse Patient Records regulations: The Federal rules restrict any use of the information to criminally investigate or prosecute any alcohol or drug abuse patient.[facility] [place] CampusIn the event this information is protected by the Federal Confidentiality of Alcohol and Drug Abuse Patient Records regulations: The Federal rules restrict any use of the information to criminally investigate or prosecute any alcohol or drug abuse patient.[facility] [place] CampusIn the event this information is protected by the Federal Confidentiality of Alcohol and Drug Abuse Patient Records regulations: The Federal rules restrict any use of the information to criminally investigate or prosecute any alcohol or drug abuse patient.[facility] [place] CampusIn the event this information is protected by the Federal Confidentiality of Alcohol and Drug Abuse Patient Records regulations: The Federal rules restrict any use of the information to criminally investigate or prosecute any alcohol or drug abuse patient.[facility] [place] [facility] Care Teams (unrecognized sec tion and content) Camera Prototyping Engineer Relationship Specialty Start Date End Date Carmita Patrick APRN.FURNITURE MOVER HELPER [address] [place], [place] [id number] PCP - General Family Practice 12/27/21 Camera Prototyping Engineer Relationship Specialty Start Date End Date Carmita Patrick APRN.FURNITURE MOVER HELPER [address] [place], [place] [id number] PCP - General Family Medicine 12/27/21 Camera Prototyping Engineer Relationship Specialty Start Date End Date Carmita Patrick, LOOSE HAND PACKER.FURNITURE MOVER HELPER [address] [place] [id number] PCP - General Family Medicine 12/27/21 Camera Prototyping Engineer Relationship Specialty Start Date End Date Carmita Patrick, LOOSE HAND PACKER.FURNITURE MOVER HELPER [address] [place] [address] PCP - General Family Medicine 12/27/21 Camera Prototyping Engineer Relationship Specialty Start Date End Date Carmita Patrick, LOOSE HAND PACKER.FURNITURE MOVER HELPER [address] [place] [address] PCP - General Family Medicine 12/27/21 Camera Prototyping Engineer Relationship Specialty Start Date End Date Carmita Patrick, LOOSE HAND PACKER.FURNITURE MOVER HELPER [address] [place] [address] PCP - General Family Medicine 12/27/21 Camera Prototyping Engineer Relationship Specialty Start Date End Date Carmita Patrick, LOOSE HAND PACKER.FURNITURE MOVER HELPER [address] [place] [address] PCP - General Family Medicine 12/27/21 Camera Prototyping Engineer Relationship Specialty Start Date End Date Carmita Patrick, LOOSE HAND PACKER.FURNITURE MOVER HELPER [address] [place] [address] PCP - General Family Medicine 12/27/21 Camera Prototyping Engineer Relationship Specialty Start Date End Date Carmita Patrick, LOOSE HAND PACKER.FURNITURE MOVER HELPER [address] [place] [address] PCP - General Family Medicine 12/27/21 Camera Prototyping Engineer Relationship Specialty Start Date End Date Carmita Patrick, LOOSE HAND PACKER.FURNITURE MOVER HELPER [address] [place] [address] PCP - General Family Medicine 12/27/21 Camera Prototyping Engineer Relationship Specialty Start Date End Date Carmita Patrick, LOOSE HAND PACKER.FURNITURE MOVER HELPER [address] [place] [id number] PCP - General Family Medicine 12/27/21 Camera Prototyping Engineer Relationship Specialty Start Date End Date Carmita Patrick, LOOSE HAND PACKER.FURNITURE MOVER HELPER [address] [place] [address] PCP - General Family Medicine 12/27/21 Camera Prototyping Engineer Relationship Specialty Start Date End Date Carmita Patrick, LOOSE HAND PACKER.FURNITURE MOVER HELPER [address] [place] [address] PCP - General Family Medicine 12/27/21 Camera Prototyping Engineer Relationship Specialty Start Date End Date Carmita Patrick, LOOSE HAND PACKER.FURNITURE MOVER HELPER [address] [place] [address] PCP - General Family Medicine 12/27/21 Camera Prototyping Engineer Relationship Specialty Start Date End Date Carmita Patrick, LOOSE HAND PACKER.FURNITURE MOVER HELPER [address] [place] [address] PCP - General Family Medicine 12/27/21 Camera Prototyping Engineer Relationship Specialty Start Date End Date Carmita Patrick, LOOSE HAND PACKER.FURNITURE MOVER HELPER [address] [place] [address] PCP - General Family Medicine 12/27/21 Camera Prototyping Engineer Relationship Specialty Start Date End Date Carmita Patrick, LOOSE HAND PACKER.FURNITURE MOVER HELPER [address] [place] [address] PCP - General Family Medicine 12/27/21 Camera Prototyping Engineer Relationship Specialty Start Date End Date Carmita Patrick, LOOSE HAND PACKER.FURNITURE MOVER HELPER [address] [place] [address] PCP - General Family Medicine 12/27/21 Camera Prototyping Engineer Relationship Specialty Start Date End Date Carmita Patrick, LOOSE HAND PACKER.FURNITURE MOVER HELPER [address] [place] [address] PCP - General Family Medicine 12/27/21 Camera Prototyping Engineer Relationship Specialty Start Date End Date Carmita Patrick, LOOSE HAND PACKER.FURNITURE MOVER HELPER [address] [place] [address] PCP - General Family Medicine 12/27/21 Team Status: Active Member Role/Relationship Status Dates Carmita Patrick MANHOLE STRIPPER, MANHOLE STRIPPER-C Primary Care Provider Active Team Status: Inactive Member Role/Relationship Status Dates Dr. Zac Byers MD Primary Care Provider Active Start: September 04, 2024 End: September 04, 2024 Dr. Zac Byers MD Referring Provider Active Start: September 04, 2024 End: September 04, 2024 Sameer BOLDEN, PA Attending Provider Active Sta rt: September 04, 2024 End: September 04, 2024 Team Status: Inactive Member Role/Relationship Status Dates Dr. Taj Nieves MD Emergency Provider Active S tart: December 02, 2024 End: December 02, 2024 Carmita Patrick MANHOLE STRIPPER, MANHOLE STRIPPER-C Primary Care Provider Active Start: December 02, 2024 End: December 02, 2024 Team Status: Inactive Member Role/Relationship Status Dates Carmita Patrick MANHOLE STRIPPER, MANHOLE STRIPPER-C Primary Care Provider Active Start: December 04, 2024 End: December 04, 2024 Carmita Patrick NP, MANHOLE STRIPPER-C Referring Provider Active Start: December 04, 2024 End: December 04, 2024 Maria Ines Ceja NP-C Attending Provider Active Start: December 04, 2024 End: December 04, 2024 Team Status: Active Member Role/Relationship Status Dates Carmita Patrick NP, MANHOLE STRIPPER-C Primary Care Provider Active Start: December 04, 2024 Maria Ines Ceja NP-C Attending Provider Active Start: December 04, 2024 Maria Ines Ceja NP-C Referring Provider Active Start: December 04, 2024 Team Status: Inactive Member Role/Relationship Status Dates Dr. Taj Nieves MD Attending Provider Active S tart: December 02, 2024 End: December 02, 2024 Dr. Taj Nieves MD Emergency Provider Active S tart: December 02, 2024 End: December 02, 2024 Carmita Patrick MANHOLE STRIPPER, MANHOLE STRIPPER-C Primary Care Provider Active Start: December 02, 2024 End: December 02, 2024 Team Status: Inactive Member Role/Relationship Status Dates Carmita Patrick NP, MANHOLE STRIPPER-C Primary Care Provider Active Start: December 04, 2024 End: December 04, 2024 Maria Ines Ceja MANHOLE STRIPPER-C Attending Provider Active Start: December 04, 2024 End: December 04, 2024 Maria Ines Ceja , MANHOLE STRIPPER-C Referring Provider Active Start: December 04, 2024 End: December 04, 2024 Team Status: Active Member Role/Relationship Status Dates Carmita Patrick NP, MANHOLE STRIPPER-C Primary Care Provider Active Start: December 04, 2024 Maria Ines Ceja , MANHOLE STRIPPER-C Attending Provider Active Start: December 04, 2024 Maria Ines Ceja MANHOLE STRIPPER-C Referring Provider Active Start: December 04, 2024 Team Status: Inactive Member Role/Relationship Status Dates Carmita Patrick NP, MANHOLE STRIPPER-C Primary Care Provider Active Start: December 04, 2024 End: December 04, 2024 Maria Ines Ceja MANHOLE STRIPPER-C Attending Provider Active Start: December 04, 2024 End: December 04, 2024 Maria Ines Ceja , MANHOLE STRIPPER-C Referring Provider Active Start: December 04, 2024 End: December 04, 2024 Camera Prototyping Engineer Relationship Specialty [place] [address] [place] [facility] Department of Medicine-General Internal [place] [id number] Consulting Physician Hospitalist 12/05/24 Team Status: Inactive Member Role/Relationship Status Dates Carmita Patrick NP, MANHOLE STRIPPER-C Primary Care Provider Active Start: December 29, 2024 End: December 29, 2024 Carmita Patrick MANHOLE STRIPPER, MANHOLE STRIPPER-C Referring Provider Active Start: December 29, 2024 End: December 29, 2024 Maria Ines Ceja MANHOLE STRIPPER-C Attending Provider Active Start: December 29, 2024 End: December 29, 2024 Reason for Visit (unrecogniz ed section and content) Reason Comments Patient update re: CT scan Left without having test done Reason Comments Establish Care Abdominal Pain X 2 months Nausea Reason Comments Radiology CT Specialty Diagnoses / Procedures Referred By Contac t Referred To Contact CT IMAGING Diagnoses Intra-abdominal and pelvic swelling, mass and lump, unspecified site Nausea Abdominal bloating Generalized abdominal pain Weight loss Early satiety Alcohol abuse Dark urine Pulsatile abdomen Hepatomegaly Procedures CT ABD/PEL W IVCON CT ABD & PELVIS W/CONTRAST Carmita Patrick, LOOSE HAND PACKER.FURNITURE MOVER HELPER [address] [place] [address] Ct Imaging Referral ID Status Reason Start Date Expiration Date V isits Requested Visits Authorized [id number] Closed Auto-Generat ed Referral Patient Cleared - Admin/Chairm an/Director advise to proceed 01/04/2022 04/15/2022 2 2 Reason Comments Results Reason Comments New Patient Abd discomfort Specialty Diagnoses / Procedures Referred By Contac t Referred To Contact Diagnoses Intra-abdominal and pelvic swelling, mass and lump, unspecified site Abdominal bloating Generalized abdominal pain Weight loss Early satiety Alcohol abuse Dark urine Pulsatile abdomen Hepatomegaly Nausea and vomiting, unspecified vomiting type Procedures CONSULT TO HEPATOLOGY OFFICE/OUTPATIENT [facility] 60-74 MINUTES Carmita Patrick, LOOSE HAND PACKER.FURNITURE MOVER HELPER [address] [place] [address] Referral ID Status Reason Start Date Expiration Date V isits Requested Visits Authorized [id number] Closed PCP Requested Referral 01/05/2022 01/05/2023 1 1 Reason Comments Appointment Reason Comments Liver Disease Specialty Diagnoses / Procedures Referred By Contac t Referred To Contact Diagnoses Hepatomegaly Nausea and vomiting, unspecified vomiting type Procedures CONSULT TO HEPATOLOGY OFFICE/OUTPATIENT [facility] 60-74 MINUTES Aleks Najera MD [address] [place] [address] Referral ID Status Reason Start Date Expiration Date V isits Requested Visits Authorized [id number] Closed PCP Requested Referral 01/09/2022 01/09/2023 1 1 Reason Comments Care Coordination MAP clinic follow up Reason Onset Date Comments Refill Request 03/17/2022 Reason Onset Date Comments Refill Request 10/02/2022 Refill Request 2022 Reason Comments Patient Question Specialty Diagnoses / Procedures Referred By Contac t Referred To Contact Radiology / [facility] Diagnoses Acute pain of right shoulder [M25.511] Procedures XR GENERAL 7 Schuyler Hartman, LOOSE HAND PACKER.FURNITURE MOVER HELPER [address] [place] [address] Radio General [facility] [address] [place] [address] Referral ID Status Reason Start Date Expiration Date Visits Re quested Visits Authorized [id number] Closed 11/04/2020 02/02/2021 99 99 Reason Comments Eye Problem Possible SETH pink ey e x 2 days Reason Comments Abdominal Pain Specialty Diagnoses / Procedures Referred By Contac t Referred To Contact Diagnoses Generalized abdominal pain Procedures No [place] [address] [facility] Department of [place] [address] Phone: tel: fax: [facility] Emergency Medicine [address] [place] [address] Phone: tel: fax: Referral ID Status Reason Start Date Expiration Date Visits Re quested Visits Authorized [id number] 1 1 (unrecognized sect ion and content) No Status Records FoundNo Status Records FoundNo Status Records FoundNo Status Records FoundNo Status Records Found INFORMATION SOURCE (unrecogn ized section and content) DATE CREATED AUTHOR 01/15/2022 [facility] DATE CREATED AUTHOR AUTHOR'S ORGANIZ ATION 12/06/2024 [facility] DATE CREATED AUTHOR AUTHOR'S ORGANIZ ATION 12/07/2024 [facility] DATE CREATED AUTHOR AUTHOR'S ORGANIZ ATION 12/26/2024 [facility] DATE CREATED AUTHOR AUTHOR'S ORGANIZ ATION 12/29/2024 [facility] Goals (unrecognized section and content) Goals may be documented in a n alternate sectionGoals may be documented in an alternate sectionGoals may be documented in an alternate sectionGoals may be documented in an alternate sectionGoals may be documented in an alternate section Scheduled Active and Recently Administ ered Medications (unrecognized section and content) Medication Order 12/10/2024 12/11/2024 12/12/2024 folic acid (Folvite) tablet 1 mg 1 mg, oral, Daily, First dose on Sun12/05/24 at 0900 0957 (Given - Provider: Roxanna Dockery RN) 0853 (Given - Provider: Sondra Ureña RN) 0929 (Given - Provider: Sondra Ureña RN) furosemide (Lasix) injection 20 mg (CANCELED) 20 mg, intravenous, Daily, First dose on Sun12/09/24 at 0900, For doses less than or = 160 mg, give IV push at maximum rate of 40 mg/min For doses greater than 160 mg, dilute in 50 mL and administer at 4 mg/min 0956 (Given - Provider: Roxanna Dockery RN) furosemide (Lasix) tablet 20 mg (CANCELED) 20 mg, oral, Daily, First dose on Sun12/10/24 at 1130 1113 (Not Given - Provider: Roxanna Dockery RN - Reason: Other - Comment: 20mg IVP lasix already given to pt. will start PO tomorrow) 0853 (Given - Provider: Sondra Ureña RN) furosemide (Lasix) tablet 20 mg (COMPLETED) 20 mg, oral, Once, On Sun12/11/24 at 1200, For 1 dose 1250 (Given - Provider: Sondra Ureña RN) furosemide (Lasix) tablet 40 mg 40 mg, oral, Daily, First dose (after last modification) on Sun12/12/24 at 0900 0929 (Given - Provider: Sondra Ureña RN) insulin lispro injection 0-5 Units 0-5 Units, subcutaneous, 3 times daily before meals, First dose on Sun12/08/24 at 1600, Do not hold when patient is not eating, continue order as scheduled for hyperglycemia management. Insulin Lispro Corrective Scale #1 Hypoglycemia protocol Call LIP unit(s) if Blood Glucose is between 0 - 70 mg/dL 0 unit(s) if Blood glucose is between 71-150 1 unit(s) if Blood glucose is between 151-200 2 unit(s) if Blood glucose is between 201-250 3 unit(s) if Bloodglucose is between 251-300 4 unit(s) if Blood glucose is between 301-350 5 unit(s) if Blood glucose is between 351-400 If blood glucose is greater than 400 mg/dL, give max insulin per sliding scale AND then contact provider. 1002 (Not Given - Provider: Roxanna Dcokery RN - Reason: See Provider Order)1151 (Not Given - Provider: Roxanna Dockery RN - Reason: See Provider Order)1804 (Not Given - Provider: Roxanna Dockery RN - Reason: See Provider Order) 0848 (Not Given - Provider: Sondra Ureña RN - Reason: Order parameters not met)1215 (Not Given - Provider: Sondra Ureña RN - Reason: Order parameters not met)1715 (Not Given - Provider: Sondra Ureña RN - Reason: Order parameters not met) 0841 (Not Given - Provider: Sondra Ureña RN - Reason: Order parameters not met)1242 (Not Given - Provider: Sondra Ureña RN - Reason: Order parameters not met)1600 (Due) lactulose 20 gram/30 mL oral solution 10 g 10 g, oral, 3 times daily, First dose (after last modification) on Sun12/07/24 at 2100, CONTRAINDICATED IN LIVER TRANSPLANT PATIENTS IN POST-OP PHASE OF CARE 1001 (Given - Provider: Roxanna Dockery RN)1547 (Not Given - Provider: Roxanna Dockery RN - Reason: Patient/family refused)2041 (Not Given - Provider: Marcellus Zavala RN - Reason: Patient/family refused) 0857 (Given - Provider: Sondra Ureña RN)1624 (Given - Provider: Sondra Ureña RN)2045 (Given - Provider: Sondra Ureña RN) 0929 (Not Given - Provider: Sondra Ureña RN - Reason: Patient/family refused)1500 (Due)2100 (Due) lidocaine 4 % patch 1 patch 1 patch, transdermal, Administer over 12 Hours, Daily, First dose on Sun12/08/24 at 0900, Apply to areas of pain. Patch will remain on for 12 hours, then removed for [address] patch directly over any surgical incisions or wounds. 1002 (Not Given - Provider: Roxanna Dockery RN - Reason: Patient/family refused) 0856 (Not Given - Provider: Sondra Ureña RN - Reason: Patient/family refused) 0932 (Not Given - Provider: Sondra Ureña RN - Reason: Patient/family refused) multivitamin with minerals 1 tablet 1 tablet, oral, Daily, First dose on Sun12/05/24 at 0900 0957 (Given - Provider: Roxanna Dockery RN) 0853 (Given - Provider: Sondra Ureña RN) 0929 (Given - Provider: Sondra Ureña RN) nicotine (Nicoderm CQ) 14 mg/24 hr patch 1 patch 1 patch, transdermal, Administer over 24 Hours, Every 24 hours, First dose on Sun12/06/24 at 1315 1300 (Not Given - Provider: Roxanna Dockery RN - Reason: Patient/family refused)1309 (Medication Removed - Provider: Roxanna Dockery RN) 1249 (Not Given - Provider: Sondra Ureña RN - Reason: Patient/family refused) 1312 (Not Given - Provider: Sondra Ureña RN - Reason: Patient/family refused) pantoprazole (ProtoNix) EC tablet 40 mg 40 mg, oral, Daily before breakfast, First dose on Sun12/09/24 at 0700, Do not crush, chew, or split. 0637 (Given - Provider: Jose Hamilton LPN) 0628 (Given - Provider: Marcellus Zavala RN) 0929 (Given - Provider: Sondra Ureña RN) prednisoLONE (Sterane) tablet 40 mg 40 mg, oral, Daily, First dose on Sun12/09/24 at 1100 0956 (Given - Provider: Roxanna Dockery RN) 0853 (Given - Provider: Sondra Ureña RN) 0929 (Given - Provider: Sondra Ureña RN) rifAXIMin (Xifaxan) tablet 550 mg 550 mg, oral, Every 12 hours scheduled, First dose on Sun12/05/24 at 0900, Suspected Indication (Select all that apply): Medical Prophylaxis, Indications: Medical Prophylaxis 0957 (Given - Provider: Roxanna Dockery RN)2034 (Given - Provider: Marcellus Zavala RN) 0853 (Given - Provider: Sondra Ureña RN)204 (Given - Provider: Sondra Ureña RN) 0929 (Given - Provider: Sondra Ureña, [place])2100 (Due) spironolactone (Aldactone) tablet 100 mg 100 mg, oral, Daily, First dose (after last modification) on Sun12/12/24 at 0900 0929 (Given - Provider: Sondra Ureña, [place]) spironolactone (Aldactone) tablet 50 mg (CANCELED) 50 mg, oral, Daily, First dose on Sun12/06/24 at 1315 0957 (Given - Provider: Roxanna Dockery, [place]) 0853 (Given - Provider: Sondra Ureña, [place]) thiamine (Vitamin B-1) tablet 100 mg 100 mg, oral, Daily, First dose on Sun12/08/24 at 0545, To start after three days of IV 0957 (Given - Provider: Roxanna Dockery RN) 0853 (Given - Provider: Sondra Ureña, [place]) 0929 (Given - Provider: Sondra Ureña, [place]) PRN Medication Order 12/10/2024 12/11/2024 12/12/2024 alum-mag hydroxide-simeth (Mylanta) 200-200-20 mg/5 mL oral suspension 20 mL 20 mL, oral, 4 times daily PRN, indigestion, heartburn, Starting on Sun12/08/24 at 1740 dextrose 50 % injection 12.5 g 12.5 g, intravenous, Every 15 min PRN, For blood glucose 41 to 70 mg/dL, Starting on Sun12/08/24 at 1258, May repeat until blood glucose level reaches 100 mg/dL or greater. Push 2 - 3 mL/minute if patient has secure IV access. dextrose 50 % injection 25 g 25 g, intravenous, Every 15 min PRN, For blood glucose less than or equal to 40 mg/dL, Starting on Sun12/08/24 at 1258, May repeat until blood glucose level reaches 100 mg/dL or greater. Push 2 - 3 mL/minute if patient has secure IV access. diazePAM (Valium) injection 10 mg 10 mg, intravenous, Administer over 3 Minutes, Every 2 hour PRN, CIWA score greater than 6 or HR greater than 100 BPM, Starting on Sun12/05/24 at 1048, Administer over 1-3 minutes, maximum rate is 5 mg per minute. glucagon (Glucagen) injection 1 mg 1 mg, intramuscular, Every 15 min PRN, blood glucose less than or equal to 40 mg/dL - see comments, For blood glucose less than or equal to 40 mg/dL and no IV access, Starting on 12/08/24 at 1258, Give until blood glucose is 100 mg/dL or greater. If patient DOES NOT HAVE secure IV access & patient is unconscious, NPO or is unable to eat or drink. glucagon (Glucagen) injection 1 mg 1 mg, intramuscular, Every 15 min PRN, blood glucose 41 to 70 mg/dL - see comments, For blood glucose 41 to 70 mg/dL and no IV access, Starting on 12/08/24 at 1258, Give until blood glucose is 100 mg/dL or greater. If patient DOES NOT HAVE secure IV access & patient is unconscious, NPO or is unable to eat or drink. oxygen (O2) therapy 1 Dose, inhalation, Continuous - O2/gases, oxygen, Starting on 12/06/24 at 2129, Device: Nasal Cannula, Rate in liters per minute: Other, Custom Value: Titrate to meet goal, Keep O2 Sat Above: 92% 0517 (Start - Provider: Jose Hamilton LPN)1000 (Stopped - Provider: Roxanna Dockery RN) FOR RECORDS PERTAINING TO PATIENTS WHO ARE OR HAVE BEEN ENROLLED IN A CHEMICAL DEPENDENCY/SUBSTANCEABUSE PROGRAM, SOME INFORMATION MAY BE OMITTED. This clinical summary was aggregated from multiple sources. Caution should be exercised in using it in the provision of clinical care. This summary normalizes information from multiple sources, and as a consequence, information in this document may materially change the coding, format and clinical context of patient data. In addition, data may be omitted in some cases. CLINICAL DECISIONS SHOULD BE BASED ON THE PRIMARY CLINICAL RECORDS. [employer] provides no warranty or guarantee of the accuracy or completeness of information in this document.
--- NOTE | 2024-12-30 01:45 | PCM.HP.STD ---
HPI - General General Date of Admission: 12/30/24 Date of Service: 12/30/24 Chief Complaint: Liver failure secondary to alcoholic cirrhosis HPI Narrative JOSE PARKER, is a 44 M who presents to the emergency room after a follow-up appointment as gastroenterology office earlier today. He was recommended to be sent to the emergency room due to concern for decompensation and progressive jaundice. Patient has significant past medical history of alcoholic hepatitis, jaundice, ascites, possible hepatic cellular carcinoma who presented for increased weakness and jaundice. Patient had been recently admitted to [facility] for decompensated alcoholic cirrhosis and was discharged on December 12, 2024. His last drink of alcohol was December 01. He was weak and dizzy and fell earlier today in the bathroom but does not think he hit his head. Patient states he has been compliant taking lactulose and denies any hematochezia or melena. He did not take his lactulose today because he had to go to doctors appointment. Patient denies any chest pain but does have some upper abdominal pain that has been stable. Laboratory studies reveal white blood cell count of 29,000, hemoglobin 13.2, hematocrit 35.2, platelets 125, sodium 120, potassium 5.1, chloride 81, bicarb 7.2, BUN 146, creatinine 16, glucose 65, INR 22, total bilirubin 34, AST 285, ALT 145, albumin 2.4, lipase 271, hep A positive (12/04), hep B negative at that time, CT abdomen #1 cirrhotic liver with portal hypertension likely with large volume ascites, no gallstones, normal kidneys no biliary duct dilatation. Brain CT shows mild degree of atrophy. Right subclavian central venous line was placed in the emergency room and confirmed on chest x-ray. Per report Dr. Higgins at [facility] has accepted the patient for transfer however due to delay in transfer patient will be admitted to our ICU temporarily while bed transfer is pending. PFSH Medical History no medical history Home Medications ?Medication ?Instructions ?Recorded ?Last Taken ?Type famotidine 10 mg tablet (Acid 20 mg PO DAILY 12/02/24 12/29/24 History Controller) ondansetron HCl 4 mg tablet 4 mg PO Q8H nausea #3 tabs 12/04/24 Unknown Rx furosemide 20 mg tablet (Lasix) 40 mg PO QAM 12/29/24 12/29/24 History furosemide 40 mg tablet 40 mg PO DAILY 12/29/24 12/29/24 History lactulose 10 gram/15 mL oral 20 ml PO Q8H 12/29/24 Unknown History solution rifaximin 550 mg tablet (Xifaxan) 550 mg PO BID 12/29/24 12/29/24 History simethicone 80 mg chewable tablet 80 mg PO PRN 12/29/24 Unknown History (Gas Relief 80 (simethicone)) spironolactone 100 mg tablet 100 mg PO DAILY 12/29/24 12/29/24 History Allergy/AdvReac Type Severity Reaction Status Date / Time No Known Allergies Allergy Verified 12/29/24 11:06 Family History no significant family his Surgical History no surgical history Social History Smoking Status: Current every day smoker tobacco type: cigarettes alcohol intake: current alcohol intake frequency: a few times a week Alcohol type: beer ROS Constitutional Constitutional: Reports malaise and weakness; Denies chills or fever(s) Eyes Eyes: Denies blurry vision ENT HEENT: Denies abnormal hearing Respiratory/Chest Respiratory/Chest: Reports shortness of breath with exertion; Denies cough Gastrointestinal Gastrointestinal: Reports abdominal pain; Denies hematochezia or melena Genitourinary Genitourinary: Denies dysuria Musculoskeletal Musculoskeletal: Denies back pain Integumentary Integumentary: Reports jaundice Neurologic Neurologic: Reports weakness Vital Signs Vital Signs Vital Signs: 12/29/24 11:04 12/29/24 11:06 12/29/24 11:13 Temperature 94 F L 95.4 F L Temperature Source Temporal Temporal Pulse Rate 160 H 160 H Respiratory Rate 20 H 20 H Respiratory Effort Normal Non-Labored Respiratory Pattern Blood Pressure 92/79 92/79 Blood Pressure Mean 83 83 Blood Pressure Source Blood Pressure Position Blood Pressure Location Pulse Ox 98 98 Oxygen Delivery Method Room Air Room Air 12/29/24 12:03 12/29/24 12:06 12/29/24 13:00 Temperature 95.6 F L 95.3 F L Temperature Source Temporal Temporal Pulse Rate 57 L 56 L 57 L Respiratory Rate 20 H 18 Respiratory Effort Respiratory Pattern Blood Pressure 78/50 L 77/50 L Blood Pressure Mean 59 59 Blood Pressure Source Blood Pressure Position Blood Pressure Location Pulse Ox 97 98 Oxygen Delivery Method Room Air Room Air 12/29/24 13:56 12/29/24 14:00 12/29/24 15:00 Temperature 95.3 F L 95.4 F L Temperature Source Temporal Temporal Pulse Rate 59 L 58 L Respiratory Rate 18 18 Respiratory Effort Respiratory Pattern Blood Pressure 80/52 L 86/50 L 87/55 L Blood Pressure Mean 61 62 65 Blood Pressure Source Blood Pressure Position Blood Pressure Location Pulse Ox 98 98 Oxygen Delivery Method Room Air Room Air 12/29/24 15:05 12/29/24 16:00 12/29/24 16:56 Temperature 95.4 F L 91.3 F L Temperature Source Oral Rectal Pulse Rate 60 64 Respiratory Rate 16 19 H Respiratory Effort Respiratory Pattern Normal Blood Pressure 93/55 L Blood Pressure Mean 67 Blood Pressure Source Blood Pressure Position Blood Pressure Location Pulse Ox 98 Oxygen Delivery Method Room Air 12/29/24 17:00 12/29/24 18:00 12/29/24 19:00 Temperature 95.2 F L 95.2 F L 95.2 F L Temperature Source Temporal Temporal Temporal Pulse Rate 64 63 62 Respiratory Rate 16 18 17 Respiratory Effort Respiratory Pattern Blood Pressure 98/56 L 90/58 L 87/55 L Blood Pressure Mean 70 68 65 Blood Pressure Source Blood Pressure Position Blood Pressure Location Pulse Ox 97 97 97 Oxygen Delivery Method Room Air Room Air Room Air 12/29/24 19:29 12/29/24 19:56 12/29/24 19:58 Temperature 91.3 F L 91.3 F L 91.3 F L Temperature Source Rectal Rectal Rectal Pulse Rate 59 L 59 L Respiratory Rate 15 15 Respiratory Effort Respiratory Pattern Blood Pressure 87/58 L 87/58 L Blood Pressure Mean 67 67 Blood Pressure Source Blood Pressure Position Blood Pressure Location Pulse Ox 100 100 Oxygen Delivery Method Room Air Room Air 12/29/24 20:06 12/29/24 21:00 12/29/24 21:00 Temperature 92.2 F L 92.2 F L Temperature Source Rectal Rectal Pulse Rate 59 L 59 L 59 L Respiratory Rate 15 14 14 Respiratory Effort Respiratory Pattern Blood Pressure 84/54 L 99/63 99/63 Blood Pressure Mean 64 75 75 Blood Pressure Source Blood Pressure Position Blood Pressure Location Pulse Ox 99 97 97 Oxygen Delivery Method Room Air 12/29/24 22:00 12/29/24 23:00 12/30/24 00:00 Temperature 92.2 F L 92.2 F L 92.2 F L Temperature Source Rectal Rectal Rectal Pulse Rate 64 64 62 Respiratory Rate 16 17 20 H Respiratory Effort Respiratory Pattern Blood Pressure 80/46 L 79/52 L 73/49 L Blood Pressure Mean 57 61 57 Blood Pressure Source Blood Pressure Position Blood Pressure Location Pulse Ox 97 96 98 Oxygen Delivery Method Room Air Room Air Room Air 12/30/24 01:00 12/30/24 01:00 12/30/24 01:10 Temperature 94.0 F L 94.0 F L 94.0 F L Temperature Source Rectal Rectal Rectal Pulse Rate 89 89 81 Respiratory Rate 14 14 13 Respiratory Effort Respiratory Pattern Blood Pressure 80/52 L 80/52 L 80/52 L Blood Pressure Mean 61 61 61 Blood Pressure Source Monitor Blood Pressure Position Semi-Fowlers Blood Pressure Location Right Arm Pulse Ox 98 98 98 Oxygen Delivery Method Room Air Room Air Room Air 12/30/24 01:29 Temperature Temperature Source Pulse Rate 61 Respiratory Rate 16 Respiratory Effort Respiratory Pattern Blood Pressure 95/60 Blood Pressure Mean 71 Blood Pressure Source Blood Pressure Position Blood Pressure Location Pulse Ox 98 Oxygen Delivery Method Room Air Weight Weight: 166 lb 11.2 oz Body Mass Index (BMI) 25.3 Physical Exam Const alert General Appearance: cooperative Orientation / Consciousness: confused and lethargic HEENT normocephalic and head/scalp atraumatic HEENT Narrative: Pupils icteric Eyes PERRL Neck no lymphadenopathy Lymph Lymphatic: no lymphadenopathy noted Resp normal respiratory effort, normal air movement and clear to auscultation bilaterally Cardio regular rate, regular rhythm, S1 normal heart sound and S2 normal heart sound GI GI Narrative: Severe jaundice Auscultation: hypoactive bowel sounds Palpation: tender epigastric Extremity General Extremity: Negative for edema Skin Skin Narrative: Severe jaundice Neuro Neuro Narrative: Answers questions slowly and deliberately and follows commands Psych cooperative Mood & Affect: depressed and flat affect Results Lab / Micro Data 12/29/24 12:05 12/29/24 18:25 Labs: Laboratory Results - last 24 hr 12/29/24 12:05: WBC 29.0 H, RBC 3.58 L, Hgb 13.2, Hct 35.2 L, MCV 98.3 H, MCH 36.9 H, MCHC 37.5 H, RDW Std Deviation 50.1 H, RDW Coeff of Johnson 14.0, Plt Count 125 L, MPV 12.1 H, Immature Gran % (Auto) 0.700, Neut % (Auto) 92.7 H, Lymph % (Auto) 3.8 L, [place] % (Auto) 2.7, Eos % (Auto) 0.0, Baso % (Auto) 0.1, Absolute Neuts (auto) 26.8 H, Absolute Lymphs (auto) 1.10, Nucleated RBC % 0.1, PT 25.1 H, INR 2.2, Sodium 121 L, Potassium 6.3 H*, Chloride 80 L, Carbon Dioxide 9.0 L*, Anion Gap 33 H, BUN 145 H*, Creatinine 16.20 H*, Estim Creat Clear Calc 5.63 L*, Est GFR (MDRD) Non-Af 3 L, BUN/Creatinine Ratio 9.0 L, Glucose 70, Calcium 7.5 L, Total Bilirubin 34.00 H*, Direct Bilirubin 25.50 H, AST 285 H, ALT 145 H, Alkaline Phosphatase 243 H, Ammonia 52.2, Total Protein 4.9 L, Albumin 2.5 L, Globulin 2.4, Lipase 271 H 12/29/24 12:20: Potassium 5.2 H 12/29/24 13:10: Lactic Acid 1.6 12/29/24 13:38: Sodium 120 L, Potassium 6.6 H*, Chloride 81 L, Carbon Dioxide 7.2 L*, Anion Gap 32 H, BUN 146 H*, Creatinine 16.00 H*, Estim Creat Clear Calc 5.70 L*, Est GFR (MDRD) Non-Af 3 L, BUN/Creatinine Ratio 9.1 L, Glucose 65 L, Calcium 7.3 L, Phosphorus 17.0 H*, Albumin 2.4 L 12/29/24 16:08: POC Glucose 310 H 12/29/24 18:25: Potassium 5.1 Rhythm Strip Rhythm Strip: Sinus Rhythm Rate: 55 Ectopy: None Imaging Radiology Impression Brain CT 12/29/24 11:58 IMPRESSION: Mild degree of cerebral atrophy. Reading Location: [facility] Abdomen/Pelvis CT 12/29/24 13:28 IMPRESSION: Cirrhotic liver morphology. Fatty infiltration of the liver. Stigmata of portal hypertension including large volume ascites. Normal appearance of the kidneys. No collecting system dilation or calculus. Gallstones. No biliary ductal dilation. Reading Location: [facility] Assessment & Plan Assessment/Plan (1) Acute uremia: (2) Hypotension: (3) Leukocytosis: (4) Serum total bilirubin elevated: (5) Acute hyponatremia: (6) Acute hyperkalemia: (7) Acute renal failure: (8) Fatigue: (9) Jaundice: (10) Decompensated cirrhosis: (11) Acute alcoholic hepatitis: (12) Abnormal findings on diagnostic imaging of abdomen: PLAN: Plan 1 decompensated alcohol hepatitis/liver failure?admit patient to ICU, bed transfer to [facility] this is pending to Dr. Higgins as bed becomes available. Will get CBC CMP repeated in a.m. 2. Hyponatremia?IV normal saline at a rate of 125 cc/h and repeat CMP in a.m. continue lactulose and Xifaxan 3. Acute renal failure?if patient is to stay he will need dialysis and consult to nephrology. 4. Leukocytosis?secondary to above decompensated cirrhosis there is no fever at present time and will not start antibiotics 5. Hypotension?continue IV fluids and may need to add Levophed 6. CODE STATUS?discussed with spouse present and she was unsure of his wishes at this time therefore he will remain full code I was not convinced that the patient was alert enough to make decisions in his own best interest at this time. 7. Abnormal finding on diagnostic imaging of abdomen?recent MRI would suggest that it was not a neoplastic process that was seen on the CT scan next to the gallbladder. 8. DVT prophylaxis?SCDs Charges/Coding Visit Charges Inpatient E&M: 16108 Init Hosp L2
--- OUTSIDE RECORDS SUMMARY | 2024-12-30 02:17 | XMS RPT_ITS | CCD ---
Author Organization [facility] Care Team Providers Care Apprentice Technician Name Role Phone Keron CELL ATTENDANT HELPER.PODIATRY DOCTOR, [facility] Primary Care Provider KERON, CARMITA Referring Unavailable KERON, CARMITA Primary Care Unavailable KERON, CARMITA Referring Unavailable KERON, CARMITA Primary Care Unavailable Keron CELL ATTENDANT HELPER.PODIATRY DOCTOR, [facility] Primary Care Provider Keron CELL ATTENDANT HELPER.PODIATRY DOCTOR, [facility] Primary Care Provider Keron CELL ATTENDANT HELPER.PODIATRY DOCTOR, [facility] Primary Care Provider Unavailable Primary Care Provider Unavailserge Byers MD, Dr. Frank Primary Care Provider [phone] Modesta ISLAS, Dr. Frank Referring Provider Sameer Montero Attending Provider Dr. Taj Nieves MD Emergency Provider Keron MACHINE TOOL DESIGNER-C, Carmita Primary Care Provider Keron MACHINE TOOL DESIGNER-C, Carmita Referring Provider Marcial MACHINE TOOL DESIGNER-C, Maria Ines Attending Provider Marcial MACHINE TOOL DESIGNER-C, Maria Ines Referring Provider PIEDAD RIBEIRO Attending Unavailable Dr. Taj Nieves MD Attending Provider Francisco ISLAS, Brianna Unavailable BRIANNA SINGH Admitting Unavailable MELVI SHEIKH Attending Unavailable CELESTINE QUINN Referring Unavailable Taj Nieves Attending Unavailable Keron MACHINE TOOL DESIGNER, Carmita Primary Care Unavailable Ion Saavedra Attending Unavailable Keron MACHINE TOOL DESIGNER, [facility] Primary Care Unavailable Keron MACHINE TOOL DESIGNER, [facility] Primary Care Unavailable Maria Ines Ceja Attending Unavailable Maria Ines Ceja Referring Unavailable Keron MACHINE TOOL DESIGNER, [facility] Primary Care Unavailable Keron MACHINE TOOL DESIGNER, [facility] Referring Unavailable Maria Ines Ceja Attending Unavailable Modesta, Zac Primary Care Unavailable Zac Byers Referring Unavailable Sameer Montero Attending Unavailable Maria Ines Ceja Attending Unavailable [facility] MACHINE TOOL DESIGNER, Carmita Referring Unavailable Keron MACHINE TOOL DESIGNER, [facility] Primary Care Unavailable Keron MACHINE TOOL DESIGNER, [facility] Primary Care Unavailable Maria Ines Cjea Referring Unavailable Maria Ines Ceja Attending Unavailable Keron MACHINE TOOL DESIGNER, [facility] Primary Care Unavailable Maria Ines Ceja [...] Comment on above: Take 1 capsule by [facility] one time a week. famotidine 10 [...] the MR contrast administration guidelines link. lactulose 27829 mg powder for oral solution (5 sources) [...] Proton Pump Inhibitor Start: 12-09-2024 polymyxin b 63857 unt/ml / trimethoprim 1 mg/ml ophthalmic solution [...] Comment on above: [facility]. zinc acetate 50 mg oral capsule (7 sources) Start: 04-26-2023 take 1 capsule by mouth once daily Zinc Acetate, Oral, 50 mg (zinc) cap Take 1 capsule by mouth once daily. 90 capsule 04/26/2023 Active Start: 02-17-2022 take 1 capsule by [facility] once daily Zinc Acetate, Oral, 50 mg (zinc) cap Take 1 capsule by mouth once daily. 90 capsule 0 02/17/2022 Active Comment on above: Take 1 capsule by [facility] once daily. (1 source) Start: 2024 [...] on above: Take 2 tablets by mo [facility] once daily. calcium chloride 0.0014 meq/ml / [...] 05-09-2011 Chronic Unclassified (5 sources) Call the salt manager office tomorrow, Dr. Mckeon, tell them you [...] without Conto n 12-29-2024 Abdomen/Pelvis without Cont [facility] Imaging Services [address] [place] [address] Abdomen/Pelvis without Cont MR#: [id number] Acct: [id number] Name: JOSE PARKER Rep #: [id number] : 1980 M 44 From: Bebo Gonzalez MD PCP: Carmita Patrick, BRYN-Yovany Status: REG ER Study: Abdomen/Pelvis without Cont Date of Exam: 12/15 09/07 Exam# [id number] Ordering Dr: Roseline Norris DO PROCEDURE: ABDOMEN/PELVIS [...] Gallstones. No biliary ductal dilation. Reading Location: [id number] CC: RAJESH Patrick; Dr. Roseline Norris DO Weather Forecaster: Signed Normal [facility] Ammoniaon 12-29-2024 Ammonia (P) [Moles/Vol] 52.2 umol/L Normal 16-60 [facility] Comment on above: Performed By: #### L 500.4050, L501.2450, L100.0100 #### [facility] Laboratory [address] [place], [address] Basic Metabolic Profile (BMP )on 12-29-2024 BUN/CRE 9.0 RATIO Low 10-20 [facility] Comment on above: Performed By: #### L 100.0100, L500.3400, L501.2450, L500.2500 #### [facility] [address] [place], [address] Calcium [Mass/Vol] 7.5 mg/dL Low 7.6-11.0 [facility] Comment on above: Performed By: #### L 100.0100, L500.3400, L501.2450, L500.2500 #### [facility] [address] [place], [address] Chloride [Moles/Vol] 80 mmol/L Low 98-108 [facility] Comment on above: Performed By: #### L 100.0100, L500.3400, L501.2450, L500.2500 #### [facility] [address] [place], [address] CO2 [Moles/Vol] 9.0 mmol/L Invalid Interpretation Code 21.0-32.0 [facility] Comment on above: Result Comment: Crit ical Result(s) Called to: Елена RN (ER) by: Manish??Results read back by same. Performed By: #### L 100.0100, L500.3400, L501.2450, L500.2500 #### [facility] [address] [place], [address] Creatinine [Mass/Vol] 16.20 mg/dL Invalid Interpretation Code 0.70-1.20 [facility] Comment on above: Result Comment: Icte lilia present, Results may be affected. Critical Result(s) Called at: by:??Results read back by same. Critical Result(s) Called to: Елена MCPHERSON (ER) by: Manish??Results read back by same. Performed By: #### L 100.0100, L500.3400, L501.2450, L500.2500 #### [facility] [address] [place], [address] ECRCL 5.63 ml/min Invalid Interpretation Code 50-250 [facility] Comment on above: Performed By: #### L 100.0100, L500.3400, L501.2450, L500.2500 #### [facility] [address] [place], [address] GAP 33 High 5-15 [facility] Comment on above: Performed By: #### L 100.0100, L500.3400, L501.2450, L500.2500 #### [facility] [address] [place], [address] Glucose [Mass/Vol] 70 mg/dL Normal 70-99 [facility] Comment on above: Performed By: #### L 100.0100, L500.3400, L501.2450, L500.2500 #### [facility] [address] [place], [address] Potassium [Moles/Vol] 6.3 mmol/L Invalid Interpretation Code 3.3-5.1 [facility] Comment on above: Result Comment: Crit ical Result(s) Called at: by:??Results read back by same. Critical Result(s) Called to: Елена MCPHERSON (ER) by: Manish??Results read back by same. Performed By: #### L 100.0100, L500.3400, L501.2450, L500.2500 #### [facility] [address] [place], [address] Sodium [Moles/Vol] 121 mmol/L Low 133-145 [facility] Comment on above: Performed By: #### L 100.0100, L500.3400, L501.2450, L500.2500 #### [facility] [address] [place], [address] Urea nitrogen [Mass/Vol] 145 mg/dL Invalid Interpretation Code 4-19 [facility] Comment on above: Result Comment: Crit ical Result(s) Called to: Елена MCPHERSON (ER) by: Manish??Results read back by same. Performed By: #### L 100.0100, L500.3400, L501.2450, L500.2500 #### [facility] [address] [place], [address] Bedside Glucoseon 12-29-2024 FINGERSTICK GLU 310 mg/dL High 74-106 [facility] Comment on above: Result Comment: QIAN THOMAS OF PATIENT CARE PER NURSING PROTOCOL Performed By: #### L 500.4050, L501.2450, L100.0100 #### [facility] [address] [place], [address] Brain/Head without Contrasto n 12-29-2024 Brain/Head without Contrast [facility] Imaging Services [address] [place] [address] Brain/Head without Contrast MR#: [id number] Acct: [id number] Name: JOSE PARKER Rep #: [id number] : 1980 M 44 From: Loco colon MD PCP: RAJESH Redd Status: REG ER Study: Brain/Head without Contrast Date of Exam: 12/15 09/07 Exam# [id number] Ordering Dr: Roseline Norris DO PROCEDURE: BRAIN/HEAD WITHOUT CONTRAST 12/29/2024 [...] Mild degree of cerebral atrophy. Reading Location: [facility] CC: MACHINE TOOL DESIGNERAlok Patrick; Dr. Roseline Norris DO Weather Forecaster: Signed Normal [facility] CBC W/Diff, Automatedon 12-15 Absolute Lymph 1.10 X10 3/uL Normal 0.83-4.51 [facility] Comment on above: Performed By: #### L 100.0100, L500.3400, L501.2450, L500.2500 #### [facility] [address] [place], [address] Absolute Neut 26.8 X10 3/uL High 2.0-7.7 [facility] Comment on above: Performed By: #### L 100.0100, L500.3400, L501.2450, L500.2500 #### [facility] [address] [place], [address] Basophils/100 WBC (Bld) 0.1 % Normal 0-1 [facility] Comment on above: Performed By: #### L 100.0100, L500.3400, L501.2450, L500.2500 #### [facility] [address] [place], [address] Eosinophils/100 WBC (Bld) 0.0 % Normal 0-5 [facility] Comment on above: Performed By: #### L 100.0100, L500.3400, L501.2450, L500.2500 #### [facility] [address] [place], [address] Erythrocyte distribution width (RBC) [Ratio] 14.0 % Normal 11.6-14.6 [facility] Comment on above: Performed By: #### L 100.0100, L500.3400, L501.2450, L500.2500 #### [facility] [address] [place], [address] Hematocrit (Bld) [Volume fraction] 35.2 % Low 40-54 [facility] Comment on above: Performed By: #### L 100.0100, L500.3400, L501.2450, L500.2500 #### [facility] [address] [place], [address] Hemoglobin (Bld) [Mass/Vol] 13.2 g/dL Normal 13.0-16.5 [facility] Comment on above: Performed By: #### L 100.0100, L500.3400, L501.2450, L500.2500 #### [facility] [address] [place], [address] IG% 0.700 Normal 0.0-0.9 [facility] Comment on above: Result Comment: IG% - Immature Granulocytes (promyelocytes, myelocytes and metamyelocytes) > 1% indicates that a LEFT SHIFT is Present. Performed By: #### L 100.0100, L500.3400, L501.2450, L500.2500 #### [facility] [address] [place], [address] Lymphocytes/100 WBC (Bld) 3.8 % Low 19-41 [facility] Comment on above: Performed By: #### L 100.0100, L500.3400, L501.2450, L500.2500 #### [facility] [address] [place], [address] MCH (RBC) [Entitic mass] 36.9 pg High 27.0-32.0 [facility] Comment on above: Performed By: #### L 100.0100, L500.3400, L501.2450, L500.2500 #### [facility] [address] [place], [address] MCHC (RBC) [Mass/Vol] 37.5 g/dL High 32-36 [facility] Comment on above: Performed By: #### L 100.0100, L500.3400, L501.2450, L500.2500 #### [facility] [address] [place], [address] MCV (RBC) [Entitic vol] 98.3 fL High 80-94 [facility] Comment on above: Performed By: #### L 100.0100, L500.3400, L501.2450, L500.2500 #### [facility] [address] [place], [address] Monocytes/100 WBC (Bld) 2.7 % Normal 0-10 [facility] Comment on above: Performed By: #### L 100.0100, L500.3400, L501.2450, L500.2500 #### [facility] [address] [place], [address] Neutrophils/100 WBC (Bld) 92.7 % High 47-70 [facility] Comment on above: Performed By: #### L 100.0100, L500.3400, L501.2450, L500.2500 #### [facility] [address] [place], [address] Nucleated RBC (Bld) [#/Vol] 0.1 10*3/uL Normal 0-5 [facility] Comment on above: Performed By: #### L 100.0100, L500.3400, L501.2450, L500.2500 #### [facility] [address] [place], [address] Platelet mean volume (Bld) [Entitic vol] 12.1 fL High 6.2-12.0 [facility] Comment on above: Performed By: #### L 100.0100, L500.3400, L501.2450, L500.2500 #### [facility] [address] [place], [address] Platelets (Bld) [#/Vol] 125 10*3/uL Low 150-450 [facility] Comment on above: Performed By: #### L 100.0100, L500.3400, L501.2450, L500.2500 #### [facility] [address] [place], [address] RBC (Bld) [#/Vol] 3.58 10*6/uL Low 4.6-6.2 [facility] Comment on above: Performed By: #### L 100.0100, L500.3400, L501.2450, L500.2500 #### [facility] [address] [place], [address] RDW SD 50.1 fl High 35.1-43.9 [facility] Comment on above: Performed By: #### L 100.0100, L500.3400, L501.2450, L500.2500 #### [facility] [address] [place], [address] WBC (Bld) [#/Vol] 29.0 10*3/uL High 4.4-11.0 [facility] Comment on above: Performed By: #### L 100.0100, L500.3400, L501.2450, L500.2500 #### [facility] [address] [place], [address] Emergency Department Summary on 12-29-2024 Emergency Department Summary [facility] Medical Records Department [address] [place] [address] Emergency Department Summary 12/29/24 MR#: [id number] Acct: [id number] Name: JOSE PARKER Rep #: [id number] : 1980 44 From: Roseline Norris DO [...] 12/29/24 1713 Cosigner Signature (if applicable): cc: MACHINE TOOL DESIGNER-C Carmita Patrick * Signed HPI History of [...] complaints or concerns reported at this time. [facility] Medical History no medical history Home Medications [...] Oxygen Delivery (more content not included)... Normal [facility] Gastroenterology Visit Repor ton 12-29-2024 Gastroenterology Visit Report [facility] Gastroenterology [address] [place] [address] OFFICE VISIT Date of Service: 12/29/24 MR#: [id number] Acct: [id number] Name: JOSE PARKER Kt Rep #: [id number] : 1980 Provider: RAJESH bose Age/Sex: 44/M Location: [facility] Status: Signed Intake Vital Signs 12/04/24 10:35 [...] He was seen in the ED at [facility] on 12/02/2024 at which time labs were [...] transplant hepatologis (more content not included)... Normal [facility] Lactic Acidon 12-29-2024 Lactate [Moles/Vol] 1.6 mmol/L Normal 0.0-2.0 [facility] Comment on above: Order Comment: Y Result Comment: Icte lilia present, Results may be affected. Performed By: #### L 503.6005 #### [facility] [address] [facility] [address] Lipaseon 12-29-2024 Lipase [Catalytic activity/Vol] 271 U/L High 13-75 [facility] Comment on above: Result Comment: Christa zarate note: LIPASE revised reference range effective 22. New Lipase methodology. Expected to produce lower values than the previous assay method. NEW Reference Range: 13 - 75 U/L Performed By: #### L 100.0100, L500.3400, L501.2450, L500.2500 #### [facility] [address] [facility] [address] Liver Profileon 12-29-2024 Albumin [Mass/Vol] 2.5 g/dL Low 3.5-5.0 [facility] Comment on above: Performed By: #### L 100.0100, L500.3400, L501.2450, L500.2500 #### [facility] [address] [facility] [address] ALK PHOS 243 U/L High 40-129 [facility] Comment on above: Performed By: #### L 100.0100, L500.3400, L501.2450, L500.2500 #### [facility] [address] [place], [address] ALT [Catalytic activity/Vol] 145 U/L High <=46 [facility] Comment on above: Performed By: #### L 100.0100, L500.3400, L501.2450, L500.2500 #### [facility] [address] [place], [address] AST [Catalytic activity/Vol] 285 U/L High <=37 [facility] Comment on above: Performed By: #### L 100.0100, L500.3400, L501.2450, L500.2500 #### [facility] [address] [place], [address] Bilirubin [Mass/Vol] 34.00 mg/dL Invalid Interpretation Code 0.00-1.30 [facility] Comment on above: Result Comment: Call ed to: Елена MCPHERSON (ER) by: Manish Performed By: #### L 100.0100, L500.3400, L501.2450, L500.2500 #### [facility] [address] [place], [address] Bilirubin.direct [Mass/Vol] 25.50 mg/dL High 0.00-0.30 [facility] Comment on above: Performed By: #### L 100.0100, L500.3400, L501.2450, L500.2500 #### [facility] [address] [place], [address] Globulin (S) [Mass/Vol] 2.4 g/dL Normal 2.2-4.2 [facility] Comment on above: Performed By: #### L 100.0100, L500.3400, L501.2450, L500.2500 #### [facility] [address] [place], [address] T PROT 4.9 g/dL Low 5.9-8.4 [facility] Comment on above: Result Comment: Icte lilia present, Results may be affected. Performed By: #### L 100.0100, L500.3400, L501.2450, L500.2500 #### [facility] [address] [place], [address] Potassiumon 12-29-2024 Potassium [Moles/Vol] 5.1 mmol/L Normal 3.3-5.1 [facility] Comment on above: Performed By: #### L 501.5600 #### [facility] [address] [place], [address] Potassium [Moles/Vol] 5.2 mmol/L High 3.3-5.1 [facility] Comment on above: Performed By: #### L 500.4050, L501.2450, L100.0100 #### [facility] [address] [place], [address] Prothrombin Time w/INRon INR Coag (PPP) [Relative time] 2.2 {INR} Normal [facility] Comment on above: Performed By: #### L 500.4050, L501.2450, L100.0100 #### [facility] [address] [place], [address] PT Coag (PPP) [Time] 25.1 s High 11.7-14.9 [facility] Comment on above: Performed By: #### L 500.4050, L501.2450, L100.0100 #### [facility] [address] [place], [address] Renal Profileon 12-29-2024 Albumin [Mass/Vol] 2.4 g/dL Low 3.5-5.0 [facility] Comment on above: Performed By: #### L 500.3600 #### [facility] [address] [place], [address] BUN/CRE 9.1 RATIO Low 10-20 [facility] Comment on above: Performed By: #### L 500.3600 #### [facility] [address] [place], [address] Calcium [Mass/Vol] 7.3 mg/dL Low 7.6-11.0 [facility] Comment on above: Performed By: #### L 500.3600 #### [facility] [address] [place], [address] Chloride [Moles/Vol] 81 mmol/L Low 98-108 [facility] Comment on above: Performed By: #### L 500.3600 #### [facility] [address] [place], [address] CO2 [Moles/Vol] 7.2 mmol/L Invalid Interpretation Code 21.0-32.0 [facility] Comment on above: Result Comment: Crit ical Result(s) Called at: by:??Results read back by same. Performed By: #### L 500.3600 #### [facility] [address] [place], [address] Creatinine [Mass/Vol] 16.00 mg/dL Invalid Interpretation Code 0.70-1.20 [facility] Comment on above: Result Comment: Icte lilia present, Results may be affected. Critical Result(s) Called at: by:??Results read back by same. Critical Result(s) Called at: by:??Results read back by same. Performed By: #### L 500.3600 #### [facility] [address] [place], [address] ECRCL 5.70 ml/min Invalid Interpretation Code 50-250 [facility] Comment on above: Performed By: #### L 500.3600 #### [facility] [address] [place], [address] GAP 32 High 5-15 [facility] Comment on above: Performed By: #### L 500.3600 #### [facility] [address] [place], [address] Glucose [Mass/Vol] 65 mg/dL Low 70-99 [facility] Comment on above: Performed By: #### L 500.3600 #### [facility] [address] [place], [address] Phosphate [Mass/Vol] 17.0 mg/dL Invalid Interpretation Code 2.7-4.5 [facility] Comment on above: Result Comment: Crit ical Result(s) Called at: by:??Results read back by same. Critical Result(s) Called at: by:??Results read back by same. Performed By: #### L 500.3600 #### [facility] [address] [place], [address] Potassium [Moles/Vol] 6.6 mmol/L Invalid Interpretation Code 3.3-5.1 [facility] Comment on above: Result Comment: Hemo lysis present, Results??could be affected. ?? Critical Result(s) Called at: by:??Results read back by same. Critical Result(s) Called at: by:??Results read back by same. Performed By: #### L 500.3600 #### [facility] [address] [place], [address] Sodium [Moles/Vol] 120 mmol/L Low 133-145 [facility] Comment on above: Performed By: #### L 500.3600 #### [facility] [address] [place], [address] Urea nitrogen [Mass/Vol] 146 mg/dL Invalid Interpretation Code 4-19 [facility] Comment on above: Result Comment: Crit ical Result(s) Called at:1458 12/29/2024 by:??URSULA STONER Results read back by same. Performed By: #### L 500.3600 #### [facility] [address] [place], [place], [address] GFR/1.73 sq M.predicted among non-blacks MDRD (S/P/Bld) [Vol rate/Area] 3 mL/min/{1.73_m2} Low >60 [facility] Comment on above: Result Comment: mL/m in/1.73m2 CKD-EPI Creatinine Equation (2020) Performed By: #### L 500.3600 #### [facility] [address] [facility] [address] [place], [place], [address] Performed By: #### L 100.0100, L500.3400, L501.2450, L500.2500 #### [facility] [address] [place], [place], [id number] Basic metabolic 2000 panelon 12-12-2024 Anion gap [Moles/Vol] 12 mmol/L 10 - 2 0 mmol/L [facility] Calcium [Mass/Vol] 8.3 mg/dL Low 8.6 - 10. 6 mg/dL [facility] Chloride [Moles/Vol] 91 mmol/L Low 98 - 10 7 mmol/L [facility] CO2 [Moles/Vol] 32 mmol/L 21 - 32 mmol/L [facility] Creatinine [Mass/Vol] 0.81 mg/dL 0.50 - 1.30 mg/dL [facility] eGFR - PINF [facility] Glucose [Mass/Vol] 91 mg/dL 74 - 99 mg/dL [facility] Potassium [Moles/Vol] 3.9 mmol/L 3.5 - 5.3 mmol/L [facility] Sodium [Moles/Vol] 131 mmol/L Low 136 - 145 mmol/L [facility] Urea nitrogen [Mass/Vol] 12 mg/dL 6 - 23 mg/dL [facility] Anion gap [Moles/Vol] 12 mmol/L Normal 10-20 [facility] Comment on above: Performed By: #### 1 6362-6 #### ANA M Soler ([id number]) [facility] ([facility]) [address] [place] [address] Calcium [Mass/Vol] 8.3 mg/dL Low 8.6-10.6 [facility] Comment on above: Performed By: #### 1 6362-6 #### ANA M AVINA L ([id number]) [facility] ([facility]) [address] [place] [address] Chloride [Moles/Vol] 91 mmol/L Low 98-107 [facility] Comment on above: Performed By: #### 1 6362-6 #### ANA M AVINA L ([id number]) [facility] ([facility]) [address] [place] [address] CO2 [Moles/Vol] 32 mmol/L Normal 21-32 [facility] Comment on above: Performed By: #### 1 6362-6 #### ANA M AVINA L ([id number]) [facility] ([facility]) [address] [place] [address] Creatinine [Mass/Vol] 0.81 mg/dL Normal 0.50-1.30 [facility] Comment on above: Result Comment: CORNELIO VILLANUEVA ICTERUS DETECTED. The result may be falsely decreased due to icterus or other interferents. Clinical correlation is recommended. Repeat testing may be considered. Performed By: #### 1 6362-6 #### ANA M Soler ([id number]) [facility] ([facility]) [address] [place] [address] Glomerular filtration rate >90 Normal >[address] [facility] Comment on above: Result Comment: Calc ulations of estimated GFR are performed using the 2020 CKD-EPI Study Refit equation without the race variable for the IDMS-Traceable creatinine methods. https://jasn.asnjournals.org/content//ASN.00783 49885 Performed By: #### 1 6362-6 #### ANA M AVINA L ([id number]) [facility] ([facility]) [address] [place] [address] Glucose [Mass/Vol] 91 mg/dL Normal 74-99 [facility] Comment on above: Performed By: #### 1 6362-6 #### ANA M INMANER L ([id number]) [facility] ([facility]) [address] [place] [address] Potassium [Moles/Vol] 3.9 mmol/L Normal 3.5-5.3 [facility] Comment on above: Performed By: #### 1 6362-6 #### ANA M SCHULTZMOTZER L ([id number]) [facility] ([facility]) [address] [place] [address] Sodium [Moles/Vol] 131 mmol/L Low 136-145 [facility] Comment on above: Performed By: #### 1 6362-6 #### ANA M BROWNTZER L ([id number]) [facility] ([facility]) [address] [place] [address] Urea nitrogen [Mass/Vol] 12 mg/dL Normal 6-[address] [facility] Comment on above: Performed By: #### 1 6362-6 #### ANA M BROWNTZER L ([id number]) [facility] ([facility]) [address] [place] [address] 90010 CBC W Auto Differential pane l (Bld)on 12-12-2024 Basophils (Bld) [#/Vol] 0.04 10*3/uL [facility] Basophils/100 WBC (Bld) 0.2 % 0.0 - 2.0 % [facility] Eosinophils (Bld) [#/Vol] 0.01 10*3/uL [facility] Eosinophils/100 WBC (Bld) 0.0 % 0.0 - 6.0 % [facility] Erythrocyte distribution width (RBC) [Ratio] 17.8 % High 11.5 - 14.5 % [facility] Hematocrit (Bld) [Volume fraction] 39.9 % Low 41.0 - 52.0 % [facility] Hemoglobin (Bld) [Mass/Vol] 13.5 g/dL 13.5 - 17.5 g/dL [facility] Immature granulocytes (Bld) [#/Vol] 0.20 10*3/uL [facility] Immature granulocytes/100 WBC (Bld) 0.9 % 0.0 - 0.9 % [facility] Interpretation and review of laboratory results Abnormal [facility] Lymphocytes (Bld) [#/Vol] 1.79 10*3/uL [facility] Lymphocytes/100 WBC (Bld) 8.2 % 13.0 - 44.0 % [facility] MCH (RBC) [Entitic mass] 37.6 pg High 26.0 - 34.0 pg [facility] MCHC (RBC) [Mass/Vol] 33.8 g/dL 32.0 - 36.0 g/dL [facility] MCV (RBC) [Entitic vol] 111 fL High 80 - 100 fL [facility] Monocytes (Bld) [#/Vol] 1.62 10*3/uL High [facility] Monocytes/100 WBC (Bld) 7.5 % 2.0 - 10.0 % [facility] Neutrophils (Bld) [#/Vol] 18.05 10*3/uL High [facility] Neutrophils/100 WBC (Bld) 83.2 % 40.0 - 80.0 % [facility] Nucleated RBC/100 WBC (Bld) [Ratio] 0.0 % [facility] Platelets (Bld) [#/Vol] 223 10*3/uL [facility] RBC (Bld) [#/Vol] 3.59 10*6/uL Low [facility] WBC (Bld) [#/Vol] 21.7 10*3/uL High [facility] Basophils (Bld) [#/Vol] 0.04 x10*3/uL Normal 0.00-0.[address] [facility] Comment on above: Performed By: #### 1 6362-6 #### ANA M Soler ([id number]) [facility] ([facility]) [address] [place] [address] Basophils/100 WBC (Bld) 0.2 % Normal 0.0-2.[address] [facility] Comment on above: Performed By: #### 1 6362-6 #### ANA M Soler ([id number]) [facility] ([facility]) [address] [place] [address]117 Eosinophils (Bld) [#/Vol] 0.01 x10*3/uL Normal 0.00-0.[address] [facility] Comment on above: Performed By: #### 1 6362-6 #### ANA M Soler ([id number]) [facility] ([facility]) [address] [place] [address] 98387 Eosinophils/100 WBC (Bld) 0.0 % Normal 0.0-6.[address] [facility] Comment on above: Performed By: #### 1 6362-6 #### ANA M Soler ([id number]) [facility] ([facility]) [address] [place] [address] 62315 Erythrocyte distribution width (RBC) [Ratio] 17.8 % High 11.5-14.[address] [facility] Comment on above: Performed By: #### 1 6362-6 #### ANA M Soler ([id number]) [facility] ([facility]) [address] [place] [address] 19008 Hematocrit (Bld) [Volume fraction] 39.9 % Low 41.0-52.[address] [facility] Comment on above: Performed By: #### 1 6362-6 #### ANA M Soler ([id number]) [facility] ([facility]) [address] [place] [address] 82474 Hemoglobin (Bld) [Mass/Vol] 13.5 g/dL Normal 13.5-17.[address] [facility] Comment on above: Performed By: #### 1 6362-6 #### ANA M Soler ([id number]) [facility] ([facility]) [address] [place] [address] 81165 Immature granulocytes (Bld) [#/Vol] 0.20 x10*3/uL Normal 0.00-0.[address] [facility] Comment on above: Performed By: #### 1 6362-6 #### ANA M Soler ([id number]) [facility] ([facility]) [address] [place] [address] Immature granulocytes/100 WBC (Bld) 0.9 % Normal 0.0-0.[address] [facility] Comment on above: Result Comment: Johanna ture Granulocyte Count (IG) includes promyelocytes, myelocytes and metamyelocytes but does not include bands. Percent differential counts (%) should be interpreted in the context of the absolute cell counts (cells/UL). Performed By: #### 1 6362-6 #### ANA M Soler ([id number]) [facility] ([facility]) [address] [place] [address]88 Lymphocytes (Bld) [#/Vol] 1.79 x10*3/uL Normal 1.20-4.[address] [facility] Comment on above: Performed By: #### 1 6362-6 #### ANA M Soler ([id number]) [facility] ([facility]) [address] [place] [address] 83313 Lymphocytes/100 WBC (Bld) 8.2 % Normal 13.0-44.[address] [facility] Comment on above: Performed By: #### 1 6362-6 #### ANA M Soler ([id number]) [facility] ([facility]) [address] [place] [address] 50235 MCH (RBC) [Entitic mass] 37.6 pg High 26.0-34.[address] [facility] Comment on above: Performed By: #### 1 6362-6 #### ANA M Soler ([id number]) [facility] ([facility]) [address] [place] [address] 77501 MCHC (RBC) [Mass/Vol] 33.8 g/dL Normal 32.0-36.0 [facility] Comment on above: Performed By: #### 1 6362-6 #### ANA M Soler ([id number]) [facility] ([facility]) [address] [place] [address] 60850 MCV (RBC) [Entitic vol] 111 fL High 80-[address] [facility] Comment on above: Performed By: #### 1 6362-6 #### ANA M Soler ([id number]) [facility] ([facility]) [address] [place] [address] Monocytes (Bld) [#/Vol] 1.62 x10*3/uL High 0.10-1.[address] [facility] Comment on above: Performed By: #### 1 6362-6 #### ANA M Soler ([id number]) [facility] ([facility]) [address] [place] [address] 04016 Monocytes/100 WBC (Bld) 7.5 % Normal 2.0-10.[address] [facility] Comment on above: Performed By: #### 1 6362-6 #### ANA M Soler ([id number]) [facility] ([facility]) [address] [place] [address] 51700 Neutrophils (Bld) [#/Vol] 18.05 x10*3/uL High 1.20-7.[address] [facility] Comment on above: Result Comment: Perc ent differential counts (%) should be interpreted in the context of the absolute cell counts (cells/uL). Performed By: #### 1 6362-6 #### ANA M Soler ([id number]) [facility] ([facility]) [address] [place] [address] 55370 Neutrophils/100 WBC (Bld) 83.2 % Normal 40.0-80.[address] [facility] Comment on above: Performed By: #### 1 6362-6 #### ANA M Soler ([id number]) [facility] ([facility]) [address] [place] [address] 54601 Nucleated RBC/100 WBC (Bld) [Ratio] 0.0 /100 WBCs Normal 0.0-0.[address] [facility] Comment on above: Performed By: #### 1 6362-6 #### ANA M Soler ([id number]) [facility] ([facility]) [address] [place] [address] 17412 Platelets (Bld) [#/Vol] 223 x10*3/uL Normal 150-[address] [facility] Comment on above: Performed By: #### 1 6362-6 #### ANA M Soler ([id number]) [facility] ([facility]) [address] [place] [address] 89006 RBC (Bld) [#/Vol] 3.59 x10*6/uL Low 4.50-5.90 [facility] Comment on above: Performed By: #### 1 6362-6 #### ANA M Soler ([id number]) [facility] ([facility]) [address] [place] [address] 73538 WBC (Bld) [#/Vol] 21.7 x10*3/uL High 4.4-11.3 [facility] Comment on above: Performed By: #### 1 6362-6 #### ANA M Soler ([id number]) [facility] ([facility]) [address] [place] [address] 74684 Glucose Test strip manual (B ld) [Mass/Vol]on 12-12-2024 Glucose [Mass/Vol] 98 mg/dL 74 - 99 mg/dL [facility] Interpretation and review of laboratory results Normal [facility] Glucose [Mass/Vol] 98 mg/dL Normal 74-99 [facility] Comment on above: Performed By: #### 1 6362-6 #### ANA M Soler ([id number]) [facility] ([facility]) [address] [place] [address] 10776 Glucose [Mass/Vol] 94 mg/dL 74 - 99 mg/dL [facility] Interpretation and review of laboratory results Normal [facility] Glucose [Mass/Vol] 94 mg/dL Normal 74-99 [facility] Comment on above: Performed By: #### 1 6362-6 #### ANA M Soler ([id number]) [facility] ([facility]) [address] [place] [address] 35262 Hepatic function 2000 panelo n 12-12-2024 Albumin BCP dye [Mass/Vol] 2.8 g/dL Low 3.4 - 5.0 g/dL [facility] ALP [Catalytic activity/Vol] 144 U/L High 33 - 120 U/L [facility] ALT With P-5'-P [Catalytic activity/Vol] 77 U/L High 10 - 52 U/L [facility] AST With P-5'-P [Catalytic activity/Vol] 137 U/L High 9 - 39 U/L [facility] Bilirubin [Mass/Vol] 23.6 mg/dL High 0.0 - 1 .2 mg/dL [facility] Bilirubin.direct [Mass/Vol] 15.9 mg/dL High 0.0 - 0.3 mg/dL [facility] Interpretation and review of laboratory results Abnormal [facility] Protein [Mass/Vol] 5.0 g/dL Low 6.4 - 8.2 g/dL [facility] Albumin BCP dye [Mass/Vol] 2.8 g/dL Low 3.4-5.[address] [facility] Comment on above: Performed By: #### 1 6362-6 #### ANA M Soler ([id number]) [facility] ([facility]) [address] [place] [address] 09317 ALP [Catalytic activity/Vol] 144 U/L High 33-[address] [facility] Comment on above: Result Comment: CORNELIO VILLANUEVA ICTERUS DETECTED. The result may be falsely elevated due to icterus or other interferents. Clinical correlation is recommended. Repeat testing may be considered. Performed By: #### 1 6362-6 #### ANA M Soler ([id number]) [facility] ([facility]) [address] [place] [address] 96360 ALT With P-5'-P [Catalytic activity/Vol] 77 U/L High 10-[address] [facility] Comment on above: Result Comment: Kala ents treated with Sulfasalazine may generate falsely decreased results for ALT. Performed By: #### 1 6362-6 #### ANA M Soler ([id number]) [facility] ([facility]) [address] [place] [address] AST With P-5'-P [Catalytic activity/Vol] 137 U/L High 9-[address] [facility] Comment on above: Performed By: #### 1 6362-6 #### ANA M Soler ([id number]) [facility] ([facility]) [address] [place] [address] 65616 Bilirubin [Mass/Vol] 23.6 mg/dL High 0.0-1.2 [facility] Comment on above: Performed By: #### 1 6362-6 #### ANA M Soler ([id number]) [facility] ([facility]) [address] [place] [address] 72158 Bilirubin.direct [Mass/Vol] 15.9 mg/dL High 0.0-0.[address] [facility] Comment on above: Performed By: #### 1 6362-6 #### ANA M Soler ([id number]) [facility] ([facility]) [address] [place] [address] 05356 Protein [Mass/Vol] 5.0 g/dL Low 6.4-8.2 [facility] Comment on above: Performed By: #### 1 6362-6 #### ANA M Soler ([id number]) [facility] ([facility]) [address] [place] [address] 11097 Magnesiumon 12-12-2024 Magnesium [Mass/Vol] 2.53 mg/dL High 1.60 - 2.40 mg/dL [facility] Magnesium [Mass/Vol] 2.53 mg/dL High 1.60-2.40 [facility] Comment on above: Result Comment: CORNELIO VILLANUEVA ICTERUS DETECTED. The result may be falsely elevated due to icterus or other interferents. Clinical correlation is recommended. Repeat testing may be considered. Performed By: #### 1 6362-6 #### ANA M Soler ([id number]) [facility] ([facility]) [address] [place], [place] [address] No Panel Informationon 12-12 Interpretation and review of laboratory results Abnormal [facility] PT and aPTT panel Coag (PPP) on 12-12-2024 aPTT Coag (PPP) [Time] 27 s Un [facility] INR Coag (PPP) [Relative time] 1.6 {INR} High 0.9 - 1.1 [facility] Interpretation and review of laboratory results Abnormal [facility] PT Coag (PPP) [Time] 17.2 s High [facility] aPTT Coag (PPP) [Time] 27 s Normal 26-36 [facility] Comment on above: Order Comment: The A PTT is no longer used for monitoring Unfractionated Heparin Therapy. For monitoring Heparin Therapy, use the Heparin Assay. Performed By: #### 1 6362-6 #### ANA M Soler ([id number]) [facility] ([facility]) [address] [place] [address] 29970 INR Coag (PPP) [Relative time] 1.6 High 0.9-1.[address] [facility] Comment on above: Order Comment: The A PTT is no longer used for monitoring Unfractionated Heparin Therapy. For monitoring Heparin Therapy, use the Heparin Assay. Performed By: #### 1 6362-6 #### ANA M Soler ([id number]) [facility] ([facility]) [address] [place] [address] 26142 PT Coag (PPP) [Time] 17.2 s High 9.8-12.4 [facility] Comment on above: Order Comment: The A PTT is no longer used for monitoring Unfractionated Heparin Therapy. For monitoring Heparin Therapy, use the Heparin Assay. Performed By: #### 1 6362-6 #### ANA M Soler ([id number]) [facility] ([facility]) [address] [place] [address] 47681 Phosphateon 12-12-2024 Phosphate [Mass/Vol] 2.4 mg/dL Low 2.5-4.9 [facility] Comment on above: Performed By: #### 1 6362-6 #### ANA M Soler ([id number]) [facility] ([facility]) [address] [place] [address] 78970 Phosphoruson 12-12-2024 Phosphate [Mass/Vol] 2.4 mg/dL Low 2.5 - 4 .9 mg/dL [facility] Alpha 1 antitrypsin phenotyp ing [Interp]on 12-11-2024 Alpha 1 antitrypsin [Mass/Vol] 257 mg/dL High 90 - 200 mg/dL [facility] Interpretation and review of laboratory results Abnormal [facility] Alpha-1 Antitrypsin Phenotyp jennifer 12-11-2024 Alpha 1 antitrypsin phenotyping [Interp] MM [facility] Basic metabolic 2000 panelon 12-11-2024 Anion gap [Moles/Vol] 14 mmol/L 10 - 2 0 mmol/L [facility] Calcium [Mass/Vol] 8.4 mg/dL Low 8.6 - 10. 6 mg/dL [facility] Chloride [Moles/Vol] 91 mmol/L Low 98 - 10 7 mmol/L [facility] CO2 [Moles/Vol] 32 mmol/L 21 - 32 mmol/L [facility] Creatinine [Mass/Vol] 0.75 mg/dL 0.50 - 1.30 mg/dL [facility] eGFR - PINF [facility] Glucose [Mass/Vol] 72 mg/dL Low 74 - 99 mg/dL [facility] Interpretation and review of laboratory results Abnormal [facility] Potassium [Moles/Vol] 3.6 mmol/L 3.5 - 5.3 mmol/L [facility] Sodium [Moles/Vol] 133 mmol/L Low 136 - 145 mmol/L [facility] Urea nitrogen [Mass/Vol] 12 mg/dL 6 - 23 mg/dL [facility] Anion gap [Moles/Vol] 14 mmol/L Normal 10-20 [facility] Comment on above: Performed By: #### 1 6362-6 #### ANA M Soler ([id number]) [facility] ([facility]) [address] [place] [address] Calcium [Mass/Vol] 8.4 mg/dL Low 8.6-10.6 [facility] Comment on above: Performed By: #### 1 6362-6 #### ANA M BROWNTZER L ([id number]) [facility] ([facility]) [address] [place] [address] Chloride [Moles/Vol] 91 mmol/L Low 98-107 [facility] Comment on above: Performed By: #### 1 6362-6 #### ANA M SCHULTZMOTZER L ([id number]) [facility] ([facility]) [address] [place] [address] CO2 [Moles/Vol] 32 mmol/L Normal 21-32 [facility] Comment on above: Performed By: #### 1 6362-6 #### ANA M SCHULTZMOTZER L ([id number]) [facility] ([facility]) [address] [place] [address] Creatinine [Mass/Vol] 0.75 mg/dL Normal 0.50-1.30 [facility] Comment on above: Result Comment: CORNELIO VILLANUEVA ICTERUS DETECTED. The result may be falsely decreased due to icterus or other interferents. Clinical correlation is recommended. Repeat testing may be considered. Performed By: #### 1 6362-6 #### ANA M INMANER L ([id number]) [facility] ([facility]) [id number] [place] [address] 61597 Glomerular filtration rate >90 Normal >[address] [facility] Comment on above: Result Comment: Calc ulations of estimated GFR are performed using the 2020 CKD-EPI Study Refit equation without the race variable for the IDMS-Traceable creatinine methods. https://jasn.asnjournals.org/content/early//ASN.50195 37094 Performed By: #### 1 6362-6 #### ANA M SCHULTZMOTZER L ([id number]) [facility] ([facility]) [address] [place] [address] Glucose [Mass/Vol] 72 mg/dL Low 74-99 [facility] Comment on above: Performed By: #### 1 6362-6 #### ANA M SCHULTZMOTZER L ([id number]) [facility] ([facility]) [address] [place] [address] Potassium [Moles/Vol] 3.6 mmol/L Normal 3.5-5.3 [facility] Comment on above: Performed By: #### 1 6362-6 #### ANA M AVINA L ([id number]) [facility] ([facility]) [address] [place] [address] Sodium [Moles/Vol] 133 mmol/L Low 136-145 [facility] Comment on above: Performed By: #### 1 6362-6 #### ANA M AVINA L ([id number]) [facility] ([facility]) [address] [place] [address] Urea nitrogen [Mass/Vol] 12 mg/dL Normal 6-[address] [facility] Comment on above: Performed By: #### 1 6362-6 #### ANA M AVINA L ([id number]) [facility] ([facility]) [address] [place] [address] CBC W Auto Differential pane l (Bld)on 12-11-2024 Basophils (Bld) [#/Vol] 0.06 10*3/uL [facility] Basophils/100 WBC (Bld) 0.3 % 0.0 - 2.0 % [facility] Eosinophils (Bld) [#/Vol] 0.01 10*3/uL [facility] Eosinophils/100 WBC (Bld) 0.1 % 0.0 - 6.0 % [facility] Erythrocyte distribution width (RBC) [Ratio] 18.3 % High 11.5 - 14.5 % [facility] Hematocrit (Bld) [Volume fraction] 39.3 % Low 41.0 - 52.0 % [facility] Hemoglobin (Bld) [Mass/Vol] 13.4 g/dL Low 13.5 - 17.5 g/dL [facility] Immature granulocytes (Bld) [#/Vol] 0.25 10*3/uL [facility] Immature granulocytes/100 WBC (Bld) 1.4 % High 0.0 - 0.9 % [facility] Interpretation and review of laboratory results Abnormal [facility] Lymphocytes (Bld) [#/Vol] 1.87 10*3/uL [facility] Lymphocytes/100 WBC (Bld) 10.3 % 13.0 - 44.0 % [facility] MCH (RBC) [Entitic mass] 37.9 pg High 26.0 - 34.0 pg [facility] MCHC (RBC) [Mass/Vol] 34.1 g/dL 32.0 - 36.0 g/dL [facility] MCV (RBC) [Entitic vol] 111 fL High 80 - 100 fL [facility] Monocytes (Bld) [#/Vol] 1.94 10*3/uL [facility] Monocytes/100 WBC (Bld) 10.6 % 2.0 - 10.0 % [facility] Neutrophils (Bld) [#/Vol] 14.09 10*3/uL [facility] Neutrophils/100 WBC (Bld) 77.3 % 40.0 - 80.0 % [facility] Nucleated RBC/100 WBC (Bld) [Ratio] 0.1 % High [facility] Platelets (Bld) [#/Vol] 216 10*3/uL [facility] RBC (Bld) [#/Vol] 3.54 10*6/uL Low [facility] WBC (Bld) [#/Vol] 18.2 10*3/uL High [facility] Basophils (Bld) [#/Vol] 0.06 x10*3/uL Normal 0.00-0.[address] [facility] Comment on above: Performed By: #### 1 6362-6 #### ANA M Soler ([id number]) [facility] ([facility]) [address] [place] [address] Basophils/100 WBC (Bld) 0.3 % Normal 0.0-2.[address] [facility] Comment on above: Performed By: #### 1 6362-6 #### ANA M Soler ([id number]) [facility] ([facility]) [address] [place] [address] Eosinophils (Bld) [#/Vol] 0.01 x10*3/uL Normal 0.00-0.[address] [facility] Comment on above: Performed By: #### 1 6362-6 #### ANA M Soler ([id number]) [facility] ([facility]) [address] [place] [address] Eosinophils/100 WBC (Bld) 0.1 % Normal 0.0-6.[address] [facility] Comment on above: Performed By: #### 1 6362-6 #### ANA M Soler ([id number]) [facility] ([facility]) [address] [place] [address]8027 Erythrocyte distribution width (RBC) [Ratio] 18.3 % High 11.5-14.[address] [facility] Comment on above: Performed By: #### 1 6362-6 #### ANA M Soler ([id number]) [facility] ([facility]) [address] [place] [address] 96223 Hematocrit (Bld) [Volume fraction] 39.3 % Low 41.0-52.[address] [facility] Comment on above: Performed By: #### 1 6362-6 #### ANA M Soler ([id number]) [facility] ([facility]) [address] [place] [address] 98777 Hemoglobin (Bld) [Mass/Vol] 13.4 g/dL Low 13.5-17.[address] [facility] Comment on above: Performed By: #### 1 6362-6 #### ANA M Soler ([id number]) [facility] ([facility]) [address] [place] [address]47 Immature granulocytes (Bld) [#/Vol] 0.25 x10*3/uL Normal 0.00-0.[address] [facility] Comment on above: Performed By: #### 1 6362-6 #### ANA M Soler ([id number]) [facility] ([facility]) [address] [place] [address] 13603 Immature granulocytes/100 WBC (Bld) 1.4 % High 0.0-0.[address] [facility] Comment on above: Result Comment: Johanna ture Granulocyte Count (IG) includes promyelocytes, myelocytes and metamyelocytes but does not include bands. Percent differential counts (%) should be interpreted in the context of the absolute cell counts (cells/UL). Performed By: #### 1 6362-6 #### ANA M Soler ([id number]) [facility] ([facility]) [address] [place] [address] Lymphocytes (Bld) [#/Vol] 1.87 x10*3/uL Normal 1.20-4.[address] [facility] Comment on above: Performed By: #### 1 6362-6 #### ANA M Soler ([id number]) [facility] ([facility]) [address] [place] [address] Lymphocytes/100 WBC (Bld) 10.3 % Normal 13.0-44.[address] [facility] Comment on above: Performed By: #### 1 6362-6 #### ANA M Soler ([id number]) [facility] ([facility]) [address] [place] [address] MCH (RBC) [Entitic mass] 37.9 pg High 26.0-34.[address] [facility] Comment on above: Performed By: #### 1 6362-6 #### ANA M Soler ([id number]) [facility] ([facility]) [address] [place] [address] MCHC (RBC) [Mass/Vol] 34.1 g/dL Normal 32.0-36.0 [facility] Comment on above: Performed By: #### 1 6362-6 #### ANA M Soler ([id number]) [facility] ([facility]) [address] [place] [address] MCV (RBC) [Entitic vol] 111 fL High 80-[address] [facility] Comment on above: Performed By: #### 1 6362-6 #### ANA M Soler ([id number]) [facility] ([facility]) [address] [place] [address] Monocytes (Bld) [#/Vol] 1.94 x10*3/uL High 0.10-1.[address] [facility] Comment on above: Performed By: #### 1 6362-6 #### ANA M Soler ([id number]) [facility] ([facility]) [address] [place] [address] Monocytes/100 WBC (Bld) 10.6 % Normal 2.0-10.[address] [facility] Comment on above: Performed By: #### 1 6362-6 #### ANA M Soler ([id number]) [facility] ([facility]) [address] [place] [address] Neutrophils (Bld) [#/Vol] 14.09 x10*3/uL High 1.20-7.[address] [facility] Comment on above: Result Comment: Perc ent differential counts (%) should be interpreted in the context of the absolute cell counts (cells/uL). Performed By: #### 1 6362-6 #### ANA M Soler ([id number]) [facility] ([facility]) [address] [place] [address]81 Neutrophils/100 WBC (Bld) 77.3 % Normal 40.0-80.[address] [facility] Comment on above: Performed By: #### 1 6362-6 #### ANA M Soler ([id number]) [facility] ([facility]) [address] [place] [address] 13[address] Nucleated RBC/100 WBC (Bld) [Ratio] 0.1 /100 WBCs High 0.0-0.[address] [facility] Comment on above: Performed By: #### 1 6362-6 #### ANA M Soler ([id number]) [facility] ([facility]) [address] [place] [address] Platelets (Bld) [#/Vol] 216 x10*3/uL Normal 150-[address] [facility] Comment on above: Performed By: #### 1 6362-6 #### ANA M Soler ([id number]) [facility] ([facility]) [address] [place] [address] RBC (Bld) [#/Vol] 3.54 x10*6/uL Low 4.50-5.90 [facility] Comment on above: Performed By: #### 1 6362-6 #### ANA M Soler ([id number]) [facility] ([facility]) [address] [place] [address] WBC (Bld) [#/Vol] 18.2 x10*3/uL High 4.4-11.3 [facility] Comment on above: Performed By: #### 1 6362-6 #### ANA M Soler ([id number]) [facility] ([facility]) [address] [place] [address] 26273 Cobalamin (Vitamin B12) [Mas s/Vol]on 12-11-2024 Interpretation and review of laboratory results Normal [facility] Cobalaminson 12-11-2024 Cobalamin (Vitamin B12) [Mass/Vol] 859 pg/mL Normal 211-[address] [facility] Comment on above: Performed By: #### 1 6362-6 #### ANA M Soler ([id number]) [facility] ([facility]) [address] [place] [address] 30067 Folateon 12-11-2024 Folate [Mass/Vol] 12.9 ng/mL 5.0 - PINF ng/mL [facility] Folate [Mass/Vol] 12.9 ng/mL Normal >5.0 [facility] Comment on above: Order Comment: Low < 3.4Borderline 3.4-5.0Normal >5.0Patients receiving more than 5 mg/day of biotin may have interference in test results. A sample should be taken no sooner than eight hours after previous dose. Contact the testing laboratory for additional information. Performed By: #### 1 6362-6 #### ANA M Soler ([id number]) [facility] ([facility]) [address] [place] [address] 97021 Folate [Mass/Vol]on 12-12-19 Interpretation and review of laboratory results Normal [facility] Glucose Test strip manual (B ld) [Mass/Vol]on 12-11-2024 Glucose [Mass/Vol] 116 mg/dL High 74 - 99 mg/dL [facility] Interpretation and review of laboratory results Abnormal [facility] Glucose [Mass/Vol] 116 mg/dL High 74-99 [facility] Comment on above: Performed By: #### 1 6362-6 #### ANA M Soler ([id number]) [facility] ([facility]) [address] [place] [address] 93787 Glucose [Mass/Vol] 141 mg/dL High 74 - 99 mg/dL [facility] Interpretation and review of laboratory results Abnormal [facility] Glucose [Mass/Vol] 141 mg/dL High 74-99 [facility] Comment on above: Performed By: #### 1 6362-6 #### ANA M Soler ([id number]) [facility] ([facility]) [address] [place] [address] 59352 Glucose [Mass/Vol] 113 mg/dL High 74 - 99 mg/dL [facility] Interpretation and review of laboratory results Abnormal [facility] Glucose [Mass/Vol] 113 mg/dL High 74-99 [facility] Comment on above: Performed By: #### 1 6362-6 #### ANA M Soler ([id number]) [facility] ([facility]) [address] [place] [address] 75409 Glucose [Mass/Vol] 77 mg/dL 74 - 99 mg/dL [facility] Interpretation and review of laboratory results Normal [facility] Glucose [Mass/Vol] 77 mg/dL Normal 74-99 [facility] Comment on above: Performed By: #### 1 6362-6 #### ANA M Soler ([id number]) [facility] ([facility]) [address] [place] [address] 57905 Hepatic function 2000 panelo n 12-11-2024 Albumin BCP dye [Mass/Vol] 3.0 g/dL Low 3.4 - 5.0 g/dL [facility] ALP [Catalytic activity/Vol] 164 U/L High 33 - 120 U/L [facility] ALT With P-5'-P [Catalytic activity/Vol] 74 U/L High 10 - 52 U/L [facility] AST With P-5'-P [Catalytic activity/Vol] 134 U/L High 9 - 39 U/L [facility] Bilirubin [Mass/Vol] 22.9 mg/dL High 0.0 - 1 .2 mg/dL [facility] Bilirubin.direct [Mass/Vol] 14.7 mg/dL High 0.0 - 0.3 mg/dL [facility] Interpretation and review of laboratory results Abnormal [facility] Protein [Mass/Vol] 5.4 g/dL Low 6.4 - 8.2 g/dL [facility] Albumin BCP dye [Mass/Vol] 3.0 g/dL Low 3.4-5.[address] [facility] Comment on above: Performed By: #### 1 6362-6 #### ANA M Soler ([id number]) [facility] ([facility]) [address] [place] [address] 65714 ALP [Catalytic activity/Vol] 164 U/L High 33-[address] [facility] Comment on above: Result Comment: CORNELIO VILLANUEVA ICTERUS DETECTED. The result may be falsely elevated due to icterus or other interferents. Clinical correlation is recommended. Repeat testing may be considered. Performed By: #### 1 6362-6 #### ANA M Soler ([id number]) [facility] ([facility]) [id number] [place] [address] 72764 ALT With P-5'-P [Catalytic activity/Vol] 74 U/L High 10-[address] [facility] Comment on above: Result Comment: Kala ents treated with Sulfasalazine may generate falsely decreased results for ALT. Performed By: #### 1 6362-6 #### ANA M Soler ([id number]) [facility] ([facility]) [address] [place] [address] 74641 AST With P-5'-P [Catalytic activity/Vol] 134 U/L High 9-[address] [facility] Comment on above: Performed By: #### 1 6362-6 #### ANA M Soler ([id number]) [facility] ([facility]) [address] [place], [place] [address] Bilirubin [Mass/Vol] 22.9 mg/dL High 0.0-1.2 [facility] Comment on above: Performed By: #### 1 6362-6 #### ANA M Soler ([id number]) [facility] ([facility]) [address] [place] [address] 78710 Bilirubin.direct [Mass/Vol] 14.7 mg/dL High 0.0-0.[address] [facility] Comment on above: Performed By: #### 1 6362-6 #### ANA M Soler ([id number]) [facility] ([facility]) [address] [place] [address] Protein [Mass/Vol] 5.4 g/dL Low 6.4-8.2 [facility] Comment on above: Performed By: #### 1 6362-6 #### ANA M Soler ([id number]) [facility] ([facility]) [address] [place] [address] Magnesiumon 12-11-2024 Magnesium [Mass/Vol] 2.50 mg/dL High 1.60 - 2.40 mg/dL [facility] Magnesium [Mass/Vol] 2.50 mg/dL High 1.60-2.40 [facility] Comment on above: Result Comment: CORNELIO VILLANUEVA ICTERUS DETECTED. The result may be falsely elevated due to icterus or other interferents. Clinical correlation is recommended. Repeat testing may be considered. Performed By: #### 1 6362-6 #### ANA M Soler ([id number]) [facility] ([facility]) [address] [place], [place] [address] No Panel Informationon 12-11 Interpretation and review of laboratory results Abnormal [facility] PT and aPTT panel Coag (PPP) on 12-11-2024 aPTT Coag (PPP) [Time] 26 s Un [facility] INR Coag (PPP) [Relative time] 1.4 {INR} High 0.9 - 1.1 [facility] Interpretation and review of laboratory results Abnormal [facility] PT Coag (PPP) [Time] 15.3 s High [facility] aPTT Coag (PPP) [Time] 26 s Normal 26-36 Un [facility] Comment on above: Order Comment: The A PTT is no longer used for monitoring Unfractionated Heparin Therapy. For monitoring Heparin Therapy, use the Heparin Assay. Performed By: #### 1 6362-6 #### ANA M Soler ([id number]) [facility] ([facility]) [address] [place] [address] 30926 INR Coag (PPP) [Relative time] 1.4 High 0.9-1.[address] [facility] Comment on above: Order Comment: The A PTT is no longer used for monitoring Unfractionated Heparin Therapy. For monitoring Heparin Therapy, use the Heparin Assay. Performed By: #### 1 6362-6 #### ANA M Soler ([id number]) [facility] ([facility]) [address] [place] [address] 82820 PT Coag (PPP) [Time] 15.3 s High 9.8-12.4 [facility] Comment on above: Order Comment: The A PTT is no longer used for monitoring Unfractionated Heparin Therapy. For monitoring Heparin Therapy, use the Heparin Assay. Performed By: #### 1 6362-6 #### ANA M Soler ([id number]) [facility] ([facility]) [address] [place] [address] 48288 Phosphateon 12-11-2024 Phosphate [Mass/Vol] 2.1 mg/dL Low 2.5-4.9 [facility] Comment on above: Performed By: #### 1 6362-6 #### ANA M Soler ([id number]) [facility] ([facility]) [address] [place] [address] 11266 Phosphoruson 12-11-2024 Phosphate [Mass/Vol] 2.1 mg/dL Low 2.5 - 4 .9 mg/dL [facility] Vitamin B12on 12-11-2024 Cobalamin (Vitamin B12) [Mass/Vol] 859 pg/mL 211 - 911 pg/mL [facility] AFB Processedon 12-10-2024 Extra Tube Hold for add-ons. [facility] Albuminon 12-10-2024 Albumin (Body fld) [Mass/Vol] 1.0 g/dL Normal Not established [facility] Comment on above: Order Comment: The p erformance characteristics of this test have been validated on peritoneal/ascites,pleural, and pericardial fluid by the performing [facility] laboratory. This test has not been approved by the FDA; however, such approval is not necessary. Performed By: #### 1 968-7 #### ANA M Soler ([id number]) [facility] ([facility]) [address] [place] [address] 70859 Albumin, Body Fluidon 2024 Albumin (Body fld) [Mass/Vol] 1.0 g/dL Not established [facility] Amylaseon 12-10-2024 Amylase (Body fld) [Catalytic activity/Vol] 10 U/L Normal Not established. [facility] Comment on above: Order Comment: The p erformance characteristics of this test have been validated on peritoneal/ascites,pleural, pericardial, drain, and liver/pancreatic cyst fluid by the performing [facility] laboratory. This test has not been approved by the FDA; however, such approval is not necessary. Performed By: #### 1 968-7 #### ANA M Soler ([id number]) [facility] ([facility]) [address] [place] [address] Amylase, Body Fluidon 2024 Amylase (Body fld) [Catalytic activity/Vol] 10 U/L Not established. [facility] Bacteriaon 12-10-2024 Bacteria identified Cx Nom (Bld) Test: Blood Culture Specimen Source: Peripheral Venipuncture Specimen Type: Blood culture Specimen Date: 12/10/2024 1149 Result Date: 12/14/2024 140 Result Status: Final result Abnormal: No Resulting Lab: [facility] [address] [place] [address] CULTURE No growth at 4 days - FINAL REPORT [facility] Comment on above: Performed By: #### 1 9123-9 #### ANA M Soler ([id number]) [facility] ([facility]) [address] [place] [address] Bacteria identified Cx Nom (Bld) Test: Blood Culture Specimen Source: Peripheral Venipuncture Specimen Type: Blood culture Specimen Date: 12/10/2024 114 Result Date: 12/14/2024 140 Result Status: Final result Abnormal: No Resulting Lab: [facility] [address] [place] [address] CULTURE No growth at 4 days - FINAL REPORT [facility] Comment on above: Performed By: #### 1 9123-9 #### ANA M Soler ([id number]) [facility] ([facility]) [address] [place] [address] Bacteria identified Cx Nom (Body fld) Test: Sterile Fluid Culture/Smear Specimen Source: Ascites Fluid Specimen Type: Fluid Specimen Date: 12/10/202456 Result Date: 12/13/2024 0711 Result Status: Final result Resulting Lab: [facility] [address] [place] [address] CULTURE No growth aerobically and anaerobically STAIN (2+) Few Polymorphonuclear leukocytes No organisms seen [facility] Comment on above: Performed By: #### 1 6362-6 #### ANA M Soler ([id number]) [facility] ([facility]) [address] [place], [place] [address] Basic metabolic 2000 panelon 12-10-2024 Anion gap [Moles/Vol] 13 mmol/L 10 - 2 0 mmol/L [facility] Calcium [Mass/Vol] 8.5 mg/dL Low 8.6 - 10. 6 mg/dL [facility] Chloride [Moles/Vol] 92 mmol/L Low 98 - 10 7 mmol/L [facility] CO2 [Moles/Vol] 30 mmol/L 21 - 32 mmol/L [facility] Creatinine [Mass/Vol] 0.64 mg/dL 0.50 - 1.30 mg/dL [facility] eGFR - PINF [facility] Glucose [Mass/Vol] 109 mg/dL High 74 - 99 mg/dL [facility] Interpretation and review of laboratory results Abnormal [facility] Potassium [Moles/Vol] 3.4 mmol/L Low 3.5 - 5.3 mmol/L [facility] Sodium [Moles/Vol] 132 mmol/L Low 136 - 145 mmol/L [facility] Urea nitrogen [Mass/Vol] 12 mg/dL 6 - 23 mg/dL [facility] Anion gap [Moles/Vol] 13 mmol/L Normal 10-20 [facility] Comment on above: Performed By: #### Sarah RUBL #### ANA M Soler ([id number]) [facility] ([facility]) [address] [place] [address] 04010 Calcium [Mass/Vol] 8.5 mg/dL Low 8.6-10.6 [facility] Comment on above: Performed By: #### Sarah RUBL #### ANA M Soler ([id number]) [facility] ([facility]) [address] [place] [address] 25541 Chloride [Moles/Vol] 92 mmol/L Low 98-107 [facility] Comment on above: Performed By: #### Sarah RUBL #### ANA M Soler ([id number]) [facility] ([facility]) [id number] [place] [address] 31161 CO2 [Moles/Vol] 30 mmol/L Normal 21-32 [facility] Comment on above: Performed By: #### D RUBL #### ANA M BROWNTZER L ([id number]) [facility] ([facility]) [address] [place] [address] Creatinine [Mass/Vol] 0.64 mg/dL Normal 0.50-1.30 [facility] Comment on above: Result Comment: CORNELIO VILLANUEVA ICTERUS DETECTED. The result may be falsely decreased due to icterus or other interferents. Clinical correlation is recommended. Repeat testing may be considered. Performed By: #### D RUBL #### ANA M BROWNTZER L ([id number]) [facility] ([facility]) [address] [place] [address] 06946 Glomerular filtration rate >90 Normal >[address] [facility] Comment on above: Result Comment: Calc ulations of estimated GFR are performed using the 2020 CKD-EPI Study Refit equation without the race variable for the IDMS-Traceable creatinine methods. https://jasn.asnjournals.org/content/early/ASN.55239 99849 Performed By: #### D RUBL #### ANA M BROWNTZER L ([id number]) [facility] ([facility]) [address] [place] [address] 34389 Glucose [Mass/Vol] 109 mg/dL High 74-99 [facility] Comment on above: Performed By: #### D RUBL #### ANA M SCHULTZMOTZER L ([id number]) [facility] ([facility]) [id number] [place] [address] 38027 Potassium [Moles/Vol] 3.4 mmol/L Low 3.5-5.3 [facility] Comment on above: Performed By: #### D RUBL #### ANA M SCHULTZMOTZER L ([id number]) [facility] ([facility]) [address] [place] [address] 59647 Sodium [Moles/Vol] 132 mmol/L Low 136-145 [facility] Comment on above: Performed By: #### D RUBL #### ANA M SCHMOTZER L ([id number]) [facility] ([facility]) [address] [place] [address] Urea nitrogen [Mass/Vol] 12 mg/dL Normal 6-[address] [facility] Comment on above: Performed By: #### D MANNYL #### ANA M Soler ([id number]) [facility] ([facility]) [address] [place] [address] 49195 Bilirubinon 12-10-2024 Bilirubin (Body fld) [Mass/Vol] 6.3 mg/dL Normal Not established [facility] Comment on above: Order Comment: The p erformance characteristics of this test have been validated on peritoneal/ascites,pleural, pericardial and drain fluid by the [facility] laboratory. This test has not been approved by the FDA; however, such approval is not necessary. Performed By: #### 1 968-7 #### ANA M Soler ([id number]) [facility] ([facility]) [address] [place] [address] 37145 Bilirubin, Total, Body Fluid on 12-10-2024 Bilirubin (Body fld) [Mass/Vol] 6.3 mg/dL Not established [facility] CBC W Auto Differential pane l (Bld)on 12-10-2024 Basophils (Bld) [#/Vol] 0.06 10*3/uL [facility] Basophils/100 WBC (Bld) 0.3 % 0.0 - 2.0 % [facility] Eosinophils (Bld) [#/Vol] 0.00 10*3/uL [facility] Eosinophils/100 WBC (Bld) 0.0 % 0.0 - 6.0 % [facility] Erythrocyte distribution width (RBC) [Ratio] 18.3 % High 11.5 - 14.5 % [facility] Hematocrit (Bld) [Volume fraction] 39.6 % Low 41.0 - 52.0 % [facility] Hemoglobin (Bld) [Mass/Vol] 13.6 g/dL 13.5 - 17.5 g/dL [facility] Immature granulocytes (Bld) [#/Vol] 0.72 10*3/uL High [facility] Immature granulocytes/100 WBC (Bld) 3.1 % High 0.0 - 0.9 % [facility] Interpretation and review of laboratory results Abnormal [facility] Lymphocytes (Bld) [#/Vol] 1.38 10*3/uL [facility] Lymphocytes/100 WBC (Bld) 6.0 % 13.0 - 44.0 % [facility] MCH (RBC) [Entitic mass] 37.7 pg High 26.0 - 34.0 pg [facility] MCHC (RBC) [Mass/Vol] 34.3 g/dL 32.0 - 36.0 g/dL [facility] MCV (RBC) [Entitic vol] 110 fL High 80 - 100 fL [facility] Monocytes (Bld) [#/Vol] 2.94 10*3/uL High [facility] Monocytes/100 WBC (Bld) 12.8 % 2.0 - 10.0 % [facility] Neutrophils (Bld) [#/Vol] 17.78 10*3/uL High [facility] Neutrophils/100 WBC (Bld) 77.8 % 40.0 - 80.0 % [facility] Nucleated RBC/100 WBC (Bld) [Ratio] 0.0 % [facility] Platelets (Bld) [#/Vol] 244 10*3/uL [facility] RBC (Bld) [#/Vol] 3.61 10*6/uL Low [facility] WBC (Bld) [#/Vol] 22.9 10*3/uL High [facility] Basophils (Bld) [#/Vol] 0.06 x10*3/uL Normal 0.00-0.[address] [facility] Comment on above: Performed By: #### D RUBL #### ANA M Soler ([id number]) [facility] ([facility]) [id number] [place] [address] 48354 Basophils/100 WBC (Bld) 0.3 % Normal 0.0-2.[address] [facility] Comment on above: Performed By: #### D RUBL #### ANA M Soler ([id number]) [facility] ([facility]) [id number] [place] [address] 20051 Eosinophils (Bld) [#/Vol] 0.00 x10*3/uL Normal 0.00-0.[address] [facility] Comment on above: Performed By: #### D RUBL #### ANA M Soler ([id number]) [facility] ([facility]) [address] [place] [address] 18615 Eosinophils/100 WBC (Bld) 0.0 % Normal 0.0-6.[address] [facility] Comment on above: Performed By: #### D RUBL #### ANA M Soler ([id number]) [facility] ([facility]) [address] [place] [address] 58349 Erythrocyte distribution width (RBC) [Ratio] 18.3 % High 11.5-14.[address] [facility] Comment on above: Performed By: #### D RUBL #### ANA M Soler ([id number]) [facility] ([facility]) [address] [place] [address] 94429 Hematocrit (Bld) [Volume fraction] 39.6 % Low 41.0-52.[address] [facility] Comment on above: Performed By: #### D RUBL #### ANA M Soler ([id number]) [facility] ([facility]) [address] [place] [address] 00228 Hemoglobin (Bld) [Mass/Vol] 13.6 g/dL Normal 13.5-17.[address] [facility] Comment on above: Performed By: #### D RUBL #### ANA M Soler ([id number]) [facility] ([facility]) [address] [place] [address] 44850 Immature granulocytes (Bld) [#/Vol] 0.72 x10*3/uL High 0.00-0.[address] [facility] Comment on above: Performed By: #### D RUBL #### ANA M Soler ([id number]) [facility] ([facility]) [address] [place] [address] 03336 Immature granulocytes/100 WBC (Bld) 3.1 % High 0.0-0.[address] [facility] Comment on above: Result Comment: Johanna ture Granulocyte Count (IG) includes promyelocytes, myelocytes and metamyelocytes but does not include bands. Percent differential counts (%) should be interpreted in the context of the absolute cell counts (cells/UL). Performed By: #### D RUBL #### ANA M Soler ([id number]) [facility] ([facility]) [address] [place] [address] Lymphocytes (Bld) [#/Vol] 1.38 x10*3/uL Normal 1.20-4.[address] [facility] Comment on above: Performed By: #### D RUBL #### ANA M Soler ([id number]) [facility] ([facility]) [id number] [place] [address] 26172 Lymphocytes/100 WBC (Bld) 6.0 % Normal 13.0-44.[address] [facility] Comment on above: Performed By: #### Sarah RUBL #### ANA M Soler ([id number]) [facility] ([facility]) [address] [place] [address] MCH (RBC) [Entitic mass] 37.7 pg High 26.0-34.[address] [facility] Comment on above: Performed By: #### Sarah RUBL #### ANA M Soler ([id number]) [facility] ([facility]) [address] [place] [address] MCHC (RBC) [Mass/Vol] 34.3 g/dL Normal 32.0-36.0 [facility] Comment on above: Performed By: #### D RUBL #### ANA M Soler ([id number]) [facility] ([facility]) [address] [place] [address] MCV (RBC) [Entitic vol] 110 fL High 80-[address] [facility] Comment on above: Performed By: #### D RUBL #### ANA M Soler ([id number]) [facility] ([facility]) [address] [place] [address] Monocytes (Bld) [#/Vol] 2.94 x10*3/uL High 0.10-1.[address] [facility] Comment on above: Performed By: #### D RUBL #### ANA M Soler ([id number]) [facility] ([facility]) [address] [place] [address] 46885 Monocytes/100 WBC (Bld) 12.8 % Normal 2.0-10.[address] [facility] Comment on above: Performed By: #### Sarah RUBL #### ANA M Soler ([id number]) [facility] ([facility]) [address] [place] [address] 98534 Neutrophils (Bld) [#/Vol] 17.78 x10*3/uL High 1.20-7.[address] [facility] Comment on above: Result Comment: Perc ent differential counts (%) should be interpreted in the context of the absolute cell counts (cells/uL). Performed By: #### Sarah RUBL #### ANA M Soler ([id number]) [facility] ([facility]) [address] [place] [address] 11637 Neutrophils/100 WBC (Bld) 77.8 % Normal 40.0-80.[address] [facility] Comment on above: Performed By: #### Sarah RUBL #### ANA M Soler ([id number]) [facility] ([facility]) [address] [place] [address] 40978 Nucleated RBC/100 WBC (Bld) [Ratio] 0.0 /100 WBCs Normal 0.0-0.[address] [facility] Comment on above: Performed By: #### Sarah RUBL #### ANA M Soler ([id number]) [facility] ([facility]) [address] [place] [address] 25985 Platelets (Bld) [#/Vol] 244 x10*3/uL Normal 150-[address] [facility] Comment on above: Performed By: #### D RUBL #### ANA M Soler ([id number]) [facility] ([facility]) [address] [place] [address] RBC (Bld) [#/Vol] 3.61 x10*6/uL Low 4.50-5.90 [facility] Comment on above: Performed By: #### Sarah RUBL #### ANA M Soler ([id number]) [facility] ([facility]) [address] [place] [address] WBC (Bld) [#/Vol] 22.9 x10*3/uL High 4.4-11.3 [facility] Comment on above: Performed By: #### Sarah RUBL #### ANA M Soler ([id number]) [facility] ([facility]) [address] [place] [address] Cell count panel (Body fld)o n 12-10-2024 Clarity (Body fld) Clear Clear [facility] Color (Body fld) Yellow Colorless, Straw, Yellow [facility] RBC Auto (Body fld) [#/Vol] 240 /uL see comment [facility] WBC (Body fld) [#/Vol] 0.022 10*3/uL See Commen [facility] Clarity (Body fld) Clear Clear [facility] Color (Body fld) Yellow Colorless, Straw, Yellow [facility] RBC Auto (Body fld) [#/Vol] 252 /uL see comment [facility] WBC (Body fld) [#/Vol] 0.038 10*3/uL See [facility] Clarity (Body fld) Clear Normal Clear [facility] Comment on above: Order Comment: Body Fluid cell count reference ranges have not been established by [facility]. Reference ranges provided are based on published references. Performed By: #### 1 968-7 #### ANA M Soler ([id number]) [facility] ([facility]) [address] [place] [address] Performed By: #### 1 9123-9 #### ANA M Soler ([id number]) [facility] ([facility]) [address] [place] [address] Color (Body fld) Yellow Normal Colorless, Straw, Yellow [facility] Comment on above: Order Comment: Body Fluid cell count reference ranges have not been established by [facility]. Reference ranges provided are based on published references. Performed By: #### 1 968-7 #### ANA M Soler ([id number]) [facility] ([facility]) [address] [place] [address] Performed By: #### 1 9123-9 #### ANA M Soler ([id number]) [facility] ([facility]) [address] [place] [address] RBC Auto (Body fld) [#/Vol] 252 /uL Normal see comment [facility] Comment on above: Order Comment: Body Fluid cell count reference ranges have not been established by [facility]. Reference ranges provided are based on published references. Result Comment: Manu al hemacytometer count. BAL/Synovial/Peritoneal/Pericardial/Pleural Fluid Reference Range: <500 cells/uL Performed By: #### 1 968-7 #### ANA M Soler ([id number]) [facility] ([facility]) [address] [place] [address] RBC Auto (Body fld) [#/Vol] 240 /uL Normal see comment [facility] Comment on above: Order Comment: Body Fluid cell count reference ranges have not been established by [facility]. Reference ranges provided are based on published references. Result Comment: Manu al hemacytometer count. BAL/Synovial/Peritoneal/Pericardial/Pleural Fluid Reference Range: <500 cells/uL Performed By: #### 1 9123-9 #### ANA M Soler ([id number]) [facility] ([facility]) [address] [place], [place] [id number] WBC (Body fld) [#/Vol] 0.038 10*3/uL Normal See Elvin mcduffie [facility] Comment on above: Order Comment: Body Fluid cell count reference ranges have not been established by [facility]. Reference ranges provided are based on published references. Result Comment: Manu al hemacytometer count. BAL/Synovial/Peritoneal/Pericardial/Pleural Fluid Reference Range: <500 cells/uL Performed By: #### 1 968-7 #### ANA M Soler ([id number]) [facility] ([facility]) [address] [place] [address] WBC (Body fld) [#/Vol] 0.022 10*3/uL Normal See Elvin t [facility] Comment on above: Order Comment: Body Fluid cell count reference ranges have not been established by [facility]. Reference ranges provided are based on published references. Result Comment: Manu al hemacytometer count. BAL/Synovial/Peritoneal/Pericardial/Pleural Fluid Reference Range: <500 cells/uL Performed By: #### 1 9123-9 #### ANA M Soler ([id number]) [facility] ([facility]) [address] [place] [address] 49820 Cholesterolon 12-10-2024 Cholesterol (Body fld) [Mass/Vol] <25 Normal Not established [facility] Comment on above: Order Comment: The p erformance characteristics of this test have been validated on peritoneal/ascites,pleural, and pericardial fluid by the performing [facility] laboratory. This test has not been approved by the FDA; however, such approval is not necessary. Performed By: #### 1 968-7 #### ANA M Soler ([id number]) [facility] ([facility]) [address] [place] [address] 05171 Cholesterol, Body Fluidon Cholesterol (Body fld) [Mass/Vol] mg/dL Not established mg/dL [facility] Differential panel (Body fld )on 12-10-2024 Cells Counted Total (Body fld) [#] 100 [facility] Eosinophils/100 WBC Manual cnt (Body fld) [facility] Lymphocytes/100 WBC Manual cnt (Body fld) 31 % see comment [facility] Monocytes+Macrophages/ 100 WBC Manual cnt (Body fld) 59 % see comment [facility] Neutrophils/100 WBC (Body fld) 10 % see comment [facility] Cells Counted Total (Body fld) [#] [address] [facility] Comment on above: Order Comment: Body Fluid cell differential reference ranges have not been established by [facility]. Reference ranges provided are based on published references. Performed By: #### 1 9123-9 #### ANA M INMANER L ([id number]) [facility] ([facility]) [address] [place] [address] Eosinophils/100 WBC Manual cnt (Body fld) Normal [facility] Comment on above: Order Comment: Body Fluid cell differential reference ranges have not been established by [facility]. Reference ranges provided are based on published references. Result Comment: BAL Reference Range: <1% Performed By: #### 1 9123-9 #### ANA M BROWNTZER L ([id number]) [facility] ([facility]) [address] [place] [address] Lymphocytes/100 WBC Manual cnt (Body fld) 31 % Normal see comment [facility] Comment on above: Order Comment: Body Fluid cell differential reference ranges have not been established by [facility]. Reference ranges provided are based on published references. Result Comment: Syno vial/Peritoneal/Pericardial/Pleural Fluid Reference Range: <75% BAL Reference Range: <10% Performed By: #### 1 9123-9 #### ANA M BROWNTZER L ([id number]) [facility] ([facility]) [address] [place] [address] Monocytes+Macrophages/ 100 WBC Manual cnt (Body fld) 59 % Normal see comment [facility] Comment on above: Order Comment: Body Fluid cell differential reference ranges have not been established by [facility]. Reference ranges provided are based on published references. Result Comment: Syno vial/Peritoneal/Pericardial/Pleural Fluid Reference Range: <70% BAL Reference Range: 87-100% Performed By: #### 1 9123-9 #### ANA M SCHULTZMOTZER L ([id number]) [facility] ([facility]) [address] [place] [address] Neutrophils/100 WBC (Body fld) 10 % Normal see comment [facility] Comment on above: Order Comment: Body Fluid cell differential reference ranges have not been established by [facility]. Reference ranges provided are based on published references. Result Comment: Syno vial/Peritoneal/Pericardial/Pleural Fluid Reference Range: <25% BAL Reference Range: <2% Performed By: #### 1 9123-9 #### ANA M Soler ([id number]) [facility] ([facility]) [address] [place] [address] 15127 Glucoseon 12-10-2024 Glucose (Body fld) [Mass/Vol] 134 mg/dL Normal Not established [facility] Comment on above: Order Comment: The p erformance characteristics of this test have been validated on peritoneal/ascites, pleural, pericardial, drain, dialysate and liver/pancreatic cyst fluid by the [facility]. This test has not been approved by the FDA; however, such approval is not necessary. Performed By: #### 1 9123-9 #### ANA M Soler ([id number]) [facility] ([facility]) [address] [place] [address] 78994 Glucose Test strip manual (B ld) [Mass/Vol]on 12-10-2024 Glucose [Mass/Vol] 138 mg/dL High 74 - 99 mg/dL [facility] Interpretation and review of laboratory results Abnormal [facility] Glucose [Mass/Vol] 138 mg/dL High 74-99 [facility] Comment on above: Performed By: #### 1 6362-6 #### ANA M Soler ([id number]) [facility] ([facility]) [address] [place] [address] 47008 Glucose [Mass/Vol] 124 mg/dL High 74 - 99 mg/dL [facility] Interpretation and review of laboratory results Abnormal [facility] Glucose [Mass/Vol] 124 mg/dL High 74-99 [facility] Comment on above: Performed By: #### 1 6362-6 #### ANA M Soler ([id number]) [facility] ([facility]) [address] [place] [address] 38926 Glucose [Mass/Vol] 120 mg/dL High 74 - 99 mg/dL [facility] Interpretation and review of laboratory results Abnormal [facility] Glucose [Mass/Vol] 120 mg/dL High 74-99 [facility] Comment on above: Performed By: #### 1 9123-9 #### ANA M Soler ([id number]) [facility] ([facility]) [address] [place] [address] Glucose [Mass/Vol] 94 mg/dL 74 - 99 mg/dL [facility] Interpretation and review of laboratory results Normal [facility] Glucose [Mass/Vol] 94 mg/dL Normal 74-99 [facility] Comment on above: Performed By: #### 1 968-7 #### ANA M Soler ([id number]) [facility] ([facility]) [address] [place] [address] Glucose, Body Fluidon 2024 Glucose (Body fld) [Mass/Vol] 134 mg/dL Not established [facility] Guidance for paracentesis of Peritoneumon 12-10-2024 [facility] MMODAL U[facility] MMODAL [facility] Work Phone: [facility] Work Phone: Radiology Study observation (narrative) [facility] Work Phone: Hepatic function 2000 panelo n 12-10-2024 Albumin BCP dye [Mass/Vol] 3.1 g/dL Low 3.4 - 5.0 g/dL [facility] ALP [Catalytic activity/Vol] 165 U/L High 33 - 120 U/L [facility] ALT With P-5'-P [Catalytic activity/Vol] 67 U/L High 10 - 52 U/L [facility] AST With P-5'-P [Catalytic activity/Vol] 134 U/L High 9 - 39 U/L [facility] Bilirubin [Mass/Vol] 22.8 mg/dL High 0.0 - 1 .2 mg/dL [facility] Bilirubin.direct [Mass/Vol] 15.0 mg/dL High 0.0 - 0.3 mg/dL [facility] Interpretation and review of laboratory results Abnormal [facility] Protein [Mass/Vol] 5.5 g/dL Low 6.4 - 8.2 g/dL [facility] Albumin BCP dye [Mass/Vol] 3.1 g/dL Low 3.4-5.[address] [facility] Comment on above: Performed By: #### 1 968-7 #### ANA M Soler ([id number]) [facility] ([facility]) [address] [place] [address] ALP [Catalytic activity/Vol] 165 U/L High 33-[address] [facility] Comment on above: Result Comment: CORNELIO VILLANUEVA ICTERUS DETECTED. The result may be falsely elevated due to icterus or other interferents. Clinical correlation is recommended. Repeat testing may be considered. Performed By: #### 1 968-7 #### ANA M AVINA L ([id number]) [facility] ([facility]) [id number] [place] [address] 84712 ALT With P-5'-P [Catalytic activity/Vol] 67 U/L High 10-[address] [facility] Comment on above: Result Comment: Kala ents treated with Sulfasalazine may generate falsely decreased results for ALT. Performed By: #### 1 968-7 #### ANA M AVINA L ([id number]) [facility] ([facility]) [address] [place] [address] AST With P-5'-P [Catalytic activity/Vol] 134 U/L High 9-[address] [facility] Comment on above: Performed By: #### 1 968-7 #### ANA M SCHULTZMOFLORECITAER L ([id number]) [facility] ([facility]) [address] [place] [address] Bilirubin [Mass/Vol] 22.8 mg/dL High 0.0-1.2 [facility] Comment on above: Performed By: #### 1 968-7 #### ANA M SCHULTZMOTZER L ([id number]) [facility] ([facility]) [address] [place] [address] Bilirubin.direct [Mass/Vol] 15.0 mg/dL High 0.0-0.[address] [facility] Comment on above: Performed By: #### 1 968-7 #### ANA M SCHULTZMOTZER L ([id number]) [facility] ([facility]) [address] [place] [address] 13235 Protein [Mass/Vol] 5.5 g/dL Low 6.4-8.2 [facility] Comment on above: Performed By: #### 1 968-7 #### ANA M Soler ([id number]) [facility] ([facility]) [id number] [place] [address] 92600 Lactate Dehydrogenase, Body Fluidon 12-10-2024 LDH Lactate to pyruvate reaction (Body fld) [Catalytic activity/Vol] 48 U/L Not established. [facility] Lactate dehydrogenaseon 11-15 LDH Lactate to pyruvate reaction (Body fld) [Catalytic activity/Vol] 48 U/L Normal Not established. [facility] Comment on above: Order Comment: The p erformance characteristics of this test have been validated on peritoneal/ascites,pleural, pericardial and drain fluid by the performing [facility] laboratory. This test has not been approved by the FDA; however, such approval is not necessary. Performed By: #### 1 9123-9 #### ANA M Soler ([id number]) [facility] ([facility]) [id number] [place] [address] 37203 Magnesiumon 12-10-2024 Magnesium [Mass/Vol] 2.59 mg/dL High 1.60 - 2.40 mg/dL [facility] Magnesium [Mass/Vol] 2.59 mg/dL High 1.60-2.40 [facility] Comment on above: Result Comment: CORNELIO ED ICTERUS DETECTED. The result may be falsely elevated due to icterus or other interferents. Clinical correlation is recommended. Repeat testing may be considered. Performed By: #### 1 968-7 #### ANA M Soler ([id number]) [facility] ([facility]) [id number] [place] [address] 52762 Mycobacterium spon Mycobacterium sp identified Org specific cx Nom (Unsp spec) Test: AFB Culture/Smear Specimen Source: Ascites Fluid Specimen Type: Fluid Specimen Date: 12/10/2024 0856 Result Date: 12/24/2024 1213 Result Status: Preliminary result Resulting Lab: [facility] [address] [place], [place] [id number] CULTURE Culture in progress and will be examined weekly. A result will be issued either when positive or after 8 weeks incubation. STAIN No acid fast bacilli seen Normal [facility] Comment on above: Performed By: #### 1 6362-6 #### ANA M Soler ([id number]) [facility] ([facility]) [address] [place] [address] No Panel Informationon 12-10 [facility] Interpretation and review of laboratory results Abnormal [facility] PT and aPTT panel Coag (PPP) on 12-10-2024 aPTT Coag (PPP) [Time] 28 s Un [facility] Work Phone: INR Coag (PPP) [Relative time] 1.4 {INR} High 0.9 - 1.1 [facility] Work Phone: Interpretation and review of laboratory results Abnormal [facility] Work Phone: PT Coag (PPP) [Time] 15.5 s High [facility] Work Phone: [facility] Work Phone: [facility] Work Phone: aPTT Coag (PPP) [Time] 28 s Normal 26-36 [facility] Comment on above: Order Comment: The A PTT is no longer used for monitoring Unfractionated Heparin Therapy. For monitoring Heparin Therapy, use the Heparin Assay. Performed By: #### 1 968-7 #### ANA M Soler ([id number]) [facility] ([facility]) [address] [place] [address] INR Coag (PPP) [Relative time] 1.4 High 0.9-1.[address] [facility] Comment on above: Order Comment: The A PTT is no longer used for monitoring Unfractionated Heparin Therapy. For monitoring Heparin Therapy, use the Heparin Assay. Performed By: #### 1 968-7 #### ANA M Soler ([id number]) [facility] ([facility]) [address] [place] [address]14 PT Coag (PPP) [Time] 15.5 s High 9.8-12.4 [facility] Comment on above: Order Comment: The A PTT is no longer used for monitoring Unfractionated Heparin Therapy. For monitoring Heparin Therapy, use the Heparin Assay. Performed By: #### 1 968-7 #### ANA M Soler ([id number]) [facility] ([facility]) [address] [place] [address] 16853 Phosphateon 12-10-2024 Phosphate [Mass/Vol] 2.0 mg/dL Low 2.5-4.9 [facility] Comment on above: Performed By: #### 1 968-7 #### ANA M Soler ([id number]) [facility] ([facility]) [address] [place] [address] 15400 Phosphoruson 12-10-2024 Phosphate [Mass/Vol] 2.0 mg/dL Low 2.5 - 4 .9 mg/dL [facility] Proteinon 12-10-2024 Protein (Body fld) [Mass/Vol] 1.5 g/dL Normal Not established [facility] Comment on above: Order Comment: The p erformance characteristics of this test have been validated on peritoneal/ascites,pleural, pericardial, drain, and liver/pancreatic cyst fluid by the [facility] laboratory. This test has not been approved by the FDA; however, such approval is not necessary. Performed By: #### 1 9123-9 #### ANA M Soler ([id number]) [facility] ([facility]) [address] [place] [address] 29548 Protein, Total, Body Fluidon 12-10-2024 Protein (Body fld) [Mass/Vol] 1.5 g/dL Not established [facility] Urea Nitrogen, Body Fluidon 12-10-2024 Urea nitrogen (Body fld) [Mass/Vol] 12 mg/dL Not established [facility] Urea nitrogenon 12-10-2024 Urea nitrogen (Body fld) [Mass/Vol] 12 mg/dL Normal Not established [facility] Comment on above: Order Comment: The p erformance characteristics of this test have been validated on peritoneal/ascites,pleural, pericardial, drain and dialysate fluid by the performing [facility] laboratory. This test has not been approved by the FDA; however, such approval is not necessary. Performed By: #### 1 9123-9 #### ANA M Soler ([id number]) [facility] ([facility]) [address] [place] [address] Anti-smooth muscle antibody, IgGOrdered By: Bert Mike on 12-09-2024 Smooth muscle Ab IF Ql (S) Positive Abnormal Negative [facility] Bacteria identified Cx Nom ( Bld)on 12-09-2024 Interpretation and review of laboratory results Normal [facility] Basic metabolic 2000 panelon 12-09-2024 Anion gap [Moles/Vol] 14 mmol/L 10 - 2 0 mmol/L [facility] Calcium [Mass/Vol] 8.5 mg/dL Low 8.6 - 10. 6 mg/dL [facility] Chloride [Moles/Vol] 90 mmol/L Low 98 - 10 7 mmol/L [facility] CO2 [Moles/Vol] 30 mmol/L 21 - 32 mmol/L [facility] Creatinine [Mass/Vol] 0.65 mg/dL 0.50 - 1.30 mg/dL [facility] eGFR - PINF [facility] Glucose [Mass/Vol] 101 mg/dL High 74 - 99 mg/dL [facility] Interpretation and review of laboratory results Abnormal [facility] Potassium [Moles/Vol] 3.4 mmol/L Low 3.5 - 5.3 mmol/L [facility] Sodium [Moles/Vol] 131 mmol/L Low 136 - 145 mmol/L [facility] Urea nitrogen [Mass/Vol] 10 mg/dL 6 - 23 mg/dL [facility] Anion gap [Moles/Vol] 14 mmol/L Normal 10-20 [facility] Comment on above: Performed By: #### D RUBL #### ANA M SCHULTZMOTZER L ([id number]) [facility] ([facility]) [address] [place] [address] Calcium [Mass/Vol] 8.5 mg/dL Low 8.6-10.6 [facility] Comment on above: Performed By: #### D RUBL #### ANA M SCHMOTZER L ([id number]) [facility] ([facility]) [address] [place] [address] Chloride [Moles/Vol] 90 mmol/L Low 98-107 [facility] Comment on above: Performed By: #### D RUBL #### ANA M SCHMOTZER L ([id number]) [facility] ([facility]) [address] [place] [address] CO2 [Moles/Vol] 30 mmol/L Normal 21-32 [facility] Comment on above: Performed By: #### D RUBL #### ANA M SCHULTZMOFLORECITAER L ([id number]) [facility] ([facility]) [address] [place] [address] Creatinine [Mass/Vol] 0.65 mg/dL Normal 0.50-1.30 [facility] Comment on above: Result Comment: CORNELIO VILLANUEVA ICTERUS DETECTED. The result may be falsely decreased due to icterus or other interferents. Clinical correlation is recommended. Repeat testing may be considered. Performed By: #### D RUBL #### ANA M SCHULTZMOTZER L ([id number]) [facility] ([facility]) [address] [place] [address] Glomerular filtration rate >90 Normal >[address] [facility] Comment on above: Result Comment: Calc ulations of estimated GFR are performed using the 2020 CKD-EPI Study Refit equation without the race variable for the IDMS-Traceable creatinine methods. https://jasn.asnjournals.org/content//ASN.78486 81694 Performed By: #### D RUBL #### ANA M AVINA L ([id number]) [facility] ([facility]) [address] [place] [address] Glucose [Mass/Vol] 101 mg/dL High 74-99 [facility] Comment on above: Performed By: #### D RUBL #### ANA M INMANER L ([id number]) [facility] ([facility]) [id number] [place] [address] Potassium [Moles/Vol] 3.4 mmol/L Low 3.5-5.3 [facility] Comment on above: Performed By: #### D RUBL #### ANA M INMANER L ([id number]) [facility] ([facility]) [address] [place] [address] 15302 Sodium [Moles/Vol] 131 mmol/L Low 136-145 [facility] Comment on above: Performed By: #### D RUBL #### ANA M AVINA L ([id number]) [facility] ([facility]) [address] [place] [address] 45137 Urea nitrogen [Mass/Vol] 10 mg/dL Normal 6-[address] [facility] Comment on above: Performed By: #### D RUBL #### ANA M AVINA L ([id number]) [facility] ([facility]) [address] [place] [address] 08142 CBC W Auto Differential pane l (Bld)on 12-09-2024 Basophils (Bld) [#/Vol] 0.04 10*3/uL [facility] Basophils/100 WBC (Bld) 0.2 % 0.0 - 2.0 % [facility] Eosinophils (Bld) [#/Vol] 0.01 10*3/uL [facility] Eosinophils/100 WBC (Bld) 0.1 % 0.0 - 6.0 % [facility] Erythrocyte distribution width (RBC) [Ratio] 18.3 % High 11.5 - 14.5 % [facility] Hematocrit (Bld) [Volume fraction] 38.7 % Low 41.0 - 52.0 % [facility] Hemoglobin (Bld) [Mass/Vol] 13.8 g/dL 13.5 - 17.5 g/dL [facility] Immature granulocytes (Bld) [#/Vol] 0.36 10*3/uL [facility] Immature granulocytes/100 WBC (Bld) 1.9 % High 0.0 - 0.9 % [facility] Interpretation and review of laboratory results Abnormal [facility] Lymphocytes (Bld) [#/Vol] 1.15 10*3/uL Low [facility] Lymphocytes/100 WBC (Bld) 5.9 % 13.0 - 44.0 % [facility] MCH (RBC) [Entitic mass] 38.7 pg High 26.0 - 34.0 pg [facility] MCHC (RBC) [Mass/Vol] 35.7 g/dL 32.0 - 36.0 g/dL [facility] MCV (RBC) [Entitic vol] 108 fL High 80 - 100 fL [facility] Monocytes (Bld) [#/Vol] 2.20 10*3/uL High [facility] Monocytes/100 WBC (Bld) 11.3 % 2.0 - 10.0 % [facility] Neutrophils (Bld) [#/Vol] 15.64 10*3/uL High [facility] Neutrophils/100 WBC (Bld) 80.6 % 40.0 - 80.0 % [facility] Nucleated RBC/100 WBC (Bld) [Ratio] 0.0 % [facility] Platelets (Bld) [#/Vol] 193 10*3/uL [facility] RBC (Bld) [#/Vol] 3.57 10*6/uL Low [facility] WBC (Bld) [#/Vol] 19.4 10*3/uL High [facility] Basophils (Bld) [#/Vol] 0.04 x10*3/uL Normal 0.00-0.[address] [facility] Comment on above: Performed By: #### 5 902-2 #### ANA M Soler ([id number]) [facility] ([facility]) [address] [place] [address] Basophils/100 WBC (Bld) 0.2 % Normal 0.0-2.[address] [facility] Comment on above: Performed By: #### 5 902-2 #### ANA M Soler ([id number]) [facility] ([facility]) [address] [place] [address] 11455 Eosinophils (Bld) [#/Vol] 0.01 x10*3/uL Normal 0.00-0.[address] [facility] Comment on above: Performed By: #### 5 902-2 #### ANA M Soler ([id number]) [facility] ([facility]) [address] [place] [address] 90703 Eosinophils/100 WBC (Bld) 0.1 % Normal 0.0-6.[address] [facility] Comment on above: Performed By: #### 5 902-2 #### ANA M Soler ([id number]) [facility] ([facility]) [address] [place] [address] 48622 Erythrocyte distribution width (RBC) [Ratio] 18.3 % High 11.5-14.[address] [facility] Comment on above: Performed By: #### 5 902-2 #### ANA M Soler ([id number]) [facility] ([facility]) [address] [place] [address] 52489 Hematocrit (Bld) [Volume fraction] 38.7 % Low 41.0-52.[address] [facility] Comment on above: Performed By: #### 5 902-2 #### ANA M Soler ([id number]) [facility] ([facility]) [address] [place] [address] 82527 Hemoglobin (Bld) [Mass/Vol] 13.8 g/dL Normal 13.5-17.[address] [facility] Comment on above: Performed By: #### 5 902-2 #### ANA M Soler ([id number]) [facility] ([facility]) [address] [place] [address] 98942 Immature granulocytes (Bld) [#/Vol] 0.36 x10*3/uL Normal 0.00-0.[address] [facility] Comment on above: Performed By: #### 5 902-2 #### ANA M Soler ([id number]) [facility] ([facility]) [address] [place] [address] 93551 Immature granulocytes/100 WBC (Bld) 1.9 % High 0.0-0.[address] [facility] Comment on above: Result Comment: Johanna ture Granulocyte Count (IG) includes promyelocytes, myelocytes and metamyelocytes but does not include bands. Percent differential counts (%) should be interpreted in the context of the absolute cell counts (cells/UL). Performed By: #### 5 902-2 #### ANA M Soler ([id number]) [facility] ([facility]) [address] [place] [address] 14589 Lymphocytes (Bld) [#/Vol] 1.15 x10*3/uL Low 1.20-4.[address] [facility] Comment on above: Performed By: #### 5 902-2 #### ANA M Soler ([id number]) [facility] ([facility]) [address] [place] [address] 37653 Lymphocytes/100 WBC (Bld) 5.9 % Normal 13.0-44.[address] [facility] Comment on above: Performed By: #### 5 902-2 #### ANA M Soler ([id number]) [facility] ([facility]) [address] [place] [address] 62545 MCH (RBC) [Entitic mass] 38.7 pg High 26.0-34.[address] [facility] Comment on above: Performed By: #### 5 902-2 #### ANA M AVINA L ([id number]) [facility] ([facility]) [address] [place] [address] 75267 MCHC (RBC) [Mass/Vol] 35.7 g/dL Normal 32.0-36.0 [facility] Comment on above: Performed By: #### 5 902-2 #### ANA M Soler ([id number]) [facility] ([facility]) [address] [place] [address] MCV (RBC) [Entitic vol] 108 fL High 80-[address] [facility] Comment on above: Performed By: #### 5 902-2 #### ANA M Soler ([id number]) [facility] ([facility]) [address] [place] [address] Monocytes (Bld) [#/Vol] 2.20 x10*3/uL High 0.10-1.[address] [facility] Comment on above: Performed By: #### 5 902-2 #### ANA M Soler ([id number]) [facility] ([facility]) [address] [place] [address] Monocytes/100 WBC (Bld) 11.3 % Normal 2.0-10.[address] [facility] Comment on above: Performed By: #### 5 902-2 #### ANA M Soler ([id number]) [facility] ([facility]) [address] [place] [address] 71369 Neutrophils (Bld) [#/Vol] 15.64 x10*3/uL High 1.20-7.[address] [facility] Comment on above: Result Comment: Perc ent differential counts (%) should be interpreted in the context of the absolute cell counts (cells/uL). Performed By: #### 5 902-2 #### ANA M Soler ([id number]) [facility] ([facility]) [address] [place] [address] Neutrophils/100 WBC (Bld) 80.6 % Normal 40.0-80.[address] [facility] Comment on above: Performed By: #### 5 902-2 #### ANA M Soler ([id number]) [facility] ([facility]) [address] [place] [address] Nucleated RBC/100 WBC (Bld) [Ratio] 0.0 /100 WBCs Normal 0.0-0.[address] [facility] Comment on above: Performed By: #### 5 902-2 #### ANA M Soler ([id number]) [facility] ([facility]) [address] [place] [address] Platelets (Bld) [#/Vol] 193 x10*3/uL Normal 150-[address] [facility] Comment on above: Performed By: #### 5 902-2 #### ANA M Soler ([id number]) [facility] ([facility]) [address] [place] [address] 66161 RBC (Bld) [#/Vol] 3.57 x10*6/uL Low 4.50-5.90 [facility] Comment on above: Performed By: #### 5 902-2 #### ANA M Soler ([id number]) [facility] ([facility]) [address] [place] [address] 46826 WBC (Bld) [#/Vol] 19.4 x10*3/uL High 4.4-11.3 [facility] Comment on above: Performed By: #### 5 902-2 #### ANA M Soler ([id number]) [facility] ([facility]) [address] [place] [address] 75855 Glucose Test strip manual (B ld) [Mass/Vol]on 12-09-2024 Glucose [Mass/Vol] 101 mg/dL High 74 - 99 mg/dL [facility] Interpretation and review of laboratory results Abnormal [facility] Glucose [Mass/Vol] 101 mg/dL High 74-99 [facility] Comment on above: Performed By: #### 5 902-2 #### ANA M Soler ([id number]) [facility] ([facility]) [address] [place] [address] 41764 Hepatic function 2000 panelo n 12-09-2024 Albumin BCP dye [Mass/Vol] 3.2 g/dL Low 3.4 - 5.0 g/dL [facility] ALP [Catalytic activity/Vol] 163 U/L High 33 - 120 U/L [facility] ALT With P-5'-P [Catalytic activity/Vol] 60 U/L High 10 - 52 U/L [facility] AST With P-5'-P [Catalytic activity/Vol] 138 U/L High 9 - 39 U/L [facility] Bilirubin [Mass/Vol] 23.1 mg/dL High 0.0 - 1 .2 mg/dL [facility] Bilirubin.direct [Mass/Vol] 15.9 mg/dL High 0.0 - 0.3 mg/dL [facility] Interpretation and review of laboratory results Abnormal [facility] Protein [Mass/Vol] 5.7 g/dL Low 6.4 - 8.2 g/dL [facility] Albumin BCP dye [Mass/Vol] 3.2 g/dL Low 3.4-5.[address] [facility] Comment on above: Performed By: #### D RUBL #### ANA M Soler ([id number]) [facility] ([facility]) [id number] [place] [address] 43363 ALP [Catalytic activity/Vol] 163 U/L High 33-[address] [facility] Comment on above: Result Comment: CORNELIO VILLANUEVA ICTERUS DETECTED. The result may be falsely elevated due to icterus or other interferents. Clinical correlation is recommended. Repeat testing may be considered. Performed By: #### D RUBL #### ANA M Soler ([id number]) [facility] ([facility]) [id number] [place] [address] 38415 ALT With P-5'-P [Catalytic activity/Vol] 60 U/L High 10-[address] [facility] Comment on above: Result Comment: Kala ents treated with Sulfasalazine may generate falsely decreased results for ALT. Performed By: #### D RUBL #### ANA M Soler ([id number]) [facility] ([facility]) [address] [place] [address] AST With P-5'-P [Catalytic activity/Vol] 138 U/L High 9-[address] [facility] Comment on above: Performed By: #### D RUBL #### ANA M Soler ([id number]) [facility] ([facility]) [address] [place] [address] Bilirubin [Mass/Vol] 23.1 mg/dL High 0.0-1.2 [facility] Comment on above: Performed By: #### D RUBL #### ANA M Soler ([id number]) [facility] ([facility]) [address] [place] [address] Bilirubin.direct [Mass/Vol] 15.9 mg/dL High 0.0-0.[address] [facility] Comment on above: Performed By: #### D RUBL #### ANA M Soler ([id number]) [facility] ([facility]) [address] [place] [address] Protein [Mass/Vol] 5.7 g/dL Low 6.4-8.2 [facility] Comment on above: Performed By: #### D RUBL #### ANA M Soler ([id number]) [facility] ([facility]) [address] [place] [address] Laboratory - Microbiology an d Antimicrobial susceptibilityon 12-09-2024 Bacteria identified Cx Nom (Bld) No growth at 4 days - FINAL REPORT [facility] Magnesiumon 12-09-2024 Magnesium [Mass/Vol] 2.60 mg/dL High 1.60 - 2.40 mg/dL [facility] Magnesium [Mass/Vol] 2.60 mg/dL High 1.60-2.40 [facility] Comment on above: Result Comment: CORNELIO RICH ICTERUS DETECTED. The result may be falsely elevated due to icterus or other interferents. Clinical correlation is recommended. Repeat testing may be considered. Performed By: #### D RUBL #### ANA M Soler ([id number]) [facility] ([facility]) [address] [place], [place] [id number] No Panel Informationon 12-09 Interpretation and review of laboratory results Abnormal [facility] PT and aPTT panel Coag (PPP) on 12-09-2024 aPTT Coag (PPP) [Time] 30 s Un [facility] Work Phone: INR Coag (PPP) [Relative time] 1.9 {INR} High 0.9 - 1.1 [facility] Work Phone: Interpretation and review of laboratory results Abnormal [facility] Work Phone: PT Coag (PPP) [Time] 20.7 s High [facility] Work Phone: [facility] Work Phone: [facility] Work Phone: aPTT Coag (PPP) [Time] 30 s Normal 26-36 [facility] Comment on above: Order Comment: The A PTT is no longer used for monitoring Unfractionated Heparin Therapy. For monitoring Heparin Therapy, use the Heparin Assay. Performed By: #### D RUBL #### ANA M Soler ([id number]) [facility] ([facility]) [address] [place] [address] 98087 INR Coag (PPP) [Relative time] 1.9 High 0.9-1.[address] [facility] Comment on above: Order Comment: The A PTT is no longer used for monitoring Unfractionated Heparin Therapy. For monitoring Heparin Therapy, use the Heparin Assay. Performed By: #### D RUBL #### ANA M Soler ([id number]) [facility] ([facility]) [address] [place] [address] 52494 PT Coag (PPP) [Time] 20.7 s High 9.8-12.4 [facility] Comment on above: Order Comment: The A PTT is no longer used for monitoring Unfractionated Heparin Therapy. For monitoring Heparin Therapy, use the Heparin Assay. Performed By: #### D RUBL #### ANA M Soler ([id number]) [facility] ([facility]) [address] [place] [address] 54336 Phosphateon 12-09-2024 Phosphate [Mass/Vol] 1.9 mg/dL Low 2.5-4.9 [facility] Comment on above: Performed By: #### D RUBL #### ANA M Soler ([id number]) [facility] ([facility]) [address] [place] [address] 84817 Phosphoruson 12-09-2024 Phosphate [Mass/Vol] 1.9 mg/dL Low 2.5 - 4 .9 mg/dL [facility] Smooth muscle Ab IF Ql (S)Or dered By: Bert Mike on 12-09-2024 Interpretation and review of laboratory results Abnormal [facility] Study Interpretation of outs nilesh studyon 12-09-2024 IMAGING IMAGING CHERYL with Reflex to ENAOrdere d By: Gabriele Barbosa on 12-08-2024 Nuclear Ab Hep2 substrate Ql (S) Negative Negative [facility] Antimitochondrial antibodyon 12-08-2024 Mitochondria Ab IF Ql (S) Negative Negative [facility] Work Phone: Basic metabolic 2000 panelon 12-08-2024 Anion gap [Moles/Vol] 16 mmol/L 10 - 2 0 mmol/L [facility] Calcium [Mass/Vol] 8.5 mg/dL Low 8.6 - 10. 6 mg/dL [facility] Chloride [Moles/Vol] 93 mmol/L Low 98 - 10 7 mmol/L [facility] CO2 [Moles/Vol] 27 mmol/L 21 - 32 mmol/L [facility] Creatinine [Mass/Vol] 0.70 mg/dL 0.50 - 1.30 mg/dL [facility] eGFR - PINF [facility] Glucose [Mass/Vol] 88 mg/dL 74 - 99 mg/dL [facility] Interpretation and review of laboratory results Abnormal [facility] Potassium [Moles/Vol] 4.1 mmol/L 3.5 - 5.3 mmol/L [facility] Sodium [Moles/Vol] 132 mmol/L Low 136 - 145 mmol/L [facility] Urea nitrogen [Mass/Vol] 7 mg/dL 6 - 23 mg/dL [facility] Anion gap [Moles/Vol] 16 mmol/L Normal 10-20 [facility] Comment on above: Performed By: #### 1 4979-9 #### ANA M Soler ([id number]) [facility] ([facility]) [address] [place] [address] Calcium [Mass/Vol] 8.5 mg/dL Low 8.6-10.6 [facility] Comment on above: Performed By: #### 1 4979-9 #### ANA M AVINA L ([id number]) [facility] ([facility]) [address] [place] [address] Chloride [Moles/Vol] 93 mmol/L Low 98-107 [facility] Comment on above: Performed By: #### 1 4979-9 #### ANA M AVINA L ([id number]) [facility] ([facility]) [address] [place] [address] CO2 [Moles/Vol] 27 mmol/L Normal 21-32 [facility] Comment on above: Performed By: #### 1 4979-9 #### ANA M AVINA L ([id number]) [facility] ([facility]) [id number] [place] [address] Creatinine [Mass/Vol] 0.70 mg/dL Normal 0.50-1.30 [facility] Comment on above: Performed By: #### 1 4979-9 #### ANA M AVINA L ([id number]) [facility] ([facility]) [address] [place] [address]97 Glomerular filtration rate >90 Normal >[address] [facility] Comment on above: Result Comment: Calc ulations of estimated GFR are performed using the 2020 CKD-EPI Study Refit equation without the race variable for the IDMS-Traceable creatinine methods. https://jasn.asnjournals.org/content/early//ASN.29716 20638 Performed By: #### 1 4979-9 #### ANA M BROWNTZKRYSTAL L ([id number]) [facility] ([facility]) [address] [place] [address] Glucose [Mass/Vol] 88 mg/dL Normal 74-99 [facility] Comment on above: Performed By: #### 1 4979-9 #### ANA M AVINA L ([id number]) [facility] ([facility]) [address] [place] [address] Potassium [Moles/Vol] 4.1 mmol/L Normal 3.5-5.3 [facility] Comment on above: Performed By: #### 1 4979-9 #### ANA M INMANER L ([id number]) [facility] ([facility]) [address] [place] [address] Sodium [Moles/Vol] 132 mmol/L Low 136-145 [facility] Comment on above: Performed By: #### 1 4979-9 #### ANA M SCHULTZMOTZER L ([id number]) [facility] ([facility]) [address] [place] [address]78 Urea nitrogen [Mass/Vol] 7 mg/dL Normal 6-[address] [facility] Comment on above: Performed By: #### 1 4979-9 #### ANA M INMANER L ([id number]) [facility] ([facility]) [address] [place] [address]33 CBC W Auto Differential pane l (Bld)on 12-08-2024 Basophils (Bld) [#/Vol] 0.04 10*3/uL [facility] Basophils/100 WBC (Bld) 0.3 % 0.0 - 2.0 % [facility] Eosinophils (Bld) [#/Vol] 0.15 10*3/uL [facility] Eosinophils/100 WBC (Bld) 1.2 % 0.0 - 6.0 % [facility] Erythrocyte distribution width (RBC) [Ratio] 18.0 % High 11.5 - 14.5 % [facility] Hematocrit (Bld) [Volume fraction] 32.6 % Low 41.0 - 52.0 % [facility] Hemoglobin (Bld) [Mass/Vol] 11.6 g/dL Low 13.5 - 17.5 g/dL [facility] Immature granulocytes (Bld) [#/Vol] 0.12 10*3/uL [facility] Immature granulocytes/100 WBC (Bld) 1.0 % High 0.0 - 0.9 % [facility] Interpretation and review of laboratory results Abnormal [facility] Lymphocytes (Bld) [#/Vol] 1.08 10*3/uL Low [facility] Lymphocytes/100 WBC (Bld) 8.6 % 13.0 - 44.0 % [facility] MCH (RBC) [Entitic mass] 38.8 pg High 26.0 - 34.0 pg [facility] MCHC (RBC) [Mass/Vol] 35.6 g/dL 32.0 - 36.0 g/dL [facility] MCV (RBC) [Entitic vol] 109 fL High 80 - 100 fL [facility] Monocytes (Bld) [#/Vol] 1.62 10*3/uL High [facility] Monocytes/100 WBC (Bld) 12.9 % 2.0 - 10.0 % [facility] Neutrophils (Bld) [#/Vol] 9.57 10*3/uL High [facility] Neutrophils/100 WBC (Bld) 76.0 % 40.0 - 80.0 % [facility] Nucleated RBC/100 WBC (Bld) [Ratio] 0.0 % [facility] Platelets (Bld) [#/Vol] 129 10*3/uL Low [facility] RBC (Bld) [#/Vol] 2.99 10*6/uL Low [facility] WBC (Bld) [#/Vol] 12.6 10*3/uL High [facility] Basophils (Bld) [#/Vol] 0.04 x10*3/uL Normal 0.00-0.[address] [facility] Comment on above: Performed By: #### 5 902-2 #### ANA M Soler ([id number]) [facility] ([facility]) [address] [place] [address] Basophils/100 WBC (Bld) 0.3 % Normal 0.0-2.[address] [facility] Comment on above: Performed By: #### 5 902-2 #### ANA M Soler ([id number]) [facility] ([facility]) [address] [place] [address] Eosinophils (Bld) [#/Vol] 0.15 x10*3/uL Normal 0.00-0.[address] [facility] Comment on above: Performed By: #### 5 902-2 #### ANA M Soler ([id number]) [facility] ([facility]) [address] [place] [address] Eosinophils/100 WBC (Bld) 1.2 % Normal 0.0-6.[address] [facility] Comment on above: Performed By: #### 5 902-2 #### ANA M Soler ([id number]) [facility] ([facility]) [address] [place] [address] 46434 Erythrocyte distribution width (RBC) [Ratio] 18.0 % High 11.5-14.[address] [facility] Comment on above: Performed By: #### 5 902-2 #### ANA M Soler ([id number]) [facility] ([facility]) [address] [place] [address] Hematocrit (Bld) [Volume fraction] 32.6 % Low 41.0-52.[address] [facility] Comment on above: Performed By: #### 5 902-2 #### ANA M Soler ([id number]) [facility] ([facility]) [address] [place] [address] 97718 Hemoglobin (Bld) [Mass/Vol] 11.6 g/dL Low 13.5-17.[address] [facility] Comment on above: Performed By: #### 5 902-2 #### ANA M AVINA L ([id number]) [facility] ([facility]) [address] [place] [address] 61684 Immature granulocytes (Bld) [#/Vol] 0.12 x10*3/uL Normal 0.00-0.[address] [facility] Comment on above: Performed By: #### 5 902-2 #### ANA M Soler ([id number]) [facility] ([facility]) [address] [place] [address]111 Immature granulocytes/100 WBC (Bld) 1.0 % High 0.0-0.[address] [facility] Comment on above: Result Comment: Johanna ture Granulocyte Count (IG) includes promyelocytes, myelocytes and metamyelocytes but does not include bands. Percent differential counts (%) should be interpreted in the context of the absolute cell counts (cells/UL). Performed By: #### 5 902-2 #### ANA M Soler ([id number]) [facility] ([facility]) [address] [place] [address] 41777 Lymphocytes (Bld) [#/Vol] 1.08 x10*3/uL Low 1.20-4.[address] [facility] Comment on above: Performed By: #### 5 902-2 #### ANA M Soler ([id number]) [facility] ([facility]) [address] [place] [address] 64627 Lymphocytes/100 WBC (Bld) 8.6 % Normal 13.0-44.[address] [facility] Comment on above: Performed By: #### 5 902-2 #### ANA M Soler ([id number]) [facility] ([facility]) [address] [place] [address] 46460 MCH (RBC) [Entitic mass] 38.8 pg High 26.0-34.[address] [facility] Comment on above: Performed By: #### 5 902-2 #### ANA M Soler ([id number]) [facility] ([facility]) [address] [place] [address] 58297 MCHC (RBC) [Mass/Vol] 35.6 g/dL Normal 32.0-36.0 [facility] Comment on above: Performed By: #### 5 902-2 #### ANA M Soler ([id number]) [facility] ([facility]) [address] [place] [address] 44406 MCV (RBC) [Entitic vol] 109 fL High 80-[address] [facility] Comment on above: Performed By: #### 5 902-2 #### ANA M Soler ([id number]) [facility] ([facility]) [address] [place] [address] Monocytes (Bld) [#/Vol] 1.62 x10*3/uL High 0.10-1.[address] [facility] Comment on above: Performed By: #### 5 902-2 #### ANA M BROWNTZER L ([id number]) [facility] ([facility]) [address] [place] [address] Monocytes/100 WBC (Bld) 12.9 % Normal 2.0-10.[address] [facility] Comment on above: Performed By: #### 5 902-2 #### ANA M INMANER L ([id number]) [facility] ([facility]) [address] [place] [address] 07983 Neutrophils (Bld) [#/Vol] 9.57 x10*3/uL High 1.20-7.[address] [facility] Comment on above: Result Comment: Perc ent differential counts (%) should be interpreted in the context of the absolute cell counts (cells/uL). Performed By: #### 5 902-2 #### ANA M INMANER L ([id number]) [facility] ([facility]) [address] [place] [address] 19250 Neutrophils/100 WBC (Bld) 76.0 % Normal 40.0-80.[address] [facility] Comment on above: Performed By: #### 5 902-2 #### ANA M SCHULTZMOFLORECITAER L ([id number]) [facility] ([facility]) [address] [place] [address] Nucleated RBC/100 WBC (Bld) [Ratio] 0.0 /100 WBCs Normal 0.0-0.[address] [facility] Comment on above: Performed By: #### 5 902-2 #### ANA M BROWNTZER L ([id number]) [facility] ([facility]) [address] [place] [address] 58853 Platelets (Bld) [#/Vol] 129 x10*3/uL Low 150-[address] [facility] Comment on above: Performed By: #### 5 902-2 #### ANA M SCHULTZMOANA L ([id number]) [facility] ([facility]) [address] [place] [address] 24378 RBC (Bld) [#/Vol] 2.99 x10*6/uL Low 4.50-5.90 [facility] Comment on above: Performed By: #### 5 902-2 #### ANA M Soler ([id number]) [facility] ([facility]) [address] [place] [address] 01817 WBC (Bld) [#/Vol] 12.6 x10*3/uL High 4.4-11.3 [facility] Comment on above: Performed By: #### 5 902-2 #### ANA M Soler ([id number]) [facility] ([facility]) [address] [place] [address] 54784 Extra Urine Underwood TubeOrdered By: Kishore Alvarez on 12-08-2024 [facility] Work Phone: Glucose Test strip manual (B ld) [Mass/Vol]on 12-08-2024 Glucose [Mass/Vol] 145 mg/dL High 74 - 99 mg/dL [facility] Interpretation and review of laboratory results Abnormal [facility] Glucose [Mass/Vol] 145 mg/dL High 74-99 [facility] Comment on above: Performed By: #### 5 902-2 #### ANA M Soler ([id number]) [facility] ([facility]) [address] [place] [address] 36802 Glucose [Mass/Vol] 131 mg/dL High 74 - 99 mg/dL [facility] Interpretation and review of laboratory results Abnormal [facility] Glucose [Mass/Vol] 131 mg/dL High 74-99 [facility] Comment on above: Performed By: #### 5 902-2 #### ANA M Soler ([id number]) [facility] ([facility]) [address] [place] [address] 81607 Hepatic function 2000 panelo n 12-08-2024 Albumin BCP dye [Mass/Vol] 3.1 g/dL Low 3.4 - 5.0 g/dL [facility] ALP [Catalytic activity/Vol] 359 U/L High 33 - 120 U/L [facility] ALT With P-5'-P [Catalytic activity/Vol] 50 U/L 10 - 52 U/L [facility] AST With P-5'-P [Catalytic activity/Vol] 130 U/L High 9 - 39 U/L [facility] Bilirubin [Mass/Vol] 21.0 mg/dL High 0.0 - 1 .2 mg/dL [facility] Bilirubin.direct [Mass/Vol] 14.4 mg/dL High 0.0 - 0.3 mg/dL [facility] Interpretation and review of laboratory results Abnormal [facility] Protein [Mass/Vol] 5.7 g/dL Low 6.4 - 8.2 g/dL [facility] Albumin BCP dye [Mass/Vol] 3.1 g/dL Low 3.4-5.[address] [facility] Comment on above: Performed By: #### 5 902-2 #### ANA M Soler ([id number]) [facility] ([facility]) [address] [place] [address] 68303 ALP [Catalytic activity/Vol] 359 U/L High 33-[address] [facility] Comment on above: Performed By: #### 5 902-2 #### ANA M Soler ([id number]) [facility] ([facility]) [address] [place] [address] 47274 ALT With P-5'-P [Catalytic activity/Vol] 50 U/L Normal 10-[address] [facility] Comment on above: Result Comment: Kala ents treated with Sulfasalazine may generate falsely decreased results for ALT. Performed By: #### 5 902-2 #### ANA M Soler ([id number]) [facility] ([facility]) [address] [place] [address] 51068 AST With P-5'-P [Catalytic activity/Vol] 130 U/L High 9-[address] [facility] Comment on above: Performed By: #### 5 902-2 #### ANA M Soler ([id number]) [facility] ([facility]) [address] [place] [address] 44610 Bilirubin [Mass/Vol] 21.0 mg/dL High 0.0-1.2 [facility] Comment on above: Performed By: #### 5 902-2 #### ANA M Soler ([id number]) [facility] ([facility]) [address] [place] [address] 64890 Bilirubin.direct [Mass/Vol] 14.4 mg/dL High 0.0-0.[address] [facility] Comment on above: Performed By: #### 5 902-2 #### ANA M Soler ([id number]) [facility] ([facility]) [address] [place] [address] 88488 Protein [Mass/Vol] 5.7 g/dL Low 6.4-8.2 [facility] Comment on above: Performed By: #### 5 902-2 #### ANA M Soler ([id number]) [facility] ([facility]) [address] [place] [address] 95545 Magnesiumon 12-08-2024 Magnesium [Mass/Vol] 2.44 mg/dL High 1.60 - 2.40 mg/dL [facility] Magnesium [Mass/Vol] 2.44 mg/dL High 1.60-2.40 [facility] Comment on above: Performed By: #### 5 902-2 #### ANA M Soler ([id number]) [facility] ([facility]) [address] [place] [address] 20256 Magnesium [Mass/Vol]on 12-08 Interpretation and review of laboratory results Abnormal [facility] Mitochondria Ab IF Ql (S)on 12-08-2024 Interpretation and review of laboratory results Normal [facility] Work Phone: [facility] Work Phone: Nuclear Ab Hep2 substrate Ql (S)Ordered By: Gabriele Barbosa on 12-08-2024 Interpretation and review of laboratory results Normal [facility] PT and aPTT panel Coag (PPP) Ordered By: Beni Healy on 12-08-2024 aPTT Coag (PPP) [Time] 31 s [facility] INR Coag (PPP) [Relative time] 1.7 {INR} High 0.9 - 1.1 [facility] Interpretation and review of laboratory results Abnormal [facility] PT Coag (PPP) [Time] 19.3 s High [facility] PT and aPTT panel Coag (PPP) on 12-08-2024 aPTT Coag (PPP) [Time] 31 s Normal 26-36 [facility] Comment on above: Order Comment: The A PTT is no longer used for monitoring Unfractionated Heparin Therapy. For monitoring Heparin Therapy, use the Heparin Assay. Performed By: #### 1 4979-9 #### ANA M Soler ([id number]) [facility] ([facility]) [address] [place] [address] 57534 INR Coag (PPP) [Relative time] 1.7 High 0.9-1.[address] [facility] Comment on above: Order Comment: The A PTT is no longer used for monitoring Unfractionated Heparin Therapy. For monitoring Heparin Therapy, use the Heparin Assay. Performed By: #### 1 4979-9 #### ANA M Soler ([id number]) [facility] ([facility]) [address] [place] [address] 32846 PT Coag (PPP) [Time] 19.3 s High 9.8-12.4 [facility] Comment on above: Order Comment: The A PTT is no longer used for monitoring Unfractionated Heparin Therapy. For monitoring Heparin Therapy, use the Heparin Assay. Performed By: #### 1 4979-9 #### ANA M Soler ([id number]) [facility] ([facility]) [address] [place] [address] 63052 Phosphateon 12-08-2024 Phosphate [Mass/Vol] 2.3 mg/dL Low 2.5-4.9 [facility] Comment on above: Performed By: #### 5 902-2 #### ANA M BROWNANA Soler ([id number]) [facility] ([facility]) [address] [place] [address] Phosphate [Mass/Vol]on 12-08 Interpretation and review of laboratory results Abnormal [facility] Phosphoruson 12-08-2024 Phosphate [Mass/Vol] 2.3 mg/dL Low 2.5 - 4 .9 mg/dL [facility] US GUIDED ABDOMINAL PARACENT ESISon 12-08-2024 US GUIDED ABDOMINAL PARACENTESIS Interpreted By: Dominguez Palacios, STUDY: US GUIDED ABDOMINAL PARACENTESIS; 54:45 pm INDICATION: Signs/Symptoms:Paracentes is. COMPARISON: None. ACCESSION NUMBER(S): [id number] ORDERING CLINICIAN: BRIANNA SINGH TECHNIQUE: INTERVENTIONALIST(S): Dominguez [...] a right-sided paracentesis was performed. A 5 [place]er One-Step paracentesis needle/catheter was then placed where [...] the entire procedure. Performed and dictated at [facility]. Signed by: Dominguez Palacios 12/10/2024 4:46 PM Dictation workstation: [id number] Normal [facility] Anti-neutrophilic cytoplasmi c antibodyon 12-07-2024 Neutrophil cytoplasmic Ab pattern IF (S) [Interp] Not detected None Detected [facility] Neutrophil cytoplasmic IgG IF (S) [Titer] <1:20 [facility] Basic metabolic 2000 panelon 12-07-2024 Anion gap [Moles/Vol] 12 mmol/L 10 - 2 0 mmol/L [facility] Calcium [Mass/Vol] 8.7 mg/dL 8.6 - 10. 6 mg/dL [facility] Chloride [Moles/Vol] 92 mmol/L Low 98 - 10 7 mmol/L [facility] CO2 [Moles/Vol] 32 mmol/L 21 - 32 mmol/L [facility] Creatinine [Mass/Vol] 0.76 mg/dL 0.50 - 1.30 mg/dL [facility] eGFR - PINF [facility] Glucose [Mass/Vol] 89 mg/dL 74 - 99 mg/dL [facility] Interpretation and review of laboratory results Abnormal [facility] Potassium [Moles/Vol] 3.5 mmol/L 3.5 - 5.3 mmol/L [facility] Sodium [Moles/Vol] 132 mmol/L Low 136 - 145 mmol/L [facility] Urea nitrogen [Mass/Vol] 9 mg/dL 6 - 23 mg/dL [facility] Anion gap [Moles/Vol] 12 mmol/L Normal 10-20 [facility] Comment on above: Performed By: #### 1 4979-9 #### ANA M Soler ([id number]) [facility] ([facility]) [address] [place] [address] Calcium [Mass/Vol] 8.7 mg/dL Normal 8.6-10.6 [facility] Comment on above: Performed By: #### 1 4979-9 #### ANA M Soler ([id number]) [facility] ([facility]) [address] [place] [address] Chloride [Moles/Vol] 92 mmol/L Low 98-107 [facility] Comment on above: Performed By: #### 1 4979-9 #### ANA M SCHULTZMOTZER L ([id number]) [facility] ([facility]) [address] [place] [address] CO2 [Moles/Vol] 32 mmol/L Normal 21-32 [facility] Comment on above: Performed By: #### 1 4979-9 #### ANA M SCHULTZMOTZER L ([id number]) [facility] ([facility]) [address] [place] [address] Creatinine [Mass/Vol] 0.76 mg/dL Normal 0.50-1.30 [facility] Comment on above: Performed By: #### 1 4979-9 #### ANA M BROWNTZER L ([id number]) [facility] ([facility]) [address] [place] [address] 50271 Glomerular filtration rate >90 Normal >[address] [facility] Comment on above: Result Comment: Calc ulations of estimated GFR are performed using the 2020 CKD-EPI Study Refit equation without the race variable for the IDMS-Traceable creatinine methods. https://jasn.asnjournals.org/content/early//ASN.00980 65972 Performed By: #### 1 4979-9 #### ANA M BROWNTZER L ([id number]) [facility] ([facility]) [address] [place] [address] Glucose [Mass/Vol] 89 mg/dL Normal 74-99 [facility] Comment on above: Performed By: #### 1 4979-9 #### ANA M SCHULTZMOTZER L ([id number]) [facility] ([facility]) [address] [place] [address] Potassium [Moles/Vol] 3.5 mmol/L Normal 3.5-5.3 [facility] Comment on above: Performed By: #### 1 4979-9 #### ANA M Soler ([id number]) [facility] ([facility]) [address] [place] [address] Sodium [Moles/Vol] 132 mmol/L Low 136-145 [facility] Comment on above: Performed By: #### 1 4979-9 #### ANA M Soler ([id number]) [facility] ([facility]) [address] [place] [address] Urea nitrogen [Mass/Vol] 9 mg/dL Normal - [facility] Comment on above: Performed By: #### 1 4979-9 #### ANA M Soler ([id number]) [facility] ([facility]) [id number] [place], [place] [id number] CBC W Auto Differential pane l (Bld)on 12-07-2024 Basophils (Bld) [#/Vol] 0.06 10*3/uL [facility] Basophils/100 WBC (Bld) 0.4 % 0.0 - 2.0 % [facility] Eosinophils (Bld) [#/Vol] 0.13 10*3/uL [facility] Eosinophils/100 WBC (Bld) 1.0 % 0.0 - 6.0 % [facility] Erythrocyte distribution width (RBC) [Ratio] 18.0 % High 11.5 - 14.5 % [facility] Hematocrit (Bld) [Volume fraction] 36.7 % Low 41.0 - 52.0 % [facility] Hemoglobin (Bld) [Mass/Vol] 12.8 g/dL Low 13.5 - 17.5 g/dL [facility] Immature granulocytes (Bld) [#/Vol] 0.16 10*3/uL [facility] Immature granulocytes/100 WBC (Bld) 1.2 % High 0.0 - 0.9 % [facility] Interpretation and review of laboratory results Abnormal [facility] Lymphocytes (Bld) [#/Vol] 1.68 10*3/uL [facility] Lymphocytes/100 WBC (Bld) 12.5 % 13.0 - 44.0 % [facility] MCH (RBC) [Entitic mass] 38.3 pg High 26.0 - 34.0 pg [facility] MCHC (RBC) [Mass/Vol] 34.9 g/dL 32.0 - 36.0 g/dL [facility] MCV (RBC) [Entitic vol] 110 fL High 80 - 100 fL [facility] Monocytes (Bld) [#/Vol] 1.41 10*3/uL [facility] Monocytes/100 WBC (Bld) 10.5 % 2.0 - 10.0 % [facility] Neutrophils (Bld) [#/Vol] 10.01 10*3/uL [facility] Neutrophils/100 WBC (Bld) 74.4 % 40.0 - 80.0 % [facility] Nucleated RBC/100 WBC (Bld) [Ratio] 0.1 % [facility] Platelets (Bld) [#/Vol] 121 10*3/uL Low [facility] RBC (Bld) [#/Vol] 3.34 10*6/uL Low [facility] WBC (Bld) [#/Vol] 13.5 10*3/uL High [facility] Basophils (Bld) [#/Vol] 0.06 x10*3/uL Normal 0.00-0.[address] [facility] Comment on above: Performed By: #### 2 4339-4 #### ANA M Soler ([id number]) [facility] ([facility]) [address] [place] [address] Basophils/100 WBC (Bld) 0.4 % Normal 0.0-2.[address] [facility] Comment on above: Performed By: #### 2 4339-4 #### ANA M Soler ([id number]) [facility] ([facility]) [address] [place] [address] Eosinophils (Bld) [#/Vol] 0.13 x10*3/uL Normal 0.00-0.[address] [facility] Comment on above: Performed By: #### 2 4339-4 #### ANA M Soler ([id number]) [facility] ([facility]) [address] [place] [address] 01856 Eosinophils/100 WBC (Bld) 1.0 % Normal 0.0-6.[address] [facility] Comment on above: Performed By: #### 2 4339-4 #### ANA M Soler ([id number]) [facility] ([facility]) [address] [place] [address] 40840 Erythrocyte distribution width (RBC) [Ratio] 18.0 % High 11.5-14.[address] [facility] Comment on above: Performed By: #### 2 4339-4 #### ANA M Soler ([id number]) [facility] ([facility]) [address] [place] [address] 54933 Hematocrit (Bld) [Volume fraction] 36.7 % Low 41.0-52.[address] [facility] Comment on above: Performed By: #### 2 4339-4 #### ANA M Soler ([id number]) [facility] ([facility]) [address] [place] [address] 44777 Hemoglobin (Bld) [Mass/Vol] 12.8 g/dL Low 13.5-17.[address] [facility] Comment on above: Performed By: #### 2 4339-4 #### ANA M Soler ([id number]) [facility] ([facility]) [address] [place] [address] 76209 Immature granulocytes (Bld) [#/Vol] 0.16 x10*3/uL Normal 0.00-0.[address] [facility] Comment on above: Performed By: #### 2 4339-4 #### ANA M Soler ([id number]) [facility] ([facility]) [address] [place] [address] 60492 Immature granulocytes/100 WBC (Bld) 1.2 % High 0.0-0.[address] [facility] Comment on above: Result Comment: Johanna ture Granulocyte Count (IG) includes promyelocytes, myelocytes and metamyelocytes but does not include bands. Percent differential counts (%) should be interpreted in the context of the absolute cell counts (cells/UL). Performed By: #### 2 4339-4 #### ANA M Soler ([id number]) [facility] ([facility]) [address] [place] [address] 24337 Lymphocytes (Bld) [#/Vol] 1.68 x10*3/uL Normal 1.20-4.[address] [facility] Comment on above: Performed By: #### 2 4339-4 #### ANA M Soler ([id number]) [facility] ([facility]) [address] [place] [address] 47427 Lymphocytes/100 WBC (Bld) 12.5 % Normal 13.0-44.[address] [facility] Comment on above: Performed By: #### 2 4339-4 #### ANA M Soler ([id number]) [facility] ([facility]) [address] [place] [address] 02466 MCH (RBC) [Entitic mass] 38.3 pg High 26.0-34.[address] [facility] Comment on above: Performed By: #### 2 4339-4 #### ANA M Soler ([id number]) [facility] ([facility]) [address] [place] [address] 61865 MCHC (RBC) [Mass/Vol] 34.9 g/dL Normal 32.0-36.0 [facility] Comment on above: Performed By: #### 2 4339-4 #### ANA M Soler ([id number]) [facility] ([facility]) [address] [place] [address] 85422 MCV (RBC) [Entitic vol] 110 fL High 80-[address] [facility] Comment on above: Performed By: #### 2 4339-4 #### ANA M Soler ([id number]) [facility] ([facility]) [address] [place] [address] 17807 Monocytes (Bld) [#/Vol] 1.41 x10*3/uL High 0.10-1.[address] [facility] Comment on above: Performed By: #### 2 4339-4 #### ANA M Soler ([id number]) [facility] ([facility]) [address] [place] [address] Monocytes/100 WBC (Bld) 10.5 % Normal 2.0-10.[address] [facility] Comment on above: Performed By: #### 2 4339-4 #### ANA M Soler ([id number]) [facility] ([facility]) [address] [place] [address] 46392 Neutrophils (Bld) [#/Vol] 10.01 x10*3/uL High 1.20-7.[address] [facility] Comment on above: Result Comment: Perc ent differential counts (%) should be interpreted in the context of the absolute cell counts (cells/uL). Performed By: #### 2 4339-4 #### ANA M Soler ([id number]) [facility] ([facility]) [address] [place] [address] 70070 Neutrophils/100 WBC (Bld) 74.4 % Normal 40.0-80.[address] [facility] Comment on above: Performed By: #### 2 4339-4 #### ANA M Soler ([id number]) [facility] ([facility]) [address] [place] [address] 65918 Nucleated RBC/100 WBC (Bld) [Ratio] 0.1 /100 WBCs High 0.0-0.[address] [facility] Comment on above: Performed By: #### 2 4339-4 #### ANA M Soler ([id number]) [facility] ([facility]) [address] [place] [address] 85589 Platelets (Bld) [#/Vol] 121 x10*3/uL Low 150-[address] [facility] Comment on above: Performed By: #### 2 4339-4 #### ANA M Soler ([id number]) [facility] ([facility]) [address] [place] [address] 02428 RBC (Bld) [#/Vol] 3.34 x10*6/uL Low 4.50-5.90 [facility] Comment on above: Performed By: #### 2 4339-4 #### ANA M Soler ([id number]) [facility] ([facility]) [address] [place] [address] WBC (Bld) [#/Vol] 13.5 x10*3/uL High 4.4-11.3 [facility] Comment on above: Performed By: #### 2 4339-4 #### ANA M Soler ([id number]) [facility] ([facility]) [address] [place] [address] Hepatic function 2000 panelo n 12-07-2024 Albumin BCP dye [Mass/Vol] 3.4 g/dL 3.4 - 5.0 g/dL [facility] ALP [Catalytic activity/Vol] 168 U/L High 33 - 120 U/L [facility] ALT With P-5'-P [Catalytic activity/Vol] 54 U/L High 10 - 52 U/L [facility] AST With P-5'-P [Catalytic activity/Vol] 128 U/L High 9 - 39 U/L [facility] Bilirubin [Mass/Vol] 20.2 mg/dL High 0.0 - 1 .2 mg/dL [facility] Bilirubin.direct [Mass/Vol] 13.5 mg/dL High 0.0 - 0.3 mg/dL [facility] Interpretation and review of laboratory results Abnormal [facility] Protein [Mass/Vol] 6.0 g/dL Low 6.4 - 8.2 g/dL [facility] Albumin BCP dye [Mass/Vol] 3.4 g/dL Normal 3.4-5.[address] [facility] Comment on above: Performed By: #### 1 4979-9 #### ANA M Soler ([id number]) [facility] ([facility]) [address] [place], [place] [address] ALP [Catalytic activity/Vol] 168 U/L High 33-[address] [facility] Comment on above: Performed By: #### 1 4979-9 #### ANA M Soler ([id number]) [facility] ([facility]) [address] [place] [address] ALT With P-5'-P [Catalytic activity/Vol] 54 U/L High 10-[address] [facility] Comment on above: Result Comment: Kala ents treated with Sulfasalazine may generate falsely decreased results for ALT. Performed By: #### 1 4979-9 #### ANA M Soler ([id number]) [facility] ([facility]) [address] [place] [address] AST With P-5'-P [Catalytic activity/Vol] 128 U/L High 9-[address] [facility] Comment on above: Performed By: #### 1 4979-9 #### ANA M Soler ([id number]) [facility] ([facility]) [address] [place] [address] Bilirubin [Mass/Vol] 20.2 mg/dL High 0.0-1.2 [facility] Comment on above: Performed By: #### 1 4979-9 #### ANA M Soler ([id number]) [facility] ([facility]) [address] [place] [address] Bilirubin.direct [Mass/Vol] 13.5 mg/dL High 0.0-0.[address] [facility] Comment on above: Performed By: #### 1 4979-9 #### ANA M Soler ([id number]) [facility] ([facility]) [address] [place] [address] 79279 Protein [Mass/Vol] 6.0 g/dL Low 6.4-8.2 [facility] Comment on above: Performed By: #### 1 4979-9 #### ANA M Soler ([id number]) [facility] ([facility]) [address] [place] [address] 83836 Liver kidney microsomal Ab I F (S) [Titer]on 12-07-2024 [facility] Liver/Kidney Microsome Type 1 Antibodies, Serumon 12-07-2024 Liver kidney microsomal Ab IF (S) [Titer] <1:20 [facility] Magnesiumon 12-07-2024 Magnesium [Mass/Vol] 2.45 mg/dL High 1.60 - 2.40 mg/dL [facility] Magnesium [Mass/Vol] 2.45 mg/dL High 1.60-2.40 [facility] Comment on above: Performed By: #### 1 4979-9 #### ANA M Soler ([id number]) [facility] ([facility]) [address] [place], [place] [address] No Panel Informationon 12-07 Interpretation and review of laboratory results Abnormal [facility] PT and aPTT panel Coag (PPP) on 12-07-2024 aPTT Coag (PPP) [Time] 29 s Un [facility] INR Coag (PPP) [Relative time] 1.5 {INR} High 0.9 - 1.1 [facility] Interpretation and review of laboratory results Abnormal [facility] PT Coag (PPP) [Time] 17.1 s High [facility] aPTT Coag (PPP) [Time] 29 s Normal 26-36 [facility] Comment on above: Order Comment: The A PTT is no longer used for monitoring Unfractionated Heparin Therapy. For monitoring Heparin Therapy, use the Heparin Assay. Performed By: #### 2 4339-4 #### ANA M Soler ([id number]) [facility] ([facility]) [address] [place] [address] 20629 INR Coag (PPP) [Relative time] 1.5 High 0.9-1.[address] [facility] Comment on above: Order Comment: The A PTT is no longer used for monitoring Unfractionated Heparin Therapy. For monitoring Heparin Therapy, use the Heparin Assay. Performed By: #### 2 4339-4 #### ANA M Soler ([id number]) [facility] ([facility]) [address] [place] [address] 16191 PT Coag (PPP) [Time] 17.1 s High 9.8-12.4 [facility] Comment on above: Order Comment: The A PTT is no longer used for monitoring Unfractionated Heparin Therapy. For monitoring Heparin Therapy, use the Heparin Assay. Performed By: #### 2 4339-4 #### ANA M Soler ([id number]) [facility] ([facility]) [address] [place] [address] Phosphateon 12-07-2024 Phosphate [Mass/Vol] 1.8 mg/dL Low 2.5-4.9 [facility] Comment on above: Performed By: #### 1 4979-9 #### ANA M Soler ([id number]) [facility] ([facility]) [address] [place] [address] 68119 Phosphatidylethanol (PEth), Whole Blood, Quantitativeon 12-07-2024 Laboratory comment Christopher (Report) See Comment [facility] Laboratory report See Note [facility] PEth 16:0/18:1 (POPEth) 1576 ng/mL [facility] PEth 16:0/18:2 (PLPEth) 1798 ng/mL [facility] Phosphoruson 12-07-2024 Phosphate [Mass/Vol] 1.8 mg/dL Low 2.5 - 4 .9 mg/dL [facility] Vascular US abdomen/pelvis d uplex completeon 12-07-2024 [facility] MM[facility]AL [facility] Work Phone: Radiology Study observation (narrative) [facility] Work Phone: Vascular US abdomen/pelvis d uplex completeOrdered By: Houston Avalos on 12-07-2024 [facility] Work Phone: Basic metabolic 2000 panelon 12-06-2024 Anion gap [Moles/Vol] 12 mmol/L 10 - 2 0 mmol/L [facility] Calcium [Mass/Vol] 8.1 mg/dL Low 8.6 - 10. 6 mg/dL [facility] Chloride [Moles/Vol] 91 mmol/L Low 98 - 10 7 mmol/L [facility] CO2 [Moles/Vol] 31 mmol/L 21 - 32 mmol/L [facility] Creatinine [Mass/Vol] 0.63 mg/dL 0.50 - 1.30 mg/dL [facility] eGFR - PINF [facility] Glucose [Mass/Vol] 99 mg/dL 74 - 99 mg/dL [facility] Interpretation and review of laboratory results Abnormal [facility] Potassium [Moles/Vol] 3.1 mmol/L Low 3.5 - 5.3 mmol/L [facility] Sodium [Moles/Vol] 131 mmol/L Low 136 - 145 mmol/L [facility] Urea nitrogen [Mass/Vol] 11 mg/dL 6 - 23 mg/dL [facility] Anion gap [Moles/Vol] 12 mmol/L Normal 10-20 [facility] Comment on above: Performed By: #### 2 4339-4 #### ANA M AVINA L ([id number]) [facility] ([facility]) [address] [place] [address] 76642 Calcium [Mass/Vol] 8.1 mg/dL Low 8.6-10.6 [facility] Comment on above: Performed By: #### 2 4339-4 #### ANA M AVINA L ([id number]) [facility] ([facility]) [address] [place] [address] 86209 Chloride [Moles/Vol] 91 mmol/L Low 98-107 [facility] Comment on above: Performed By: #### 2 4339-4 #### ANA M SCHULTZMOTZER L ([id number]) [facility] ([facility]) [address] [place] [address] 54996 CO2 [Moles/Vol] 31 mmol/L Normal 21-32 [facility] Comment on above: Performed By: #### 2 4339-4 #### ANA M AVINA L ([id number]) [facility] ([facility]) [address] [place] [address] 07781 Creatinine [Mass/Vol] 0.63 mg/dL Normal 0.50-1.30 [facility] Comment on above: Performed By: #### 2 4339-4 #### ANA M AVINA L ([id number]) [facility] ([facility]) [address] [place] [address] 71219 Glomerular filtration rate >90 Normal >[address] [facility] Comment on above: Result Comment: Calc ulations of estimated GFR are performed using the 2020 CKD-EPI Study Refit equation without the race variable for the IDMS-Traceable creatinine methods. https://jasn.asnjournals.org/content//ASN.15972 94747 Performed By: #### 2 4339-4 #### ANA M Soler ([id number]) [facility] ([facility]) [address] [place] [address] 17537 Glucose [Mass/Vol] 99 mg/dL Normal 74-99 [facility] Comment on above: Performed By: #### 2 4339-4 #### ANA M Soler ([id number]) [facility] ([facility]) [address] [place] [address] 33333 Potassium [Moles/Vol] 3.1 mmol/L Low 3.5-5.3 [facility] Comment on above: Performed By: #### 2 4339-4 #### ANA M Soler ([id number]) [facility] ([facility]) [address] [place] [address] 96637 Sodium [Moles/Vol] 131 mmol/L Low 136-145 [facility] Comment on above: Performed By: #### 2 4339-4 #### ANA M Soler ([id number]) [facility] ([facility]) [address] [place] [address] 00138 Urea nitrogen [Mass/Vol] 11 mg/dL Normal 6-[address] [facility] Comment on above: Performed By: #### 2 4339-4 #### ANA M Soler ([id number]) [facility] ([facility]) [address] [place] [address] 21372 CBC W Auto Differential pane l (Bld)on 12-06-2024 Basophils (Bld) [#/Vol] 0.03 10*3/uL [facility] Basophils/100 WBC (Bld) 0.3 % 0.0 - 2.0 % [facility] Eosinophils (Bld) [#/Vol] 0.11 10*3/uL [facility] Eosinophils/100 WBC (Bld) 1.1 % 0.0 - 6.0 % [facility] Erythrocyte distribution width (RBC) [Ratio] 17.3 % High 11.5 - 14.5 % [facility] Hematocrit (Bld) [Volume fraction] 33.2 % Low 41.0 - 52.0 % [facility] Hemoglobin (Bld) [Mass/Vol] 11.4 g/dL Low 13.5 - 17.5 g/dL [facility] Immature granulocytes (Bld) [#/Vol] 0.06 10*3/uL [facility] Immature granulocytes/100 WBC (Bld) 0.6 % 0.0 - 0.9 % [facility] Interpretation and review of laboratory results Abnormal [facility] Lymphocytes (Bld) [#/Vol] 1.09 10*3/uL Low [facility] Lymphocytes/100 WBC (Bld) 10.6 % 13.0 - 44.0 % [facility] MCH (RBC) [Entitic mass] 38.1 pg High 26.0 - 34.0 pg [facility] MCHC (RBC) [Mass/Vol] 34.3 g/dL 32.0 - 36.0 g/dL [facility] MCV (RBC) [Entitic vol] 111 fL High 80 - 100 fL [facility] Monocytes (Bld) [#/Vol] 0.89 10*3/uL [facility] Monocytes/100 WBC (Bld) 8.7 % 2.0 - 10.0 % [facility] Neutrophils (Bld) [#/Vol] 8.08 10*3/uL High [facility] Neutrophils/100 WBC (Bld) 78.7 % 40.0 - 80.0 % [facility] Nucleated RBC/100 WBC (Bld) [Ratio] 0.0 % [facility] Platelets (Bld) [#/Vol] 81 10*3/uL Low [facility] RBC (Bld) [#/Vol] 2.99 10*6/uL Low [facility] WBC (Bld) [#/Vol] 10.3 10*3/uL [facility] Basophils (Bld) [#/Vol] 0.03 x10*3/uL Normal 0.00-0.[address] [facility] Comment on above: Performed By: #### 2 4339-4 #### ANA M Soler ([id number]) [facility] ([facility]) [address] [place] [address] 74970 Basophils/100 WBC (Bld) 0.3 % Normal 0.0-2.[address] [facility] Comment on above: Performed By: #### 2 4339-4 #### ANA M Soler ([id number]) [facility] ([facility]) [address] [place] [address] 91919 Eosinophils (Bld) [#/Vol] 0.11 x10*3/uL Normal 0.00-0.[address] [facility] Comment on above: Performed By: #### 2 4339-4 #### ANA M AVINA L ([id number]) [facility] ([facility]) [address] [place] [address] 81708 Eosinophils/100 WBC (Bld) 1.1 % Normal 0.0-6.[address] [facility] Comment on above: Performed By: #### 2 4339-4 #### ANA M Soler ([id number]) [facility] ([facility]) [address] [place] [address] 47181 Erythrocyte distribution width (RBC) [Ratio] 17.3 % High 11.5-14.[address] [facility] Comment on above: Performed By: #### 2 4339-4 #### ANA M AVINA L ([id number]) [facility] ([facility]) [address] [place] [address] 06832 Hematocrit (Bld) [Volume fraction] 33.2 % Low 41.0-52.[address] [facility] Comment on above: Performed By: #### 2 4339-4 #### ANA M AVINA L ([id number]) [facility] ([facility]) [address] [place] [address] Hemoglobin (Bld) [Mass/Vol] 11.4 g/dL Low 13.5-17.[address] [facility] Comment on above: Performed By: #### 2 4339-4 #### ANA M Soler ([id number]) [facility] ([facility]) [address] [place] [address] 59900 Immature granulocytes (Bld) [#/Vol] 0.06 x10*3/uL Normal 0.00-0.[address] [facility] Comment on above: Performed By: #### 2 4339-4 #### ANA M Soler ([id number]) [facility] ([facility]) [address] [place] [address] 45837 Immature granulocytes/100 WBC (Bld) 0.6 % Normal 0.0-0.[address] [facility] Comment on above: Result Comment: Johanna ture Granulocyte Count (IG) includes promyelocytes, myelocytes and metamyelocytes but does not include bands. Percent differential counts (%) should be interpreted in the context of the absolute cell counts (cells/UL). Performed By: #### 2 4339-4 #### ANA M Soler ([id number]) [facility] ([facility]) [address] [place] [address] 84588 Lymphocytes (Bld) [#/Vol] 1.09 x10*3/uL Low 1.20-4.[address] [facility] Comment on above: Performed By: #### 2 4339-4 #### ANA M Soler ([id number]) [facility] ([facility]) [id number] [place] [address] 34919 Lymphocytes/100 WBC (Bld) 10.6 % Normal 13.0-44.[address] [facility] Comment on above: Performed By: #### 2 4339-4 #### ANA M Soler ([id number]) [facility] ([facility]) [address] [place] [address] MCH (RBC) [Entitic mass] 38.1 pg High 26.0-34.[address] [facility] Comment on above: Performed By: #### 2 4339-4 #### ANA M Soler ([id number]) [facility] ([facility]) [address] [place] [address] MCHC (RBC) [Mass/Vol] 34.3 g/dL Normal 32.0-36.0 [facility] Comment on above: Performed By: #### 2 4339-4 #### ANA M Soler ([id number]) [facility] ([facility]) [address] [place] [address] MCV (RBC) [Entitic vol] 111 fL High 80-[address] [facility] Comment on above: Performed By: #### 2 4339-4 #### ANA M Soler ([id number]) [facility] ([facility]) [id number] [place] [id number] Monocytes (Bld) [#/Vol] 0.89 x10*3/uL Normal 0.10-1.[address] [facility] Comment on above: Performed By: #### 2 4339-4 #### ANA M Soler ([id number]) [facility] ([facility]) [address] [place] [address] Monocytes/100 WBC (Bld) 8.7 % Normal 2.0-10.[address] [facility] Comment on above: Performed By: #### 2 4339-4 #### ANA M Soler ([id number]) [facility] ([facility]) [address] [place] [address] Neutrophils (Bld) [#/Vol] 8.08 x10*3/uL High 1.20-7.[address] [facility] Comment on above: Result Comment: Perc ent differential counts (%) should be interpreted in the context of the absolute cell counts (cells/uL). Performed By: #### 2 4339-4 #### ANA M AVINA L ([id number]) [facility] ([facility]) [address] [place] [address] Neutrophils/100 WBC (Bld) 78.7 % Normal 40.0-80.[address] [facility] Comment on above: Performed By: #### 2 4339-4 #### ANA M Soler ([id number]) [facility] ([facility]) [address] [place] [address] 67732 Nucleated RBC/100 WBC (Bld) [Ratio] 0.0 /100 WBCs Normal 0.0-0.[address] [facility] Comment on above: Performed By: #### 2 4339-4 #### ANA M Soler ([id number]) [facility] ([facility]) [address] [place] [address] 33611 Platelets (Bld) [#/Vol] 81 x10*3/uL Low 150-[address] [facility] Comment on above: Performed By: #### 2 4339-4 #### ANA M Soler ([id number]) [facility] ([facility]) [address] [place] [address] 54839 RBC (Bld) [#/Vol] 2.99 x10*6/uL Low 4.50-5.90 [facility] Comment on above: Performed By: #### 2 4339-4 #### ANA M Soler ([id number]) [facility] ([facility]) [address] [place] [address] 76945 WBC (Bld) [#/Vol] 10.3 x10*3/uL Normal 4.4-11.3 [facility] Comment on above: Performed By: #### 2 4339-4 #### ANA M Soler ([id number]) [facility] ([facility]) [address] [place] [address] Head WO contraston 2024 [facility] MMODAL [facility] MMODAL [facility] Work Phone: Radiology Study observation (narrative) [facility] Work Phone: CT Head WO contrastOrdered B y: Ignacio Melissa on 12-06-2024 [facility] Work Phone: Hepatic function 2000 panelo n 12-06-2024 Albumin BCP dye [Mass/Vol] 3.1 g/dL Low 3.4 - 5.0 g/dL [facility] ALP [Catalytic activity/Vol] 154 U/L High 33 - 120 U/L [facility] ALT With P-5'-P [Catalytic activity/Vol] 46 U/L 10 - 52 U/L [facility] AST With P-5'-P [Catalytic activity/Vol] 116 U/L High 9 - 39 U/L [facility] Bilirubin [Mass/Vol] 17.1 mg/dL High 0.0 - 1 .2 mg/dL [facility] Bilirubin.direct [Mass/Vol] 9.6 mg/dL High 0.0 - 0.3 mg/dL [facility] Interpretation and review of laboratory results Abnormal [facility] Protein [Mass/Vol] 5.1 g/dL Low 6.4 - 8.2 g/dL [facility] Albumin BCP dye [Mass/Vol] 3.1 g/dL Low 3.4-5.[address] [facility] Comment on above: Performed By: #### 2 4339-4 #### ANA M Soler ([id number]) [facility] ([facility]) [address] [place] [address] ALP [Catalytic activity/Vol] 154 U/L High 33-[address] [facility] Comment on above: Performed By: #### 2 4339-4 #### ANA M Soler ([id number]) [facility] ([facility]) [address] [place] [address] ALT With P-5'-P [Catalytic activity/Vol] 46 U/L Normal 10-[address] [facility] Comment on above: Result Comment: Kala ents treated with Sulfasalazine may generate falsely decreased results for ALT. Performed By: #### 2 4339-4 #### ANA M Soler ([id number]) [facility] ([facility]) [address] [place] [address] AST With P-5'-P [Catalytic activity/Vol] 116 U/L High 9-[address] [facility] Comment on above: Performed By: #### 2 4339-4 #### ANA M Soler ([id number]) [facility] ([facility]) [address] [place] [address]7074 Bilirubin [Mass/Vol] 17.1 mg/dL High 0.0-1.2 [facility] Comment on above: Performed By: #### 2 4339-4 #### ANA M Soler ([id number]) [facility] ([facility]) [address] [place] [address] 43489 Bilirubin.direct [Mass/Vol] 9.6 mg/dL High 0.0-0.[address] [facility] Comment on above: Performed By: #### 2 4339-4 #### ANA M Soler ([id number]) [facility] ([facility]) [address] [place] [address] 39899 Protein [Mass/Vol] 5.1 g/dL Low 6.4-8.2 [facility] Comment on above: Performed By: #### 2 4339-4 #### ANA M Soler ([id number]) [facility] ([facility]) [address] [place] [address] 40653 Magnesiumon 12-06-2024 Magnesium [Mass/Vol] 2.34 mg/dL 1.60 - 2.40 mg/dL [facility] Magnesium [Mass/Vol] 2.34 mg/dL Normal 1.60-2.40 [facility] Comment on above: Performed By: #### 2 4339-4 #### ANA M Soler ([id number]) [facility] ([facility]) [address] [place] [address] 99089 Magnesium [Mass/Vol]on 12-06 Interpretation and review of laboratory results Normal [facility] No Panel Informationon 12-06 [facility] PT and aPTT panel Coag (PPP) on 12-06-2024 aPTT Coag (PPP) [Time] 28 s Un [facility] INR Coag (PPP) [Relative time] 1.5 {INR} High 0.9 - 1.1 [facility] Interpretation and review of laboratory results Abnormal [facility] PT Coag (PPP) [Time] 17.0 s High [facility] aPTT Coag (PPP) [Time] 28 s Normal 26-36 [facility] Comment on above: Order Comment: The A PTT is no longer used for monitoring Unfractionated Heparin Therapy. For monitoring Heparin Therapy, use the Heparin Assay. Performed By: #### 2 4339-4 #### ANA M Soler ([id number]) [facility] ([facility]) [address] [place] [address] 90205 INR Coag (PPP) [Relative time] 1.5 High 0.9-1.[address] [facility] Comment on above: Order Comment: The A PTT is no longer used for monitoring Unfractionated Heparin Therapy. For monitoring Heparin Therapy, use the Heparin Assay. Performed By: #### 2 4339-4 #### ANA M Soler ([id number]) [facility] ([facility]) [address] [place] [address] 64895 PT Coag (PPP) [Time] 17.0 s High 9.8-12.4 [facility] Comment on above: Order Comment: The A PTT is no longer used for monitoring Unfractionated Heparin Therapy. For monitoring Heparin Therapy, use the Heparin Assay. Performed By: #### 2 4339-4 #### ANA M Soler ([id number]) [facility] ([facility]) [address] [place] [address] 87079 Phosphateon 12-06-2024 Phosphate [Mass/Vol] 2.2 mg/dL Low 2.5-4.9 [facility] Comment on above: Performed By: #### 2 4339-4 #### ANA M oSler ([id number]) [facility] ([facility]) [address] [place] [address] 19856 Phosphate [Mass/Vol]on 12-06 Interpretation and review of laboratory results Abnormal [facility] Phosphoruson 12-06-2024 Phosphate [Mass/Vol] 2.2 mg/dL Low 2.5 - 4 .9 mg/dL [facility] AFB Processedon 2024 Extra Tube Hold for add-ons. [facility] AFP Tumor Markeron 5 AFP [Mass/Vol] 6 ng/mL 0 - 9 ng/mL [facility] AFP [Mass/Vol]on 2024 Interpretation and review of laboratory results Normal [facility] AFP, Tumor Markeron 12-06-19 25 AFP TUMOR CORNELIO 8.7 ng/mL High 0.0-6.9 [facility] Comment on above: Order Comment: N Result Comment: [employer] Electrochemiluminescence Immunoassay (ECLIA) Values obtained with different assay methods or kits cannot be used interchangeably. Results cannot be interpreted as absolute evidence of the presence or absence of malignant disease. This test is not interpretable in females. Performed By: #### L 500.4050, L501.2450, L100.0100 #### [facility] [address] [place], [address] ANTI-NEUTROPHILIC CYTOPLASMI C ANTIBODYon 2024 Neutrophil cytoplasmic Ab pattern IF (S) [Interp] Not detected Normal None Detected [facility] Comment on above: Result Comment: INTE RPRETIVE INFORMATION: ANCA IFA Pattern Neutrophil Cytoplasmic Antibodies (C-ANCA = granular cytoplasmic staining, P-ANCA = perinuclear staining) are found in the serum of over 90 percent of patients with certain necrotizing systemic vasculitides, and usually in less than 5 percent of patients with collagen vascular disease or arthritis. Performed By: [facility] [address] [place] [address]476 Client Solutions Manager: Karthik Farias MD, PhD CLIA Number: [id number] Performed By: #### 1 4979-9 #### ANA M Soler ([id number]) [facility] ([facility]) [address] [place] [address] 34077 Neutrophil cytoplasmic IgG IF (S) [Titer] <1:20 Normal <1:[address] [facility] Comment on above: Performed By: #### 1 4979-9 #### ANA M Soler ([id number]) [facility] ([facility]) [address] [place] [address] 55418 Acute hepatitis 2000 panel ( S)on 2024 HAV IgM Ql (S) Non-Reactive Nonreactive [facility] HBV core IgM Ql (S) Non-Reactive Nonreactive Un [facility] HBV surface Ag IA Ql Non-Reactive Nonreactive U [facility] HCV Ab Ql (S) Non-Reactive Nonreactive [facility] Interpretation and review of laboratory results [facility] Alpha 1 antitrypsin phenotyp jennifer 2024 Alpha 1 antitrypsin phenotyping [Interp] MM [facility] Comment on above: Result Comment: Clinical Interpretation: The patient appears to have a normal phenotype. All M alleles (including subtypes M1, M2, and M3) produce normal serum concentrations of rrjpr-1-hrtjcpnh inhibitor and are not associated with clinical disease. Caution in interpretation is advised if the patient has been transfused within the previous 21 days. Performed By: [facility] [address] [place] [address] 02518 Client Solutions Manager: Karthik Farias MD, PhD CLIA Number: [id number] Performed By: #### 1 6362-6 #### ANA M Soler ([id number]) [facility] ([facility]) [address] [place], [place] [address] Alpha 1 antitrypsin phenotyp ing [Interp]on 2024 Alpha 1 antitrypsin [Mass/Vol] 257 mg/dL High 90-[address] [facility] Comment on above: Result Comment: To c onvert to umol/L, multiply mg/dL by 0.185 Performed By: #### 1 6362-6 #### ANA M Soler ([id number]) [facility] ([facility]) [address] [place] [address] 58199 Basic metabolic 2000 panelon 2024 Anion gap [Moles/Vol] 15 mmol/L 10 - 2 0 mmol/L [facility] Calcium [Mass/Vol] 8.7 mg/dL 8.6 - 10. 6 mg/dL [facility] Chloride [Moles/Vol] 88 mmol/L Low 98 - 10 7 mmol/L [facility] CO2 [Moles/Vol] 29 mmol/L 21 - 32 mmol/L [facility] Creatinine [Mass/Vol] 0.71 mg/dL 0.50 - 1.30 mg/dL [facility] eGFR - PINF [facility] Glucose [Mass/Vol] 80 mg/dL 74 - 99 mg/dL [facility] Interpretation and review of laboratory results Abnormal [facility] Potassium [Moles/Vol] 3.1 mmol/L Low 3.5 - 5.3 mmol/L [facility] Sodium [Moles/Vol] 129 mmol/L Low 136 - 145 mmol/L [facility] Urea nitrogen [Mass/Vol] 13 mg/dL 6 - 23 mg/dL [facility] Anion gap [Moles/Vol] 15 mmol/L Normal 10-20 [facility] Comment on above: Performed By: #### 2 4323-8 #### ANA M Soler ([id number]) [facility] ([facility]) [address] [place] [address] 20948 Calcium [Mass/Vol] 8.7 mg/dL Normal 8.6-10.6 [facility] Comment on above: Performed By: #### 2 4323-8 #### ANA M AVINA L ([id number]) [facility] ([facility]) [address] [place] [address] 78969 Chloride [Moles/Vol] 88 mmol/L Low 98-107 [facility] Comment on above: Performed By: #### 2 4323-8 #### ANA M AVINA L ([id number]) [facility] ([facility]) [address] [place] [address] 17244 CO2 [Moles/Vol] 29 mmol/L Normal 21-32 [facility] Comment on above: Performed By: #### 2 4323-8 #### ANA M Soler ([id number]) [facility] ([facility]) [address] [place] [address] 40031 Creatinine [Mass/Vol] 0.71 mg/dL Normal 0.50-1.30 [facility] Comment on above: Performed By: #### 2 4323-8 #### ANA M Soler ([id number]) [facility] ([facility]) [address] [place] [address] 38880 Glomerular filtration rate >90 Normal >[address] [facility] Comment on above: Result Comment: Calc ulations of estimated GFR are performed using the 2020 CKD-EPI Study Refit equation without the race variable for the IDMS-Traceable creatinine methods. https://jasn.asnjournals.org/content/early//ASN.65769 87160 Performed By: #### 2 4323-8 #### ANA M Soler ([id number]) [facility] ([facility]) [address] [place] [address] 00416 Glucose [Mass/Vol] 80 mg/dL Normal 74-99 [facility] Comment on above: Performed By: #### 2 4323-8 #### ANA M AVINA L ([id number]) [facility] ([facility]) [address] [place] [address] 93058 Potassium [Moles/Vol] 3.1 mmol/L Low 3.5-5.3 [facility] Comment on above: Performed By: #### 2 4323-8 #### ANA M AVINA L ([id number]) [facility] ([facility]) [address] [place] [address] 89115 Sodium [Moles/Vol] 129 mmol/L Low 136-145 [facility] Comment on above: Performed By: #### 2 4323-8 #### ANA M SCHULTZMOTZER L ([id number]) [facility] ([facility]) [address] [place] [address] 51362 Urea nitrogen [Mass/Vol] 13 mg/dL Normal 6-[address] [facility] Comment on above: Performed By: #### 2 4323-8 #### ANA M AVINA L ([id number]) [facility] ([facility]) [address] [place] [address] 51481 Blood Gas Lactic Acid, Reid pickering 2024 Lactate (BldV) [Moles/Vol] 1.2 mmol/L 0.4 - 2.0 mmol/L [facility] CBC W Auto Differential pane l (Bld)on 2024 Basophils (Bld) [#/Vol] 0.02 10*3/uL [facility] Basophils/100 WBC (Bld) 0.2 % 0.0 - 2.0 % [facility] Eosinophils (Bld) [#/Vol] 0.06 10*3/uL [facility] Eosinophils/100 WBC (Bld) 0.5 % 0.0 - 6.0 % [facility] Erythrocyte distribution width (RBC) [Ratio] 16.8 % High 11.5 - 14.5 % [facility] Hematocrit (Bld) [Volume fraction] 34.2 % Low 41.0 - 52.0 % [facility] Hemoglobin (Bld) [Mass/Vol] 12.0 g/dL Low 13.5 - 17.5 g/dL [facility] Immature granulocytes (Bld) [#/Vol] 0.08 10*3/uL [facility] Immature granulocytes/100 WBC (Bld) 0.7 % 0.0 - 0.9 % [facility] Interpretation and review of laboratory results Abnormal [facility] Lymphocytes (Bld) [#/Vol] 1.20 10*3/uL [facility] Lymphocytes/100 WBC (Bld) 10.8 % 13.0 - 44.0 % [facility] MCH (RBC) [Entitic mass] 38.2 pg High 26.0 - 34.0 pg [facility] MCHC (RBC) [Mass/Vol] 35.1 g/dL 32.0 - 36.0 g/dL [facility] MCV (RBC) [Entitic vol] 109 fL High 80 - 100 fL [facility] Monocytes (Bld) [#/Vol] 0.75 10*3/uL [facility] Monocytes/100 WBC (Bld) 6.7 % 2.0 - 10.0 % [facility] Neutrophils (Bld) [#/Vol] 9.04 10*3/uL High [facility] Neutrophils/100 WBC (Bld) 81.1 % 40.0 - 80.0 % [facility] Nucleated RBC/100 WBC (Bld) [Ratio] 0.2 % High [facility] Platelets (Bld) [#/Vol] 83 10*3/uL [facility] RBC (Bld) [#/Vol] 3.14 10*6/uL [facility] WBC (Bld) [#/Vol] 11.2 10*3/uL [facility] Basophils (Bld) [#/Vol] 0.02 x10*3/uL Normal 0.00-0.[address] [facility] Comment on above: Performed By: #### 2 4323-8 #### ANA M Soler ([id number]) [facility] ([facility]) [address] [place] [address] 41915 Basophils/100 WBC (Bld) 0.2 % Normal 0.0-2.[address] [facility] Comment on above: Performed By: #### 2 4323-8 #### ANA M Soler ([id number]) [facility] ([facility]) [address] [place] [address] 96739 Eosinophils (Bld) [#/Vol] 0.06 x10*3/uL Normal 0.00-0.[address] [facility] Comment on above: Performed By: #### 2 4323-8 #### ANA M Soler ([id number]) [facility] ([facility]) [address] [place] [address] 85793 Eosinophils/100 WBC (Bld) 0.5 % Normal 0.0-6.[address] [facility] Comment on above: Performed By: #### 2 4323-8 #### ANA M Soler ([id number]) [facility] ([facility]) [address] [place] [address] 81707 Erythrocyte distribution width (RBC) [Ratio] 16.8 % High 11.5-14.[address] [facility] Comment on above: Performed By: #### 2 4323-8 #### ANA M Soler ([id number]) [facility] ([facility]) [address] [place] [address] 36554 Hematocrit (Bld) [Volume fraction] 34.2 % Low 41.0-52.[address] [facility] Comment on above: Performed By: #### 2 4323-8 #### ANA M Soler ([id number]) [facility] ([facility]) [address] [place] [address] 21382 Hemoglobin (Bld) [Mass/Vol] 12.0 g/dL Low 13.5-17.[address] [facility] Comment on above: Performed By: #### 2 4323-8 #### ANA M Soler ([id number]) [facility] ([facility]) [address] [place] [address] 08455 Immature granulocytes (Bld) [#/Vol] 0.08 x10*3/uL Normal 0.00-0.[address] [facility] Comment on above: Performed By: #### 2 4323-8 #### ANA M Soler ([id number]) [facility] ([facility]) [address] [place] [address] 80215 Immature granulocytes/100 WBC (Bld) 0.7 % Normal 0.0-0.[address] [facility] Comment on above: Result Comment: Johanna ture Granulocyte Count (IG) includes promyelocytes, myelocytes and metamyelocytes but does not include bands. Percent differential counts (%) should be interpreted in the context of the absolute cell counts (cells/UL). Performed By: #### 2 4323-8 #### ANA M Soler ([id number]) [facility] ([facility]) [address] [place] [address] 36043 Lymphocytes (Bld) [#/Vol] 1.20 x10*3/uL Normal 1.20-4.[address] [facility] Comment on above: Performed By: #### 2 4323-8 #### ANA M Soler ([id number]) [facility] ([facility]) [address] [place] [address] 74113 Lymphocytes/100 WBC (Bld) 10.8 % Normal 13.0-44.[address] [facility] Comment on above: Performed By: #### 2 4323-8 #### ANA M Soler ([id number]) [facility] ([facility]) [address] [place] [address] 41452 MCH (RBC) [Entitic mass] 38.2 pg High 26.0-34.[address] [facility] Comment on above: Performed By: #### 2 4323-8 #### ANA M Soler ([id number]) [facility] ([facility]) [address] [place] [address] 84231 MCHC (RBC) [Mass/Vol] 35.1 g/dL Normal 32.0-36.0 [facility] Comment on above: Performed By: #### 2 4323-8 #### ANA M Soler ([id number]) [facility] ([facility]) [address] [place] [address] 94048 MCV (RBC) [Entitic vol] 109 fL High 80-[address] [facility] Comment on above: Performed By: #### 2 4323-8 #### ANA M Soler ([id number]) [facility] ([facility]) [address] [place] [address] 85752 Monocytes (Bld) [#/Vol] 0.75 x10*3/uL Normal 0.10-1.[address] [facility] Comment on above: Performed By: #### 2 4323-8 #### ANA M Soler ([id number]) [facility] ([facility]) [address] [place] [address] 55099 Monocytes/100 WBC (Bld) 6.7 % Normal 2.0-10.[address] [facility] Comment on above: Performed By: #### 2 4323-8 #### ANA M Soler ([id number]) [facility] ([facility]) [address] [place] [address] 38727 Neutrophils (Bld) [#/Vol] 9.04 x10*3/uL High 1.20-7.[address] [facility] Comment on above: Result Comment: Perc ent differential counts (%) should be interpreted in the context of the absolute cell counts (cells/uL). Performed By: #### 2 4323-8 #### ANA M Soler ([id number]) [facility] ([facility]) [address] [place] [address] Neutrophils/100 WBC (Bld) 81.1 % Normal 40.0-80.[address] [facility] Comment on above: Performed By: #### 2 4323-8 #### ANA M Soler ([id number]) [facility] ([facility]) [address] [place] [address] 20440 Nucleated RBC/100 WBC (Bld) [Ratio] 0.2 /100 WBCs High 0.0-0.[address] [facility] Comment on above: Performed By: #### 2 4323-8 #### ANA M Soler ([id number]) [facility] ([facility]) [address] [place] [address] Platelets (Bld) [#/Vol] 83 x10*3/uL Low 150-[address] [facility] Comment on above: Performed By: #### 2 4323-8 #### ANA M Soler ([id number]) [facility] ([facility]) [address] [place] [address] 11780 RBC (Bld) [#/Vol] 3.14 x10*6/uL Low 4.50-5.90 [facility] Comment on above: Performed By: #### 2 4323-8 #### ANA M Soler ([id number]) [facility] ([facility]) [address] [place] [address] 40463 WBC (Bld) [#/Vol] 11.2 x10*3/uL Normal 4.4-11.3 [facility] Comment on above: Performed By: #### 2 4323-8 #### ANA M Soler ([id number]) [facility] ([facility]) [address] [place] [address] CT HEAD WO IV CONTRASTon CT HEAD WO IV CONTRAST Interpreted By: Ignacio Spencer, STUDY: CT HEAD WO IV CONTRAST; 12/06/2024 8:10 am INDICATION: Signs/Symptoms:altered mental status. COMPARISON: None. ACCESSION NUMBER(S): [id number] ORDERING CLINICIAN: BRIANNA SINGH TECHNIQUE: Axial noncontrast [...] Ignacio Torres 12/06/2024 5:35 PM Dictation workstation: [id number] Normal [facility] Cell count panel (Body fld)o n 2024 Clarity (Body fld) Clear Clear [facility] Color (Body fld) Yellow Colorless, Straw, Yellow [facility] RBC Auto (Body fld) [#/Vol] 2000 /uL see comment [facility] WBC (Body fld) [#/Vol] 0.133 10*3/uL See Elvin mcduffie [facility] Ceruloplasminon 2024 Ceruloplasmin [Mass/Vol] 23.4 mg/dL 20.0 - 60.0 mg/dL [facility] Work Phone: Ceruloplasmin [Mass/Vol] 23.4 mg/dL Normal 20.0-60.[address] [facility] Comment on above: Performed By: #### 3 040-3 #### ANA M Soler ([id number]) [facility] ([facility]) [address] [place] [address] Differential panel (Body fld )on 2024 Cells Counted Total (Body fld) [#] 100 [facility] Eosinophils/100 WBC Manual cnt (Body fld) 5 % see comment [facility] Lymphocytes/100 WBC Manual cnt (Body fld) 6 % see comment [facility] Monocytes+Macrophages/ 100 WBC Manual cnt (Body fld) 46 % see comment [facility] Neutrophils/100 WBC (Body fld) 43 % see comment [facility] Drugs of abuse screen W Refl ex confirm panel (U)on 2024 Amphetamines Screen Ql (U) Negative Presumptive Negative [facility] Barbiturates Screen Ql (U) Negative Presumptive Negative [facility] Benzodiazepines Ql (U) Negative Presu mptive Negative [facility] Benzoylecgonine Screen Ql (U) Negative Presumptive Negative [facility] Cannabinoids Screen Ql (U) Negative Presumptive Negative [facility] fentaNYL+Norfentanyl Screen Ql (U) Negative Presumptive Negative [facility] Interpretation and review of laboratory results Normal [facility] Methadone Screen Ql (U) Negative Presumptive Negative [facility] Opiates Screen Ql (U) Negative Presum ptive Negative [facility] oxyCODONE+oxyMORphone Screen Ql (U) Negative Presumptive Negative [facility] Phencyclidine Ql (U) Negative Presump tive Negative [facility] ECG 12 leadOrdered By: Adam Armstrong on 2024 Atrial Rate 124 BPM [facility] Work Phone: [phone] P [place] 35 degrees [facility] Work Phone: [phone] P Offset 194 [facility] Work Phone: [phone] P Onset 140 [facility] Work Phone: [phone] ME Interval 156 ms [facility] Work Phone: [phone] Q Onset 218 [facility] Work Phone: [phone] QRS Count 21 beats [facility] Work Phone: [phone] QRS Duration 74 ms [facility] Work Phone: [phone] QT Interval 334 ms [facility] Work Phone: [phone] QTC Calculation(Bazett) 479 ms [facility] Work Phone: QTC Fredericia 425 ms [facility] Work Phone: R [place] -11 degrees [facility] Work Phone: T [place] 49 degrees [facility] Work Phone: [phone] T Offset 385 ms [facility] Work Phone: [phone] Ventricular Rate 124 BPM [facility] Work Phone: [phone] [facility] Work Phone: [phone] ECG 12 leadon 2024 MUSE [facility] Work Phone: Ethanolon 2024 Ethanol [Mass/Vol] mg/dL NINF - 10 mg/dL [facility] Work Phone: Ethanol [Mass/Vol]on 025 Interpretation and review of laboratory results Normal [facility] Work Phone: [facility] Work Phone: Ferritinon 2024 Ferritin [Mass/Vol] 2253 ng/mL High 20 - 300 ng/mL [facility] Gas panel (BldV)on 5 Anion gap 4 (BldV) [Moles/Vol] 10.0 mmol/L 10.0 - 25.0 mmol/L [facility] Base excess Calc (BldV) [Moles/Vol] 3.0 mmol/L -2.0 - 3.0 mmol/L [facility] Calcium.ionized (BldV) [Moles/Vol] 1.08 mmol/L Low 1.10 - 1.33 mmol/L [facility] Chloride (BldV) [Moles/Vol] 90 mmol/L Low 98 - 107 mmol/L [facility] CO2 (BldV) [Partial pressure] 34 mm[Hg] Low [facility] Glucose [Mass/Vol] 82 mg/dL 74 - 99 mg/dL [facility] HCO3 (Bld) [Moles/Vol] 25.9 mmol/L 22.0 - 26.0 mmol/L [facility] Hematocrit Est (Bld) [Volume fraction] 47.0 % 41.0 - 52.0 % [facility] Hemoglobin (Bld) [Mass/Vol] 15.5 g/dL 13.5 - 17.5 g/dL [facility] Inhaled oxygen concentration 21 % [facility] Interpretation and review of laboratory results Abnormal [facility] Lactate (BldV) [Moles/Vol] 2.4 mmol/L High 0.4 - 2.0 mmol/L [facility] Oxygen (BldV) [Partial pressure] 63 mm[Hg] High [facility] Oxygen saturation in Venous blood 92 % High 45 - 75 % [facility] Oxyhemoglobin (BldV) [Mass fraction] 89.3 % High 45.0 - 75.0 % [facility] pH (BldV) 7.49 [pH] High 7.33 - 7.43 pH [facility] Potassium (BldV) [Moles/Vol] 3.3 mmol/L Low 3.5 - 5.3 mmol/L [facility] Sodium (BldV) [Moles/Vol] 123 mmol/L Low 136 - 145 mmol/L [facility] Anion gap 4 (BldV) [Moles/Vol] 10.0 mmol/L Normal 10.0-25.[address] [facility] Comment on above: Performed By: #### 3 040-3 #### ANA M Soler ([id number]) [facility] ([facility]) [address] [place] [address] Base excess Calc (BldV) [Moles/Vol] 3.0 mmol/L Normal -2.0-3.[address] [facility] Comment on above: Performed By: #### 3 040-3 #### ANA M Soler ([id number]) [facility] ([facility]) [address] [place], [place] [address] Calcium.ionized (BldV) [Moles/Vol] 1.08 mmol/L Low 1.10-1.[address] [facility] Comment on above: Performed By: #### 3 040-3 #### ANA M Soler ([id number]) [facility] ([facility]) [address] [place] [address] 28189 Chloride (BldV) [Moles/Vol] 90 mmol/L Low 98-[address] [facility] Comment on above: Performed By: #### 3 040-3 #### ANA M Soler ([id number]) [facility] ([facility]) [address] [place] [address] 11423 CO2 (BldV) [Partial pressure] 34 mm Hg Low 41-[address] [facility] Comment on above: Performed By: #### 3 040-3 #### ANA M Soler ([id number]) [facility] ([facility]) [address] [place] [address] 41604 Glucose [Mass/Vol] 82 mg/dL Normal 74-99 [facility] Comment on above: Performed By: #### 3 040-3 #### ANA M Soler ([id number]) [facility] ([facility]) [address] [place] [address] 33712 HCO3 (Bld) [Moles/Vol] 25.9 mmol/L Normal 22.0-26.0 [facility] Comment on above: Performed By: #### 3 040-3 #### ANA M Soler ([id number]) [facility]) [address] [place] [address] 89843 Hematocrit Est (Bld) [Volume fraction] 47.0 % Normal 41.0-52.[address] [facility] Comment on above: Performed By: #### 3 040-3 #### ANA M Soler ([id number]) [facility] ([facility]) [address] [place] [address] 08765 Hemoglobin (Bld) [Mass/Vol] 15.5 g/dL Normal 13.5-17.[address] [facility] Comment on above: Performed By: #### 3 040-3 #### ANA M Soler ([id number]) [facility] ([facility]) [address] [place] [address] 31060 Inhaled oxygen concentration 21 % Normal [facility] Comment on above: Performed By: #### 3 040-3 #### ANA M Soler ([id number]) [facility] ([facility]) [address] [place] [address] 20482 Lactate (BldV) [Moles/Vol] 2.4 mmol/L High 0.4-2.[address] [facility] Comment on above: Performed By: #### 3 040-3 #### ANA M Soler ([id number]) [facility] ([facility]) [address] [place] [address] 67585 Oxygen (BldV) [Partial pressure] 63 mm Hg High 35-[address] [facility] Comment on above: Performed By: #### 3 040-3 #### ANA M Soler ([id number]) [facility] ([facility]) [address] [place] [address] 18072 Oxygen saturation in Venous blood 92 % High 45-[address] [facility] Comment on above: Performed By: #### 3 040-3 #### ANA M Soler ([id number]) [facility] ([facility]) [address] [place] [address] 75754 Oxyhemoglobin (BldV) [Mass fraction] 89.3 % High 45.0-75.[address] [facility] Comment on above: Performed By: #### 3 040-3 #### ANA M Soler ([id number]) [facility] ([facility]) [address] [place] [address] 94764 pH (BldV) 7.49 [pH] High 7.33-7.[address] [facility] Comment on above: Performed By: #### 3 040-3 #### ANA M Soler ([id number]) [facility] ([facility]) [address] [place] [address] 20718 Potassium (BldV) [Moles/Vol] 3.3 mmol/L Low 3.5-5.[address] [facility] Comment on above: Performed By: #### 3 040-3 #### ANA M Soler ([id number]) [facility] ([facility]) [address] [place] [address] Sodium (BldV) [Moles/Vol] 123 mmol/L Low 136-[address] [facility] Comment on above: Performed By: #### 3 040-3 #### ANA M Soler ([id number]) [facility] ([facility]) [address] [place] [address] 39174 Hepatic function 2000 panelo n 2024 Albumin BCP dye [Mass/Vol] 3.5 g/dL 3.4 - 5.0 g/dL [facility] Work Phone: ALP [Catalytic activity/Vol] 173 U/L High 33 - 120 U/L [facility] Work Phone: [phone] ALT With P-5'-P [Catalytic activity/Vol] 53 U/L High 10 - 52 U/L [facility] Work Phone: [phone] AST With P-5'-P [Catalytic activity/Vol] 133 U/L High 9 - 39 U/L [facility] Work Phone: [phone] Bilirubin [Mass/Vol] 17.6 mg/dL High 0.0 - 1 .2 mg/dL [facility] Work Phone: [phone] Bilirubin.direct [Mass/Vol] 10.0 mg/dL High 0.0 - 0.3 mg/dL [facility] Work Phone: [phone] Interpretation and review of laboratory results Abnormal [facility] Work Phone: [phone] Protein [Mass/Vol] 5.9 g/dL Low 6.4 - 8.2 g/dL [facility] Work Phone: Albumin BCP dye [Mass/Vol] 3.5 g/dL Normal 3.4-5.[address] [facility] Comment on above: Performed By: #### 2 4323-8 #### ANA M Soler ([id number]) [facility] ([facility]) [address] [place] [address] ALP [Catalytic activity/Vol] 173 U/L High 33-[address] [facility] Comment on above: Performed By: #### 2 4323-8 #### ANA M Soler ([id number]) [facility] ([facility]) [address] [place] [address] ALT With P-5'-P [Catalytic activity/Vol] 53 U/L High 10-[address] [facility] Comment on above: Result Comment: Kala ents treated with Sulfasalazine may generate falsely decreased results for ALT. Performed By: #### 2 4323-8 #### ANA M Soler ([id number]) [facility] ([facility]) [address] [place] [address] AST With P-5'-P [Catalytic activity/Vol] 133 U/L High 9-[address] [facility] Comment on above: Performed By: #### 2 4323-8 #### ANA M Soler ([id number]) [facility] ([facility]) [address] [place] [address] 49500 Bilirubin [Mass/Vol] 17.6 mg/dL High 0.0-1.2 [facility] Comment on above: Performed By: #### 2 4323-8 #### ANA M Soler ([id number]) [facility] ([facility]) [address] [place] [address] 57057 Bilirubin.direct [Mass/Vol] 10.0 mg/dL High 0.0-0.[address] [facility] Comment on above: Performed By: #### 2 4323-8 #### ANA M Soler ([id number]) [facility] ([facility]) [address] [place] [address] 98281 Protein [Mass/Vol] 5.9 g/dL Low 6.4-8.2 [facility] Comment on above: Performed By: #### 2 4323-8 #### ANA M Soler ([id number]) [facility] ([facility]) [address] [place] [address] 38378 Hepatitis A AB, Totalon 08-2 2-2025 HEPATITIS A,TOT Positive Abnormal Negative [facility] Comment on above: Result Comment: [...] total antibody results to IgM (e.g., panel #[id number] HAV Antibody w/ Rfx). Performed at: [address] [id number] [employer] Loan Collection Officer: Stanley Ozuna PhD, Phone: [phone] Performed By: #### L 500.4050, L501.2450, L100.0100 #### [facility] [address] [place], [place], [id number] Hepatitis B Core Ab Totalon 2024 HEP B CORE,TOT Negative Normal Negative [facility] Comment on above: Performed By: #### L 500.4050, L501.2450, L100.0100 #### [facility] [address] [place], [place], [id number] IgGOrdered By: Nicola Saab on 2024 IgG [Mass/Vol] 870 mg/dL 700 - 1600 mg/dL [facility] IgGon 2024 IgG [Mass/Vol] 870 mg/dL Normal 700-[address] [facility] Comment on above: Result Comment: MONO CLONAL PROTEINS MAY CAUSE FALSELY LOW RESULTS IN THIS ASSAY. SERUM PROTEIN ELECTROPHORESIS SHOULD BE DONE THE FIRST TEST TO EVALUATE MONOCLONAL GAMMOPATHY. Performed By: #### 3 040-3 #### ANA M Soler ([id number]) [facility] ([facility]) [address] [place] [address] 95487 Iron and Iron binding capaci ty panelon 2024 Iron [Mass/Vol] 70 ug/dL 35 - 150 ug/dL [facility] Iron binding capacity [Mass/Vol] 160 ug/dL Low 240 - 445 ug/dL [facility] Iron binding capacity.unsaturated [Mass/Vol] 90 ug/dL Low 110 - 370 ug/dL [facility] Iron saturation [Mass fraction] 44 % 25 - 45 % [facility] L501.5101on 2024 GGTP 1155 IU/L Abnormal 0-65 [facility] Comment on above: Performed By: #### L 500.4050, L501.2450, L100.0100 #### [facility] [address] [place], [address] Lactateon 2024 Lactate (BldV) [Moles/Vol] 1.2 mmol/L Normal 0.4-2.[address] [facility] Comment on above: Performed By: #### 3 040-3 #### ANA M Soler ([id number]) [facility] ([facility]) [address] [place] [address] 22702 Lactate [Moles/Vol] 1.6 mmol/L 0.4 - 2. 0 mmol/L [facility] Lactate [Moles/Vol] 1.6 mmol/L Normal 0.4-2.0 [facility] Comment on above: Order Comment: Venip [...] #### 3 040-3 #### ANA M Soler ([id number]) [facility] ([facility]) [address] [place] [address] 78547 Lactate (BldV) [Moles/Vol]on 2024 Interpretation and review of laboratory results Normal [facility] Lactate [Moles/Vol]on 2024 Interpretation and review of laboratory results Normal [facility] Liver kidney microsomal Abon 2024 Liver kidney microsomal Ab IF (S) [Titer] <1:20 Normal <1:[address] [facility] Comment on above: Result Comment: INTE RPRETIVE INFORMATION: Toidv-Qgowfv-Fzmyphbgq Abs, IgG Liver-Kidney Microsome IgG antibody (anti-LKM), as detected by indirect immunofluorescent antibody (IFA) techniques, may be observed in patients with autoimmune hepatitis type 2 (AIH-2), AIH-2 associated with autoimmune oiktvlkaaqbphuhsen-cuywxztbyuc-pxokbbeutx dystrophy (APECED), viral hepatitis C or D, and some forms of drug-induced hepatitis. This IFA does not differentiate among the four types of LKM antibodies (LKM-1, LKM-2, LKM-3, and a fourth type that recognizes CY and CY antigens). Of these, anti-LKM-1 (cytochrome [id number]) IgG antibodies are considered specific for AIH-2. This test was developed and its performance characteristics determined by [facility]. It has not been cleared or approved by the [place] Food and Drug Administration. This test was performed in a CLIA certified laboratory and is intended for clinical purposes. Performed By: [facility] [address] [place] [address]996 Client Solutions Manager: Karthik Farias MD, PhD CLIA Number: [id number] Performed By: #### 1 4979-9 #### ANA M Soler ([id number]) [facility] ([facility]) [address] [place] [address] MagnesiumOrdered By: Erna lopez on 2024 Magnesium [Mass/Vol] 1.85 mg/dL 1.60 - 2.40 mg/dL [facility] Magnesiumon 2024 Magnesium [Mass/Vol] 1.85 mg/dL Normal 1.60-2.40 [facility] Comment on above: Performed By: #### 2 4323-8 #### ANA M Soler ([id number]) [facility] ([facility]) [address] [place] [address] Magnetic resonance imaging r eportOrdered By: Brianna Aceves on 2024 Study report [facility] Imaging Services [address] [place] [address] MRI Abd WITH and W/O Contrast MR#: [id number] Acct: [id number] Name: JOSE PARKER Rep #: [id number] : 1980 M 43 From: Miriam Aceves MD PCP: Carmita Patrick, MACHINE TOOL DESIGNER-C Status: REG CLI Study:MRI Abd WITH and W/O Contrast Date of E xam: 12/04/24 Exam# [id number] Ordering Dr: Maria Ines Ceja MACHINE TOOL DESIGNER-C PROCEDURE: MRI ABD WITH AND W/O CONTRAST [...] probably secondary to portal hypertension/ascites. Reading [facility] CC: RAJESH Ceja; RAJESH Patrick ~ Weather Forecaster: Signed [facility] Mitochondria Abon 2024 Mitochondria Ab IF Ql (S) Negative Normal Negative [facility] Comment on above: Performed By: #### 5 902-2 #### ANA M Soler ([id number]) [facility] ([facility]) [address] [place] [address] No Panel InformationOrdered By: Nicola Saab on 2024 Interpretation and review of laboratory results Normal [facility] No Panel Informationon 12-05 Interpretation and review of laboratory results Normal [facility] Work Phone: [facility] Work Phone: Interpretation and review of laboratory results Abnormal [facility] Nuclear Abon 2024 Nuclear Ab Hep2 substrate Ql (S) Negative Normal Negative [facility] Comment on above: Result Comment: The Antinuclear Antibody (CHERYL) test was performed using indirect immunofluorescence assay with HEp-2 cells slide. Performed By: #### 5 902-2 #### ANA M Soler ([id number]) [facility] ([facility]) [address] [place] [address] OsmolalityOrdered By: Ann Polk on 2024 Osmolality [Osmolality] 273 mosm/kg Low [facility] Osmolality (U) [Osmolality]o n 2024 Interpretation and review of laboratory results [facility] Work Phone: [facility] Work Phone: Osmolality [Osmolality]Order ed By: Camelia Polk on 2024 Interpretation and review of laboratory results Abnormal [facility] Osmolality, urineon 12-06-19 25 Osmolality (U) [Osmolality] 705 mosm/kg [facility] Work Phone: PHOSPHATIDYLETHANOL (PETH), WHOLE BLOOD, QUANTITATIVEon 2024 Laboratory comment Christopher (Report) See Comment Normal [facility] Comment on above: Result Comment: Phos phatidylethanol [...] developed and its performance characteristics determined by [facility]. It has not been cleared or approved by the U.S. Food and Drug Administration. This test was performed in a CLIA-certified laboratory and is intended for clinical purposes. Performed By: [facility] [address] [place] [address] 98036 Client Solutions Manager: Karthik Farias MD, PhD CLIA Number: [id number] Performed By: #### 1 4979-9 #### ANA M Soler ([id number]) [facility] ([facility]) [address] [place] [address] Laboratory report See Note Normal [facility] Comment on above: Result Comment: Auth orized individuals can access the dELiAs Enhanced Report with an [employer] account using the following link. Your local lab can assist you in obtaining the patient report if you don't have a Connect account. [email or web address] Performed By: #### 1 4979-9 #### ANA M Soler ([id number]) [facility] ([facility]) [address] [place] [address] 68421 Phosphatidylethanol 16:0-18:1 1576 ng/mL Normal [facility] Comment on above: Result Comment: PEth 16:0/18:1 (POPEth) Less than 10 ng/mL............Not detected Less than 20 ng/mL............Abstinence or light alcohol consumption 20 - 200 ng/mL................Moderate alcohol consumption Greater than 200 ng/mL........Heavy alcohol consumption or chronic alcohol use (Reference: Ricky Saleh and Davonte Harrison 2018 J. Forensic Sci) Performed By: #### 1 4979-9 #### ANA M Soler ([id number]) [facility] ([facility]) [address] [place] [address] 31555 Phosphatidylethanol 16:0-18:2 1798 ng/mL [facility] Comment on above: Result Comment: Refe rence ranges are not well established. Performed By: #### 1 4979-9 #### ANA M Soler ([id number]) [facility] ([facility]) [address] [place] [address] 95694 PT and aPTT panel Coag (PPP) on 2024 aPTT Coag (PPP) [Time] 28 s Un [facility] INR Coag (PPP) [Relative time] 1.7 {INR} High 0.9 - 1.1 [facility] Interpretation and review of laboratory results Abnormal [facility] PT Coag (PPP) [Time] 18.8 s High [facility] aPTT Coag (PPP) [Time] 28 s Normal 26-36 [facility] Comment on above: Order Comment: The A PTT is no longer used for monitoring Unfractionated Heparin Therapy. For monitoring Heparin Therapy, use the Heparin Assay. Performed By: #### 2 4323-8 #### ANA M Soler ([id number]) [facility] ([facility]) [address] [place] [address] 41751 INR Coag (PPP) [Relative time] 1.7 High 0.9-1.[address] [facility] Comment on above: Order Comment: The A PTT is no longer used for monitoring Unfractionated Heparin Therapy. For monitoring Heparin Therapy, use the Heparin Assay. Performed By: #### 2 4323-8 #### ANA M Soler ([id number]) [facility] ([facility]) [address] [place] [address] PT Coag (PPP) [Time] 18.8 s High 9.8-12.4 [facility] Comment on above: Order Comment: The A PTT is no longer used for monitoring Unfractionated Heparin Therapy. For monitoring Heparin Therapy, use the Heparin Assay. Performed By: #### 2 4323-8 #### ANA M Soler ([id number]) [facility] ([facility]) [address] [place] [address] 86805 Phosphateon 2024 Phosphate [Mass/Vol] 2.6 mg/dL Normal 2.5-4.9 [facility] Comment on above: Performed By: #### 3 040-3 #### ANA M Soler ([id number]) [facility] ([facility]) [address] [place] [address] 88205 Phosphoruson 2024 Phosphate [Mass/Vol] 2.6 mg/dL 2.5 - 4 .9 mg/dL [facility] Work Phone: Protein (Body fld) [Mass/Vol ]on 2024 [facility] Protein, Total, Body Fluidon 2024 Protein (Body fld) [Mass/Vol] 2.0 g/dL Not established [facility] Smooth muscle Abon Smooth muscle Ab IF Ql (S) Positive Abnormal Negative [facility] Comment on above: Performed By: #### D RUBL #### ANA M Soler ([id number]) [facility] ([facility]) [address] [place], [place] [id number] TSHon 2024 TSH Qn 3.10 m[IU]/L [facility] TSH Qnon 2024 Interpretation and review of laboratory results Normal [facility] Thyrotropinon 2024 TSH Qn 3.10 m[IU]/L Normal 0.44-3.[address] [facility] Comment on above: Order Comment: Venip uncture immediately after or during the administration of Metamizole may lead to falsely low results. Testing should be performed immediately prior to Metamizole dosing. Performed By: #### 3 040-3 #### ANA M Soler ([id number]) [facility] ([facility]) [address] [place], [place] [id number] US ABDOMEN LIMITEDon 025 US ABDOMEN LIMITED Interpreted By: Mina Martel and Stevens Alex STUDY: US ABDOMEN LIMITED; 2024 9:15 am INDICATION: Signs/Symptoms:new liver disease. COMPARISON: None. ACCESSION NUMBER(S): [id number] ORDERING CLINICIAN: VERO MACHADO TECHNIQUE: Multiple images [...] DO PGY-3. This study was interpreted at [place], [place]. MACRO: None Signed by: Mina España 2024 4:20 PM Dictation workstation: [id number] Normal [facility] Comment on above: Order Comment: Venip uncture immediately after or during the administration of Metamizole may lead to falsely low results. Testing should be performed immediately prior to Metamizole dosing. US Abdomen RUQon 2024 [facility] MMODAL [facility] MMODAL [facility] Work Phone: US Abdomen RUQOrdered By: Markel Mcgraw on 2024 [facility] Work Phone: US Abdomen limitedon 025 [facility] MMODAL [facility] MMODAL [facility] Work Phone: Radiology Study observation (narrative) [facility] Work Phone: US Abdomen limitedOrdered By : Mina España on 2024 [facility] Work Phone: Urinalysis complete W Reflex Culture panel (U)on 2024 Appearance (U) Turbid Abnormal Clear [facility] Bilirubin (U) [Mass/Vol] OVER (4+) Abnormal NEGATIVE mg/dL [facility] Color (U) Dark-Yellow Light-Yellow , Yellow, Dark-Yellow [facility] Glucose Auto test strip (U) [Mass/Vol] Normal Normal mg/dL [facility] Interpretation and review of laboratory results Abnormal [facility] Ketones (U) [Mass/Vol] 40 (2+) Abnormal NEGAT SÁNCHEZ mg/dL [facility] Leukocyte esterase Auto test strip Ql (U) Negative NEGATIVE [facility] Mucus Auto (Urine sed) [#/Area] 1+ Reference range not established. /LPF [facility] Nitrite Auto test strip Ql (U) Negative NEGATIVE [facility] pH (U) 6.0 [pH] 5.0, 5.5, 6.0, 6.5, 7.0, 7.5, 8.0 [facility] Protein (U) [Mass/Vol] 20 (TRACE) NEGAT SÁNCHEZ, 10 (TRACE), 20 (TRACE) mg/dL [facility] RBC (U) [#/Vol] Negative NEGATIVE mg/dL [facility] RBC Auto (Urine sed) [#/Area] NONE NONE, 1-2, 3-5 /HPF [facility] Specific gravity (U) [Rel density] 1.029 1.005 - 1.035 [facility] Urobilinogen (U) [Mass/Vol] 4 (2+) Abnormal Normal mg/dL [facility] WBC Auto (Urine sed) [#/Area] 1-5 1-5, NONE /HPF [facility] Urine electrolyteson 025 Chloride (U) [Moles/Vol] mmol/L mmol/L [facility] Chloride/Creatinine Ratio [facility] Creatinine (U) [Mass/Vol] 179.6 mg/dL 20.0 - 370.0 mg/dL [facility] Potassium (U) [Moles/Vol] 38 mmol/L [facility] Potassium/Creatinine (U) [Ratio] 21 Not established mmol/g Creat [facility] Sodium (U) [Moles/Vol] mmol/L mmol/L [facility] (U) [Ratio] [facility] US ABDOMINAL/PELVIC DUP DELANO COMPLETEon 2024 [facility] US ABDOMINAL/PELVIC DUPLEX COMPLETE Interpreted By: Houston Avalos and Sheng Max STUDY: [facility] US ABDOMINAL/PELVIC DUPLEX COMPLETE; 12/07/2024 12:52 pm INDICATION: Signs/Symptoms:Liver doppler. ,R10.84 Generalized abdominal pain COMPARISON: US ABDOMEN LIMITED 2024, MR INTERPRETATION OF OUTSIDE FILMS 12/04/2024, CT INTERPRETATION OF OUTSIDE FILMS 12/02/2024 ACCESSION NUMBER(S): [id number] ORDERING CLINICIAN: BRIANNA SINGH TECHNIQUE: Multiple color and spectral Doppler images of the liver and spleen were obtained. This examination was interpreted at [facility], [facility]. FINDINGS: DOPPLER EVALUATION: HEPATIC ARTERIES: The following [...] Jama Dominguez. This study was interpreted at [place], [place]. MACRO: None Signed by: Houston Avalos 12/07/2024 7:03 PM Dictation workstation: [id number] Normal [facility] ACUTE TOXICOLOGY PANEL, KISHANBailey Yao 12-04-2024 Acetaminophen [Mass/Vol] ug/mL Normal 10.0-30.[address] [facility] Comment on above: Performed By: #### D RUBL #### ANA M Soler ([id number]) [facility] ([facility]) [address] [place] [address] Ethanol [Mass/Vol] mg/dL Normal <=10 [facility] Comment on above: Performed By: #### D RUBL #### ANA M Soler ([id number]) [facility] ([facility]) [address] [place] [address] Performed By: #### 1 6362-6 #### ANA M Soler ([id number]) [facility] ([facility]) [address] [place] [address] Salicylates [Mass/Vol] mg/dL Normal 4-20 [facility] Comment on above: Performed By: ###Jonathan SPARROW #### ANA M Soler ([id number]) [facility] ([facility]) [address] [place] [address] Absolute lymphocyte countOrd ered By: Maria Ines Marcial on 12-04-2024 Lymphocytes Auto (Unsp spec) [#/Vol] 1.11 10*3/uL 0.83-4.51 [facility] Absolute neutrophil countOrd ered By: Maria Ines Ceja on 12-04-2024 Neutrophils (Bld) [#/Vol] 13.4 10*3/uL High 2.0-7.7 [facility] Acute Toxicology Panel, Bloo don 12-04-2024 Acetaminophen [Mass/Vol] ug/mL 10.0 - 30.0 ug/mL [facility] Ethanol [Mass/Vol] mg/dL NINF - 10 mg/dL [facility] Salicylates [Mass/Vol] mg/dL 4 - 20 mg/dL [facility] Acute hepatitis 2000 panel ( S)on 12-04-2024 HAV IgM Ql (S) Non-Reactive Normal Nonreactive [facility] Comment on above: Result Comment: Biot in interference may cause falsely decreased results. Patients taking a Biotin dose of up to 5 mg/day should refrain from taking Biotin for 24 hours before sample collection. Providers may contact their local laboratory for further information. Performed By: #### 3 040-3 #### ANA M Soler ([id number]) [facility] ([facility]) [address] [place] [address] HBV core IgM Ql (S) Non-Reactive Normal Nonreactive [facility] Comment on above: Result Comment: Resu lts from patients taking biotin supplements or receiving high-dose biotin therapy should be interpreted with caution due to possible interference with this test. Providers may contact their local laboratory for further information. Performed By: #### 3 040-3 #### ANA M Soler ([id number]) [facility] ([facility]) [address] [place] [id number] HBV surface Ag IA Ql Non-Reactive Normal Nonreactive U [facility] Comment on above: Result Comment: Biot in interference may cause falsely decreased results. Patients taking a Biotin dose of up to 5 mg/day should refrain from taking Biotin for 24 hours before sample collection. Providers may contact their local laboratory for further information. Performed By: #### 3 040-3 #### ANA M Soler ([id number]) [facility] ([facility]) [address] [place], [place] [address] HCV Ab Ql (S) Non-Reactive Normal Nonreactive [facility] Comment on above: Result Comment: Resu lts from patients taking biotin supplements or receiving high-dose biotin therapy should be interpreted with caution due to possible interference with this test. Providers may contact their local laboratory for further information. Performed By: #### 3 040-3 #### ANA M Soler ([id number]) [facility] ([facility]) [address] [place], [place] [address] [id number] 2024 AFP [Mass/Vol] 6 ng/mL Normal 0-[address] [facility] Comment on above: Order Comment: AFP t esting is performed by chemiluminescent immunoassay using the Siemens VectorLearning. Values obtained with different analyte methods cannot be used interchangeably. This test can be used as an adjunct in the diagnosis and monitoring of AFP-producing tumors, including non-seminomatous germ cell tumors and hepatocellular carcinomas. Performed By: #### 2 4323-8 #### ANA M Soler ([id number]) [facility] ([facility]) [address] [place] [address] 27276 Ammoniaon 12-04-2024 Ammonia (P) [Moles/Vol] 64 umol/L High 16 - 53 umol/L [facility] Ammonia (P) [Moles/Vol] 64 umol/L High 16-[address] [facility] Comment on above: Result Comment: MODE RATE HEMOLYSIS DETECTED. The result may be falsely elevated due to hemolysis or other interferents. Clinical correlation is recommended. Repeat testing may be considered. Performed By: #### 1 6362-6 ###Jonathan Soler ([id number]) [facility] ([facility]) [address] [place] [address] 28055 Anion gap in Serum or Plasma Ordered By: Maria Ines Ceja on 12-04-2024 Anion gap [Moles/Vol] 21 mmol/L High 5-15 [facility] Automated lymphocyte count a s percentage of total leukocytesOrdered By: Maria Ines Ceja on 12-04-2024 Lymphocytes/100 WBC Auto (Unsp spec) 7.1 % Low 19-41 [facility] BUN/creatinine ratioOrdered By: Maria Ines Ceja on 12-04-2024 Urea nitrogen/Creatinine [Mass ratio] 16.7 mg/mg 10- [facility] Bacteriaon 12-04-2024 Bacteria identified Cx Nom (Bld) Test: Blood Culture Specimen Source: Peripheral Venipuncture Specimen Type: Blood culture Specimen Date: 12/04/20242220 Result Date: 12/09/2024 0000 Result Status: Final result Abnormal: No Resulting Lab: [facility] [address] [place] [address] CULTURE No growth at 4 days - FINAL REPORT [facility] Comment on above: Performed By: #### 1 6362-6 #### ANA M Soler ([id number]) [facility] ([facility]) [address] [place] [address]19 Basic Metabolic Profile (BMP )on 12-04-2024 BUN/CRE 16.7 RATIO Normal - [facility] Comment on above: Performed By: #### L 500.4050, L501.2450, L100.0100 #### [facility] [address] [place], [address] Calcium [Mass/Vol] 8.7 mg/dL Normal 7.6-11.0 [facility] Comment on above: Performed By: #### L 500.4050, L501.2450, L100.0100 #### [facility] [address] [place], [address] Chloride [Moles/Vol] 88 mmol/L Low 98-108 [facility] Comment on above: Performed By: #### L 500.4050, L501.2450, L100.0100 #### [facility] [address] [place], [address] CO2 [Moles/Vol] 20.1 mmol/L Low 21.0-32.0 [facility] Comment on above: Performed By: #### L 500.4050, L501.2450, L100.0100 #### [facility] [address] [place], [address] Creatinine [Mass/Vol] 0.61 mg/dL Low 0.70-1.20 [facility] Comment on above: Result Comment: Icte lilia present, Results may be affected. Performed By: #### L 500.4050, L501.2450, L100.0100 #### [facility] [address] [place], [address] GAP 21 High 5-15 [facility] Comment on above: Performed By: #### L 500.4050, L501.2450, L100.0100 #### [facility] [address] [place], [address] GFR/1.73 sq M.predicted among non-blacks MDRD (S/P/Bld) [Vol rate/Area] 123 mL/min/{1.73_m2} Normal >60 [facility] Comment on above: Result Comment: mL/m in/1.73m2 CKD-EPI Creatinine Equation (2020) Performed By: #### L 500.4050, L501.2450, L100.0100 #### [facility] [address] [place], [address] Glucose [Mass/Vol] 86 mg/dL Normal 70-99 [facility] Comment on above: Performed By: #### L 500.4050, L501.2450, L100.0100 #### [facility] [address] [place], [address] Potassium [Moles/Vol] 3.2 mmol/L Low 3.3-5.1 [facility] Comment on above: Performed By: #### L 500.4050, L501.2450, L100.0100 #### [facility] [address] [place], [address] Sodium [Moles/Vol] 129 mmol/L Low 133-145 [facility] Comment on above: Performed By: #### L 500.4050, L501.2450, L100.0100 #### [facility] [address] [place], [address] Urea nitrogen [Mass/Vol] 10 mg/dL Normal 4-19 [facility] Comment on above: Performed By: #### L 500.4050, L501.2450, L100.0100 #### [facility] [address] [place], [address] Basophil percentageOrdered B y: Maria Ines Ceja on 12-04-2024 Basophils/100 WBC (Bld) 0.3 % 0-1 [facility] Bilirubin directOrdered By: Maria Ines Ceja on 12-04-2024 Bilirubin.direct [Mass/Vol] 11.30 mg/dL High 0.00-0.30 [facility] Bilirubin, Directon 12-05-19 25 Bilirubin.direct [Mass/Vol] 9.8 mg/dL High 0.0 - 0.3 mg/dL [facility] Bilirubin, totalOrdered By: Maria Ines Ceja on 12-04-2024 Bilirubin [Mass/Vol] 15.40 mg/dL High 0.00-1.30 [facility] Comment on above: CRITICAL RESULTS JOSE LED TO LMCCLAIN BY CASSIE BALES. RESULTS READ BACK BY SAME. 1355 Bilirubin.direct [Mass/Vol]o n 12-04-2024 Interpretation and review of laboratory results Abnormal [facility] Bilirubin.glucuronidated+Seth irubin.albumin boundon 12-04-2024 Bilirubin.direct [Mass/Vol] 9.8 mg/dL High 0.0-0.[address] [facility] Comment on above: Performed By: #### 1 968-7 #### ANA M Soler ([id number]) [facility] ([facility]) [address] [place] [address] CBC W Auto Differential pane l (Bld)on 12-04-2024 Basophils (Bld) [#/Vol] 0.03 10*3/uL [facility] Basophils/100 WBC (Bld) 0.2 % 0.0 - 2.0 % [facility] Eosinophils (Bld) [#/Vol] 0.01 10*3/uL [facility] Eosinophils/100 WBC (Bld) 0.1 % 0.0 - 6.0 % [facility] Erythrocyte distribution width (RBC) [Ratio] 15.5 % High 11.5 - 14.5 % [facility] Hematocrit (Bld) [Volume fraction] 32.6 % Low 41.0 - 52.0 % [facility] Hemoglobin (Bld) [Mass/Vol] 12.1 g/dL Low 13.5 - 17.5 g/dL [facility] Immature granulocytes (Bld) [#/Vol] 0.24 10*3/uL [facility] Immature granulocytes/100 WBC (Bld) 1.4 % High 0.0 - 0.9 % [facility] Interpretation and review of laboratory results Abnormal [facility] Lymphocytes (Bld) [#/Vol] 1.11 10*3/uL Low [facility] Lymphocytes/100 WBC (Bld) 6.3 % 13.0 - 44.0 % [facility] MCH (RBC) [Entitic mass] 37.9 pg High 26.0 - 34.0 pg [facility] MCHC (RBC) [Mass/Vol] 37.1 g/dL High 32.0 - 36.0 g/dL [facility] MCV (RBC) [Entitic vol] 102 fL High 80 - 100 fL [facility] Monocytes (Bld) [#/Vol] 1.07 10*3/uL [facility] Monocytes/100 WBC (Bld) 6.0 % 2.0 - 10.0 % [facility] Neutrophils (Bld) [#/Vol] 15.27 10*3/uL [facility] Neutrophils/100 WBC (Bld) 86.0 % 40.0 - 80.0 % [facility] Nucleated RBC/100 WBC (Bld) [Ratio] 0.2 % [facility] Platelets (Bld) [#/Vol] 94 10*3/uL [facility] RBC (Bld) [#/Vol] 3.19 10*6/uL [facility] WBC (Bld) [#/Vol] 17.7 10*3/uL [facility] Basophils (Bld) [#/Vol] 0.03 x10*3/uL Normal 0.00-0.[address] [facility] Comment on above: Performed By: #### 5 7021-8 #### ANA M Soler ([id number]) [facility] ([facility]) [address] [place] [address] Basophils/100 WBC (Bld) 0.2 % Normal 0.0-2.[address] [facility] Comment on above: Performed By: #### 5 7021-8 #### ANA M Soler ([id number]) [facility] ([facility]) [address] [place] [address] Eosinophils (Bld) [#/Vol] 0.01 x10*3/uL Normal 0.00-0.[address] [facility] Comment on above: Performed By: #### 5 7021-8 #### ANA M AVINA L ([id number]) [facility] ([facility]) [address] [place] [address] Eosinophils/100 WBC (Bld) 0.1 % Normal 0.0-6.[address] [facility] Comment on above: Performed By: #### 5 7021-8 #### ANA M Soler ([id number]) [facility] ([facility]) [address] [place] [address] Erythrocyte distribution width (RBC) [Ratio] 15.5 % High 11.5-14.[address] [facility] Comment on above: Performed By: #### 5 7021-8 #### ANA M Soler ([id number]) [facility] ([facility]) [address] [place] [address]67[address] Hematocrit (Bld) [Volume fraction] 32.6 % Low 41.0-52.[address] [facility] Comment on above: Performed By: #### 5 7021-8 #### ANA M Soler ([id number]) [facility] ([facility]) [address] [place] [address] 22813 Hemoglobin (Bld) [Mass/Vol] 12.1 g/dL Low 13.5-17.[address] [facility] Comment on above: Performed By: #### 5 7021-8 #### ANA M Soler ([id number]) [facility] ([facility]) [address] [place] [address] 87945 Immature granulocytes (Bld) [#/Vol] 0.24 x10*3/uL Normal 0.00-0.[address] [facility] Comment on above: Performed By: #### 5 7021-8 #### ANA M Soler ([id number]) [facility] ([facility]) [address] [place] [address] 71669 Immature granulocytes/100 WBC (Bld) 1.4 % High 0.0-0.[address] [facility] Comment on above: Result Comment: Johanna ture Granulocyte Count (IG) includes promyelocytes, myelocytes and metamyelocytes but does not include bands. Percent differential counts (%) should be interpreted in the context of the absolute cell counts (cells/UL). Performed By: #### 5 7021-8 #### ANA M Soler ([id number]) [facility] ([facility]) [address] [place] [address] Lymphocytes (Bld) [#/Vol] 1.11 x10*3/uL Low 1.20-4.[address] [facility] Comment on above: Performed By: #### 5 7021-8 #### ANA M Soler ([id number]) [facility] ([facility]) [address] [place] [address] Lymphocytes/100 WBC (Bld) 6.3 % Normal 13.0-44.[address] [facility] Comment on above: Performed By: #### 5 7021-8 #### ANA M Soler ([id number]) [facility] ([facility]) [address] [place] [address] MCH (RBC) [Entitic mass] 37.9 pg High 26.0-34.[address] [facility] Comment on above: Performed By: #### 5 7021-8 #### ANA M Soler ([id number]) [facility] ([facility]) [address] [place] [address]999 MCHC (RBC) [Mass/Vol] 37.1 g/dL High 32.0-36.0 [facility] Comment on above: Performed By: #### 5 7021-8 #### ANA M Soler ([id number]) [facility] ([facility]) [address] [place] [address]2366 MCV (RBC) [Entitic vol] 102 fL High 80-[address] [facility] Comment on above: Performed By: #### 5 7021-8 #### ANA M Soler ([id number]) [facility] ([facility]) [address] [place] [address] 93919 Monocytes (Bld) [#/Vol] 1.07 x10*3/uL High 0.10-1.[address] [facility] Comment on above: Performed By: #### 5 7021-8 #### ANA M Soler ([id number]) [facility] ([facility]) [address] [place] [address]4920 Monocytes/100 WBC (Bld) 6.0 % Normal 2.0-10.[address] [facility] Comment on above: Performed By: #### 5 7021-8 #### ANA M Soler ([id number]) [facility] ([facility]) [address] [place] [address] Neutrophils (Bld) [#/Vol] 15.27 x10*3/uL High 1.20-7.[address] [facility] Comment on above: Result Comment: Perc ent differential counts (%) should be interpreted in the context of the absolute cell counts (cells/uL). Performed By: #### 5 7021-8 #### ANA M Soler ([id number]) [facility] ([facility]) [address] [place] [address] 37625 Neutrophils/100 WBC (Bld) 86.0 % Normal 40.0-80.[address] [facility] Comment on above: Performed By: #### 5 7021-8 #### ANA M Soler ([id number]) [facility] ([facility]) [address] [place] [address]329 Nucleated RBC/100 WBC (Bld) [Ratio] 0.2 /100 WBCs High 0.0-0.0 [facility] [facility] Comment on above: Performed By: #### 5 7021-8 #### ANA M Soler ([id number]) [facility] ([facility]) [address] [place] [address] Platelets (Bld) [#/Vol] 94 x10*3/uL Low 150-[address] [facility] Comment on above: Performed By: #### 5 7021-8 #### ANA M Soler ([id number]) [facility] ([facility]) [address] [place] [address] RBC (Bld) [#/Vol] 3.19 x10*6/uL Low 4.50-5.90 [facility] Comment on above: Performed By: #### 5 7021-8 #### ANA M Soler ([id number]) [facility] ([facility]) [address] [place] [address] 12261 WBC (Bld) [#/Vol] 17.7 x10*3/uL High 4.4-11.3 [facility] Comment on above: Performed By: #### 5 7021-8 #### ANA M Soler ([id number]) [facility] ([facility]) [address] [place] [address] CBC W/Diff, Automatedon 08-2 Absolute Lymph 1.11 X10 3/uL Normal 0.83-4.51 [facility] Comment on above: Performed By: #### L 500.4050, L501.2450, L100.0100 #### [facility] [address] [place], [address] Absolute Neut 13.4 X10 3/uL High 2.0-7.7 [facility] Comment on above: Performed By: #### L 500.4050, L501.2450, L100.0100 #### [facility] [address] [place], [address] Basophils/100 WBC (Bld) 0.3 % Normal 0-1 [facility] Comment on above: Performed By: #### L 500.4050, L501.2450, L100.0100 #### [facility] [address] [place], [address] Eosinophils/100 WBC (Bld) 0.1 % Normal 0-5 [facility] Comment on above: Performed By: #### L 500.4050, L501.2450, L100.0100 #### [facility] [address] [place], [address] Erythrocyte distribution width (RBC) [Ratio] 16.2 % High 11.6-14.6 [facility] Comment on above: Performed By: #### L 500.4050, L501.2450, L100.0100 #### [facility] [address] [place], [address] Hematocrit (Bld) [Volume fraction] 35.9 % Low 40-54 [facility] Comment on above: Performed By: #### L 500.4050, L501.2450, L100.0100 #### [facility] [address] [place], [address] Hemoglobin (Bld) [Mass/Vol] 13.0 g/dL Normal 13.0-16.5 [facility] Comment on above: Performed By: #### L 500.4050, L501.2450, L100.0100 #### [facility] [address] [place], [address] IG% 0.600 Normal 0.0-0.9 [facility] Comment on above: Result Comment: IG% - Immature Granulocytes (promyelocytes, myelocytes and metamyelocytes) > 1% indicates that a LEFT SHIFT is Present. Performed By: #### L 500.4050, L501.2450, L100.0100 #### [facility] [address] [place], [address] Lymphocytes/100 WBC (Bld) 7.1 % Low 19-41 [facility] Comment on above: Performed By: #### L 500.4050, L501.2450, L100.0100 #### [facility] [address] [place], [address] MCH (RBC) [Entitic mass] 38.7 pg High 27.0-32.0 [facility] Comment on above: Performed By: #### L 500.4050, L501.2450, L100.0100 #### [facility] [address] [place], [address] MCHC (RBC) [Mass/Vol] 36.2 g/dL High 32-36 [facility] Comment on above: Performed By: #### L 500.4050, L501.2450, L100.0100 #### [facility] [address] [place], [address] MCV (RBC) [Entitic vol] 106.8 fL High 80-94 [facility] Comment on above: Performed By: #### L 500.4050, L501.2450, L100.0100 #### [facility] [address] [place], [address] Monocytes/100 WBC (Bld) 5.7 % Normal 0-10 [facility] Comment on above: Performed By: #### L 500.4050, L501.2450, L100.0100 #### [facility] [address] [place], [address] Neutrophils/100 WBC (Bld) 86.2 % High 47-70 [facility] Comment on above: Performed By: #### L 500.4050, L501.2450, L100.0100 #### [facility] [address] [place], [address] Nucleated RBC (Bld) [#/Vol] 0 10*3/uL Normal 0-5 [facility] Comment on above: Performed By: #### L 500.4050, L501.2450, L100.0100 #### [facility] [address] [place], [address] Platelet mean volume (Bld) [Entitic vol] 12.9 fL High 6.2-12.0 [facility] Comment on above: Performed By: #### L 500.4050, L501.2450, L100.0100 #### [facility] [address] [place], [address] Platelets (Bld) [#/Vol] 101 10*3/uL Low 150-450 [facility] Comment on above: Performed By: #### L 500.4050, L501.2450, L100.0100 #### [facility] [address] [place], [address] RBC (Bld) [#/Vol] 3.36 10*6/uL Low 4.6-6.2 [facility] Comment on above: Performed By: #### L 500.4050, L501.2450, L100.0100 #### [facility] [address] [place], [address] RDW SD 63.7 fl High 35.1-43.9 [facility] Comment on above: Performed By: #### L 500.4050, L501.2450, L100.0100 #### [facility] [address] [place], [address] WBC (Bld) [#/Vol] 15.6 10*3/uL High 4.4-11.0 [facility] Comment on above: Performed By: #### L 500.4050, L501.2450, L100.0100 #### [facility] [address] [place], [address] CNOVon 12-04-2024 CNOV Office Visit ([facility]) ----- JOSE PARKER ([id number]) 1980 M Date Time Provider Department 12/04/24 [...] Date 12/04/2024 Noted Resolved SPRAIN SHOULDER/ARM NOS [[id number]] 04/26/2006 ALLERGIC RHINITIS NOS [J30.9] 09/12/2006 ESOPHAGEAL REFLUX [K21.9] 03/26/2007 Migraine [G43.909] 11/24/2009 (more content not included)... Normal [facility] CT TRANSFER OF OUTSIDE FILMS on 12-04-2024 CT TRANSFER OF OUTSIDE FILMS Outside images for comparison or treatment purposes, not interpreted by Radiologists. Normal [facility] Carbon dioxide, total [Moles /volume] in Central venous bloodOrdered By: Maria Ines Ceja on 12-04-2024 CO2 [Moles/Vol] 20.1 mmol/L Low 21.0-32.0 [facility] Cell count panel (Body fld)o n 12-04-2024 Clarity (Body fld) Clear Normal [facility] Comment on above: Order Comment: First to runBody Fluid cell count reference ranges have not been established by [facility]. Reference ranges provided are based on published references. Performed By: #### 1 6362-6 #### ANA M Soler ([id number]) [facility] ([facility]) [address] [place] [address] Color (Body fld) Yellow Normal Colorless, Straw, Yellow [facility] Comment on above: Order Comment: First to runBody Fluid cell count reference ranges have not been established by [facility]. Reference ranges provided are based on published references. Performed By: #### 1 6362-6 #### ANA M Soler ([id number]) [facility] ([facility]) [address] [place] [address] RBC Auto (Body fld) [#/Vol] 2000 /uL Normal see comment [facility] Comment on above: Order Comment: First to runBody Fluid cell count reference ranges have not been established by [facility]. Reference ranges provided are based on published references. Result Comment: BAL/ Synovial/Peritoneal/Pericardial/Pleural Fluid Reference Range: 0 cells/uL Performed By: #### 1 6362-6 #### ANA M SCHULTZMOTZER Ryder ([id number]) [facility] ([facility]) [address] [place] [address]83[address] WBC (Body fld) [#/Vol] 0.133 10*3/uL Normal See Commnegrito t [facility] Comment on above: Order Comment: First to runBody Fluid cell count reference ranges have not been established by [facility]. Reference ranges provided are based on published references. Result Comment: BAL/ Synovial/Peritoneal/Pericardial/Pleural Fluid Reference Range: <500 cells/uL Performed By: #### 1 6362-6 #### ANA M Soler ([id number]) [facility] ([facility]) [address] [place] [address] Chloride assayOrdered By: Kahlil Ceja on 12-04-2024 Chloride [Moles/Vol] 88 mmol/L Low 98-108 [facility] Coagulation surface inducedo n 12-04-2024 aPTT Coag (PPP) [Time] 27 s Normal 26-36 [facility] Comment on above: Order Comment: The A PTT is no longer used for monitoring Unfractionated Heparin Therapy. For monitoring Heparin Therapy, use the Heparin Assay. Performed By: #### 1 4979-9 #### ANA M Soler ([id number]) [facility] ([facility]) [address] [place] [address] 54486 Coagulation tissue factor in ducedon 12-04-2024 PT Coag (PPP) [Time] 18.7 s High 9.8-12.4 [facility] Comment on above: Performed By: #### 5 902-2 #### ANA M Soler ([id number]) [facility] ([facility]) [address] [place] [address]10 Comprehensive metabolic 2000 panelon 12-04-2024 Albumin BCP dye [Mass/Vol] 3.7 g/dL 3.4 - 5.0 g/dL [facility] ALP [Catalytic activity/Vol] 196 U/L High 33 - 120 U/L [facility] ALT With P-5'-P [Catalytic activity/Vol] 56 U/L High 10 - 52 U/L [facility] Anion gap [Moles/Vol] 21 mmol/L High 10 - 2 0 mmol/L [facility] AST With P-5'-P [Catalytic activity/Vol] 185 U/L High 9 - 39 U/L [facility] Bilirubin [Mass/Vol] 17.9 mg/dL High 0.0 - 1 .2 mg/dL [facility] Calcium [Mass/Vol] 8.5 mg/dL Low 8.6 - 10. 6 mg/dL [facility] Chloride [Moles/Vol] 88 mmol/L Low 98 - 10 7 mmol/L [facility] CO2 [Moles/Vol] 23 mmol/L 21 - 32 mmol/L [facility] Creatinine [Mass/Vol] 0.77 mg/dL 0.50 - 1.30 mg/dL [facility] eGFR - PINF [facility] Glucose [Mass/Vol] 84 mg/dL 74 - 99 mg/dL [facility] Potassium [Moles/Vol] 5.5 mmol/L High 3.5 - 5.3 mmol/L [facility] Protein [Mass/Vol] 6.5 g/dL 6.4 - 8.2 g/dL [facility] Sodium [Moles/Vol] 126 mmol/L Low 136 - 145 mmol/L [facility] Urea nitrogen [Mass/Vol] 13 mg/dL 6 - 23 mg/dL [facility] Albumin BCP dye [Mass/Vol] 3.7 g/dL Normal 3.4-5.[address] [facility] Comment on above: Performed By: #### 2 4323-8 #### ANA M Soler ([id number]) [facility] ([facility]) [address] [place] [address] ALP [Catalytic activity/Vol] 196 U/L High 33-[address] [facility] Comment on above: Performed By: #### 2 4323-8 #### ANA M Soler ([id number]) [facility] ([facility]) [id number] [place] [address] 56681 ALT With P-5'-P [Catalytic activity/Vol] 56 U/L High 10-[address] [facility] Comment on above: Result Comment: Kala ents treated with Sulfasalazine may generate falsely decreased results for ALT. Performed By: #### 2 4323-8 #### ANA M Soler ([id number]) [facility] ([facility]) [address] [place] [address] Anion gap [Moles/Vol] 21 mmol/L High 10-20 [facility] Comment on above: Performed By: #### 2 4323-8 #### ANA M Soler ([id number]) [facility] ([facility]) [address] [place] [address] AST With P-5'-P [Catalytic activity/Vol] 185 U/L High 9-[address] [facility] Comment on above: Result Comment: MODE RATE HEMOLYSIS DETECTED. The result may be falsely elevated due to hemolysis or other interferents. Clinical correlation is recommended. Repeat testing may be considered. Performed By: #### 2 4323-8 #### ANA M Soler ([id number]) [facility] ([facility]) [address] [place] [address]77[address] Bilirubin [Mass/Vol] 17.9 mg/dL High 0.0-1.2 [facility] Comment on above: Performed By: #### 2 4323-8 #### ANA M Soler ([id number]) [facility] ([facility]) [address] [place] [address] 48[address] Calcium [Mass/Vol] 8.5 mg/dL Low 8.6-10.6 [facility] Comment on above: Performed By: #### 2 4323-8 #### ANA M Soler ([id number]) [facility] ([facility]) [address] [place] [address] 494[address] Chloride [Moles/Vol] 88 mmol/L Low 98-107 [facility] Comment on above: Performed By: #### 2 4323-8 #### ANA M Soler ([id number]) [facility] ([facility]) [address] [place] [address] CO2 [Moles/Vol] 23 mmol/L Normal 21-32 [facility] Comment on above: Performed By: #### 2 4323-8 #### ANA M Soler ([id number]) [facility] ([facility]) [address] [place] [address]258 Creatinine [Mass/Vol] 0.77 mg/dL Normal 0.50-1.30 [facility] Comment on above: Performed By: #### 2 432-8 #### ANA M Soler ([id number]) [facility] ([facility]) [address] [place] [address] Glomerular filtration rate >90 Normal >[address] [facility] Comment on above: Result Comment: Calc ulations of estimated GFR are performed using the 2020 CKD-EPI Study Refit equation without the race variable for the IDMS-Traceable creatinine methods. https://jasn.asnjournals.org/content//ASN.14816 42458 Performed By: #### 2 4323-8 #### ANA M AVINA L ([id number]) [facility] ([facility]) [address] [place] [address] Glucose [Mass/Vol] 84 mg/dL Normal 74-99 [facility] Comment on above: Performed By: #### 2 4323-8 #### ANA M AVINA L ([id number]) [facility] ([facility]) [address] [place] [address]13 Potassium [Moles/Vol] 5.5 mmol/L High 3.5-5.3 [facility] Comment on above: Result Comment: MODE RATE HEMOLYSIS DETECTED. The result may be falsely elevated due to hemolysis or other interferents. Clinical correlation is recommended. Repeat testing may be considered. Performed By: #### 2 4323-8 #### ANA M AVINA L ([id number]) [facility] ([facility]) [address] [place] [address] Protein [Mass/Vol] 6.5 g/dL Normal 6.4-8.2 [facility] Comment on above: Performed By: #### 2 4323-8 #### ANA M SCHULTZMOTZER L ([id number]) [facility] ([facility]) [address] [place] [address] Sodium [Moles/Vol] 126 mmol/L Low 136-145 [facility] Comment on above: Performed By: #### 2 4323-8 #### ANA M INMANER L ([id number]) [facility] ([facility]) [address] [place] [address] Urea nitrogen [Mass/Vol] 13 mg/dL Normal 6- [facility] Comment on above: Performed By: #### 2 4323-8 #### ANA M Soler ([id number]) [facility] ([facility]) [address] [place] [address] 11543 Differential panel (Body fld )on 12-04-2024 Cells Counted Total (Body fld) [#] [address] [facility] Comment on above: Order Comment: First to runBody Fluid cell differential reference ranges have not been established by [facility]. Reference ranges provided are based on published references. Performed By: #### 2 4323-8 #### ANA M Soler ([id number]) [facility] ([facility]) [address] [place] [address] Eosinophils/100 WBC Manual cnt (Body fld) 5 % Normal see comment [facility] Comment on above: Order Comment: First to runBody Fluid cell differential reference ranges have not been established by [facility]. Reference ranges provided are based on published references. Result Comment: BAL Reference Range: <1% Performed By: #### 2 4323-8 #### ANA M Soler ([id number]) [facility] ([facility]) [address] [place] [address] 39661 Lymphocytes/100 WBC Manual cnt (Body fld) 6 % Normal see comment [facility] Comment on above: Order Comment: First to runBody Fluid cell differential reference ranges have not been established by [facility]. Reference ranges provided are based on published references. Result Comment: Syno vial/Peritoneal/Pericardial/Pleural Fluid Reference Range: <75% BAL Reference Range: <10% Performed By: #### 2 4323-8 #### ANA M Soler ([id number]) [facility] ([facility]) [address] [place] [address] 83207 Monocytes+Macrophages/ 100 WBC Manual cnt (Body fld) 46 % Normal see comment [facility] Comment on above: Order Comment: First to runBody Fluid cell differential reference ranges have not been established by [facility]. Reference ranges provided are based on published references. Result Comment: Syno vial/Peritoneal/Pericardial/Pleural Fluid Reference Range: <70% BAL Reference Range: 87-100% Performed By: #### 2 4323-8 #### ANA M Soler ([id number]) [facility] ([facility]) [address] [place] [address] Neutrophils/100 WBC (Body fld) 43 % Normal see comment [facility] Comment on above: Order Comment: First to runBody Fluid cell differential reference ranges have not been established by [facility]. Reference ranges provided are based on published references. Result Comment: Syno vial/Peritoneal/Pericardial/Pleural Fluid Reference Range: <25% BAL Reference Range: <2% Performed By: #### 2 4323-8 #### ANA M Soler ([id number]) [facility] ([facility]) [address] [place] [address] Drugs of abuse screen W Refl ex confirm panel (U)on 12-04-2024 Amphetamines Screen Ql (U) Negative Normal Presumptive Negative [facility] Comment on above: Order Comment: Drug screen [...] #### 1 6362-6 #### ANA M Soler ([id number]) [facility] ([facility]) [address] [place] [address] Barbiturates Screen Ql (U) Negative Normal Presumptive Negative [facility] Comment on above: Order Comment: Drug screen [...] #### 1 6362-6 #### ANA M Soler ([id number]) [facility] ([facility]) [address] [place] [address] Benzodiazepines Ql (U) Negative Normal Presu mptive Negative [facility] Comment on above: Order Comment: Drug screen [...] 1 6362-6 #### ANA M AVINA L ([id number]) [facility] ([facility]) [address] [place] [address] Benzoylecgonine Screen Ql (U) Negative Normal Presumptive Negative [facility] Comment on above: Order Comment: Drug screen [...] #### 1 6362-6 #### ANA M Soler ([id number]) [facility] ([facility]) [address] [place] [address] Cannabinoids Screen Ql (U) Negative Normal Presumptive Negative [facility] Comment on above: Order Comment: Drug screen [...] #### 1 6362-6 #### ANA M Soler ([id number]) [facility] ([facility]) [address] [place] [address] fentaNYL+Norfentanyl Screen Ql (U) Negative Normal Presumptive Negative [facility] Comment on above: Order Comment: Drug screen [...] #### 1 6362-6 #### ANA M Soler ([id number]) [facility] ([facility]) [address] [place] [address] Methadone Screen Ql (U) Negative Normal Presumptive Negative [facility] Comment on above: Order Comment: Drug screen [...] CUTO FF LEVEL: 150 NG/ML The metabolite G-wbylc-bgbcbxeiqeqtrl (LAAM) is not detected by this method in concentrations that would be found in the urine of patients on LAAM therapy. Performed By: #### 1 6362-6 #### ANA M Soler ([id number]) [facility] ([facility]) [address] [place] [address] Opiates Screen Ql (U) Negative Normal Presum ptive Negative [facility] Comment on above: Order Comment: Drug screen [...] #### 1 6362-6 #### ANA M Soler ([id number]) [facility] ([facility]) [address] [place] [address] oxyCODONE+oxyMORphone Screen Ql (U) Negative Normal Presumptive Negative [facility] Comment on above: Order Comment: Drug screen [...] #### 1 6362-6 #### ANA M Soler ([id number]) [facility] ([facility]) [address] [place] [address] Phencyclidine Ql (U) Negative Normal Presump tive Negative [facility] Comment on above: Order Comment: Drug screen [...] #### 1 6362-6 #### ANA M Soler ([id number]) [facility] ([facility]) [address] [place] [address] 42755 ECG 12-LEADon 12-04-2024 ECG 12-LEAD Ventricular Rate 124 Atrial Rate 124 P-R Interval 156 QRS Duration 74 Q-T Interval 334 QTC Calculation(Bazett) 479 P [place] 35 R [place] -11 T [place] 49 QRS Count 21 Q Onset 218 P Onset 140 P Offset 194 T Offset 385 QTC Fredericia 425 Diagnosis Sinus tachycardia Possible Left atrial enlargement Cannot rule out Anterior infarct , age undetermined Abnormal ECG No previous ECGs available See ED provider note for full interpretation and clinical correlation Confirmed by Rekha Armstrong ([id number]) on 2024 7:08:02 AM Normal [facility] ELECTROLYTE PANEL, URINEon 0 12-04-2024 Chloride (U) [Moles/Vol] mmol/L Normal [facility] Comment on above: Performed By: #### 3 040-3 #### ANA M Soler ([id number]) [facility] ([facility]) [address] [place] [address] 76282 CHLORIDE/CREATININE (MMOL/G) IN URINE Normal [facility] Comment on above: Result Comment: One or more analytes used in this calculation is outside of the analytical measurement range. Calculation cannot be performed. Performed By: #### 3 040-3 #### ANA M Soler ([id number]) [facility] ([facility]) [address] [place] [address] 85764 Creatinine (U) [Mass/Vol] 179.6 mg/dL Normal 20.0-370.[address] [facility] Comment on above: Performed By: #### 3 040-3 #### ANA M Soler ([id number]) [facility] ([facility]) [address] [place] [address] 61822 Potassium (U) [Moles/Vol] 38 mmol/L Normal [facility] Comment on above: Performed By: #### 3 040-3 #### ANA M Soler ([id number]) [facility] ([facility]) [address] [place], [place] [address] Potassium/Creatinine (U) [Ratio] 21 mmol/g Creat Normal Not established [facility] Comment on above: Performed By: #### 3 040-3 #### ANA M Soler ([id number]) [facility] ([facility]) [address] [place] [address] 35848 Sodium (U) [Moles/Vol] mmol/L Normal [facility] Comment on above: Performed By: #### 3 040-3 #### ANA M Soler ([id number]) [facility] ([facility]) [id number] [place] [address] 48342 Sodium/Creatinine (U) [Ratio] Normal [facility] Comment on above: Result Comment: One or more analytes used in this calculation is outside of the analytical measurement range. Calculation cannot be performed. Performed By: #### 3 040-3 #### ANA M Soler ([id number]) [facility] ([facility]) [address] [place] [address] 65952 Eosinophil percentageOrdered By: Maria Ines Ceja on 12-04-2024 Eosinophils/100 WBC (Bld) 0.1 % 0-5 [facility] Erythrocyte distribution wid th ratioOrdered By: Maria Ines Ceja on 12-04-2024 Erythrocyte distribution width (RBC) [Ratio] 16.2 % High 11.6-14.6 [facility] Erythrocyte distribution wid th standard deviationOrdered By: Maria Ines Ceja on 12-04-2024 Erythrocyte distribution width (RBC) [Ratio] 63.7 fl High 35.1-43.9 [facility] Ferritinon 12-04-2024 Ferritin [Mass/Vol] 2253 ng/mL High 20-300 [facility] Comment on above: Performed By: #### 2 4323-8 #### ANA M Soler ([id number]) [facility] ([facility]) [address] [place] [address] Gamma glutamyl transferase ( GGT) measurementOrdered By: Maria Ines Ceja on 12-04-2024 Amylase [Catalytic activity/Vol] 1155 U/L High 0-65 [facility] Gas panel (BldV)on Anion gap 4 (BldV) [Moles/Vol] 10.0 mmol/L 10.0 - 25.0 mmol/L [facility] Base excess Calc (BldV) [Moles/Vol] 5.5 mmol/L High -2.0 - 3.0 mmol/L [facility] Calcium.ionized (BldV) [Moles/Vol] 1.05 mmol/L Low 1.10 - 1.33 mmol/L [facility] Chloride (BldV) [Moles/Vol] 90 mmol/L Low 98 - 107 mmol/L [facility] CO2 (BldV) [Partial pressure] 37 mm[Hg] Low [facility] Glucose [Mass/Vol] 90 mg/dL 74 - 99 mg/dL [facility] HCO3 (Bld) [Moles/Vol] 28.9 mmol/L High 22.0 - 26.0 mmol/L [facility] Hematocrit Est (Bld) [Volume fraction] 45.0 % 41.0 - 52.0 % [facility] Hemoglobin (Bld) [Mass/Vol] 15.1 g/dL 13.5 - 17.5 g/dL [facility] Interpretation and review of laboratory results Abnormal [facility] Lactate (BldV) [Moles/Vol] 1.9 mmol/L 0.4 - 2.0 mmol/L [facility] Oxygen (BldV) [Partial pressure] 41 mm[Hg] [facility] Oxygen saturation in Venous blood 61 % 45 - 75 % [facility] Oxyhemoglobin (BldV) [Mass fraction] 58.8 % 45.0 - 75.0 % [facility] pH (BldV) 7.50 [pH] High 7.33 - 7.43 pH [facility] Potassium (BldV) [Moles/Vol] 3.6 mmol/L 3.5 - 5.3 mmol/L [facility] Sodium (BldV) [Moles/Vol] 125 mmol/L Low 136 - 145 mmol/L [facility] Anion gap 4 (BldV) [Moles/Vol] 10.0 mmol/L Normal 10.0-25.[address] [facility] Comment on above: Performed By: #### 2 4339-4 #### ANA M Soler ([id number]) [facility] ([facility]) [address] [place] [address] Base excess Calc (BldV) [Moles/Vol] 5.5 mmol/L High -2.0-3.[address] [facility] Comment on above: Performed By: #### 2 4339-4 #### ANA M Soler ([id number]) [facility] ([facility]) [address] [place] [address] 10101 Calcium.ionized (BldV) [Moles/Vol] 1.05 mmol/L Low 1.10-1.[address] [facility] Comment on above: Performed By: #### 2 4339-4 #### ANA M Soler ([id number]) [facility] ([facility]) [address] [place] [address] 31026 Chloride (BldV) [Moles/Vol] 90 mmol/L Low 98-[address] [facility] Comment on above: Performed By: #### 2 4339-4 #### ANA M Soler ([id number]) [facility] ([facility]) [address] [place] [address] CO2 (BldV) [Partial pressure] 37 mm Hg Low 41-[address] [facility] Comment on above: Performed By: #### 2 4339-4 #### ANA M Soler ([id number]) [facility] ([facility]) [address] [place] [address] Glucose [Mass/Vol] 90 mg/dL Normal 74-99 [facility] Comment on above: Performed By: #### 2 4339-4 #### ANA M Soler ([id number]) [facility] ([facility]) [address] [place] [address] 56519 HCO3 (Bld) [Moles/Vol] 28.9 mmol/L High 22.0-26.0 [facility] Comment on above: Performed By: #### 2 4339-4 #### ANA M Soler ([id number]) [facility] ([facility]) [address] [place] [address] 77033 Hematocrit Est (Bld) [Volume fraction] 45.0 % Normal 41.0-52.[address] [facility] Comment on above: Performed By: #### 2 4339-4 #### ANA M Soler ([id number]) [facility] ([facility]) [address] [place] [address] 11873 Hemoglobin (Bld) [Mass/Vol] 15.1 g/dL Normal 13.5-17.[address] [facility] Comment on above: Performed By: #### 2 4339-4 #### ANA M Soler ([id number]) [facility] ([facility]) [address] [place] [address] 75808 Lactate (BldV) [Moles/Vol] 1.9 mmol/L Normal 0.4-2.[address] [facility] Comment on above: Performed By: #### 2 4339-4 #### ANA M Soler ([id number]) [facility] ([facility]) [address] [place] [address] 67996 Oxygen (BldV) [Partial pressure] 41 mm Hg Normal 35-[address] [facility] Comment on above: Performed By: #### 2 4339-4 #### ANA M Soler ([id number]) [facility] ([facility]) [address] [place] [address] 73223 Oxygen saturation in Venous blood 61 % Normal 45-[address] [facility] Comment on above: Performed By: #### 2 4339-4 #### ANA M Soler ([id number]) [facility] ([facility]) [address] [place] [address] 99799 Oxyhemoglobin (BldV) [Mass fraction] 58.8 % Normal 45.0-75.[address] [facility] Comment on above: Performed By: #### 2 4339-4 #### ANA M Soler ([id number]) [facility] ([facility]) [address] [place] [address] 03424 pH (BldV) 7.50 [pH] High 7.33-7.[address] [facility] Comment on above: Performed By: #### 2 4339-4 #### ANA M Soler ([id number]) [facility] ([facility]) [address] [place] [address] 48956 Potassium (BldV) [Moles/Vol] 3.6 mmol/L Normal 3.5-5.[address] [facility] Comment on above: Performed By: #### 2 4339-4 #### ANA M Soler ([id number]) [facility] ([facility]) [address] [place] [address] 04572 Sodium (BldV) [Moles/Vol] 125 mmol/L Low 136-[address] [facility] Comment on above: Performed By: #### 2 4339-4 #### ANA M Soler ([id number]) [facility] ([facility]) [address] [place] [address] 00074 Gastroenterology Visit Repor ton 12-04-2024 Gastroenterology Visit Report [facility] [address] [place] [address] OFFICE VISIT Date of Service: 12/04/24 MR#: [id number] Acct: [id number] Name: JOSE PARKER Rep #: [id number] : 1980 Provider: RAJESH bose Age/Sex: 43/M Location: [facility] [place] Status: Signed Intake Vital Signs 12/02/24 14:47 12/04/24 10:35 Height 5 ft 8 in 5 ft 8 in Weight: 174 lb BMI 26.4 BP 123/84 H Blood Pressure Location Rt brachial Position Sitting Pulse 129 H Pulse Oximetry (%) 92 Oxygen Delivery Method room air Intake Visit Reasons: Hospital FU Chief Complaint: abdominal distension and constipation [employer] Required: No Accompanied by: Self Allergies No [...] because it causes bloating HR 120-140's CBC: 8/128803 WBC 16.7, HGB 13.2, MCV 105, PLT [...] soda - reports he saw someone at [facility] for his liver previously in 2021 [...] normal and (more content not included)... Normal [facility] Glomerular filtration rate ( GFR) estimation/1.73 sq m using serum, plasma, or whole bOrdered By: Maria Ines Ceja on 12-04-2024 GFR/1.73 sq M.predicted among non-blacks MDRD (S/P/Bld) [Vol rate/Area] 123 mL/min/{1.73_m2} >60 [facility] Comment on above: mL/min/1.73m2 CKD-EP I Creatinine Equation (2020) Hematocrit Auto (Bld) [Volum e fraction]Ordered By: Maria Ines Ceja on 12-04-2024 Hematocrit (Bld) [Volume fraction] 35.9 % Low 40-54 [facility] Hemoglobin measurementOrdere d By: Maria Ines Ceja on 12-04-2024 Hemoglobin (Bld) [Mass/Vol] 13.0 g/dL 13.0-16.5 [facility] Hepatitis B Surface Antibody on 12-04-2024 HEP B Surf Ab REAC Normal [facility] Comment on above: Result Comment: <8.5 mIU/mL: Non-Reactive 8.5<= x <11.5 mIU/mL: Indeterminate >=11.5 mIU/mL: Reactive Non Reactive: Inconsistent with immunity less than <10 mIU/mL Reactive: Consistent with immunity greater than or equal to 10 mIU/mL Performed By: #### L 500.4050, L501.2450, L100.0100 #### [facility], [address] Hepatitis C Antibodyon 12-04 Hepatitis C Ab Non-Reactive Normal Nonreactive [facility] Comment on above: Result Comment: Reac tive: Presumptive evidence of antibodies to HCV. Follow CDC recommendations for supplemental testing. Non-Reactive: Antibodies to HCV were not detected; does not exclude the possibility of exposure to HCV Reactive Results are presumptive evidence of antibodies to HCV. Follow CDC recommendations for supplemental testing. Order confirmation testing: HCV Quant by PCR testing - HCVPCR lc#[id number] Non Reactive: < 0.8 Equivocal: >/= 0.8 to < 1.0 Reactive: >/= 1.[address] [facility] requires that a reactive/equivocal HCV antibody result be sent out for confirmation. HCV Quant by PCR testing. Performed By: #### L 500.4050, L501.2450, L100.0100 #### [facility] [address] [place], [address] Immature granulocytes/100 WB C Auto (Bld)Ordered By: Maria Ines Ceja on 12-04-2024 Immature granulocytes/100 WBC (Bld) 0.600 % 0.0-0.9 [facility] Comment on above: IG% - Immature Granu locytes (promyelocytes, myelocytes and metamyelocytes) > 1% indicates that a LEFT SHIFT is Present. International normalized rat io (INR) calculationOrdered By: Maria Ines Ceja on 12-04-2024 INR Coag (Bld) [Relative time] 1.2 {INR} [facility] Iron and Iron binding capaci ty panelon 12-04-2024 Iron [Mass/Vol] 70 ug/dL Normal 35-150 [facility] Comment on above: Performed By: #### 2 4323-8 #### ANA M Soler ([id number]) [facility] ([facility]) [address] [place] [address] 44584 Iron binding capacity [Mass/Vol] 160 ug/dL Low 240-[address] [facility] Comment on above: Performed By: #### 2 4323-8 #### ANA M Soler ([id number]) [facility] ([facility]) [address] [place] [address] Iron binding capacity.unsaturated [Mass/Vol] 90 ug/dL Low 110-[address] [facility] Comment on above: Performed By: #### 2 4323-8 #### ANA M Soler ([id number]) [facility] ([facility]) [address] [place] [address] 50402 Iron saturation [Mass fraction] 44 % Normal 25-[address] [facility] Comment on above: Performed By: #### 2 4323-8 #### ANA M Soler ([id number]) [facility] ([facility]) [address] [place] [address] 38503 L3890.6102on 12-04-2024 HEP B Surf Ag Non-Reactive Normal Nonreactive [facility] Comment on above: Result Comment: Reac tive: Presumptive evidence of HBV. Repeatedly reactive samples must be confirmed using a neutralization test ([employer] HBsAg Confirmatory Test) Non-Reactive: HBsAg not detected; does not exclude the possibility of exposure to HBV Performed By: #### L 500.4050, L501.2450, L100.0100 #### [facility] [address] [place], [address] Laboratory - Chemistry and C hemistry - challengeOrdered By: Maria Ines Ceja on 12-04-2024 AST [Catalytic activity/Vol] 196 U/L High <38 [facility] - Microbiology an d Antimicrobial susceptibilityOrdered By: Maria Ines Ceja on 12-04-2024 HBV surface Ag Ql (S) Non-Reactive Nonreactive [facility] Comment on above: Reactive: Presumptiv e evidence of HBV. Repeatedly reactive samples must be confirmed using a neutralization test ([employer] HBsAg Confirmatory Test)Non-Reactive: HBsAg not detected; does not exclude the possibility of exposure to HBV Lipaseon 12-04-2024 Lipase [Catalytic activity/Vol] 70 U/L 9 - 82 U/L [facility] Lipase [Catalytic activity/V ol]on 12-04-2024 Interpretation and review of laboratory results Normal [facility] Liver Profileon 12-04-2024 Albumin [Mass/Vol] 3.6 g/dL Normal 3.5-5.0 [facility] Comment on above: Performed By: #### L 500.4050, L501.2450, L100.0100 #### [facility] [address] [place], [address] ALK PHOS 227 U/L High 40-129 [facility] Comment on above: Performed By: #### L 500.4050, L501.2450, L100.0100 #### [facility] [address] [place], [address] ALT [Catalytic activity/Vol] 72 U/L High <=46 [facility] Comment on above: Performed By: #### L 500.4050, L501.2450, L100.0100 #### [facility] [address] [place], [address] AST [Catalytic activity/Vol] 196 U/L High <=37 [facility] Comment on above: Performed By: #### L 500.4050, L501.2450, L100.0100 #### [facility] [address] [place], [address] Bilirubin [Mass/Vol] 15.40 mg/dL Invalid Interpretation Code 0.00-1.30 [facility] Comment on above: Result Comment: CRIT ICAL RESULTS CALLED TO [facility] BY CASSIE BALES. RESULTS READ BACK BY SAME. 1355 Performed By: #### L 500.4050, L501.2450, L100.0100 #### [facility] [address] [place], [address] Bilirubin.direct [Mass/Vol] 11.30 mg/dL High 0.00-0.30 [facility] Comment on above: Performed By: #### L 500.4050, L501.2450, L100.0100 #### [facility] [address] [place], [address] Globulin (S) [Mass/Vol] 2.6 g/dL Normal 2.2-4.2 [facility] Comment on above: Performed By: #### L 500.4050, L501.2450, L100.0100 #### [facility] [address] [place], [address] T PROT 6.2 g/dL Normal 5.9-8.4 [facility] Comment on above: Performed By: #### L 500.4050, L501.2450, L100.0100 #### [facility] [address] [place], [address] MCV (mean corpuscular volume ) determinationOrdered By: Maria Ines Ceja on 12-04-2024 MCV (RBC) [Entitic vol] 106.8 fL High 80-94 [facility] MR TRANSFER OF OUTSIDE FILMS on 12-04-2024 MR TRANSFER OF OUTSIDE FILMS Outside images for comparison or treatment purposes, not interpreted by Radiologists. [facility] Comment on above: Order Comment: [id number]; Pao Santos ([email or web address]); [id number] exam changed to Transfer of Outside Films per Dr. Jose Coffey request; MRI Abd WITH and W/O Contras ton 12-04-2024 MRI Abd WITH and W/O Contrast [facility] Imaging Services [address] [place], [place] [address] MRI Abd WITH and W/O Contrast MR#: [id number] Acct: [id number] Name: JOSE PARKER Rep #: [id number] : 1980 M 43 From: Brianna regalado MD PCP: RAJESH Redd Status: REG CLI Study: MRI Abd WITH and W/O Contrast Date of Exam: Exam# [id number] Ordering Dr: Maria Ines Ceja PROCEDURE: MRI [...] probably secondary to portal hypertension/ascites. 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) [address] [place] [address] Mean corpuscular hemoglobin (MCH) determinationOrdered By: Maria Ines Ceja on 12-04-2024 MCH (RBC) [Entitic mass] 38.7 pg High 27.0-32.0 [facility] Mean corpuscular hemoglobin concentration (MCHC) determinationOrdered By: Maria Ines Ceja on 12-04-2024 MCHC (RBC) [Mass/Vol] 36.2 g/dL High 32-36 [facility] Mean platelet volume determi nationOrdered By: Maria Ines Ceja on 12-04-2024 Platelet mean volume (Bld) [Entitic vol] 12.9 fL High 6.2-12.0 [facility] Monocyte percentageOrdered B y: Maria Ines Ceja on 12-04-2024 Monocytes/100 WBC (Bld) 5.7 % 0-10 [facility] Mycobacterium spon Mycobacterium sp identified Org specific cx Nom (Unsp spec) Test: AFB Culture/Smear Specimen Source: Ascites Fluid Specimen Type: Fluid Specimen Date: 12/04/20242324 Result Date: 12/24/20241212 Result Status: Preliminary result Resulting Lab: [facility] [address] [place] [address] CULTURE Culture in progress and will be examined weekly. A result will be issued either when positive or after 8 weeks incubation. STAIN No acid fast bacilli seen [facility] Comment on above: Performed By: #### 2 4339-4 #### ANA M Soler ([id number]) [facility] ([facility]) [address] [place] [address] Neutrophil percentageOrdered By: Maria Ines Ceja on 12-04-2024 Neutrophils/100 WBC (Bld) 86.2 % High 47-70 [facility] No Panel Informationon 12-04 Interpretation and review of laboratory results Normal [facility] Interpretation and review of laboratory results Abnormal [facility] Nucleated red blood cell per centageOrdered By: Maria Ines Ceja on 12-04-2024 Nucleated RBC/100 WBC (Bld) [Ratio] 0 % 0-5 [facility] Observationon 12-04-2024 Osmolality (U) [Osmolality] 705 mosm/kg Normal 200-[address] [facility] Comment on above: Performed By: #### 1 6362-6 #### ANA M Soler ([id number]) [facility] ([facility]) [address] [place] [address] Osmolality [Osmolality] 273 mosm/kg Low 280-[address] [facility] Comment on above: Performed By: #### 1 6362-6 #### ANA M Soler ([id number]) [facility] ([facility]) [address] [place], [place] [address] PT Coag (PPP) [Time]on 12-04 INR Coag (PPP) [Relative time] 1.7 {INR} High 0.9 - 1.1 [facility] Interpretation and review of laboratory results Abnormal [facility] INR Coag (PPP) [Relative time] 1.7 High 0.9-1.[address] [facility] Comment on above: Performed By: #### 5 902-2 #### ANA M Soler ([id number]) [facility] ([facility]) [address] [place] [address] Platelet countOrdered By: Kahlil Ceja on 12-04-2024 Platelets (Bld) [#/Vol] 101 10*3/uL Low 150-450 [facility] Potassium measurement (mass/ volume)Ordered By: Maria Ines Ceja on 12-04-2024 Potassium (Unsp spec) [Mass/Vol] 3.2 mmol/L Low 3.3-5.1 [facility] Proteinon 12-04-2024 Protein (Body fld) [Mass/Vol] 2.0 g/dL Normal Not established [facility] Comment on above: Order Comment: Third to runThe performance characteristics of this test have been validated on peritoneal/ascites,pleural, pericardial, drain, and liver/pancreatic cyst fluid by the [facility] laboratory. This test has not been approved by the FDA; however, such approval is not necessary. Performed By: #### 1 6362-6 #### ANA M KAILYN Soler ([id number]) [facility] ([facility]) [address] [place] [address] Prothrombin Time w/INRon INR Coag (PPP) [Relative time] 1.2 {INR} Normal [facility] Comment on above: Performed By: #### L 500.4050, L501.2450, L100.0100 #### [facility] [address] [place], [address] PT Coag (PPP) [Time] 15.7 s High 11.7-14.9 [facility] Comment on above: Performed By: #### L 500.4050, L501.2450, L100.0100 #### [facility] [address] [place], [address] Prothrombin timeOrdered By: Maria Ines Ceja on 12-04-2024 PT Coag (PPP) [Time] 15.7 s High 11.7-14.9 [facility] Protime-INRon 12-04-2024 PT Coag (PPP) [Time] 18.7 s High [facility] RBC Auto (Bld) [#/Vol]Ordere d By: Maria Ines Ceja on 12-04-2024 RBC (Bld) [#/Vol] 3.36 10*6/uL Low 4.6-6.2 [facility] Serum creatinine measurement (mass/volume)Ordered By: Maria Ines Ceja on 12-04-2024 Creatinine [Mass/Vol] 0.61 mg/dL Low 0.70-1.20 [facility] Comment on above: Icterus present, Res ults may be affected. Serum globulin measurementOr dered By: Maria Ines Ceja on 12-04-2024 Globulin (S) [Mass/Vol] 2.6 g/dL 2.2-4.2 [facility] Serum glucose measurement (m ass/volume)Ordered By: Maria Ines Ceja on 12-04-2024 Glucose [Mass/Vol] 86 mg/dL 70-99 [facility] Serum hepatitis B virus core antibody detectionOrdered By: Mari aInes Ceja on 12-04-2024 HBV core Ab Ql (S) Negative Negative [facility] Serum hepatitis B virus surf moses antibody detectionOrdered By: Maria Ines Ceja on 12-04-2024 HBV surface Ab Ql (S) REAC [facility] Comment on above: <8.5 mIU/mL: Non-Radha ctive8.5<= x <11.5 mIU/mL: Indeterminate>=11.5 mIU/mL: Reactive Non Reactive: Inconsistent with immunity less than <10 mIU/mL Reactive: Consistent with immunity greater than or equal to 10 mIU/mL Serum or plasma alanine parham otransferase (ALT) measurementOrdered By: Maria Ines Ceja on 12-04-2024 ALT [Catalytic activity/Vol] 72 U/L High <47 [facility] Serum or plasma albumin amy urement (mass/volume)Ordered By: Maria Ines Ceja on 12-04-2024 Albumin [Mass/Vol] 3.6 g/dL 3.5-5.0 [facility] Serum or plasma alkaline alex sphatase measurementOrdered By: Maria Ines Ceja on 12-04-2024 ALP [Catalytic activity/Vol] 227 U/L High 40-129 [facility] Serum or plasma calcium amy urement (mass/volume)Ordered By: Maria Ines Ceja on 12-04-2024 Calcium [Mass/Vol] 8.7 mg/dL 7.6-11.0 [facility] Serum or plasma urea nitroge n measurement (mass/volume)Ordered By: Maria Ines Ceja on 12-04-2024 Urea nitrogen [Mass/Vol] 10 mg/dL 4-19 [facility] Sodium levelOrdered By: Chante Ceja on 12-04-2024 Sodium [Moles/Vol] 129 mmol/L Low 133-145 [facility] Total proteinOrdered By: Caprice Ceja on 12-04-2024 Protein [Mass/Vol] 6.2 g/dL 5.9-8.4 [facility] Triacylglycerol lipaseon Lipase [Catalytic activity/Vol] 70 U/L Normal 9-[address] [facility] Comment on above: Order Comment: Venip [...] #### 3 040-3 #### ANA M Soler ([id number]) [facility] ([facility]) [address] [place] [address] US Abdomen RUQon 12-04-2024 Radiology Study observation (narrative) [facility] Work Phone: US RIGHT UPPER QUADRANTon US RIGHT UPPER QUADRANT Interpreted By: Leena Mcgraw and Bartolomei Aguilar Christopher STUDY: US RIGHT UPPER QUADRANT; 2024 12:07 am INDICATION: Signs/Symptoms:new cholestasis, eval for source of obstruction. COMPARISON: MRI liver 12/04/2024. CT abdomen and pelvis 12/02/2024. ACCESSION NUMBER(S): [id number] ORDERING CLINICIAN: VERO MACHADO TECHNIQUE: Multiple images [...] wall thickness measures 0.3 cm. Per the rewinder Corbett's sign is negative. BILE DUCTS: No [...] Leena Mcgraw 2024 3:24 AM Dictation workstation: [id number] Normal [facility] Urinalysis complete W Reflex Culture panel (U)on 12-04-2024 Appearance (U) Turbid Normal Clear [facility] Comment on above: Order Comment: OVER is reported when the result is greater than the clinically reportable range. Performed By: #### 1 6362-6 #### ANA M Soler ([id number]) [facility] ([facility]) [address] [place] [address]92 Bilirubin (U) [Mass/Vol] OVER (4+) Abnormal NEGATIVE [facility] Comment on above: Order Comment: OVER is reported when the result is greater than the clinically reportable range. Performed By: #### 1 6362-6 #### ANA M Soler ([id number]) [facility] ([facility]) [address] [place] [address]35 Color (U) Dark-Yellow Normal Light-Yellow , Yellow, Dark-Yellow [facility] Comment on above: Order Comment: OVER is reported when the result is greater than the clinically reportable range. Performed By: #### 1 6362-6 #### ANA M Soler ([id number]) [facility] ([facility]) [address] [place] [address] 35593 Glucose Auto test strip (U) [Mass/Vol] Normal Normal Normal [facility] Comment on above: Order Comment: OVER is reported when the result is greater than the clinically reportable range. Performed By: #### 1 6362-6 #### ANA M AVINA L ([id number]) [facility] ([facility]) [address] [place] [address] 38998 Ketones (U) [Mass/Vol] 40 (2+) [facility] above: Order Comment: OVER is reported when the result is greater than the clinically reportable range. Performed By: #### 1 6362-6 #### ANA M Soler ([id number]) [facility] ([facility]) [id number] [place] [address]88 Leukocyte esterase Auto test strip Ql (U) Negative Normal NEGATIVE [facility] Comment on above: Order Comment: OVER is reported when the result is greater than the clinically reportable range. Performed By: #### 1 6362-6 #### ANA M AVINA L ([id number]) [facility] ([facility]) [address] [place] [address] 93464 Mucus Auto (Urine sed) [#/Area] 1+ /LPF Normal Reference range not established. [facility] Comment on above: Performed By: #### 1 6362-6 #### ANA M AVINA L ([id number]) [facility] ([facility]) [id number] [place] [address] 95175 Nitrite Auto test strip Ql (U) Negative Normal NEGATIVE [facility] Comment on above: Order Comment: OVER is reported when the result is greater than the clinically reportable range. Performed By: #### 1 6362-6 #### ANA M AVINA L ([id number]) [facility] ([facility]) [address] [place] [address] 92228 pH (U) 6.0 [pH] Normal 5.0, 5.5, 6.0, 6.5, 7.0, 7.5, 8.[address] [facility] Comment on above: Order Comment: OVER is reported when the result is greater than the clinically reportable range. Performed By: #### 1 6362-6 #### ANA M AVINA L ([id number]) [facility] ([facility]) [address] [place] [address] 25016 Protein (U) [Mass/Vol] 20 (TRACE) Normal NEGAT SÁNCHEZ, 10 (TRACE), 20 (TRACE) [facility] Comment on above: Order Comment: OVER is reported when the result is greater than the clinically reportable range. Performed By: #### 1 6362-6 #### ANA M BROWNTZER L ([id number]) [facility] ([facility]) [address] [place] [address] RBC (U) [#/Vol] Negative Normal NEGATIVE [facility] Comment on above: Order Comment: OVER is reported when the result is greater than the clinically reportable range. Performed By: #### 1 6362-6 #### ANA M SCHULTZMOTZER L ([id number]) [facility] ([facility]) [address] [place] [address] RBC Auto (Urine sed) [#/Area] NONE Normal NONE, 1-2, 3-[address] [facility] Comment on above: Performed By: #### 1 6362-6 #### ANA M AVINA L ([id number]) [facility] ([facility]) [id number] [place] [address] 93089 Specific gravity (U) [Rel density] 1.029 Normal 1.005-1.[address] [facility] Comment on above: Order Comment: OVER is reported when the result is greater than the clinically reportable range. Performed By: #### 1 6362-6 #### ANA M Soler ([id number]) [facility] ([facility]) [address] [place] [address] 44262 Urobilinogen (U) [Mass/Vol] 4 (2+) Abnormal Normal [facility] Comment on above: Order Comment: OVER is reported when the result is greater than the clinically reportable range. Result Comment: Some pigments and medications may cause a false positive urobilinogen. Performed By: #### 1 6362-6 #### ANA M SCHULTZMOTZER L ([id number]) [facility] ([facility]) [address] [place] [address] WBC Auto (Urine sed) [#/Area] 1-5 Normal 1-5, NONE [facility] Comment on above: Performed By: #### 1 6362-6 #### ANA M SCHULTZMOTZER L ([id number]) [facility] ([facility]) [id number] [place] [address] 47132 White blood cell (WBC) count Ordered By: Maria Ines Ceja on 12-04-2024 WBC (Bld) [#/Vol] 15.6 10*3/uL High 4.4-11.0 [facility] aPTTon 12-04-2024 aPTT Coag (PPP) [Time] 27 s [facility] aPTT Coag (PPP) [Time]on Interpretation and review of laboratory results [facility] Absolute lymphocyte countOrd ered By: Taj Nieves on 12-02-2024 Lymphocytes Auto (Unsp spec) [#/Vol] 1.63 10*3/uL 0.83-4.51 [facility] Absolute neutrophil countOrd ered By: Taj Nieves on 12-02-2024 Neutrophils (Bld) [#/Vol] 13.2 10*3/uL High 2.0-7.7 [facility] Anion gap in Serum or Plasma Ordered By: Taj Nieves on 12-02-2024 Anion gap [Moles/Vol] 18 mmol/L High 5-15 [facility] Automated lymphocyte count a s percentage of total leukocytesOrdered By: Taj Nieves on 12-02-2024 Lymphocytes/100 WBC Auto (Unsp spec) 10.1 % Low 19-41 [facility] BUN/creatinine ratioOrdered By: Taj Nieves on 12-02-2024 Urea nitrogen/Creatinine [Mass ratio] 17.3 mg/mg 10-20 [facility] Basophil percentageOrdered B y: Taj Nieves on 12-02-2024 Basophils/100 WBC (Bld) 0.2 % 0-1 [facility] Bilirubin, totalOrdered By: Taj Nieves on 12-02-2024 Bilirubin [Mass/Vol] 9.42 mg/dL High 0.00-1.30 [facility] CBC W/Diff, Automatedon 11-14 Absolute Lymph 1.63 X10 3/uL Normal 0.83-4.51 [facility] Comment on above: Performed By: #### L 500.4050, L501.2450, L100.0100 #### [facility] Laboratory [facility] [place] [address], [address] Absolute Neut 13.2 X10 3/uL High 2.0-7.7 [facility] Comment on above: Performed By: #### L 500.4050, L501.2450, L100.0100 #### [facility] [address] [place], [address] Basophils/100 WBC (Bld) 0.2 % Normal 0-1 [facility] Comment on above: Performed By: #### L 500.4050, L501.2450, L100.0100 #### [facility] [address] [place], [address] Eosinophils/100 WBC (Bld) 0.1 % Normal 0-5 [facility] Comment on above: Performed By: #### L 500.4050, L501.2450, L100.0100 #### [facility] [address] [place], [address] Erythrocyte distribution width (RBC) [Ratio] 15.9 % High 11.6-14.6 [facility] Comment on above: Performed By: #### L 500.4050, L501.2450, L100.0100 #### [facility] [address] [place], [address] Hematocrit (Bld) [Volume fraction] 36.8 % Low 40-54 [facility] Comment on above: Performed By: #### L 500.4050, L501.2450, L100.0100 #### [facility] [address] [place], [address] Hemoglobin (Bld) [Mass/Vol] 13.2 g/dL Normal 13.0-16.5 [facility] Comment on above: Performed By: #### L 500.4050, L501.2450, L100.0100 #### [facility] [address] [place], [address] IG% 0.400 Normal 0.0-0.9 [facility] Comment on above: Result Comment: IG% - Immature Granulocytes (promyelocytes, myelocytes and metamyelocytes) > 1% indicates that a LEFT SHIFT is Present. Performed By: #### L 500.4050, L501.2450, L100.0100 #### [facility] [address] [place], [address] Lymphocytes/100 WBC (Bld) 10.1 % Low 19-41 [facility] Comment on above: Performed By: #### L 500.4050, L501.2450, L100.0100 #### [facility] [address] [place], [address] MCH (RBC) [Entitic mass] 37.7 pg High 27.0-32.0 [facility] Comment on above: Performed By: #### L 500.4050, L501.2450, L100.0100 #### [facility] [address] [place], [address] MCHC (RBC) [Mass/Vol] 35.9 g/dL Normal 32-36 [facility] Comment on above: Performed By: #### L 500.4050, L501.2450, L100.0100 #### [facility] [address] [place], [address] MCV (RBC) [Entitic vol] 105.1 fL High 80-94 [facility] Comment on above: Performed By: #### L 500.4050, L501.2450, L100.0100 #### [facility] [address] [place], [address] Monocytes/100 WBC (Bld) 7.4 % Normal 0-10 [facility] Comment on above: Performed By: #### L 500.4050, L501.2450, L100.0100 #### [facility] [address] [place], [address] Neutrophils/100 WBC (Bld) 81.8 % High 47-70 [facility] Comment on above: Performed By: #### L 500.4050, L501.2450, L100.0100 #### [facility] [address] [place], [address] Nucleated RBC (Bld) [#/Vol] 0 10*3/uL Normal 0-5 [facility] Comment on above: Performed By: #### L 500.4050, L501.2450, L100.0100 #### [facility] [address] [place], [address] Platelet mean volume (Bld) [Entitic vol] 12.2 fL High 6.2-12.0 [facility] Comment on above: Performed By: #### L 500.4050, L501.2450, L100.0100 #### [facility] [address] [place], [address] Platelets (Bld) [#/Vol] 115 10*3/uL Low 150-450 [facility] Comment on above: Performed By: #### L 500.4050, L501.2450, L100.0100 #### [facility] [address] [place], [address] RBC (Bld) [#/Vol] 3.50 10*6/uL Low 4.6-6.2 [facility] Comment on above: Performed By: #### L 500.4050, L501.2450, L100.0100 #### [facility] [address] [place], [address] RDW SD 61.8 fl High 35.1-43.9 [facility] Comment on above: Performed By: #### L 500.4050, L501.2450, L100.0100 #### [facility] [address] [place], [address] WBC (Bld) [#/Vol] 16.2 10*3/uL High 4.4-11.0 [facility] Comment on above: Performed By: #### L 500.4050, L501.2450, L100.0100 #### [facility] [address] [place], [address] CT Chest, Abd, Pel w/Contras ton 12-02-2024 CT Chest, Abd, Pel w/Contrast [facility] Imaging Services [address] [place], [place] [address] CT Chest, Abd, Pel w/Contrast MR#: [id number] Acct: [id number] Name: JOSE PARKER Rep #: [id number] : 1980 M 43 From: Aleks Thomason MD PCP: RAJESH Redd Status: [facility] Study: CT Chest, Abd, Pel w/Contrast Date of Exam: Exam# [id number] Ordering Dr: Taj Nieves MD PROCEDURE: CT [...] characterization. *No additional acute abnormalities. Reading Location: [facility] CC: RAJESH Patrick; Dr. Taj Nieves MD Weather Forecaster: Signed Normal [facility] Carbon dioxide, total [Moles /volume] in Central venous bloodOrdered By: Taj Nieves on 12-02-2024 CO2 [Moles/Vol] 22.1 mmol/L 21.0-32.0 [facility] Chloride assayOrdered By: Kahlil Nieves on 12-02-2024 Chloride [Moles/Vol] 93 mmol/L Low 98-108 [facility] Comprehensive Metabolic Prof ilon 12-02-2024 Albumin [Mass/Vol] 3.9 g/dL Normal 3.5-5.0 [facility] Comment on above: Performed By: #### L 500.4050, L501.2450, L100.0100 #### [facility] [address] [place], [address] Albumin/Globulin [Mass ratio] 1.4 {ratio} Normal 0.9-2.4 [facility] Comment on above: Performed By: #### L 500.4050, L501.2450, L100.0100 #### [facility] [address] [place], [address] ALK PHOS 262 U/L High 40-129 [facility] Comment on above: Performed By: #### L 500.4050, L501.2450, L100.0100 #### [facility] [address] [place], [address] ALT [Catalytic activity/Vol] 79 U/L High <=46 [facility] Comment on above: Performed By: #### L 500.4050, L501.2450, L100.0100 #### [facility] [address] [place], [address] AST [Catalytic activity/Vol] 265 U/L High <=37 [facility] Comment on above: Performed By: #### L 500.4050, L501.2450, L100.0100 #### [facility] [address] [place], [address] Bilirubin [Mass/Vol] 9.42 mg/dL High 0.00-1.30 [facility] Comment on above: Performed By: #### L 500.4050, L501.2450, L100.0100 #### [facility] [address] [place], [address] BUN/CRE 17.3 RATIO Normal 10-20 [facility] Comment on above: Performed By: #### L 500.4050, L501.2450, L100.0100 #### [facility] [address] [place], [address] Calcium [Mass/Vol] 9.3 mg/dL Normal 7.6-11.0 [facility] Comment on above: Performed By: #### L 500.4050, L501.2450, L100.0100 #### [facility] [address] [place], [address] Chloride [Moles/Vol] 93 mmol/L Low 98-108 [facility] Comment on above: Performed By: #### L 500.4050, L501.2450, L100.0100 #### [facility] [address] [place], [address] CO2 [Moles/Vol] 22.1 mmol/L Normal 21.0-32.0 [facility] Comment on above: Performed By: #### L 500.4050, L501.2450, L100.0100 #### [facility] [address] [place], [address] Creatinine [Mass/Vol] 0.59 mg/dL Low 0.70-1.20 [facility] Comment on above: Result Comment: Icte lilia present, Results may be affected. Performed By: #### L 500.4050, L501.2450, L100.0100 #### [facility] [address] [place], [address] ECRCL 156.19 ml/min Normal 50-250 [facility] Comment on above: Performed By: #### L 500.4050, L501.2450, L100.0100 #### [facility] [address] [place], [address] GAP 18 High 5-15 [facility] Comment on above: Performed By: #### L 500.4050, L501.2450, L100.0100 #### [facility] [address] [place], [address] GFR/1.73 sq M.predicted among non-blacks MDRD (S/P/Bld) [Vol rate/Area] 124 mL/min/{1.73_m2} Normal >60 [facility] Comment on above: Result Comment: mL/m in/1.73m2 CKD-EPI Creatinine Equation (2020) Performed By: #### L 500.4050, L501.2450, L100.0100 #### [facility] [address] [place], [address] Globulin (S) [Mass/Vol] 2.8 g/dL Normal 2.2-4.2 [facility] Comment on above: Performed By: #### L 500.4050, L501.2450, L100.0100 #### [facility] [address] [place], [address] Glucose [Mass/Vol] 120 mg/dL High 70-99 [facility] Comment on above: Performed By: #### L 500.4050, L501.2450, L100.0100 #### [facility] [address] [place], [address] Potassium [Moles/Vol] 3.8 mmol/L Normal 3.3-5.1 [facility] Comment on above: Performed By: #### L 500.4050, L501.2450, L100.0100 #### [facility] [address] [place], [address] Sodium [Moles/Vol] 133 mmol/L Normal 133-145 [facility] Comment on above: Performed By: #### L 500.4050, L501.2450, L100.0100 #### [facility] [address] [place], [address] T PROT 6.7 g/dL Normal 5.9-8.4 [facility] Comment on above: Performed By: #### L 500.4050, L501.2450, L100.0100 #### [facility] [address] [place], [address] Urea nitrogen [Mass/Vol] 10 mg/dL Normal 4-19 [facility] Comment on above: Performed By: #### L 500.4050, L501.2450, L100.0100 #### [facility] [address] [place], [address] Emergency Department Summary on 12-02-2024 Emergency Department Summary [facility] Medical Records Department [address] [place] [address] Emergency Department Summary 12/02/24 MR#: [id number] Acct: [id number] Name: JOSE PARKER Rep #: [id number] : 1980 43 From: Taj Nieves MD [...] history of fatty liver. Prior evaluation in [place] and was told he did not have [...] for a (more content not included)... Normal [facility] Eosinophil percentageOrdered By: Taj Nieves on 12-02-2024 Eosinophils/100 WBC (Bld) 0.1 % 0-5 [facility] Erythrocyte distribution wid th ratioOrdered By: Taj Nieves on 12-02-2024 Erythrocyte distribution width (RBC) [Ratio] 15.9 % High 11.6-14.6 [facility] Erythrocyte distribution wid th standard deviationOrdered By: Taj Nieves on 12-02-2024 Erythrocyte distribution width (RBC) [Ratio] 61.8 fl High 35.1-43.9 [facility] Glomerular filtration rate ( GFR) estimation/1.73 sq m using serum, plasma, or whole bOrdered By: Taj Nieves on 12-02-2024 GFR/1.73 sq M.predicted among non-blacks MDRD (S/P/Bld) [Vol rate/Area] 124 mL/min/{1.73_m2} >60 [facility] Comment on above: mL/min/1.73m2 CKD-EP I Creatinine Equation (2020) Hematocrit Auto (Bld) [Volum e fraction]Ordered By: Taj Nieves on 12-02-2024 Hematocrit (Bld) [Volume fraction] 36.8 % Low 40-54 [facility] Hemoglobin measurementOrdere d By: Taj Nieves on 12-02-2024 Hemoglobin (Bld) [Mass/Vol] 13.2 g/dL 13.0-16.5 [facility] Immature granulocytes/100 WB C Auto (Bld)Ordered By: Taj Nieves on 12-02-2024 Immature granulocytes/100 WBC (Bld) 0.400 % 0.0-0.9 [facility] Comment on above: IG% - Immature Granu locytes (promyelocytes, myelocytes and metamyelocytes) > 1% indicates that a LEFT SHIFT is Present. Laboratory - Chemistry and C hemistry - challengeOrdered By: Taj Nieves on 12-02-2024 AST [Catalytic activity/Vol] 265 U/L High <38 [facility] Lipaseon 12-02-2024 Lipase [Catalytic activity/Vol] 115 U/L High 13-75 [facility] Comment on above: Result Comment: Christa zarate note: LIPASE revised reference range effective 22. New Lipase methodology. Expected to produce lower values than the previous assay method. NEW Reference Range: 13 - 75 U/L Performed By: #### L 500.4050, L501.2450, L100.0100 #### [facility] [address] [place], [address] Lipase measurementOrdered By : Taj Nieves on 12-02-2024 Lipase [Catalytic activity/Vol] 115 U/L High 13-75 [facility] Comment on above: Please note:LIPASE r evised reference range effective 22. New Lipase methodology. Expected to produce lower values than the previous assay method. NEW Reference Range: 13 - 75 U/L MCV (mean corpuscular volume ) determinationOrdered By: Taj Nieves on 12-02-2024 MCV (RBC) [Entitic vol] 105.1 fL High 80-94 [facility] Mean corpuscular hemoglobin (MCH) determinationOrdered By: Taj Nieves on 12-02-2024 MCH (RBC) [Entitic mass] 37.7 pg High 27.0-32.0 [facility] Mean corpuscular hemoglobin concentration (MCHC) determinationOrdered By: Taj Nieves on 12-02-2024 MCHC (RBC) [Mass/Vol] 35.9 g/dL 32-36 [facility] Mean platelet volume determi nationOrdered By: Taj Nieves on 12-02-2024 Platelet mean volume (Bld) [Entitic vol] 12.2 fL High 6.2-12.0 [facility] Monocyte percentageOrdered B y: Taj Nieves on 12-02-2024 Monocytes/100 WBC (Bld) 7.4 % 0-10 [facility] Neutrophil percentageOrdered By: Taj Nieves on 12-02-2024 Neutrophils/100 WBC (Bld) 81.8 % High 47-70 [facility] [facility] Nucleated red blood cell per centageOrdered By: Taj Nieves on 12-02-2024 Nucleated RBC/100 WBC (Bld) [Ratio] 0 % 0-5 [facility] Platelet countOrdered By: Kahlil Nieves on 12-02-2024 Platelets (Bld) [#/Vol] 115 10*3/uL Low 150-450 [facility] Potassium measurement (mass/ volume)Ordered By: Taj Nieves on 12-02-2024 Potassium (Unsp spec) [Mass/Vol] 3.8 mmol/L 3.3-5.1 [facility] RBC Auto (Bld) [#/Vol]Ordere d By: Taj Nieves on 12-02-2024 RBC (Bld) [#/Vol] 3.50 10*6/uL Low 4.6-6.2 [facility] Serum creatinine measurement (mass/volume)Ordered By: Taj Nieves on 12-02-2024 Creatinine [Mass/Vol] 0.59 mg/dL Low 0.70-1.20 [facility] Comment on above: Icterus present, Res ults may be affected. Serum globulin measurementOr dered By: Taj Nieves on 12-02-2024 Globulin (S) [Mass/Vol] 2.8 g/dL 2.2-4.2 [facility] Serum glucose measurement (m ass/volume)Ordered By: Taj Nieves on 12-02-2024 Glucose [Mass/Vol] 120 mg/dL High 70-99 [facility] Serum or plasma alanine parham otransferase (ALT) measurementOrdered By: Taj Nieves on 12-02-2024 ALT [Catalytic activity/Vol] 79 U/L High <47 [facility] Serum or plasma albumin aym urement (mass/volume)Ordered By: Taj Nieves on 12-02-2024 Albumin [Mass/Vol] 3.9 g/dL 3.5-5.0 [facility] Serum or plasma albumin/glob ulin mass ratioOrdered By: Taj Nieves on 12-02-2024 Albumin/Globulin [Mass ratio] 1.4 {ratio} 0.9-2.4 [facility] Serum or plasma alkaline alex sphatase measurementOrdered By: Taj Nieves on 12-02-2024 ALP [Catalytic activity/Vol] 262 U/L High 40-129 [facility] Serum or plasma calcium amy urement (mass/volume)Ordered By: Taj Nieves on 12-02-2024 Calcium [Mass/Vol] 9.3 mg/dL 7.6-11.0 [facility] Serum or plasma urea nitroge n measurement (mass/volume)Ordered By: Taj Nieves on 12-02-2024 Urea nitrogen [Mass/Vol] 10 mg/dL 4-19 [facility] Sodium levelOrdered By: Taj Nieves on 12-02-2024 Sodium [Moles/Vol] 133 mmol/L 133-145 [facility] Total proteinOrdered By: Tanner Nieves on 12-02-2024 Protein [Mass/Vol] 6.7 g/dL 5.9-8.4 [facility] White blood cell (WBC) count Ordered By: Taj Nieves on 12-02-2024 WBC (Bld) [#/Vol] 16.2 10*3/uL High 4.4-11.0 [facility] Urgent Care Visit Reporton 0 09-04-2024 Urgent Care Visit Report [facility] [address], [address] [place] [address] OFFICE VISIT Date of Service: 09/04/24 MR#: [id number] Acct: [id number] Name: JOSE PARKER Rep #: [id number] : 1980 Provider: YUAN Acuña Age/Sex: 43/M Location: [facility] Status: Signed Intake Vital Signs 03/05/15 18:31 [...] Yes Coding Level of Care Code Attention Orthotic Aide Diagnoses Physical exam, pre-employment Z02.1 Assessment and Plan Assessment and Plan (1) Physical exam, pre-employment: Status: Acute 09/04/24 08 Date Sameer Szymanski Signature: Date (if applicable) CC: Normal [facility] CBC panel Auto (Bld)on 02-14 Erythrocyte distribution width (RBC) [Ratio] 12.6 % 11.5 - 15.0 % [facility] Hematocrit (Bld) [Volume fraction] 42.9 % 39.0 - 51.0 % [facility] Hemoglobin (Bld) [Mass/Vol] 14.2 g/dL 13.0 - 17.0 g/dL [facility] MCH (RBC) [Entitic mass] 36.4 pg High 26.0 - 34.0 pg [facility] MCHC (RBC) [Mass/Vol] 33.1 g/dL 30.5 - 36.0 g/dL [facility] MCV (RBC) [Entitic vol] 110.0 fL High 80.0 - 100.0 fL [facility] Nucleated RBC (Bld) [#/Vol] <0.01 k/uL [facility] Platelet mean volume (Bld) [Entitic vol] 11.8 fL 9.0 - 12.7 fL [facility] Platelets (Bld) [#/Vol] 156 10*3/uL 150 - 400 k/uL [facility] RBC (Bld) [#/Vol] 3.90 10*6/uL Low 4.20 - 6.0 0 m/uL [facility] WBC (Bld) [#/Vol] 11.42 10*3/uL High 3.70 - 11 .00 k/uL [facility] Comprehensive metabolic 2000 panelon 02-14-2022 Albumin [Mass/Vol] 4.2 g/dL 3.9 - 4.9 g/dL [facility] ALP [Catalytic activity/Vol] 194 U/L High 38 - 113 U/L [facility] ALT [Catalytic activity/Vol] 32 U/L 10 - 54 U/L [facility] Anion gap [Moles/Vol] 12 mmol/L 9 - 18 mmol/L [facility] AST [Catalytic activity/Vol] 75 U/L High 14 - 40 U/L [facility] Bilirubin [Mass/Vol] 1.2 mg/dL 0.2 - 1 .3 mg/dL [facility] Calcium [Mass/Vol] 9.3 mg/dL 8.5 - 10. 2 mg/dL [facility] Chloride [Moles/Vol] 104 mmol/L 97 - 10 5 mmol/L [facility] CO2 [Moles/Vol] 22 mmol/L 22 - 30 mmol/L [facility] Creatinine [Mass/Vol] 0.65 mg/dL Low 0.73 - 1.22 mg/dL [facility] Estimated Glomerular Filtration Rate 121 mL/min/1.73m >=60 mL/min/1.73m [facility] Glucose [Mass/Vol] 91 mg/dL 74 - 99 mg/dL [facility] Potassium [Moles/Vol] 4.5 mmol/L 3.7 - 5.1 mmol/L [facility] Protein [Mass/Vol] 7.0 g/dL 6.3 - 8.0 g/dL [facility] Sodium [Moles/Vol] 138 mmol/L 136 - 144 mmol/L [facility] Urea nitrogen [Mass/Vol] 9 mg/dL 9 - 24 mg/dL [facility] US ABD LIVER VASCULARon 11-0 [facility] US DOPPLER COMPLETEon 2021 [facility] VIBRATION CONTROLLED TRANSIE NT ELASTOGRAPHY (POC)on 02-14-2022 [facility] VITAMIN B12 BLOODon 02-15-20 Cobalamin (Vitamin B12) [Mass/Vol] 508 pg/mL 232 - 1,245 pg/mL [facility] VITAMIN D 25 HYDROXYon 02-14 25-hydroxyvitamin D3 [Mass/Vol] 9.7 ng/mL Low 31.0 - 80.0 ng/mL [facility] No Panel Informationon 01-04 [facility] AMYLASE BLDon 01-03-2022 Amylase [Catalytic activity/Vol] 22 U/L Low 30 - 104 U/L [facility] C-PEPTIDE BLDon 01-03-2022 C peptide [Mass/Vol] 0.90 ng/mL 0.81 - 3.85 ng/mL [facility] C-REACTIVE PROTEIN (CRP)on 0 01-03-2022 CRP [Mass/Vol] 1.1 mg/dL High <0.9 mg/dL [facility] CBC W Auto Differential pane l (Bld)on 01-03-2022 Abs Immature Gran 0.04 k/uL <0.10 k/uL [facility] Basophils (Bld) [#/Vol] 0.04 10*3/uL <0.11 k/uL [facility] Basophils/100 WBC (Bld) 0.3 % [facility] CBC W Differential panel, method unspecified (Bld) Done [facility] Differential cell count method Nom (Bld) Auto [facility] Eosinophils (Bld) [#/Vol] 0.10 10*3/uL <0.46 k/uL [facility] Eosinophils/100 WBC (Bld) 0.7 % [facility] Erythrocyte distribution width (RBC) [Ratio] 14.1 % 11.5 - 15.0 % [facility] Hematocrit (Bld) [Volume fraction] 42.9 % 39.0 - 51.0 % [facility] Hemoglobin (Bld) [Mass/Vol] 14.8 g/dL 13.0 - 17.0 g/dL [facility] Immature Gran % 0.3 % [facility] Lymphocytes (Bld) [#/Vol] 2.07 10*3/uL 1.00 - 4.00 k/uL [facility] Lymphocytes/100 WBC (Bld) 14.6 % [facility] MCH (RBC) [Entitic mass] 38.8 pg High 26.0 - 34.0 pg [facility] MCHC (RBC) [Mass/Vol] 34.5 g/dL 30.5 - 36.0 g/dL [facility] MCV (RBC) [Entitic vol] 112.6 fL High 80.0 - 100.0 fL [facility] Monocytes (Bld) [#/Vol] 1.28 10*3/uL High <0.87 k/uL [facility] Monocytes/100 WBC (Bld) 9.0 % [facility] Neutrophils (Bld) [#/Vol] 10.68 10*3/uL High 1.45 - 7.50 k/uL [facility] Neutrophils/100 WBC (Bld) 75.1 % [facility] Nucleated RBC (Bld) [#/Vol] <0.01 k/uL [facility] Nucleated RBC/100 WBC (Bld) [Ratio] 0.0 /100 WBC [facility] Platelet Estimate Decreased [facility] Platelet mean volume (Bld) [Entitic vol] 12.9 fL High 9.0 - 12.7 fL [facility] Platelets (Bld) [#/Vol] 134 10*3/uL Low 150 - 400 k/uL [facility] Polychromasia LM Ql (Bld) Slight [facility] RBC (Bld) [#/Vol] 3.81 10*6/uL Low 4.20 - 6.0 0 m/uL [facility] Red Cell Morph Reviewed: unremarkable [facility] WBC (Bld) [#/Vol] 14.21 10*3/uL High 3.70 - 11 .00 k/uL [facility] Comprehensive metabolic 2000 panelon 01-03-2022 Albumin [Mass/Vol] 3.7 g/dL Low 3.9 - 4.9 g/dL [facility] ALP [Catalytic activity/Vol] 291 U/L High 38 - 113 U/L [facility] ALT [Catalytic activity/Vol] 40 U/L 10 - 54 U/L [facility] Anion gap [Moles/Vol] 12 mmol/L 9 - 18 mmol/L [facility] AST [Catalytic activity/Vol] 123 U/L High 14 - 40 U/L [facility] Bilirubin [Mass/Vol] 1.2 mg/dL 0.2 - 1 .3 mg/dL [facility] Calcium [Mass/Vol] 9.2 mg/dL 8.5 - 10. 2 mg/dL [facility] Chloride [Moles/Vol] 101 mmol/L 97 - 10 5 mmol/L [facility] CO2 [Moles/Vol] 25 mmol/L 22 - 30 mmol/L [facility] Creatinine [Mass/Vol] 0.63 mg/dL Low 0.73 - 1.22 mg/dL [facility] Estimated Glomerular Filtration Rate 123 mL/min/1.73m >=60 mL/min/1.73m [facility] Glucose [Mass/Vol] 82 mg/dL 74 - 99 mg/dL [facility] Potassium [Moles/Vol] 3.9 mmol/L 3.7 - 5.1 mmol/L [facility] Protein [Mass/Vol] 6.9 g/dL 6.3 - 8.0 g/dL [facility] Sodium [Moles/Vol] 138 mmol/L 136 - 144 mmol/L [facility] Urea nitrogen [Mass/Vol] 5 mg/dL Low 9 - 24 mg/dL [facility] ESR Westergren method (Bld) [Velocity]on 01-03-2022 ESR (Bld) [Velocity] 26 mm/h High 0 - 15 mm/hr [facility] FERRITIN [facility] 01-03-2022 Ferritin [Mass/Vol] 2773.0 ng/mL High 30.3 - 5 65.7 ng/mL [facility] Iron and Iron binding capaci ty panelon 01-03-2022 Iron [Mass/Vol] 93 ug/dL 41 - 186 ug/dL [facility] Iron binding capacity [Mass/Vol] 182 ug/dL Low 232 - 386 ug/dL [facility] Iron/TIBC [Molar ratio] 51.1 % 15.0 - 57.0 % [facility] LIPASE [facility] 01-03-2022 Lipase [Catalytic activity/Vol] 49 U/L 16 - 61 U/L [facility] T3 [facility] 01-03-2022 T3 [Mass/Vol] 131 ng/dL 79 - 165 ng/dL [facility] T4 FREE/FREE THYROXon 2021 Free T4 [Mass/Vol] 1.4 ng/dL 0.9 - 1.7 ng/dL [facility] TSH [facility] 01-03-2022 TSH Qn 2.700 m[IU]/L 0.270 - 4.200 mIU/L [facility] Urinalysis complete panel (U )on 01-03-2022 Bilirubin Ql (U) Negative Negative [facility] Clarity (Unsp spec) Cloudy Abnormal Clear [facility] Color (U) Labette Abnormal Yellow [facility] Glucose Test strip (U) [Mass/Vol] Negative Negative [facility] Hemoglobin Ql (U) Negative Negative [facility] Ketones Ql (U) Negative Negative [facility] Leukocyte esterase Test strip Ql (U) Negative Negative [facility] Nitrite Ql (U) Negative Negative [facility] pH (U) 6.0 [pH] 5.0 - 8.0 [facility] Protein (U) [Mass/Vol] 1+ Abnormal Negative [facility] RBC LM.HPF (Urine sed) [#/Area] 0-3 /HPF 0-3 /HPF [facility] Specific gravity (U) [Rel density] 1.024 1.005 - 1.030 [facility] Urobilinogen Ql (U) 1+ Abnormal Negative [facility] WBC LM.HPF (Urine sed) [#/Area] 0-5 /HPF 0-5 /HPF [facility] XR CHEST 2V FRONTAL/LATon [facility] XR Chest PA and Lateralon IMPRESSION: Mild hazy opacity at the left base, atelectasis versus small focus of bronchopneumonia in the appropriate clinical setting. Weather Forecaster: PSCB Transcribe Date/Time: Jan 02 2022 3:44P Dictated by : JONH SONG MD This examination was interpreted and the report reviewed and electronically signed by: JONH SONG MD on Jan 02 2022 3:46PM [facility] * * *Final Report* [...] lateral rib fracture. DIVISION OF RADIOLOGY Provider, [facility] - 01/02/2022 * * *Final Report* * [...] of bronchopneumonia in the appropriate clinical setting. Weather Forecaster: [facility] Transcribe Date/Time: Jan 02 2022 3:44P Dictated by : JONH SONG MD This examination was interpreted and the report reviewed and electronically signed by: JONH SONG MD on Jan 02 2022 3:46PM EST [facility] Radiology Study observation (narrative) [facility] XR Chest PA and LateralOrder ed By: [facility] Provider on 01-02-2022 [facility] XR Shoulder - right 3 Viewso n 11-04-2020 IMPRESSION: Acromioclavicular osteoarthrosis. No acute osseous abnormality identified. Weather Forecaster: PSYCHIATRIC Transcribe Date/Time: Nov 04 2020 9:39A Dictated by : TRES CHURCHILL MD This examination was interpreted and the report reviewed and electronically signed by: TRES CHURCHILL MD on Nov 04 2020 9:40AM [facility] * * *Final Report* [...] fracture or dislocation. DIVISION OF RADIOLOGY Provider, [facility] - 11/04/2020 * * *Final Report* * [...] Acromioclavicular osteoarthrosis. No acute osseous abnormality identified. Weather Forecaster: PSCB Transcribe Date/Time: Nov 04 2020 9:39A Dictated by : TRES CHURCHILL MD This examination was interpreted and the report reviewed and electronically signed by: TRES CHURCHILL MD on Nov 04 2020 9:40AM EST [facility] Radiology Study observation (narrative) [facility] XR Shoulder - right 3 ViewsO rdered By: [facility] Provider on 11-04-2020 [facility] DDI VIBRATION CONTROLLED TRA NSIENT ELASTOGRAPHY (VCTE) [facility] Vital Signs Date Time Vital Sign Value Performing Clinician Facility 12-12-2024 05:08-0400 Body temperature 99 [degF] Vero Machado MD Work Phone: [facility] 12-12-2024 05:08-0400 Diastolic blood pressure 56 mm[Hg] Vero Machado MD Work Phone: [facility] 12-12-2024 05:08-0400 Heart rate 79 /min Vero Machado MD Work Phone: [facility] 12-12-2024 05:08-0400 Respiratory rate 18 /min Vero Machado MD Work Phone: [facility] 12-12-2024 05:08-0400 SaO2% (BldA) [Mass fraction] 92 % Vero Machado MD Work Phone: [facility] 12-12-2024 05:08-0400 Systolic blood pressure 98 mm[Hg] Vero Machado MD Work Phone: [facility] 2024 11:16-0400 Body temperature 37.0 Vero Machado MD Work Phone: [facility] 2024 10:48-0400 Body temperature 37.0 degrees Celsius [facility] Comment on above: Performed By: #### [id number] #### ANA M Soler ([id number]) [facility] ([facility]) [address] [place] [address] 2024 03:21-0400 Body height 172.2 cm Vero Machado MD Work Phone: [facility] 2024 03:21-0400 Body mass index (BMI) [Ratio] 26.62 kg/m2 Vero Machado MD Work Phone: [facility] 2024 03:21-0400 Body weight 78.93 kg Vero Machado MD Work Phone: [facility] 12-04-2024 22:19-0400 Body temperature 37.0 Vero Machado MD Work Phone: [facility] 12-04-2024 22:17-0400 Body temperature 37.0 degrees Celsius [facility] Comment on above: Result Comment: NOTE: Patient Results ar e Not Corrected for Temperature Performed By: #### 2 [id number] #### ANA M Soler ([id number]) [facility] ([facility]) [address] [place] [address] 12-04-2024 12:21-0400 Body mass index (BMI) [Ratio] 25.72 kg/m2 Piedad Ribeiro APRN.CNP Work Phone: [facility] 12-04-2024 12:21-0400 Body temperature 99.81 [degF] Piedad Moomaw CELL ATTENDANT HELPER.PODIATRY DOCTOR Work Phone: [facility] 12-04-2024 12:21-0400 Body weight 79 kg Piedad Moomaw CELL ATTENDANT HELPER.PODIATRY DOCTOR Work Phone: [facility] 12-04-2024 12:21-0400 Diastolic blood pressure 78 mm[Hg] Piedad Moomaw CELL ATTENDANT HELPER.PODIATRY DOCTOR Work Phone: [facility] 12-04-2024 12:21-0400 Heart rate 140 /min Piedad Moomaw CELL ATTENDANT HELPER.PODIATRY DOCTOR Work Phone: [facility] 12-04-2024 12:21-0400 Respiratory rate 21 /min Piedad Moomaw CELL ATTENDANT HELPER.PODIATRY DOCTOR Work Phone: [facility] 12-04-2024 12:21-0400 SaO2% (BldA) [Mass fraction] 94 % Piedad Moomaw CELL ATTENDANT HELPER.PODIATRY DOCTOR Work Phone: [facility] 12-04-2024 12:21-0400 Systolic blood pressure 120 mm[Hg] Piedad Moomaw CELL ATTENDANT HELPER.PODIATRY DOCTOR Work Phone: [facility] 12-04-2024 10:35-0400 Body height 172.[address] Zac Byers MD Work Phone: [facility] 12-04-2024 10:35-0400 Body mass index (BMI) [Ratio] 26.4 kg/m2 Dr. Zac Byers MD Work Phone: [facility] 12-04-2024 10:35-0400 Body weight 78.[address] Zac Byers MD Work Phone: [facility] 12-04-2024 10:35-0400 Diastolic blood pressure 84 mm[Hg] Dr. Zac Byers MD Work Phone: [facility] 12-04-2024 10:35-0400 Heart rate 129 /min Dr. Zac Byers MD Work Phone: [facility] 12-04-2024 10:35-0400 SaO2% (BldA) [Mass fraction] 92 % Dr. Zac Byers MD Work Phone: 5(432)077-036330 [place] [address] 12-04-2024 10:35-0400 Systolic blood pressure 123 mm[Hg] Dr. Zac Byers MD Work Phone: 0(172)004-217930 [place] [address] 12-02-2024 17:09-0400 Body temperature 97.9 [degF] Dr. Zac Byers MD Work Phone: 5(639)620-786730 [place] [address] 12-02-2024 17:09-0400 Diastolic blood pressure 87 mm[Hg] Dr. Zac Byers MD Work Phone: 5(208)672-937430 [place] [address] 12-02-2024 17:09-0400 Heart rate 114 /min Dr. Zac Byers MD Work Phone: 1(897)667-777530 [place] [address] 12-02-2024 17:09-0400 Respiratory rate 16 /min Dr. Zac Byers MD Work Phone: 7(360)697-895330 [place] [address] 12-02-2024 17:09-0400 SaO2% (BldA) [Mass fraction] 989 % Dr. Zac Byers MD Work Phone: 8(363)023-661230 [place] [address] 12-02-2024 17:09-0400 Systolic blood pressure 145 mm[Hg] Dr. Zac Byers MD Work Phone: 9(642)182-956830 [place] [address] 12-02-2024 14:47-0400 Body height 172.[address] Zac Byers MD Work Phone: 5(721)[phone] [place] [address] 12-02-2024 14:47-0400 Body mass index (BMI) [Ratio] 26.6 kg/m2 Dr. Zac Byers MD Work Phone: 1(675)106-637630 [place] [address] 12-02-2024 14:47-0400 Body weight 79.[address] Zac Byers MD Work Phone: 6(051)872-736530 [place] [address] 02-14-2022 12:38-0400 Body height 175.3 cm Noemi Russell MD Work Phone: [facility] 02-14-2022 12:38-0400 Body weight 78.11 kg Noemi Russell MD Work Phone: [facility] 02-14-2022 12:38-0400 Diastolic blood pressure 78 mm[Hg] Noemi Russell MD Work Phone: [facility] 02-14-2022 12:38-0400 Heart rate 108 /min Noemi Russell MD Work Phone: [facility] 02-14-2022 12:38-0400 SaO2% (BldA) [Mass fraction] 100 % Noemi Russell MD Work Phone: [facility] 02-14-2022 12:38-0400 Systolic blood pressure 122 mm[Hg] Noemi Russell MD Work Phone: [facility] 01-09-2022 11:13-0400 Body height 175.3 cm Aleks Najera MD Work Phone: [facility] 01-09-2022 11:13-0400 Body temperature 97.59 [degF] Aleks Najera MD Work Phone: [facility] 01-09-2022 11:13-0400 Body weight 74.75 kg Aleks Najera MD Work Phone: [facility] 01-09-2022 11:13-0400 Diastolic blood pressure 60 mm[Hg] Aleks Najera MD Work Phone: [facility] 01-09-2022 11:13-0400 Heart rate 96 /min Aleks Najera MD Work Phone: [facility] 01-09-2022 11:13-0400 SaO2% (BldA) [Mass fraction] 98 % Aleks Najera MD Work Phone: [facility] 01-09-2022 11:13-0400 Systolic blood pressure 102 mm[Hg] Aleks Najera MD Work Phone: [facility] 01-02-2022 13:51-0400 Body height 176.9 cm Carmita Keron CELL ATTENDANT HELPER.PODIATRY DOCTOR Work Phone: [facility] 01-02-2022 13:51-0400 Body weight 75.39 kg Carmita Keron CELL ATTENDANT HELPER.PODIATRY DOCTOR Work Phone: [facility] 01-02-2022 13:51-0400 Diastolic blood pressure 76 mm[Hg] Carmita Keron CELL ATTENDANT HELPER.PODIATRY DOCTOR Work Phone: [facility] 01-02-2022 13:51-0400 Heart rate 109 /min Carmita Keron CELL ATTENDANT HELPER.PODIATRY DOCTOR Work Phone: [facility] 01-02-2022 13:51-0400 SaO2% (BldA) [Mass fraction] 94 % Carmita Keron CELL ATTENDANT HELPER.PODIATRY DOCTOR Work Phone: [facility] 01-02-2022 13:51-0400 Systolic blood pressure 118 mm[Hg] Carmita Keron CELL ATTENDANT HELPER.PODIATRY DOCTOR Work Phone: [facility] Encounters Encounter Date Encounter Type Care Provider Facility Start: 12-29-2024 Emergency department patient visit Ion Keri Facility:[facility] Start: 12-29-2024 End: 12-29-2024 Patient encounter procedure Maria Ines Ceja MACHINE TOOL DESIGNER-C -[facility] Work Phone: Start: 12-29-2024 End: 12-29-[address] Zac Byers MD Work Phone: -[facility] Start: 2024 ambulatory Carmita reynaga NP Facility:[facility] Start: 12-04-2024 End: 12-12-2024 Evaluation and management of inpatient Vero Machado MD Work Phone: [facility] Start: 12-04-2024 End: 12-04-2024 Emergency department patient visit CELESTINE QUINN [facility] Start: 12-04-2024 End: 12-04-[address] Zac Byers MD Work Phone: [facility] Start: 12-04-2024 End: 12-04-2024 Patient encounter procedure Maria Ines MENA -[facility] Work Phone: Start: 12-04-2024 End: 12-04-2024 ambulatory PIEDAD YORDANW Facility:[facility] Start: 12-04-2024 End: 12-04-2024 Patient encounter procedure Maria Ines MENA -Laboratory Work Phone: Comment on above: Acute bacterial conj unctivitis of both eyes (Primary Dx); Tachycardia; Jaundice Start: 12-04-2024 End: 12-04-2024 Patient encounter procedure Maria Ines MENA -[facility] Work Phone: Start: 12-04-2024 End: 12-04-[address] Zac Byers MD Work Phone: -[facility] Start: 12-04-2024 End: 12-04-2024 ambulatory Carmita Patrick NP Facility:[facility] Start: 12-02-2024 End: 12-02-2024 Emergency department patient visit Dr. Zac Byers MD Work Phone: -Emergency Department Work Phone: Start: 09-04-2024 End: 09-04-2024 Patient encounter procedure Sameer Mars MA -[facility] Work Phone: Start: 09-04-2024 End: 09-04-2024 ambulatory Zac Byers Facility:[facility] Start: 10-08-2023 Telephone encounter Noemi cox MD Work Phone: Gastroenterology Comment on above: Appointment Start: 10-02-2022 Refill Carmita reynaga CELL ATTENDANT HELPERDonnyPODIATRY DOCTOR Work Phone: [address] [place] [address] Comment on above: Refill Request; Refi ll Request Patient Question Start: 03-17-2022 Refill Carmita reynaga CELL ATTENDANT HELPER.PODIATRY DOCTOR Work Phone: [facility] Comment on above: Refill Request Start: 02-27-2022 Telephone encounter Adriana POPE Work Phone: NEUROLOGY Comment on above: Care Coordination ([facility] clinic follow up) Start: 02-17-2022 [...] m caregiver Adriana Jackson POPE Work Phone: [facility] Start: 01-19-2022 End: 01-19-2022 ambulatory Noemi Russell MD Work Phone: Gastroenterology Comment on above: Alcoholic cirrhosis of liver without ascites (HCC) (Primary Dx); Hepatomegaly; Nausea and vomiting, unspecified vomiting type Start: 01-19-2022 End: 01-19-2022 Telemedicine consultation with patient Noemi Russell MD Work Phone: [facility] Start: 01-18-2022 Telephone encounter Sarah Cehek ([facility]) Gastroenterology Comment on above: Appointment Start: 01-09-2022 End: 01-09-2022 Patient encounter procedure Aleks Najera MD Work Phone: Gastroenterology Comment on above: Hypersplenism (Prima ry Dx); Intra-abdominal and pelvic swelling, mass and lump, unspecified site; Abdominal bloating; Generalized abdominal pain; Weight loss; Early satiety; Alcohol abuse; Dark urine; Pulsatile abdomen; Hepatomegaly; Nausea and vomiting, unspecified vomiting type Start: 01-05-2022 Telephone encounter Carmita Quezada okalexus ANNETTE.PODIATRY DOCTOR Work Phone: [facility] Comment on above: Results Start: 01-04-2022 End: 01-04-2022 Subsequent hospital visit by physician [facility] (I-Stat) Work Phone: Cat Scan Comment on above: Intra-abdominal and pelvic swelling, mass and lump, unspecified site [R19.00] Start: 01-03-2022 Telephone encounter Carmita Burnham ANNETTE.PODIATRY DOCTOR Work Phone: [facility] Comment on above: Patient update re: C T scan (Left without having test done ) Start: 01-02-2022 ambulatory [facility] Facil ty:[facility] Start: 01-02-2022 End: 01-02-2022 Subsequent hospital visit by physician [facility] Work Phone: RADIO [facility] Start: 01-02-2022 End: 01-02-2022 Subsequent hospital visit by physician [facility] Matt Work Phone: Radiology Comment on above: Nausea [R11.0] Start: 01-02-2022 End: 01-02-2022 Patient encounter procedure Carmita Patrick CELL ATTENDANT HELPER.PODIATRY DOCTOR Work Phone: [facility] Comment on above: Hepatomegaly (Primar y Dx); Pulsatile abdomen; Nausea; Nausea and vomiting, unspecified vomiting type; Abdominal bloating; Generalized abdominal pain; Epigastric mass; Right upper quadrant abdominal mass; Abdominal mass, LUQ (left upper quadrant); Weight loss; Early satiety; Alcohol abuse; Dark urine Start: 11-04-2020 End: 11-04-2020 Subsequent hospital visit by physician Xr [facility] Work Phone: Radiology Comment on above: Acute [...] and Differential panel - Body fluid Arin Gonsaelz MD Work Phone: Start: 12-10-2024 Cell count [...] Mitochondria Ab [Presence] in Serum by Immunofluorescence Aazlia Zamora MD Work Phone: Start: 2024 Smooth [...] Zac Beckford MD Work Phone: Start: 12-04-2024 Pbeel-9-[id number] measurement Dr. Millie Byers MD Work Phone: [...] HAVtotal antibody results to IgM (e.g., panel #[id number] HAVAntibody w/ Rfx).Performed at: [address] [id number] Director: Stanley Ozuna PhD, Phone: [phone] Start: 12-04-2024 Hepatitis C antibody measurement Dr. [...] HCV Quant by PCR testing - HCVPCR #[id number] Non Reactive: < 0.8 Equivocal: >/= 0.8 [...] abdomen & pelvis w/contrast material Carmita Patrick CELL ATTENDANT HELPER.PODIATRY DOCTOR Work Phone: Start: 01-02-2022 Radiologic exam chest 2 views Carmita Burnham CELL ATTENDANT HELPER.PODIATRY DOCTOR Work Phone: Start: 11-04-2020 Radex shoulder complete minimum 2 views Schuyler Hartman CELL ATTENDANT HELPER.PODIATRY DOCTOR Work Phone: Start: 01-27-2011 Adult depression screening assessment [facility] Work Phone: Plan of Treatment Date Care Activity Detail Author Start: 2030 [facility] Start: 12-13-2027 Diabetes mellitus screening [facility] Start: 02-03-2025 End: 02-03-2025 ambulatory [facility] Start: 12-15-2024 Influenza vaccination [facility] Start: 12-04-2024 Hwplh-5-ixsumlgckle.tumor marker [Units/volume] in Serum or Plasma [facility] Start: 12-04-2024 Basic metabolic 2008 panel with ionized calcium - Serum or Plasma [facility] Start: 12-04-2024 CBC W Auto Differential panel - Blood [facility] Start: 12-04-2024 Gamma glutamyl transferase measurement [facility] Start: 12-04-2024 Hepatic function panel [facility] Start: 12-04-2024 Hepatitis A virus Ab [Presence] in Serum [facility] Start: 12-04-2024 Hepatitis B virus core Ab [Presence] in Serum [facility] Start: 12-04-2024 Hepatitis B virus surface Ab [Presence] in Serum [facility] Start: 12-04-2024 Hepatitis C antibody measurement [facility] Start: 12-04-2024 Prothrombin time [facility] Start: 12-04-2024 [facility] Start: 12-02-2024 [facility] Start: 12-16-2023 Covid-19 Vaccine ( season) Covid-19 Vaccine ( season) [facility] Start: 12-16-2023 Influenza vaccination [facility] Start: 12-16-2023 [facility] Start: 04-16-2023 Behavioral Health Screening Behavioral Health Screening [facility] Start: 12-15-2022 Covid-19 Vaccine ( season) Covid-19 Vaccine ( season) [facility] Start: 12-15-2022 Influenza vaccination INFLUENZA (#1) [facility] Start: 04-16-2022 DEPRESSION ASSESSMENT DEPRESSION ASSESSMENT [facility] Start: 03-14-2022 HEPATITIS A (2 of 3 - Hep A Twinrix risk 3-dose series) HEPATITIS A (2 of 3 - Hep A Twinrix risk 3-dose series) [facility] Start: 03-14-2022 [facility] Start: 02-15-2022 End: 04-17-2022 ETHYL GLUCURONIDE UR SCR ETHYL GLUCURONIDE UR SCR Lab Routine Alcoholic liver disease (HCC) Expected: 02/15/2022, Expires: 04/17/2022 [facility] Work Phone: Comment on above: Expected: 02/15/2022, Expires: 3 Start: 02-15-2022 End: 04-17-2022 PAIN PANEL, UR QUANT PAIN PANEL, UR QUANT Lab Routine Alcoholic liver disease (HCC) Expected: 02/15/2022, Expires: 04/17/2022 [facility] Work Phone: Comment on above: Expected: 02/15/2022, Expires: 3 Start: 02-15-2022 End: 04-17-2022 PHOSPHATIDYLETHANOL (PETH) PHOSPHATIDYLETHANOL (PETH) Lab Routine Alcoholic liver disease (HCC) Expected: 02/15/2022, Expires: 04/17/2022 [facility] Work Phone: Comment on above: Expected: 02/15/2022, Expires: 3 Start: 02-15-2022 End: 04-17-2022 TOX SCREEN ROUT UR TOX SCREEN ROUT UR Lab Routine Alcoholic liver disease (HCC) Expected: 02/15/2022, Expires: 04/17/2022 [facility] Work Phone: Comment on above: Expected: 02/15/2022, Expires: 3 Start: 02-15-2022 End: 04-17-2022 Zinc [Mass/volume] in Serum or Plasma ZINC BLD Lab Routine Alcoholic liver disease (HCC) Expected: 02/15/2022, Expires: 04/17/2022 [facility] Work Phone: Comment on above: Expected: 02/15/2022, Expires: 3 Start: 01-09-2022 End: 03-11-2022 ALPHA 1 ANTITRYP PHEN/GENOTYPE ALPHA 1 ANTITRYP PHEN/GENOTYPE Lab Routine Hepatomegaly Expected: 01/09/2022, Expires: 03/11/2022 [facility] Work Phone: Comment on above: Expected: 01/09/2022, Expires: 2 Start: 01-09-2022 End: 03-11-2022 Spgmf-0-[id number] [Mass/volume] in Serum or Plasma ALPHA FETOPROTEIN BL Lab Routine Dark urine Pulsatile abdomen Hepatomegaly Nausea and vomiting, unspecified vomiting type Expected: 01/09/2022, Expires: 03/11/2022 [facility] Work Phone: Comment on above: Expected: 01/09/2022, Expires: 2 Start: 01-09-2022 End: 03-11-2022 CBC panel - Blood by Automated count CBC Lab Routine Hepatomegaly Expected: 01/09/2022, Expires: 03/11/2022 [facility] Work Phone: Comment on above: Expected: 01/09/2022, Expires: 2 Start: 01-09-2022 End: 03-11-2022 Comprehensive metabolic 2000 panel - Serum or Plasma COMP METABOLIC PANEL Lab Routine Hepatomegaly Expected: 01/09/2022, Expires: 03/11/2022 [facility] Work Phone: Comment on above: Expected: 01/09/2022, Expires: 2 Start: 01-09-2022 End: 03-11-2022 HEPATITIS A ANTIBODY, IGG HEPATITIS A ANTIBODY, IGG Lab Routine Hepatomegaly Expected: 01/09/2022, Expires: 03/11/2022 [facility] Work Phone: Comment on above: Expected: 01/09/2022, Expires: 2 Start: 01-09-2022 End: 03-11-2022 Hepatitis B virus core Ab [Presence] in Serum HEP B CORE AB TOTAL Lab Routine Hepatomegaly Expected: 01/09/2022, Expires: 03/11/2022 [facility] Work Phone: Comment on above: Expected: 01/09/2022, Expires: 2 Start: 01-09-2022 End: 03-11-2022 Hepatitis B virus surface Ab [Presence] in Serum HEP B SURF AB QUAL Lab Routine Hepatomegaly Expected: 01/09/2022, Expires: 03/11/2022 [facility] Work Phone: Comment on above: Expected: 01/09/2022, Expires: 2 Start: 01-09-2022 End: 03-11-2022 Hepatitis B virus surface Ab [Presence] in Serum by Immunoassay HEP B SURF AG SCRN Lab Routine Hepatomegaly Expected: 01/09/2022, Expires: 03/11/2022 [facility] Work Phone: Comment on above: Expected: 01/09/2022, Expires: 2 Start: 01-09-2022 End: 03-11-2022 HFE gene targeted mutation analysis in Blood or Tissue by Molecular genetics method HFE (HEMOCHROMATOSIS) Lab Routine Hepatomegaly Nausea and vomiting, unspecified vomiting type Expected: 01/09/2022, Expires: 03/11/2022 [facility] Work Phone: Comment on above: Expected: 01/09/2022, Expires: 2 Start: 01-09-2022 End: 03-11-2022 Mitochondria Ab [Presence] in Serum by Immunofluorescence MITOCHONDRIAL AB SCR Lab Routine Hepatomegaly Expected: 01/09/2022, Expires: 03/11/2022 [facility] Work Phone: Comment on above: Expected: 01/09/2022, Expires: 2 Start: 01-09-2022 End: 03-11-2022 Nuclear Ab [Presence] in Serum by Immunoassay CHERYL BLOOD Lab Routine Hepatomegaly Expected: 01/09/2022, Expires: 03/11/2022 [facility] Work Phone: Comment on above: Expected: 01/09/2022, Expires: 2 Start: 01-09-2022 End: 03-11-2022 PT panel - Platelet poor plasma by Coagulation assay PROTHROMBIN TIME/PT Lab Routine Dark urine Pulsatile abdomen Hepatomegaly Expected: 01/09/2022, Expires: 03/11/2022 [facility] Work Phone: Comment on above: Expected: 01/09/2022, Expires: 2 Start: 12-15-2021 Influenza vaccination INFLUENZA (#1) [facility] Start: 04-16-2021 DEPRESSION ASSESSMENT DEPRESSION ASSESSMENT [facility] Start: 10-01-2020 COVID-19 VACCINE (2 - Pfizer series) COVID-19 VACCINE (2 - Pfizer series) [facility] Start: 08-27-2020 COVID-19 VACCINE (2 - Pfizer series) COVID-19 VACCINE (2 - Pfizer series) [facility] Start: 07-09-2019 [facility] Start: 07-09-2019 [facility] Start: 12-06-2015 Lipid panel Lipid Screening [facility] Start: 12-06-2015 LIPID SCREEN LIPID SCREEN [facility] Start: 11-05-2015 PNEUMOCOCCAL (2 - PPSV23 if available, else PCV20) PNEUMOCOCCAL (2 - PPSV23 if available, else PCV20) [facility] Start: 11-05-2015 PNEUMOCOCCAL (2 - PPSV23 or PCV20) PNEUMOCOCCAL (2 - PPSV23 or PCV20) [facility] Start: 12-30-2014 PNEUMOCOCCAL (2 - PPSV23 or PCV20) PNEUMOCOCCAL (2 - PPSV23 or PCV20) [facility] Start: 12-30-2014 [facility] Start: 12-30-2014 [facility] Start: 08-13-2012 HEPATITIS B (3 of 3 - 3-dose series) HEPATITIS B (3 of 3 - 3-dose series) [facility] Start: 01-28-2012 Adult depression screening assessment DEPRESSION SCREENING [facility] Start: 12-06-2007 HPV Vaccine (1 - 3-dose SCDM series) HPV Vaccine (1 - 3-dose SCDM series) [facility] Start: 12-06-2007 [facility] Start: 1998 Anxiety Screening Anxiety Screening [facility] Start: 1998 Depression Screening Depression Screening [facility] Start: 1981 HEPATITIS A (1 of 2 - Risk 2-dose series) HEPATITIS A (1 of 2 - Risk 2-dose series) [facility] Start: 1980 HIV screening [facility] Start: 1980 Lipid panel [facility] Start: 1980 [facility] Alanine aminotransfe rase [Enzymatic activity/volume] in Serum or Plasma [facility] Albumin [Mass/volume ] in Serum or Plasma [facility] Alkaline phosphatase [Enzymatic activity/volume] in Serum or Plasma [facility] Anion gap in Serum o r Plasma [facility] Bacteria identified in Blood by Culture [facility] Service Area Work Phone: Bacteria identified in Body fluid by Culture [facility] Work Phone: Bilirubin, total measurement [facility] Bilirubin.direct [Mass/volume] in Serum or Plasma [facility] BUN/Creatinine ratio [facility] Calcium [Mass/volume ] in Serum or Plasma [facility] Carbon dioxide, tota l [Moles/volume] in Central venous blood [facility] CBC W Auto Different ial panel - Blood [facility] Work Phone: [facility] Creatinine [Mass/vol ume] in Serum or Plasma [facility] DDI VIBRATION CONTRO LLED TRANSIENT ELASTOGRAPHY (VCTE) DDI VIBRATION CONTROLLED TRANSIENT ELASTOGRAPHY (VCTE) Procedures Routine Hepatomegaly Ordered: 01/19/2022 [facility] Work Phone: Comment on above: Ordered: 01/19/2022 End: 02-18-2023 Dup-scan artl egno abdl/pel/scrot&/rpr orgn com US DOPPLER COMPLETE Radiology Routine Hepatomegaly 1 Occurrences starting 01/19/2022 until 02/18/2023 [facility] Work Phone: Comment on above: 1 Occurrences starting 01/19/2022 until 02/18/2023 End: 01-02-2023 ECG COMPLETE ECG COMPLETE ECG Routine Nausea Nausea and vomiting, unspecified vomiting type Abdominal bloating Generalized abdominal pain Epigastric mass Right upper quadrant abdominal mass Abdominal mass, LUQ (left upper quadrant) Weight loss Early satiety Alcohol abuse Dark urine Pulsatile abdomen 1 Occurrences starting 01/02/2022 until 01/02/2023 [facility] Work Phone: Comment on above: 1 Occurrences starting 01/02/2022 until 01/02/2023 Electrocardiogram, 1 2-lead PRN ACS symptoms [facility] Service Area Work Phone: Erythrocyte mean corpuscular volume determination [facility] ETHYL GLUCURONIDE UR SCR ETHYL G LUCURONIDE UR SCR Lab Routine Alcoholic liver disease (HCC) 02/14/2022 4:25 PM EDT [facility] Work Phone: Glucose [Mass/volume ] in Serum or Plasma [facility] Glucose [Mass/volume ] in Serum or Plasma [facility] Work Phone: Hematocrit [Volume Fraction] of Blood [facility] Hemoglobin [Mass/vol ume] in Blood [facility] Hepatic function 200 0 panel - Serum or Plasma [facility] Work Phone: Hepatitis B virus mccoy rface Ag [Presence] in Serum [facility] INR in Blood by Coag ulation assay [facility] Leukocytes [#/volume ] in Blood [facility] Magnesium [Mass/volu me] in Serum or Plasma [facility] Work Phone: Mean corpuscular hem oglobin concentration determination [facility] Mean corpuscular hem oglobin determination [facility] Measurement of renal function [facility] MR Abdomen WO and W contrast IV [facility] End: 02-08-2023 Mri abdomen w/o & w/contrast material MRI LIVER WO/W IVCON Radiology Routine Hepatomegaly Hypersplenism 1 Occurrences starting 01/09/2022 until 02/08/2023 [facility] Work Phone: Comment on above: 1 Occurrences starting 01/09/2022 until 02/08/2023 Mycobacterium sp nilesh ntified in Unspecified specimen by Organism specific culture [facility] Work Phone: Mycobacterium sp nilesh ntified in Unspecified specimen by Organism specific culture [facility] Work Phone: Neutrophil count [facility] Neutrophil percent differential count [facility] PAIN PANEL, UR QUANT PAIN PANEL, UR QUANT Lab Routine Alcoholic liver disease (HCC) 02/14/2022 4:26 PM EDT [facility] Work Phone: Patient Education ED Ascites ED Constipation (Adult) [facility] Work Phone: PHOSPHATIDYLETHANOL (PETH) PHOSP HATIDYLETHANOL (PETH) Lab Routine Alcoholic liver disease (HCC) 02/14/2022 3:27 PM EDT [facility] Work Phone: Platelets [#/volume] in Blood [facility] Potassium measurement [facility] PT and aPTT panel - Platelet poor plasma by Coagulation assay [facility] Work Phone: Red blood cell count [facility] Red cell distributio n width determination [facility] Renal function 2000 panel - Serum or Plasma [facility] Work Phone: Serum chloride measurement [facility] Sodium measurement [facility] Total protein measurement [facility] TOX SCREEN ROUT UR TOX SCREEN RO UT UR Lab Routine Alcoholic liver disease (HCC) 02/14/2022 4:26 PM EDT [facility] Work Phone: Urea nitrogen [Mass/ volume] in Serum or Plasma [facility] End: 02-18-2023 US ABD LIVER VASCULAR US ABD LIVER VASCULAR Radiology Routine Hepatomegaly 1 Occurrences starting 01/19/2022 until 02/18/2023 [facility] Work Phone: Comment on above: 1 Occurrences starting 01/19/2022 until 02/18/2023 VIBRATION CONTROLLED TRANSIENT ELASTOGRAPHY (POC) VIBRATION CONTROLLED TRANSIENT ELASTOGRAPHY (POC) Imaging Diagnostic Routine Hepatomegaly Ordered: 01/19/2022 [facility] Work Phone: Comment on above: Ordered: 01/19/2022 Zinc [Mass/volume] i n Serum or Plasma ZINC BLD Lab Routine Alcoholic liver disease (HCC) 02/14/2022 3:27 PM EDT [facility] Work Phone: [facility] Immunizations Immunization Date Immunization Notes Care Provider Samy farias 02-14-2022 hepatitis A and hepatitis B vaccine Adriana POPE Work Phone: [facility] 11-04-2014 pneumococcal conjuga te vaccine, [address] [facility] Work Phone: [facility] Work Phone: 01-31-2013 influenza virus vaccine, unspecified formulation [facility] Work Phone: [facility] Work Phone: 06-04-2012 hepatitis B vaccine, adult dosage [facility] Work Phone: [facility] 06-04-2012 hepatitis B vaccine, unspecified formulation [facility] Work Phone: [facility] 05-22-2012 measles, mumps and rubella virus vaccine [facility] Work Phone: [facility] Work Phone: 05-13-2012 tuberculin skin test ; purified protein derivative solution, intradermal Xr [facility] Work Phone: [facility] 04-23-2012 hepatitis B vaccine, adult dosage [facility] Work Phone: [facility] 04-23-2012 influenza virus vaccine, unspecified formulation [facility] Work Phone: [facility] 04-23-2012 tuberculin skin test ; purified protein derivative solution, intradermal [facility] Work Phone: [facility] 07-08-2009 tetanus toxoid, redu leobardo diphtheria toxoid, and acellular pertussis vaccine, adsorbed [facility] Work Phone: [facility] Work Phone: Payers Date Payer Category Payer [employer] Blue [employer] ld [facility] [id number] 2024 Self-pay 2021 [employer] BLUE CARD PPO OOS [id number] 2021 Unknown [id number] 2020 Unknown [id number] 2018 Private Health Insurance [facility] CHOICE PLUS [id number] 2018-2021 [address] [place] [address] HMO [id number] 1980 Unknown [id number] 1980 Unknown [id number] Unknown [id number] Unknown [id number] Unknown [id number] Unknown [id number] Unknown [id number] Unknown [id number] Unknown [id number] Unknown [id number] Unknown [id number] Social History Date Type Detail Facility Start: 01-05-2011 End: 01-02-2022 Tobacco smoking status NHIS Occasional tobacco smoker [facility] Start: 04-16-2024 History of tobacco use Cigarette Smoker [facility] Start: 01-02-2022 End: 2024 Cigarettes smoked current (pack per day) - Reported 0.5 [facility] Start: 01-05-2011 End: 01-02-2022 Tobacco use and exposure Smokeless tobacco non-user [facility] Start: 01-02-2022 End: 2024 Alcohol intake Current drinker of alcohol (finding) [facility] Start: 01-01-2022 History SDOH Alcohol Frequency 5 [facility] Start: 01-01-2022 History SDOH Alcohol Std Drinks 2 [facility] Start: 11-04-2014 History SDOH Alcohol Comment occasional: At least 12 pack over the weekend and probably additional 12 pack through the week [facility] Start: 01-01-2022 History SDOH Social Connections Get Together 3 [facility] Start: 01-01-2022 History SDOH Social Connections Islam 1 [facility] Start: 01-01-2022 History SDOH Social Connections Living 8 [facility] Start: 01-05-2011 End: 01-02-2022 Tobacco Comment 5 cigs a day [facility] Start: 1980 Sex Assigned At Not on file [facility] Start: 10-05-2020 End: 02-14-2022 Exposure to SARS-CoV-2 (event) Not sure [facility] Start: 01-09-2022 History SDOH Alcohol Comment Daily, after work [facility] Start: 01-10-2022 End: 01-20-2022 Exposure to SARS-CoV-2 (event) Unable to assess [facility] Start: 01-01-2022 End: 2024 Social connection and isolation panel [facility] Do you belong to any clubs or organizations such as yazidism groups, unions, fraternal or athletic groups, or school groups? No [facility] Are you now , , , , never or living with a partner? Living with partner [facility] How often to you hav e a drink containing alcohol? 4 or more times a week [facility] How many standard dr inks containing alcohol do you have on a typical day? 3 or 4 [facility] How often do you hav e 6 or more drinks on 1 occasion? Less than monthly [facility] How hard is it for y ou to pay for the very basics like food, housing, medical care, and heating Somewhat hard [facility] Start: 03-17-2012 End: 03-10-2022 Adult Depression Screening Assessment 0 [facility] (I/We) worried wheth er (my/our) food would run out before (I/we) got money to buy more. Never true [facility] In the past 12 month s, was there a time when you were not able to pay the mortgage or rent on time? Yes [facility] Start: 12-02-2024 End: 12-04-2024 Tobacco smoking status NHIS Smokes tobacco daily (finding) [facility] Start: 1980 Sex Assigned At Male [facility] Start: 2024 Tobacco use and exposure User of smokeless tobacco [facility] Work Phone: Are you now , , , , never or living with a partner? [facility] Work Phone: How often do you hav e 6 or more drinks on 1 occasion? Weekly [facility] Work Phone: Do you feel stress - tense, restless, nervous, or anxious, or unable to sleep at night because your mind is troubled all the time - these days [OSQ] To some extent [facility] Work Phone: How often do you nee d to have someone help you when you read instructions, pamphlets, or other written material from your doctor or pharmacy [SILS] Never [facility] Work Phone: Start: 12-04-2024 Gender identity Identifies as male gender (finding) [facility] Functional Status Date Assessment Result Facility 2024 Total score [AUDIT-C] [facility] Work Phone: 2024 Patient Health Quest ionnaire 2 item (PHQ-2) [Reported] [facility] Work Phone: 12-04-2024 [facility] s everity rating scale screener - recent [C-SSRS] [facility] Work Phone: 11-04-2014 Are you deaf, or do you have serious difficulty hearing No 11/04/2014 11:25 AM Alethea Ochoa LPN No [facility] 11-04-2014 Are you blind, or do you have serious difficulty seeing, even when wearing glasses No 11/04/2014 11:25 AM Alethea Ochoa LPN No [facility] 11-04-2014 Do you have serious difficulty walking or climbing stairs No 11/04/2014 11:25 AM Alethea Ochoa LPN No [facility] 11-04-2014 Do you have difficul ty dressing or bathing No 11/04/2014 11:25 AM Alethea Ochoa LPN No [facility] 11-04-2014 Because of a physica l, mental, or emotional condition, do you have difficulty doing errands alone such as visiting a physician's office or shopping No 11/04/2014 11:25 AM Alethea Ochoa LPN No 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 Peripheral IV already out at time of discharge. Belongings gathered per patient. Has a ride home. Refused transport and ambulated off unit with family at 1328. ---- Nita Ruth RN documented in this encounter [facility] Work Phone: 12-12-2024 Miscellaneous Notes The patient's [...] time: 142 Event end time: 144 Location: [place] [address] [] Triage by phone or secure messaging Rapid response initiated by: [] Rapid response RN [] Family [] Nursing Insurance Biller [] Physician [x] RADAR auto page [] Sepsis auto-page [] RN [] RT [] MACHINE TOOL DESIGNER/PA [] Other: Primary reason for call: [] [...] Outcome: Progressing INTERVENTIONAL RADIOLOGY ADVANCED PRACTICE PROCEDURE [facility] A time out was performed and Right [...] CLAUDIA services at this time. Please contact [facility] via secure chat to resume services or [...] time: 2110 Event end time: 2117 Location: [place] [address] [] Phone triage Rapid response initiated by: [] Rapid Response RN [] Family [] Nursing Insurance Biller [] Physician [x] RADAR auto-page [] Sepsis auto-page [] RN [] RT [] MACHINE TOOL DESIGNER/PA [] Other: Primary reason for call: [] [...] another patient. Patient was sent back to [place] [address]. Patient was agitated, pulled out his IV, [...] barriers include . documented in this encounter [facility] Work Phone: 12-12-2024 History of Presen t illness Narrative [facility] [place] PROGRESS NOTE Reason For Consult Alcoholic Hepatitis [...] cessation and to follow up with transplant network support specialist for possible evaluation in case the patient further decompensates and shows sobriety. Plan -Discontinue prednisolone -Continue diuretics to lasix 40mg/spironolactone 100mg. -Continue rifaximin/lactulose -Continue thiamin/MVI -Daily MELD lab (CBC, LFT, BMP, INR) while inpt. Recommend labs in 1 week as outpt. -Patient to follow up with Dr. Renteria as outpatient. Will arrange it. -EGD as outpatient. Patient to obtain with his local salt manager. Patient could also get paracentesis PRN there, limit fluid removal to 4 lts and check cell count with diff. Patient was seen and discussed with Dr. Jalloh Thank you for this interesting consult. Gastroenterology will sign off. -During weekday hours of 7am-5pm please do not hesitate to contact me on Attender Chat or page [phone] if there are any further questions between the weekday hours of 7 AM - 5 PM. -After hours, on weekends, and on holidays, [place] [phone]. Thank you. Elena Quinteros MD Gastroenterology Fellow, [...] 1 tablet, 1 tablet, oral, Daily, Azalia Zamoar MD, 1 tablet at 12/12/24928 nicotine (Nicoderm [...] close to home with GI team in [place]. Discussed the importance of sobriety from all [...] and to develop skills to prevent relapse. [facility] [place] PROGRESS NOTE Reason For Consult Alcoholic Hepatitis [...] do not hesitate to contact me on Attender Chat or page [phone] if there are any further questions between the weekday hours of 7 AM - 5 PM. -After hours, on weekends, and on holidays, [place] [phone]. Thank you. Elena Quinteros MD Gastroenterology Fellow, [...] currently. Alessandro Renteria MD, CRISTINA, FAASLD, FACG Roofer Applicator, Hepatology Senior Attending Physician [facility] regional psychiatric director Division of Gastroenterology and Liver Disease [facility] [address] [place] [phone] 12/11/24 1031 Rapid Rounds Attendance Provider;Nurse;Care Transitions Expected Discharge Disposition Home (Steroid) Today we still await: Clinical stability;Diagnostic workup;Symptomatic control Review at Escalation Rounds No escalation needed RAZA Luis-retail manager in training Coordinator (TCC) [phone] ext [phone] Nutrition Follow Up Assessment Nutrition Assessment Reason [...] fish. He is open to trying Boost [facility] daily for more calories and protein with [...] , Vit B12: No results found for: [id number] , Iron Panel: Lab Results Component Value [...] beverage medical food supplement therapy Goal: Boost [facility] daily to provide 530kcal and 22g protein [...] hydroxide-simeth, dextrose, dextrose, diazePAM, glucagon, glucagon, oxygen [facility] [place] PROGRESS NOTE Reason For Consult Alcoholic Hepatitis [...] do not hesitate to contact me on Attender Chat or page [phone] if there are any further questions between the weekday hours of 7 AM - 5 PM. -After hours, on weekends, and on holidays, [place] [phone]. Thank you. Elena Quinteros MD Gastroenterology Fellow, [...] oral diuretics. Alessandro Renteria MD, CRISTINA, FAASLD, [facility] Roofer Applicator, Hepatology Senior Attending Physician [facility] regional psychiatric director Division of Gastroenterology and Liver Disease [facility] [address] [place] [phone] 12/10/24 1036 Rapid Rounds Attendance Provider;Nurse;Care Transitions Expected Discharge Disposition Home Today we still await: Clinical stability;Diagnostic workup;Symptomatic control (hepatolgy recs) Review at Escalation Rounds No escalation needed TCC will continue to follow and update the plan as warranted. OPAL LuisN-retail manager in training Coordinator (TCC) [phone] ext [phone] [facility] [place] PROGRESS NOTE Reason For Consult Alcoholic Hepatitis [...] do not hesitate to contact me on Attender Chat or page [phone] if there are any further questions between the weekday hours of 7 AM - 5 PM. -After hours, on weekends, and on holidays, [place] [phone]. Thank you. Elena Quinteros MD Gastroenterology Fellow, [...] the cholestasis. Alessandro Renteria MD, CRISTINA, FAAS, [facility] Roofer Applicator, Hepatology Senior Attending Physician [facility] regional psychiatric director Division of Gastroenterology and Liver Disease [facility] [address] [place] [phone] [facility] [place] PROGRESS NOTE Reason For Consult Alcoholic Hepatitis [...] contact me on Epic Chat or page [phone] if there are any further questions between the weekday hours of 7 AM - 5 PM. -After hours, on weekends, and on holidays, [place] [phone]. Thank you. Elena Quinteros MD Gastroenterology Fellow, [...] the future. Alessandro Renteria MD, CRISTINA, FAASLD, [facility] Roofer Applicator, Hepatology Senior Attending Physician [facility] regional psychiatric director Division of Gastroenterology and Liver Disease [facility] [address] [place] [phone] Jose Parker is a 44 y.o. male [...] By: Houston Avalos and Sheng Max STUDY: [facility] US ABDOMINAL/PELVIC DUPLEX COMPLETE; 12/07/2024 12:52 pm INDICATION: Signs/Symptoms:Liver doppler. ,R10.84 Generalized abdominal pain COMPARISON: US ABDOMEN LIMITED 2024, MR INTERPRETATION OF OUTSIDE FILMS 12/04/2024, CT INTERPRETATION OF OUTSIDE FILMS 12/02/2024 ACCESSION NUMBER(S): [id number] ORDERING CLINICIAN: BRIANNA SINGH TECHNIQUE: Multiple color and spectral Doppler images of the liver and spleen were obtained. This examination was interpreted at [facility]. FINDINGS: DOPPLER EVALUATION: HEPATIC ARTERIES: The following [...] Jama Dominguez. This study was interpreted at [place], [place]. MACRO: None Signed by: Houston Avalos 12/07/2024 7:03 PM Dictation workstation: [id number] Physical Exam Constitutional: Appearance: Normal appearance. HENT: [...] By: Houston Avalos and Sheng Max STUDY: [facility] US ABDOMINAL/PELVIC DUPLEX COMPLETE; 12/07/2024 12:52 pm INDICATION: Signs/Symptoms:Liver doppler. ,R10.84 Generalized abdominal pain COMPARISON: US ABDOMEN LIMITED 2024, MR INTERPRETATION OF OUTSIDE FILMS 12/04/2024, CT INTERPRETATION OF OUTSIDE FILMS 12/02/2024 ACCESSION NUMBER(S): [id number] ORDERING CLINICIAN: BRIANNA SINGH TECHNIQUE: Multiple color and spectral Doppler images of the liver and spleen were obtained. This examination was interpreted at [facility]. FINDINGS: DOPPLER EVALUATION: HEPATIC ARTERIES: The following [...] Jama Dominguez. This study was interpreted at [place], [place]. MACRO: None Signed by: Houston Avalos 12/07/2024 7:03 PM Dictation workstation: [id number] CT head wo IV contrast Result Date: 12/06/2024 Interpreted By: Ignacio Torres, STUDY: CT HEAD WO IV CONTRAST; 12/06/2024 8:10 am INDICATION: Signs/Symptoms:altered mental status. COMPARISON: None. ACCESSION NUMBER(S): [id number] ORDERING CLINICIAN: BRIANNA SINGH TECHNIQUE: Axial noncontrast [...] Ignacio Torres 12/06/2024 5:35 PM Dictation workstation: [id number] US abdomen limited Result Date: 2024 Interpreted By: Mina España and Stevens Alex STUDY: US ABDOMEN LIMITED; 2024 9:15 am INDICATION: Signs/Symptoms:new liver disease. COMPARISON: None. ACCESSION NUMBER(S): [id number] ORDERING CLINICIAN: VERO MACHADO TECHNIQUE: Multiple images [...] DO PGY-3. This study was interpreted at [place], [place]. MACRO: None Signed by: Mina España 2024 4:20 PM Dictation workstation: [id number] ECG 12 lead Result Date: 2024 Sinus tachycardia Possible Left atrial enlargement Cannot rule out Anterior infarct , age undetermined Abnormal ECG No previous ECGs available See ED provider note for full interpretation and clinical correlation Confirmed by Rekha Armstrong ([id number]) on 2024 7:08:02 AM US right upper quadrant Result Date: 2024 Interpreted By: Leena Mcgraw and Bartolomei Aguilar Christopher STUDY: US RIGHT UPPER QUADRANT; 2024 12:07 am INDICATION: Signs/Symptoms:new cholestasis, eval for source of obstruction. COMPARISON: MRI liver 12/04/2024. CT abdomen and pelvis 12/02/2024. ACCESSION NUMBER(S): [id number] ORDERING CLINICIAN: VERO MACHADO TECHNIQUE: Multiple images [...] wall thickness measures 0.3 cm. Per the rewinder Corbett's sign is negative. BILE DUCTS: No [...] Leena Mcgraw 2024 3:24 AM Dictation workstation: [id number] Assessment & Plan Jose Parker is a [...] K >4 Nutrition: Regular, 2g Na with 3861-7092 ml fluid restriction when able Access: PIV DVT ppx: hold iso elevated INR GI ppx: NA Bowel care: lactulose Catheter: None Antibiotics: None Oxygen: Room Air Code Status: Full Code (confirmed on admission) NOK: Spouse; Jennifer Jose Luis Parker Braeunig Arin Gonsalez MD Cosigned by Brianna [...] worsen; MELD 26, Maddreys 59 -Full infectious parks negative (including prior dx para); abx discontinued -Start prednisone 40mg today for alcoholic hepatitis -Continue lasix/aldactone, rifaximin/lactulose -Therapeutic para today -Understanding of poor prognosis and why he is not transplant eligible -CIWAS improved; CTM 12/08/24 1020 Rapid Rounds Attendance Provider;Nurse;Care Transitions Expected Discharge Disposition Home Today we still await: Clinical stability;Diagnostic workup;Symptomatic control Review at Escalation Rounds No escalation needed OPAL LuisN-retail manager in training Coordinator (TCC) [phone] ext [phone] [facility] [place] CONSULT FOLLOW-UP Reason For Consult Alcoholic Hepatitis [...] MELD lab (CBC, LFT, BMP, INR) -Await [facility] Patient was seen and discussed with Dr. Renteria. Thank you for this interesting consult. Gastroenterology will continue to follow. -During weekday hours of 7am-5pm please do not hesitate to contact me on Attender Chat or page [phone] if there are any further questions between the weekday hours of 7 AM - 5 PM. -After hours, on weekends, and on holidays, [place] [phone]. Thank you. Marisol Suero MD Gastroenterology Fellow, [...] increasing. Alessandro Renteria MD, CRISTINA, FAASLD, FACG Roofer Applicator, Hepatology Senior Attending Physician [facility] regional psychiatric director Division of Gastroenterology and Liver Disease [facility] [address] [place] [phone] Jose Parker is a 44 y.o. male [...] Signs/Symptoms:altered mental status. COMPARISON: None. ACCESSION NUMBER(S): [id number] ORDERING CLINICIAN: BRIANNA SINGH TECHNIQUE: Axial noncontrast [...] Ignacio Torres 12/06/2024 5:35 PM Dictation workstation: [id number] Physical Exam Constitutional: General: He is not [...] ascending cholangitis (AMS, jaundice) given elevated bilirubin tgh-tz-erqyxqvbfg to alcoholic hepatitis. Updates 12/07: - Improved mental status - lactulose titrated to 3-5 BM - [facility] 234 - hepatology onboard--steroids starting tomorrow but consider [...] ::last drink Friday 12/01 ::CTH negative Plan: -[facility] protocol initiated -ctm for seizures [...] K >4 Nutrition: Regular, 2g Na with 4725-0844 ml fluid restriction when able Access: PIV [...] and clinical correlation Confirmed by Rekha Armstrong ([id number]) on 2024 7:08:02 AM US right upper quadrant Narrative: Interpreted By: Leena Mcgraw, and Ziggy Charles STUDY: US RIGHT UPPER QUADRANT; 2024 12:07 am INDICATION: Signs/Symptoms:new cholestasis, eval for source of obstruction. COMPARISON: MRI liver 12/04/2024. CT abdomen and pelvis 12/02/2024. ACCESSION NUMBER(S): [id number] ORDERING CLINICIAN: VERO MACHADO TECHNIQUE: Multiple images [...] wall thickness measures 0.3 cm. Per the rewinder Corbett's sign is negative. BILE DUCTS: No [...] Leena Mcgraw 2024 3:24 AM Dictation workstation: The Optima Physical Exam HENT: Head: Normocephalic. Eyes: General: [...] ascending cholangitis (AMS, jaundice) given elevated bilirubin erg-ay-mozlgejsyy to alcoholic hepatitis. Updates 12/06: - For [...] K >4 Nutrition: Regular, 2g Na with 5327-1223 ml fluid restriction when able Access: PIV [...] Progress Note Department of Gastroenterology & Hepatology [facility] December 06, 2024 Patient: Jose Parker Medical Record: [id number] Reason for Initial Consult: Alcoholic Hepatitis Interval [...] DO PGY-3. This study was interpreted at [place], [place]. MACRO: None Signed by: Mina España 2024 4:20 PM Dictation workstation: [id number] GI procedures Assessment and Plan: Jose Parker [...] Farzad Barbour MD, PhD Gastroenterology Fellow, PGY-[address] [facility] Division of Gastroenterology and Liver Disease Thank you for the consultation. Gastroenterology will continue to the follow the patient. Please do not hesitate to contact me on DocHalo or page [phone] if there are any further questions between the weekday hours of 7 AM - 5 PM. If there is an urgent concern during the weekend, after-hours, or holidays; then [place] [phone]. Thank you. SIGNATURE: Farzad Barbour MD PATIENT [...] diet for the ascites. Alessandro Renteria MD, CRISTINA, FAASLD, [facility] Roofer Applicator, Hepatology Senior Attending Physician [facility] [place] regional psychiatric director Division of Gastroenterology and Liver Disease [facility] Medicine [address] [place] [phone] Pharmacy Medication History Review Jose Parker is a 44 y.o. male admitted for Generalized abdominal pain. Pharmacy reviewed the patient's lmldq-mt-rzclysrmi medications and allergies for accuracy. Medications ADDED: All medications on COMMERCIAL REAL ESTATE ASSOCIATE list Medications CHANGED: None Medications REMOVED: None The list below reflects the updated COMMERCIAL REAL ESTATE ASSOCIATE list. Prior to Admission Medications Prescriptions Last [...] Allergies Patient accepts M2B at discharge. Sources: [facility] Pharmacy dispense history Spouse patient confused. Reviewed home meds with in the room Chart Review Care Everywhere Additional Comments: None Robson Lyon PharmD Transitions of Care Pharmacist 12/05/24 Secure Chat preferred If no response call [phone] or [employer] [facility] Rec Jose Parker is a 44 [...] and clinical correlation Confirmed by Rekha Armstrong ([id number]) on 2024 7:08:02 AM US right upper quadrant Narrative: Interpreted By: Leena Mcgraw, and Ziggy Charles STUDY: US RIGHT UPPER QUADRANT; 2024 12:07 am INDICATION: Signs/Symptoms:new cholestasis, eval for source of obstruction. COMPARISON: MRI liver 12/04/2024. CT abdomen and pelvis 12/02/2024. ACCESSION NUMBER(S): [id number] ORDERING CLINICIAN: VERO MACHADO TECHNIQUE: Multiple images [...] wall thickness measures 0.3 cm. Per the rewinder Corbett's sign is negative. BILE DUCTS: No [...] Leena Mcgraw 2024 3:24 AM Dictation workstation: The Optima Physical Exam HENT: Head: Normocephalic. Eyes: General: [...] Rate 124 BPM Atrial Rate 124 BPM ME Interval 156 ms QRS Duration 74 ms QT Interval 334 ms QTC Calculation(Bazett) 479 ms P [place] 35 degrees R [place] -11 degrees T [place] 49 degrees QRS Count 21 beats Q [...] %, Manual, Fluid 6 see comment % Foard/Macrophages %, Manual, Fluid 46 see comment % Eosinophils %, Manual, Fluid 5 see comment % Total Cells Counted, Fluid 100 Osmolality, urine Result Value Ref Range Osmolality, Urine Random 705 200 - 1,200 mOsm/kg Urinalysis with Reflex Culture and Microscopic Result Value Ref Range Color, Urine Dark-Yellow Light-Yellow, Yellow, Dark-Yellow Appearance, Urine Turbid (N) Clear Specific [place], Urine 1.029 1.005 - 1.035 pH, Urine [...] ascending cholangitis (AMS, jaundice) given elevated bilirubin cyf-pu-zgfpmhkjjk to alcoholic hepatitis. #Acute Decompensated Cirrhosis 2/2 [...] NPO for liver imaging, 2g Na with 3727-6921 ml fluid restriction when able Access: None [...] were you homeless or living in a snf (including now)? N Transportation Needs In the [...] Met with patient and Introduced myself as healthcare consultant and member of the Care Transitions team for discharge planning. Patient demographics and contact information verified. Pt feels safe at home. Patient have no further questions or concerns at this time. Transportation: Patient drive to appt spouse will transport him home Pharmacy: [facility]) DME: None Previous home care: None Falls: No recent falls PCP: Carolyn Askew CELL ATTENDANT HELPER-PODIATRY DOCTOR Dialysis: Denies Diabetic: Denies TCC will continue to follow and update the plan as warranted. RAZA Luis-retail manager in training Coordinator (TCC) [phone] ext [phone] Images from the original note were not [...] course. The patient was discussed with the transfer coordinator who is accepted the patient for admission to the GI service for further management. The patient was admitted in stable condition. ED Course: ED Course as of 12/05/24 0153 Kiara Dec 04, [id number] Ammonia(!): 64 [MM] 2206 Attending summary: 43 y/o M with PMHx EtOH use who is presenting by instructions from his local [facility] for abnormal LFTs. Pt saw a assistant refinery operator earlier this week and had labs checked and found to have abnormal LFTs. Had an inpatient hospital stay at [place], had labs, CT c/a/p, MRI liver. Pt [...] DO ED Attending documented in this encounter [facility] Work Phone: 12-12-2024 Hospital Discharg e instructions Arin Gonsalez MD - 12/12/2024 10:38 AM EDT Dear Jose Jainism, You were hospitalized here at [facility] on 12/04/24 after presenting to the ED [...] can schedule all follow-up appointments through the [employer] jose, or you can call the central scheduling line at . Please be sure to bring your discharge paperwork to all follow-up appointments. If at any time you start developing severe abdominal pain, altered mental status, nausea, or vomiting you should immediately return to the emergency room or call 911. It was a pleasure taking care of you here at [facility]. We wish you a speedy recovery. Sincerely, [...] Everywhere.Abdominal pain in adults ED discharge instructions (Greek)documented in this encounter [facility] Work Phone: [phone] Consult note Associated Order (s): IP CONSULT TO HEPATOLOGY [facility] [place] INITIAL CONSULT NOTE Reason For Consult Alcohol [...] alcohol hepatitis in 2021. Established care with network support specialist at [facility] but unhappy with the care. 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 Per note from network support specialist, patient was told to quit alcohol. The [...] 10 min Stress: Stress Concern Present (2024) [employer] [place] [employer] - Occupational Stress Questionnaire Feeling of Stress: To some extent Social Connections: Moderately Isolated (2024) Social Connection and Isolation Panel Frequency of Communication with Friends and Family: Three times a week Frequency of Social Gatherings with Friends and Family: Once a week Attends Adventism Services: Never Active Member of Clubs or [...] redirect to the Timeline version of the [employer] SmartLink. Intake/Output Summary (Last 24 hours) at [...] Rate 124 BPM Atrial Rate 124 BPM ME Interval 156 ms QRS Duration 74 ms QT Interval 334 ms QTC Calculation(Bazett) 479 ms P [place] 35 degrees R [place] -11 degrees T [place] 49 degrees QRS Count 21 beats Q [...] %, Manual, Fluid 6 see comment % Foard/Macrophages %, Manual, Fluid 46 see comment % Eosinophils %, Manual, Fluid 5 see comment % Total Cells Counted, Fluid 100 Osmolality, urine Result Value Ref Range Osmolality, Urine Random 705 200 - 1,200 mOsm/kg Urinalysis with Reflex Culture and Microscopic Result Value Ref Range Color, Urine Dark-Yellow Light-Yellow, Yellow, Dark-Yellow Appearance, Urine Turbid (N) Clear Specific [place], Urine 1.029 1.005 - 1.035 pH, Urine [...] MELD lab (CBC, LFT, BMP, INR) -Await [facility] Patient was seen and discussed with Dr. Renteria Thank you for the consultation. Hepatology will continue to the follow. - During weekday hours of 7am- 5pm, please do not hesitate to contact me on Attender Chat or page [phone] if there are any further questions - After hours, on weekends, and on holidays, [place] [phone]. Thank you. Elena Quinteros MD PGY6 Gastroenterology Fellow [facility] [place] [1] History reviewed. No pertinent past medical [...] in the GI and liver clinics at [facility] in the past. They have recommended that he avoid all alcohol use. Unfortunately, despite that, he has continued to abuse alcohol. They have done extensive workup on him in the past as outlined in the chart. FibroScan in 2021 showed cirrhosis. 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 He was seen by his local providers at [facility] a few days ago. The exact reason [...] abuse alcohol. Alessandro Renteria MD, CRISTINA, FAASLD, [facility] [place] Roofer Applicator, Hepatology Senior Attending Physician [facility] [place] [facility] regional psychiatric director Division of Gastroenterology and Liver Disease [facility] [address] [place] [id number] Associated Order(s): IP CONSULT TO NUTRITION SERVICES [...] ARNOLD RDN, LD documented in this encounter [facility] Work Phone: 2024 History and physical note MEDICINE ADMISSION NOTE HISTORY PRESENT ILLNESS Jose Parker is a 44 y.o. male with h/o alcohol use and hepatic steatosis vs cirrhosis admitted to [facility] 12/05/24 with x1-2 week of worsening abdominal [...] ascites. He was referred to GI at [facility] in January. Liver ultrasound with doppler showed [...] for other causes. He established care with [facility] clinic but was subsequently lost to follow [...] needs to be admitted either to or [facility] downtown. On current evaluation he is [...] (thought he saw the GI doctor at [facility] a few weeks ago). Few instances of [...] and hepatic steatosis vs cirrhosis admitted to [facility] 12/05/24 with x1 week of worsening abdominal [...] NPO for liver imaging, 2g Na with 0748-7491 ml fluid restriction when able Access: PIV [...] with day team documented in this encounter [facility] Work Phone: 12-04-2024 Emergency department Note Images [...] and they referred him to either or [facility] for admission. Patient chose as he has seen [facility] in the past and had a bad [...] None Care Considerations: As documented above in [facility] ED Course: ED Course as of 12/04/24 232 Kiara Dec 04, [id number] Ammonia(!): 64 [MM] 2206 Attending summary: 43 y/o M with PMHx EtOH use who is presenting by instructions from his local [facility] for abnormal LFTs. Pt saw a assistant refinery operator earlier this week and had labs checked and found to have abnormal LFTs. Had an inpatient hospital stay at [facility], had labs, CT c/a/p, MRI liver. Pt [...] liver failure. Patient had labs drawn at [facility]. Patient is having disperse abdominal pain. documented in this encounter [facility] Work Phone: 12-04-2024 Note HNO ID: [id number] Author: PIEDAD RIBEIRO APRN.PODIATRY DOCTOR Service: ? Author Type: Nurse Practitioner Type: [...] this presentation at this time Piedad Ribeiro APRN.PODIATRY DOCTOR History and Record Review External record(s) reviewed: prior outpatient record and prior labs/imaging. Systemic symptoms present included: Tachycardia Disposition The patient was discharged. Transfer to ED was considered. Reason for not transferring: Patient has close follow-up scheduled as outpatient Procedures [facility] 12-04-2024 History of Presen t illness Narrative [...] as outpatient Procedures documented in this encounter [facility] 12-02-2024 Radiology Diagnostic study note [facility] Imaging Services [address] [place] [id number] Chest, Abd, Pel w/Contrast MR#: [id number] Acct: [id number] Name: JOSE PARKER Rep #: [id number] : 1980 M 43 From: Onur Thomason MD PCP: RAJESH Redd Status: REG ER Study:CT Chest, Abd, Pel w/Contrast Date of E xam: 12/02/24 Exam# [id number] Ordering Dr: Kt Nieves MD PROCEDURE: CT [...] characterization. *No additional acute abnormalities. Reading Location: [id number] CC: RAJESH Patrick; Dr. Taj Nieves MD ~ Weather Forecaster: Signed [facility] 09-04-2024 Evaluation note Diagnosis Onset Date Resolution Physical exam, pre-employment acute September 04, 2024 7 :46am [facility] Work Phone: 1(299) 299-594205-22-2025 Evaluation note* Diagnosis Onset Date Resolution Status Admit Date Physical exam, pre-employment acute September 04, 2024 7:46am Abdominal ascites acute December 04, 2024 10:00am Abdominal pain acute November 10:00am Abnormal findings on diagnostic imaging of abdomen acute [facility] 2024 10:00am Elevated liver enzymes acute [facility] 2024 10:00am [facility] Work Phone: 1(588) 188-780105-22-2025 Evaluation note* Diagnosis Onset Date Resolution Status Admit Date Physical exam, pre-employment acute September 04, 2024 7:46am Abnormal findings on diagnostic imaging of abdomen acute [facility] 2024 10:00am Acute alcoholic hepatitis acute December 04, 2024 10:00am Abdominal ascites inactive December 04, 2024 10:00am Abdominal pain inactive November 10:00am Elevated liver enzymes inactive [facility] 2024 10:00am [facility] Work Phone: 1(386) 760-787706-24-2024 Telephone encounter Note* Telephone Encounter - Noemi Russell MD - 10/08/2023 11:56 AM EDT Called patient to offer MAP vs hepatology appt. No answer, left voicemail asking for callback. [facility]06-24-[facility]24 Miscellaneous Notes* Telephone Encounter - Noemi Russell MD - 10/08/2023 11:56 AM EDT Called patient to offer MAP vs hepatology appt. No answer, left voicemail asking for callback. [facility] Miscellaneous Notes* Telephone Encounter - Jorge Prasad [...] Advise patient he should be contacting his salt manager for his persistent nausea. * Telephone Encounter [...] notify patient. Edel Matta documented [facility] encounterL[facility]12-[facility]-2022 Miscellaneous Notes* Telephone Encounter - Talia Tao LPN - 03/17/2022 10:04 AM EST Patient phones requesting refills as follows: Requested Prescriptions Pending Prescriptions Disp Refills promethazine (PHENERGAN) 12.5 mg tablet 30 tablet 1 Sig: Take 1-2 tablets by mouth every 6 hours as needed for nausea/vomiting. LAMAR-01/02/22 Labs-02/14/22 NOV-none med filled Please review and advise. Talia Tao LPN documented in this encounterLuther[facility] Hospital11-14-2022 Miscellaneous Notes* Telephone Encounter - TOSHIA Robbins - 02/27/2022 11:46 AM EST SW attempted to reach the patient to discuss treatment options available. At previous appointment patient wanted to think about his options and discuss with his girlfriend. Patient's mailbox was fulland SW unable to leave a . SW to reach out via Insty[employer]. TOSHIA Robbins February 27, 2022 11:47 AM documented in this encounterL[facility]11-01-2022 Instructions* Patient Instructions* Noemi Russell MD - [...] can arrange an intake. documented in this encounterLuther[facility]11-01-2022 History of Present illness Narrative* Klever Stark MD - 02/14/2022 2:08 PM EDT MULTIDISCIPLINARY ALCOHOL PROGRAM NEW EVALUATION PATIENT NAME: Jose Parker DATE: February 14, 2022 PATIENT INTERVIEWED: in person. Presented with . ID: Jose is a 41 year old male who is seen today for their alcohol related liver disease. Presently, they live in [place], [place] with family. HISTORY OF PRESENTING ILLNESS: [...] Fibroscan: Reviewed EKG: Reviewed PATIENT ENTERED QUESTIONNAIRES: ANNA-7 02/12/2022 Score 5 [...] which included preparing to see the patient, [id number]-ogwr patient care, completing clinical documentation, obtaining and/or reviewing separately obtained history, performing a medically appropriate examination, counseling and educating the pat ient/family/caregiver, ordering medications, tests, or procedures, communicating with other HCPs (not separately reported), independently interpreting results (not separately reported), communicatingresults to the patient/family/caregiver, and care coordination (not separately reported). KLEVER STARK MD ADDICTION PSYCHIATRIST documented in this encounterLutheran Hospital11-01-2022 History of Present illness Narrative* Noemi Russell MD - 02/14/2022 1:34 PM EDT [facility] - NEW PATIENT Chief Complaint: alcohol related liver disease HPI: Jose Parker is a 41 year old male who presents for initial evaluation in [facility]. Has cut back on alcohol to 2-3 [...] disorder who presents for initial evaluation in [facility]. 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. Noemi Russell MD Staff, Gastroenterology/Hepatology [facility] [place] documented in this encounterLutheran Hospital11-01-2022 History of Present illness Narrative* Adriana Poinsett, RN WOUND - 02/14/2022 1:00 PM EDT Multidisciplinary Alcohol [...] documented on February 14, 2022. 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 Current supports: Gissell (girlfriend), Mom, friends Current legal issues: No Past legal issues: Yes: DUI when 18 year old Marital Status: , In partnered relationship Children: Yes, (2) adult children (23 and 21) - maintains Excellent relationship. Patient has 3 grandchildren. 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 Hobbies: Golf, get together's with family/friends, bowling Congregational: Hoahaoism (does not actively go to yazidism) Mental Status Exam: Mental Status Exam: General/Sensorium: [...] his relationship however did state when he hii94-22 he lost his job due to a [...] 2022 TIME: 1:00 PM documented in this encounterLuther[facility] Hospital11-01-2022 History of Present illness Narrative* Katherin Jimenez APRN.PODIATRY DOCTOR - 02/14/2022 10:25 AM EDT Patient fasting [...] Int J Clin Exp Med. 2015; 8(10): 50862-68100. documented in this encounterLutheran Hospital11-01-2022 History of Present illness Narrative* RT Holland(Linnea) [...] 14, 2022 10:04 AM documented in this encounterLutheran Hospital10-31-2022 Miscellaneous Notes* Telephone Encounter - TOSHIA Robbins - 02/13/2022 9:46 AM EDT Informed Consent documented in this encounterLutheran Hospital10-06-2022 History of Present illness Narrative* Noemi Russell [...] No history of dysuria, frequency or incontinence VEGETABLE HANDLER: Negative for abnormal vaginal bleeding, abnormal vaginal [...] evaluation. I spent more than 30 minutes wlvd-ma-olcd with the patient and over half the time was devoted to counseling and/or coordination of care. Noemi Russell MD documented in this encounterLutheran Hospital10-05-2022 Miscellaneous Notes* Telephone Encounter - Sarah Cheek - 01/18/2022 12:50 PM EDT Called Jose Parker to remind them of an appointment with Dr. Russell on 01/19/22. Spoke with patient. Appointment confirmed. documented in this encounterLutheran Hospital09-26-2022 History of Present illness Narrative* Aleks Najera MD - 01/09/2022 11:30 AM EDT Images from the original note were not included. DEPARTMENT OF GASTROENTEROLOGY AND HEPATOLOGY [facility] OUTPATIENT VISIT DATE January 09, 2022 OUTPATIENT VISIT TYPE NEW Patient: Jose Parker Medical Record: [id number] Reason for Consultation: Opinion/Advice regarding abdominal pain [...] Neurogastroenterology & Motility [facility] [place] [facility] I spent a total of 45 minutes on the date of the service which included preparing to see the patient, hzne-on-jgsk patient care, completing clinical documentation, obtaining and/or [...] Parker DATE OF 1980 documented in this encounterLutheran Hospital09-23-2022 Miscellaneous Notes* Telephone Encounter - Carmita Patrick APRN.MIKA - 01/06/2022 2:41 PM EDT Noted, thank you. Carmita Patrick APRN.IMKA * Telephone Encounter - Hiral Merino Ma - 01/06/2022 2:13 PM EDT FYI pt scheduled 01/09/22. Hiral Merino Ma * Telephone Encounter - Carla Fisher Ma - 01/06/2022 10:36 AM EDT Message given to [facility] to schedule amy. Carla Fisher Ma * [...] days. Carmita Patrick APRN.CNP documented in this encounterLutheran Hospital09-21-2022 History of Present illness Narrative* Keisha Orlando [...] 2022 TIME: 2:27 PM documented in this encounterLutheran Hospital09-21-2022 Miscellaneous Notes* Telephone Encounter - Carla Fisher Ma - 01/04/2022 12:19 PM EDT Pt scheduled for today Carla Fisher Ma * Telephone Encounter - Carmita Patrick APRN.CNP - 01/04/2022 9:48 AM EDT [...] done. Hilaria Ferraro LPN documented in this encounterLutheran Hospital09-19-2022 History of Present illness Narrative* Samantha Polo, [...] 02, 2022 3:36 PM documented in this encounterLutheran Hospital09-19-2022 History of Present illness Narrative* Carmita Patrick, ANNETTE.PODIATRY DOCTOR - 01/02/2022 2:04 PM EDT Chief Complaint [...] 2V FRONTAL/LAT - ECG COMPLETE Carmita Patrick APRN.PODIATRY DOCTOR documented in this encounterLutheran Hospital07-22-2021 History of Present illness Narrative* Samantha Polo, [...] 04, 2020 9:36 AM [facility] Diagnosis Nausea Nausea alone Nausea [...] examination of urine documented in this encounter [facility] note* Diagnosis Intra-abdominal and pelvic swelling, mass and lump, unspecified site- Primary Nausea Nausea alone Abdominal bloating Flatulence, eructation, and gas pain Generalized abdominal pain Abdominal pain, generalized Weight loss Loss of weight Early satiety Alcohol abuse Alcohol abuse, unspecified Dark urine Other nonspecific finding on examination of urine Pulsatile abdomen Other symptoms involving abdomen and pelvis Hepatomegaly documented in this encounter [facility] note* Diagnosis Hepatomegaly- Primary Pulsatile abdomen [...] examination of urine [facility] Diagnosis Intra-abdominal and pelvic swelling, mass and lump, unspecified site Nausea Nausea alone Abdominal bloating Flatulence, eructation, and gas pain Generalized abdominal pain Abdominal pain, generalized Weight loss Loss of weight Early satiety Alcohol abuse Alcohol abuse, unspecified Dark urine Other nonspecific finding on examination of urine Pulsatile abdomen Other symptoms involving abdomen and pelvis Hepatomegaly [facility]* Diagnosis Intra-abdominal and pelvic swelling, mass [...] unspecified vomiting type [facility]* Diagnosis Hypersplenism- Primary Intra-abdominal and pelvic [...] unspecified vomiting type [facility]* Diagnosis Alcoholic cirrhosis of liver without ascites (HCC)- Primary Alcoholic cirrhosis of liver Hepatomegaly Nausea and vomiting, unspecified vomiting type [facility]* Diagnosis Hepatomegaly- Primary [facility]* Diagnosis Alcohol use- Primary [facility]* Diagnosis Alcoholic liver disease (HCC)- Primary Alcoholic liver damage, unspecified [facility] Diagnosis Hepatomegaly [facility]* Diagnosis Hepatomegaly- Primary [facility]* Diagnosis Alcohol abuse- Primary Alcohol abuse, [...] examination of urine [facility]* Diagnosis Acute pain of right shoulder [facility]* Diagnosis Acute bacterial conjunctivitis of both eyes- Primary Tachycardia Tachycardia, unspecified Jaundice Jaundice, unspecified, not of [facility]* Diagnosis Generalized abdominal pain- Primary Abdominal pain, generalized Generalized abdominal pain Abdominal pain, generalized Other ascites Sepsis, due to unspecified organism, unspecified whether acute organ dysfunction present (Multi) Alcoholic cirrhosis, unspecified whether ascites present (Multi) documented in this encounter [facility] Work Phone: Hospital Discharge instructionsAdditional Instructions GoLytely [...] determine what additional testing they need to do.[facility] Work Phone: Reason for referral (narrative)* [...] ECG W/LEAST 12 LDS W/I&R Carmita Patrick, ANNETTE.PODIATRY DOCTOR [address] [place] [address] [facility] [place] [address] [place] [id number] Referral ID Status Reason Start Date Expiration Date Visits Requested Visits Authorized [id number] Authorized Auto-Generat ed Referral 01/02/2022 04/15/2022 1 [...] ABD & PELVIS W/CONTRAST Carmita Patrick APRN.CNP [address] [place] [address] Ct Imaging Referral ID Status Reason Start Date Expiration Date Visits Requested Visits Authorized [id number] Pending Review Auto-Generat ed Referral 01/02/2022 02/01/[address] [facility] for referral (narrative)* Outpatient Procedure (Routine) - Pending Review Specialty Diagnoses / Procedures Referred By Medardo t Referred To Contact [facility] Diagnoses Hepatomegaly Procedures DDI VIBRATION CONTROLLED TRANSIENT ELASTOGRAPHY (VCTE) LIVER ELASTOGRAPHY W/O IMAG W/I&R Noemi Russell MD [address] [place] [address] [facility] [place] [address] [place] [address] Referral ID Status Reason Start Date Expiration Date Visits Requested Visits Authorized [id number] Pending Review Auto-Generat ed Referral 01/19/2022 01/19/2023 1 1 * Diagnostic Procedure Only (Routine) - Authorized Specialty Diagnoses / Procedures Referred By Contac t Referred To Contact US IMAGING Diagnoses Hepatomegaly Procedures US DOPPLER COMPLETE DUP-SCAN ARTL GENO ABDL/PEL/SCROT&/RPR ORGN COM Noemi Russell MD [address] [facility] [place] [address] Us Imaging Referral ID Status Reason Start Date Expiration Date Visits Requested Visits Authorized [id number] Authorized Auto-Generat ed Referral 01/19/2022 02/18/2023 1 1 * Diagnostic Procedure Only (Routine) - Authorized Specialty Diagnoses / Procedures Referred By Contac t Referred To Contact US IMAGING Diagnoses Hepatomegaly Procedures US ABD LIVER VASCULAR US ABDOMINAL REAL TIME W/IMAGE LIMITED DUP-SCAN ARTL GENO ABDL/PEL/SCROT&/RPR ORGN COM Noemi Russell MD [address] [place] [address] Us Imaging Referral ID Status Reason Start Date Expiration Date Visits Requested Visits Authorized [id number] Authorized Auto-Generat ed Referral 01/19/2022 02/18/[address] [facility] for referral (narrative)* Diagnostic Procedure Only (Routine) - Closed Specialty Diagnoses / Procedures Referred By Contac t Referred To Contact US IMAGING Diagnoses Hepatomegaly Procedures US DOPPLER COMPLETE DUP-SCAN ARTL GENO ABDL/PEL/SCROT&/RPR ORGN [facility] Noemi Russell MD [address] [facility] [place] [address] Us Imaging Referral ID Status Reason Start Date Expiration Date V isits Requested Visits Authorized [id number] Closed Auto-Generate d Referral 01/19/2022 02/18/2023 1 1 * Diagnostic Procedure Only (Routine) - Closed Specialty Diagnoses / Procedures Referred By Contac t Referred To Contact US IMAGING Diagnoses Hepatomegaly Procedures US ABD LIVER VASCULAR US ABDOMINAL REAL TIME W/IMAGE LIMITED DUP-SCAN ARTL GENO ABDL/PEL/SCROT&/RPR ORGN [facility] Noemi Russell MD [address] [place] [address] Us Imaging Referral ID Status Reason Start Date Expiration Date V isits Requested Visits Authorized [id number] Closed Auto-Generate d Referral 01/19/2022 02/18/[address] [facility] for visit Narrative* Diagnostic Procedure Only (Routine) - Closed Specialty Diagnoses / Procedures Referred By Medardo t Referred To Contact US IMAGING Diagnoses Hepatomegaly Procedures US ABD LIVER VASCULAR US ABDOMINAL REAL TIME W/IMAGE LIMITED DUP-SCAN ARTL GENO ABDL/PEL/SCROT&/RPR ORGN [facility] Noemi Russell MD [address] [place] [id number] Us Imaging Referral ID Status Reason Start Date Expiration Date V isits Requested Visits Authorized [id number] Closed Auto-Generate d Referral 01/19/2022 02/18/[address] [facility] for visit Narrative* Outpatient Procedure (Routine) - Closed Specialty Diagnoses / Procedures Referred By Medardo t Referred To Contact [facility] Diagnoses Hepatomegaly Procedures DDI VIBRATION CONTROLLED TRANSIENT ELASTOGRAPHY (VCTE) LIVER ELASTOGRAPHY W/O IMAG W/I&R Noemi Russell MD [address] [place] [address] [facility] [place] [address] [place] [address] Referral ID Status Reason Start Date Expiration Date V isits Requested Visits Authorized [id number] Closed Auto-Generate d Referral 01/19/2022 01/19/2023 1 1 [facility] Reason for Referral Specialty Diagnoses / Procedures Referred By Medardo t Referred To Contact CT IMAGING Diagnoses Intra-abdominal and pelvic swelling, mass and lump, unspecified site Nausea Abdominal bloating Generalized abdominal pain Weight loss Early satiety Alcohol abuse Dark urine Pulsatile abdomen Hepatomegaly Procedures CT ABD/PEL W IVCON CT ABD & PELVIS W/CONTRAST Carmita Patrick, CELL ATTENDANT HELPER.PODIATRY DOCTOR [address] [place] [address] Ct Imaging Referral ID Status Reason Start Date Expiration Date V isits Requested Visits Authorized [id number] Closed Auto-Generat ed Referral Patient Cleared - [...] vomiting type Procedures CONSULT TO HEPATOLOGY OFFICE/OUTPATIENT [facility] 60-74 MINUTES Carmita Patrick CELL ATTENDANT HELPER.PODIATRY DOCTOR [address] [place] [address] Referral ID Status Reason Start Date Expiration Date Visits Requested Visits Authorized [id number] Authorized PCP Requested Referral 01/05/2022 01/05/2023 1 1 Specialty Diagnoses / Procedures Referred By Contac t Referred To Contact MR IMAGING Diagnoses Hepatomegaly Hypersplenism Procedures MRI LIVER WO/W IVCON MRI ABDOMEN W/O & W/CONTRAST MATERIAL Aleks Najera MD [address] [place] [address] Mr Imaging Referral ID Status Reason Start Date Expiration Date V isits Requested Visits Authorized [id number] Open Auto-Generate d Referral 01/09/2022 02/08/2023 1 1 Specialty Diagnoses / Procedures Referred By Contac t Referred To Contact Diagnoses Hepatomegaly Nausea and vomiting, unspecified vomiting type Procedures CONSULT TO HEPATOLOGY OFFICE/OUTPATIENT [facility] 60-74 MINUTES Aleks Najera MD [address] [facility] [place] [address] Referral ID Status Reason Start Date Expiration Date Visits Requested Visits Authorized [id number] Authorized PCP Requested Referral 01/09/2022 01/09/2023 1 1 Referral ID Status Reason Start Date Expiration Date Visits Requested Visits Authorized [id number] Authorized PCP Requested Referral 01/09/2022 01/09/2023 1 1 Specialty Diagnoses / Procedures Referred By Contac t Referred To Contact XR IMAGING Diagnoses Acute pain of right shoulder Procedures XR SHOULDER GENERAL 3V OR MORE AP/TRUE AP/OTHER RT X-RAY SHOULDER COMPLET MIN 2 VIEWS Schuyler Hartman APRN.PODIATRY DOCTOR [address] [place] [address] [place] [address] Referral ID Status Reason Start Date Expiration Date Visits Re quested Visits Authorized [id number] Closed 11/04/2020 12/04/2021 1 1 Summary Purpose Family History No Family History Records FoundNo Family History Records FoundNo Family History Records FoundNo Family History Records FoundNo Family History Records Found Advance Directives No Advanced Directives Records Found Advance Directive Response Recorded Date/ Time Do you have a Healthcare Power of Programmer Numerical Control? No December 02, 2024 2:51pm Date Activated [...] 7:46am edema December 02, 2024 2: 46pm [facility] December 04, 2024 10 :00am Reason for [...] 7:46am edema December 02, 2024 2: 46pm [facility] December 04, 2024 10 :00am ABDOMINAL MASS [...] or prosecute any alcohol or drug abuse patient.[facility] HospitalIn the event this information is protected by the Federal Confidentiality of Alcohol and Drug Abuse Patient Records regulations: The Federal rules restrict any use of the information to criminally investigate or prosecute any alcohol or drug abuse patient.[facility] HospitalIn the event this information is protected by the Federal Confidentiality of Alcohol and Drug Abuse Patient Records regulations: The Federal rules restrict any use of the information to criminally investigate or prosecute any alcohol or drug abuse patient.[facility] HospitalIn the event this information is protected by the Federal Confidentiality of Alcohol and Drug Abuse Patient Records regulations: The Federal rules restrict any use of the information to criminally investigate or prosecute any alcohol or drug abuse patient.[facility] HospitalIn the event this information is protected by the Federal Confidentiality of Alcohol and Drug Abuse Patient Records regulations: The Federal rules restrict any use of the information to criminally investigate or prosecute any alcohol or drug abuse patient.[facility] HospitalIn the event this information is protected by the Federal Confidentiality of Alcohol and Drug Abuse Patient Records regulations: The Federal rules restrict any use of the information to criminally investigate or prosecute any alcohol or drug abuse patient.[facility] HospitalIn the event this information is protected by the Federal Confidentiality of Alcohol and Drug Abuse Patient Records regulations: The Federal rules restrict any use of the information to criminally investigate or prosecute any alcohol or drug abuse patient.[facility] HospitalIn the event this information is protected by the Federal Confidentiality of Alcohol and Drug Abuse Patient Records regulations: The Federal rules restrict any use of the information to criminally investigate or prosecute any alcohol or drug abuse patient.[facility] HospitalIn the event this information is protected by the Federal Confidentiality of Alcohol and Drug Abuse Patient Records regulations: The Federal rules restrict any use of the information to criminally investigate or prosecute any alcohol or drug abuse patient.[facility] HospitalIn the event this information is protected by the Federal Confidentiality of Alcohol and Drug Abuse Patient Records regulations: The Federal rules restrict any use of the information to criminally investigate or prosecute any alcohol or drug abuse patient.[facility] HospitalIn the event this information is protected by the Federal Confidentiality of Alcohol and Drug Abuse Patient Records regulations: The Federal rules restrict any use of the information to criminally investigate or prosecute any alcohol or drug abuse patient.[facility] HospitalIn the event this information is protected by the Federal Confidentiality of Alcohol and Drug Abuse Patient Records regulations: The Federal rules restrict any use of the information to criminally investigate or prosecute any alcohol or drug abuse patient.[facility] HospitalIn the event this information is protected by the Federal Confidentiality of Alcohol and Drug Abuse Patient Records regulations: The Federal rules restrict any use of the information to criminally investigate or prosecute any alcohol or drug abuse patient.[facility] HospitalIn the event this information is protected by the Federal Confidentiality of Alcohol and Drug Abuse Patient Records regulations: The Federal rules restrict any use of the information to criminally investigate or prosecute any alcohol or drug abuse patient.[facility] HospitalIn the event this information is protected by the Federal Confidentiality of Alcohol and Drug Abuse Patient Records regulations: The Federal rules restrict any use of the information to criminally investigate or prosecute any alcohol or drug abuse patient.[facility] HospitalIn the event this information is protected by the Federal Confidentiality of Alcohol and Drug Abuse Patient Records regulations: The Federal rules restrict any use of the information to criminally investigate or prosecute any alcohol or drug abuse patient.[facility] HospitalIn the event this information is protected by the Federal Confidentiality of Alcohol and Drug Abuse Patient Records regulations: The Federal rules restrict any use of the information to criminally investigate or prosecute any alcohol or drug abuse patient.[facility] HospitalIn the event this information is protected by the Federal Confidentiality of Alcohol and Drug Abuse Patient Records regulations: The Federal rules restrict any use of the information to criminally investigate or prosecute any alcohol or drug abuse patient.[facility] HospitalIn the event this information is protected by the Federal Confidentiality of Alcohol and Drug Abuse Patient Records regulations: The Federal rules restrict any use of the information to criminally investigate or prosecute any alcohol or drug abuse patient.[facility] HospitalIn the event this information is protected by the Federal Confidentiality of Alcohol and Drug Abuse Patient Records regulations: The Federal rules restrict any use of the information to criminally investigate or prosecute any alcohol or drug abuse patient.[facility] HospitalIn the event this information is protected by the Federal Confidentiality of Alcohol and Drug Abuse Patient Records regulations: The Federal rules restrict any use of the information to criminally investigate or prosecute any alcohol or drug abuse patient.[facility] HospitalIn the event this information is protected by the Federal Confidentiality of Alcohol and Drug Abuse Patient Records regulations: The Federal rules restrict any use of the information to criminally investigate or prosecute any alcohol or drug abuse patient.[facility] HospitalIn the event this information is protected by the Federal Confidentiality of Alcohol and Drug Abuse Patient Records regulations: The Federal rules restrict any use of the information to criminally investigate or prosecute any alcohol or drug abuse patient.[facility] HospitalIn the event this information is protected by the Federal Confidentiality of Alcohol and Drug Abuse Patient Records regulations: The Federal rules restrict any use of the information to criminally investigate or prosecute any alcohol or drug abuse patient.[facility] HospitalIn the event this information is protected by the Federal Confidentiality of Alcohol and Drug Abuse Patient Records regulations: The Federal rules restrict any use of the information to criminally investigate or prosecute any alcohol or drug abuse patient.[facility] Care Teams (unrecognized sec tion and content) Apprentice Technician Relationship Specialty Start Date End Date Carmita Patrick APRN.PODIATRY DOCTOR [address] [place], [place] [address] PCP - General Family Practice 12/27/21 Apprentice Technician Relationship Specialty Start Date End Date Carmita Patrick APRN.PODIATRY DOCTOR [address] [place], [place] [address] PCP - General Family Medicine 12/27/21 Apprentice Technician Relationship Specialty Start Date End Date Carmita Patrick, CELL ATTENDANT HELPER.PODIATRY DOCTOR [address] [facility] [place] [address] PCP - General Family Medicine 12/27/21 Apprentice Technician Relationship Specialty Start Date End Date Carmita Patrick, CELL ATTENDANT HELPER.PODIATRY DOCTOR [address] [facility] [place] [address] PCP - General Family Medicine 12/27/21 Apprentice Technician Relationship Specialty Start Date End Date Carmita Patrick, CELL ATTENDANT HELPER.PODIATRY DOCTOR [address] [place] [address] PCP - General Family Medicine 12/27/21 Apprentice Technician Relationship Specialty Start Date End Date Carmita Patrick, CELL ATTENDANT HELPER.PODIATRY DOCTOR [address] [place] [address] PCP - General Family Medicine 12/27/21 Apprentice Technician Relationship Specialty Start Date End Date Carmita Patrick, CELL ATTENDANT HELPER.PODIATRY DOCTOR [address] [place] [address] PCP - General Family Medicine 12/27/21 Apprentice Technician Relationship Specialty Start Date End Date Carmita Patrick, CELL ATTENDANT HELPER.PODIATRY DOCTOR [address] [place] [address] PCP - General Family Medicine 12/27/21 Apprentice Technician Relationship Specialty Start Date End Date Carmita Patrick, CELL ATTENDANT HELPER.PODIATRY DOCTOR [address] [facility] [place] [address] PCP - General Family Medicine 12/27/21 Apprentice Technician Relationship Specialty Start Date End Date Carmita Patrick, CELL ATTENDANT HELPER.PODIATRY DOCTOR [address] [facility] [place] [address] PCP - General Family Medicine 12/27/21 Apprentice Technician Relationship Specialty Start Date End Date Carmita Patrick, CELL ATTENDANT HELPER.PODIATRY DOCTOR [address] [facility] [place] [address] PCP - General Family Medicine 12/27/21 Apprentice Technician Relationship Specialty Start Date End Date Carmita Patrick, CELL ATTENDANT HELPER.PODIATRY DOCTOR [address] [place] [address] PCP - General Family Medicine 12/27/21 Apprentice Technician Relationship Specialty Start Date End Date Carmita Patrick, CELL ATTENDANT HELPER.PODIATRY DOCTOR [address] [place] [address] PCP - General Family Medicine 12/27/21 Apprentice Technician Relationship Specialty Start Date End Date Carmita Patrick, CELL ATTENDANT HELPER.PODIATRY DOCTOR [address] [place] [address] PCP - General Family Medicine 12/27/21 Apprentice Technician Relationship Specialty Start Date End Date Carmita Patrick, CELL ATTENDANT HELPER.PODIATRY DOCTOR [address] [place] [address] PCP - General Family Medicine 12/27/21 Apprentice Technician Relationship Specialty Start Date End Date Carmita Patrick, CELL ATTENDANT HELPER.PODIATRY DOCTOR [address] [place] [address] PCP - General Family Medicine 12/27/21 Apprentice Technician Relationship Specialty Start Date End Date Carmita Patrick, CELL ATTENDANT HELPER.PODIATRY DOCTOR [address] [place] [address] PCP - General Family Medicine 12/27/21 Apprentice Technician Relationship Specialty Start Date End Date Carmita Patrick, CELL ATTENDANT HELPER.PODIATRY DOCTOR [address] [facility] [place] [address] PCP - General Family Medicine 12/27/21 Apprentice Technician Relationship Specialty Start Date End Date Carmita Patrick, CELL ATTENDANT HELPER.PODIATRY DOCTOR [address] [place] [address] PCP - General Family Medicine 12/27/21 Apprentice Technician Relationship Specialty Start Date End Date Carmita Patrick, CELL ATTENDANT HELPER.PODIATRY DOCTOR [address] [place] [address] PCP - General Family Medicine 12/27/21 Team Status: Active Member Role/Relationship Status Dates Carmita Patrick MACHINE TOOL DESIGNER, MACHINE TOOL DESIGNER-C Primary Care Provider Active Team Status: Inactive [...] December 02, 2024 End: December 02, 2024 aCrmita Patrick MACHINE TOOL DESIGNER, MACHINE TOOL DESIGNER-C Primary Care Provider Active Start: December 02, 2024 End: December 02, 2024 Team Status: Inactive Member Role/Relationship Status Dates Carmita Patrick MACHINE TOOL DESIGNER, MACHINE TOOL DESIGNER-C Primary Care Provider Active Start: December 04, 2024 End: December 04, 2024 Carmita Patrick NP, MACHINE TOOL DESIGNER-C Referring Provider Active Start: December 04, 2024 End: December 04, 2024 Maria Ines Ceja NP-C Attending Provider Active Start: December 04, 2024 End: December 04, 2024 Team Status: Active Member Role/Relationship Status Dates Carmita Patrick NP, MACHINE TOOL DESIGNER-C Primary Care Provider Active Start: December 04, [...] 2024 End: December 02, 2024 Carmita Patrick MACHINE TOOL DESIGNER, MACHINE TOOL DESIGNER-C Primary Care Provider Active Start: December 02, 2024 End: December 02, 2024 Team Status: Inactive Member Role/Relationship Status Dates Carmita Patrick NP, MACHINE TOOL DESIGNER-C Primary Care Provider Active Start: December 04, 2024 End: December 04, 2024 Maria Ines Ceja MACHINE TOOL DESIGNER-C Attending Provider Active Start: December 04, 2024 End: December 04, 2024 Maria Ines Ceja , MACHINE TOOL DESIGNER-C Referring Provider Active Start: December 04, 2024 End: December 04, 2024 Team Status: Active Member Role/Relationship Status Dates Carmita Patrick NP, MACHINE TOOL DESIGNER-C Primary Care Provider Active Start: December 04, 2024 Maria Ines Ceja , MACHINE TOOL DESIGNER-C Attending Provider Active Start: December 04, 2024 Maria Ines Ceja MACHINE TOOL DESIGNER-C Referring Provider Active Start: December 04, 2024 Team Status: Inactive Member Role/Relationship Status Dates Carmita Patrick NP, MACHINE TOOL DESIGNER-C Primary Care Provider Active Start: December 04, 2024 End: December 04, 2024 Maria Ines Ceja MACHINE TOOL DESIGNER-C Attending Provider Active Start: December 04, 2024 End: December 04, 2024 Maria Ines Ceja , MACHINE TOOL DESIGNER-C Referring Provider Active Start: December 04, 2024 End: December 04, 2024 Apprentice Technician Relationship Specialty [place] [address] [place] [facility] Department of Medicine-General Internal [place] [id number] Consulting Physician Hospitalist 12/05/24 Team Status: Inactive Member Role/Relationship Status Dates Carmita Patrick NP, MACHINE TOOL DESIGNER-C Primary Care Provider Active Start: December 29, 2024 End: December 29, 2024 Carmita Patrick MACHINE TOOL DESIGNER, MACHINE TOOL DESIGNER-C Referring Provider Active Start: December 29, 2024 End: December 29, 2024 Maria Ines Ceja MACHINE TOOL DESIGNER-C Attending Provider Active Start: December 29, 2024 [...] CT ABD & PELVIS W/CONTRAST Carmita Patrick, CELL ATTENDANT HELPER.PODIATRY DOCTOR [address] [place] [address] Ct Imaging Referral ID Status Reason Start Date Expiration Date V isits Requested Visits Authorized [id number] Closed Auto-Generat ed Referral Patient Cleared - [...] vomiting type Procedures CONSULT TO HEPATOLOGY OFFICE/OUTPATIENT [facility] 60-74 MINUTES Carmita Patrick, CELL ATTENDANT HELPER.PODIATRY DOCTOR [address] [place] [address] Referral ID Status Reason Start Date Expiration Date V isits Requested Visits Authorized [id number] Closed PCP Requested Referral 01/05/2022 01/05/2023 1 1 Reason Comments Appointment Reason Comments Liver Disease Specialty Diagnoses / Procedures Referred By Contac t Referred To Contact Diagnoses Hepatomegaly Nausea and vomiting, unspecified vomiting type Procedures CONSULT TO HEPATOLOGY OFFICE/OUTPATIENT [facility] 60-74 MINUTES Aleks Najera MD [address] [place] [address] Referral ID Status Reason Start Date Expiration Date V isits Requested Visits Authorized [id number] Closed PCP Requested Referral 01/09/2022 01/09/2023 1 1 Reason Comments Care Coordination MAP clinic follow up Reason Onset Date Comments Refill Request 03/17/2022 Reason Onset Date Comments Refill Request 10/02/2022 Refill Request 2022 Reason Comments Patient Question Specialty Diagnoses / Procedures Referred By Contac t Referred To Contact Radiology / [facility] Diagnoses Acute pain of right shoulder [M25.511] Procedures XR GENERAL 7 Schuyler Hartman, CELL ATTENDANT HELPER.PODIATRY DOCTOR [address] [place] [address] [facility] [address] [place] [address] Referral ID Status Reason Start Date Expiration Date Visits Re quested Visits Authorized [id number] Closed 11/04/2020 02/02/2021 99 99 Reason Comments Eye Problem Possible SETH pink ey e x 2 days Reason Comments Abdominal Pain Specialty Diagnoses / Procedures Referred By Contac t Referred To Contact Diagnoses Generalized abdominal pain Procedures No [place] [address] [facility] Department of [place] [address] Phone: tel: fax: [facility] [address] [place] [address] Phone: tel: fax: Referral ID Status Reason Start Date Expiration Date Visits Re quested Visits Authorized [id number] 1 1 (unrecognized sect ion and content) No Status Records FoundNo Status Records FoundNo Status Records FoundNo Status Records FoundNo Status Records Found INFORMATION SOURCE (unrecogn ized section and content) DATE CREATED AUTHOR [facility]/15/2022 [facility] DATE CREATED AUTHOR AUTHOR'S ORGANIZ ATION 12/06/2024 [facility] DATE CREATED AUTHOR AUTHOR'S ORGANIZ ATION 12/07/2024 [facility] DATE CREATED AUTHOR AUTHOR'S ORGANIZ ATION 12/26/2024 [facility] DATE CREATED AUTHOR AUTHOR'S ORGANIZ ATION 12/29/2024 [facility] Goals (unrecognized section and content) Goals may [...] 4 mg/min 0956 (Given - Provider: Roxanna Dokcery RN) furosemide (Lasix) tablet 20 mg (CANCELED) [...] provider. 1002 (Not Given - Provider: Roxanna Dockery RN - Reason: See Provider Order)1151 (Not [...] Reason: Patient/family refused) 0857 (Given - Provider: oSndra Ureña RN)1624 (Given - Provider: Sondra Ureña [...] BE BASED ON THE PRIMARY CLINICAL RECORDS. [employer] provides no warranty or guarantee of the accuracy or completeness of information in this document.
[2024-12-30] MEDS: 0.9% Normal Saline (1000mL) 1,000 ML 125 ML IV ×2 (03:03→10:41)
[2024-12-30] MEDS: 0.9% Saline Lock 10 ML Syringe IV (03:22)
[2024-12-30 04:09] LABS: AST(SGOT) 292 U/L (<=37); Alanine Aminotransfer ALT/SGPT 150 U/L (<=46); Albumin, Serum 2.5 g/dL (3.5-5.0); Alkaline Phosphatase 253 U/L (40-129); Anion Gap 31 (5-15); BUN 145 mg/dL (4-19); BUN/Creat Ratio 8.9 RATIO (10-20); Calcium,Total 7.3 mg/dL (7.6-11.0); Carbon Dioxide 13.3 mmol/L (21.0-32.0); Chloride 79 mmol/L (98-108); Estimated Creatinine Clearance 5.60 ml/min (50-250); Globulin 2.2 g/dL (2.2-4.2); Glucose 96 mg/dL (70-99); Potassium 5.8 mmol/L (3.3-5.1)
[2024-12-30 04:17] LABS: Immature Granulocytes Count 0.400 X10^3/uL (0.0-0.0); Mean Platelet Vol. 12.2 fl (6.2-12.0); NRBC Flagged by Analyzer 0.1 % (0-5); POSITIVE COUNT YES; POSITIVE DIFFERENTIAL YES; Platelet Count 123 K/mm3 (150-450); RBC Distribution Width CV 13.7 % (11.6-14.6); RBC Distribution Width SD 49.0 fl (35.1-43.9)
[2024-12-30] MEDS: Lidocaine Jelly 2% 20 ML Syringe (URO-JET) 1 APPLIC TOPICAL (05:08)
[2024-12-30 05:23] LABS: Hematocrit 30.5 % (40-54); Hemoglobin 11.0 g/dL (13.0-16.5); Red Blood Count 3.00 M/mm3 (4.6-6.2)
[2024-12-30 05:24] LABS: Mean Corpuscular Volume 101.7 fL (80-94)
[2024-12-30 05:26] LABS: Mean Corp Hgb Conc 36.1 g/dL (32-36)
[2024-12-30 05:28] LABS: Differential Indicated SCAN CRITERIA MET; White Blood Count 34.3 K/mm3 (4.4-11.0)
[2024-12-30 05:48] LABS: Differential Comment SCANNED
[2024-12-30 07:10] LABS: VBG BASE EXCESS -10 mmol/L (-1.0-3.5); VBG PO2 64 mmHg (25-40); VBG SO2 93 % (50-70)
[2024-12-30 07:11] LABS: VBG TCO2 16 mmol/L (23-33)
--- NOTE | 2024-12-30 08:49 | US_ITS ---
PROCEDURE: PARACENTESIS WITH US 12/30/2024 REASON FOR EXAM: R/O SBP TECHNIQUE: PARACENTESIS WITH US The procedure as well as the benefits and possible complications including infection and bleeding were explained to the patient and the patient's . The right lower quadrant was prepped and draped in the usual sterile fashion. Following local anesthetic application, a 5 Yoruba catheter was placed into the fluid. 6200 mL of dark colored tracy fluid was aspirated. The patient tolerated the procedure well. COMPARISON: None FINDINGS: 6200 mL of dark tracy colored fluid was aspirated. A sample was sent to the laboratory. US/Paracentesis with US IMPRESSION: Successful paracentesis as described. The patient tolerated the procedure well . Reading Location: [place] [address]
[2024-12-30 09:33] LABS: Prothrombin Time (Protime)PT. 26.3 SECONDS (11.7-14.9)
[2024-12-30 09:56] LABS: Albumin, Serum 2.5 g/dL (3.5-5.0)
--- NOTE | 2024-12-30 10:15 | EX.PCM.CONCC ---
Assessment & Plan Assessment/Plan (1) Decompensated cirrhosis: PLAN: Plan RECOMMENDATIONS: 1. Continue vasopressor support. 2. Administer albumin 1.5 g/kg today. 3. Continue lactulose and rifaximin. 4. Continue empiric antimicrobials. 5. Proceed with ultrasound-guided paracentesis for diagnostic and therapeutic purposes. 6. Decisions regarding dialysis initiation per nephrology. 7. Following extensive discussion with the patient's family, recommend hospice care consultation. IMPRESSIONS: 1. Acute decompensated liver cirrhosis The patient has a longstanding history of alcohol dependency with further decline in his hepatic profile noted. The patient currently has a MELD 3.0 score of 41 points. In addition, his presentation has been complicated by acute kidney injury, which I suspect is related to hepatorenal syndrome. The patient has already been initiated on vasopressor support. He will be continued on lactulose and rifaximin. Unfortunately, given his history of alcohol dependency, the patient is not a candidate for transplantation. This case was discussed with the patent searcher from [facility], who were in agreement that the patient was hospice care appropriate. 2. Multifactorial shock Most likely combination of distributive and hypovolemic etiologies with underlying liver cirrhosis and possible sepsis related to SBP contributing. Blood cultures are currently pending. Agree with continuing vasopressor support to maintain hemodynamic stability. In light of the patient's suspected SBP, will administer IV albumin per protocol. Antimicrobials will be continued. Plan to proceed with ultrasound-guided paracentesis for diagnostic and therapeutic purposes. 3. Acute kidney injury Most likely related to underlying hepatorenal syndrome in the setting of acute decompensated liver cirrhosis. Continue current supportive care as noted above. Unclear utility in initiating dialysis at this particular stage, given that the patient is not a transplantation candidate. 4. Hepatic encephalopathy Continue lactulose and rifaximin as ordered. Consultation has already been placed to gastroenterology. 5. Hyponatremia/hyperkalemia/longstanding alcohol dependency Complicates care, management, recovery and prognosis. Continue supportive measures as noted above. CODE STATUS: I had a very priscilla discussion with the patient's and sons this morning regarding the patient's current clinical situation. I provided them the input that was rendered by the director international and patent searcher at [facility]. At this particular time, they are in agreement with proceeding with referral to hospice care services. TIME: 48 minutes of critical care time, independent of procedures, was spent addressing the patient's acute decompensated liver cirrhosis, multifactorial shock, acute kidney injury, hepatic encephalopathy, review of all data and collaboration with the care team. HPI Consult Data Date of Consult: 12/30/24 HPI Narrative Reason for Consultation: Acute decompensated liver cirrhosis HPI Narrative: The patient is a 44-year-old male, with a history as outlined below, who presented to the emergency department on December 29 with worsening jaundice and weakness. The patient has a known history of underlying liver cirrhosis with an unspecified liver mass, portal hypertension, recurrent ascites, alcohol dependency and unintentional weight loss. The patient was admitted to [facility] in November 2024 with worsening abdominal pain, distention and jaundice. The patient was ultimately admitted to the hospital and medically managed for acute decompensated cirrhosis with elevated MELD score. The patient was ultimately treated with antimicrobials, despite SBP being ruled out on paracentesis. Lactulose and rifaximin were titrated. Ultimately, the patient was not felt to be a candidate for transplantation given his alcohol abuse history. According to the patient's , the patient last drank alcohol at the end of November. On presentation to the emergency department, the patient was documented to have a temperature of 94 ?F. He was notably tachycardic and tachypneic with a presenting blood pressure of 92/79 mmHg. Laboratory evaluation was notable for a white blood cell count of 29,000. Platelet count was low at 125,000. Coagulation profile was notable for an INR of 2.2. Chemistry profile was notable for a sodium of 121 with a potassium of 6.3, chloride of 80, bicarbonate of 9.0, BUN of 145 and creatinine of 16.2. Lactate was normal at 1.6. Total bilirubin was elevated at 34. Lipase was increased to 271. CT abdomen/pelvis demonstrated a cirrhotic liver morphology with fatty infiltration and stigmata of portal hypertension including large volume ascites. The patient was ultimately started on vasopressor support after central venous catheter cannulation along with lactulose and rifaximin. He was admitted to the medical intensive care unit for further management. Based upon his laboratories noted today, the patient has a MELD 3.0 score of 41 points giving him an estimated 90-day survival of 10.7%. [facility] Medical History no medical history Home Medications ?Medication ?Instructions ?Recorded ?Last Taken ?Type famotidine 10 mg tablet (Acid 20 mg PO DAILY 12/02/24 12/29/24 History Controller) ondansetron HCl 4 mg tablet 4 mg PO Q8H nausea #3 tabs 12/04/24 Unknown Rx furosemide 20 mg tablet (Lasix) 40 mg PO QAM 12/29/24 12/29/24 History furosemide 40 mg tablet 40 mg PO DAILY 12/29/24 12/29/24 History lactulose 10 gram/15 mL oral 20 ml PO Q8H 12/29/24 Unknown History solution rifaximin 550 mg tablet (Xifaxan) 550 mg PO BID 12/29/24 12/29/24 History simethicone 80 mg chewable tablet 80 mg PO PRN 12/29/24 Unknown History (Gas Relief 80 (simethicone)) spironolactone 100 mg tablet 100 mg PO DAILY 12/29/24 12/29/24 History Allergy/AdvReac Type Severity Reaction Status Date / Time No Known Allergies Allergy Verified 12/29/24 11:06 Family History no significant family his Surgical History no surgical history Social History Smoking Status: Current every day smoker tobacco type: cigarettes alcohol intake: current alcohol intake frequency: a few times a week Alcohol type: beer ROS Review of Systems ROS Unobtainable: due to mental status Physical Exam Const alert and no apparent distress Constitutional Narrative: Grossly jaundiced in appearance. General Appearance: lethargic and ill appearing HEENT normocephalic and head/scalp atraumatic Eyes PERRL and EOMs intact bilaterally Eyes Narrative: Scleral icterus present Neck supple General: trachea midline and CVC in place Chest inspection of chest normal Resp normal respiratory effort Effort and Inspection: tachypneic Auscultation: diminished lung sounds Cardio S1 normal heart sound and S2 normal heart sound Rate: tachycardic GI soft to palpation and non-tender Inspection: abdominal distention Palpation: ascites Extremity General Extremity: edema; Negative for clubbing Neuro CN's II-XII intact bilaterally, moves all extremities and no focal motor deficits Psych Mood & Affect: flat affect Lab / Micro Data 12/30/24 03:04 12/30/24 03:04 Labs: Laboratory Results - last 24 hr 12/29/24 12:05: WBC 29.0 H, RBC 3.58 L, Hgb 13.2, Hct 35.2 L, MCV 98.3 H, MCH 36.9 H, MCHC 37.5 H, RDW Std Deviation 50.1 H, RDW Coeff of Johnson 14.0, Plt Count 125 L, MPV 12.1 H, Immature Gran % (Auto) 0.700, Neut % (Auto) 92.7 H, Lymph % (Auto) 3.8 L, [place] % (Auto) 2.7, Eos % (Auto) 0.0, Baso % (Auto) 0.1, Absolute Neuts (auto) 26.8 H, Absolute Lymphs (auto) 1.10, Nucleated RBC % 0.1, PT 25.1 H, INR 2.2, Sodium 121 L, Potassium 6.3 H*, Chloride 80 L, Carbon Dioxide 9.0 L*, Anion Gap 33 H, BUN 145 H*, Creatinine 16.20 H*, Estim Creat Clear Calc 5.63 L*, Est GFR (MDRD) Non-Af 3 L, BUN/Creatinine Ratio 9.0 L, Glucose 70, Calcium 7.5 L, Total Bilirubin 34.00 H*, Direct Bilirubin 25.50 H, AST 285 H, ALT 145 H, Alkaline Phosphatase 243 H, Ammonia 52.2, Total Protein 4.9 L, Albumin 2.5 L, Globulin 2.4, Lipase 271 H 12/29/24 12:20: Potassium 5.2 H 12/29/24 13:10: Lactic Acid 1.6 12/29/24 13:38: Sodium 120 L, Potassium 6.6 H*, Chloride 81 L, Carbon Dioxide 7.2 L*, Anion Gap 32 H, BUN 146 H*, Creatinine 16.00 H*, Estim Creat Clear Calc 5.70 L*, Est GFR (MDRD) Non-Af 3 L, BUN/Creatinine Ratio 9.1 L, Glucose 65 L, Calcium 7.3 L, Phosphorus 17.0 H*, Albumin 2.4 L 12/29/24 16:08: POC Glucose 310 H 12/29/24 18:25: Potassium 5.1 12/30/24 03:04: WBC 34.3 H*, RBC 3.00 L, Hgb 11.0 L, Hct 30.5 L, MCV 101.7 H, MCH 36.7 H, MCHC 36.1 H, RDW Std Deviation 49.0 H, RDW Coeff of Johnson 13.7, Plt Count 123 L, MPV 12.2 H, Immature Gran % (Auto) 1.200 H, Neut % (Auto) 94.3 H, Lymph % (Auto) 2.7 L, [place] % (Auto) 1.6, Eos % (Auto) 0.0, Baso % (Auto) 0.2, Absolute Neuts (auto) 32.3 H, Absolute Lymphs (auto) 0.93, Nucleated RBC % 0.1, Differential Comment SCANNED, Sodium 123 L, Potassium 5.8 H, Chloride 79 L, Carbon Dioxide 13.3 L, Anion Gap 31 H, BUN 145 H*, Creatinine 16.30 H*, Estim Creat Clear Calc 5.60 L*, Est GFR (MDRD) Non-Af 3 L, BUN/Creatinine Ratio 8.9 L, Glucose 96, Calcium 7.3 L, Total Bilirubin 32.50 H*, AST 292 H, ALT 150 H, Alkaline Phosphatase 253 H, Total Protein 4.6 L, Albumin 2.5 L, Globulin 2.2, Albumin/Globulin Ratio 1.1 12/30/24 09:04: PT 26.3 H, INR 2.4, Albumin 2.5 L ABG Data ABG results: ABG 12/29/24 17:35 Specimen Type DON VBG pH 7.39 VBG pO2 64 H VBG HCO3 15 L VBG Total CO2 16 L VBG O2 Sat (Calc) 93 H VBG Base Excess -10 L POC Mix VBG pCO2 Pt Tmp 24.9 L Rhythm Strip Rhythm Strip: Sinus Rhythm Rate: 55 Ectopy: None Imaging Radiology Impression Brain CT 12/29/24 11:58 IMPRESSION: Mild degree of cerebral atrophy. Reading Location: [facility] Abdomen/Pelvis CT 12/29/24 13:28 IMPRESSION: Cirrhotic liver morphology. Fatty infiltration of the liver. Stigmata of portal hypertension including large volume ascites. Normal appearance of the kidneys. No collecting system dilation or calculus. Gallstones. No biliary ductal dilation. Reading Location: [id number] Chest X-Ray 12/30/24 01:00 IMPRESSION: Bilateral basilar atelectatic pulmonary changes. Right subclavian central catheter is in good position with its tip at the atriocaval junction. [facility] Charges/Coding Procedures Hospitalists Procedures: 20215 Critical Care 1st Hr
[2024-12-30] MEDS: Albumin Human 25% (100 mL) 25 GM/100 ML BAG IV ×4 (10:32→15:16)
--- NOTE | 2024-12-30 10:37 | CASEMGMT ---
Social Work- SW received notice that search engine optimization manager spoke with pt and she is agreeable to hospice consult. SW placed referral. VALENCIA updated RNCM and ICU staff. VALENCIA remains available to follow. JOHNATHON Mcwilliams
[2024-12-30] MEDS: Piperacil/Tazobactam 3.375 GM in 0.9% Normal Saline (50mL MB+) 50 ML IV (11:03)
--- NOTE | 2024-12-30 11:37 | CHAPLAIN ---
Type of Pastoral Visit ___ Initial Visit _x__ Follow-up Visit ___ On-call Visit ___ General Patient Visit ___ Spiritual Assessment ___ Family Conference ___ Bereavement ___ Rapid Response ___ Code Blue ___ Other (describe below) Pastoral Care Referral From ___ Patient ___ Family _x__ Nurse _x__ Physician ___ Washer Engineer Helper ___ Four H Agent ___ Other (describe below) Sacrament/Intervention ___ Active listening ___ Anointing ___ Taoism ___ Bereavement ___ Communion ___ Nichol exploration ___ ___ Life review ___ Prayer ___ Reconciliation ___ Sacrament of Sick _x__ Supportive presence ___ Wedding ___ Other (describe below) Pastoral Comments DR and RN requested support for family members; pt is resting quietly at this time and is expected to go with hospice for end of life care; met and offered support to spouse in the hallway; encouraged spouse to be in the room and near patient; met with mother, brother, and two sons in the waiting room; offered time to talk, supportive presence, and kinds of care that they would appreciate; mother in particular is tearful; sat with mother and spoke of the difficulties of this time; listened to son speak of nothing anyone can do now; offer to return to check on them later
--- NOTE | 2024-12-30 11:39 | CASEMGMT ---
Social Work- SW called [facility] to follow up on referral. Hospice will meet with family at 2PM. Bedside nurse, environmental web crawler, and pt family notified of time. SW offered support to pt family. Family reports no needs at this time. VALENCIA remains available to follow. JOHNATHON Mcwilliams
--- NOTE | 2024-12-30 11:57 | CON.PCM.RE_ITS ---
Assessment & Plan Assessment/Plan (1) Acute uremia: (2) Acute hyperkalemia: (3) Acute renal failure: PLAN: Baseline creatinine last month was less than 1. Presented with a creatinine of more than 6. Differential is fairly broad. Has severe leukocytosis, possible he has some sort of infection and sepsis related shock. Advanced cirrhosis with bilirubin of 34. Could be hepatorenal syndrome. Other differential include prerenal TORRES. CT abdomen without any hydronephrosis. Hyponatremia. Likely hypervolemic in the setting of cirrhosis. Hyperkalemia. Mediated by acute renal failure, acidosis. Overnight he has received IV bicarbonate. Potassium is somewhat better. Discussed with ICU attending. Fairly sick. He really should be transferred to tertiary care center as soon as possible. Transfer line has been called, pending bed availability. Ideally intermittent hemodialysis is not advisable in patients with severe liver disease due to significant osmotic shifts. Other than potassium, no acute indications for renal replacement therapy as of this morning. There is also ongoing discussions about goals of care as per my discussion with Dr. Akhtar. To temporize hyperkalemia, would give 1 more liter of bicarbonate. (4) Acute hyponatremia: HPI Consult Data Date of Consult: 12/30/24 HPI Narrative Reason for Consultation: TORRES HPI Narrative: JOSE PARKER, is a 44 M who presents To the hospital with severe jaundice. Nephrology on consultation in view of acute renal failure. Patient is a poor historian, somewhat confused, most of the history is obtained from the chart. Apparently he was recently admitted at [facility] with liver related issues. His creatinine last month was less than 1. Presented with severe jaundice, bilirubin 34. Found to have acute renal failure, creatinine of more than 6, severe hyperkalemia, potassium of 6.6, acidosis, bicarbonate 7. CT abdomen without any hydronephrosis. Currently fairly confused. [facility] History no medical history Home Medications ?Medication ?Instructions ?Recorded ?Last Taken ?Type famotidine 10 mg tablet (Acid 20 mg PO DAILY 12/02/24 12/29/24 History Controller) ondansetron HCl 4 mg tablet 4 mg PO Q8H nausea #3 tabs 12/04/24 Unknown Rx furosemide 20 mg tablet (Lasix) 40 mg PO QAM 12/29/24 12/29/24 History furosemide 40 mg tablet 40 mg PO DAILY 12/29/2412/15 History lactulose 10 gram/15 mL oral 20 ml PO Q8H 12/29/24 Unk nown History solution rifaximin 550 mg tablet (Xifaxan) 550 mg PO BID 12/29/24 History simethicone 80 mg chewable tablet 80 mg PO PRN 5 Unknown History (Gas Relief 80 (simethicone)) spironolactone 100 mg tablet 100 mg PO DAILY 12/29/24 12/29/24 History Allergy/AdvReac Type Severity Reaction Status Date / Time No Known Allergies Allergy Verified 12/29/24 11:06 Family History no significant family his Surgical History no surgical history Social History Smoking Status: Current every day smoker tobacco type: cigarettes alcohol intake: current alcohol intake frequency: a few times a week Alcohol type: beer ROS Review of Systems ROS Unobtainable: due to encephalopathy Physical Exam Narrative no obvious distress + icterus no JVD s1s2 no murmurs lungs clear abdomen soft no organomegaly no edema no cyanosis das + Lab / Micro Data 12/30/24 03:04 12/30/24 03:04 Labs: Laboratory Results - last 24 hr 12/29/24 12:05: WBC 29.0 H, RBC 3.58 L, Hgb 13.2, Hct 35.2 L, MCV 98.3 H, MCH 36.9 H, MCHC 37.5 H, RDW Std Deviation 50.1 H, RDW Coeff of Johnson 14.0, Plt Count 125 L, MPV 12.1 H, Immature Gran % (Auto) 0.700, Neut % (Auto) 92.7 H, Lymph % (Auto) 3.8 L, [place] % (Auto) 2.7, Eos % (Auto) 0.0, Baso % (Auto) 0.1, Absolute Neuts (auto) 26.8 H, Absolute Lymphs (auto) 1.10, Nucleated RBC % 0.1, PT 25.1 H , INR 2.2, Sodium 121 L, Potassium 6.3 H*, Chloride 80 L, Carbon Dioxide 9.0 L*, Anion Gap 33 H, BUN 145 H*, Creatinine 16.20 H*, Estim Creat Clear Calc 5.63 L*, Est GFR (MDRD) Non-Af 3 L, BUN/Creatinine Ratio 9.0 L, Glucose 70, Calcium 7.5 L , Total Bilirubin 34.00 H*, Direct Bilirubin 25.50 H, AST 285 H, ALT 145 H, A lkaline Phosphatase 243 H, Ammonia 52.2, Total Protein 4.9 L, Albumin 2.5 L, Globulin 2.4, Lipase 271 H 12/29/24 12:20: Potassium 5.2 H 12/29/24 13:10: Lactic Acid 1.6 12/29/24 13:38: Sodium 120 L, Potassium 6.6 H*, Chloride 81 L, Carbon Dioxide 7.2 L*, Anion Gap 32 H, BUN 146 H*, Creatinine 16.00 H*, Estim Creat Clear Calc 5.70 L*, Est GFR (MDRD) Non-Af 3 L, BUN/Creatinine Ratio 9.1 L, Glucose 65 L, C alcium 7.3 L, Phosphorus 17.0 H*, Albumin 2.4 L 12/29/24 16:08: POC Glucose 310 H 12/29/24 18:25: Potassium 5.1 12/30/24 03:04: WBC 34.3 H*, RBC 3.00 L, Hgb 11.0 L, Hct 30.5 L, MCV 101.7 H, M CH 36.7 H, MCHC 36.1 H, RDW Std Deviation 49.0 H, RDW Coeff of Johnson 13.7, Plt Count 123 L, MPV 12.2 H, Immature Gran % (Auto) 1.200 H, Neut % (Auto) 94.3 H, L ymph % (Auto) 2.7 L, [place] % (Auto) 1.6, Eos % (Auto) 0.0, Baso % (Auto) 0.2, A bsolute Neuts (auto) 32.3 H, Absolute Lymphs (auto) 0.93, Nucleated RBC % 0.1, Differential Comment SCANNED, Sodium 123 L, Potassium 5.8 H, Chloride 79 L, C arbon Dioxide 13.3 L, Anion Gap 31 H, BUN 145 H*, Creatinine 16.30 H*, Estim Creat Clear Calc 5.60 L*, Est GFR (MDRD) Non-Af 3 L, BUN/Creatinine Ratio 8.9 L, Glucose 96, Calcium 7.3 L, Total Bilirubin 32.50 H*, AST 292 H, ALT 150 H, A lkaline Phosphatase 253 H, Total Protein 4.6 L, Albumin 2.5 L, Globulin 2.2, Albumin/Globulin Ratio 1.1 12/30/24 09:04: PT 26.3 H, INR 2.4, Albumin 2.5 L ABG Data ABG results: ABG 12/29/24 17:35 Specimen Type DON VBG pH 7.39 VBG pO2 64 H VBG HCO3 15 L VBG Total CO2 16 L VBG O2 Sat (Calc) 93 H VBG Base Excess -10 L POC Mix VBG pCO2 Pt Tmp 24.9 L Rhythm Strip Rhythm Strip: Sinus Rhythm Rate: 55 Ectopy: None Imaging Radiology Impression Brain CT 12/29/24 11:58 IMPRESSION: Mild degree of cerebral atrophy. [facility]/Pelvis CT 12/29/24 13:28 IMPRESSION: Cirrhotic liver morphology. Fatty infiltration of the liver. Stigmata of portal hypertension including large volume ascites. Normal appearance of the kidneys. No collecting system dilation or calculus. Gallstones. No biliary ductal dilation. Reading Location: [id number] Chest X-Ray 12/30/24 01:00 IMPRESSION: Bilateral basilar atelectatic pulmonary changes. Right subclavian central catheter is in good position with its tip at the atriocaval junction. Reading [facility]
[2024-12-30] MEDS: Norepinephrine 8 MG in 0.9% Normal Saline (250mL Bag) 242 ML 28.1 MG CONT INF (13:04)
--- NOTE | 2024-12-30 13:50 | FLU_PTH ---
PATIENT: JOSE PARKER LOC: ICU U#:[id number] AGE/SX: 44/M ROOM: ICU02 RE12/30/[address]: Dr. Suzanne Palumbo MD : 1980 BED: 1 DIS: 12/30/2024 SPEC #: [id number] RECD: 12/30/24 14:31 STATUS: SOUT REQ #: [id number] AGGIE: 12/30/24 13:[address]: Suzanne Palumbo DEPT: CYTOLOGY RECD BY: Abdirashid Bazan ENTERED: 12/31/24 09:03 SP TYPE: Fluid OTHR DR: MD Dr. Kodak Coughlin MD Dr. Bruce Arthur, MD Dr. Derek Brown, DO Dr. Marcelo Martinez, DO MD Dr. Bebo Latif MD Dr. Gautam Baskaran, MD Dr. Yordanos Habtegebriel, MD Dr. Hemant Dand, MD Dr. Jayaprakas Dasari, MD Dr. Jodi Hannan, MD Dr. Jennifer Kline, MD Dr. Jose Ochoa, MD Dr. Justin Wong, MD Dr. Kimber Foust, MD Dr. Lamia Aljundi, MD Dr. Marisa Magana, MD Dr. Prakash Chand, MD Dr. Pritam Ghosh, MD Dr. Pavan Irukulla, MD Dr. Paul Nielsen, MD Dr. Rahsaan Friend, DO MD Dr. Donnell Parker, DO MD Dr. Maira Ahuja MD Dr. Timothy Fernstrom, DO MD Dr. Laron Toure MD Heather Evans, SWITCH REPAIRER-C Maria Ines Ceja, SWITCH REPAIRER-C Alissa Lala, SWITCH REPAIRER-C Val Patrick, SWITCH REPAIRER-YUAN Mcwilliams PA Tissues: A - PARACENTESIS FLUID Procedures: Special Stain Group II Surgery Specimen Level IV Cytospin Fluid HEADER OPERATION: Ultrasound guided paracentesis PRE-OP DIAGNOSIS: Ascites TISSUE SUBMITTED: A- Paracentesis fluid for cytology DIAGNOSIS CYTOLOGY A. Paracentesis fluid (cystospin, cell block): * No malignant cells identified. CYTOLOGY STUDY Slides are reviewed. CYTOLOGY GROSS A. Received is 75 ml of cloudy-tracy fluid labeled with the patient's name and and designated per the requisition as Paracentesis fluid. Submitted for cytology and cell block preparation. Mr 12/31/2024 CPT: 81311,12046
[2024-12-30] MEDS: Lidocaine 2% (20 ml mdv) 20 ML Vial INFILT (13:51)
--- NOTE | 2024-12-30 14:18 | DS.PCM_ITS ---
Providers Date of Admission: 12/30/24 Date of Discharge: 12/30/24 Primary Care Physician: RAJESH Redd Consultations 12/30/24 06:46 Consult: Nephrology Routine Consulting Provider: Bernard Samayoa Reason for Consult: hepatitis, ARF EMERGENT Consult: No MD Notified: Yes Date Notified: 12/30/24 Time Notified: 08:09 Method of Notification: Verbal 12/30/24 07:57 Consult: Nephrology Routine Consulting Provider: Brittani Zhang Reason for Consult: hepatorenal syndrome, Hyperkalemia EMERGENT Consult: Yes MD Notified: Yes Date Notified: 12/30/24 Time Notified: 07:57 Method of Notification: Text Comments:: called, no answer 12/30/24 08:00 Consult: Duct Installer / Pulmonary Medicine Routine Consulting Provider: Intensivists/Pulmonary Med Reason for Consult: shock in the setting of hepatorenal syndrome EMERGENT Consult: No MD Notified: Yes Date Notified: 12/30/24 Time Notified: 08:00 Method of Notification: Text 12/30/24 08:05 Consult: Gastroenterology Routine Consulting Provider: [facility] Reason for Consult: acute hepatic failure, alcoholic liver cirrhosis, hepatorenal syndrome EMERGENT Consult: Yes MD Notified: Yes Date Notified: 12/30/24 Time Notified: 08:05 Method of Notification: Text Comments:: called on the phone, no answer. backline message sent 12/30/24 08:52 Consult: Inpatient Palliative Care Routine Consulting Provider: Leah Taylor Reason for Consult: Goals of Care discussion EMERGENT Consult: No MD Notified: Yes Date Notified: 12/30/24 Time Notified: 08:59 Method of Notification: Text 12/30/24 10:13 Consult: Hospice / Outpatient Palliative Care Routine Consulting Provider: [facility] Reason for Consult: decompensated alcoholic cirrhosis EMERGENT Consult: No Notified: Yes Date Notified: 12/30/24 Time Notified: 10:13 Method of Notification: Verbal Reason For Visit: DECOMPENSATED ALCOHOLIC CIRRHOSIS, HYPONATREMIA, Diagnosis Discharge Diagnosis (1) Acute uremia: Status: Acute Code(s): N19 - Unspecified kidney failure (2) Acute hyperkalemia: Status: Acute Code(s): E87.5 - Hyperkalemia (3) Acute renal failure: Status: Acute Code(s): N17.9 - Acute kidney failure, unspecified (4) Acute hyponatremia: Status: Acute Code(s): E87.1 - Hypo-osmolality and hyponatremia Medications at Discharge Home Medications famotidine 10 mg tablet (Acid Controller) 20 mg PO DAILY 12/02/24 ondansetron HCl 4 mg tablet 4 mg PO Q8H nausea #3 tabs 12/04/24 furosemide 20 mg tablet (Lasix) 40 mg PO QAM 12/29/24 furosemide 40 mg tablet 40 mg PO DAILY 12/29/24 lactulose 10 gram/15 mL oral solution 20 ml PO Q8H 12/29/24 rifaximin 550 mg tablet (Xifaxan) 550 mg PO BID 12/29/24 simethicone 80 mg chewable tablet (Gas Relief 80 (simethicone)) 80 mg PO PRN 12/29/24 spironolactone 100 mg tablet 100 mg PO DAILY 12/29/24 Hospital Course Operations None Procedures None Summary of Care Provided Minutes Spent on Discharge: 42 Hospital Course: Patient is a 44-year-old male with a past medical history of acute alcoholic cirrhosis who was admitted to the ED on 12/30/2024 after being sent there from his junior electrical engineer office. He had planned for follow-up appointment with his junior electrical engineer and was told to come to the ED due to concern for decompensation of his alcoholic liver cirrhosis and progressive jaundice. Stated he had a past history of alcoholic cirrhosis with jaundice and ascites and possible hepatocellular carcinoma. He had increased weakness and yellowing. He had been recently admitted at [facility] for decompensated alcoholic liver cirrhosis and discharged on December 12, 2024. His last drink was December 01. He was weak and dizzy at home and fell in the bathroom on the day of admission though he did not hit his head. He admitted compliance with his lactulose. On admission WBC was elevated at 29,000. Hemoglobin was 13.2. Platelets were 125. Sodium was 120 and potassium was 5.1. Bicarb was 7.2. Creatinine was 16 and total bilirubin was 34. AST was 285 and ALT was 145. CT of the abdomen showed cirrhotic liver with portal hypertension and large volume ascites with normal kidneys and no biliary duct dilatation. CT of the brain showed mild cerebral atrophy. He had a right subclavian central venous line placed in the ED due to hypotension. Plan was for patient to be transferred to [facility] and he was accepted there but due to delay in transfer he was admitted to the ICU pending bed availability. He was admitted and managed for acute hepatorenal syndrome in the setting of acute decompensated liver cirrhosis, shock likely marked multifactorial and TORRES with anion gap metabolic acidosis as well as hyponatremia. Gastroenterology, critical care and nephrology were consulted. He did have paracentesis with removal of 6.2 L of dark-colored tracy fluid. He was started on antibiotics due to concerns for SBP. He was also given albumin. Due to patient's poor prognosis and him not likely being a transplant candidate, the inside sales engineer had an extensive discussion with patient's family who were open to a hospice consult. Hospice was therefore consulted and patient and family were agreeable to hospice. He was therefore discharged to hospice medical facility on 12/30/2024. Patient was seen and examined on the day he was discharged. His sons were by his bedside. Patient was very weak and lethargic though he was able to recognize his sons. Patient was very deeply jaundiced. Unable to do review of systems due to his lethargy. Labs were vitals were reviewed. Physical Exam Const alert Constitutional Narrative: Patient very lethargic and confused. Patient very very deeply jaundiced. HEENT normocephalic and head/scalp atraumatic Eyes EOMs intact bilaterally Neck supple and no JVD Lymph Lymphatic: no lymphedema noted Resp Resp Narrative: Mildly diminished breath sounds bibasilarly. No wheezes or crackles. Cardio regular rate, regular rhythm, S1 normal heart sound, S2 normal heart sound and no murmurs GI non-tender GI Narrative: Abdomen mildly distended. Positive fluid thrill. No organomegaly or generalized tenderness. Extremity normal capillary refill, no clubbing, cyanosis or edema and no calf tenderness Skin Skin Narrative: Has generalized petechiae. Neuro Neuro Narrative: Patient very lethargic. Positive asterixis. Motor Exam: general weakness Psych Psych Narrative: Confused. Weight / BMI Weight Weight: 166 lb 7.184 oz Body Mass Index (BMI) 25.2 ABG / Lab / Microbiology Data 12/30/24 03:04 12/30/24 03:04 Laboratory: Laboratory Results - last 24 hr 12/30/24 13:50: Fluid Source ASCITES FLUID, Fluid Color YELLOW, Fluid Appearance CLEAR, Fluid WBC 0.056, Fluid RBC 55, Fluid Tot Cell Count 0.066, Fld Polynuclear WBCs # 0.012, Fld Polynuclear WBCs % 21.5, Fluid Mononuclear WBCs 0.044, Fld Mononuclear WBCs % 78.5, Fluid Neutrophils 9, Fluid Lymphocytes 20, Fluid Monocytes 41, Fluid Macrophages 22, Fld Mesothelial Cells 8, Fl Pathologist Comment Reviewed, Fluid Comment 2 SEE COMMENT Microbiology: Microbiology 12/30/24 13:50 Fluid - Ascites Gram Stain - Final 12/30/24 13:50 Fluid - Ascites Body Fluid Culture - Preliminary No growth-Final to follow 12/29/24 13:38 Blood Culture (Wb) - Left Wrist Blood Culture - Preliminary No growth in 48 hours. 12/29/24 13:10 Blood Culture (Wb) - Left Wrist Blood Culture - Preliminary No growth in 48 hours. ABG: ABG 12/29/24 17:35 Specimen Type DON VBG pH 7.39 VBG pO2 64 H VBG HCO3 15 L VBG Total CO2 16 L VBG O2 Sat (Calc) 93 H VBG Base Excess -10 L POC Mix VBG pCO2 Pt Tmp 24.9 L Radiography Diagnostic Testing: Radiology Impression Abdomen/Pelvis CT 12/29/24 13:28 IMPRESSION: Cirrhotic liver morphology. Fatty infiltration of the liver. Stigmata of portal hypertension including large volume ascites. Normal appearance of the kidneys. No collecting system dilation or calculus. Gallstones. No biliary ductal dilation. Reading Location: [id number] Chest X-Ray 12/30/24 01:00 IMPRESSION: Bilateral basilar atelectatic pulmonary changes. Right subclavian central catheter is in good position with its tip at the atriocaval junction. Reading Location: [facility] D/C Instructions Discharge Activity: Return to Normal Activity DC O2, CPAP, BIPAP Needs Home O2 Discharge instructions: No Meaningful Use Info Meaningful Use Meaningful Use Diagnoses (Choose all that apply): None applicable Discharge Plan Admission Admit Date/Time: 12/30/24 02:01 Primary Reason for Your Visit: acute decompensated alcoholic liver cirrhosis Attending Provider: Suzanne Palumbo Primary Care Provider: Val Patrick NP Consulting Providers: Ruben Donis; Kodak Hall; Darinel Sales; Alberto Akhtar; Marcelo Su; Bebo Flood; Rivera Conner; Hanna Merchant; Manuel Qiu; Carlos Barboza; Farzad Jiménez; Elis Kiran; Carmela Jennings; Cornejo,Kaleigh; Jony,Clyde; Irmercedez,Brennan; Nehemiah,Gabino; Rellsi,Donnell; Alisa Kim; Maira Quintero; Mina Mack; Abhilash Marx; Berenice Schultz; Laron Webb; Brittani Zhang; Adam Hobbs; Keegan Mckeon; Megan Mejia; Maria Ines Ceja; Rose Pope; Bernard Samayoa; Leah Taylor; Marcelo Martinez; Kathe Valero; Maria Ines Bacon; Alissa Lala; Val Patrick NP; Annmarie Nolen Discharge Orders/Prescriptions Prescriptions: No Action ondansetron HCl 4 mg tablet 4 mg PO Q8H Qty: 3 0RF furosemide [Lasix] 20 mg tablet 40 mg PO QAM Xifaxan 550 mg tablet 550 mg PO BID famotidine [Acid Controller] 10 mg tablet 20 mg PO DAILY spironolactone 100 mg tablet 100 mg PO DAILY furosemide 40 mg tablet 40 mg PO DAILY simethicone [Gas Relief 80 (simethicone)] 80 mg tablet,chewable 80 mg PO PRN Rx Instructions: after meals lactulose 10 gram/15 mL solution 20 ml PO Q8H Referrals / Follow Up: Val Patrick NP, [facility] [Primary Care Provider, Palliative Medicine] Disposition Disposition (needs filled in before D/C Order can be placed): Hospice in Medical Facility Charges/Coding Visit Charges Inpatient E&M: 79618 Disch Hosp >30min
--- NOTE | 2024-12-30 14:19 | CASEMGMT ---
Addendum entered by Chantal Carmen 12/30/24 15:32: VALENCIA spoke with hospice who reports a transport time of 6-7pm. VALENCIA updated ICU staff. SW updated pt and family, as well as offered support. Oj Addendum entered by Chantal Carmen 12/30/24 14:29: Pt has numerous family members present; family is supportive of one another and d/c plan. SW will update with transport time when notified by hospice. RNCM updated of discharge plan. JOHNATHON Mcwilliams Original Note: VALENCIA spoke with hospice nurse Rosy who reports that pt family signed for IPU. Hospice nurse to set transport and notify SW/ICU staff. VALENCIA completed transport form and placed on chart. JOHNATHON Mcwilliams
[2024-12-30 14:31] LABS: Cytology, Body Fluid / CSF SEE PATHOLOGY REPORT
--- NOTE | 2024-12-30 14:44 | CHAPLAIN ---
Type of Pastoral Visit ___ Initial Visit _x__ Follow-up Visit ___ On-call Visit ___ General Patient Visit ___ Spiritual Assessment ___ Family Conference ___ Bereavement ___ Rapid Response ___ Code Blue ___ Other (describe below) Pastoral Care Referral From ___ Patient ___ Family _x__ Nurse _x__ Physician ___ Residential Subcontractor ___ Radio Engineering Teacher ___ Other (describe below) Sacrament/Intervention ___ Active listening ___ Anointing ___ Confucianism ___ Bereavement ___ Communion ___ Nichol exploration ___ ___ Life review ___ Prayer ___ Reconciliation ___ Sacrament of Sick _x__ Supportive presence ___ Wedding ___ Other (describe below) Pastoral Comments this time the patient is alone in the room and is awake; pt is offered presence, supportive listening, and prayer; pt responds but weakly; pt states that he is fine and does not need anything nor someone else to stay in the room; many family members are gathered in the waiting room in support of patient and one another
[2024-12-30 15:00] LABS: Body Fluid Mononuclear WBC # 0.044 10^3/uL; Body Fluid Mononuclear WBC % 78.5 %; Body Fluid Polynuclear WBC # 0.012 10^3/uL; Body Fluid Polynuclear WBC % 21.5 %; White Blood Count/Body Fluid 0.056 10^3/uL
[2024-12-30 15:17] LABS: Glucose, Body Fluid 112 mg/dL (Not Establ.)
[2024-12-30 15:26] LABS: Appearance/Body Fluid CLEAR; Auto B Fluid Analyzer BKGD Ct COUNTS W/IN LIMITS (W/IN LIMITS); Color/Body Fluid YELLOW; Source- Body Fluid ASCITES FLUID
--- NOTE | 2024-12-30 16:30 | EX.PCM.CON.G ---
HPI Consult Data Date of Consult: 12/30/24 HPI Narrative Reason for Consultation: Decompensated cirrhosis HPI Narrative: JOSE PARKER, is a 44-year-old male with a long history of alcohol use leading to confirmed alcoholic cirrhosis and alcoholic hepatitis with a MELD of at least 34 and failed steroid therapy at [facility]. He presented to the clinic with worsening jaundice and was sent to the ED for further evaluation. He was scheduled to get transferred however he was admitted to the ICU while awaiting transfer to a higher level of care. He presented to the intensive care unit (ICU) with worsening mental status, consistent with hepatic encephalopathy (HE). He has a known history of ascites. Now exhibiting severe hypotension requiring vasopressor support.?He has been experiencing increasing abdominal distension and pedal edema from ascites.? He has had paracentesis in the past but no history of SBP. He is currently being seen by sinker winder and incoming inspector for hyperuricemia, acute kidney injury and possible hepatorenal syndrome. [facility] History no medical history Home Medications ?Medication ?Instructions ?Recorded ?Last Taken ?Type famotidine 10 mg tablet (Acid 20 mg PO DAILY 12/02/24 12/29/24 History Controller) ondansetron HCl 4 mg tablet 4 mg PO Q8H nausea #3 tabs 12/04/24 Unknown Rx furosemide 20 mg tablet (Lasix) 40 mg PO QAM 12/29/24 12/29/24 History furosemide 40 mg tablet 40 mg PO DAILY 12/29/24 12/29/24 History lactulose 10 gram/15 mL oral 20 ml PO Q8H 12/29/24 Unknown History solution rifaximin 550 mg tablet (Xifaxan) 550 mg PO BID 12/29/24 12/29/24 History simethicone 80 mg chewable tablet 80 mg PO PRN 12/29/24 Unknown History (Gas Relief 80 (simethicone)) spironolactone 100 mg tablet 100 mg PO DAILY 12/29/24 12/29/24 History Allergy/AdvReac Type Severity Reaction Status Date / Time No Known Allergies Allergy Verified 12/29/24 11:06 Family History no significant family his Surgical History no surgical history Social History Smoking Status: Current every day smoker tobacco type: cigarettes alcohol intake: current alcohol intake frequency: a few times a week Alcohol type: beer ROS Review of Systems ROS Unobtainable: due to encephalopathy Physical Exam Const alert, oriented x3, no apparent distress and healthy appearing General Appearance: cooperative GI normal to inspection, nondistended, normoactive bowel sounds, soft to palpation, non-tender and non-distended Percussion: normal to percussion Rectal Exam: deferred Lab / Micro Data 12/30/24 03:04 12/30/24 03:04 Labs: Laboratory Results - last 24 hr 12/29/24 12:20: Potassium 5.2 H 12/29/24 16:08: POC Glucose 310 H 12/29/24 18:25: Potassium 5.1 12/30/24 03:04: WBC 34.3 H*, RBC 3.00 L, Hgb 11.0 L, Hct 30.5 L, MCV 101.7 H, MCH 36.7 H, MCHC 36.1 H, RDW Std Deviation 49.0 H, RDW Coeff of Johnson 13.7, Plt Count 123 L, MPV 12.2 H, Immature Gran % (Auto) 1.200 H, Neut % (Auto) 94.3 H, Lymph % (Auto) 2.7 L, [place] % (Auto) 1.6, Eos % (Auto) 0.0, Baso % (Auto) 0.2, Absolute Neuts (auto) 32.3 H, Absolute Lymphs (auto) 0.93, Nucleated RBC % 0.1, Differential Comment SCANNED, Sodium 123 L, Potassium 5.8 H, Chloride 79 L, Carbon Dioxide 13.3 L, Anion Gap 31 H, BUN 145 H*, Creatinine 16.30 H*, Estim Creat Clear Calc 5.60 L*, Est GFR (MDRD) Non-Af 3 L, BUN/Creatinine Ratio 8.9 L, Glucose 96, Calcium 7.3 L, Total Bilirubin 32.50 H*, AST 292 H, ALT 150 H, Alkaline Phosphatase 253 H, Total Protein 4.6 L, Albumin 2.5 L, Globulin 2.2, Albumin/Globulin Ratio 1.1 12/30/24 09:04: PT 26.3 H, INR 2.4, Albumin 2.5 L 12/30/24 13:50: Fluid WBC 0.056, Fluid Tot Cell Count 0.066, Fld Polynuclear WBCs # 0.012, Fld Polynuclear WBCs % 21.5, Fluid Mononuclear WBCs 0.044, Fld Mononuclear WBCs % 78.5, Fluid Glucose 112, Fluid LDH 80 ABG Data ABG results: ABG 12/29/24 17:35 Specimen Type DON VBG pH 7.39 VBG pO2 64 H VBG HCO3 15 L VBG Total CO2 16 L VBG O2 Sat (Calc) 93 H VBG Base Excess -10 L POC Mix VBG pCO2 Pt Tmp 24.9 L Rhythm Strip Rhythm Strip: Sinus Rhythm Rate: 55 Ectopy: None Imaging Radiology Impression Chest X-Ray 12/30/24 01:00 IMPRESSION: Bilateral basilar atelectatic pulmonary changes. Right subclavian central catheter is in good position with its tip at the atriocaval junction. Reading Location: [place] [address] Paracentesis Ultrasound 12/30/24 08:49 IMPRESSION: Successful paracentesis as described. The patient tolerated the procedure well. Reading Location: [facility] Assessment & Plan Assessment/Plan (1) Acute uremia: (2) Hypotension: (3) Leukocytosis: (4) Serum total bilirubin elevated: (5) Decompensated cirrhosis: (6) Jaundice: PLAN: 44yo male with alcoholic cirrhosis, ascites , alcoholic hepatitis MELD 34 , Acute renal failure with severe hyperuricemia, leukocytosis, metabolic acidosis, possible hepatoma and hepatic encephalopathy in the ICU with hypotension Primary Diagnosis:?Septic shock due to suspected infection in a patient with decompensated alcoholic cirrhosis and severe alcoholic hepatitis. Hypotension in cirrhosis can be driven by sepsis, which is common in these patients. Leukocytosis and metabolic acidosis in this setting are highly suggestive of infection (e.g., spontaneous bacterial peritonitis, pneumonia) until proven otherwise . Secondary Diagnosis:?Acute kidney injury (TORRES) likely multifactorial. Possible hepatorenal syndrome (HRS-TORRES) given advanced cirrhosis and ascites. Possible acute urate nephropathy due to severe hyperuricemia, contributing to the TORRES. Sepsis is also a major cause of TORRES in cirrhotic patients. Third Diagnosis:?Severe alcoholic hepatitis. MELD score of 34 signifies a severe flare, with poor prognosis without definitive treatment. Fourth Diagnosis:?Severe alcoholic cirrhosis with ascites. Underlying chronic disease causing portal hypertension, ascites, and contributing to systemic vasodilation and hypotension. Fifth Diagnosis:?Hepatic encephalopathy. Result of liver failure leading to accumulation of neurotoxins, including ammonia. Other Considerations: Possible Hepatoma:?Increases risk of portal vein thrombosis and intra-abdominal bleeding, and requires further evaluation. Plan Critical Care: Continue ICU admission with continuous hemodynamic monitoring. Continue vasopressor support to maintain a mean arterial pressure (MAP) goal of >60 mmHg. Assess fluid status carefully; judicious volume challenge while avoiding over-transfusion, which can worsen portal hypertension and ascites. Protect airway if mentation deteriorates further. Infection Control: Initiate a prompt and thorough workup for infection, including lynn-culturing (blood cultures, urinalysis, sputum culture if indicated). Perform diagnostic paracentesis to rule out spontaneous bacterial peritonitis (SBP). Start broad-spectrum antibiotics immediately, especially given the high likelihood of sepsis. Renal Management: Nephrology consulted for evaluation of TORRES and severe hyperuricemia. He is not a candidate for dialysis or continuous renal replacement therapy (CRRT) due to his severe liver disease Continue monitoring urine output, electrolytes, and renal function. Hepatic Management: Continue lactulose to promote ammonia excretion and treat HE. Titrate to 2-3 soft bowel movements daily. Add rifaximin for HE He is not a candidate for corticosteroids in the setting of severe alcoholic hepatitis, due to his failing of steroids and the risk of infection. Monitor INR Oncology/Imaging: Consider evaluation of possible hepatoma if he can be stabilized Nutritional Support: Initiate enteral feeding if possible. Discussions: I discussed the patient's poor prognosis with a MELD score of 34 and critical illness with the family. Engage palliative care and address goals of care. As per the patient is not a transplant candidate. Charges/Coding Visit Charges Inpatient E&M: 44760 Init Hosp L3
[2024-12-30 16:36] LABS: Red Cell Count/Body Fluid 55 /mm3
--- NOTE | 2024-12-30 16:40 | PCM.PROGNOTE ---
Subjective Subjective Patient seen and examined. He was admitted with a complaint of severe jaundice after being sent to the ED from his [facility] [place] office. He was found to be in hepatorenal failure and has been accepted at [facility]. He was admitted pending transfer to [facility]. Patient seen and examined this morning. Creatinine has gone up further to 16.3. Total bilirubin was 32. Potassium was up at 5.8 also. Anion gap was 31. Patient is very lethargic though he is able to open his eyes when asked questions. He knows who his sons are but is unable to give me any further information. Unable to do review of systems. Critical care was consulted this morning and spoke to patient and his relatives extensively this morning and were counseled about the futility of transfer as he is not a transplant candidate. Nephrology was also consulted but again question the futility of dialysis. Patient and family amenable to hospice. Hospice therefore consulted. Objective Data Objective Data Vital Signs: Vital Signs Temp Pulse Resp BP Pulse Ox O2 Del Method 95.2 F L 70 16 104/58 L 96 Room Air 12/30/24 16:00 12/30/24 16:00 12/30/24 16:00 12/30/24 16:00 12/30/24 16:00 12/30/24 16:00 Oxygen Delivery Method Room Air Weight: 166 lb 7.184 oz Body Mass Index (BMI) 25.2 Intake & Output: Intake and Output for Last 24 Hours 12/28/24 12/29/24 12/30/24 23:59 23:59 23:59 Intake Total 2207.73 / 2207.73 1630.18 / 1630.18 Output Total 6200 / 6200 Balance 2207.73 / 2207.73 -4569.82 / -4569.82 Lab / Micro Data 12/30/24 03:04 12/30/24 03:04 Labs: Laboratory Results - last 24 hr 12/29/24 12:20: Potassium 5.2 H 12/29/24 18:25: Potassium 5.1 12/30/24 03:04: WBC 34.3 H*, RBC 3.00 L, Hgb 11.0 L, Hct 30.5 L, MCV 101.7 H, MCH 36.7 H, MCHC 36.1 H, RDW Std Deviation 49.0 H, RDW Coeff of Johnson 13.7, Plt Count 123 L, MPV 12.2 H, Immature Gran % (Auto) 1.200 H, Neut % (Auto) 94.3 H, Lymph % (Auto) 2.7 L, [place] % (Auto) 1.6, Eos % (Auto) 0.0, Baso % (Auto) 0.2, Absolute Neuts (auto) 32.3 H, Absolute Lymphs (auto) 0.93, Nucleated RBC % 0.1, Differential Comment SCANNED, Sodium 123 L, Potassium 5.8 H, Chloride 79 L, Carbon Dioxide 13.3 L, Anion Gap 31 H, BUN 145 H*, Creatinine 16.30 H*, Estim Creat Clear Calc 5.60 L*, Est GFR (MDRD) Non-Af 3 L, BUN/Creatinine Ratio 8.9 L, Glucose 96, Calcium 7.3 L, Total Bilirubin 32.50 H*, AST 292 H, ALT 150 H, Alkaline Phosphatase 253 H, Total Protein 4.6 L, Albumin 2.5 L, Globulin 2.2, Albumin/Globulin Ratio 1.1 12/30/24 09:04: PT 26.3 H, INR 2.4, Albumin 2.5 L 12/30/24 13:50: Fluid Source ASCITES FLUID, Fluid Color YELLOW, Fluid Appearance CLEAR, Fluid WBC 0.056, Fluid RBC 55, Fluid Tot Cell Count 0.066, Fld Polynuclear WBCs # 0.012, Fld Polynuclear WBCs % 21.5, Fluid Mononuclear WBCs 0.044, Fld Mononuclear WBCs % 78.5, Fl Pathologist Comment May follow, Fluid Glucose 112, Fluid LDH 80, Fluid Comment 2 SEE COMMENT ABG Data ABG results: ABG 12/29/24 17:35 Specimen Type DON VBG pH 7.39 VBG pO2 64 H VBG HCO3 15 L VBG Total CO2 16 L VBG O2 Sat (Calc) 93 H VBG Base Excess -10 L POC Mix VBG pCO2 Pt Tmp 24.9 L Radiography Diagnostic Testing: Radiology Impression Chest X-Ray 12/30/24 01:00 IMPRESSION: Bilateral basilar atelectatic pulmonary changes. Right subclavian central catheter is in good position with its tip at the atriocaval junction. [facility] Paracentesis Ultrasound 12/30/24 08:49 IMPRESSION: Successful paracentesis as described. The patient tolerated the procedure well. Reading Location: [facility] Rhythm Strip Rhythm Strip: Sinus Rhythm Rate: 55 Ectopy: None Physical Exam Const Constitutional Narrative: Patient very lethargic and confused. Patient very very deeply jaundiced. HEENT normocephalic Eyes EOMs intact bilaterally Neck supple and no JVD Lymph Lymphatic: no lymphedema noted Resp Resp Narrative: Mildly diminished breath sounds bibasilarly. No wheezes or crackles. Cardio regular rate, regular rhythm, S1 normal heart sound, S2 normal heart sound and no murmurs GI soft to palpation and non-tender GI Narrative: Abdomen mildly distended. Positive fluid thrill. No organomegaly or generalized tenderness. Extremity normal capillary refill, no clubbing, cyanosis or edema and no calf tenderness Skin Skin Narrative: Has generalized petechiae. General Skin Exam: no breakdown Neuro Neuro Narrative: Patient very lethargic. Positive asterixis. Motor Exam: general weakness Psych Psych Narrative: Confused. Assessment & Plan Assessment/Plan (1) Hepatorenal syndrome: (2) Liver failure: PLAN: Plan #Acute hepatorenal syndrome in the setting of acute liver failure from decompensated alcoholic liver cirrhosis Patient very deeply jaundiced. He is very lethargic. Bilirubin elevated at 32 and creatinine is around 16. Was accepted at [facility] pending transfer. Critical care and nephrology as well as gastroenterology consulted this morning. Patient be hydrated with IV fluids. On lactulose and Xifaxan. Also on IV antibiotics due to concerns for SBP. Critical care had extensive conversation with patient and family about futility of transfer in light of him not being a transplant candidate. Patient agreeable to hospice. Hospice therefore consulted and patient accepted at inpatient hospice. Prognosis is very very poor. He is now awaiting transfer to inpatient hospice facility. #Shock likely multifactorial Patient started on Levophed. This in light of his liver cirrhosis and possible sepsis due to SBP. Blood cultures pending. Titrate Levophed to maintain MAP more than 65. Critical care on board. #Hyponatremia: likely due to acute renal failure from hepatorenal syndrome. Will defer any further treatment due to patient going to hospice #TORRES with anion gap metabolic acidosis likely due to acute hepatorenal syndrome from acute decompensated alcoholic liver cirrhosis. nephrology consulted. #Acute hepatic encephalopathy due to decompensated liver cirrhosis: On lactulose and rifaximin. Gastroenterology consulted as stated. #Hyperkalemia: Given Kayexalate as potassium is 5.8. Will monitor. #Alcohol use disorder: Now in acute decompensated alcoholic liver cirrhosis. His last drink was the day before admission. Prognosis very poor. Disposition: Patient accepted at inpatient hospice facility and is now awaiting transfer there. CODE STATUS: CODE STATUS changed to DNR CC pending transfer to hospice facility Charges/Coding Visit Charges Inpatient E&M: 35040 [facility] Hosp L3
[2024-12-30] MEDS: Albumin Human 25% (50 mL) 12.5 GM/50 ML IV.SOLN IV (17:00)
[2024-12-30 17:42] LABS: Neutrophil (Segs) 9 %
[2024-12-30 17:43] LABS: Body Fluid QC Type(s) BF1
[2024-12-31 10:43] LABS: Pathologist Comment/Body Fluid Reviewed
== END 2024-12-30 18:22 | disposition hospice, inpatient (51) | DRG 871 ==
LOC: ED 18:33 → ICU 12-30 02:13
PROVIDERS: Emergency Medicine; Internal Medicine Critical Care Medicine; Admitting Provider Family Medicine; Emergency Provider Emergency Medicine; PCP Nurse Practitioner Family; Visit Provider Student in an Organized Health Care Education/Training Program
DX: A41.9 Sepsis, unspecified organism (principal); R65.21 Severe sepsis with septic shock; K72.00 Acute and subacute hepatic failure without coma; K65.2 Spontaneous bacterial peritonitis; K76.7 Hepatorenal syndrome; R57.9 Shock, unspecified; E87.20 Acidosis, unspecified; C22.0 Liver cell carcinoma; K76.6 Portal hypertension; E87.1 Hypo-osmolality and hyponatremia; D63.1 Anemia in chronic kidney disease; K70.11 Alcoholic hepatitis with ascites; K76.82 Hepatic encephalopathy; G31.9 Degenerative disease of nervous system, unspecified; F10.20 Alcohol dependence, uncomplicated; K70.31 Alcoholic cirrhosis of liver with ascites; E87.5 Hyperkalemia; F17.210 Nicotine dependence, cigarettes, uncomplicated; Z51.5 Encounter for palliative care; R79.1 Abnormal coagulation profile; Z79.899 Other long term (current) drug therapy; Y90.9 Presence of alcohol in blood, level not specified
CPT/HCPCS: 49083; 70450; 71045; 74176; 80048; 80053; 80069; 80076; 82040; 82140; 82150; 82803; 82945; 82962; 83605; 83615; 83690; 84132; 85025; 85610; 87040; 87070; 87075; 87205; 88108; 88305; 88313; 89050; 93005; 94640; 99284; P9047; A4216; C1751; J0612; J0696; J1938; J2405